=== PATIENT | female | born 1935 | race Hispanic/Latino ===

== ENCOUNTER 2017-12-28 09:02 | Observation (INO) | payer MEDICARE, BC ==
--- NOTE | 2017-12-28 09:17 | ED PDOC ---
Arrival/HPI - General Time Seen by Provider: 12/28/17 09:07 Historian: Patient, EMS - History of Present Illness Narrative History of Present Illness (Text): 12/28/17 09:10 82 y/o female, pmh including htn/hld/dm/breast cancer/triple bypass surgery, nkda, c/o lt. sided abdomen pain x 2-3 days with no fall or trauma. Lt. sided abdominal pain, on and off, lasts bowel movement today, associated with nausea, no vomiting, no diarrhea, vague abdominal pain, no chest pain or shortness of breath, no palpitation, no numbness or tingling, no dizziness, no other medical or psychological complaints. 12/28/17 13:18 Past Medical History - Provider Review Nursing Documentation Reviewed: Yes - Cardiac Hx Pacemaker: No - Neurological Hx Paralysis: No - Hematological/Oncological Hx Blood Transfusions: No - Musculoskeletal/Rheumatological Hx Musculoskeletal Disorders: No - Psychiatric Hx Emotional Abuse: No Hx Physical Abuse: No Hx Substance Use: No - Anesthesia Hx Anesthesia Reactions: No Hx Malignant Hyperthermia: No - Suicidal Assessment Feels Threatened In Home Enviroment: No Family/Social History - Physician Review Nursing Documentation Reviewed: Yes Family/Social History: Unknown Family HX Hx Alcohol Use: No Hx Substance Use: No Allergies/Home Meds Allergies/Adverse Reactions: Allergies No Known Allergies Allergy (Verified 12/28/17 09:25) Home Medications: Home Meds Medication Instructions Recorded Confirmed Calcium Carbonate/Vitamin D 1 sgl PO DAILY 07/10/14 12/28/17 [Calcium 1200 600 mg-100 Iu] Insulin Glargine,Hum.rec.anlog 11 unit SC HS 07/10/14 12/28/17 [Lantus] Insulin Lispro [humALOG] 5 units SC ACB 07/10/14 12/28/17 Levothyroxine Sodium 0.1 mg PO QAM 07/10/14 12/28/17 [Levothyroxine] Simvastatin 20 mg PO DIN 07/10/14 12/28/17 Vitamin E 400 iu PO DAILY 07/10/14 12/28/17 Aspirin [Adult Aspirin] 325 mg PO DAILY 12/28/17 12/28/17 Lisinopril [Zestril] 5 mg PO DAILY 12/28/17 12/28/17 Multivit-Min/FA/Lycopen/Lutein 1 tab PO DAILY 12/28/17 12/28/17 [Centrum Silver Tablet] Review of Systems - Review of Systems Constitutional: absent: Fatigue, Fevers Eyes: absent: Vision Changes ENT: absent: Hearing Changes Respiratory: absent: SOB, Cough Cardiovascular: absent: Chest Pain Gastrointestinal: Abdominal Pain, Nausea. absent: Diarrhea, Vomiting Musculoskeletal: absent: Arthralgias, Back Pain Skin: absent: Rash, Pruritis Neurological: absent: Headache, Dizziness Psychiatric: absent: Anxiety, Depression, Suicidal Ideation Physical Exam - Systems Exam Head: Present: Atraumatic, Normocephalic Pupils: Present: PERRL Extroacular Muscles: Present: EOMI Conjunctiva: Present: Normal Mouth: Present: Moist Mucous Membranes Neck: Present: Normal Range of Motion Respiratory/Chest: Present: Clear to Auscultation, Good Air Exchange. No: Respiratory Distress, Accessory Muscle Use Cardiovascular: Present: Regular Rate and Rhythm, Normal S1, S2. No: Murmurs Abdomen: Present: Tenderness (mild lt. sided), Normal Bowel Sounds. No: Distention, Peritoneal Signs, Rebound, Guarding Back: Present: Normal Inspection. No: CVA Tenderness, Midline Tenderness, Paraspinal Tenderness Upper Extremity: Present: Normal Inspection. No: Cyanosis, Edema Lower Extremity: Present: Normal Inspection. No: Edema Neurological: Present: GCS=15, CN II-XII Intact, Speech Normal Skin: Present: Warm, Dry, Normal Color. No: Rashes Psychiatric: Present: Alert, Oriented x 3, Normal Insight, Normal Concentration Medical Decision Making ED Course and Treatment: 12/28/17 09:18 -labs/cardiac enzymes/bnp -EKG -CXR -CT abdomen and pelvis -IVF/aspirin/morphine/nitro/oxygen 2L -Oxygen 2L -Observe and reassess 12/28/17 09:33 -EKG: NSR @ 96 BPM, mild 1-2mm ST elevation on the lead aVR/V1, 1mm ST depression V6/I/II waves, T wave inversion lead V6, no previous ekg available for comparison. -Dr. Yomi foote paged about this abnormal ekg. 12/28/17 09:45 -Dr. Foote visualized the ekg, not recommend code HEART at this time, agreed there is ischemic changes. 12/28/17 13:14 -EKG: NSR @ 96 BPM, mild 1-2mm ST elevation on the lead aVR/V1, 1mm ST depression V6/I/II waves, T wave inversion lead V6, no previous ekg available for comparison. -CXR show No active disease. -CT abdomen and pelvis show No acute abnormality. Sigmoid diverticulosis with probable chronic muscular hypertrophy and mild mural thickening. Atypical position of cecum in left abdomen common nonspecific. No bowel obstruction. Hiatal hernia. Cardiomegaly. CABG. -Labs show no acute findings -Lipase within normal limit -Troponin is negative for the 1st set -UA show ordered and pending result -All labs and radiology results discussed with the patient and the daughter, clinically concerning for possible ACS as the CT abdomen and pelvis show no significant acute findings can clearly explained the cause of non-specific lt. sided abdominal pain, improved with the medication given in the ER to treat for ACS, recommend admission for tele for troponin trending. Pt. and daughter request Dr. Garzon as insurance account executive and Dr. Arredondo as GI for consult on this case, routine consult ordered. HEART score is 7, high. -I spoke to the hospitalist Dr. Shiva Helm, discussed about the case/labs/radiology results, agreed to admit this patient to telemetry and follow up on the consult/case. 12/28/17 13:19 -Pt. didn't take her lisinopril 5mg po today, just ordered. - RAD Interpretation Radiology Orders: CT abdomen and pelvis: FINDINGS: LOWER THORAX: Sternotomy wires. CABG. Cardiomegaly. No infiltrate. Small hiatal hernia. LIVER: Unremarkable. No gross lesion or ductal dilatation. GALLBLADDER AND BILE DUCTS: Unremarkable. PANCREAS: Unremarkable. No gross lesion or ductal dilatation. SPLEEN: Unremarkable. ADRENALS: Unremarkable. No mass. KIDNEYS AND URETERS: Left upper pole low-density 1.2 cm mass, likely cyst. No other mass. No hydronephrosis. No calculus. VASCULATURE: Unremarkable. No aortic aneurysm. BOWEL: Sigmoid diverticulosis. Mild mural thickening of the sigmoid colon most likely reflects muscular hypertrophy from chronic diverticular disease. No evidence of colitis. Possible atypical position of cecum in the left abdomen. This may be seen in the setting of small bowel malrotation though other associated findings are not evident. No bowel obstruction. No other abnormal bowel loops. APPENDIX: Not identified. No secondary findings to suggest acute appendicitis. PERITONEUM: Unremarkable. No free fluid. No free air. LYMPH NODES: Unremarkable. No enlarged lymph nodes. BLADDER: Two right-sided bladder diverticula, 1 anteriorly and 1 laterally. REPRODUCTIVE: Multiple coarse uterine calcifications consistent with old degenerated calcified fibroids. BONES: No acute fracture. Extensive thoracolumbar degenerative disc disease. OTHER FINDINGS: None. IMPRESSION: No acute abnormality. Sigmoid diverticulosis with probable chronic muscular hypertrophy and mild mural thickening. Atypical position of cecum in left abdomen common nonspecific. No bowel obstruction. Hiatal hernia. Cardiomegaly. CABG. Chest xray: PROCEDURE: CHEST RADIOGRAPH, 1 VIEW HISTORY: lt. sided abdomen discomfort COMPARISON: 12/21/2015 FINDINGS: LUNGS: Clear. PLEURA: No pneumothorax or pleural fluid seen. CARDIOVASCULAR: Normal. OSSEOUS STRUCTURES: Sternal wires VISUALIZED UPPER ABDOMEN: Normal. OTHER FINDINGS: None. IMPRESSION: No active disease. Housekeeper Child Care: Radiologist - EKG Interpretation EKG Interpretation (Text): 12/28/17 09:42 EKG: NSR @ 96 BPM, mild 1-2mm ST elevation on the lead aVR/V1, 1mm ST depression V6/I/II waves, T wave inversion lead V6, no previous ekg available for comparison. Interpreted by ED Physician: Yes Type: 12 lead EKG Comparison: No previous EKG avail. - PA / DISPLAY MANAGER / Resident Statement /DO has reviewed & agrees with the documentation as recorded. Disposition/Present on Arrival - Present on Arrival Any Indicators Present on Arrival: No History of DVT/PE: No History of Uncontrolled Diabetes: No Urinary Catheter: No History of Decub. Ulcer: No - Disposition Have Diagnosis and Disposition been Completed?: Yes Diagnosis: Abnormal EKG, Abdominal pain Disposition: HOSPITALIZED Disposition Time: 13:17 Patient Plan: Admission, Observation, Telemetry Patient Problems: Current Active Problems Problem Status Onset Abnormal EKG Acute Abdominal pain Acute Condition: STABLE Referrals: Jayy Barney MD [Primary Care Provider] - Follow up with primary
[2017-12-28 09:22] VITALS: BMI 22.1
[2017-12-28] MEDS ORDERED: Sodium Chloride 0.9% 1,000 ML IV SCH (09:30)
[2017-12-28] MEDS ORDERED: Morphine 4 mg/ml ISec IVP STA (09:32)
[2017-12-28 11:04] LABS: BASO # 0.02 K/mm3 (0.0-2.0); BASO % 0.3 % (0.0-3.0); EOS % 0.1 % (1.5-5.0); GRAN # 6.8 (1.4-6.5); GRAN % 85.8 % (50.0-68.0); HEMOGLOBIN 12.7 g/dL (12.0-16.0); LYMPH # 0.7 (1.2-3.4); LYMPH % 8.7 % (22.0-35.0); MEAN CELL VOLUME 90.8 fl (80.0-105.0); MEAN CORPUSCULAR HEMOGLOBIN 30.8 pg (25.0-35.0); MEAN CORPUSCULAR HGB CONC 33.9 g/dl (31.0-37.0); MEAN PLATELET VOLUME 9.1 fl (7.0-11.0); MONO # 0.4 (0.1-0.6); MONO % 5.1 % (1.0-6.0); RBC 4.13 10^6/uL (3.5-6.1); RED CELL DISTRIBUTION WIDTH 13.5 % (11.5-14.5)
[2017-12-28 11:05] LABS: WHITE BLOOD COUNT 7.9 10^3/ul (4.5-11.0)
[2017-12-28 11:07] LABS: ALB/GLOB RATIO 1.4 (1.1-1.8); ALBUMIN 4.2 g/dL (3.0-4.8); ALT/SGPT 24 U/L (7-56); AST/SGOT 36 U/L (14-36); BLOOD UREA NITROGEN 14 mg/dL (7-21); GFR NON-AFRICAN AMERICAN > 60; INR 1.06; LIPASE 18 U/L (23-300); PROTHROMBIN TIME 12.2 SECONDS (9.4-12.5)
[2017-12-28 11:18] LABS: TROPONIN I < 0.01 ng/mL
[2017-12-28] MEDS ORDERED: Iohexol 350 MG/100 ML VIAL ONE (11:40)
--- NOTE | 2017-12-28 12:48 | RAD ---
Date of service: 12/28/2017 PROCEDURE: CHEST RADIOGRAPH, 1 VIEW HISTORY: lt. sided abdomen discomfort COMPARISON: 12/21/2015 FINDINGS: LUNGS: Clear. PLEURA: No pneumothorax or pleural fluid seen. CARDIOVASCULAR: Normal. OSSEOUS STRUCTURES: Sternal wires VISUALIZED UPPER ABDOMEN: Normal. OTHER FINDINGS: None. IMPRESSION: No active disease.
--- NOTE | 2017-12-28 12:48 | CT ---
Date of service: 12/28/2017 PROCEDURE: CT Abdomen and Pelvis with contrast HISTORY: lt. sided abdominal pain x 2 days. COMPARISON: None. TECHNIQUE: Contrast dose: 100 mL Omnipaque 350 Radiation dose: Total exam DLP = 281.71 mGy-cm. This CT exam was performed using one or more of the following dose reduction techniques: Automated exposure control, adjustment of the mA and/or kV according to patient size, and/or use of iterative reconstruction technique. FINDINGS: LOWER THORAX: Sternotomy wires. CABG. Cardiomegaly. No infiltrate. Small hiatal hernia. LIVER: Unremarkable. No gross lesion or ductal dilatation. GALLBLADDER AND BILE DUCTS: Unremarkable. PANCREAS: Unremarkable. No gross lesion or ductal dilatation. SPLEEN: Unremarkable. ADRENALS: Unremarkable. No mass. KIDNEYS AND URETERS: Left upper pole low-density 1.2 cm mass, likely cyst. No other mass. No hydronephrosis. No calculus. VASCULATURE: Unremarkable. No aortic aneurysm. BOWEL: Sigmoid diverticulosis. Mild mural thickening of the sigmoid colon most likely reflects muscular hypertrophy from chronic diverticular disease. No evidence of colitis. Possible atypical position of cecum in the left abdomen. This may be seen in the setting of small bowel malrotation though other associated findings are not evident. No bowel obstruction. No other abnormal bowel loops. APPENDIX: Not identified. No secondary findings to suggest acute appendicitis. PERITONEUM: Unremarkable. No free fluid. No free air. LYMPH NODES: Unremarkable. No enlarged lymph nodes. BLADDER: Two right-sided bladder diverticula, 1 anteriorly and 1 laterally. REPRODUCTIVE: Multiple coarse uterine calcifications consistent with old degenerated calcified fibroids. BONES: No acute fracture. Extensive thoracolumbar degenerative disc disease. OTHER FINDINGS: None. IMPRESSION: No acute abnormality. Sigmoid diverticulosis with probable chronic muscular hypertrophy and mild mural thickening. Atypical position of cecum in left abdomen common nonspecific. No bowel obstruction. Hiatal hernia. Cardiomegaly. CABG.
--- NOTE | 2017-12-28 13:06 | CARD ---
APPROVED REPORT Date of service: 12/28/2017 EKG Measurement Heart [id number] NC 126P59 [id number] <Conclusion> Normal sinus rhythm ST & T Changes. Correlate Clinically. Poor R Progession V Leads.
--- NOTE | 2017-12-28 14:08 | CP.PCM.HP ---
History of Present Illness - History of Present Illness History of Present Illness: Mrs. Ceja is a 82 yr old female with PMH HTN, HLD, DM, Breast Cancer and CABGx2 (1982 and 1995) [place] [facility] [place] of dull LLQ abdominal pain associated with Nausea. She states that the pain has improved since being in the Ed and now denies nausea. She states that her last BM was this Am and denies any blood, diarrhea or other stool changes. She otherwise denies DINH, CP, SOB, vomiting, stool changes, dysuria, and extremity pain. She believes her last colonoscopy was at age 72 and does not believe there were any abnormalities. PMH: HTN, HLD, DM, Breast Cancer and CABGx2 (1982 and 1995) PSH: breast cancer biopsies, CABG x2 Family Hx: denies All: nkda Social: denies x3 Home meds: ASA, lisinopril, insulin Lispro and Glargine, levothyroxine, simvastatin Present on Admission - Present on Admission Any Indicators Present on Admission: No Review of Systems - Review of Systems All systems: reviewed and no additional remarkable complaints except (as per HPI) Past Patient History - Past Social History Smoking Status: Never Smoked - CARDIAC Hx Pacemaker: No - PULMONARY Hx Respiratory Disorders: No - NEUROLOGICAL Hx Paralysis: No - HEENT Hx HEENT Problems: No - RENAL Hx Chronic Kidney Disease: No - ENDOCRINE/METABOLIC Hx Endocrine Disorders: Yes Hx Diabetes Mellitus Type 1: Yes - HEMATOLOGICAL/ONCOLOGICAL Hx Blood Transfusions: No - INTEGUMENTARY Hx Dermatological Problems: No - MUSCULOSKELETAL/RHEUMATOLOGICAL Hx Musculoskeletal Disorders: No - GASTROINTESTINAL Hx Gastrointestinal Disorders: No - GENITOURINARY/GYNECOLOGICAL Hx Genitourinary Disorders: No - PSYCHIATRIC Hx Emotional Abuse: No Hx Physical Abuse: No Hx Substance Use: No - SURGICAL HISTORY Hx Surgeries: Yes Other/Comment: lumpectomy - ANESTHESIA Hx Anesthesia Reactions: No Hx Malignant Hyperthermia: No Meds Allergies/Adverse Reactions: Allergies Allergy/AdvReac Type Severity Reaction Status Date / Time No Known Allergies Allergy Verified 12/28/17 09:25 Physical Exam - Constitutional Appears: Well, Non-toxic, No Acute Distress - Head Exam Head Exam: ATRAUMATIC, NORMOCEPHALIC - Eye Exam Eye Exam: EOMI - ENT Exam ENT Exam: Mucous Membranes Dry - Respiratory Exam Respiratory Exam: Clear to Auscultation Bilateral, NORMAL BREATHING PATTERN - Cardiovascular Exam Cardiovascular Exam: REGULAR RHYTHM - GI/Abdominal Exam GI & Abdominal Exam: Soft, Tenderness (minimal LLQ tenderness). absent: Distended, Guarding, Hernia, Rebound, Rigid - Extremities Exam Extremities exam: Positive for: pedal pulses present. Negative for: calf tenderness, pedal edema, tenderness - Neurological Exam Neurological exam: Alert, CN II-XII Intact, Oriented x3 - Psychiatric Exam Psychiatric exam: Normal Affect, Normal Mood - Skin Skin Exam: Dry, Intact, Normal Color, Warm Results - Vital Signs Recent Vital Signs: Last Vital Signs Temp 98.1 F 12/28/17 09:20 Pulse 84 12/28/17 13:40 Resp 16 12/28/17 10:23 BP 191/71 H 12/28/17 13:40 Pulse Ox 100 12/28/17 10:23 - Labs Result Diagrams: 12/28/17 10:15 12/28/17 10:15 Labs: Laboratory Results - last 24 hr 12/28/17 12/28/17 12/28/17 10:15 10:15 10:15 WBC 7.9 D RBC 4.13 Hgb 12.7 Hct 37.5 MCV 90.8 MCH 30.8 MCHC 33.9 RDW 13.5 Plt Count 249 MPV 9.1 Gran % 85.8 H Lymph % (Auto) 8.7 L Franklin % (Auto) 5.1 Eos % (Auto) 0.1 L Baso % (Auto) 0.3 Gran # 6.80 H Lymph # (Auto) 0.7 L Franklin # (Auto) 0.4 Eos # (Auto) 0.0 Baso # (Auto) 0.02 PT 12.2 INR 1.06 APTT 27.0 Sodium 133 Potassium 4.2 Chloride 98 Carbon Dioxide 24 Anion Gap 16 BUN 14 Creatinine 0.7 Est GFR ( Amer) > 60 Est GFR (Non-Af Amer) > 60 Random Glucose 262 H Calcium 9.0 Magnesium 1.9 Total Bilirubin 1.0 AST 36 ALT 24 Alkaline Phosphatase 77 Lactate Dehydrogenase 510 Total Creatine Kinase 115 Troponin I < 0.01 Total Protein 7.2 Albumin 4.2 Globulin 3.0 Albumin/Globulin Ratio 1.4 Lipase 18 L Assessment & Plan - Assessment and Plan (Free Text) Assessment: 82 yr old female with PMH HTN, HLD DM, CAD with CABG x 2 presenting with LLQ abdominal pain and nuasea x [address] imaging negative for bowel pathology, CXR negative, EKG shows mild ST changes, unsure of age no previous EKG for comparison, troponins negative. Plan: Abdominal pain - denies vomiting and stool changes, nausea resolved - no previous abdominal surgeries, last BM this am - CT scan shows no diverticulitis, mesenteric edema or signs of bowel pathology - abdomen is soft, minimally tender LLQ with no guarding - EKG shows slight ST changes, Cardiology consulted, recs appreciated - first troponin negative will repeat/ trend - tylenol PRN for pain CAD: - EKG as above, cardio consulted, recs appreciated - will f/u troponins - continue home ASA - no chest pain at this time will continue to monitor DM - ISS high - Blood glucose checks ACHS - maintain euglycemia - hgbA1c ordered - HHD, moderate consistent carb HTN - c/w home medications - maintain MAP >65 HLD - c/w home medications - lipid panel Patient seen and discussed with Dr. Marissa Gudino, PGY 1 - Date & Time Date: 12/28/17 Time: 13:35
[2017-12-28] MEDS ORDERED: Dextrose 50% SYRINGE Inj (50 ml) IV PRN (14:42)
[2017-12-28] MEDS ORDERED: Insulin Regular 1 UNITS/0.01 ML ML ONE (15:53)
[2017-12-28] MEDS: Insulin Reg-HIGH-Coverage SC SCH ×2 (15:54→21:34)
[2017-12-28 18:01] LABS: HDL CHOLESTEROL 69 mg/dL (29-60)
[2017-12-28 18:12] LABS: LDL CHOLESTEROL 69 mg/dL (0-129)
[2017-12-28 18:13] LABS: TROPONIN I < 0.01 ng/mL
[2017-12-28 23:18] VITALS: O2SAT 97
[2017-12-29] MEDS ORDERED: Levothyroxine 100 MCG TAB PO SCH (06:00)
[2017-12-29] MEDS: Insulin Reg-HIGH-Coverage SC SCH ×2 (08:09→12:07)
--- NOTE | 2017-12-29 10:49 | CP.PCM.CON ---
History of Present Illness - History of Present Illness History of Present Illness: PGY-4 GI Fellow Consult Note Pt is a 82 yo WF with CAD (s/p CABG in and ), Breast CA, HTN, DM presenting with abdominal pain. Pain is L sided abdominal pain x 2-3 days associated with mild nausea. Pain started about 3 days ago at rest, patient does not recall any trauma or inciting event or exertion. Pain is located in the LUQ described as dull, non radiating pain that comes and goes. Rated 4/10, associated with bloating, denies any relation to food intake or BM. Reports mild nausea with the pain however denies any vomiting, took pepcid 1 day [employer] which improved symptoms. Patient denies any change in bowel habits or medications. Denies any BRBPR or dark stools, has 1 soft BM per day, last BM this morning soft non bloody. Does not recall last CSPY or ever having an EGD. Denies any recent OTC NSAID use, however has taken ASA 325 for "many years" without issue. Denies any heartburn/reflux symptoms, odynophagia or dysphagia. Denies any PPI use. Otherwise, denies any fevers, chills, CP, palpitations, cough, sob, vomiting, diarrhea, constipation, straining, decreased exercise tolerance, or urinary complaints. Came to ED on 12/28 because symptoms have not resolved. 12 point ROS negative other than stated above PMH: HTN, HLD, DM, Breast Cancer and CABGx2 (1982 and 1995) PSH: breast cancer biopsies, CABG x2 Family Hx: denies All: nkda Social: denies x3 Home meds: ASA, lisinopril, insulin Lispro and Glargine, levothyroxine, simvastatin Past Patient History - Past Social History Smoking Status: Never Smoked - CARDIAC Hx Cardiac Disorders: Yes Hx Hypertension: Yes - PULMONARY Hx Respiratory Disorders: No - NEUROLOGICAL Hx Paralysis: No - HEENT Hx HEENT Problems: No - RENAL Hx Chronic Kidney Disease: No - ENDOCRINE/METABOLIC Hx Endocrine Disorders: Yes Hx Diabetes Mellitus Type 2: Yes - HEMATOLOGICAL/ONCOLOGICAL Hx Cancer: Yes - INTEGUMENTARY Hx Dermatological Problems: No - MUSCULOSKELETAL/RHEUMATOLOGICAL Hx Musculoskeletal Disorders: Yes Hx Arthritis: Yes Hx Falls: No - GASTROINTESTINAL Hx Gastrointestinal Disorders: No - GENITOURINARY/GYNECOLOGICAL Hx Genitourinary Disorders: No - PSYCHIATRIC Hx Substance Use: No - SURGICAL HISTORY Hx Surgeries: Yes Hx Open Heart Surgery: Yes (CABG x2) - ANESTHESIA Hx Anesthesia Reactions: No Hx Malignant Hyperthermia: No Meds Allergies/Adverse Reactions: Allergies Allergy/AdvReac Type Severity Reaction Status Date / Time No Known Allergies Allergy Verified 12/28/17 09:25 - Medications Medications: Current Medications Acetaminophen (Tylenol 325mg Tab) 325 mg PO Q4 PRN PRN Reason: Pain, Mild (1-3) Aspirin (Aspirin) 325 mg PO DAILY [facility] Atorvastatin Calcium (Lipitor) 20 mg PO DIN [facility] Last Admin: 12/28/17 17:42 Dose: 20 mg Insulin Human Regular (Humulin R High) 0 units SC ACHS [facility]; Protocol Last Admin: 12/29/17 08:09 Dose: 10 unit Levothyroxine Sodium (Synthroid) 100 mcg PO 0600 [facility] Last Admin: 12/29/17 05:09 Dose: 100 mcg Physical Exam - Constitutional Appears: Well, Non-toxic, No Acute Distress - Head Exam Head Exam: ATRAUMATIC, NORMAL INSPECTION - Eye Exam Eye Exam: EOMI. absent: Conjunctival injection, Scleral icterus Pupil Exam: NORMAL ACCOMODATION - ENT Exam ENT Exam: Mucous Membranes Moist. absent: Mucous Membranes Dry, Normal External Ear Exam - Respiratory Exam Respiratory Exam: Clear to Auscultation Bilateral, NORMAL BREATHING PATTERN. absent: Accessory Muscle Use, Respiratory Distress - Cardiovascular Exam Cardiovascular Exam: REGULAR RHYTHM, RRR. absent: Tachycardia, Systolic Murmur - GI/Abdominal Exam GI & Abdominal Exam: Normal Bowel Sounds, Soft. absent: Bruit, Diminished Bowel Sounds, Distended, Firm, Guarding, Hernia, Hyperactive Bowel Sounds, Hypoactive Bowel Sounds, Mass, Organomegaly, Pulsatile Mass, Rebound, Rigid, Tenderness - Rectal Exam Rectal Exam: Deferred - Extremities Exam Extremities exam: Positive for: normal inspection. Negative for: pedal edema - Neurological Exam Neurological exam: Alert, CN II-XII Intact, Oriented x3 - Psychiatric Exam Psychiatric exam: Normal Affect, Normal Mood - Skin Skin Exam: Warm Additional comments: scattered vitiligo Results - Vital Signs Recent Vital Signs: Last Vital Signs Temp 97.9 F 12/29/17 05:55 Pulse 77 12/29/17 05:55 Resp 20 12/29/17 05:55 BP 130/62 12/29/17 05:55 Pulse Ox 97 12/29/17 05:55 - Labs Result Diagrams: 12/28/17 10:15 12/28/17 10:15 Labs: Laboratory Results - last 24 hr 12/28/17 12/28/17 12/28/17 10:15 10:15 10:15 WBC 7.9 D RBC 4.13 Hgb 12.7 Hct 37.5 MCV 90.8 MCH 30.8 MCHC 33.9 RDW 13.5 Plt Count 249 MPV 9.1 Gran % 85.8 H Lymph % (Auto) 8.7 L Walton % (Auto) 5.1 Eos % (Auto) 0.1 L Baso % (Auto) 0.3 Gran # 6.80 H Lymph # (Auto) 0.7 L Walton # (Auto) 0.4 Eos # (Auto) 0.0 Baso # (Auto) 0.02 PT 12.2 INR 1.06 APTT 27.0 Sodium 133 Potassium 4.2 Chloride 98 Carbon Dioxide 24 Anion Gap 16 BUN 14 Creatinine 0.7 Est GFR ( Amer) > 60 Est GFR (Non-Af Amer) > 60 POC Glucose (mg/dL) Random Glucose 262 H Hemoglobin A1c Calcium 9.0 Magnesium 1.9 Total Bilirubin 1.0 AST 36 ALT 24 Alkaline Phosphatase 77 Lactate Dehydrogenase 510 Total Creatine Kinase 115 Troponin I < 0.01 Total Protein 7.2 Albumin 4.2 Globulin 3.0 Albumin/Globulin Ratio 1.4 Triglycerides Cholesterol LDL Cholesterol Direct HDL Cholesterol Lipase 18 L TSH 3rd Generation 12/28/17 12/28/17 12/28/17 15:44 17:30 17:30 WBC RBC Hgb Hct MCV MCH MCHC RDW Plt Count MPV Gran % Lymph % (Auto) Walton % (Auto) Eos % (Auto) Baso % (Auto) Gran # Lymph # (Auto) Walton # (Auto) Eos # (Auto) Baso # (Auto) PT INR APTT Sodium Potassium Chloride Carbon Dioxide Anion Gap BUN Creatinine Est GFR ( Amer) Est GFR (Non-Af Amer) POC Glucose (mg/dL) 251 H Random Glucose Hemoglobin A1c Calcium Magnesium Total Bilirubin AST ALT Alkaline Phosphatase Lactate Dehydrogenase Total Creatine Kinase Troponin I < 0.01 Total Protein Albumin Globulin Albumin/Globulin Ratio Triglycerides 41 Cholesterol 161 LDL Cholesterol Direct 69 HDL Cholesterol 69 H Lipase TSH 3rd Generation 1.47 12/28/17 12/28/17 12/28/17 17:30 21:00 21:29 WBC RBC Hgb Hct MCV MCH MCHC RDW Plt Count MPV Gran % Lymph % (Auto) Walton % (Auto) Eos % (Auto) Baso % (Auto) Gran # Lymph # (Auto) Walton # (Auto) Eos # (Auto) Baso # (Auto) PT INR APTT Sodium Potassium Chloride Carbon Dioxide Anion Gap BUN Creatinine Est GFR ( Amer) Est GFR (Non-Af Amer) POC Glucose (mg/dL) 186 H Random Glucose Hemoglobin A1c 7.9 H Calcium Magnesium Total Bilirubin AST ALT Alkaline Phosphatase Lactate Dehydrogenase Total Creatine Kinase Troponin I < 0.01 Total Protein Albumin Globulin Albumin/Globulin Ratio Triglycerides Cholesterol LDL Cholesterol Direct HDL Cholesterol Lipase TSH 3rd Generation Assessment & Plan - Assessment and Plan (Free Text) Assessment: 82 y/o F HX DM, HTN, HLD, hypothyroid, CAD s/p CABGx2 p/w L sided abdominal pain x 2-3d associated with mild nausea. Admitted to [facility] [place] for r/o ACS. GI consulted f or L sided abdominal pain. #L sided abdominal pain Complaint of mild pain with no ttp on exam. LCTAP showing diverticulosis without any acute pathology. Given extensive cardiac history, would r/o any cardiac cause for atypical chest pain (elderly, DM) first. If pain continues despite negative cardiac workup, differential includes dyspepsia possibly 2/2 to GERD/gastric ulcer/gastritis given longstanding history of ASA 325 use. No signs of bleeding, H/H stable. Negaitve lipase. No signs of infection. No relation to food/BM. Unlikely gastroparesis given long standing DM has been well controlled, but would check A1c. Unlikely constipation as patient is having 1 soft BM/d without straining. Malignancy on differential given age and no recent endoscopies, however denies any alarm symptoms. Would hold off any endoscopic procedures given age and comorbidities and as pain seems to be resolving. Plan: Prelim note, recs not final until signed and staffed - F/u UA - If above negative, would consider treating for diverticulitis with Cipro+Metro - no plan for endoscopic procedure at this time, would consider EGD if symptoms persist (and if negative cardiac w/u and negative UA) - Stool/breath test for H. Pylori (PPI naive) - Consider ppi upon discharge given patient on ASA 325
[2017-12-29 12:07] VITALS: BP 138/54; RESP 18; TEMP 97.8
[2017-12-29 16:11] VITALS: PULSE 78
--- NOTE | 2017-12-29 17:27 | CP.PCM.DIS ---
Provider - Provider Date of Admission: 12/28/17 13:12 Attending physician: Lori Flores MD Primary care physician: Jayy Barney MD Time Spent in preparation of Discharge (in minutes): 45 Diagnosis - Discharge Diagnosis (1) Diverticulosis Status: Acute Priority: High Hospital Course - Lab Results Lab Results: Most Recent Lab Values WBC 7.9 10^3/ul (4.5-11.0) D 12/28/17 10:15 RBC 4.13 10^6/uL (3.5-6.1) 12/28/17 10:15 Hgb 12.7 g/dL (12.0-16.0) 12/28/17 10:15 Hct 37.5 % (36.0-48.0) 12/28/17 10:15 MCV 90.8 fl (80.0-105.0) 12/28/17 10:15 MCH 30.8 pg (25.0-35.0) 12/28/17 10:15 MCHC 33.9 g/dl (31.0-37.0) 12/28/17 10:15 RDW 13.5 % (11.5-14.5) 12/28/17 10:15 Plt Count 249 10^3/uL (120.0-450.0) 12/28/17 10:15 MPV 9.1 fl (7.0-11.0) 12/28/17 10:15 Gran % 85.8 % (50.0-68.0) H 12/28/17 10:15 Lymph % (Auto) 8.7 % (22.0-35.0) L 12/28/17 10:15 Gilmer % (Auto) 5.1 % (1.0-6.0) 12/28/17 10:15 Eos % (Auto) 0.1 % (1.5-5.0) L 12/28/17 10:15 Baso % (Auto) 0.3 % (0.0-3.0) 12/28/17 10:15 Gran # 6.80 (1.4-6.5) H 12/28/17 10:15 Lymph # (Auto) 0.7 (1.2-3.4) L 12/28/17 10:15 Gilmer # (Auto) 0.4 (0.1-0.6) 12/28/17 10:15 Eos # (Auto) 0.0 (0.0-0.7) 12/28/17 10:15 Baso # (Auto) 0.02 K/mm3 (0.0-2.0) 12/28/17 10:15 PT 12.2 SECONDS (9.4-12.5) 12/28/17 10:15 INR 1.06 12/28/17 10:15 APTT 27.0 Seconds (25.1-36.5) 12/28/17 10:15 Sodium 133 mmol/L (132-148) 12/28/17 10:15 Potassium 4.2 mmol/L (3.6-5.0) 12/28/17 10:15 Chloride 98 mmol/L (98-107) 12/28/17 10:15 Carbon Dioxide 24 mmol/L (21-33) 12/28/17 10:15 Anion Gap 16 (10-20) 12/28/17 10:15 BUN 14 mg/dL (7-21) 12/28/17 10:15 Creatinine 0.7 mg/dl (0.7-1.2) 12/28/17 10:15 Est GFR ( Amer) > 60 12/28/17 10:15 Est GFR (Non-Af Amer) > 60 12/28/17 10:15 POC Glucose (mg/dL) 192 mg/dL (65-110) H 12/29/17 15:53 Random Glucose 262 mg/dL (70-110) H 12/28/17 10:15 Hemoglobin A1c 7.9 % (4.2-6.5) H 12/28/17 17:30 Calcium 9.0 mg/dL (8.4-10.5) 12/28/17 10:15 Magnesium 1.9 mg/dL (1.7-2.2) 12/28/17 10:15 Total Bilirubin 1.0 mg/dL (0.2-1.3) 12/28/17 10:15 AST 36 U/L (14-36) 12/28/17 10:15 ALT 24 U/L (7-56) 12/28/17 10:15 Alkaline Phosphatase 77 U/L (38-126) 12/28/17 10:15 Lactate Dehydrogenase 510 U/L (333-699) 12/28/17 10:15 Total Creatine Kinase 115 U/L (35-230) 12/28/17 10:15 Troponin I < 0.01 ng/mL 12/28/17 21:00 Total Protein 7.2 g/dL (5.8-8.3) 12/28/17 10:15 Albumin 4.2 g/dL (3.0-4.8) 12/28/17 10:15 Globulin 3.0 gm/dL 12/28/17 10:15 Albumin/Globulin Ratio 1.4 (1.1-1.8) 12/28/17 10:15 Triglycerides 41 mg/dL (35-160) 12/28/17 17:30 Cholesterol 161 mg/dL (130-200) 12/28/17 17:30 LDL Cholesterol Direct 69 mg/dL (0-129) 12/28/17 17:30 HDL Cholesterol 69 mg/dL (29-60) H 12/28/17 17:30 Lipase 18 U/L (23-300) L 12/28/17 10:15 TSH 3rd Generation 1.47 mIU/mL (0.46-4.68) 12/28/17 17:30 - Hospital Course Hospital Course: Pt is a 82 yo female with PMH of HTN, HLD, DM, Breast Cancer and CABGx2 who presents with LLQ abdominal pain for one day and associated nausea. EKG showed mild ST changes (troponins negative). Pt was admitted to telemetry for cardiac monitoring and rule out of cardiac cause of possible atypical chest pain as well as evaluation of her abdominal pain. A CT of abdomen and pelvis was consistent for sigmoid diverticulosis. Cardiology and GI were consulted for recommendations. Pt is stable for discharge to home as per Dr. Ann. Pt is to f/u with PMD Dr. Barney within 1 week of discharge. Pt is to resume all home medications, Asprin, Lisinopril, Insulin Lispro, Insulin Glargine, Calcium and Vit D suppliments, VIt E suppliment, Simvastatin, and Levothyroxine. - Date & Time of H&P Date of H&P: 12/29/17 Time of H&P: 17:29 Discharge Exam - Head Exam Head Exam: ATRAUMATIC, NORMAL INSPECTION - ENT Exam ENT Exam: Mucous Membranes Moist - Respiratory Exam Respiratory Exam: NORMAL BREATHING PATTERN - Cardiovascular Exam Cardiovascular Exam: REGULAR RHYTHM - GI/Abdominal Exam Additional comments: mild tenderness to palpation in the lower abdomen L>R - Neurological Exam Neurological exam: Oriented x3 Discharge Plan - Discharge Medications Prescriptions: Ciprofloxacin HCl [Cipro] 500 mg PO Q12 #10 tablet Metronidazole 500 mg PO Q8 #15 tablet - Follow Up Plan Condition: STABLE Disposition: HOME/ ROUTINE Instructions: Heart Healthy Diet, Arrhythmias (DC), Acute Abdomen (Belly Pain), Adult (DC), Diabetes Diet , Acute Abdominal Pain (DC), Acute Abdominal Pain (GEN) Additional Instructions: 1. Please follow up with your primary care physician within one week. 2. Take antibiotics CIPRO 500mg every 12 hours for 5 days; Metronidazole 500mg every 8 hours for 5 days. 3. Please continue to take your home medications as prescribed 4. If your symptoms return or worsen, please go to the nearest emergency department Referrals: Jayy Barney MD [Primary Care Provider] -
== END 2017-12-29 17:33 | disposition home or self-care (01) ==
LOC: ED 09:02 → ERH 13:12 → 2RSO 20:51
PROVIDERS: ADMIT Hospitalist; ATTEND Internal Medicine
DX: K57.30 Diverticulosis of large intestine without perforation or abscess without bleeding (principal); I11.9 Hypertensive heart disease without heart failure; E78.5 Hyperlipidemia, unspecified; I25.10 Atherosclerotic heart disease of native coronary artery without angina pectoris; K44.9 Diaphragmatic hernia without obstruction or gangrene; Z79.4 Long term (current) use of insulin; Z79.82 Long term (current) use of aspirin; Z85.3 Personal history of malignant neoplasm of breast; Z95.1 Presence of aortocoronary bypass graft; E10.9 Type 1 diabetes mellitus without complications
CPT/HCPCS: 36415; 71045; 74177; 80053; 80061; 82550; 82948; 83036; 83615; 83690; 83735; 84443; 84484; 85025; 85610; 85730; 93005; 96361; 96374; 99285; G0378; J7030; Q9967

== ENCOUNTER 2017-12-31 08:06 | Emergency (ER) | payer MEDICARE, BC ==
[2017-12-31 08:37] VITALS: BMI 21.7
[2017-12-31 08:44] VITALS: RESP 18
--- NOTE | 2017-12-31 09:58 | ED PDOC ---
Arrival/HPI - General Chief Complaint: Abdominal Pain Time Seen by Provider: 12/31/17 09:42 Historian: Patient - History of Present Illness Narrative History of Present Illness (Text): 12/31/17 09:35 82 F, whose past medical history includes htn/hld/dm/breast cancer/triple bypass surgery, nkda, who was brought in by EMS to the Emergency department with cc of left sided abdominal pain. Patient reports the pain started yesterday evening after supper. Patient presented to the emergency department 3 days ago on 12/28/17 for same symptoms. Patient denies taking any medication to relieve the pain. Patient is unsure of having fever. Patient denies diarrhea or any other complaints. PMD: Dr. Barney Time/Duration: 24 hours (onset: yesterday evening after supper) Symptom Onset: Sudden Symptom Course: Unchanged Context: Home Past Medical History - Provider Review Nursing Documentation Reviewed: Yes - Infectious Disease Hx of Infectious Diseases: None - Reproductive Menopause: Yes - Cardiac Other/Comment: triple bypass - Pulmonary Hx Respiratory Disorders: No - Neurological Hx Paralysis: No - HEENT Hx HEENT Disorder: No - Renal Hx Renal Disorder: No - Endocrine/Metabolic Hx Endocrine Disorders: Yes Hx Diabetes Mellitus Type 2: Yes - Hematological/Oncological Hx Blood Transfusions: No - Integumentary Hx Dermatological Disorder: No - Musculoskeletal/Rheumatological Hx Musculoskeletal Disorders: No - Gastrointestinal Hx Gastrointestinal Disorders: No - Genitourinary/Gynecological Hx Genitourinary Disorders: No - Psychiatric Hx Emotional Abuse: No Hx Physical Abuse: No Hx Substance Use: No - Surgical History Hx Open Heart Surgery: Yes (CABG x2) Other/Comment: breast Ca R lumphectomy - Anesthesia Hx Anesthesia Reactions: No Hx Malignant Hyperthermia: No - Suicidal Assessment Feels Threatened In Home Enviroment: No Family/Social History - Physician Review Nursing Documentation Reviewed: Yes Family/Social History: No Known Family HX Smoking Status: Never Smoked Hx Alcohol Use: No Hx Substance Use: No Allergies/Home Meds Allergies/Adverse Reactions: Allergies No Known Allergies Allergy (Verified 12/28/17 09:25) Home Medications: Home Meds Medication Instructions Recorded Confirmed Calcium Carbonate/Vitamin D 1 sgl PO DAILY 07/10/14 12/28/17 [Calcium 1200 600 mg-100 Iu] Insulin Glargine,Hum.rec.anlog 11 unit [facility] 07/10/14 12/28/17 [Lantus] Insulin Lispro [humALOG] 5 units SC ACB 07/10/14 12/28/17 Levothyroxine Sodium 0.1 mg PO QAM 07/10/14 12/28/17 [Levothyroxine] Simvastatin 20 mg PO DIN 07/10/14 12/28/17 Vitamin E 400 iu PO DAILY 07/10/14 12/28/17 Aspirin [Adult Aspirin] 325 mg PO DAILY 12/28/17 12/28/17 Lisinopril [Zestril] 5 mg PO DAILY 12/28/17 12/28/17 Multivit-Min/FA/Lycopen/Lutein 1 tab PO DAILY 12/28/17 12/28/17 [Centrum Silver Tablet] Review of Systems - Physician Review All systems were reviewed & negative as marked: Yes (All other systems negative except that noted in the HPI.) Physical Exam - Physical Exam Narrative Physical Exam (Text): Gen: VS reviewed, alert, well developed, well nourished, nontoxic, mild distress. ENT: normal pharynx Eye: EOMI, PERRL Neck: no JVD, supple, no adenopathy CV: regular rate, regular rhythm, no rubs, no murmer, no gallops, S1, S2, pulses equal and strong Pulm: no distress, clear to auscultation, no wheeze, no rhonci, breath sounds equal, no rales. Abd: soft, no guarding, no rebound, no rigidity, normal bowel sounds. Questionable left lower quadrant tenderness. Ext: no edema Skin: good color, no rash, no cyanosis Psych: responds appropriately to questions, normal affect Neuro: oriented x3, CN2-12 intact grossly, motor intact, sensation intact Vital Signs Reviewed: Yes Vital Signs Temp Pulse Resp BP Pulse Ox 12/31/17 08:06 98.1 F 86 18 167/68 H 96 Temperature: Afebrile Blood Pressure: Hypertensive (at 167/68) Pulse: Regular Respiratory Rate: Normal Appearance: Positive for: Well-Appearing, Non-Toxic Pain Distress: Mild Mental Status: Positive for: Alert and Oriented X 3 Finger Stick Blood Glucose: 314 Medical Decision Making ED Course and Treatment: 12/31/17 09:35 Impression: Differential Diagnosis included but are not limited to: Plan: -- BMP -- CBC (with differential) -- Urinalysis -- Reassess and disposition Prior Visits: Notes and results from previous visits were reviewed. Patient was last seen in the emergency department on 12/28/17 c/o lt. sided abdomen pain x 2-3 days with no fall or trauma. Patient was hospitalized in stable condition for Telemetry observation, with diagnosis of abnormal EKG and abdominal pain. Progress Notes: 12/31/17 13:04 all records reviewed from recent hospitalization. It is presumed that the patient was started on empiric antibiotics as the patient was having LLQ pain and CT showed diverticulosis. Patient denies any new symptoms since being discharged from the hospital. Patient denies new vomiting, no diarrhea, no fever. Patient remained stable throughout ED course. Patient informed to see her primary care doctor for urgent follow up. - Lab Interpretations Lab Results: Lab Results 12/31/17 08:27: POC Glucose (mg/dL) 314 H - Scribe Statement The provider has reviewed the documentation as recorded by the Scribe Francy Palmer All medical record entries made by the Scribe were at my direction and personally dictated by me. I have reviewed the chart and agree that the record accurately reflects my personal performance of the history, physical exam, medical decision making, and the department course for this patient. I have also personally directed, reviewed, and agree with the discharge instructions and disposition. Disposition/Present on Arrival - Present on Arrival Any Indicators Present on Arrival: No History of DVT/PE: No History of Uncontrolled Diabetes: No Urinary Catheter: No History of Decub. Ulcer: No History Surgical Site Infection Following: None - Disposition Have Diagnosis and Disposition been Completed?: Yes Diagnosis: Abdominal pain Disposition: HOME/ ROUTINE Disposition Time: 13:08 Patient Plan: Discharge Condition: STABLE Discharge Instructions (ExitCare): Acute Abdomen (Belly Pain) Additional Instructions: Return for any new or worsening symptoms. Follow up with your primary care doctor as soon as possible. KENIA COWAN, thank you for letting us take care of you today. Your provider was Dr. Angel Hope and you were treated for abdominal pain. The emergency medical care you received today was directed at your acute symptoms. If you were prescribed any medication, please fill it and take as directed. It may take several days for your symptoms to resolve. Return to the Emergency Department if your symptoms worsen, do not improve, or if you have any other problems. Please contact your doctor or call one of the physicians/clinics you have been referred to that are listed on the Patient Visit Information form that is included in your discharge packet. Bring any paperwork you were given at discharge with you along with any medications you are taking to your follow up visit. Our treatment cannot replace ongoing medical care by a primary care provider outside of the emergency department. Thank you for allowing the [facility] team to be part of your care today. If you had an X-Ray or CT scan: A Radiologist will review the ED reading if any change in treatment is needed we will contact you. If you had a blood, urine, or wound culture: It will take several days for the results, if any change in treatment is needed we will contact you. If you had an STI test: It will take 48 hours for the results. Please call after 1 week if you have not heard back. Forms: [employer] ([place])
[2017-12-31 10:46] LABS: BASO # 0.02 K/mm3 (0.0-2.0); BASO % 0.2 % (0.0-3.0); EOS % 0.1 % (1.5-5.0); GRAN # 6.6 (1.4-6.5); GRAN % 81.7 % (50.0-68.0); HEMOGLOBIN 12.1 g/dL (12.0-16.0); LYMPH # 0.7 (1.2-3.4); MEAN CORPUSCULAR HEMOGLOBIN 30.9 pg (25.0-35.0); MEAN CORPUSCULAR HGB CONC 34.7 g/dl (31.0-37.0); MEAN PLATELET VOLUME 8.9 fl (7.0-11.0); MONO # 0.7 (0.1-0.6); RBC 3.92 10^6/uL (3.5-6.1); RED CELL DISTRIBUTION WIDTH 13.1 % (11.5-14.5); WHITE BLOOD COUNT 8.1 10^3/ul (4.5-11.0)
[2017-12-31 10:47] LABS: URINE BILIRUBIN NEGATIVE (NEGATIVE); URINE BLOOD NEGATIVE (NEGATIVE); URINE GLUCOSE (UA) >=1000 mg/dL (NEGATIVE); URINE LEUKOCYTE ESTERASE NEGATIVE Leu/uL (NEGATIVE); URINE PROTEIN NEGATIVE mg/dL (<30 mg/dL); URINE UROBILINOGEN 0.2 E.U./dL (<1 E.U./dL)
[2017-12-31 10:49] LABS: URINE APPEARANCE CLEAR (CLEAR); URINE COLOR YELLOW (YELLOW)
[2017-12-31 11:04] LABS: BLOOD UREA NITROGEN 20 mg/dL (7-21); CALCIUM 9.2 mg/dL (8.4-10.5); GFR NON-AFRICAN AMERICAN > 60
[2017-12-31 14:00] VITALS: BP 150/90; TEMP 98
[2017-12-31 14:20] VITALS: PULSE 86; O2SAT 97
== END 2017-12-31 14:01 | disposition home or self-care (01) ==
LOC: ED 08:06
DX: R10.9 Unspecified abdominal pain (principal); I10 Essential (primary) hypertension; E11.9 Type 2 diabetes mellitus without complications; E78.5 Hyperlipidemia, unspecified; Z85.3 Personal history of malignant neoplasm of breast; Z95.1 Presence of aortocoronary bypass graft

== ENCOUNTER 2018-01-07 08:24 | Observation (INO) | payer MEDICARE, BC ==
[2018-01-07 08:27] VITALS: BMI 22.1
[2018-01-07] MEDS ORDERED: Sodium Chloride 0.9% 1,000 ML IV STA ×2 (08:42→10:27)
[2018-01-07] MEDS ORDERED: Insulin Regular 1 UNITS/0.01 ML ML SC ONE (08:44)
[2018-01-07 09:11] LABS: BASO # 0.02 K/mm3 (0.0-2.0); BASO % 0.3 % (0.0-3.0); EOS % 0.7 % (1.5-5.0); GRAN # 4.91 (1.4-6.5); HEMOGLOBIN 12.3 g/dL (12.0-16.0); LYMPH # 0.8 (1.2-3.4); LYMPH % 12.6 % (22.0-35.0); MEAN CORPUSCULAR HEMOGLOBIN 31.5 pg (25.0-35.0); MEAN PLATELET VOLUME 8.7 fl (7.0-11.0); MONO # 0.4 (0.1-0.6); MONO % 6.4 % (1.0-6.0); RBC 3.9 10^6/uL (3.5-6.1); RED CELL DISTRIBUTION WIDTH 13.5 % (11.5-14.5); WHITE BLOOD COUNT 6.1 10^3/ul (4.5-11.0)
[2018-01-07 09:13] LABS: VENOUS BLOOD GAS BASE EXCESS 1.5 mmol/L (0.0-2.0); VENOUS BLOOD GAS PO2 31 mm/Hg (30-55); VENOUS BLOOD PH 7.36 (7.32-7.43)
[2018-01-07 09:24] LABS: ALB/GLOB RATIO 1.4 (1.1-1.8); ALBUMIN 4.1 g/dL (3.0-4.8); ALT/SGPT 36 U/L (7-56); AST/SGOT 35 U/L (14-36); BLOOD UREA NITROGEN 13 mg/dL (7-21); CALCIUM 9.1 mg/dL (8.4-10.5); GFR NON-AFRICAN AMERICAN > 60
--- NOTE | 2018-01-07 09:32 | ED PDOC ---
Arrival/HPI - General Chief Complaint: High Blood Sugar Time Seen by Provider: 01/07/18 08:42 Historian: Patient - History of Present Illness Narrative History of Present Illness (Text): 82 y/o F w/ h/o htn/hld/iddm/breast cancer/triple bypass surgery presenting to the ED with complaint of hyperglycemia. She reports measuring her blood sugars this morning prior to self-administering insulin and noted an elevated blood glucose levels "above 300." Patient denies any changes in medication, recent illness or exposure to sick contacts. She denies any chest pain,shortness of breath, abdominal pain, back pain, diarrhea, constipation, dysuria, hematuria, tingling, weakness, or any other complaints. PMD: Dr. Barney Time/Duration: Prior to Arrival (Patient notes elevated blood glucose levels thi s morning "above 300") Symptom Onset: Sudden Symptom Course: Unchanged Activities at Onset: Rest Context: Home Past Medical History - Provider Review Nursing Documentation Reviewed: Yes - Travel History Have you recently traveled outside [place] w/in the past 3 mons?: No - Infectious Disease Hx of Infectious Diseases: None - Cardiac Hx Cardiac Disorders: Yes Other/Comment: triple bypass - Pulmonary Hx Respiratory Disorders: No - Neurological Hx Neurological Disorder: No - HEENT Hx HEENT Disorder: No - Renal Hx Renal Disorder: No - Endocrine/Metabolic Hx Endocrine Disorders: Yes Hx Diabetes Mellitus Type 2: Yes - Hematological/Oncological Hx Blood Disorders: No - Integumentary Hx Dermatological Disorder: No - Musculoskeletal/Rheumatological Hx Musculoskeletal Disorders: No - Gastrointestinal Hx Gastrointestinal Disorders: No - Genitourinary/Gynecological Hx Genitourinary Disorders: No - Psychiatric Hx Psychophysiologic Disorder: No Hx Substance Use: No - Surgical History Hx Open Heart Surgery: Yes (CABG x2) Other/Comment: breast Ca R lumphectomy - Anesthesia Hx Anesthesia Reactions: No Hx Malignant Hyperthermia: No - Suicidal Assessment Feels Threatened In Home Enviroment: No Family/Social History - Physician Review Nursing Documentation Reviewed: Yes Family/Social History: No Known Family HX Smoking Status: Never Smoked Hx Alcohol Use: No Hx Substance Use: No Allergies/Home Meds Allergies/Adverse Reactions: Allergies No Known Allergies Allergy (Verified 01/07/18 12:57) Review of Systems - Physician Review All systems were reviewed & negative as marked: Yes - Review of Systems Cardiovascular: Normal. absent: Chest Pain Neurological: Normal, Other (patient denies any tingling/weakness) Physical Exam Vital Signs Reviewed: Yes Vital Signs Temp Pulse Resp BP Pulse Ox 01/07/18 08:33 98.1 F 82 19 156/60 H 99 Temperature: Afebrile Blood Pressure: Hypertensive (at 156/60) Pulse: Regular Respiratory Rate: Normal Appearance: Positive for: Well-Appearing, Non-Toxic Pain Distress: None Mental Status: Positive for: Alert and Oriented X 3 Finger Stick Blood Glucose: 298 - Systems Exam Head: Present: Atraumatic, Normocephalic Pupils: Present: PERRL Extroacular Muscles: Present: EOMI Conjunctiva: Present: Normal Mouth: Present: Dry. No: Moist Mucous Membranes Neck: Present: Normal Range of Motion Respiratory/Chest: Present: Clear to Auscultation, Good Air Exchange, Other (Healing sternotomy scar noted of chest wall ). No: Respiratory Distress, Accessory Muscle Use Cardiovascular: Present: Regular Rate and Rhythm, Normal S1, S2. No: Murmurs, Tachycardic Abdomen: No: Tenderness, Distention, Peritoneal Signs Back: Present: Normal Inspection Upper Extremity: Present: Normal Inspection. No: Cyanosis, Edema Lower Extremity: Present: Normal Inspection, Neurovascularly Intact. No: Edema Neurological: Present: GCS=15, CN II-XII Intact, Speech Normal Skin: Present: Warm, Dry, Normal Color. No: Rashes Psychiatric: Present: Alert, Oriented x 3, Normal Insight, Normal Concentration Medical Decision Making ED Course and Treatment: 01/07/18 08:35 Impression: 82 year old female presents to the emergency department after noticing elevated blood glucose levels "above 300." Differential Diagnosis included but are not limited to: DKA Hyperosmolar Hyperglycemic State Plan: -- Labs --EKG --CXR -- IV fluids -- HumuLIN R -- General House Worker -- Urinalysis -- Reassess and disposition Prior Visits: Notes and results from previous visits were reviewed. Patient was last seen in the emergency department on 12/31/17 for who was brought in by EMS to the Emergency department with cc of left sided abdominal pain. Patient was discharged home in stable condition. Progress Notes: 01/07/18 10:05 Sodium noted to be 126. Potassium 4.1. Will recheck finger stick glucose. 01/07/18 10:[address] Atkinson who is aware of and agrees with plan to accept patient for admission. - Lab Interpretations Lab Results: 01/07/18 09:00 01/07/18 09:00 Lab Results 01/07/18 09:00: Sodium 126 L, Chloride 91 L, Potassium 4.1, Carbon Dioxide 25, Anion Gap 14, BUN 13, Creatinine 0.7, Est GFR ( Amer) > 60, Est GFR (Non- Af Amer) > 60, Random Glucose 293 H, Calcium 9.1, Magnesium 1.8, Total Bilirubin 0.8, AST 35, ALT 36, Alkaline Phosphatase 59, Total Protein 7.0, Albumin 4.1, Globulin 2.9, Albumin/Globulin Ratio 1.4 01/07/18 09:00: pO2 31, VBG pH 7.36, VBG pCO2 49.0, VBG HCO3 27.7, VBG Total CO2 29.2 H, VBG O2 Sat (Calc) 65.8 H, VBG Base Excess 1.5, VBG Potassium 4.1, Sodium 125.0 L, Chloride 94.0 L, Glucose 311 H, Lactate 1.3, FiO2 21.0, Venous Blood Potassium 4.1 01/07/18 09:00: WBC 6.1 D, RBC 3.90, Hgb 12.3, Hct 35.1 L, MCV 90.0, MCH 31.5, MCHC 35.0, RDW 13.5, Plt Count 264, MPV 8.7, Gran % 80.0 H, Lymph % (Auto) 12.6 L, [place] % (Auto) 6.4 H, Eos % (Auto) 0.7 L, Baso % (Auto) 0.3, Gran # 4.91, Lymph # (Auto) 0.8 L, [place] # (Auto) 0.4, Eos # (Auto) 0.0, Baso # (Auto) 0.02 - Medication Orders Current Medication Orders: Sodium Chloride (Sodium Chloride 0.9%) 1,000 mls @ 999 mls/hr IV .Q1H1M STA Stop: 01/07/18 09:42 Last Admin: 01/07/18 09:01 Dose: 999 mls/hr eMAR Start Stop Document 01/07/18 09:01 OCS (Rec: 01/07/18 09:02 OCS [id number]) Intravenous Solution Start Date 01/07/18 Start Time 09:02 End Date 01/07/18 End time 10:03 Total Infusion Time 61 Discontinued Medications Insulin Human Regular (Humulin R) 4 units SC ONCE ONE Stop: 01/07/18 08:45 Last Admin: 01/07/18 09:03 Dose: 4 units MAR Blood Glucose Document 01/07/18 09:03 [facility]Rec[facility]/07/18 09[id number] Blood Glucose Finger Stick Blood Glucose (70-120) 298 Subcutaneous Administrations Document 01/07/18 09:03 OCS (Rec: 01/07/18 09:04 [facility] [id number]) Injection Site MAR Injection Site Left Arm Charges for Administration # of Subcutaneous Administrations 1 - Scribe Statement The provider has reviewed the documentation as recorded by the Leanaibherminia Palmer All medical record entries made by the Scribe were at my direction and personally dictated by me. I have reviewed the chart and agree that the record accurately reflects my personal performance of the history, physical exam, medical decision making, and the department course for this patient. I have also personally directed, reviewed, and agree with the discharge instructions and disposition. Disposition/Present on Arrival - Present on Arrival Any Indicators Present on Arrival: No History of DVT/PE: No History of Uncontrolled Diabetes: No Urinary Catheter: No History of Decub. Ulcer: No History Surgical Site Infection Following: None - Disposition Have Diagnosis and Disposition been Completed?: Yes Diagnosis: Hyperglycemia due to type 1 diabetes mellitus, Hyponatremia Disposition: HOSPITALIZED Disposition Time: 10:28 Patient Plan: Admission Condition: GOOD
[2018-01-07 09:43] LABS: PH,URINE 6.5 (4.7-8.0); URINE BILIRUBIN NEGATIVE (NEGATIVE); URINE BLOOD NEGATIVE (NEGATIVE); URINE GLUCOSE (UA) >=1000 mg/dL (NEGATIVE); URINE LEUKOCYTE ESTERASE NEGATIVE Leu/uL (NEGATIVE); URINE PROTEIN 30 mg/dL (<30 mg/dL); URINE UROBILINOGEN 0.2 E.U./dL (<1 E.U./dL)
[2018-01-07 09:49] LABS: URINE APPEARANCE CLEAR (CLEAR); URINE COLOR YELLOW (YELLOW)
[2018-01-07 09:59] LABS: URINE BACTERIA FEW (NEG); URINE EPITHELIAL CELLS 0 - 2 /hpf (0-5); URINE RBC NEGATIVE /hpf (0-2); URINE WBC 0 - 2 /hpf (0-6)
--- NOTE | 2018-01-07 11:45 | CP.PCM.HP ---
<GudinoNancy cortes - Last Filed: 01/08/18 12:32> History of Present Illness - History of Present Illness History of Present Illness: Mrs. Ceja is a 82 yr old female with PMH HTN, HLD, DM, Breast Cancer and CABGx2 (1982 and 1995) presents to [facility] ED d/t elevated sugars (over 300 at home) and vague LUQ abdominal pain. She otherwise denies DINH, dizziness, vision changes, CP, SOB, vomiting, stool changes, dysuria, and extremity pain numbness or tingiling. She believes her last colonoscopy was at age 72 and does not believe there were any abnormalities. PMH: HTN, HLD, DM, Breast Cancer and CABGx2 (1982 and 1995) PSH: breast cancer biopsies, CABG x2 Family Hx: denies All: nkda Social: denies x3 Home meds: ASA, lisinopril, insulin Lispro and Glargine, levothyroxine, simvastatin Present on Admission - Present on Admission Any Indicators Present on Admission: No Review of Systems - Review of Systems All systems: reviewed and no additional remarkable complaints except Review of Systems: as per HPI Past Patient History - Infectious Disease Hx of Infectious Diseases: None - Past Social History Smoking Status: Never Smoked - CARDIAC Hx Cardiac Disorders: Yes Other/Comment: triple bypass - PULMONARY Hx Respiratory Disorders: No - NEUROLOGICAL Hx Neurological Disorder: No - HEENT Hx HEENT Problems: No - RENAL Hx Chronic Kidney Disease: No - ENDOCRINE/METABOLIC Hx Endocrine Disorders: Yes Hx Diabetes Mellitus Type 2: Yes - HEMATOLOGICAL/ONCOLOGICAL Hx Blood Disorders: No - INTEGUMENTARY Hx Dermatological Problems: No - MUSCULOSKELETAL/RHEUMATOLOGICAL Hx Musculoskeletal Disorders: No - GASTROINTESTINAL Hx Gastrointestinal Disorders: No - GENITOURINARY/GYNECOLOGICAL Hx Genitourinary Disorders: No - PSYCHIATRIC Hx Psychophysiologic Disorder: No Hx Substance Use: No - SURGICAL HISTORY Hx Open Heart Surgery: Yes (CABG x2) Other/Comment: breast Ca R lumphectomy - ANESTHESIA Hx Anesthesia Reactions: No Hx Malignant Hyperthermia: No Meds Allergies/Adverse Reactions: Allergies Allergy/AdvReac Type Severity Reaction Status Date / Time No Known Allergies Allergy Verified 01/07/18 12:57 Physical Exam - Constitutional Appears: Well, Non-toxic, No Acute Distress - Head Exam Head Exam: ATRAUMATIC, NORMOCEPHALIC - Eye Exam Eye Exam: EOMI Pupil Exam: PERRL - ENT Exam ENT Exam: Mucous Membranes Dry - Respiratory Exam Respiratory Exam: Clear to Auscultation Bilateral, NORMAL BREATHING PATTERN - Cardiovascular Exam Cardiovascular Exam: REGULAR RHYTHM - GI/Abdominal Exam GI & Abdominal Exam: Soft. absent: Distended, Guarding, Rigid, Tenderness - Extremities Exam Extremities exam: Positive for: normal capillary refill, pedal pulses present. Negative for: calf tenderness, pedal edema, tenderness - Neurological Exam Neurological exam: Alert, CN II-XII Intact, Oriented x3 - Psychiatric Exam Psychiatric exam: Normal Affect, Normal Mood - Skin Skin Exam: Dry, Intact, Normal Color, Warm Results - Vital Signs Recent Vital Signs: Last Vital Signs Temp 98.1 F 01/07/18 11:33 Pulse 83 01/07/18 11:33 Resp 18 01/07/18 11:33 BP 147/75 01/07/18 11:33 Pulse Ox 96 01/07/18 11:33 - Labs Result Diagrams: 01/07/18 09:00 01/08/18 08:45 Labs: Laboratory Results - last 24 hr 01/07/18 01/07/18 01/07/18 08:28 09:00 09:00 WBC 6.1 D RBC 3.90 Hgb 12.3 Hct 35.1 L MCV 90.0 MCH 31.5 MCHC 35.0 RDW 13.5 Plt Count 264 MPV 8.7 Gran % 80.0 H Lymph % (Auto) 12.6 L [place] % (Auto) 6.4 H Eos % (Auto) 0.7 L Baso % (Auto) 0.3 Gran # 4.91 Lymph # (Auto) 0.8 L [place] # (Auto) 0.4 Eos # (Auto) 0.0 Baso # (Auto) 0.02 pO2 31 VBG pH 7.36 VBG pCO2 49.0 VBG HCO3 27.7 VBG Total CO2 29.2 H VBG O2 Sat (Calc) 65.8 H VBG Base Excess 1.5 VBG Potassium 4.1 Sodium 125.0 L Chloride 94.0 L Glucose 311 H Lactate 1.3 FiO2 21.0 Potassium Carbon Dioxide Anion Gap BUN Creatinine Est GFR ( Amer) Est GFR (Non-Af Amer) POC Glucose (mg/dL) 298 H Random Glucose Calcium Magnesium Total Bilirubin AST ALT Alkaline Phosphatase Total Protein Albumin Globulin Albumin/Globulin Ratio Venous Blood Potassium 4.1 Urine Color Urine Appearance Urine pH Ur Specific [place] Urine Protein Urine Glucose (UA) Urine Ketones Urine Blood Urine Nitrate Urine Bilirubin Urine Urobilinogen Ur Leukocyte Esterase Urine RBC Urine WBC Ur Epithelial Cells Urine Bacteria 01/07/18 01/07/18 09:00 09:30 WBC RBC Hgb Hct MCV MCH MCHC RDW Plt Count MPV Gran % Lymph % (Auto) [place] % (Auto) Eos % (Auto) Baso % (Auto) Gran # Lymph # (Auto) [place] # (Auto) Eos # (Auto) Baso # (Auto) pO2 VBG pH VBG pCO2 VBG HCO3 VBG Total CO2 VBG O2 Sat (Calc) VBG Base Excess VBG Potassium Sodium 126 L Chloride 91 L Glucose Lactate FiO2 Potassium 4.1 Carbon Dioxide 25 Anion Gap 14 BUN 13 Creatinine 0.7 Est GFR ( Amer) > 60 Est GFR (Non-Af Amer) > 60 POC Glucose (mg/dL) Random Glucose 293 H Calcium 9.1 Magnesium 1.8 Total Bilirubin 0.8 AST 35 ALT 36 Alkaline Phosphatase 59 Total Protein 7.0 Albumin 4.1 Globulin 2.9 Albumin/Globulin Ratio 1.4 Venous Blood Potassium Urine Color Yellow Urine Appearance Clear Urine pH 6.5 Ur Specific [place] 1.010 Urine Protein 30 H Urine Glucose (UA) >=1000 Urine Ketones Trace H Urine Blood Negative Urine Nitrate Negative Urine Bilirubin Negative Urine Urobilinogen 0.2 Ur Leukocyte Esterase Negative Urine RBC Negative Urine WBC 0 - 2 Ur Epithelial Cells 0 - 2 Urine Bacteria Few Assessment & Plan - Assessment and Plan (Free Text) Assessment: 82 yr old female with hyponatremia and hypoglycemia Plan: Hyponatremia: * fluid restriction to 1200 mL daily * check BMP in AM * will continue to monitor Hyperglycemia: * ISS high * glucose checks ACHS * maintain euglycemia * diabetic diet HTN: * c/w home lisinopril * vital signs Qshift HLD: * c/w home statin Patient seen and discussed with Dr. Jorge Gudino, PGY 1 - Date & Time Date: 01/07/18 Time: 11:10 <Saadia Patel - Last Filed: 01/09/18 15:11> Results - Vital Signs Recent Vital Signs: Last Vital Signs Temp 97.4 F L 01/09/18 08:21 Pulse 76 01/09/18 08:21 Resp 18 01/09/18 08:21 BP 174/72 H 01/09/18 09:43 Pulse Ox 98 01/09/18 08:21 - Labs Result Diagrams: 01/09/18 06:00 01/09/18 06:00 Labs: Laboratory Results - last 24 hr 01/08/18 01/08/18 01/09/18 16:23 21:15 01:59 WBC RBC Hgb Hct MCV MCH MCHC RDW Plt Count MPV Gran % Lymph % (Auto) [place] % (Auto) Eos % (Auto) Baso % (Auto) Gran # Lymph # (Auto) [place] # (Auto) Eos # (Auto) Baso # (Auto) Sodium Potassium Chloride Carbon Dioxide Anion Gap BUN Creatinine Est GFR ( Amer) Est GFR (Non-Af Amer) POC Glucose (mg/dL) 204 H 302 H 287 H Random Glucose Calcium Total Bilirubin AST ALT Alkaline Phosphatase Total Protein Albumin Globulin Albumin/Globulin Ratio 01/09/18 01/09/18 01/09/18 06:00 06:00 06:36 WBC 5.3 RBC 4.08 Hgb 12.7 Hct 36.2 MCV 88.7 MCH 31.1 MCHC 35.1 RDW 13.4 Plt Count 279 MPV 8.4 Gran % 63.2 Lymph % (Auto) 25.7 [place] % (Auto) 8.8 H Eos % (Auto) 1.7 Baso % (Auto) 0.6 Gran # 3.32 Lymph # (Auto) 1.4 [place] # (Auto) 0.5 Eos # (Auto) 0.1 Baso # (Auto) 0.03 Sodium 129 L Potassium 4.0 Chloride 96 L Carbon Dioxide 25 Anion Gap 12 BUN 10 Creatinine 0.5 L Est GFR ( Amer) > 60 Est GFR (Non-Af Amer) > 60 POC Glucose (mg/dL) 179 H Random Glucose 188 H Calcium 8.5 Total Bilirubin 0.7 AST 37 H ALT 30 Alkaline Phosphatase 62 Total Protein 6.7 Albumin 3.7 Globulin 3.0 Albumin/Globulin Ratio 1.3 01/09/18 01/09/18 11:11 13:47 WBC RBC Hgb Hct MCV MCH MCHC RDW Plt Count MPV Gran % Lymph % (Auto) [place] % (Auto) Eos % (Auto) Baso % (Auto) Gran # Lymph # (Auto) [place] # (Auto) Eos # (Auto) Baso # (Auto) Sodium Potassium Chloride Carbon Dioxide Anion Gap BUN Creatinine Est GFR ( Amer) Est GFR (Non-Af Amer) POC Glucose (mg/dL) 193 H 274 H Random Glucose Calcium Total Bilirubin AST ALT Alkaline Phosphatase Total Protein Albumin Globulin Albumin/Globulin Ratio Attending/Attestation - Attestation I have personally seen and examined this patient.: Yes I have fully participated in the care of the patient.: Yes I have reviewed all pertinent clinical information: Yes Notes (Text): 01/09/18 15:09 Patient was seen and examined with medical charge entry specialist. 82 yr old female with PMH HTN, HLD, DM, Breast Cancer and CABGx2 (1982 and 1995), was recently treated with antibiotics for possible diverticulitis presents to [facility] ED for elevated sugars (over 300 at home) and vague LUQ abdominal pain.Patient was also found to have mild hyponatremia due to decrease oral intake.Patient abdominal examination is benign.There is abdominal tenderness.She is tolerating food.There is vomiting or diarrhea. We will monitor blood sugars, and adjust medication as needed. Hyponatremia is mild, patient is asymptomatic, SP IV fluid 1 L in ER, we will monitor. Management plan was discussed in detail with patient. Education was provided.
[2018-01-07] MEDS ORDERED: Dextrose 50% SYRINGE Inj (50 ml) IV PRN (12:43)
[2018-01-07] MEDS ORDERED: Pneumococcal 23-Valent Vaccine IM ONE (13:47)
[2018-01-07] MEDS ORDERED: Influenza Vaccine 60 mcg/0.5 mL SYR (4YR UP) IM ONE (13:47)
[2018-01-07] MEDS: Insulin Reg-HIGH-Coverage SC SCH ×2 (17:06→21:50)
[2018-01-08] MEDS: Insulin Reg-HIGH-Coverage SC SCH ×5 (04:51→21:33)
[2018-01-08 09:05] LABS: BLOOD UREA NITROGEN 12 mg/dL (7-21); CALCIUM 8.7 mg/dL (8.4-10.5); GFR NON-AFRICAN AMERICAN > 60
[2018-01-08] MEDS ORDERED: Sodium Chloride 0.9% 1,000 ML IV SCH (12:00)
[2018-01-08] MEDS: Insulin Lispro 1 UNITS/0.01 ML SC SCH ×2 (13:27)
--- NOTE | 2018-01-08 14:16 | CP.PCM.PN ---
<Edison Morrell - Last Filed: 01/08/18 22:37> Subjective - Date & Time of Evaluation Date of Evaluation: 01/08/18 Time of Evaluation: 07:00 - Subjective Subjective: Pt seen and examined this morning at bedside. Pt reports vague abdominal pain Objective - Vital Signs/Intake and Output Vital Signs (last 24 hours): Temp Pulse Resp BP Pulse Ox 97.2 F L 84 19 145/71 99 01/08/18 06:00 01/08/18 06:00 01/08/18 06:00 01/08/18 06:00 01/08/18 06:00 Intake and Output: 01/08/18 01/08/18 06:59 18:59 Intake Total 600 Balance 600 - Medications Medications: Current Medications Aspirin (Aspirin Chewable) 81 mg PO DAILY [facility] Last Admin: 01/08/18 09:13 Dose: 81 mg Atorvastatin Calcium (Lipitor) 20 mg PO DIN [facility] Last Admin: 01/07/18 17:06 Dose: 20 mg Dextrose (Dextrose 50% Inj) 0 ml IV STAT PRN; Protocol PRN Reason: Hypoglycemia Protocol Heparin Sodium (Porcine) (Heparin) 5,000 units SC Q8 [facility]; Protocol Last Admin: 01/08/18 13:32 Dose: 5,000 units Dextrose (Dextrose 5% In Water 1000 Ml) 1,000 mls @ 0 mls/hr IV .Q0M PRN; Protocol PRN Reason: Hypoglycemia Protocol Sodium Chloride (Sodium Chloride 0.9%) 1,000 mls @ 80 mls/hr IV .[id number] [facility] Last Admin: 01/08/18 12:19 Dose: 80 mls/hr Insulin Detemir (Levemir) 12 unit SC HS [facility] Insulin Human Lispro (Humalog) 5 units SC ACB [facility] Last Admin: 01/08/18 13:27 Dose: Not Given Insulin Human Lispro (Humalog) 4 units SC ACL [facility] Last Admin: 01/08/18 13:27 Dose: Not Given Insulin Human Lispro (Humalog) 6 units SC ACD [facility] Insulin Human Regular (Humulin R High) 0 units SC ACHS [facility]; Protocol Last Admin: 01/08/18 11:16 Dose: 2 unit Lisinopril (Zestril) 5 mg PO DAILY [facility] Last Admin: 01/08/18 09:13 Dose: 5 mg Pantoprazole Sodium (Protonix Inj) 40 mg IVP DAILY [facility] Last Admin: 01/08/18 13:32 Dose: 40 mg - Labs Labs: 01/07/18 09:00 01/08/18 08:45 - Constitutional Appears: Well - Head Exam Head Exam: ATRAUMATIC, NORMAL INSPECTION, NORMOCEPHALIC - ENT Exam ENT Exam: Mucous Membranes Moist - Neck Exam Neck Exam: Full ROM - Respiratory Exam Respiratory Exam: Clear to Ausculation Bilateral, NORMAL BREATHING PATTERN. absent: Wheezes, Respiratory Distress - Cardiovascular Exam Cardiovascular Exam: RRR, +S1, +S2 - GI/Abdominal Exam GI & Abdominal Exam: Soft, Normal Bowel Sounds - Extremities Exam Extremities Exam: Full ROM, Pedal Edema - Neurological Exam Neurological Exam: Alert, Awake, Oriented x3 - Psychiatric Exam Psychiatric exam: Normal Affect, Normal Mood - Skin Skin Exam: Dry, Normal Color, Warm Assessment and Plan - Assessment and Plan (Free Text) Assessment: Pt is 82 yo F with PMH HTN, HLD, IDDM (Dx in her 20s), Breast Cancer and CABGx2 (1982 and 1995) presents to [facility] [place] after elevated sugars (over 300 at home) and vague LUQ abdominal pain. On admission, patient noted to have hyponatremia (Na 129). Pt was started on ISS and received fluids in the ED. She missed her dose of insulin last night. Continues with hyponatremia today (Na 125) Plan: Hyponatremia: - Na on admission was 126 --> 125 today after fluid restriction - urine electrolytes ordered - follow up urine osms - fluids restarted NS 80ml/hr - continue to monitor Abdominal pain - pt continues to report vague abdominal pain - CT abdomen and pelvis without contrast Hyperglycemia: - restart home lantus 12 U at bedtime, Humalog 5 with breakfast, 4 with lunch, 6 with dinner - ISS high - glucose checks ACHS - maintain euglycemia - diabetic diet HTN: - continue home lisinopril - continue to monitor blood pressure HLD: - continue home statin and ASA PPX - heparin - protonix Pt seen and examined. Assessment and plan discussed with Dr. Jorge Morrell PGY1 <Saadia Patel - Last Filed: 01/09/18 15:08> Objective - Vital Signs/Intake and Output Vital Signs (last 24 hours): Temp Pulse Resp BP Pulse Ox 97.4 F L 76 18 174/72 H 98 01/09/18 08:21 01/09/18 08:21 01/09/18 08:21 01/09/18 09:43 01/09/18 08:21 Intake and Output: 01/09/18 01/09/18 06:59 18:59 Intake Total 540 Balance 540 - Labs Labs: 01/09/18 06:00 01/09/18 06:00 Attending/Attestation - Attestation I have personally seen and examined this patient.: Yes I have fully participated in the care of the patient.: Yes I have reviewed all pertinent clinical information, including history, physical exam and plan: Yes Notes (Text): 01/09/18 15:08 Medical record note made by the resident after discussion with my direction and input after the patient was personally seen and examined by me. I have reviewed the chart and agree that the record accurately reflects by personal performance of the history, physical exam, data review, and medical decision-making, in the course for the patient. I have also personally directed the plan of care
--- NOTE | 2018-01-08 14:49 | CT ---
Date of service: 01/08/2018 PROCEDURE: CT Abdomen and Pelvis without intravenous contrast HISTORY: abdominal pain, unkown etiology COMPARISON: None. TECHNIQUE: Without contrast.. Contrast dose: Radiation dose: Total exam DLP = 314.52 mGy-cm. This CT exam was performed using one or more of the following dose reduction techniques: Automated exposure control, adjustment of the mA and/or kV according to patient size, and/or use of iterative reconstruction technique. FINDINGS: LOWER THORAX: Unremarkable. LIVER: Unremarkable. No gross lesion or ductal dilatation. GALLBLADDER AND BILE DUCTS: Unremarkable. PANCREAS: Unremarkable. No gross lesion or ductal dilatation. SPLEEN: Unremarkable. ADRENALS: Unremarkable. No mass. KIDNEYS AND URETERS: Unremarkable. No hydronephrosis. No solid mass. VASCULATURE: There is extensive aortic calcification but no evidence of aneurysm. BOWEL: Unremarkable. No obstruction. No gross mural thickening. APPENDIX: Unremarkable. Normal appendix. PERITONEUM: Unremarkable. No free fluid. No free air. LYMPH NODES: Unremarkable. No enlarged lymph nodes. BLADDER: Unremarkable. REPRODUCTIVE: Calcified fibroids BONES: Multilevel disc degeneration OTHER FINDINGS: None. IMPRESSION: No acute intra-abdominal findings
[2018-01-08 14:54] LABS: OSMOLALITY,URINE 369 mosm/kg (300-1000)
[2018-01-08] MEDS ORDERED: Insulin Lispro 1 UNITS/0.01 ML SC SCH (16:30)
[2018-01-08] MEDS ORDERED: Insulin Detemir 100 units/ml Vial (Levemir) SC SCH (22:00)
[2018-01-09 06:47] LABS: BASO # 0.03 K/mm3 (0.0-2.0); BASO % 0.6 % (0.0-3.0); EOS # 0.1 (0.0-0.7); EOS % 1.7 % (1.5-5.0); GRAN # 3.32 (1.4-6.5); GRAN % 63.2 % (50.0-68.0); HEMOGLOBIN 12.7 g/dL (12.0-16.0); LYMPH # 1.4 (1.2-3.4); LYMPH % 25.7 % (22.0-35.0); MEAN CELL VOLUME 88.7 fl (80.0-105.0); MEAN CORPUSCULAR HEMOGLOBIN 31.1 pg (25.0-35.0); MEAN CORPUSCULAR HGB CONC 35.1 g/dl (31.0-37.0); MEAN PLATELET VOLUME 8.4 fl (7.0-11.0); MONO # 0.5 (0.1-0.6); MONO % 8.8 % (1.0-6.0); RBC 4.08 10^6/uL (3.5-6.1); RED CELL DISTRIBUTION WIDTH 13.4 % (11.5-14.5); WHITE BLOOD COUNT 5.3 10^3/ul (4.5-11.0)
[2018-01-09 07:01] LABS: ALB/GLOB RATIO 1.3 (1.1-1.8); ALBUMIN 3.7 g/dL (3.0-4.8); ALT/SGPT 30 U/L (7-56); AST/SGOT 37 U/L (14-36); BLOOD UREA NITROGEN 10 mg/dL (7-21); CALCIUM 8.5 mg/dL (8.4-10.5); GFR NON-AFRICAN AMERICAN > 60
[2018-01-09] MEDS: Insulin Lispro 1 UNITS/0.01 ML SC SCH ×2 (07:54→12:53)
[2018-01-09] MEDS: Insulin Reg-HIGH-Coverage SC SCH ×2 (07:55→12:52)
[2018-01-09 08:24] VITALS: PULSE 76; RESP 18; TEMP 97.4; O2SAT 98
[2018-01-09 09:48] VITALS: BP 174/72
--- NOTE | 2018-01-09 13:21 | CP.PCM.DIS ---
<Micah Shell - Last Filed: 01/09/18 13:14> Provider - Provider Date of Admission: 01/07/18 10:30 Attending physician: Saadia Patel MD Time Spent in preparation of Discharge (in minutes): 45 Hospital Course - Lab Results Lab Results: Most Recent Lab Values WBC 5.3 10^3/ul (4.5-11.0) 01/09/18 06:00 RBC 4.08 10^6/uL (3.5-6.1) 01/09/18 06:00 Hgb 12.7 g/dL (12.0-16.0) 01/09/18 06:00 Hct 36.2 % (36.0-48.0) 01/09/18 06:00 MCV 88.7 fl (80.0-105.0) 01/09/18 06:00 MCH 31.1 pg (25.0-35.0) 01/09/18 06:00 MCHC 35.1 g/dl (31.0-37.0) 01/09/18 06:00 RDW 13.4 % (11.5-14.5) 01/09/18 06:00 Plt Count 279 10^3/uL (120.0-450.0) 01/09/18 06:00 MPV 8.4 fl (7.0-11.0) 01/09/18 06:00 Gran % 63.2 % (50.0-68.0) 01/09/18 06:00 Lymph % (Auto) 25.7 % (22.0-35.0) 01/09/18 06:00 Tift % (Auto) 8.8 % (1.0-6.0) H 01/09/18 06:00 Eos % (Auto) 1.7 % (1.5-5.0) 01/09/18 06:00 Baso % (Auto) 0.6 % (0.0-3.0) 01/09/18 06:00 Gran # 3.32 (1.4-6.5) 01/09/18 06:00 Lymph # (Auto) 1.4 (1.2-3.4) 01/09/18 06:00 Tift # (Auto) 0.5 (0.1-0.6) 01/09/18 06:00 Eos # (Auto) 0.1 (0.0-0.7) 01/09/18 06:00 Baso # (Auto) 0.03 K/mm3 (0.0-2.0) 01/09/18 06:00 pO2 31 mm/Hg (30-55) 01/07/18 09:00 VBG pH 7.36 (7.32-7.43) 01/07/18 09:00 VBG pCO2 49.0 (40-60) 01/07/18 09:00 VBG HCO3 27.7 mmol/l (21-28) 01/07/18 09:00 VBG Total CO2 29.2 mmol.L (22-28) H 01/07/18 09:00 VBG O2 Sat (Calc) 65.8 % (40-65) H 01/07/18 09:00 VBG Base Excess 1.5 mmol/L (0.0-2.0) 01/07/18 09:00 VBG Potassium 4.1 mmol/L (3.6-5.2) 01/07/18 09:00 Sodium 125.0 mmol/L (132-148) L 01/07/18 09:00 Chloride 94.0 mmol/L (98-107) L 01/07/18 09:00 Glucose 311 mg/dl (65-105) H 01/07/18 09:00 Lactate 1.3 mmol/L (0.7-2.1) 01/07/18 09:00 FiO2 21.0 % 01/07/18 09:00 Sodium 129 mmol/L (132-148) L 01/09/18 06:00 Potassium 4.0 mmol/L (3.6-5.0) 01/09/18 06:00 Chloride 96 mmol/L (98-107) L 01/09/18 06:00 Carbon Dioxide 25 mmol/L (21-33) 01/09/18 06:00 Anion Gap 12 (10-20) 01/09/18 06:00 BUN 10 mg/dL (7-21) 01/09/18 06:00 Creatinine 0.5 mg/dl (0.7-1.2) L 01/09/18 06:00 Est GFR ( Amer) > 60 01/09/18 06:00 Est GFR (Non-Af Amer) > 60 01/09/18 06:00 POC Glucose (mg/dL) 179 mg/dL (65-110) H 01/09/18 06:36 Random Glucose 188 mg/dL (70-110) H 01/09/18 06:00 Serum Osmolality 270 mosm/kg (272-300) L 01/08/18 11:00 Calcium 8.5 mg/dL (8.4-10.5) 01/09/18 06:00 Magnesium 1.8 mg/dL (1.7-2.2) 01/07/18 09:00 Total Bilirubin 0.7 mg/dL (0.2-1.3) 01/09/18 06:00 AST 37 U/L (14-36) H 01/09/18 06:00 ALT 30 U/L (7-56) 01/09/18 06:00 Alkaline Phosphatase 62 U/L (38-126) 01/09/18 06:00 Total Protein 6.7 g/dL (5.8-8.3) 01/09/18 06:00 Albumin 3.7 g/dL (3.0-4.8) 01/09/18 06:00 Globulin 3.0 gm/dL 01/09/18 06:00 Albumin/Globulin Ratio 1.3 (1.1-1.8) 01/09/18 06:00 Venous Blood Potassium 4.1 mmol/L (3.6-5.2) 01/07/18 09:00 Urine Color Yellow (YELLOW) 01/07/18 09:30 Urine Appearance Clear (CLEAR) 01/07/18 09:30 Urine pH 6.5 (4.7-8.0) 01/07/18 09:30 Ur Specific [place] 1.010 (1.005-1.035) 01/07/18 09:30 Urine Protein 30 mg/dL (<30 mg/dL) H 01/07/18 09:30 Urine Glucose (UA) >=1000 mg/dL (NEGATIVE) 01/07/18 09:30 Urine Ketones Trace mg/dL (NEGATIVE) H 01/07/18 09:30 Urine Blood Negative (NEGATIVE) 01/07/18 09:30 Urine Nitrate Negative (NEGATIVE) 01/07/18 09:30 Urine Bilirubin Negative (NEGATIVE) 01/07/18 09:30 Urine Urobilinogen 0.2 E.U./dL (<1 E.U./dL) 01/07/18 09:30 Ur Leukocyte Esterase Negative Aries/uL (NEGATIVE) 01/07/18 09:30 Urine RBC Negative /hpf (0-2) 01/07/18 09:30 Urine WBC 0 - 2 /hpf (0-6) 01/07/18 09:30 Ur Epithelial Cells 0 - 2 /hpf (0-5) 01/07/18 09:30 Urine Bacteria Few (NEG) 01/07/18 09:30 Urine Osmolality 369 mosm/kg (300-1000) 01/08/18 14:00 Ur Random Sodium 79 meq/L 01/08/18 14:00 - Hospital Course Hospital Course: Upon Admission Patient is a 82 yr old female with PMH HTN, HLD, DM, Breast Cancer and CABGx2 ( and 1995) presents to [facility] d/t elevated sugars (over 300 at home) and vague LUQ abdominal pain. She otherwise denies DINH, dizziness, vision changes, CP, SOB, vomiting, stool changes, dysuria, and extremity pain numbness or tingiling. She believes her last colonoscopy was at age 72 and does not believe there were any abnormalities. Hospital Course Patient is a 82 year old female who was admitted for hyperglycemia and hyponatremia. Patient was started on fluids and given home Insulin medications. Patient CMP was trended and glucose was checked periodically. Sugars were ranging from 150-250 with insulin regimen in hospital. Patient complained of abdominal pain but was very vague and no other symptoms. CT abd/pelvis was ordered which showed no acute abnormalities. Patient was educated on how to manage hypergylcemia and to drink water. Patient's daughter was at bedside. Patient was educated on how to administer insulin based on blood sugar readings and to continue home lantus. Sugars were better controlled and hyponatremia started to resolve. Discharge Plan Patient is stable for discharge to home as per Dr. Patel. Patient should resume all home medications with insulin dose premeal dependent on blood sugar readings. Patient was given chart of how much insulin she should administer based on readings. Patient understands the plan as above and agrees. Patient will follow up with her primary medical doctor within a week with diary of blood sugar readings. Disclaimer: Written above is a synopsis of patient's current hospital admission. For full report refer to EMR. Discharge Exam - Head Exam Head Exam: ATRAUMATIC, NORMAL INSPECTION, NORMOCEPHALIC - Eye Exam Eye Exam: EOMI, Normal appearance. absent: Nystagmus, Scleral icterus - Respiratory Exam Respiratory Exam: NORMAL BREATHING PATTERN. absent: Rales, Rhonchi, Wheezes, Respiratory Distress - Cardiovascular Exam Cardiovascular Exam: REGULAR RHYTHM, +S1, +S2. absent: Bradycardia, Tachycardia - GI/Abdominal Exam GI & Abdominal Exam: Normal Bowel Sounds, Soft. absent: Diminished Bowel Sounds, Distended, Firm, Guarding, Hernia, Tenderness - Extremities Exam Extremities exam: normal inspection - Neurological Exam Neurological exam: Alert, Oriented x3 - Psychiatric Exam Psychiatric exam: Normal Affect, Normal Mood - Skin Skin Exam: Intact, Normal Color Discharge Plan - Discharge Medications Prescriptions: Insulin Glargine, Recombina [Lantus] 12 unit SC HS 15 Days ml RX: Insulin Lispro [humALOG] See Protocol SC AC 15 Days ml RX: Omeprazole 20 mg PO DAILY #7 tablet.dr - Follow Up Plan Condition: GOOD Disposition: HOME/ ROUTINE Instructions: Uterine Fibroids, Diabetes Exchange Diet, DASH Diet, Degenerative Disc Disease, High Blood Pressure (DC), Using Insulin, Insulin Glargine, Insulin Lispro, Diabetes in Older Adults Additional Instructions: - Follow up with primary doctor within 3-5 days - Measure blood sugar before meals and before bed - Lantus 12 units before bed - Humalog is taken before meals based on blood sugar. Sliding Scale instructions - Blood sugar < 150 then NO insulin - Blood sugar 151-199 then take 1 unit - Blood sugar 200-249 then take 2 unit - Blood sugar 250-299 then take 3 unit - Blood sugar 300-349 then take 4 unit - Blood sugar 350-400 then take 5 unit - Blood sugar > 400 then take 7 unit - Resume other home medications as prescribed - Proceed to ED if symptoms return <Saadia Patel - Last Filed: 01/09/18 15:08> Provider - Provider Date of Admission: 01/07/18 10:30 Attending physician: Saadia Patel MD Hospital Course - Lab Results Lab Results: Most Recent Lab Values WBC 5.3 10^3/ul (4.5-11.0) 01/09/18 06:00 RBC 4.08 10^6/uL (3.5-6.1) 01/09/18 06:00 Hgb 12.7 g/dL (12.0-16.0) 01/09/18 06:00 Hct 36.2 % (36.0-48.0) 01/09/18 06:00 MCV 88.7 fl (80.0-105.0) 01/09/18 06:00 MCH 31.1 pg (25.0-35.0) 01/09/18 06:00 MCHC 35.1 g/dl (31.0-37.0) 01/09/18 06:00 RDW 13.4 % (11.5-14.5) 01/09/18 06:00 Plt Count 279 10^3/uL (120.0-450.0) 01/09/18 06:00 MPV 8.4 fl (7.0-11.0) 01/09/18 06:00 Gran % 63.2 % (50.0-68.0) 01/09/18 06:00 Lymph % (Auto) 25.7 % (22.0-35.0) 01/09/18 06:00 Tift % (Auto) 8.8 % (1.0-6.0) H 01/09/18 06:00 Eos % (Auto) 1.7 % (1.5-5.0) 01/09/18 06:00 Baso % (Auto) 0.6 % (0.0-3.0) 01/09/18 06:00 Gran # 3.32 (1.4-6.5) 01/09/18 06:00 Lymph # (Auto) 1.4 (1.2-3.4) 01/09/18 06:00 Tift # (Auto) 0.5 (0.1-0.6) 01/09/18 06:00 Eos # (Auto) 0.1 (0.0-0.7) 01/09/18 06:00 Baso # (Auto) 0.03 K/mm3 (0.0-2.0) 01/09/18 06:00 pO2 31 mm/Hg (30-55) 01/07/18 09:00 VBG pH 7.36 (7.32-7.43) 01/07/18 09:00 VBG pCO2 49.0 (40-60) 01/07/18 09:00 VBG HCO3 27.7 mmol/l (21-28) 01/07/18 09:00 VBG Total CO2 29.2 mmol.L (22-28) H 01/07/18 09:00 VBG O2 Sat (Calc) 65.8 % (40-65) H 01/07/18 09:00 VBG Base Excess 1.5 mmol/L (0.0-2.0) 01/07/18 09:00 VBG Potassium 4.1 mmol/L (3.6-5.2) 01/07/18 09:00 Sodium 125.0 mmol/L (132-148) L 01/07/18 09:00 Chloride 94.0 mmol/L (98-107) L 01/07/18 09:00 Glucose 311 mg/dl (65-105) H 01/07/18 09:00 Lactate 1.3 mmol/L (0.7-2.1) 01/07/18 09:00 FiO2 21.0 % 01/07/18 09:00 Sodium 129 mmol/L (132-148) L 01/09/18 06:00 Potassium 4.0 mmol/L (3.6-5.0) 01/09/18 06:00 Chloride 96 mmol/L (98-107) L 01/09/18 06:00 Carbon Dioxide 25 mmol/L (21-33) 01/09/18 06:00 Anion Gap 12 (10-20) 01/09/18 06:00 BUN 10 mg/dL (7-21) 01/09/18 06:00 Creatinine 0.5 mg/dl (0.7-1.2) L 01/09/18 06:00 Est GFR ( Amer) > 60 01/09/18 06:00 Est GFR (Non-Af Amer) > 60 01/09/18 06:00 POC Glucose (mg/dL) 274 mg/dL (65-110) H 01/09/18 13:47 Random Glucose 188 mg/dL (70-110) H 01/09/18 06:00 Serum Osmolality 270 mosm/kg (272-300) L 01/08/18 11:00 Calcium 8.5 mg/dL (8.4-10.5) 01/09/18 06:00 Magnesium 1.8 mg/dL (1.7-2.2) 01/07/18 09:00 Total Bilirubin 0.7 mg/dL (0.2-1.3) 01/09/18 06:00 AST 37 U/L (14-36) H 01/09/18 06:00 ALT 30 U/L (7-56) 01/09/18 06:00 Alkaline Phosphatase 62 U/L (38-126) 01/09/18 06:00 Total Protein 6.7 g/dL (5.8-8.3) 01/09/18 06:00 Albumin 3.7 g/dL (3.0-4.8) 01/09/18 06:00 Globulin 3.0 gm/dL 01/09/18 06:00 Albumin/Globulin Ratio 1.3 (1.1-1.8) 01/09/18 06:00 Venous Blood Potassium 4.1 mmol/L (3.6-5.2) 01/07/18 09:00 Urine Color Yellow (YELLOW) 01/07/18 09:30 Urine Appearance Clear (CLEAR) 01/07/18 09:30 Urine pH 6.5 (4.7-8.0) 01/07/18 09:30 Ur Specific [place] 1.010 (1.005-1.035) 01/07/18 09:30 Urine Protein 30 mg/dL (<30 mg/dL) H 01/07/18 09:30 Urine Glucose (UA) >=1000 mg/dL (NEGATIVE) 01/07/18 09:30 Urine Ketones Trace mg/dL (NEGATIVE) H 01/07/18 09:30 Urine Blood Negative (NEGATIVE) 01/07/18 09:30 Urine Nitrate Negative (NEGATIVE) 01/07/18 09:30 Urine Bilirubin Negative (NEGATIVE) 01/07/18 09:30 Urine Urobilinogen 0.2 E.U./dL (<1 E.U./dL) 01/07/18 09:30 Ur Leukocyte Esterase Negative Aries/uL (NEGATIVE) 01/07/18 09:30 Urine RBC Negative /hpf (0-2) 01/07/18 09:30 Urine WBC 0 - 2 /hpf (0-6) 01/07/18 09:30 Ur Epithelial Cells 0 - 2 /hpf (0-5) 01/07/18 09:30 Urine Bacteria Few (NEG) 01/07/18 09:30 Urine Osmolality 369 mosm/kg (300-1000) 01/08/18 14:00 Ur Random Sodium 79 meq/L 01/08/18 14:00 Attending/Attestation - Attestation I have personally seen and examined this patient.: Yes I have fully participated in the care of the patient.: Yes I have reviewed all pertinent clinical information, including history, physical exam and plan: Yes Notes (Text): 01/09/18 15:05 Medical record note made by the resident after discussion with my direction and input after the patient was personally seen and examined by me. I have reviewed the chart and agree that the record accurately reflects by personal performance of the history, physical exam, data review, and medical decision-making, in the course for the patient. I have also personally directed the plan of care 82 yr old female with PMH HTN, HLD, DM, Breast Cancer and CABGx2 (1982 and 1995) presents to [facility] for elevated sugars (over 300 at home) and vague LUQ abdominal pain. Patient was also found to have mild hyponatremia due to decrease oral intake.Ct scan of abdomen and Pelvis is unremarkable.Patient is tolerating food. Hyponatremia is improved.Blood sugars are better controlled. She will be discharged home and will follow up with PCP. She has been advised to keep record of blood sugars for PCP. Management plan was discussed in detail with patient. Education was provided.
== END 2018-01-09 14:58 | disposition home or self-care (01) ==
LOC: ED 08:24 → ERH 10:30 → 5RSO 11:45
PROVIDERS: ADMIT Internal Medicine; ATTEND Internal Medicine
DX: E10.65 Type 1 diabetes mellitus with hyperglycemia (principal); E87.1 Hypo-osmolality and hyponatremia; I10 Essential (primary) hypertension; E78.5 Hyperlipidemia, unspecified; Z79.4 Long term (current) use of insulin; Z85.3 Personal history of malignant neoplasm of breast; Z95.1 Presence of aortocoronary bypass graft
CPT/HCPCS: 36415; 74176; 80048; 80053; 81001; 82803; 82948; 83735; 83930; 83935; 84300; 85025; 96361; 96372; 96374; 96375; 96376; 99285; C9113; G0378; J0360; J1644; J7030

== ENCOUNTER 2018-03-05 09:11 | Inpatient (IN) | payer MEDICARE, BC ==
[2018-03-05] MEDS ORDERED: Sodium Chloride 0.9% 1,000 ML IV STA ×5 (09:33→23:48)
--- NOTE | 2018-03-05 09:47 | ED PDOC ---
Arrival/HPI - General Historian: Patient, Family (Daughter) - History of Present Illness Narrative History of Present Illness (Text): 03/05/18 09:38 82 y o female PMhx HTN, HLD, CAD, DM2, presents to the ED [facility] for hyperglycemia. Per daughter at bedside, states that she called pt at 8 am today and stated that pt was having slurred speech and was not acting like herself. States that she also heard through phone pt lose balance and fall into refrigerator. She went to pt's house to see pt and thus called EMS. Reports that pt did not eat or take her insulin today; states that pt's sugars were elevated yesterday into the 300s-400s. Pt was [place] [facility] [place] for management of hyperglycemia. On exam, pt denies any acute complaints, other than stating that she is talking funny. Denies any pain currently. Denies headache, dizziness, chest pain, sob, n/v/d/c, abd pain, urinary complaints, or other symptoms. PMhx: PMhx HTN, HLD, CAD, DM2, breast ca s/p surgical removal of mass of L breast, hypothyroidism PSurgHx: Lumpectomy of L breast, cardiac bypass x 2 (1982, 2003) Allergies: NKDA Home meds: Synthroid 100 mcg daily, Lisinopril 5 mg daily, Simvastatin 20 mg daily, ASA daily, 5-4-6 U Humalog, 12 U Lantus at bedtime Fam hx: denies Soc hx: denies smoking, EtOH or illicit drug use; , lives at home alone, does not use any assistive devices to ambulate PMD: Dr. Barney Cardio: Dr. Garzon Time/Duration: Prior to Arrival Symptom Onset: Sudden Symptom Course: Unchanged Quality: Unable to Describe Activities at Onset: Rest Context: Home <Clyde Simons - Last Filed: 03/05/18 11:10> <Antwan Desai - Last Filed: 03/05/18 12:06> - General Chief Complaint: High Blood Sugar Time Seen by Provider: 03/05/18 09:12 Past Medical History - Provider Review Nursing Documentation Reviewed: Yes - Infectious Disease Hx of Infectious Diseases: None - Reproductive Menopause: Yes - Cardiac Hx Cardiac Disorders: Yes Other/Comment: triple bypass - Pulmonary Hx Respiratory Disorders: No - Neurological Hx Neurological Disorder: No - HEENT Hx HEENT Disorder: No - Renal Hx Renal Disorder: No - Endocrine/Metabolic Hx Endocrine Disorders: Yes Hx Diabetes Mellitus Type 2: Yes - Hematological/Oncological Hx Blood Disorders: No - Integumentary Hx Dermatological Disorder: No - Musculoskeletal/Rheumatological Hx Musculoskeletal Disorders: No - Gastrointestinal Hx Gastrointestinal Disorders: No - Genitourinary/Gynecological Hx Genitourinary Disorders: No - Psychiatric Hx Psychophysiologic Disorder: No Hx Substance Use: No - Surgical History Hx Open Heart Surgery: Yes (CABG x2) Other/Comment: breast Ca R lumphectomy - Anesthesia Hx Anesthesia: Yes Hx Anesthesia Reactions: No Hx Malignant Hyperthermia: No - Suicidal Assessment Feels Threatened In Home Enviroment: No <Clyde Simons - Last Filed: 03/05/18 11:10> Family/Social History - Physician Review Nursing Documentation Reviewed: Yes Family/Social History: No Known Family HX Smoking Status: Never Smoked Hx Alcohol Use: No Hx Substance Use: No <Clyde Simons - Last Filed: 03/05/18 11:10> Allergies/Home Meds <Clyde Simons - Last Filed: 03/05/18 11:10> <Antwan Desai - Last Filed: 03/05/18 12:06> Allergies/Adverse Reactions: Allergies No Known Allergies Allergy (Verified 03/05/18 09:24) Home Medications: Home Meds Medication Instructions Recorded Confirmed Levothyroxine [Synthroid] 100 mcg PO DAILY 03/05/18 03/05/18 Multivit-Min/FA/Lycopen/Lutein 1 tab PO DAILY 03/05/18 03/05/18 [Centrum Silver Tablet] Review of Systems - Physician Review All systems were reviewed & negative as marked: Yes - Review of Systems Constitutional: absent: Fatigue, Fevers, Night Sweats Eyes: absent: Vision Changes ENT: absent: Hearing Changes, Tinnitus Respiratory: absent: SOB, Cough, Wheezing Cardiovascular: absent: Chest Pain, Palpitations, Edema, DOBBS Gastrointestinal: absent: Abdominal Pain, Stool Changes, Constipation, Diarrhea, Nausea, Vomiting, Appetite Changes Genitourinary Female: absent: Dysuria, Frequency, Urine Output Changes Musculoskeletal: absent: Arthralgias, Back Pain Skin: absent: Rash Neurological: Speech Changes. absent: Headache, Dizziness, Focal Weakness <Ronak,Clyde - Last Filed: 03/05/18 11:10> Physical Exam Vital Signs Reviewed: Yes Vital Signs Temp Pulse Resp BP Pulse Ox 03/05/18 09:20 98 F 95 H 19 109/75 100 Temperature: Afebrile Blood Pressure: Normal Pulse: Regular Respiratory Rate: Normal Appearance: Positive for: Well-Appearing, Non-Toxic, Comfortable Pain Distress: None Mental Status: Positive for: Alert and Oriented X 3 - Systems Exam Head: Present: Atraumatic Pupils: Present: PERRL Extroacular Muscles: Present: EOMI Conjunctiva: Present: Normal Mouth: Present: Moist Mucous Membranes Neck: Present: Normal Range of Motion. No: JVD, Lymphadenopathy Respiratory/Chest: Present: Clear to Auscultation, Good Air Exchange. No: Respiratory Distress, Accessory Muscle Use, Wheezes, Rales, Rhonchi Cardiovascular: Present: Regular Rate and Rhythm, Murmurs, Tachycardic. No: Rub, Gallop Abdomen: Present: Normal Bowel Sounds. No: Tenderness, Distention, Guarding, Mass/Organomegaly Upper Extremity: Present: Normal Inspection, Normal ROM, NORMAL PULSES, Neurovascularly Intact, Capillary Refill < 2s, Norm 2-Pt Discrimination. No: Cyanosis, Edema Lower Extremity: Present: Normal Inspection, NORMAL PULSES, Normal ROM, Neurovascularly Intact, Capillary Refill < 2 s. No: Edema, CALF TENDERNESS Neurological: Present: GCS=15, CN II-XII Intact, Speech Normal (Clear speech, pt has dry mouth) Skin: Present: Warm, Dry, Normal Color. No: Rashes Psychiatric: Present: Alert, Oriented x 3, Normal Insight, Normal Concentration <Ronak,Clyde - Last Filed: 03/05/18 11:10> Vital Signs Temp Pulse Resp BP Pulse Ox 03/05/18 09:20 98 F 95 H 19 109/75 100 <Antwan Desai - Last Filed: 03/05/18 12:06> Medical Decision Making ED Course and Treatment: 03/05/18 09:53 82 y o female PMhx HTN, HLD, CAD, DM2, presents with hyperglycemia. Plan: -Labs -VBG -EKG -CXR -CT head -IVF Will continue to monitor. EKG sinus rhythm at 98 bpm, RBBB; T-wave inversions noted in all leads. 03/05/18 11:10 Repeat EKG demonstrates RBBB, 50 bpm. Troponin 2.06. Lactate 7.2, pH 7.00 on VBG. Elevated WBC. Head CT neg for acute hemorrhage; CXR demonstrates no active disease. Stool occult positive at bedside. Spoke with ICU Plant Physiologist (Dr. Castro) who will accept pt to ICU. Spoke with hospitalist Dr. Ann, who will accept pt admission under hospitalist service. Pt to be admitted for DKA, NSTEMI, hyponatremia. - RAD Interpretation Radiology Orders: 03/05/18 09:33 CHEST PORTABLE [RAD] Stat 03/05/18 09:34 HEAD W/O CONTRAST [CT] Stat - Medication Orders Current Medication Orders: Sodium Chloride (Sodium Chloride 0.9%) 1,000 mls @ 999 mls/hr IV .Q1H1M STA Stop: 03/05/18 10:33 <Clyde Simons - Last Filed: 03/05/18 11:10> ED Course and Treatment: 03/05/18 10:16 Patient is an 82 year old female presenting to the emergency department complaining of hyperglycemia. In agreement with resident note, which includes further HPI details. Patient was seen and evaluated with resident, came up with plan and treatment together. 03/05/18 12:[address] [facility] / hyperglycemia x 2 days. pt lvies by herslef. noted sternomy wire on exam. neuro intac tin er. pt in dka, insulin fluids given. noted LA, empric antibiotics given, incase sepssi, although cxr ua neg. abd soft no ttp. noted ekg changes. not codeheart cnadidate as per cards. asa heparin held as noted drop in h/h, guiac pos. accepted icu. - Lab Interpretations Lab Results: 03/05/18 09:40 03/05/18 09:40 Lab Results 03/05/18 09:40: Serum Osmolality 326 H 03/05/18 09:40: pO2 48, VBG pH 7.00 L*, VBG pCO2 35.0 L, VBG HCO3 8.6 L, VBG Total CO2 9.7 L, VBG O2 Sat (Calc) 78.5 H, VBG Base Excess -21.9 L, VBG Potassium 5.4 H, Sodium 119.0 L*, Chloride 83.0 L, Glucose > 750 H* D, Lactate 7.6 H*, FiO2 21.0, Venous Blood Potassium 5.4 H 03/05/18 09:40: Sodium 122 L, Chloride 85 L, Potassium 5.6 H* D, Carbon Dioxide 9 L D, Anion Gap 33 H, BUN 45 H, Creatinine 2.0 H, Est GFR ( Amer) 29, Est GFR (Non-Af Amer) 24, Random Glucose 936 H* D, Calcium 9.4, Magnesium 2.2, Total Bilirubin 1.8 H, AST 178 H D, ALT 104 H, Alkaline Phosphatase 91, Lactate Dehydrogenase 682, Total Creatine Kinase 199, Troponin I Pending, Total Protein 6.5, Albumin 4.0, Globulin 2.5, Albumin/Globulin Ratio 1.6, B-Hydroxybutyrate Pending 03/05/18 09:40: PT 10.6, INR 0.92, APTT 21.0 L 03/05/18 09:40: WBC 15.2 H, RBC 3.41 L, Hgb 10.7 L D, Hct 34.3 L, MCV 100.6 D, MCH 31.4, MCHC 31.2, RDW 14.5, Plt Count 276, MPV 9.6, Gran % 85.3 H, Lymph % (Auto) 4.8 L, [place] % (Auto) 9.7 H, Eos % (Auto) 0.1 L, Baso % (Auto) 0.1, Gran # 12.97 H, Lymph # (Auto) 0.7 L, [place] # (Auto) 1.5 H, Eos # (Auto) 0.0, Baso # (Auto) 0.02, Neutrophils % (Manual) Pending, Lymphocytes % (Manual) Pending, Monocytes % (Manual) Pending 03/05/18 09:37: Urine Color Light red, Urine Appearance Slight-cloudy, Urine pH 6.0, Ur Specific [place] 1.020, Urine Protein 100 H, Urine Glucose (UA) >=1000, Urine Ketones 15 H, Urine Blood Large H, Urine Nitrate Negative, Urine Bilirubin Small H, Urine Urobilinogen 0.2, Ur Leukocyte Esterase Trace H, Urine RBC Tntc, Urine WBC 2 - 5, Ur Epithelial Cells 0 - 2, Urine Bacteria Mod - RAD Interpretation Radiology Orders: 03/05/18 09:33 CHEST PORTABLE [RAD] Stat 03/05/18 09:34 HEAD W/O CONTRAST [CT] Stat - Medication Orders Current Medication Orders: Sodium Chloride (Sodium Chloride 0.9%) 1,000 mls @ 999 mls/hr IV .Q1H1M STA Stop: 03/05/18 10:33 Last Admin: 03/05/18 09:50 Dose: 999 mls/hr eMAR Start Stop Document 03/05/18 09:50 KV (Rec: 03/05/18 09:52 [place] [id number] Intravenous Solution Start Date 03/05/18 Start Time 09:50 Vancomycin HCl (Vancomycin 1gm) 1 gm in 250 mls @ 167 mls/hr IVPB STAT STA; Protocol Stop: 03/05/18 11:28 Piperacillin Sod/Tazobactam Sod (Zosyn 3.375 In Ns 100ml) 100 mls @ 200 mls/hr IVPB STAT STA; Protocol Stop: 03/05/18 10:28 Sodium Chloride (Sodium Chloride 0.9%) 1,000 mls @ 999 mls/hr IV .Q1H1M STA Stop: 03/05/18 11:04 Insulin Human Regular 100 (units/ Sodium Chloride) 100 mls @ 5.13 mls/hr IV .[id number] PRN; Protocol PRN Reason: TITRATE PER MD ORDER Discontinued Medications Insulin Human Regular (Humulin R) 5 units IV STAT STA Stop: 03/05/18 10:13 <Antwan Desai - Last Filed: 03/05/18 12:06> - PA / [employer]YCLING [employer]PERVISOR / Resident Statement / has reviewed & agrees with the documentation as recorded. / has examined the patient and agrees with the treatment plan. - Scribe Statement The provider has reviewed the documentation as recorded by the Ruth Alexander All medical record entries made by the Leanaibe were at my direction and personally dictated by me. I have reviewed the chart and agree that the record accurately reflects my personal performance of the history, physical exam, medical decision making, and the department course for this patient. I have also personally directed, reviewed, and agree with the discharge instructions and disposition. <Antwan Desai - Last Filed: 03/05/18 12:06> Disposition/Present on Arrival - Present on Arrival Any Indicators Present on Arrival: Yes History of DVT/PE: No History of Uncontrolled Diabetes: Yes Urinary Catheter: No History of Decub. Ulcer: No History Surgical Site Infection Following: None - Disposition Have Diagnosis and Disposition been Completed?: Yes Disposition Time: 11:15 Patient Plan: ICU <Clyde Simons - Last Filed: 03/05/18 11:10> <Antwan Desai - Last Filed: 03/05/18 12:06> - Disposition Diagnosis: Diabetic ketoacidosis, NSTEMI (non-ST elevated myocardial infarction), Hyponatremia Disposition: HOSPITALIZED Condition: GUARDED Critical Care Time - Critical Care Note Total Time (in mins): 60 Documented critical care: time excludes all time spent performing seperately billable procedures. <Antwan Desai - Last Filed: 03/05/18 12:06>
[2018-03-05 09:50] LABS: VENOUS BLOOD GAS BASE EXCESS -21.9 mmol/L (0.0-2.0); VENOUS BLOOD GAS PO2 48 mm/Hg (30-55)
[2018-03-05 09:52] LABS: BASO # 0.02 K/mm3 (0.0-2.0); BASO % 0.1 % (0.0-3.0); EOS % 0.1 % (1.5-5.0); GRAN # 12.97 (1.4-6.5); GRAN % 85.3 % (50.0-68.0); HEMOGLOBIN 10.7 g/dL (12.0-16.0); LYMPH # 0.7 (1.2-3.4); LYMPH % 4.8 % (22.0-35.0); MEAN CELL VOLUME 100.6 fl (80.0-105.0); MEAN CORPUSCULAR HEMOGLOBIN 31.4 pg (25.0-35.0); MEAN CORPUSCULAR HGB CONC 31.2 g/dl (31.0-37.0); MEAN PLATELET VOLUME 9.6 fl (7.0-11.0); MONO # 1.5 (0.1-0.6); MONO % 9.7 % (1.0-6.0); PLATELET COUNT 276 10^3/uL (120.0-450.0); RBC 3.41 10^6/uL (3.5-6.1); RED CELL DISTRIBUTION WIDTH 14.5 % (11.5-14.5); WHITE BLOOD COUNT 15.2 10^3/uL (4.5-11.0)
[2018-03-05] MEDS ORDERED: Piperacillin/Tazobact 3.375 gm 100 ML IVPB STA (09:59)
[2018-03-05] MEDS ORDERED: Vancomycin 1gm in NS 250ml 1 GM/250 ML BAG IVPB STA (09:59)
[2018-03-05 10:00] LABS: INR 0.92; PROTHROMBIN TIME 10.6 SECONDS (9.4-12.5)
[2018-03-05 10:06] LABS: URINE BILIRUBIN SMALL (NEGATIVE); URINE BLOOD LARGE (NEGATIVE); URINE GLUCOSE (UA) >=1000 mg/dL (NEGATIVE); URINE LEUKOCYTE ESTERASE TRACE Leu/uL (NEGATIVE); URINE PROTEIN 100 mg/dL (<30 mg/dL); URINE UROBILINOGEN 0.2 E.U./dL (<1 E.U./dL)
[2018-03-05 10:07] LABS: URINE APPEARANCE SLIGHT-CLOUDY (CLEAR); URINE COLOR LIGHT RED (YELLOW)
[2018-03-05 10:08] LABS: URINE RBC TNTC /hpf (0-2)
[2018-03-05 10:09] LABS: URINE BACTERIA MOD (NEG); URINE EPITHELIAL CELLS 0 - 2 /hpf (0-5)
[2018-03-05 10:10] LABS: ALB/GLOB RATIO 1.6 (1.1-1.8); CALCIUM 9.4 mg/dL (8.4-10.5)
[2018-03-05] MEDS ORDERED: Insulin Regular 100 UNITS in Sodium Chloride 0.9% 99 ML IV PRN ×3 (10:12→17:17)
[2018-03-05] MEDS ORDERED: Insulin Regular 1 UNITS/0.01 ML ML IV STA ×2 (10:12→19:12)
--- NOTE | 2018-03-05 10:15 | CT ---
Date of service: 03/05/2018 PROCEDURE: CT HEAD WITHOUT CONTRAST. HISTORY: ams/syncope COMPARISON: Comparison is made with 01/22/2018 TECHNIQUE: Axial computed tomography images were obtained through the head/brain without intravenous contrast. Radiation dose: Total exam DLP = 803.07 mGy-cm. This CT exam was performed using one or more of the following dose reduction techniques: Automated exposure control, adjustment of the mA and/or kV according to patient size, and/or use of iterative reconstruction technique. FINDINGS: HEMORRHAGE: No intracranial hemorrhage. BRAIN: No mass effect or edema. Moderate atrophy and [id number] chronic microvascular white matter ischemic changes are again noted. Atherosclerotic calcification in the distal carotid and vertebral arteries VENTRICLES: Unremarkable. No hydrocephalus. CALVARIUM: Unremarkable. PARANASAL SINUSES: Unremarkable as visualized. No significant inflammatory changes. MASTOID AIR CELLS: Unremarkable as visualized. No inflammatory changes. OTHER FINDINGS: None. IMPRESSION: No evidence of acute intracranial hemorrhage mass effect or midline shift. Moderate atrophy and ibbr-[id number] chronic microvascular white matter ischemic changes.
[2018-03-05 10:16] LABS: TROPONIN I 2.07 ng/mL
[2018-03-05 10:23] LABS: BAND 1 % (0-2); EOSINOPHIL 1 % (0.0-3.0); LYMPHOCYTE 3 % (22.0-35.0); METAMYELOCYTE 2 %; MONOCYTE 7 % (1.0-6.0); NEUTROPHIL 86 % (50.0-70.0); PLATELET ESTIMATE NORMAL (NORMAL)
[2018-03-05 10:35] LABS: ACETAMINOPHEN < 10.0 ug/ml (10.0-20.0); SALICYLATE < 1 mg/dL (2.0-20.0)
--- NOTE | 2018-03-05 10:44 | CP.PCM.CON ---
<Mic Day - Last Filed: 03/05/18 12:42> History of Present Illness - History of Present Illness History of Present Illness: Mic Day, PGY1 ICU Consult Note for Dr. Castro Patient is a 82 y o female with PMHx HTN, HLD, CAD, DM2, breast ca s/p surgical removal of mass of L breast, hypothyroidism, diverticulosis who presents to the ED [facility] for slurred speech and confusion. Patient was noted to be hyperglycemia in the field. Per daughter at bedside, states that she called patient over the phone at 8am this morning and realized patient was more confused and having slurred speech. She states patient may also have lost her balance, but there were no falls mentioned. As per daughter, patient missed her insulin today and sugar was in the 300-400s yesterday. In ED, Vitals: Temp 98, HR 95, RR 19, BP 109/75, SaO2 100%. BG was 936. WBC 15.2, K 5.6. VBG showed pH 7.0 and UA positive for ketones. CXR and Head CT ordered. ICU was consulted for DKA. Patient was evaluated by ICU team. Her current mental status is AAOx2. As per daughter, the patient was [place] [facility] [place] in which her baseline mental status has worsened since then. Currently, patient denies cough, fever, chills, n/v/d, cp, sob, abdominal pain. No recent sick contacts and no recent travel. A full 12 point ROS was conducted and unremarkable except as stated above. As per prior charting: PMD: Dr. Barney Cardio: Dr. Garzon PMHx: HTN, HLD, CAD, DM2, breast ca s/p surgical removal of mass of L breast, hypothyroidism, diverticulosis PSurgHx: Lumpectomy of L breast, cardiac bypass x 2 (1982, 2003) Allergies: NKDA Home meds: Synthroid 100 mcg daily, Lisinopril 5 mg daily, Simvastatin 20 mg daily, ASA daily, 5-4-6 U Humalog, 12 U Lantus at bedtime Fam hx: denies Soc hx: denies smoking, EtOH or illicit drug use; , lives at home alone, does not use any assistive devices to ambulate Review of Systems - Review of Systems All systems: reviewed and no additional remarkable complaints except (as per HPI) Past Patient History - Infectious Disease Hx of Infectious Diseases: None - Past Social History Smoking Status: Never Smoked - CARDIAC Hx Cardiac Disorders: Yes Other/Comment: triple bypass - PULMONARY Hx Respiratory Disorders: No - NEUROLOGICAL Hx Neurological Disorder: No - HEENT Hx HEENT Problems: No - RENAL Hx Chronic Kidney Disease: No - ENDOCRINE/METABOLIC Hx Endocrine Disorders: Yes Hx Diabetes Mellitus Type 2: Yes - HEMATOLOGICAL/ONCOLOGICAL Hx Blood Disorders: No - INTEGUMENTARY Hx Dermatological Problems: No - MUSCULOSKELETAL/RHEUMATOLOGICAL Hx Musculoskeletal Disorders: No - GASTROINTESTINAL Hx Gastrointestinal Disorders: No - GENITOURINARY/GYNECOLOGICAL Hx Genitourinary Disorders: No - PSYCHIATRIC Hx Psychophysiologic Disorder: No Hx Substance Use: No - SURGICAL HISTORY Hx Open Heart Surgery: Yes (CABG x2) Other/Comment: breast Ca R lumphectomy - ANESTHESIA Hx Anesthesia: Yes Hx Anesthesia Reactions: No Hx Malignant Hyperthermia: No Meds Allergies/Adverse Reactions: Allergies Allergy/AdvReac Type Severity Reaction Status Date / Time No Known Allergies Allergy Verified 03/05/18 09:24 - Medications Medications: Current Medications Vancomycin HCl (Vancomycin 1gm) 1 gm in 250 mls @ 167 mls/hr IVPB STAT STA; Protocol Stop: 03/05/18 11:28 Sodium Chloride (Sodium Chloride 0.9%) 1,000 mls @ 999 mls/hr IV .Q1H1M STA Stop: 03/05/18 11:04 Last Admin: 03/05/18 10:30 Dose: 999 mls/hr Insulin Human Regular 100 (units/ Sodium Chloride) 100 mls @ 5.13 mls/hr IV .[id number] PRN; Protocol PRN Reason: TITRATE PER MD ORDER Physical Exam - Constitutional Appears: No Acute Distress - Head Exam Head Exam: ATRAUMATIC, NORMAL INSPECTION, NORMOCEPHALIC - Eye Exam Eye Exam: EOMI. 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 absent: Rales, Rhonchi, Wheezes - Cardiovascular Exam Cardiovascular Exam: RRR, +S1, +S2 Additional comments: Chest exam shows visible sternotomy wire. Wound cx collected. - GI/Abdominal Exam GI & Abdominal Exam: Normal Bowel Sounds, Soft. absent: Firm, Guarding, Rebound, Rigid - Extremities Exam Extremities exam: Positive for: full ROM, normal inspection. Negative for: calf tenderness Additional comments: No pitting edema or calf swelling/tenderness. 5/5 motor strength in all extremities. - Neurological Exam Neurological exam: Alert (AAOx2), CN II-XII Intact Results - Vital Signs Recent Vital Signs: Last Vital Signs Temp 98 F 03/05/18 09:20 Pulse 95 H 03/05/18 09:20 Resp 19 03/05/18 09:20 BP 109/75 03/05/18 09:20 Pulse Ox 100 03/05/18 09:20 - Labs Result Diagrams: 03/05/18 09:40 03/05/18 09:40 Labs: Laboratory Results - last 24 hr 03/05/18 03/05/18 03/05/18 09:30 09:37 09:40 WBC 15.2 H RBC 3.41 L Hgb 10.7 L D Hct 34.3 L MCV 100.6 D MCH 31.4 MCHC 31.2 RDW 14.5 Plt Count 276 MPV 9.6 Gran % 85.3 H Lymph % (Auto) 4.8 L [place] % (Auto) 9.7 H Eos % (Auto) 0.1 L Baso % (Auto) 0.1 Gran # 12.97 H Lymph # (Auto) 0.7 L [place] # (Auto) 1.5 H Eos # (Auto) 0.0 Baso # (Auto) 0.02 Neutrophils % (Manual) 86 H Band Neutrophils % 1 Lymphocytes % (Manual) 3 L Monocytes % (Manual) 7 H Eosinophils % (Manual) 1 Metamyelocytes % 2 Platelet Evaluation Normal PT INR APTT pO2 VBG pH VBG pCO2 VBG HCO3 VBG Total CO2 VBG O2 Sat (Calc) VBG Base Excess VBG Potassium Sodium Chloride Glucose Lactate FiO2 Potassium Carbon Dioxide Anion Gap BUN Creatinine Est GFR ( Amer) Est GFR (Non-Af Amer) Random Glucose Serum Osmolality Calcium Magnesium Total Bilirubin AST ALT Alkaline Phosphatase Lactate Dehydrogenase Total Creatine Kinase Troponin I Total Protein Albumin Globulin Albumin/Globulin Ratio Venous Blood Potassium Urine Color Light red Urine Appearance Slight-cloudy Urine pH 6.0 Ur Specific [place]sey 1.020 Urine Protein 100 H Urine Glucose (UA) >=1000 Urine Ketones 15 H Urine Blood Large H Urine Nitrate Negative Urine Bilirubin Small H Urine Urobilinogen 0.2 Ur Leukocyte Esterase Trace H Urine RBC Tntc Urine WBC 2 - 5 Ur Epithelial Cells 0 - 2 Urine Bacteria Mod Salicylates < 1 L Acetaminophen < 10.0 L 03/05/18 03/05/18 03/05/18 09:40 09:40 09:40 WBC RBC Hgb Hct MCV MCH MCHC RDW Plt Count MPV Gran % Lymph % (Auto) [place] % (Auto) Eos % (Auto) Baso % (Auto) Gran # Lymph # (Auto) [place] # (Auto) Eos # (Auto) Baso # (Auto) Neutrophils % (Manual) Band Neutrophils % Lymphocytes % (Manual) Monocytes % (Manual) Eosinophils % (Manual) Metamyelocytes % Platelet Evaluation PT 10.6 INR 0.92 APTT 21.0 L pO2 48 VBG pH 7.00 L* VBG pCO2 35.0 L VBG HCO3 8.6 L VBG Total CO2 9.7 L VBG O2 Sat (Calc) 78.5 H VBG Base Excess -21.9 L VBG Potassium 5.4 H Sodium 122 L 119.0 L* Chloride 85 L 83.0 L Glucose > 750 H* D Lactate 7.6 H* FiO2 21.0 Potassium 5.6 H* D Carbon Dioxide 9 L D Anion Gap 33 H BUN 45 H Creatinine 2.0 H Est GFR ( Amer) 29 Est GFR (Non-Af Amer) 24 Random Glucose 936 H* D Serum Osmolality Calcium 9.4 Magnesium 2.2 Total Bilirubin 1.8 H AST 178 H D ALT 104 H Alkaline Phosphatase 91 Lactate Dehydrogenase 682 Total Creatine Kinase 199 Troponin I 2.07 H* D Total Protein 6.5 Albumin 4.0 Globulin 2.5 Albumin/Globulin Ratio 1.6 Venous Blood Potassium 5.4 H Urine Color Urine Appearance Urine pH Ur Specific [place] Urine Protein Urine Glucose (UA) Urine Ketones Urine Blood Urine Nitrate Urine Bilirubin Urine Urobilinogen Ur Leukocyte Esterase Urine RBC Urine WBC Ur Epithelial Cells Urine Bacteria Salicylates Acetaminophen 03/05/18 09:40 WBC RBC Hgb Hct MCV MCH MCHC RDW Plt Count MPV Gran % Lymph % (Auto) [place] % (Auto) Eos % (Auto) Baso % (Auto) Gran # Lymph # (Auto) [place] # (Auto) Eos # (Auto) Baso # (Auto) Neutrophils % (Manual) Band Neutrophils % Lymphocytes % (Manual) Monocytes % (Manual) Eosinophils % (Manual) Metamyelocytes % Platelet Evaluation PT INR APTT pO2 VBG pH VBG pCO2 VBG HCO3 VBG Total CO2 VBG O2 Sat (Calc) VBG Base Excess VBG Potassium Sodium Chloride Glucose Lactate FiO2 Potassium Carbon Dioxide Anion Gap BUN Creatinine Est GFR ( Amer) Est GFR (Non-Af Amer) Random Glucose Serum Osmolality 326 H Calcium Magnesium Total Bilirubin AST ALT Alkaline Phosphatase Lactate Dehydrogenase Total Creatine Kinase Troponin I Total Protein Albumin Globulin Albumin/Globulin Ratio Venous Blood Potassium Urine Color Urine Appearance Urine pH Ur Specific [place] Urine Protein Urine Glucose (UA) Urine Ketones Urine Blood Urine Nitrate Urine Bilirubin Urine Urobilinogen Ur Leukocyte Esterase Urine RBC Urine WBC Ur Epithelial Cells Urine Bacteria Salicylates Acetaminophen Assessment & Plan - Assessment and Plan (Free Text) Assessment: Patient is a 82 y/o F with PMHx of HTN, HLD, CAD, DM2, breast ca s/p surgical removal of mass of L breast, hypothyroidism, Diverticulosis who presented for slurred speech and confusion. Patient was found to be in DKA. ICU was consulted for management. Plan: Neuro: - Slurred speech and increased confusion, as per daughter - CT Head w/o contrast (03/05: negative for bleed - AAOx2. Worsening mental status since 12/2017 as per daughter at bedside Pulm: - Maintain SaO2 > 92% - Patient is saturating well on room air at this time Cardio: - NSTEMI likely 2/2 demand ischemia - EKG in ED: NSR with multiple ST depressions vs T wave inversions noted. - Trop 2.07 in ED; f/u serial troponins - Cardio is on consult. Follow up recommendations. - EKG in the morning - Echo ordered to assess EF and heart function; avoid fluid overload with fluid resuscitation - Wound cx sent for sternotomy wire that is visible on chest wall GI: - Transaminitis likely due to demand ischemia - AST/ALT on admission 178/104 - monitor CMP - NPO Renal: - Pseudohyponatremia 2/2 Hyperglycemia - Na is 122 on admission; corrected Na is 134 given glucose was 936 on admission - K was 5.6; monitor - Cr is 2.0 (baseline is 0.5) - Replete lytes as needed Heme: - Hgb is 10.7, lower than baseline - H/H stable - DVT ppx Endo: - DKA 2/2 non-compliance vs infection vs MS - AG in ED is 28; f/u repeat gap - High Anion Gap Metabolic acidosis; will repeat vbg with lactate (lactate 7.6 in ED) - Transfer to ICU - cmp q6 - Mg and phos - vanco and zosyn for empiric coverage - NS bolus x1; given x2 in ED - Fluid resuscitation with NS @ 200 cc/hr - UA +ketones ID: - Will treat with empiric antibiotics for possible infectious source for DKA - vanco and zosyn - CXR - UA - procal level - sputum cx, blood cx, urine cx ordered - afebrile with leukoyctosis Dispo: Patient will be transferred to the ICU for management of DKA. Case was discussed and reviewed with Attending Physician, Dr. Castro. <Jaclyn Castro - Last Filed: 03/05/18 13:47> Meds - Medications Medications: Current Medications Insulin Human Regular 100 (units/ Sodium Chloride) 100 mls @ 5.13 mls/hr IV .[id number] PRN; Protocol PRN Reason: TITRATE PER MD ORDER Last Admin: 03/05/18 10:55 Dose: 0.1 units/kg/hr, 5.13 mls/hr Sodium Chloride (Sodium Chloride 0.9%) 1,000 mls @ 200 mls/hr IV .Q5H OZZY Vancomycin HCl (Vancomycin 1gm) 1 gm in 250 mls @ 167 mls/hr IVPB DAILY OZZY; Protocol Piperacillin Sod/Tazobactam Sod (Zosyn 3.375 In Ns 100ml) 100 mls @ 25 mls/hr IVPB Q8 OZZY; Protocol Stop: 03/06/18 01:59 Results - Vital Signs Recent Vital Signs: Last Vital Signs Temp 96.3 F L 03/05/18 11:00 Pulse 55 L 03/05/18 11:00 Resp 18 03/05/18 11:00 BP 91/32 L 03/05/18 11:00 Pulse Ox 100 03/05/18 11:00 - Labs Result Diagrams: 03/05/18 09:40 03/05/18 09:40 Labs: Laboratory Results - last 24 hr 03/05/18 03/05/18 03/05/18 09:14 09:30 09:37 WBC RBC Hgb Hct MCV MCH MCHC RDW Plt Count MPV Gran % Lymph % (Auto) [place] % (Auto) Eos % (Auto) Baso % (Auto) Gran # Lymph # (Auto) [place] # (Auto) Eos # (Auto) Baso # (Auto) Neutrophils % (Manual) Band Neutrophils % Lymphocytes % (Manual) Monocytes % (Manual) Eosinophils % (Manual) Metamyelocytes % Platelet Evaluation PT INR APTT pO2 VBG pH VBG pCO2 VBG HCO3 VBG Total CO2 VBG O2 Sat (Calc) VBG Base Excess VBG Potassium Sodium Chloride Glucose Lactate FiO2 Potassium Carbon Dioxide Anion Gap BUN Creatinine Est GFR ( Amer) Est GFR (Non-Af Amer) POC Glucose (mg/dL) > 500 H* Random Glucose Serum Osmolality Calcium Magnesium Total Bilirubin AST ALT Alkaline Phosphatase Lactate Dehydrogenase Total Creatine Kinase Troponin I Total Protein Albumin Globulin Albumin/Globulin Ratio Venous Blood Potassium Urine Color Light red Urine Appearance Slight-cloudy Urine pH 6.0 Ur Specific [place]sey 1.020 Urine Protein 100 H Urine Glucose (UA) >=1000 Urine Ketones 15 H Urine Blood Large H Urine Nitrate Negative Urine Bilirubin Small H Urine Urobilinogen 0.2 Ur Leukocyte Esterase Trace H Urine RBC Tntc Urine WBC 2 - 5 Ur Epithelial Cells 0 - 2 Urine Bacteria Mod Salicylates < 1 L Acetaminophen < 10.0 L 03/05/18 03/05/18 03/05/18 09:40 09:40 09:40 WBC 15.2 H RBC 3.41 L Hgb 10.7 L D Hct 34.3 L MCV 100.6 D MCH 31.4 MCHC 31.2 RDW 14.5 Plt Count 276 MPV 9.6 Gran % 85.3 H Lymph % (Auto) 4.8 L [place] % (Auto) 9.7 H Eos % (Auto) 0.1 L Baso % (Auto) 0.1 Gran # 12.97 H Lymph # (Auto) 0.7 L [place] # (Auto) 1.5 H Eos # (Auto) 0.0 Baso # (Auto) 0.02 Neutrophils % (Manual) 86 H Band Neutrophils % 1 Lymphocytes % (Manual) 3 L Monocytes % (Manual) 7 H Eosinophils % (Manual) 1 Metamyelocytes % 2 Platelet Evaluation Normal PT 10.6 INR 0.92 APTT 21.0 L pO2 VBG pH VBG pCO2 VBG HCO3 VBG Total CO2 VBG O2 Sat (Calc) VBG Base Excess VBG Potassium Sodium 122 L Chloride 85 L Glucose Lactate FiO2 Potassium 5.6 H* D Carbon Dioxide 9 L D Anion Gap 33 H BUN 45 H Creatinine 2.0 H Est GFR ( Amer) 29 Est GFR (Non-Af Amer) 24 POC Glucose (mg/dL) Random Glucose 936 H* D Serum Osmolality Calcium 9.4 Magnesium 2.2 Total Bilirubin 1.8 H AST 178 H D ALT 104 H Alkaline Phosphatase 91 Lactate Dehydrogenase 682 Total Creatine Kinase 199 Troponin I 2.07 H* D Total Protein 6.5 Albumin 4.0 Globulin 2.5 Albumin/Globulin Ratio 1.6 Venous Blood Potassium Urine Color Urine Appearance Urine pH Ur Specific [place] Urine Protein Urine Glucose (UA) Urine Ketones Urine Blood Urine Nitrate Urine Bilirubin Urine Urobilinogen Ur Leukocyte Esterase Urine RBC Urine WBC Ur Epithelial Cells Urine Bacteria Salicylates Acetaminophen 03/05/18 03/05/18 03/05/18 09:40 09:40 12:45 WBC RBC Hgb Hct MCV MCH MCHC RDW Plt Count MPV Gran % Lymph % (Auto) [place] % (Auto) Eos % (Auto) Baso % (Auto) Gran # Lymph # (Auto) [place] # (Auto) Eos # (Auto) Baso # (Auto) Neutrophils % (Manual) Band Neutrophils % Lymphocytes % (Manual) Monocytes % (Manual) Eosinophils % (Manual) Metamyelocytes % Platelet Evaluation PT INR APTT pO2 48 VBG pH 7.00 L* VBG pCO2 35.0 L VBG HCO3 8.6 L VBG Total CO2 9.7 L VBG O2 Sat (Calc) 78.5 H VBG Base Excess -21.9 L VBG Potassium 5.4 H Sodium 119.0 L* Chloride 83.0 L Glucose > 750 H* D Lactate 7.6 H* FiO2 21.0 Potassium Carbon Dioxide Anion Gap BUN Creatinine Est GFR ( Amer) Est GFR (Non-Af Amer) POC Glucose (mg/dL) Random Glucose Serum Osmolality 326 H Calcium Magnesium Total Bilirubin AST ALT Alkaline Phosphatase Lactate Dehydrogenase Total Creatine Kinase Troponin I 8.88 H* D Total Protein Albumin Globulin Albumin/Globulin Ratio Venous Blood Potassium 5.4 H Urine Color Urine Appearance Urine pH Ur Specific [place] Urine Protein Urine Glucose (UA) Urine Ketones Urine Blood Urine Nitrate Urine Bilirubin Urine Urobilinogen Ur Leukocyte Esterase Urine RBC Urine WBC Ur Epithelial Cells Urine Bacteria Salicylates Acetaminophen 03/05/18 13:30 WBC RBC Hgb Hct MCV MCH MCHC RDW Plt Count MPV Gran % Lymph % (Auto) [place] % (Auto) Eos % (Auto) Baso % (Auto) Gran # Lymph # (Auto) [place] # (Auto) Eos # (Auto) Baso # (Auto) Neutrophils % (Manual) Band Neutrophils % Lymphocytes % (Manual) Monocytes % (Manual) Eosinophils % (Manual) Metamyelocytes % Platelet Evaluation PT INR APTT pO2 234 H VBG pH 6.95 L* VBG pCO2 35.0 L VBG HCO3 7.7 L VBG Total CO2 8.8 L VBG O2 Sat (Calc) 98.9 H VBG Base Excess -23.7 L VBG Potassium 4.9 Sodium 127.0 L Chloride 86.0 L Glucose > 750 H* Lactate 8.7 H* FiO2 21.0 Potassium Carbon Dioxide Anion Gap BUN Creatinine Est GFR ( Amer) Est GFR (Non-Af Amer) POC Glucose (mg/dL) Random Glucose Serum Osmolality Calcium Magnesium Total Bilirubin AST ALT Alkaline Phosphatase Lactate Dehydrogenase Total Creatine Kinase Troponin I Total Protein Albumin Globulin Albumin/Globulin Ratio Venous Blood Potassium 4.9 Urine Color Urine Appearance Urine pH Ur Specific [place] Urine Protein Urine Glucose (UA) Urine Ketones Urine Blood Urine Nitrate Urine Bilirubin Urine Urobilinogen Ur Leukocyte Esterase Urine RBC Urine WBC Ur Epithelial Cells Urine Bacteria Salicylates Acetaminophen Addendum Addendum: 03/05/18 13:47 ICU Attending Addendum Patient seen and examined. Case reviewed on round with housestaff. Agree with resident note above with the following additions/exceptions 82 y o female PMhx HTN, HLD, CAD, DM2 admitted with lethargy and AMS. In the ED found to be in severe DKA BS > 900 pH 7.0. She also has ischemic changes on EKG with +TNI No sources of infection although she has sternotomy wire sticking out of her uppper chest. At this point will tx DKA with insulin drip bolus another 1L NS then run at 200cc/hr BMP with Ca MG Phos q 6hours change to d51/2NS once BS < 250 NPO for now from a cardiac perspective, likely demand ischemia from her blood being very viscous however it may also be the cause of her DKA. Will trend TNI, check Echo. cardio consulted Will not given ASA Yet, given her HB is lower than normal and she is likely hemoconcetrate so it may be even lower. Check stool guaic and repeat CBC F/u schmidt cultures ok with empiric abx for now Rest of care as above Jaclyn Castro MD Pulmonary Critical Care and Sleep Medicine
--- NOTE | 2018-03-05 11:08 | RAD ---
Date of service: 03/05/2018 HISTORY: Altered mental status COMPARISON: 10 18 FINDINGS: LUNGS: No active pulmonary disease. PLEURA: No significant pleural effusion identified, no pneumothorax apparent. CARDIOVASCULAR: Atherosclerotic calcifications identified primarily aortic arch. No radiographic findings to suggest acute or significant cardiovascular disease. Incidental Finding(s): Postoperative changes related to sternotomy. OSSEOUS STRUCTURES: No significant abnormalities. VISUALIZED UPPER ABDOMEN: Normal. OTHER FINDINGS: None. IMPRESSION: No active disease. No significant interval change compared to the prior examination(s).
--- NOTE | 2018-03-05 12:10 | CP.PCM.HP ---
<Nancy Gudino - Last Filed: 03/05/18 17:34> History of Present Illness - History of Present Illness History of Present Illness: Internal Medicine H&P for Dr. Atkinson CC: AMS Patient is an 82 yr old female with pmh HTN, HLD, DM, Breast Cancer (s/p lumpectomy in remission) and CABGx2 (1982 and 1995) presenting to [facility] ED as her daughter felt she sounded confused on the phone this AM. Upon going to check on her dughter found patient confused and with AMS. Patient states that she has been doing well since D/C in december but is not sure if she has been taking her insulin over the past few days. She is able to answer simple questions and denies being in any pain. She additionally denies DINH, f/c, CP, SOB, abdominal pain, n/v, bloody BM and extremity pain/weakness. 12 point ROS otherwise negative PMH: HTN, HLD, DM, Breast Cancer and CABGx2 (1982 and 1995) PSH: left breast Lumpectomy, CABG x2 Family Hx: denies All: nkda Social: denies x3 Home meds: ASA, lisinopril, insulin Lispro and Glargine, levothyroxine, simvastatin Present on Admission - Present on Admission Any Indicators Present on Admission: Yes History of Uncontrolled Diabetes: Yes Review of Systems - Review of Systems All systems: reviewed and no additional remarkable complaints except (as per HPI) Past Patient History - Infectious Disease Hx of Infectious Diseases: None - Past Social History Smoking Status: Never Smoked - CARDIAC Hx Cardiac Disorders: Yes Other/Comment: triple bypass - PULMONARY Hx Respiratory Disorders: No - NEUROLOGICAL Hx Neurological Disorder: No - HEENT Hx HEENT Problems: No - RENAL Hx Chronic Kidney Disease: No - ENDOCRINE/METABOLIC Hx Endocrine Disorders: Yes Hx Diabetes Mellitus Type 2: Yes - HEMATOLOGICAL/ONCOLOGICAL Hx Blood Disorders: No - INTEGUMENTARY Hx Dermatological Problems: No - MUSCULOSKELETAL/RHEUMATOLOGICAL Hx Musculoskeletal Disorders: No - GASTROINTESTINAL Hx Gastrointestinal Disorders: No - GENITOURINARY/GYNECOLOGICAL Hx Genitourinary Disorders: No - PSYCHIATRIC Hx Psychophysiologic Disorder: No Hx Substance Use: No - SURGICAL HISTORY Hx Open Heart Surgery: Yes (CABG x2) Other/Comment: breast Ca R lumphectomy - ANESTHESIA Hx Anesthesia: Yes Hx Anesthesia Reactions: No Hx Malignant Hyperthermia: No Meds Allergies/Adverse Reactions: Allergies Allergy/AdvReac Type Severity Reaction Status Date / Time No Known Allergies Allergy Verified 03/05/18 09:24 Physical Exam - Constitutional Appears: Well, Non-toxic, No Acute Distress - Head Exam Head Exam: ATRAUMATIC, NORMOCEPHALIC - Eye Exam Eye Exam: EOMI - ENT Exam ENT Exam: Mucous Membranes Dry - Respiratory Exam Respiratory Exam: NORMAL BREATHING PATTERN - Cardiovascular Exam Cardiovascular Exam: REGULAR RHYTHM Additional comments: small 0.5 cm x 0.5 cm wound clean and dry at superior border of sternotomy site, nontender, sternotomy wire protruding from area - GI/Abdominal Exam GI & Abdominal Exam: Soft. absent: Distended, Guarding, Tenderness - Extremities Exam Extremities exam: Positive for: pedal pulses present. Negative for: calf tenderness, tenderness - Neurological Exam Neurological exam: Alert Additional comments: somewhat oriented, knows month, not year, knows self and place - Psychiatric Exam Psychiatric exam: Normal Affect, Normal Mood - Skin Skin Exam: Dry, Intact, Normal Color, Warm Results - Vital Signs Recent Vital Signs: Last Vital Signs Temp 96.3 F L 03/05/18 11:00 Pulse 55 L 03/05/18 11:00 Resp 18 03/05/18 11:00 BP 91/32 L 03/05/18 11:00 Pulse Ox 100 03/05/18 11:00 - Labs Result Diagrams: 03/05/18 09:40 03/05/18 09:40 Labs: Laboratory Results - last 24 hr 03/05/18 03/05/18 03/05/18 09:30 09:37 09:40 WBC 15.2 H RBC 3.41 L Hgb 10.7 L D Hct 34.3 L MCV 100.6 D MCH 31.4 MCHC 31.2 RDW 14.5 Plt Count 276 MPV 9.6 Gran % 85.3 H Lymph % (Auto) 4.8 L Emery % (Auto) 9.7 H Eos % (Auto) 0.1 L Baso % (Auto) 0.1 Gran # 12.97 H Lymph # (Auto) 0.7 L Emery # (Auto) 1.5 H Eos # (Auto) 0.0 Baso # (Auto) 0.02 Neutrophils % (Manual) 86 H Band Neutrophils % 1 Lymphocytes % (Manual) 3 L Monocytes % (Manual) 7 H Eosinophils % (Manual) 1 Metamyelocytes % 2 Platelet Evaluation Normal PT INR APTT pO2 VBG pH VBG pCO2 VBG HCO3 VBG Total CO2 VBG O2 Sat (Calc) VBG Base Excess VBG Potassium Sodium Chloride Glucose Lactate FiO2 Potassium Carbon Dioxide Anion Gap BUN Creatinine Est GFR ( Amer) Est GFR (Non-Af Amer) Random Glucose Serum Osmolality Calcium Magnesium Total Bilirubin AST ALT Alkaline Phosphatase Lactate Dehydrogenase Total Creatine Kinase Troponin I Total Protein Albumin Globulin Albumin/Globulin Ratio Venous Blood Potassium Urine Color Light red Urine Appearance Slight-cloudy Urine pH 6.0 Ur Specific [place] 1.020 Urine Protein 100 H Urine Glucose (UA) >=1000 Urine Ketones 15 H Urine Blood Large H Urine Nitrate Negative Urine Bilirubin Small H Urine Urobilinogen 0.2 Ur Leukocyte Esterase Trace H Urine RBC Tntc Urine WBC 2 - 5 Ur Epithelial Cells 0 - 2 Urine Bacteria Mod Salicylates < 1 L Acetaminophen < 10.0 L 03/05/18 03/05/18 03/05/18 09:40 09:40 09:40 WBC RBC Hgb Hct MCV MCH MCHC RDW Plt Count MPV Gran % Lymph % (Auto) Emery % (Auto) Eos % (Auto) Baso % (Auto) Gran # Lymph # (Auto) Emery # (Auto) Eos # (Auto) Baso # (Auto) Neutrophils % (Manual) Band Neutrophils % Lymphocytes % (Manual) Monocytes % (Manual) Eosinophils % (Manual) Metamyelocytes % Platelet Evaluation PT 10.6 INR 0.92 APTT 21.0 L pO2 48 VBG pH 7.00 L* VBG pCO2 35.0 L VBG HCO3 8.6 L VBG Total CO2 9.7 L VBG O2 Sat (Calc) 78.5 H VBG Base Excess -21.9 L VBG Potassium 5.4 H Sodium 122 L 119.0 L* Chloride 85 L 83.0 L Glucose > 750 H* D Lactate 7.6 H* FiO2 21.0 Potassium 5.6 H* D Carbon Dioxide 9 L D Anion Gap 33 H BUN 45 H Creatinine 2.0 H Est GFR ( Amer) 29 Est GFR (Non-Af Amer) 24 Random Glucose 936 H* D Serum Osmolality Calcium 9.4 Magnesium 2.2 Total Bilirubin 1.8 H AST 178 H D ALT 104 H Alkaline Phosphatase 91 Lactate Dehydrogenase 682 Total Creatine Kinase 199 Troponin I 2.07 H* D Total Protein 6.5 Albumin 4.0 Globulin 2.5 Albumin/Globulin Ratio 1.6 Venous Blood Potassium 5.4 H Urine Color Urine Appearance Urine pH Ur Specific [place] Urine Protein Urine Glucose (UA) Urine Ketones Urine Blood Urine Nitrate Urine Bilirubin Urine Urobilinogen Ur Leukocyte Esterase Urine RBC Urine WBC Ur Epithelial Cells Urine Bacteria Salicylates Acetaminophen 03/05/18 09:40 WBC RBC Hgb Hct MCV MCH MCHC RDW Plt Count MPV Gran % Lymph % (Auto) Emery % (Auto) Eos % (Auto) Baso % (Auto) Gran # Lymph # (Auto) Emery # (Auto) Eos # (Auto) Baso # (Auto) Neutrophils % (Manual) Band Neutrophils % Lymphocytes % (Manual) Monocytes % (Manual) Eosinophils % (Manual) Metamyelocytes % Platelet Evaluation PT INR APTT pO2 VBG pH VBG pCO2 VBG HCO3 VBG Total CO2 VBG O2 Sat (Calc) VBG Base Excess VBG Potassium Sodium Chloride Glucose Lactate FiO2 Potassium Carbon Dioxide Anion Gap BUN Creatinine Est GFR ( Amer) Est GFR (Non-Af Amer) Random Glucose Serum Osmolality 326 H Calcium Magnesium Total Bilirubin AST ALT Alkaline Phosphatase Lactate Dehydrogenase Total Creatine Kinase Troponin I Total Protein Albumin Globulin Albumin/Globulin Ratio Venous Blood Potassium Urine Color Urine Appearance Urine pH Ur Specific [place] Urine Protein Urine Glucose (UA) Urine Ketones Urine Blood Urine Nitrate Urine Bilirubin Urine Urobilinogen Ur Leukocyte Esterase Urine RBC Urine WBC Ur Epithelial Cells Urine Bacteria Salicylates Acetaminophen Assessment & Plan - Assessment and Plan (Free Text) Assessment: 82 yr old female with DKA, positive trops in ED, new T wave inversions and RBBB on EKG Plan: AMS 2/2 DKA vs infection, possible UTI - Insulin drip, algorithm 3 - blood glucose checks Q1H - repeat CMP Q6 - monitor for gap closure - has recieved 4L NS bolus - IVF NS @200 Positive troponin, EKG changes - repeat trops Q6, will f/u - pt denying chest pain at this time - will hold ASA d/t FOBT + - repeat EKG in AM - Cardiology consulted, Dr. Garzon (known Patient) UTI - UA + for LE, WBC and bacteria - continue Empiric abx - afebrile, denies abdominal pain - repeat cbc in am Transaminitis: - likely 2/2 demand ischemia, will continue to monitor - will f/u repeat CMP - denying abd pain at this time Wound at superior sternotomy border - small clean dry wound with surrounding erythema at superior border of sternotomy with sternotomy wire protruding - nontender, no purulence no discharge - Wound culture Microcytic Anemia - Positive Guaiac in ED - stool occult blood ordered - pt denies gross blood in stool - no active bleeding - will hold ASA - last colonoscopy age 72 pt reports no abnormalities - will continue to reassess DVT: SCD Patient seen, examined and discussed with Dr. Demetrio Gudino, PGY 1 - Date & Time Date: 03/05/18 Time: 10:45 Decision To Admit - Pt Status Changed To: Hospital Disposition Of: Inpatient Admission - Admit Certification Admit to Inpatient:: After my assessment, the patient will require hospitalization for at least two midnights. This is because of the severity of symptoms shown, intensity of services needed, and/or the medical risk in this patient being treated as an outpatient. - . Bed Request Type: Critical Care Admitting Physician: Sadia Atkinson <Sadia Atkinson - Last Filed: 03/07/18 17:08> Results - Vital Signs Recent Vital Signs: Last Vital Signs Temp 98.4 F 03/07/18 16:00 Pulse 79 03/07/18 16:00 Resp 20 03/07/18 16:00 BP 105/47 L 03/07/18 16:00 Pulse Ox 97 03/07/18 16:00 - Labs Result Diagrams: 03/07/18 06:00 03/07/18 06:00 Labs: Laboratory Results - last 24 hr 03/06/18 03/06/18 03/06/18 05:30 11:15 15:50 WBC RBC Hgb Hct MCV MCH MCHC RDW Plt Count MPV Gran % Lymph % (Auto) Emery % (Auto) Eos % (Auto) Baso % (Auto) Gran # Lymph # (Auto) Emery # (Auto) Eos # (Auto) Baso # (Auto) APTT 73.0 H Sodium Potassium Chloride Carbon Dioxide Anion Gap BUN Creatinine Est GFR ( Amer) Est GFR (Non-Af Amer) POC Glucose (mg/dL) 152 H Random Glucose Hemoglobin A1c 9.7 H D Calcium Phosphorus Magnesium Total Bilirubin AST ALT Alkaline Phosphatase Lactate Dehydrogenase Troponin I Total Protein Albumin Globulin Albumin/Globulin Ratio 03/06/18 03/06/18 03/06/18 19:25 19:25 21:52 WBC 18.2 H RBC 3.51 Hgb 11.0 L Hct 31.9 L MCV 90.9 MCH 31.3 MCHC 34.5 RDW 14.4 Plt Count 198 MPV 9.1 Gran % 89.5 H Lymph % (Auto) 6.9 L Emery % (Auto) 3.6 Eos % (Auto) 0.0 L Baso % (Auto) 0.0 Gran # 16.28 H Lymph # (Auto) 1.3 Emery # (Auto) 0.7 H Eos # (Auto) 0.0 Baso # (Auto) 0.00 APTT Sodium 128 L Potassium 4.0 Chloride 106 Carbon Dioxide 17 L Anion Gap 9 L BUN 31 H Creatinine 1.2 Est GFR ( Amer) 52 Est GFR (Non-Af Amer) 43 POC Glucose (mg/dL) 242 H Random Glucose 256 H Hemoglobin A1c Calcium 8.3 L Phosphorus Magnesium Total Bilirubin 0.6 AST 392 H D ALT 249 H Alkaline Phosphatase 75 Lactate Dehydrogenase 1392 H Troponin I Total Protein 5.4 L Albumin 2.8 L Globulin 2.6 Albumin/Globulin Ratio 1.1 03/07/18 03/07/18 03/07/18 06:00 06:00 06:00 WBC 14.0 H D RBC 3.45 L Hgb 10.6 L Hct 31.3 L MCV 90.7 MCH 30.7 MCHC 33.9 RDW 14.5 Plt Count 187 MPV 9.2 Gran % 85.7 H Lymph % (Auto) 6.7 L Emery % (Auto) 7.5 H Eos % (Auto) 0.1 L Baso % (Auto) 0.0 Gran # 12.03 H Lymph # (Auto) 0.9 L Emery # (Auto) 1.1 H Eos # (Auto) 0.0 Baso # (Auto) 0.00 APTT 79.3 H Sodium 130 L Potassium 4.4 Chloride 108 H Carbon Dioxide 16 L Anion Gap 10 BUN 25 H Creatinine 0.9 Est GFR ( Amer) > 60 Est GFR (Non-Af Amer) > 60 POC Glucose (mg/dL) Random Glucose 218 H Hemoglobin A1c Calcium 8.3 L Phosphorus 2.7 Magnesium 1.8 Total Bilirubin AST ALT Alkaline Phosphatase Lactate Dehydrogenase Troponin I Total Protein Albumin Globulin Albumin/Globulin Ratio 03/07/18 03/07/18 08:22 10:00 WBC RBC Hgb Hct MCV MCH MCHC RDW Plt Count MPV Gran % Lymph % (Auto) Emery % (Auto) Eos % (Auto) Baso % (Auto) Gran # Lymph # (Auto) Emery # (Auto) Eos # (Auto) Baso # (Auto) APTT Sodium Potassium Chloride Carbon Dioxide Anion Gap BUN Creatinine Est GFR ( Amer) Est GFR (Non-Af Amer) POC Glucose (mg/dL) 244 H Random Glucose Hemoglobin A1c Calcium Phosphorus Magnesium Total Bilirubin AST ALT Alkaline Phosphatase Lactate Dehydrogenase Troponin I 12.80 H* D Total Protein Albumin Globulin Albumin/Globulin Ratio Attending/Attestation - Attestation I have personally seen and examined this patient.: Yes I have fully participated in the care of the patient.: Yes I have reviewed all pertinent clinical information: Yes Notes (Text): 03/07/18 17:06 attending note; Patient seen and examined with resident in ER. Patient's daughter by the bedside. Patient is currently confused. Not able to give complete history. Patient is an 82 year old female with pmh HTN, HLD, DM, Breast Cancer (s/p lumpectomy in remission) and CABGx2 (1982 and 1995) presenting to [facility] ED as her daughter felt she sounded confused on the phone this AM. DKA/ patient is dehydrated; started on IV fluids. Started on IV insulin drip. Elevated troponin with EKG changes; case discussed with warp trucker Dr. Rothman in detail by the ER attending. No acute intervention needed. Trend troponin. stool guaiac is positive; aspirin on hold. Hemoglobin dropped from previous admissions. Monitor closely. Case discussed with daughter in detail. Patient is DNI DNR. conservative management requested. the diagnosis, treatment plan discussed with patient in detail. We will follow up closely in ICU.
[2018-03-05 13:40] LABS: VENOUS BLOOD GAS BASE EXCESS -23.7 mmol/L (0.0-2.0); VENOUS BLOOD GAS PO2 234 mm/Hg (30-55); VENOUS BLOOD PH 6.95 (7.32-7.43)
[2018-03-05] MEDS: Sodium Chloride 0.9% 1,000 ML IV SCH ×3 (14:16→22:02)
[2018-03-05] MEDS: Piperacillin/Tazobact 3.375 gm 100 ML IVPB SCH ×2 (14:25→22:01)
[2018-03-05] MEDS ORDERED: Heparin25000 units/250ml 1/2NS 25,000 UNITS/250 ML BAG IV SCH (15:30)
--- NOTE | 2018-03-05 16:00 | CP.PCM.PN ---
Subjective - Date & Time of Evaluation Date of Evaluation: 03/05/18 (n) Time of Evaluation: 15:47 - Subjective Subjective: S: I did call Dr Garzon regarding elevated trop level from 2.07 to 8.88 currently. Patient also is FOBT positive, in DKA. Dr Garzon aked to do serial trop level q4h, EKG in AM, and to give metoprolol 25 BID if BP allows and stop anticoagulants as patient given patient's FOBT positive status. Patient is awake, confused and in NAD. She denied chest pain, palpitations, shortness of breath or any other complaints at the time of the exam. O: VS: BP 85/50, HR 76 O2 sat 97% on RA Gen: aptient is awake,confused, dry mucus membranes in NAD Heart: s1, s2, no murmur, no gallop Lung: CTA, B/L Abd: soft, NT, ND Ext: no edema, cyanosis. palpable pulses A/P: 89 y/o female admitted to ICU for DKA, elevated trops. -EKG stat ordered and showed -serial trops -EKG in AM -hold AC for positive FOBT -hold lopressor for low BP. can restart if BP permits -f/u with Dr Garzon as needed Srikanth Ahuja, DO,PGY1 Objective - Vital Signs/Intake and Output Vital Signs (last 24 hours): Temp Pulse Resp BP Pulse Ox 96.3 F L 55 L 18 91/32 L 100 03/05/18 11:00 03/05/18 11:00 03/05/18 11:00 03/05/18 11:00 03/05/18 11:00 Intake and Output: 03/05/18 03/05/18 06:59 18:59 Intake Total 10 Balance 10 - Medications Medications: Current Medications Aspirin (Aspirin Chewable) 81 mg PO DAILY OZZY Insulin Human Regular 100 (units/ Sodium Chloride) 100 mls @ 5.13 mls/hr IV .[id number] PRN; Protocol PRN Reason: TITRATE PER MD ORDER Last Titration: 03/05/18 13:48 Dose: 0.11 units/kg/hr, 6 mls/hr Sodium Chloride (Sodium Chloride 0.9%) 1,000 mls @ 200 mls/hr IV .Q5H OZZY Last Admin: 03/05/18 14:16 Dose: 200 mls/hr Vancomycin HCl (Vancomycin 1gm) 1 gm in 250 mls @ 167 mls/hr IVPB DAILY OZZY; Protocol Piperacillin Sod/Tazobactam Sod (Zosyn 3.375 In Ns 100ml) 100 mls @ 25 mls/hr IVPB Q8 OZZY; Protocol Stop: 03/06/18 01:59 Last Admin: 03/05/18 14:25 Dose: 25 mls/hr - Labs Labs: 03/05/18 09:40 03/05/18 09:40 PT 10.6 SECONDS (9.4-12.5) 03/05/18 09:40 INR 0.92 03/05/18 09:40 APTT 21.0 Seconds (25.1-36.5) L 03/05/18 09:40
[2018-03-05 17:38] LABS: ALB/GLOB RATIO 1.3 (1.1-1.8); CALCIUM 7.7 mg/dL (8.4-10.5)
[2018-03-05 18:15] LABS: TROPONIN I 32.6 ng/mL
--- NOTE | 2018-03-05 18:40 | CARD ---
APPROVED REPORT Date of service: 03/05/2018 EKG Measurement Heart [id number] <Conclusion> Normal sinus rhythm Right bundle branch block Nonspecific ST changes Abnormal ECG
--- NOTE | 2018-03-05 18:57 | CARD ---
APPROVED REPORT Date of service: 03/05/2018 EKG Measurement Heart [id number] <Conclusion> Sinus bradycardia Right bundle branch block Nonspecific ST changes, consider inferolateral ischemia Abnormal ECG
--- NOTE | 2018-03-05 18:57 | CARD ---
APPROVED REPORT Date of service: 03/05/2018 EKG Measurement Heart [id number] <Conclusion> Sinus bradycardia Right bundle branch block Possible septal infarct, age undetermined Nonspecific ST changes Abnormal ECG
--- NOTE | 2018-03-05 19:01 | CARD ---
APPROVED REPORT Date of service: 03/05/2018 EKG Measurement Heart [id number] <Conclusion> Sinus rhythm with fusion complexes Right bundle branch block T wave abnormality, consider inferolateral ischemia Abnormal ECG
[2018-03-05 19:22] LABS: ARTERIAL BLOOD GAS HCO3 13.8 mmol/L (21-28); ARTERIAL BLOOD GAS HEMOGLOBIN 9.5 g/dL (11.7-17.4); ARTERIAL BLOOD GAS O2 CAPACITY 13.2 mL/dl (16-24); ARTERIAL BLOOD GAS O2 CONTENT 12.6 ML/dl (15-23); ARTERIAL BLOOD GAS O2 SAT 95.5 % (95-98); ARTERIAL BLOOD GAS PCO2 28 mm/Hg (35-45); ARTERIAL BLOOD GAS TCO2 14.7 mmol.L (22-28)
[2018-03-05] MEDS: Heparin25000 units/250ml 1/2NS 25,000 UNITS/250 ML BAG IV SCH (19:55)
[2018-03-05] MEDS ORDERED: Piperacillin/Tazobact 3.375 gm 100 ML IVPB SCH (22:00)
[2018-03-05] MEDS ORDERED: Sodium Chloride 0.9% 500 ML IV STA (23:02)
[2018-03-06] MEDS ORDERED: NOREPINEPHRINE BIT/0.9 % NACL 4 MG/250 ML BAG IV PRN (00:47)
[2018-03-06 01:43] LABS: VENOUS BLOOD GAS BASE EXCESS -10.7 mmol/L (0.0-2.0); VENOUS BLOOD GAS PO2 32 mm/Hg (30-55); VENOUS BLOOD PH 7.18 (7.32-7.43)
[2018-03-06 01:51] LABS: BASO # 0.01 K/mm3 (0.0-2.0); BASO % 0.1 % (0.0-3.0); GRAN # 13.86 (1.4-6.5); GRAN % 82.5 % (50.0-68.0); HEMOGLOBIN 11.3 g/dL (12.0-16.0); LYMPH # 0.9 (1.2-3.4); LYMPH % 5.1 % (22.0-35.0); MEAN CORPUSCULAR HEMOGLOBIN 31.5 pg (25.0-35.0); MEAN CORPUSCULAR HGB CONC 34.8 g/dl (31.0-37.0); MEAN PLATELET VOLUME 9.3 fl (7.0-11.0); MONO # 2.1 (0.1-0.6); MONO % 12.3 % (1.0-6.0); RBC 3.59 10^6/uL (3.5-6.1); RED CELL DISTRIBUTION WIDTH 13.7 % (11.5-14.5); WHITE BLOOD COUNT 16.8 10^3/uL (4.5-11.0)
[2018-03-06 01:53] LABS: MEAN CELL VOLUME 90.5 fl (80.0-105.0)
[2018-03-06 02:16] LABS: ALB/GLOB RATIO 1.1 (1.1-1.8); ALBUMIN 2.8 g/dL (3.0-4.8); CALCIUM 7.9 mg/dL (8.4-10.5); TROPONIN I 68.9 ng/mL
[2018-03-06] MEDS ORDERED: Dextrose 5%/0.45% NS 1,000 ML IV SCH (03:00)
[2018-03-06 06:12] LABS: VENOUS BLOOD GAS BASE EXCESS -11.1 mmol/L (0.0-2.0); VENOUS BLOOD GAS PO2 51 mm/Hg (30-55); VENOUS BLOOD PH 7.24 (7.32-7.43)
[2018-03-06 06:28] LABS: ALB/GLOB RATIO 1.2 (1.1-1.8); ALBUMIN 2.9 g/dL (3.0-4.8); CALCIUM 7.9 mg/dL (8.4-10.5)
[2018-03-06 06:33] LABS: BASO # 0.02 K/mm3 (0.0-2.0); BASO % 0.1 % (0.0-3.0); GRAN # 18.46 (1.4-6.5); GRAN % 86.6 % (50.0-68.0); HEMOGLOBIN 11.6 g/dL (12.0-16.0); LYMPH # 0.9 (1.2-3.4); LYMPH % 4.4 % (22.0-35.0); MEAN CELL VOLUME 90.7 fl (80.0-105.0); MEAN CORPUSCULAR HEMOGLOBIN 30.8 pg (25.0-35.0); MEAN CORPUSCULAR HGB CONC 33.9 g/dl (31.0-37.0); MEAN PLATELET VOLUME 9.3 fl (7.0-11.0); MONO # 1.9 (0.1-0.6); MONO % 8.9 % (1.0-6.0); RBC 3.77 10^6/uL (3.5-6.1); RED CELL DISTRIBUTION WIDTH 13.8 % (11.5-14.5); WHITE BLOOD COUNT 21.3 10^3/uL (4.5-11.0)
[2018-03-06 06:40] LABS: FREE T4 1.56 ng/dL (0.78-2.19); T4 6.3 ug/dL (5.5-11.0)
[2018-03-06] MEDS: Levothyroxine 100 MCG TAB PO SCH (08:20)
--- NOTE | 2018-03-06 09:51 | CP.CCUPN ---
<Bessie Martin L - Last Filed: 03/06/18 14:38> CCU Subjective - Physician Review Subjective (Free Text): Resident Progress Note for ICU Patient examined at bedside. No acute events overnight. Patient's daughter is at bedside. Patient presented to be irritable and refused to answer questions. Critical Care Time Spent (in minutes): 35 CCU Objective - Vital Signs / Intake & Output Vital Signs (Last 4 hours): Vital Signs Pulse 03/06/18 06:00 74 Intake and Output (Last 8hrs): Intake & Output 03/05/18 03/06/18 03/06/18 22:59 06:59 14:59 Intake Total 3200 50 Output Total 100 100 Balance 3100 -50 Weight 120 lb Intake: IV 3200 50 Left Antecubital 3000 Right 200 Oral 0 0 Output: Urine 100 100 Urethral (Rollins) 100 100 Other: # Bowel Movements 0 0 - Physical Exam Head: Positive for: Atraumatic, Normocephalic Pupils: Positive for: PERRL Extroacular Muscles: Positive for: EOMI Conjunctiva: Positive for: Normal Mouth: Positive for: Moist Mucous Membranes Neck: Positive for: Normal Range of Motion. Negative for: JVD, Lymphadenopathy Respiratory/Chest: Positive for: Clear to Auscultation, Good Air Exchange. Negative for: Respiratory Distress, Accessory Muscle Use, Wheezes, Rales, Rhonchi Cardiovascular: Positive for: Regular Rate and Rhythm, Murmurs (systolic). Negative for: Rub, Gallop Abdomen: Positive for: Normal Bowel Sounds. Negative for: Tenderness, Distention, Guarding, Mass/Organomegaly Upper Extremity: Positive for: Normal Inspection, Normal ROM, NORMAL PULSES, Neurovascularly Intact, Capillary Refill < 2s. Negative for: Cyanosis, Edema Lower Extremity: Positive for: Normal Inspection, NORMAL PULSES, Normal ROM, Neurovascularly Intact, Capillary Refill < 2 s. Negative for: Edema, CALF TENDERNESS Neurological: Positive for: GCS=15, CN II-XII Intact, Speech Normal Skin: Positive for: Warm, Dry, Normal Color. Negative for: Rashes Psychiatric: Positive for: Alert, Oriented x 3 - Medications Active Medications: Active Medications Generic Name Dose Route Start Last Admin Trade Name Freq PRN Reason Stop Dose Admin Aspirin 81 mg 03/05/18 14:30 Aspirin Chewable PO DAILY OZZY Vancomycin HCl 1 gm in 250 mls @ 167 mls/hr 03/06/18 10:00 Vancomycin 1gm IVPB DAILY [facility] Protocol Insulin Human Regular 100 100 mls @ 5.44 mls/hr 03/05/18 17:17 03/05/18 20:05 units/ Sodium Chloride IV 0.29 units/kg/hr .[id number] PRN 16 mls/hr TITRATE PER PROTOCOL Administration Protocol 0.1 UNITS/KG/HR Heparin Sodium/Sodium Chloride 25,000 units in 250 mls @ 6.532 mls/hr 03/05/18 19:00 03/06/18 06:33 Heparin 05332 Units/250ml 1/2 Normal Saline IV 14 units/kg/hr .Q24H OZZY 7.62 mls/hr Titration Protocol 12 UNITS/KG/HR NOREPINEPHRINE BIT/0.9 % NACL 4 mg in 250 mls @ 15 mls/hr 03/06/18 00:47 Levophed 4 Mg/ 250 Ml Ns Premixed IV .[id number] PRN TITRATE PER MD ORDER Protocol 4 MCG/MIN Dextrose/Sodium Chloride 1,000 mls @ 100 mls/hr 03/06/18 03:00 Dextrose 5%/0.45% Ns 1000 Ml IV .Q10H OZZY Potassium Chloride 10 meq in 100 mls @ 50 mls/hr 03/06/18 07:30 03/06/18 08:20 Potassium Chloride 10 Meq/100 Ml IVPB 03/06/18 11:29 50 mls/hr Q2H OZZY Administration Piperacillin Sod/Tazobactam Sod 2.25 gm in 100 mls @ 100 mls/hr 03/06/18 09:45 Zosyn 2.25 Gm In 0.9% 100 Ml IVPB Q12 [facility] Protocol Levothyroxine Sodium 100 mcg 03/06/18 06:00 03/06/18 08:20 Synthroid PO 100 mcg 0600 [facility] Administration - Patient Studies Lab Studies: Microbiology Studies 03/05/18 13:30 Gram Stain - Final Chest Wound Culture - Preliminary NO GROWTH AFTER 24 HOURS 03/05/18 09:37 Urine Culture - Preliminary Urine,Clean Catch Gram Negative [facility]rid[facility] Lab Studies 03/06/18 03/06/18 03/06/18 Range/Units 09:32 08:44 07:28 WBC (4.5-11.0) 10^3/uL RBC (3.5-6.1) 10^6/uL Hgb (12.0-16.0) g/dL Hct (36.0-48.0) % MCV (80.0-105.0) fl MCH (25.0-35.0) pg MCHC (31.0-37.0) g/dl RDW (11.5-14.5) % Plt Count (120.0-450.0) 10^3/uL MPV (7.0-11.0) fl Gran % (50.0-68.0) % Lymph % (Auto) (22.0-35.0) % [place]bour % (Auto) (1.0-6.0) % Eos % (Auto) (1.5-5.0) % Baso % (Auto) (0.0-3.0) % Gran # (1.4-6.5) Lymph # (Auto) (1.2-3.4) [place]bour # (Auto) (0.1-0.6) Eos # (Auto) (0.0-0.7) Baso # (Auto) (0.0-2.0) K/mm3 Neutrophils % (Manual) (50.0-70.0) % Band Neutrophils % (0-2) % Lymphocytes % (Manual) (22.0-35.0) % Monocytes % (Manual) (1.0-6.0) % Eosinophils % (Manual) (0.0-3.0) % Metamyelocytes % % Platelet Evaluation (NORMAL) PT (9.4-12.5) SECONDS INR APTT (25.1-36.5) Seconds pCO2 (35-45) mm/Hg pO2 (30-55) mm/Hg HCO3 (21-28) mmol/L ABG pH (7.35-7.45) ABG Total CO2 (22-28) mmol.L ABG O2 Saturation (95-98) % ABG O2 Content (15-23) ML/dl ABG Base Excess (-2.0-3.0) mmol/L ABG Hemoglobin (11.7-17.4) g/dL ABG Carboxyhemoglobin (0.5-1.5) % POC ABG HHb (Measured) (0-5) % ABG Methemoglobin (0.0-3.0) % ABG O2 Capacity (16-24) mL/dl VBG pH (7.32-7.43) VBG pCO2 (40-60) VBG HCO3 (21-28) mmol/l VBG Total CO2 (22-28) mmol.L VBG O2 Sat (Calc) (40-65) % VBG Base Excess (0.0-2.0) mmol/L VBG Potassium (3.6-5.2) mmol/L Hgb O2 Saturation (95.0-98.0) % Sodium (132-148) mmol/L Chloride (98-107) mmol/L Glucose (65-105) mg/dl Lactate (0.7-2.1) mmol/L FiO2 % Potassium (3.6-5.0) mmol/L Carbon Dioxide (21-33) mmol/L Anion Gap (10-20) BUN (7-21) mg/dL Creatinine (0.7-1.2) mg/dl Est GFR ( Amer) Est GFR (Non-Af Amer) POC Glucose (mg/dL) 114 H 129 H 111 H (65-110) mg/dL Random Glucose (70-110) mg/dL Serum Osmolality (272-300) mosm/kg Calcium (8.4-10.5) mg/dL Phosphorus (2.5-4.5) mg/dL Magnesium (1.7-2.2) mg/dL Total Bilirubin (0.2-1.3) mg/dL AST (14-36) U/L ALT (7-56) U/L Alkaline Phosphatase (38-126) U/L Lactate Dehydrogenase (333-699) U/L Total Creatine Kinase (35-230) U/L Troponin I ng/mL Total Protein (5.8-8.3) g/dL Albumin (3.0-4.8) g/dL Globulin gm/dL Albumin/Globulin Ratio (1.1-1.8) Free T4 (0.78-2.19) ng/dL Thyroxine (T4) (5.5-11.0) ug/dL TSH 3rd Generation (0.46-4.68) mIU/mL Venous Blood Potassium (3.6-5.2) mmol/L Urine Color (YELLOW) Urine Appearance (CLEAR) Urine pH (4.7-8.0) Ur Specific Vendor (1.005-1.035) Urine Protein (<30 mg/dL) mg/dL Urine Glucose (UA) (NEGATIVE) mg/dL Urine Ketones (NEGATIVE) mg/dL Urine Blood (NEGATIVE) Urine Nitrate (NEGATIVE) Urine Bilirubin (NEGATIVE) Urine Urobilinogen (<1 E.U./dL) E.U./dL Ur Leukocyte Esterase (NEGATIVE) Aries/uL Urine RBC (0-2) /hpf Urine WBC (0-6) /hpf Ur Epithelial Cells (0-5) /hpf Urine Bacteria (NEG) Salicylates (2.0-20.0) mg/dL Acetaminophen (10.0-20.0) ug/ml B-Hydroxybutyrate (0.02-0.27) mM 03/06/18 03/06/18 03/06/18 Range/Units 06:28 05:30 05:30 WBC (4.5-11.0) 10^3/uL RBC (3.5-6.1) 10^6/uL Hgb (12.0-16.0) g/dL Hct (36.0-48.0) % MCV (80.0-105.0) fl MCH (25.0-35.0) pg MCHC (31.0-37.0) g/dl RDW (11.5-14.5) % Plt Count (120.0-450.0) 10^3/uL MPV (7.0-11.0) fl Gran % (50.0-68.0) % Lymph % (Auto) (22.0-35.0) % Barbour % (Auto) (1.0-6.0) % Eos % (Auto) (1.5-5.0) % Baso % (Auto) (0.0-3.0) % Gran # (1.4-6.5) Lymph # (Auto) (1.2-3.4) Barbour # (Auto) (0.1-0.6) Eos # (Auto) (0.0-0.7) Baso # (Auto) (0.0-2.0) K/mm3 Neutrophils % (Manual) (50.0-70.0) % Band Neutrophils % (0-2) % Lymphocytes % (Manual) (22.0-35.0) % Monocytes % (Manual) (1.0-6.0) % Eosinophils % (Manual) (0.0-3.0) % Metamyelocytes % % Platelet Evaluation (NORMAL) PT (9.4-12.5) SECONDS INR APTT (25.1-36.5) Seconds pCO2 (35-45) mm/Hg pO2 51 (30-55) mm/Hg HCO3 (21-28) mmol/L ABG pH (7.35-7.45) ABG Total CO2 (22-28) mmol.L ABG O2 Saturation (95-98) % ABG O2 Content (15-23) ML/dl ABG Base Excess (-2.0-3.0) mmol/L ABG Hemoglobin (11.7-17.4) g/dL ABG Carboxyhemoglobin (0.5-1.5) % POC ABG HHb (Measured) (0-5) % ABG Methemoglobin (0.0-3.0) % ABG O2 Capacity (16-24) mL/dl VBG pH 7.24 L (7.32-7.43) VBG pCO2 36.0 L (40-60) VBG HCO3 15.4 L (21-28) mmol/l VBG Total CO2 16.5 L (22-28) mmol.L VBG O2 Sat (Calc) 85.0 H (40-65) % VBG Base Excess -11.1 L (0.0-2.0) mmol/L VBG Potassium 3.2 L (3.6-5.2) mmol/L Hgb O2 Saturation (95.0-98.0) % Sodium 134.0 (132-148) mmol/L Chloride 104.0 (98-107) mmol/L Glucose 112 H (65-105) mg/dl Lactate 2.5 H (0.7-2.1) mmol/L FiO2 21.0 % Potassium (3.6-5.0) mmol/L Carbon Dioxide (21-33) mmol/L Anion Gap (10-20) BUN (7-21) mg/dL Creatinine (0.7-1.2) mg/dl Est GFR ( Amer) Est GFR (Non-Af Amer) POC Glucose (mg/dL) 159 H (65-110) mg/dL Random Glucose (70-110) mg/dL Serum Osmolality (272-300) mosm/kg Calcium (8.4-10.5) mg/dL Phosphorus (2.5-4.5) mg/dL Magnesium (1.7-2.2) mg/dL Total Bilirubin (0.2-1.3) mg/dL AST (14-36) U/L ALT (7-56) U/L Alkaline Phosphatase (38-126) U/L Lactate Dehydrogenase (333-699) U/L Total Creatine Kinase (35-230) U/L Troponin I ng/mL Total Protein (5.8-8.3) g/dL Albumin (3.0-4.8) g/dL Globulin gm/dL Albumin/Globulin Ratio (1.1-1.8) Free T4 1.56 (0.78-2.19) ng/dL Thyroxine (T4) 6.3 (5.5-11.0) ug/dL TSH 3rd Generation 2.87 (0.46-4.68) mIU/mL Venous Blood Potassium 3.2 L (3.6-5.2) mmol/L Urine Color (YELLOW) Urine Appearance (CLEAR) Urine pH (4.7-8.0) Ur Specific Vendor (1.005-1.035) Urine Protein (<30 mg/dL) mg/dL Urine Glucose (UA) (NEGATIVE) mg/dL Urine Ketones (NEGATIVE) mg/dL Urine Blood (NEGATIVE) Urine Nitrate (NEGATIVE) Urine Bilirubin (NEGATIVE) Urine Urobilinogen (<1 E.U./dL) E.U./dL Ur Leukocyte Esterase (NEGATIVE) Aries/uL Urine RBC (0-2) /hpf Urine WBC (0-6) /hpf Ur Epithelial Cells (0-5) /hpf Urine Bacteria (NEG) Salicylates (2.0-20.0) mg/dL Acetaminophen (10.0-20.0) ug/ml B-Hydroxybutyrate (0.02-0.27) mM 03/06/18 03/06/18 03/06/18 Range/Units 05:30 05:00 04:14 WBC 21.3 H D (4.5-11.0) 10^3/uL RBC 3.77 (3.5-6.1) 10^6/uL Hgb 11.6 L (12.0-16.0) g/dL Hct 34.2 L (36.0-48.0) % MCV 90.7 (80.0-105.0) fl MCH 30.8 (25.0-35.0) pg MCHC 33.9 (31.0-37.0) g/dl RDW 13.8 (11.5-14.5) % Plt Count 259 (120.0-450.0) 10^3/uL MPV 9.3 (7.0-11.0) fl Gran % 86.6 H (50.0-68.0) % Lymph % (Auto) 4.4 L (22.0-35.0) % Barbour % (Auto) 8.9 H (1.0-6.0) % Eos % (Auto) 0.0 L (1.5-5.0) % Baso % (Auto) 0.1 (0.0-3.0) % Gran # 18.46 H (1.4-6.5) Lymph # (Auto) 0.9 L (1.2-3.4) Barbour # (Auto) 1.9 H (0.1-0.6) Eos # (Auto) 0.0 (0.0-0.7) Baso # (Auto) 0.02 (0.0-2.0) K/mm3 Neutrophils % (Manual) (50.0-70.0) % Band Neutrophils % (0-2) % Lymphocytes % (Manual) (22.0-35.0) % Monocytes % (Manual) (1.0-6.0) % Eosinophils % (Manual) (0.0-3.0) % Metamyelocytes % % Platelet Evaluation (NORMAL) PT (9.4-12.5) SECONDS INR APTT (25.1-36.5) Seconds pCO2 (35-45) mm/Hg pO2 (30-55) mm/Hg HCO3 (21-28) mmol/L ABG pH (7.35-7.45) ABG Total CO2 (22-28) mmol.L ABG O2 Saturation (95-98) % ABG O2 Content (15-23) ML/dl ABG Base Excess (-2.0-3.0) mmol/L ABG Hemoglobin (11.7-17.4) g/dL ABG Carboxyhemoglobin (0.5-1.5) % POC ABG HHb (Measured) (0-5) % ABG Methemoglobin (0.0-3.0) % ABG O2 Capacity (16-24) mL/dl VBG pH (7.32-7.43) VBG pCO2 (40-60) VBG HCO3 (21-28) mmol/l VBG Total CO2 (22-28) mmol.L VBG O2 Sat (Calc) (40-65) % VBG Base Excess (0.0-2.0) mmol/L VBG Potassium (3.6-5.2) mmol/L Hgb O2 Saturation (95.0-98.0) % Sodium 131 L (132-148) mmol/L Chloride 109 H (98-107) mmol/L Glucose (65-105) mg/dl Lactate (0.7-2.1) mmol/L FiO2 % Potassium 3.5 L (3.6-5.0) mmol/L Carbon Dioxide 13 L (21-33) mmol/L Anion Gap 13 (10-20) BUN 40 H (7-21) mg/dL Creatinine 1.6 H (0.7-1.2) mg/dl Est GFR ( Amer) 38 Est GFR (Non-Af Amer) 31 POC Glucose (mg/dL) 127 H (65-110) mg/dL Random Glucose 106 (70-110) mg/dL Serum Osmolality (272-300) mosm/kg Calcium 7.9 L (8.4-10.5) mg/dL Phosphorus 3.4 (2.5-4.5) mg/dL Magnesium 1.7 (1.7-2.2) mg/dL Total Bilirubin 0.7 (0.2-1.3) mg/dL AST 519 H (14-36) U/L ALT 241 H (7-56) U/L Alkaline Phosphatase 66 (38-126) U/L Lactate Dehydrogenase (333-699) U/L Total Creatine Kinase (35-230) U/L Troponin I ng/mL Total Protein 5.3 L (5.8-8.3) g/dL Albumin 2.9 L (3.0-4.8) g/dL Globulin 2.4 gm/dL Albumin/Globulin Ratio 1.2 (1.1-1.8) Free T4 (0.78-2.19) ng/dL Thyroxine (T4) (5.5-11.0) ug/dL TSH 3rd Generation (0.46-4.68) mIU/mL Venous Blood Potassium (3.6-5.2) mmol/L Urine Color (YELLOW) Urine Appearance (CLEAR) Urine pH (4.7-8.0) Ur Specific Vendor (1.005-1.035) Urine Protein (<30 mg/dL) mg/dL Urine Glucose (UA) (NEGATIVE) mg/dL Urine Ketones (NEGATIVE) mg/dL Urine Blood (NEGATIVE) Urine Nitrate (NEGATIVE) Urine Bilirubin (NEGATIVE) Urine Urobilinogen (<1 E.U./dL) E.U./dL Ur Leukocyte Esterase (NEGATIVE) Aries/uL Urine RBC (0-2) /hpf Urine WBC (0-6) /hpf Ur Epithelial Cells (0-5) /hpf Urine Bacteria (NEG) Salicylates (2.0-20.0) mg/dL Acetaminophen (10.0-20.0) ug/ml B-Hydroxybutyrate (0.02-0.27) mM 03/06/18 03/06/18 03/06/18 Range/Units 02:36 01:30 01:30 WBC 16.8 H (4.5-11.0) 10^3/uL RBC 3.59 (3.5-6.1) 10^6/uL Hgb 11.3 L (12.0-16.0) g/dL Hct 32.5 L (36.0-48.0) % MCV 90.5 D (80.0-105.0) fl MCH 31.5 (25.0-35.0) pg MCHC 34.8 (31.0-37.0) g/dl RDW 13.7 (11.5-14.5) % Plt Count 231 (120.0-450.0) 10^3/uL MPV 9.3 (7.0-11.0) fl Gran % 82.5 H (50.0-68.0) % Lymph % (Auto) 5.1 L (22.0-35.0) % [place]bour % (Auto) 12.3 H (1.0-6.0) % Eos % (Auto) 0.0 L (1.5-5.0) % Baso % (Auto) 0.1 (0.0-3.0) % Gran # 13.86 H (1.4-6.5) Lymph # (Auto) 0.9 L (1.2-3.4) [place]bour # (Auto) 2.1 H (0.1-0.6) Eos # (Auto) 0.0 (0.0-0.7) Baso # (Auto) 0.01 (0.0-2.0) K/mm3 Neutrophils % (Manual) (50.0-70.0) % Band Neutrophils % (0-2) % Lymphocytes % (Manual) (22.0-35.0) % Monocytes % (Manual) (1.0-6.0) % Eosinophils % (Manual) (0.0-3.0) % Metamyelocytes % % Platelet Evaluation (NORMAL) PT (9.4-12.5) SECONDS INR APTT 47.4 H (25.1-36.5) Seconds pCO2 (35-45) mm/Hg pO2 (30-55) mm/Hg HCO3 (21-28) mmol/L ABG pH (7.35-7.45) ABG Total CO2 (22-28) mmol.L ABG O2 Saturation (95-98) % ABG O2 Content (15-23) ML/dl ABG Base Excess (-2.0-3.0) mmol/L ABG Hemoglobin (11.7-17.4) g/dL ABG Carboxyhemoglobin (0.5-1.5) % POC ABG HHb (Measured) (0-5) % ABG Methemoglobin (0.0-3.0) % ABG O2 Capacity (16-24) mL/dl VBG pH (7.32-7.43) VBG pCO2 (40-60) VBG HCO3 (21-28) mmol/l VBG Total CO2 (22-28) mmol.L VBG O2 Sat (Calc) (40-65) % VBG Base Excess (0.0-2.0) mmol/L VBG Potassium (3.6-5.2) mmol/L Hgb O2 Saturation (95.0-98.0) % Sodium (132-148) mmol/L Chloride (98-107) mmol/L Glucose (65-105) mg/dl Lactate (0.7-2.1) mmol/L FiO2 % Potassium (3.6-5.0) mmol/L Carbon Dioxide (21-33) mmol/L Anion Gap (10-20) BUN (7-21) mg/dL Creatinine (0.7-1.2) mg/dl Est GFR ( Amer) Est GFR (Non-Af Amer) POC Glucose (mg/dL) 146 H (65-110) mg/dL Random Glucose (70-110) mg/dL Serum Osmolality (272-300) mosm/kg Calcium (8.4-10.5) mg/dL Phosphorus (2.5-4.5) mg/dL Magnesium (1.7-2.2) mg/dL Total Bilirubin (0.2-1.3) mg/dL AST (14-36) U/L ALT (7-56) U/L Alkaline Phosphatase (38-126) U/L Lactate Dehydrogenase (333-699) U/L Total Creatine Kinase (35-230) U/L Troponin I ng/mL Total Protein (5.8-8.3) g/dL Albumin (3.0-4.8) g/dL Globulin gm/dL Albumin/Globulin Ratio (1.1-1.8) Free T4 (0.78-2.19) ng/dL Thyroxine (T4) (5.5-11.0) ug/dL TSH 3rd Generation (0.46-4.68) mIU/mL Venous Blood Potassium (3.6-5.2) mmol/L Urine Color (YELLOW) Urine Appearance (CLEAR) Urine pH (4.7-8.0) Ur Specific Vendor (1.005-1.035) Urine Protein (<30 mg/dL) mg/dL Urine Glucose (UA) (NEGATIVE) mg/dL Urine Ketones (NEGATIVE) mg/dL Urine Blood (NEGATIVE) Urine Nitrate (NEGATIVE) Urine Bilirubin (NEGATIVE) Urine Urobilinogen (<1 E.U./dL) E.U./dL Ur Leukocyte Esterase (NEGATIVE) Aries/uL Urine RBC (0-2) /hpf Urine WBC (0-6) /hpf Ur Epithelial Cells (0-5) /hpf Urine Bacteria (NEG) Salicylates (2.0-20.0) mg/dL Acetaminophen (10.0-20.0) ug/ml B-Hydroxybutyrate (0.02-0.27) mM 03/06/18 03/06/18 03/06/18 Range/Units 01:30 01:30 01:10 WBC (4.5-11.0) 10^3/uL RBC (3.5-6.1) 10^6/uL Hgb (12.0-16.0) g/dL Hct (36.0-48.0) % MCV (80.0-105.0) fl MCH (25.0-35.0) pg MCHC (31.0-37.0) g/dl RDW (11.5-14.5) % Plt Count (120.0-450.0) 10^3/uL MPV (7.0-11.0) fl Gran % (50.0-68.0) % Lymph % (Auto) (22.0-35.0) % [place] % (Auto) (1.0-6.0) % Eos % (Auto) (1.5-5.0) % Baso % (Auto) (0.0-3.0) % Gran # (1.4-6.5) Lymph # (Auto) (1.2-3.4) [place] # (Auto) (0.1-0.6) Eos # (Auto) (0.0-0.7) Baso # (Auto) (0.0-2.0) K/mm3 Neutrophils % (Manual) (50.0-70.0) % Band Neutrophils % (0-2) % Lymphocytes % (Manual) (22.0-35.0) % Monocytes % (Manual) (1.0-6.0) % Eosinophils % (Manual) (0.0-3.0) % Metamyelocytes % % Platelet Evaluation (NORMAL) PT (9.4-12.5) SECONDS INR APTT (25.1-36.5) Seconds pCO2 (35-45) mm/Hg pO2 32 (30-55) mm/Hg HCO3 (21-28) mmol/L ABG pH (7.35-7.45) ABG Total CO2 (22-28) mmol.L ABG O2 Saturation (95-98) % ABG O2 Content (15-23) ML/dl ABG Base Excess (-2.0-3.0) mmol/L ABG Hemoglobin (11.7-17.4) g/dL ABG Carboxyhemoglobin (0.5-1.5) % POC ABG HHb (Measured) (0-5) % ABG Methemoglobin (0.0-3.0) % ABG O2 Capacity (16-24) mL/dl VBG pH 7.18 L* (7.32-7.43) VBG pCO2 47.0 (40-60) VBG HCO3 17.5 L (21-28) mmol/l VBG Total CO2 18.9 L (22-28) mmol.L VBG O2 Sat (Calc) 62.2 (40-65) % VBG Base Excess -10.7 L (0.0-2.0) mmol/L VBG Potassium 3.3 L (3.6-5.2) mmol/L Hgb O2 Saturation (95.0-98.0) % Sodium 133 133.0 (132-148) mmol/L Chloride 107 103.0 (98-107) mmol/L Glucose 182 H (65-105) mg/dl Lactate 2.6 H (0.7-2.1) mmol/L FiO2 21.0 % Potassium 3.4 L (3.6-5.0) mmol/L Carbon Dioxide 18 L (21-33) mmol/L Anion Gap 12 (10-20) BUN 42 H (7-21) mg/dL Creatinine 1.7 H (0.7-1.2) mg/dl Est GFR ( Amer) 35 Est GFR (Non-Af Amer) 29 POC Glucose (mg/dL) 252 H (65-110) mg/dL Random Glucose 173 H (70-110) mg/dL Serum Osmolality (272-300) mosm/kg Calcium 7.9 L (8.4-10.5) mg/dL Phosphorus (2.5-4.5) mg/dL Magnesium (1.7-2.2) mg/dL Total Bilirubin 0.7 (0.2-1.3) mg/dL AST 542 H (14-36) U/L ALT 251 H (7-56) U/L Alkaline Phosphatase 67 (38-126) U/L Lactate Dehydrogenase (333-699) U/L Total Creatine Kinase (35-230) U/L Troponin I 68.90 H* D ng/mL Total Protein 5.3 L (5.8-8.3) g/dL Albumin 2.8 L (3.0-4.8) g/dL Globulin 2.5 gm/dL Albumin/Globulin Ratio 1.1 (1.1-1.8) Free T4 (0.78-2.19) ng/dL Thyroxine (T4) (5.5-11.0) ug/dL TSH 3rd Generation (0.46-4.68) mIU/mL Venous Blood Potassium 3.3 L (3.6-5.2) mmol/L Urine Color (YELLOW) Urine Appearance (CLEAR) Urine pH (4.7-8.0) Ur Specific Vendor (1.005-1.035) Urine Protein (<30 mg/dL) mg/dL Urine Glucose (UA) (NEGATIVE) mg/dL Urine Ketones (NEGATIVE) mg/dL Urine Blood (NEGATIVE) Urine Nitrate (NEGATIVE) Urine Bilirubin (NEGATIVE) Urine Urobilinogen (<1 E.U./dL) E.U./dL Ur Leukocyte Esterase (NEGATIVE) Aries/uL Urine RBC (0-2) /hpf Urine WBC (0-6) /hpf Ur Epithelial Cells (0-5) /hpf Urine Bacteria (NEG) Salicylates (2.0-20.0) mg/dL Acetaminophen (10.0-20.0) ug/ml B-Hydroxybutyrate (0.02-0.27) mM 03/05/18 03/05/18 03/05/18 Range/Units 23:44 21:56 21:16 WBC (4.5-11.0) 10^3/uL RBC (3.5-6.1) 10^6/uL Hgb (12.0-16.0) g/dL Hct (36.0-48.0) % MCV (80.0-105.0) fl MCH (25.0-35.0) pg MCHC (31.0-37.0) g/dl RDW (11.5-14.5) % Plt Count (120.0-450.0) 10^3/uL MPV (7.0-11.0) fl Gran % (50.0-68.0) % Lymph % (Auto) (22.0-35.0) % [place]bour % (Auto) (1.0-6.0) % Eos % (Auto) (1.5-5.0) % Baso % (Auto) (0.0-3.0) % Gran # (1.4-6.5) Lymph # (Auto) (1.2-3.4) Barbour # (Auto) (0.1-0.6) Eos # (Auto) (0.0-0.7) Baso # (Auto) (0.0-2.0) K/mm3 Neutrophils % (Manual) (50.0-70.0) % Band Neutrophils % (0-2) % Lymphocytes % (Manual) (22.0-35.0) % Monocytes % (Manual) (1.0-6.0) % Eosinophils % (Manual) (0.0-3.0) % Metamyelocytes % % Platelet Evaluation (NORMAL) PT (9.4-12.5) SECONDS INR APTT (25.1-36.5) Seconds pCO2 (35-45) mm/Hg pO2 (30-55) mm/Hg HCO3 (21-28) mmol/L ABG pH (7.35-7.45) ABG Total CO2 (22-28) mmol.L ABG O2 Saturation (95-98) % ABG O2 Content (15-23) ML/dl ABG Base Excess (-2.0-3.0) mmol/L ABG Hemoglobin (11.7-17.4) g/dL ABG Carboxyhemoglobin (0.5-1.5) % POC ABG HHb (Measured) (0-5) % ABG Methemoglobin (0.0-3.0) % ABG O2 Capacity (16-24) mL/dl VBG pH (7.32-7.43) VBG pCO2 (40-60) VBG HCO3 (21-28) mmol/l VBG Total CO2 (22-28) mmol.L VBG O2 Sat (Calc) (40-65) % VBG Base Excess (0.0-2.0) mmol/L VBG Potassium (3.6-5.2) mmol/L Hgb O2 Saturation (95.0-98.0) % Sodium (132-148) mmol/L Chloride (98-107) mmol/L Glucose (65-105) mg/dl Lactate (0.7-2.1) mmol/L FiO2 % Potassium (3.6-5.0) mmol/L Carbon Dioxide (21-33) mmol/L Anion Gap (10-20) BUN (7-21) mg/dL Creatinine (0.7-1.2) mg/dl Est GFR ( Amer) Est GFR (Non-Af Amer) POC Glucose (mg/dL) 306 H 341 H 433 H* (65-110) mg/dL Random Glucose (70-110) mg/dL Serum Osmolality (272-300) mosm/kg Calcium (8.4-10.5) mg/dL Phosphorus (2.5-4.5) mg/dL Magnesium (1.7-2.2) mg/dL Total Bilirubin (0.2-1.3) mg/dL AST (14-36) U/L ALT (7-56) U/L Alkaline Phosphatase (38-126) U/L Lactate Dehydrogenase (333-699) U/L Total Creatine Kinase (35-230) U/L Troponin I ng/mL Total Protein (5.8-8.3) g/dL Albumin (3.0-4.8) g/dL Globulin gm/dL Albumin/Globulin Ratio (1.1-1.8) Free T4 (0.78-2.19) ng/dL Thyroxine (T4) (5.5-11.0) ug/dL TSH 3rd Generation (0.46-4.68) mIU/mL Venous Blood Potassium (3.6-5.2) mmol/L Urine Color (YELLOW) Urine Appearance (CLEAR) Urine pH (4.7-8.0) Ur Specific Vendor (1.005-1.035) Urine Protein (<30 mg/dL) mg/dL Urine Glucose (UA) (NEGATIVE) mg/dL Urine Ketones (NEGATIVE) mg/dL Urine Blood (NEGATIVE) Urine Nitrate (NEGATIVE) Urine Bilirubin (NEGATIVE) Urine Urobilinogen (<1 E.U./dL) E.U./dL Ur Leukocyte Esterase (NEGATIVE) Aries/uL Urine RBC (0-2) /hpf Urine WBC (0-6) /hpf Ur Epithelial Cells (0-5) /hpf Urine Bacteria (NEG) Salicylates (2.0-20.0) mg/dL Acetaminophen (10.0-20.0) ug/ml B-Hydroxybutyrate (0.02-0.27) mM 03/05/18 03/05/18 03/05/18 Range/Units 20:09 19:19 19:03 WBC (4.5-11.0) 10^3/uL RBC (3.5-6.1) 10^6/uL Hgb (12.0-16.0) g/dL Hct (36.0-48.0) % MCV (80.0-105.0) fl MCH (25.0-35.0) pg MCHC (31.0-37.0) g/dl RDW (11.5-14.5) % Plt Count (120.0-450.0) 10^3/uL MPV (7.0-11.0) fl Gran % (50.0-68.0) % Lymph % (Auto) (22.0-35.0) % [place] % (Auto) (1.0-6.0) % Eos % (Auto) (1.5-5.0) % Baso % (Auto) (0.0-3.0) % Gran # (1.4-6.5) Lymph # (Auto) (1.2-3.4) [place] # (Auto) (0.1-0.6) Eos # (Auto) (0.0-0.7) Baso # (Auto) (0.0-2.0) K/mm3 Neutrophils % (Manual) (50.0-70.0) % Band Neutrophils % (0-2) % Lymphocytes % (Manual) (22.0-35.0) % Monocytes % (Manual) (1.0-6.0) % Eosinophils % (Manual) (0.0-3.0) % Metamyelocytes % % Platelet Evaluation (NORMAL) PT (9.4-12.5) SECONDS INR APTT (25.1-36.5) Seconds pCO2 28 L (35-45) mm/Hg pO2 65.0 L (30-55) mm/Hg HCO3 13.8 L (21-28) mmol/L ABG pH 7.30 L (7.35-7.45) ABG Total CO2 14.7 L (22-28) mmol.L ABG O2 Saturation 95.5 (95-98) % ABG O2 Content 12.6 L (15-23) ML/dl ABG Base Excess -11.4 L (-2.0-3.0) mmol/L ABG Hemoglobin 9.5 L (11.7-17.4) g/dL ABG Carboxyhemoglobin 0.9 (0.5-1.5) % POC ABG HHb (Measured) 4.4 (0-5) % ABG Methemoglobin 0.8 (0.0-3.0) % ABG O2 Capacity 13.2 L (16-24) mL/dl VBG pH (7.32-7.43) VBG pCO2 (40-60) VBG HCO3 (21-28) mmol/l VBG Total CO2 (22-28) mmol.L VBG O2 Sat (Calc) (40-65) % VBG Base Excess (0.0-2.0) mmol/L VBG Potassium (3.6-5.2) mmol/L Hgb O2 Saturation 93.8 L (95.0-98.0) % Sodium (132-148) mmol/L Chloride (98-107) mmol/L Glucose (65-105) mg/dl Lactate (0.7-2.1) mmol/L FiO2 21.0 % Potassium (3.6-5.0) mmol/L Carbon Dioxide (21-33) mmol/L Anion Gap (10-20) BUN (7-21) mg/dL Creatinine (0.7-1.2) mg/dl Est GFR ( Amer) Est GFR (Non-Af Amer) POC Glucose (mg/dL) > 500 H* > 500 H* (65-110) mg/dL Random Glucose (70-110) mg/dL Serum Osmolality (272-300) mosm/kg Calcium (8.4-10.5) mg/dL Phosphorus (2.5-4.5) mg/dL Magnesium (1.7-2.2) mg/dL Total Bilirubin (0.2-1.3) mg/dL AST (14-36) U/L ALT (7-56) U/L Alkaline Phosphatase (38-126) U/L Lactate Dehydrogenase (333-699) U/L Total Creatine Kinase (35-230) U/L Troponin I ng/mL Total Protein (5.8-8.3) g/dL Albumin (3.0-4.8) g/dL Globulin gm/dL Albumin/Globulin Ratio (1.1-1.8) Free T4 (0.78-2.19) ng/dL Thyroxine (T4) (5.5-11.0) ug/dL TSH 3rd Generation (0.46-4.68) mIU/mL Venous Blood Potassium (3.6-5.2) mmol/L Urine Color (YELLOW) Urine Appearance (CLEAR) Urine pH (4.7-8.0) Ur Specific Vendor (1.005-1.035) Urine Protein (<30 mg/dL) mg/dL Urine Glucose (UA) (NEGATIVE) mg/dL Urine Ketones (NEGATIVE) mg/dL Urine Blood (NEGATIVE) Urine Nitrate (NEGATIVE) Urine Bilirubin (NEGATIVE) Urine Urobilinogen (<1 E.U./dL) E.U./dL Ur Leukocyte Esterase (NEGATIVE) Aries/uL Urine RBC (0-2) /hpf Urine WBC (0-6) /hpf Ur Epithelial Cells (0-5) /hpf Urine Bacteria (NEG) Salicylates (2.0-20.0) mg/dL Acetaminophen (10.0-20.0) ug/ml B-Hydroxybutyrate (0.02-0.27) mM 03/05/18 03/05/18 03/05/18 Range/Units 18:08 17:22 17:16 WBC (4.5-11.0) 10^3/uL RBC (3.5-6.1) 10^6/uL Hgb (12.0-16.0) g/dL Hct (36.0-48.0) % MCV (80.0-105.0) fl MCH (25.0-35.0) pg MCHC (31.0-37.0) g/dl RDW (11.5-14.5) % Plt Count (120.0-450.0) 10^3/uL MPV (7.0-11.0) fl Gran % (50.0-68.0) % Lymph % (Auto) (22.0-35.0) % [place] % (Auto) (1.0-6.0) % Eos % (Auto) (1.5-5.0) % Baso % (Auto) (0.0-3.0) % Gran # (1.4-6.5) Lymph # (Auto) (1.2-3.4) [place] # (Auto) (0.1-0.6) Eos # (Auto) (0.0-0.7) Baso # (Auto) (0.0-2.0) K/mm3 Neutrophils % (Manual) (50.0-70.0) % Band Neutrophils % (0-2) % Lymphocytes % (Manual) (22.0-35.0) % Monocytes % (Manual) (1.0-6.0) % Eosinophils % (Manual) (0.0-3.0) % Metamyelocytes % % Platelet Evaluation (NORMAL) PT (9.4-12.5) SECONDS INR APTT (25.1-36.5) Seconds pCO2 (35-45) mm/Hg pO2 (30-55) mm/Hg HCO3 (21-28) mmol/L ABG pH (7.35-7.45) ABG Total CO2 (22-28) mmol.L ABG O2 Saturation (95-98) % ABG O2 Content (15-23) ML/dl ABG Base Excess (-2.0-3.0) mmol/L ABG Hemoglobin (11.7-17.4) g/dL ABG Carboxyhemoglobin (0.5-1.5) % POC ABG HHb (Measured) (0-5) % ABG Methemoglobin (0.0-3.0) % ABG O2 Capacity (16-24) mL/dl VBG pH (7.32-7.43) VBG pCO2 (40-60) VBG HCO3 (21-28) mmol/l VBG Total CO2 (22-28) mmol.L VBG O2 Sat (Calc) (40-65) % VBG Base Excess (0.0-2.0) mmol/L VBG Potassium (3.6-5.2) mmol/L Hgb O2 Saturation (95.0-98.0) % Sodium 126 L (132-148) mmol/L Chloride 98 (98-107) mmol/L Glucose (65-105) mg/dl Lactate (0.7-2.1) mmol/L FiO2 % Potassium 4.1 (3.6-5.0) mmol/L Carbon Dioxide 13 L (21-33) mmol/L Anion Gap 18 (10-20) BUN 46 H (7-21) mg/dL Creatinine 1.9 H (0.7-1.2) mg/dl Est GFR ( Amer) 31 Est GFR (Non-Af Amer) 25 POC Glucose (mg/dL) > 500 H* > 500 H* (65-110) mg/dL Random Glucose 601 H* D (70-110) mg/dL Serum Osmolality (272-300) mosm/kg Calcium 7.7 L (8.4-10.5) mg/dL Phosphorus (2.5-4.5) mg/dL Magnesium (1.7-2.2) mg/dL Total Bilirubin 1.3 (0.2-1.3) mg/dL AST 460 H D (14-36) U/L ALT 215 H (7-56) U/L Alkaline Phosphatase 69 (38-126) U/L Lactate Dehydrogenase (333-699) U/L Total Creatine Kinase (35-230) U/L Troponin I 32.60 H* D ng/mL Total Protein 5.2 L (5.8-8.3) g/dL Albumin 3.0 (3.0-4.8) g/dL Globulin 2.3 gm/dL Albumin/Globulin Ratio 1.3 (1.1-1.8) Free T4 (0.78-2.19) ng/dL Thyroxine (T4) (5.5-11.0) ug/dL TSH 3rd Generation (0.46-4.68) mIU/mL Venous Blood Potassium (3.6-5.2) mmol/L Urine Color (YELLOW) Urine Appearance (CLEAR) Urine pH (4.7-8.0) Ur Specific Vendor (1.005-1.035) Urine Protein (<30 mg/dL) mg/dL Urine Glucose (UA) (NEGATIVE) mg/dL Urine Ketones (NEGATIVE) mg/dL Urine Blood (NEGATIVE) Urine Nitrate (NEGATIVE) Urine Bilirubin (NEGATIVE) Urine Urobilinogen (<1 E.U./dL) E.U./dL Ur Leukocyte Esterase (NEGATIVE) Aries/uL Urine RBC (0-2) /hpf Urine WBC (0-6) /hpf Ur Epithelial Cells (0-5) /hpf Urine Bacteria (NEG) Salicylates (2.0-20.0) mg/dL Acetaminophen (10.0-20.0) ug/ml B-Hydroxybutyrate (0.02-0.27) mM 03/05/18 03/05/18 03/05/18 Range/Units 16:36 14:55 13:42 WBC (4.5-11.0) 10^3/uL RBC (3.5-6.1) 10^6/uL Hgb (12.0-16.0) g/dL Hct (36.0-48.0) % MCV (80.0-105.0) fl MCH (25.0-35.0) pg MCHC (31.0-37.0) g/dl RDW (11.5-14.5) % Plt Count (120.0-450.0) 10^3/uL MPV (7.0-11.0) fl Gran % (50.0-68.0) % Lymph % (Auto) (22.0-35.0) % [place] % (Auto) (1.0-6.0) % Eos % (Auto) (1.5-5.0) % Baso % (Auto) (0.0-3.0) % Gran # (1.4-6.5) Lymph # (Auto) (1.2-3.4) [place] # (Auto) (0.1-0.6) Eos # (Auto) (0.0-0.7) Baso # (Auto) (0.0-2.0) K/mm3 Neutrophils % (Manual) (50.0-70.0) % Band Neutrophils % (0-2) % Lymphocytes % (Manual) (22.0-35.0) % Monocytes % (Manual) (1.0-6.0) % Eosinophils % (Manual) (0.0-3.0) % Metamyelocytes % % Platelet Evaluation (NORMAL) PT (9.4-12.5) SECONDS INR APTT (25.1-36.5) Seconds pCO2 (35-45) mm/Hg pO2 (30-55) mm/Hg HCO3 (21-28) mmol/L ABG pH (7.35-7.45) ABG Total CO2 (22-28) mmol.L ABG O2 Saturation (95-98) % ABG O2 Content (15-23) ML/dl ABG Base Excess (-2.0-3.0) mmol/L ABG Hemoglobin (11.7-17.4) g/dL ABG Carboxyhemoglobin (0.5-1.5) % POC ABG HHb (Measured) (0-5) % ABG Methemoglobin (0.0-3.0) % ABG O2 Capacity (16-24) mL/dl VBG pH (7.32-7.43) VBG pCO2 (40-60) VBG HCO3 (21-28) mmol/l VBG Total CO2 (22-28) mmol.L VBG O2 Sat (Calc) (40-65) % VBG Base Excess (0.0-2.0) mmol/L VBG Potassium (3.6-5.2) mmol/L Hgb O2 Saturation (95.0-98.0) % Sodium (132-148) mmol/L Chloride (98-107) mmol/L Glucose (65-105) mg/dl Lactate (0.7-2.1) mmol/L FiO2 % Potassium (3.6-5.0) mmol/L Carbon Dioxide (21-33) mmol/L Anion Gap (10-20) BUN (7-21) mg/dL Creatinine (0.7-1.2) mg/dl Est GFR ( Amer) Est GFR (Non-Af Amer) POC Glucose (mg/dL) > 500 H* > 500 H* > 500 H* (65-110) mg/dL Random Glucose (70-110) mg/dL Serum Osmolality (272-300) mosm/kg Calcium (8.4-10.5) mg/dL Phosphorus (2.5-4.5) mg/dL Magnesium (1.7-2.2) mg/dL Total Bilirubin (0.2-1.3) mg/dL AST (14-36) U/L ALT (7-56) U/L Alkaline Phosphatase (38-126) U/L Lactate Dehydrogenase (333-699) U/L Total Creatine Kinase (35-230) U/L Troponin I ng/mL Total Protein (5.8-8.3) g/dL Albumin (3.0-4.8) g/dL Globulin gm/dL Albumin/Globulin Ratio (1.1-1.8) Free T4 (0.78-2.19) ng/dL Thyroxine (T4) (5.5-11.0) ug/dL TSH 3rd Generation (0.46-4.68) mIU/mL Venous Blood Potassium (3.6-5.2) mmol/L Urine Color (YELLOW) Urine Appearance (CLEAR) Urine pH (4.7-8.0) Ur Specific Vendor (1.005-1.035) Urine Protein (<30 mg/dL) mg/dL Urine Glucose (UA) (NEGATIVE) mg/dL Urine Ketones (NEGATIVE) mg/dL Urine Blood (NEGATIVE) Urine Nitrate (NEGATIVE) Urine Bilirubin (NEGATIVE) Urine Urobilinogen (<1 E.U./dL) E.U./dL Ur Leukocyte Esterase (NEGATIVE) Aries/uL Urine RBC (0-2) /hpf Urine WBC (0-6) /hpf Ur Epithelial Cells (0-5) /hpf Urine Bacteria (NEG) Salicylates (2.0-20.0) mg/dL Acetaminophen (10.0-20.0) ug/ml B-Hydroxybutyrate (0.02-0.27) mM 03/05/18 03/05/18 03/05/18 Range/Units 13:30 12:45 09:40 WBC (4.5-11.0) 10^3/uL RBC (3.5-6.1) 10^6/uL Hgb (12.0-16.0) g/dL Hct (36.0-48.0) % MCV (80.0-105.0) fl MCH (25.0-35.0) pg MCHC (31.0-37.0) g/dl RDW (11.5-14.5) % Plt Count (120.0-450.0) 10^3/uL MPV (7.0-11.0) fl Gran % (50.0-68.0) % Lymph % (Auto) (22.0-35.0) % [place] % (Auto) (1.0-6.0) % Eos % (Auto) (1.5-5.0) % Baso % (Auto) (0.0-3.0) % Gran # (1.4-6.5) Lymph # (Auto) (1.2-3.4) [place] # (Auto) (0.1-0.6) Eos # (Auto) (0.0-0.7) Baso # (Auto) (0.0-2.0) K/mm3 Neutrophils % (Manual) (50.0-70.0) % Band Neutrophils % (0-2) % Lymphocytes % (Manual) (22.0-35.0) % Monocytes % (Manual) (1.0-6.0) % Eosinophils % (Manual) (0.0-3.0) % Metamyelocytes % % Platelet Evaluation (NORMAL) PT (9.4-12.5) SECONDS INR APTT (25.1-36.5) Seconds pCO2 (35-45) mm/Hg pO2 234 H (30-55) mm/Hg HCO3 (21-28) mmol/L ABG pH (7.35-7.45) ABG Total CO2 (22-28) mmol.L ABG O2 Saturation (95-98) % ABG O2 Content (15-23) ML/dl ABG Base Excess (-2.0-3.0) mmol/L ABG Hemoglobin (11.7-17.4) g/dL ABG Carboxyhemoglobin (0.5-1.5) % POC ABG HHb (Measured) (0-5) % ABG Methemoglobin (0.0-3.0) % ABG O2 Capacity (16-24) mL/dl VBG pH 6.95 L* (7.32-7.43) VBG pCO2 35.0 L (40-60) VBG HCO3 7.7 L (21-28) mmol/l VBG Total CO2 8.8 L (22-28) mmol.L VBG O2 Sat (Calc) 98.9 H (40-65) % VBG Base Excess -23.7 L (0.0-2.0) mmol/L VBG Potassium 4.9 (3.6-5.2) mmol/L Hgb O2 Saturation (95.0-98.0) % Sodium 127.0 L (132-148) mmol/L Chloride 86.0 L (98-107) mmol/L Glucose > 750 H* (65-105) mg/dl Lactate 8.7 H* (0.7-2.1) mmol/L FiO2 21.0 % Potassium (3.6-5.0) mmol/L Carbon Dioxide (21-33) mmol/L Anion Gap (10-20) BUN (7-21) mg/dL Creatinine (0.7-1.2) mg/dl Est GFR ( Amer) Est GFR (Non-Af Amer) POC Glucose (mg/dL) (65-110) mg/dL Random Glucose (70-110) mg/dL Serum Osmolality 326 H (272-300) mosm/kg Calcium (8.4-10.5) mg/dL Phosphorus (2.5-4.5) mg/dL Magnesium (1.7-2.2) mg/dL Total Bilirubin (0.2-1.3) mg/dL AST (14-36) U/L ALT (7-56) U/L Alkaline Phosphatase (38-126) U/L Lactate Dehydrogenase (333-699) U/L Total Creatine Kinase (35-230) U/L Troponin I 8.88 H* D ng/mL Total Protein (5.8-8.3) g/dL Albumin (3.0-4.8) g/dL Globulin gm/dL Albumin/Globulin Ratio (1.1-1.8) Free T4 (0.78-2.19) ng/dL Thyroxine (T4) (5.5-11.0) ug/dL TSH 3rd Generation (0.46-4.68) mIU/mL Venous Blood Potassium 4.9 (3.6-5.2) mmol/L Urine Color (YELLOW) Urine Appearance (CLEAR) Urine pH (4.7-8.0) Ur Specific Vendor (1.005-1.035) Urine Protein (<30 mg/dL) mg/dL Urine Glucose (UA) (NEGATIVE) mg/dL Urine Ketones (NEGATIVE) mg/dL Urine Blood (NEGATIVE) Urine Nitrate (NEGATIVE) Urine Bilirubin (NEGATIVE) Urine Urobilinogen (<1 E.U./dL) E.U./dL Ur Leukocyte Esterase (NEGATIVE) Aries/uL Urine RBC (0-2) /hpf Urine WBC (0-6) /hpf Ur Epithelial Cells (0-5) /hpf Urine Bacteria (NEG) Salicylates (2.0-20.0) mg/dL Acetaminophen (10.0-20.0) ug/ml B-Hydroxybutyrate (0.02-0.27) mM 03/05/18 03/05/18 03/05/18 Range/Units 09:40 09:40 09:40 WBC (4.5-11.0) 10^3/uL RBC (3.5-6.1) 10^6/uL Hgb (12.0-16.0) g/dL Hct (36.0-48.0) % MCV (80.0-105.0) fl MCH (25.0-35.0) pg MCHC (31.0-37.0) g/dl RDW (11.5-14.5) % Plt Count (120.0-450.0) 10^3/uL MPV (7.0-11.0) fl Gran % (50.0-68.0) % Lymph % (Auto) (22.0-35.0) % [place] % (Auto) (1.0-6.0) % Eos % (Auto) (1.5-5.0) % Baso % (Auto) (0.0-3.0) % Gran # (1.4-6.5) Lymph # (Auto) (1.2-3.4) [place] # (Auto) (0.1-0.6) Eos # (Auto) (0.0-0.7) Baso # (Auto) (0.0-2.0) K/mm3 Neutrophils % (Manual) (50.0-70.0) % Band Neutrophils % (0-2) % Lymphocytes % (Manual) (22.0-35.0) % Monocytes % (Manual) (1.0-6.0) % Eosinophils % (Manual) (0.0-3.0) % Metamyelocytes % % Platelet Evaluation (NORMAL) PT 10.6 (9.4-12.5) SECONDS INR 0.92 APTT 21.0 L (25.1-36.5) Seconds pCO2 (35-45) mm/Hg pO2 48 (30-55) mm/Hg HCO3 (21-28) mmol/L ABG pH (7.35-7.45) ABG Total CO2 (22-28) mmol.L ABG O2 Saturation (95-98) % ABG O2 Content (15-23) ML/dl ABG Base Excess (-2.0-3.0) mmol/L ABG Hemoglobin (11.7-17.4) g/dL ABG Carboxyhemoglobin (0.5-1.5) % POC ABG HHb (Measured) (0-5) % ABG Methemoglobin (0.0-3.0) % ABG O2 Capacity (16-24) mL/dl VBG pH 7.00 L* (7.32-7.43) VBG pCO2 35.0 L (40-60) VBG HCO3 8.6 L (21-28) mmol/l VBG Total CO2 9.7 L (22-28) mmol.L VBG O2 Sat (Calc) 78.5 H (40-65) % VBG Base Excess -21.9 L (0.0-2.0) mmol/L VBG Potassium 5.4 H (3.6-5.2) mmol/L Hgb O2 Saturation (95.0-98.0) % Sodium 119.0 L* 122 L (132-148) mmol/L Chloride 83.0 L 85 L (98-107) mmol/L Glucose > 750 H* D (65-105) mg/dl Lactate 7.6 H* (0.7-2.1) mmol/L FiO2 21.0 % Potassium 5.6 H* D (3.6-5.0) mmol/L Carbon Dioxide 9 L D (21-33) mmol/L Anion Gap 33 H (10-20) BUN 45 H (7-21) mg/dL Creatinine 2.0 H (0.7-1.2) mg/dl Est GFR ( Amer) 29 Est GFR (Non-Af Amer) 24 POC Glucose (mg/dL) (65-110) mg/dL Random Glucose 936 H* D (70-110) mg/dL Serum Osmolality (272-300) mosm/kg Calcium 9.4 (8.4-10.5) mg/dL Phosphorus (2.5-4.5) mg/dL Magnesium 2.2 (1.7-2.2) mg/dL Total Bilirubin 1.8 H (0.2-1.3) mg/dL AST 178 H D (14-36) U/L ALT 104 H (7-56) U/L Alkaline Phosphatase 91 (38-126) U/L Lactate Dehydrogenase 682 (333-699) U/L Total Creatine Kinase 199 (35-230) U/L Troponin I 2.07 H* D ng/mL Total Protein 6.5 (5.8-8.3) g/dL Albumin 4.0 (3.0-4.8) g/dL Globulin 2.5 gm/dL Albumin/Globulin Ratio 1.6 (1.1-1.8) Free T4 (0.78-2.19) ng/dL Thyroxine (T4) (5.5-11.0) ug/dL TSH 3rd Generation (0.46-4.68) mIU/mL Venous Blood Potassium 5.4 H (3.6-5.2) mmol/L Urine Color (YELLOW) Urine Appearance (CLEAR) Urine pH (4.7-8.0) Ur Specific Vendor (1.005-1.035) Urine Protein (<30 mg/dL) mg/dL Urine Glucose (UA) (NEGATIVE) mg/dL Urine Ketones (NEGATIVE) mg/dL Urine Blood (NEGATIVE) Urine Nitrate (NEGATIVE) Urine Bilirubin (NEGATIVE) Urine Urobilinogen (<1 E.U./dL) E.U./dL Ur Leukocyte Esterase (NEGATIVE) Aries/uL Urine RBC (0-2) /hpf Urine WBC (0-6) /hpf Ur Epithelial Cells (0-5) /hpf Urine Bacteria (NEG) Salicylates (2.0-20.0) mg/dL Acetaminophen (10.0-20.0) ug/ml B-Hydroxybutyrate 6.90 H (0.02-0.27) mM 03/05/18 03/05/18 03/05/18 Range/Units 09:40 09:37 09:30 WBC 15.2 H (4.5-11.0) 10^3/uL RBC 3.41 L (3.5-6.1) 10^6/uL Hgb 10.7 L D (12.0-16.0) g/dL Hct 34.3 L (36.0-48.0) % MCV 100.6 D (80.0-105.0) fl MCH 31.4 (25.0-35.0) pg MCHC 31.2 (31.0-37.0) g/dl RDW 14.5 (11.5-14.5) % Plt Count 276 (120.0-450.0) 10^3/uL MPV 9.6 (7.0-11.0) fl Gran % 85.3 H (50.0-68.0) % Lymph % (Auto) 4.8 L (22.0-35.0) % [place] % (Auto) 9.7 H (1.0-6.0) % Eos % (Auto) 0.1 L (1.5-5.0) % Baso % (Auto) 0.1 (0.0-3.0) % Gran # 12.97 H (1.4-6.5) Lymph # (Auto) 0.7 L (1.2-3.4) [place] # (Auto) 1.5 H (0.1-0.6) Eos # (Auto) 0.0 (0.0-0.7) Baso # (Auto) 0.02 (0.0-2.0) K/mm3 Neutrophils % (Manual) 86 H (50.0-70.0) % Band Neutrophils % 1 (0-2) % Lymphocytes % (Manual) 3 L (22.0-35.0) % Monocytes % (Manual) 7 H (1.0-6.0) % Eosinophils % (Manual) 1 (0.0-3.0) % Metamyelocytes % 2 % Platelet Evaluation Normal (NORMAL) PT (9.4-12.5) SECONDS INR APTT (25.1-36.5) Seconds pCO2 (35-45) mm/Hg pO2 (30-55) mm/Hg HCO3 (21-28) mmol/L ABG pH (7.35-7.45) ABG Total CO2 (22-28) mmol.L ABG O2 Saturation (95-98) % ABG O2 Content (15-23) ML/dl ABG Base Excess (-2.0-3.0) mmol/L ABG Hemoglobin (11.7-17.4) g/dL ABG Carboxyhemoglobin (0.5-1.5) % POC ABG HHb (Measured) (0-5) % ABG Methemoglobin (0.0-3.0) % ABG O2 Capacity (16-24) mL/dl VBG pH (7.32-7.43) VBG pCO2 (40-60) VBG HCO3 (21-28) mmol/l VBG Total CO2 (22-28) mmol.L VBG O2 Sat (Calc) (40-65) % VBG Base Excess (0.0-2.0) mmol/L VBG Potassium (3.6-5.2) mmol/L Hgb O2 Saturation (95.0-98.0) % Sodium (132-148) mmol/L Chloride (98-107) mmol/L Glucose (65-105) mg/dl Lactate (0.7-2.1) mmol/L FiO2 % Potassium (3.6-5.0) mmol/L Carbon Dioxide (21-33) mmol/L Anion Gap (10-20) BUN (7-21) mg/dL Creatinine (0.7-1.2) mg/dl Est GFR ( Amer) Est GFR (Non-Af Amer) POC Glucose (mg/dL) (65-110) mg/dL Random Glucose (70-110) mg/dL Serum Osmolality (272-300) mosm/kg Calcium (8.4-10.5) mg/dL Phosphorus (2.5-4.5) mg/dL Magnesium (1.7-2.2) mg/dL Total Bilirubin (0.2-1.3) mg/dL AST (14-36) U/L ALT (7-56) U/L Alkaline Phosphatase (38-126) U/L Lactate Dehydrogenase (333-699) U/L Total Creatine Kinase (35-230) U/L Troponin I ng/mL Total Protein (5.8-8.3) g/dL Albumin (3.0-4.8) g/dL Globulin gm/dL Albumin/Globulin Ratio (1.1-1.8) Free T4 (0.78-2.19) ng/dL Thyroxine (T4) (5.5-11.0) ug/dL TSH 3rd Generation (0.46-4.68) mIU/mL Venous Blood Potassium (3.6-5.2) mmol/L Urine Color Light red (YELLOW) Urine Appearance Slight-cloudy (CLEAR) Urine pH 6.0 (4.7-8.0) Ur Specific Vendor 1.020 (1.005-1.035) Urine Protein 100 H (<30 mg/dL) mg/dL Urine Glucose (UA) >=1000 (NEGATIVE) mg/dL Urine Ketones 15 H (NEGATIVE) mg/dL Urine Blood Large H (NEGATIVE) Urine Nitrate Negative (NEGATIVE) Urine Bilirubin Small H (NEGATIVE) Urine Urobilinogen 0.2 (<1 E.U./dL) E.U./dL Ur Leukocyte Esterase Trace H (NEGATIVE) Aries/uL Urine RBC Tntc (0-2) /hpf Urine WBC 2 - 5 (0-6) /hpf Ur Epithelial Cells 0 - 2 (0-5) /hpf Urine Bacteria Mod (NEG) Salicylates < 1 L (2.0-20.0) mg/dL Acetaminophen < 10.0 L (10.0-20.0) ug/ml B-Hydroxybutyrate (0.02-0.27) mM 12/14/18 Range/Units 09:14 WBC (4.5-11.0) 10^3/uL RBC (3.5-6.1) 10^6/uL Hgb (12.0-16.0) g/dL Hct (36.0-48.0) % MCV (80.0-105.0) fl MCH (25.0-35.0) pg MCHC (31.0-37.0) g/dl RDW (11.5-14.5) % Plt Count (120.0-450.0) 10^3/uL MPV (7.0-11.0) fl Gran % (50.0-68.0) % Lymph % (Auto) (22.0-35.0) % [place] % (Auto) (1.0-6.0) % Eos % (Auto) (1.5-5.0) % Baso % (Auto) (0.0-3.0) % Gran # (1.4-6.5) Lymph # (Auto) (1.2-3.4) [place] # (Auto) (0.1-0.6) Eos # (Auto) (0.0-0.7) Baso # (Auto) (0.0-2.0) K/mm3 Neutrophils % (Manual) (50.0-70.0) % Band Neutrophils % (0-2) % Lymphocytes % (Manual) (22.0-35.0) % Monocytes % (Manual) (1.0-6.0) % Eosinophils % (Manual) (0.0-3.0) % Metamyelocytes % % Platelet Evaluation (NORMAL) PT (9.4-12.5) SECONDS INR APTT (25.1-36.5) Seconds pCO2 (35-45) mm/Hg pO2 (30-55) mm/Hg HCO3 (21-28) mmol/L ABG pH (7.35-7.45) ABG Total CO2 (22-28) mmol.L ABG O2 Saturation (95-98) % ABG O2 Content (15-23) ML/dl ABG Base Excess (-2.0-3.0) mmol/L ABG Hemoglobin (11.7-17.4) g/dL ABG Carboxyhemoglobin (0.5-1.5) % POC ABG HHb (Measured) (0-5) % ABG Methemoglobin (0.0-3.0) % ABG O2 Capacity (16-24) mL/dl VBG pH (7.32-7.43) VBG pCO2 (40-60) VBG HCO3 (21-28) mmol/l VBG Total CO2 (22-28) mmol.L VBG O2 Sat (Calc) (40-65) % VBG Base Excess (0.0-2.0) mmol/L VBG Potassium (3.6-5.2) mmol/L Hgb O2 Saturation (95.0-98.0) % Sodium (132-148) mmol/L Chloride (98-107) mmol/L Glucose (65-105) mg/dl Lactate (0.7-2.1) mmol/L FiO2 % Potassium (3.6-5.0) mmol/L Carbon Dioxide (21-33) mmol/L Anion Gap (10-20) BUN (7-21) mg/dL Creatinine (0.7-1.2) mg/dl Est GFR ( Amer) Est GFR (Non-Af Amer) POC Glucose (mg/dL) > 500 H* (65-110) mg/dL Random Glucose (70-110) mg/dL Serum Osmolality (272-300) mosm/kg Calcium (8.4-10.5) mg/dL Phosphorus (2.5-4.5) mg/dL Magnesium (1.7-2.2) mg/dL Total Bilirubin (0.2-1.3) mg/dL AST (14-36) U/L ALT (7-56) U/L Alkaline Phosphatase (38-126) U/L Lactate Dehydrogenase (333-699) U/L Total Creatine Kinase (35-230) U/L Troponin I ng/mL Total Protein (5.8-8.3) g/dL Albumin (3.0-4.8) g/dL Globulin gm/dL Albumin/Globulin Ratio (1.1-1.8) Free T4 (0.78-2.19) ng/dL Thyroxine (T4) (5.5-11.0) ug/dL TSH 3rd Generation (0.46-4.68) mIU/mL Venous Blood Potassium (3.6-5.2) mmol/L Urine Color (YELLOW) Urine Appearance (CLEAR) Urine pH (4.7-8.0) Ur Specific Vendor (1.005-1.035) Urine Protein (<30 mg/dL) mg/dL Urine Glucose (UA) (NEGATIVE) mg/dL Urine Ketones (NEGATIVE) mg/dL Urine Blood (NEGATIVE) Urine Nitrate (NEGATIVE) Urine Bilirubin (NEGATIVE) Urine Urobilinogen (<1 E.U./dL) E.U./dL Ur Leukocyte Esterase (NEGATIVE) Aries/uL Urine RBC (0-2) /hpf Urine WBC (0-6) /hpf Ur Epithelial Cells (0-5) /hpf Urine Bacteria (NEG) Salicylates (2.0-20.0) mg/dL Acetaminophen (10.0-20.0) ug/ml B-Hydroxybutyrate (0.02-0.27) mM Laboratory Results - last 24 hr 03/05/18 03/05/18 03/05/18 09:14 09:30 09:37 WBC RBC Hgb Hct MCV MCH MCHC RDW Plt Count MPV Gran % Lymph % (Auto) [place] % (Auto) Eos % (Auto) Baso % (Auto) Gran # Lymph # (Auto) [place] # (Auto) Eos # (Auto) Baso # (Auto) Neutrophils % (Manual) Band Neutrophils % Lymphocytes % (Manual) Monocytes % (Manual) Eosinophils % (Manual) Metamyelocytes % Platelet Evaluation PT INR APTT pCO2 pO2 HCO3 ABG pH ABG Total CO2 ABG O2 Saturation ABG O2 Content ABG Base Excess ABG Hemoglobin ABG Carboxyhemoglobin POC ABG HHb (Measured) ABG Methemoglobin ABG O2 Capacity VBG pH VBG pCO2 VBG HCO3 VBG Total CO2 VBG O2 Sat (Calc) VBG Base Excess VBG Potassium Hgb O2 Saturation Sodium Chloride Glucose Lactate FiO2 Potassium Carbon Dioxide Anion Gap BUN Creatinine Est GFR ( Amer) Est GFR (Non-Af Amer) POC Glucose (mg/dL) > 500 H* Random Glucose Serum Osmolality Calcium Phosphorus Magnesium Total Bilirubin AST ALT Alkaline Phosphatase Lactate Dehydrogenase Total Creatine Kinase Troponin I Total Protein Albumin Globulin Albumin/Globulin Ratio Free T4 Thyroxine (T4) TSH 3rd Generation Venous Blood Potassium Urine Color Light red Urine Appearance Slight-cloudy Urine pH 6.0 Ur Specific Vendor 1.020 Urine Protein 100 H Urine Glucose (UA) >=1000 Urine Ketones 15 H Urine Blood Large H Urine Nitrate Negative Urine Bilirubin Small H Urine Urobilinogen 0.2 Ur Leukocyte Esterase Trace H Urine RBC Tntc Urine WBC 2 - 5 Ur Epithelial Cells 0 - 2 Urine Bacteria Mod Salicylates < 1 L Acetaminophen < 10.0 L B-Hydroxybutyrate 03/05/18 03/05/18 03/05/18 09:40 09:40 09:40 WBC 15.2 H RBC 3.41 L Hgb 10.7 L D Hct 34.3 L MCV 100.6 D MCH 31.4 MCHC 31.2 RDW 14.5 Plt Count 276 MPV 9.6 Gran % 85.3 H Lymph % (Auto) 4.8 L [place] % (Auto) 9.7 H Eos % (Auto) 0.1 L Baso % (Auto) 0.1 Gran # 12.97 H Lymph # (Auto) 0.7 L [place] # (Auto) 1.5 H Eos # (Auto) 0.0 Baso # (Auto) 0.02 Neutrophils % (Manual) 86 H Band Neutrophils % 1 Lymphocytes % (Manual) 3 L Monocytes % (Manual) 7 H Eosinophils % (Manual) 1 Metamyelocytes % 2 Platelet Evaluation Normal PT 10.6 INR 0.92 APTT 21.0 L pCO2 pO2 HCO3 ABG pH ABG Total CO2 ABG O2 Saturation ABG O2 Content ABG Base Excess ABG Hemoglobin ABG Carboxyhemoglobin POC ABG HHb (Measured) ABG Methemoglobin ABG O2 Capacity VBG pH VBG pCO2 VBG HCO3 VBG Total CO2 VBG O2 Sat (Calc) VBG Base Excess VBG Potassium Hgb O2 Saturation Sodium 122 L Chloride 85 L Glucose Lactate FiO2 Potassium 5.6 H* D Carbon Dioxide 9 L D Anion Gap 33 H BUN 45 H Creatinine 2.0 H Est GFR ( Amer) 29 Est GFR (Non-Af Amer) 24 POC Glucose (mg/dL) Random Glucose 936 H* D Serum Osmolality Calcium 9.4 Phosphorus Magnesium 2.2 Total Bilirubin 1.8 H AST 178 H D ALT 104 H Alkaline Phosphatase 91 Lactate Dehydrogenase 682 Total Creatine Kinase 199 Troponin I 2.07 H* D Total Protein 6.5 Albumin 4.0 Globulin 2.5 Albumin/Globulin Ratio 1.6 Free T4 Thyroxine (T4) TSH 3rd Generation Venous Blood Potassium Urine Color Urine Appearance Urine pH Ur Specific Vendor Urine Protein Urine Glucose (UA) Urine Ketones Urine Blood Urine Nitrate Urine Bilirubin Urine Urobilinogen Ur Leukocyte Esterase Urine RBC Urine WBC Ur Epithelial Cells Urine Bacteria Salicylates Acetaminophen B-Hydroxybutyrate 6.90 H 03/05/18 03/05/18 03/05/18 09:40 09:40 12:45 WBC RBC Hgb Hct MCV MCH MCHC RDW Plt Count MPV Gran % Lymph % (Auto) [place] % (Auto) Eos % (Auto) Baso % (Auto) Gran # Lymph # (Auto) [place] # (Auto) Eos # (Auto) Baso # (Auto) Neutrophils % (Manual) Band Neutrophils % Lymphocytes % (Manual) Monocytes % (Manual) Eosinophils % (Manual) Metamyelocytes % Platelet Evaluation PT INR APTT pCO2 pO2 48 HCO3 ABG pH ABG Total CO2 ABG O2 Saturation ABG O2 Content ABG Base Excess ABG Hemoglobin ABG Carboxyhemoglobin POC ABG HHb (Measured) ABG Methemoglobin ABG O2 Capacity VBG pH 7.00 L* VBG pCO2 35.0 L VBG HCO3 8.6 L VBG Total CO2 9.7 L VBG O2 Sat (Calc) 78.5 H VBG Base Excess -21.9 L VBG Potassium 5.4 H Hgb O2 Saturation Sodium 119.0 L* Chloride 83.0 L Glucose > 750 H* D Lactate 7.6 H* FiO2 21.0 Potassium Carbon Dioxide Anion Gap BUN Creatinine Est GFR ( Amer) Est GFR (Non-Af Amer) POC Glucose (mg/dL) Random Glucose Serum Osmolality 326 H Calcium Phosphorus Magnesium Total Bilirubin AST ALT Alkaline Phosphatase Lactate Dehydrogenase Total Creatine Kinase Troponin I 8.88 H* D Total Protein Albumin Globulin Albumin/Globulin Ratio Free T4 Thyroxine (T4) TSH 3rd Generation Venous Blood Potassium 5.4 H Urine Color Urine Appearance Urine pH Ur Specific Vendor Urine Protein Urine Glucose (UA) Urine Ketones Urine Blood Urine Nitrate Urine Bilirubin Urine Urobilinogen Ur Leukocyte Esterase Urine RBC Urine WBC Ur Epithelial Cells Urine Bacteria Salicylates Acetaminophen B-Hydroxybutyrate 03/05/18 03/05/18 03/05/18 13:30 13:42 14:55 WBC RBC Hgb Hct MCV MCH MCHC RDW Plt Count MPV Gran % Lymph % (Auto) [place] % (Auto) Eos % (Auto) Baso % (Auto) Gran # Lymph # (Auto) [place] # (Auto) Eos # (Auto) Baso # (Auto) Neutrophils % (Manual) Band Neutrophils % Lymphocytes % (Manual) Monocytes % (Manual) Eosinophils % (Manual) Metamyelocytes % Platelet Evaluation PT INR APTT pCO2 pO2 234 H HCO3 ABG pH ABG Total CO2 ABG O2 Saturation ABG O2 Content ABG Base Excess ABG Hemoglobin ABG Carboxyhemoglobin POC ABG HHb (Measured) ABG Methemoglobin ABG O2 Capacity VBG pH 6.95 L* VBG pCO2 35.0 L VBG HCO3 7.7 L VBG Total CO2 8.8 L VBG O2 Sat (Calc) 98.9 H VBG Base Excess -23.7 L VBG Potassium 4.9 Hgb O2 Saturation Sodium 127.0 L Chloride 86.0 L Glucose > 750 H* Lactate 8.7 H* FiO2 21.0 Potassium Carbon Dioxide Anion Gap BUN Creatinine Est GFR ( Amer) Est GFR (Non-Af Amer) POC Glucose (mg/dL) > 500 H* > 500 H* Random Glucose Serum Osmolality Calcium Phosphorus Magnesium Total Bilirubin AST ALT Alkaline Phosphatase Lactate Dehydrogenase Total Creatine Kinase Troponin I Total Protein Albumin Globulin Albumin/Globulin Ratio Free T4 Thyroxine (T4) TSH 3rd Generation Venous Blood Potassium 4.9 Urine Color Urine Appearance Urine pH Ur Specific Vendor Urine Protein Urine Glucose (UA) Urine Ketones Urine Blood Urine Nitrate Urine Bilirubin Urine Urobilinogen Ur Leukocyte Esterase Urine RBC Urine WBC Ur Epithelial Cells Urine Bacteria Salicylates Acetaminophen B-Hydroxybutyrate 03/05/18 03/05/18 03/05/18 16:36 17:16 17:22 WBC RBC Hgb Hct MCV MCH MCHC RDW Plt Count MPV Gran % Lymph % (Auto) [place] % (Auto) Eos % (Auto) Baso % (Auto) Gran # Lymph # (Auto) [place] # (Auto) Eos # (Auto) Baso # (Auto) Neutrophils % (Manual) Band Neutrophils % Lymphocytes % (Manual) Monocytes % (Manual) Eosinophils % (Manual) Metamyelocytes % Platelet Evaluation PT INR APTT pCO2 pO2 HCO3 ABG pH ABG Total CO2 ABG O2 Saturation ABG O2 Content ABG Base Excess ABG Hemoglobin ABG Carboxyhemoglobin POC ABG HHb (Measured) ABG Methemoglobin ABG O2 Capacity VBG pH VBG pCO2 VBG HCO3 VBG Total CO2 VBG O2 Sat (Calc) VBG Base Excess VBG Potassium Hgb O2 Saturation Sodium 126 L Chloride 98 Glucose Lactate FiO2 Potassium 4.1 Carbon Dioxide 13 L Anion Gap 18 BUN 46 H Creatinine 1.9 H Est GFR ( Amer) 31 Est GFR (Non-Af Amer) 25 POC Glucose (mg/dL) > 500 H* > 500 H* Random Glucose 601 H* D Serum Osmolality Calcium 7.7 L Phosphorus Magnesium Total Bilirubin 1.3 AST 460 H D ALT 215 H Alkaline Phosphatase 69 Lactate Dehydrogenase Total Creatine Kinase Troponin I 32.60 H* D Total Protein 5.2 L Albumin 3.0 Globulin 2.3 Albumin/Globulin Ratio 1.3 Free T4 Thyroxine (T4) TSH 3rd Generation Venous Blood Potassium Urine Color Urine Appearance Urine pH Ur Specific Vendor Urine Protein Urine Glucose (UA) Urine Ketones Urine Blood Urine Nitrate Urine Bilirubin Urine Urobilinogen Ur Leukocyte Esterase Urine RBC Urine WBC Ur Epithelial Cells Urine Bacteria Salicylates Acetaminophen B-Hydroxybutyrate 03/05/18 03/05/18 03/05/18 18:08 19:03 19:19 WBC RBC Hgb Hct MCV MCH MCHC RDW Plt Count MPV Gran % Lymph % (Auto) [place] % (Auto) Eos % (Auto) Baso % (Auto) Gran # Lymph # (Auto) [place] # (Auto) Eos # (Auto) Baso # (Auto) Neutrophils % (Manual) Band Neutrophils % Lymphocytes % (Manual) Monocytes % (Manual) Eosinophils % (Manual) Metamyelocytes % Platelet Evaluation PT INR APTT pCO2 28 L pO2 65.0 L HCO3 13.8 L ABG pH 7.30 L ABG Total CO2 14.7 L ABG O2 Saturation 95.5 ABG O2 Content 12.6 L ABG Base Excess -11.4 L ABG Hemoglobin 9.5 L ABG Carboxyhemoglobin 0.9 POC ABG HHb (Measured) 4.4 ABG Methemoglobin 0.8 ABG O2 Capacity 13.2 L VBG pH VBG pCO2 VBG HCO3 VBG Total CO2 VBG O2 Sat (Calc) VBG Base Excess VBG Potassium Hgb O2 Saturation 93.8 L Sodium Chloride Glucose Lactate FiO2 21.0 Potassium Carbon Dioxide Anion Gap BUN Creatinine Est GFR ( Amer) Est GFR (Non-Af Amer) POC Glucose (mg/dL) > 500 H* > 500 H* Random Glucose Serum Osmolality Calcium Phosphorus Magnesium Total Bilirubin AST ALT Alkaline Phosphatase Lactate Dehydrogenase Total Creatine Kinase Troponin I Total Protein Albumin Globulin Albumin/Globulin Ratio Free T4 Thyroxine (T4) TSH 3rd Generation Venous Blood Potassium Urine Color Urine Appearance Urine pH Ur Specific Vendor Urine Protein Urine Glucose (UA) Urine Ketones Urine Blood Urine Nitrate Urine Bilirubin Urine Urobilinogen Ur Leukocyte Esterase Urine RBC Urine WBC Ur Epithelial Cells Urine Bacteria Salicylates Acetaminophen B-Hydroxybutyrate 03/05/18 03/05/18 03/05/18 20:09 21:16 21:56 WBC RBC Hgb Hct MCV MCH MCHC RDW Plt Count MPV Gran % Lymph % (Auto) [place] % (Auto) Eos % (Auto) Baso % (Auto) Gran # Lymph # (Auto) [place] # (Auto) Eos # (Auto) Baso # (Auto) Neutrophils % (Manual) Band Neutrophils % Lymphocytes % (Manual) Monocytes % (Manual) Eosinophils % (Manual) Metamyelocytes % Platelet Evaluation PT INR APTT pCO2 pO2 HCO3 ABG pH ABG Total CO2 ABG O2 Saturation ABG O2 Content ABG Base Excess ABG Hemoglobin ABG Carboxyhemoglobin POC ABG HHb (Measured) ABG Methemoglobin ABG O2 Capacity VBG pH VBG pCO2 VBG HCO3 VBG Total CO2 VBG O2 Sat (Calc) VBG Base Excess VBG Potassium Hgb O2 Saturation Sodium Chloride Glucose Lactate FiO2 Potassium Carbon Dioxide Anion Gap BUN Creatinine Est GFR ( Amer) Est GFR (Non-Af Amer) POC Glucose (mg/dL) > 500 H* 433 H* 341 H Random Glucose Serum Osmolality Calcium Phosphorus Magnesium Total Bilirubin AST ALT Alkaline Phosphatase Lactate Dehydrogenase Total Creatine Kinase Troponin I Total Protein Albumin Globulin Albumin/Globulin Ratio Free T4 Thyroxine (T4) TSH 3rd Generation Venous Blood Potassium Urine Color Urine Appearance Urine pH Ur Specific Vendor Urine Protein Urine Glucose (UA) Urine Ketones Urine Blood Urine Nitrate Urine Bilirubin Urine Urobilinogen Ur Leukocyte Esterase Urine RBC Urine WBC Ur Epithelial Cells Urine Bacteria Salicylates Acetaminophen B-Hydroxybutyrate 03/05/18 03/06/18 03/06/18 23:44 01:10 01:30 WBC RBC Hgb Hct MCV MCH MCHC RDW Plt Count MPV Gran % Lymph % (Auto) [place] % (Auto) Eos % (Auto) Baso % (Auto) Gran # Lymph # (Auto) [place] # (Auto) Eos # (Auto) Baso # (Auto) Neutrophils % (Manual) Band Neutrophils % Lymphocytes % (Manual) Monocytes % (Manual) Eosinophils % (Manual) Metamyelocytes % Platelet Evaluation PT INR APTT pCO2 pO2 32 HCO3 ABG pH ABG Total CO2 ABG O2 Saturation ABG O2 Content ABG Base Excess ABG Hemoglobin ABG Carboxyhemoglobin POC ABG HHb (Measured) ABG Methemoglobin ABG O2 Capacity VBG pH 7.18 L* VBG pCO2 47.0 VBG HCO3 17.5 L VBG Total CO2 18.9 L VBG O2 Sat (Calc) 62.2 VBG Base Excess -10.7 L VBG Potassium 3.3 L Hgb O2 Saturation Sodium 133.0 Chloride 103.0 Glucose 182 H Lactate 2.6 H FiO2 21.0 Potassium Carbon Dioxide Anion Gap BUN Creatinine Est GFR ( Amer) Est GFR (Non-Af Amer) POC Glucose (mg/dL) 306 H 252 H Random Glucose Serum Osmolality Calcium Phosphorus Magnesium Total Bilirubin AST ALT Alkaline Phosphatase Lactate Dehydrogenase Total Creatine Kinase Troponin I Total Protein Albumin Globulin Albumin/Globulin Ratio Free T4 Thyroxine (T4) TSH 3rd Generation Venous Blood Potassium 3.3 L Urine Color Urine Appearance Urine pH Ur Specific Vendor Urine Protein Urine Glucose (UA) Urine Ketones Urine Blood Urine Nitrate Urine Bilirubin Urine Urobilinogen Ur Leukocyte Esterase Urine RBC Urine WBC Ur Epithelial Cells Urine Bacteria Salicylates Acetaminophen B-Hydroxybutyrate 03/06/18 03/06/18 03/06/18 01:30 01:30 01:30 WBC 16.8 H RBC 3.59 Hgb 11.3 L Hct 32.5 L MCV 90.5 D MCH 31.5 MCHC 34.8 RDW 13.7 Plt Count 231 MPV 9.3 Gran % 82.5 H Lymph % (Auto) 5.1 L [place] % (Auto) 12.3 H Eos % (Auto) 0.0 L Baso % (Auto) 0.1 Gran # 13.86 H Lymph # (Auto) 0.9 L [place] # (Auto) 2.1 H Eos # (Auto) 0.0 Baso # (Auto) 0.01 Neutrophils % (Manual) Band Neutrophils % Lymphocytes % (Manual) Monocytes % (Manual) Eosinophils % (Manual) Metamyelocytes % Platelet Evaluation PT INR APTT 47.4 H pCO2 pO2 HCO3 ABG pH ABG Total CO2 ABG O2 Saturation ABG O2 Content ABG Base Excess ABG Hemoglobin ABG Carboxyhemoglobin POC ABG HHb (Measured) ABG Methemoglobin ABG O2 Capacity VBG pH VBG pCO2 VBG HCO3 VBG Total CO2 VBG O2 Sat (Calc) VBG Base Excess VBG Potassium Hgb O2 Saturation Sodium 133 Chloride 107 Glucose Lactate FiO2 Potassium 3.4 L Carbon Dioxide 18 L Anion Gap 12 BUN 42 H Creatinine 1.7 H Est GFR ( Amer) 35 Est GFR (Non-Af Amer) 29 POC Glucose (mg/dL) Random Glucose 173 H Serum Osmolality Calcium 7.9 L Phosphorus Magnesium Total Bilirubin 0.7 AST 542 H ALT 251 H Alkaline Phosphatase 67 Lactate Dehydrogenase Total Creatine Kinase Troponin I 68.90 H* D Total Protein 5.3 L Albumin 2.8 L Globulin 2.5 Albumin/Globulin Ratio 1.1 Free T4 Thyroxine (T4) TSH 3rd Generation Venous Blood Potassium Urine Color Urine Appearance Urine pH Ur Specific Vendor Urine Protein Urine Glucose (UA) Urine Ketones Urine Blood Urine Nitrate Urine Bilirubin Urine Urobilinogen Ur Leukocyte Esterase Urine RBC Urine WBC Ur Epithelial Cells Urine Bacteria Salicylates Acetaminophen B-Hydroxybutyrate 03/06/18 03/06/18 03/06/18 02:36 04:14 05:00 WBC 21.3 H D RBC 3.77 Hgb 11.6 L Hct 34.2 L MCV 90.7 MCH 30.8 MCHC 33.9 RDW 13.8 Plt Count 259 MPV 9.3 Gran % 86.6 H Lymph % (Auto) 4.4 L [place] % (Auto) 8.9 H Eos % (Auto) 0.0 L Baso % (Auto) 0.1 Gran # 18.46 H Lymph # (Auto) 0.9 L [place] # (Auto) 1.9 H Eos # (Auto) 0.0 Baso # (Auto) 0.02 Neutrophils % (Manual) Band Neutrophils % Lymphocytes % (Manual) Monocytes % (Manual) Eosinophils % (Manual) Metamyelocytes % Platelet Evaluation PT INR APTT pCO2 pO2 HCO3 ABG pH ABG Total CO2 ABG O2 Saturation ABG O2 Content ABG Base Excess ABG Hemoglobin ABG Carboxyhemoglobin POC ABG HHb (Measured) ABG Methemoglobin ABG O2 Capacity VBG pH VBG pCO2 VBG HCO3 VBG Total CO2 VBG O2 Sat (Calc) VBG Base Excess VBG Potassium Hgb O2 Saturation Sodium Chloride Glucose Lactate FiO2 Potassium Carbon Dioxide Anion Gap BUN Creatinine Est GFR ( Amer) Est GFR (Non-Af Amer) POC Glucose (mg/dL) 146 H 127 H Random Glucose Serum Osmolality Calcium Phosphorus Magnesium Total Bilirubin AST ALT Alkaline Phosphatase Lactate Dehydrogenase Total Creatine Kinase Troponin I Total Protein Albumin Globulin Albumin/Globulin Ratio Free T4 Thyroxine (T4) TSH 3rd Generation Venous Blood Potassium Urine Color Urine Appearance Urine pH Ur Specific Vendor Urine Protein Urine Glucose (UA) Urine Ketones Urine Blood Urine Nitrate Urine Bilirubin Urine Urobilinogen Ur Leukocyte Esterase Urine RBC Urine WBC Ur Epithelial Cells Urine Bacteria Salicylates Acetaminophen B-Hydroxybutyrate 03/06/18 03/06/18 03/06/18 05:30 05:30 05:30 WBC RBC Hgb Hct MCV MCH MCHC RDW Plt Count MPV Gran % Lymph % (Auto) [place] % (Auto) Eos % (Auto) Baso % (Auto) Gran # Lymph # (Auto) [place] # (Auto) Eos # (Auto) Baso # (Auto) Neutrophils % (Manual) Band Neutrophils % Lymphocytes % (Manual) Monocytes % (Manual) Eosinophils % (Manual) Metamyelocytes % Platelet Evaluation PT INR APTT pCO2 pO2 51 HCO3 ABG pH ABG Total CO2 ABG O2 Saturation ABG O2 Content ABG Base Excess ABG Hemoglobin ABG Carboxyhemoglobin POC ABG HHb (Measured) ABG Methemoglobin ABG O2 Capacity VBG pH 7.24 L VBG pCO2 36.0 L VBG HCO3 15.4 L VBG Total CO2 16.5 L VBG O2 Sat (Calc) 85.0 H VBG Base Excess -11.1 L VBG Potassium 3.2 L Hgb O2 Saturation Sodium 131 L 134.0 Chloride 109 H 104.0 Glucose 112 H Lactate 2.5 H FiO2 21.0 Potassium 3.5 L Carbon Dioxide 13 L Anion Gap 13 BUN 40 H Creatinine 1.6 H Est GFR ( Amer) 38 Est GFR (Non-Af Amer) 31 POC Glucose (mg/dL) Random Glucose 106 Serum Osmolality Calcium 7.9 L Phosphorus 3.4 Magnesium 1.7 Total Bilirubin 0.7 AST 519 H ALT 241 H Alkaline Phosphatase 66 Lactate Dehydrogenase Total Creatine Kinase Troponin I Total Protein 5.3 L Albumin 2.9 L Globulin 2.4 Albumin/Globulin Ratio 1.2 Free T4 1.56 Thyroxine (T4) 6.3 TSH 3rd Generation 2.87 Venous Blood Potassium 3.2 L Urine Color Urine Appearance Urine pH Ur Specific Vendor Urine Protein Urine Glucose (UA) Urine Ketones Urine Blood Urine Nitrate Urine Bilirubin Urine Urobilinogen Ur Leukocyte Esterase Urine RBC Urine WBC Ur Epithelial Cells Urine Bacteria Salicylates Acetaminophen B-Hydroxybutyrate 03/06/18 03/06/18 03/06/18 06:28 07:28 08:44 WBC RBC Hgb Hct MCV MCH MCHC RDW Plt Count MPV Gran % Lymph % (Auto) [place] % (Auto) Eos % (Auto) Baso % (Auto) Gran # Lymph # (Auto) [place] # (Auto) Eos # (Auto) Baso # (Auto) Neutrophils % (Manual) Band Neutrophils % Lymphocytes % (Manual) Monocytes % (Manual) Eosinophils % (Manual) Metamyelocytes % Platelet Evaluation PT INR APTT pCO2 pO2 HCO3 ABG pH ABG Total CO2 ABG O2 Saturation ABG O2 Content ABG Base Excess ABG Hemoglobin ABG Carboxyhemoglobin POC ABG HHb (Measured) ABG Methemoglobin ABG O2 Capacity VBG pH VBG pCO2 VBG HCO3 VBG Total CO2 VBG O2 Sat (Calc) VBG Base Excess VBG Potassium Hgb O2 Saturation Sodium Chloride Glucose Lactate FiO2 Potassium Carbon Dioxide Anion Gap BUN Creatinine Est GFR ( Amer) Est GFR (Non-Af Amer) POC Glucose (mg/dL) 159 H 111 H 129 H Random Glucose Serum Osmolality Calcium Phosphorus Magnesium Total Bilirubin AST ALT Alkaline Phosphatase Lactate Dehydrogenase Total Creatine Kinase Troponin I Total Protein Albumin Globulin Albumin/Globulin Ratio Free T4 Thyroxine (T4) TSH 3rd Generation Venous Blood Potassium Urine Color Urine Appearance Urine pH Ur Specific Vendor Urine Protein Urine Glucose (UA) Urine Ketones Urine Blood Urine Nitrate Urine Bilirubin Urine Urobilinogen Ur Leukocyte Esterase Urine RBC Urine WBC Ur Epithelial Cells Urine Bacteria Salicylates Acetaminophen B-Hydroxybutyrate 03/06/18 09:32 WBC RBC Hgb Hct MCV MCH MCHC RDW Plt Count MPV Gran % Lymph % (Auto) [place] % (Auto) Eos % (Auto) Baso % (Auto) Gran # Lymph # (Auto) [place] # (Auto) Eos # (Auto) Baso # (Auto) Neutrophils % (Manual) Band Neutrophils % Lymphocytes % (Manual) Monocytes % (Manual) Eosinophils % (Manual) Metamyelocytes % Platelet Evaluation PT INR APTT pCO2 pO2 HCO3 ABG pH ABG Total CO2 ABG O2 Saturation ABG O2 Content ABG Base Excess ABG Hemoglobin ABG Carboxyhemoglobin POC ABG HHb (Measured) ABG Methemoglobin ABG O2 Capacity VBG pH VBG pCO2 VBG HCO3 VBG Total CO2 VBG O2 Sat (Calc) VBG Base Excess VBG Potassium Hgb O2 Saturation Sodium Chloride Glucose Lactate FiO2 Potassium Carbon Dioxide Anion Gap BUN Creatinine Est GFR ( Amer) Est GFR (Non-Af Amer) POC Glucose (mg/dL) 114 H Random Glucose Serum Osmolality Calcium Phosphorus Magnesium Total Bilirubin AST ALT Alkaline Phosphatase Lactate Dehydrogenase Total Creatine Kinase Troponin I Total Protein Albumin Globulin Albumin/Globulin Ratio Free T4 Thyroxine (T4) TSH 3rd Generation Venous Blood Potassium Urine Color Urine Appearance Urine pH Ur Specific Vendor Urine Protein Urine Glucose (UA) Urine Ketones Urine Blood Urine Nitrate Urine Bilirubin Urine Urobilinogen Ur Leukocyte Esterase Urine RBC Urine WBC Ur Epithelial Cells Urine Bacteria Salicylates Acetaminophen B-Hydroxybutyrate Radiology Impressions: Radiology Impressions Chest X-Ray 03/05/18 09:33 IMPRESSION: No active disease. No significant interval change compared to the prior examination(s). Head CT 03/05/18 09:34 IMPRESSION: No evidence of acute intracranial hemorrhage mass effect or midline shift. Moderate atrophy and [id number] chronic microvascular white matter ischemic changes. EKG/Cardiology Studies: Cardiology / EKG Studies 03/05/18 09:32 ELECTROCARDIOGRAM Stat Comment: Reason For Exam: ams 03/05/18 09:40 EKG [ELECTROCARDIOGRAM] Stat Comment: Reason For Exam: repeat 03/05/18 10:36 EKG [ELECTROCARDIOGRAM] Stat Comment: Reason For Exam: POSTERIOR 03/05/18 15:26 EKG [ELECTROCARDIOGRAM] Stat Comment: Reason For Exam: elevated trop 03/05/18 23:49 EKG [ELECTROCARDIOGRAM] Stat Comment: Reason For Exam: r/o STEMI 03/06/18 06:00 ELECTROCARDIOGRAM Routine Comment: Reason For Exam: ST elevations and T wave depressons prior EKG Fingerstick Blood Sugar Results: 500 Review of Systems - Review of Systems Systems not reviewed;Unavailable: Uncooperative Critical Care Progress Note - Nutrition Nutrition: Nutrition Category Date Time Status NPO Diet [DIET] Diets 03/05/18 Dinner Ordered Assessment/Plan - Assessment and Plan (Free Text) Assessment: Patient is a 82 year old female with PMHx of HTN, HLD, CAD, DM2, breast ca s/p surgical removal of mass of L breast, hypothyroidism, diverticulosis who presented for slurred speech and confusion. Patient was found to be in DKA and admitted to ICU. Plan: Neuro - AAOx2 - CT Head negative for bleed - maintain normothermia Pulm - CXR unremarkable - maintain SaO2> 92% Cardio - NSTEMI likely 2/2 demand ischemia - EKG in ED: NSR with multiple ST depressions vs T wave inversions - troponins trending down - heparin drip - not indicated for cath as per cardio recs - followup ECHO GI - transaminitis resolving - FOBT positive, no signs of active bleeding - GI consulted. Appreciate recs. - NPO - Protonix 40 mg IV Q12 Renal - JUAN resolved - Is and Os Heme - monitor and transfuse PRN - heparin drip Endo - AG 28 -> 10, lactate 7.6 -> 2.5 - insulin drip transitioning to SC with Levemir 10 units - D5 1/2 NS @ 100 ccs/hr - Endocrinology consulted. Appreciate recs. - Synthroid 100 mcg PO daily ID - afebrile, positive leukocytosis - UA positive for ketones, protein, large blood - procal high - UCx positive for E.Coli - BCx neg x2, wound Cx neg - Vancomycin 1 gm IV daily, Zosyn 2.25 gm IV Q12 Case was discussed with attending Dr. Nica Martin PGY-1 - Date & Time Date: 03/06/18 Time: 08:00 <Klaus Yousif - Last Filed: 03/06/18 15:03> CCU Objective - Vital Signs / Intake & Output Intake and Output (Last 8hrs): Intake & Output 03/05/18 03/06/18 03/06/18 22:59 06:59 14:59 Intake Total 3200 50 Output Total 100 100 Balance 3100 -50 Weight 120 lb Intake: IV 3200 50 Left Antecubital 3000 Right 200 Oral 0 0 Output: Urine 100 100 Urethral (Rollins) 100 100 Other: # Bowel Movements 0 0 - Medications Active Medications: Active Medications Generic Name Dose Route Start Last Admin Trade Name Freq PRN Reason Stop Dose Admin Aspirin 81 mg 03/05/18 14:30 03/06/18 10:13 Aspirin Chewable PO 81 mg DAILY OZZY Administration Vancomycin HCl 1 gm in 250 mls @ 167 mls/hr 03/06/18 10:00 03/06/18 10:12 Vancomycin 1gm IVPB 167 mls/hr DAILY OZZY Administration Protocol Heparin Sodium/Sodium Chloride 25,000 units in 250 mls @ 6.532 mls/hr 03/05/18 19:00 03/06/18 06:33 Heparin 00546 Units/250ml 1/2 Normal Saline IV 14 units/kg/hr .Q24H OZZY 7.62 mls/hr Titration Protocol 12 UNITS/KG/HR NOREPINEPHRINE BIT/0.9 % NACL 4 mg in 250 mls @ 15 mls/hr 03/06/18 00:47 Levophed 4 Mg/ 250 Ml Ns Premixed IV .[id number] PRN TITRATE PER MD ORDER Protocol 4 MCG/MIN Dextrose/Sodium Chloride 1,000 mls @ 100 mls/hr 03/06/18 03:00 Dextrose 5%/0.45% Ns 1000 Ml IV .Q10H OZZY Piperacillin Sod/Tazobactam Sod 2.25 gm in 100 mls @ 100 mls/hr 03/06/18 09:45 03/06/18 10:15 Zosyn 2.25 Gm In 0.9% 100 Ml IVPB Not Given Q12 [facility] Protocol Levothyroxine Sodium 100 mcg 03/06/18 06:00 03/06/18 08:20 Synthroid PO 100 mcg 0600 OZZY Administration Pantoprazole Sodium 40 mg 03/06/18 10:00 03/06/18 10:13 Protonix Inj IVP 40 mg Q12 OZZY Administration - Patient Studies Lab Studies: Microbiology Studies 03/05/18 10:07 Blood Culture - Preliminary Blood NO GROWTH AFTER 24 HOURS 03/05/18 09:37 Blood Culture - Preliminary Blood NO GROWTH AFTER 24 HOURS 03/05/18 13:30 Gram Stain - Final Chest Wound Culture - Preliminary NO GROWTH AFTER 24 HOURS 03/05/18 09:37 Urine Culture - Preliminary Urine,Clean Catch Gram Negative Sridhar Lab Studies 03/06/18 03/06/18 03/06/18 Range/Units 14:00 13:33 13:00 WBC (4.5-11.0) 10^3/uL RBC (3.5-6.1) 10^6/uL Hgb (12.0-16.0) g/dL Hct (36.0-48.0) % MCV (80.0-105.0) fl MCH (25.0-35.0) pg MCHC (31.0-37.0) g/dl RDW (11.5-14.5) % Plt Count (120.0-450.0) 10^3/uL MPV (7.0-11.0) fl Gran % (50.0-68.0) % Lymph % (Auto) (22.0-35.0) % [place] % (Auto) (1.0-6.0) % Eos % (Auto) (1.5-5.0) % Baso % (Auto) (0.0-3.0) % Gran # (1.4-6.5) Lymph # (Auto) (1.2-3.4) [place] # (Auto) (0.1-0.6) Eos # (Auto) (0.0-0.7) Baso # (Auto) (0.0-2.0) K/mm3 Neutrophils % (Manual) (50.0-70.0) % Lymphocytes % (Manual) (22.0-35.0) % Monocytes % (Manual) (1.0-6.0) % APTT > 400.0 H* (25.1-36.5) Seconds pCO2 (35-45) mm/Hg pO2 (80-100) mm/Hg HCO3 (21-28) mmol/L ABG pH (7.35-7.45) ABG Total CO2 (22-28) mmol.L ABG O2 Saturation (95-98) % ABG O2 Content (15-23) ML/dl ABG Base Excess (-2.0-3.0) mmol/L ABG Hemoglobin (11.7-17.4) g/dL ABG Carboxyhemoglobin (0.5-1.5) % POC ABG HHb (Measured) (0-5) % ABG Methemoglobin (0.0-3.0) % ABG O2 Capacity (16-24) mL/dl VBG pH (7.32-7.43) VBG pCO2 (40-60) VBG HCO3 (21-28) mmol/l VBG Total CO2 (22-28) mmol.L VBG O2 Sat (Calc) (40-65) % VBG Base Excess (0.0-2.0) mmol/L VBG Potassium (3.6-5.2) mmol/L Hgb O2 Saturation (95.0-98.0) % Glucose (65-105) mg/dl Lactate (0.7-2.1) mmol/L FiO2 % Sodium 131 L (132-148) mmol/L Potassium 3.8 (3.6-5.0) mmol/L Chloride 109 H (98-107) mmol/L Carbon Dioxide 16 L (21-33) mmol/L Anion Gap 10 (10-20) BUN 33 H (7-21) mg/dL Creatinine 1.2 (0.7-1.2) mg/dl Est GFR ( Amer) 52 Est GFR (Non-Af Amer) 43 POC Glucose (mg/dL) 136 H (65-110) mg/dL Random Glucose 158 H (70-110) mg/dL Calcium 7.8 L (8.4-10.5) mg/dL Phosphorus (2.5-4.5) mg/dL Magnesium (1.7-2.2) mg/dL Total Bilirubin (0.2-1.3) mg/dL AST (14-36) U/L ALT (7-56) U/L Alkaline Phosphatase (38-126) U/L Troponin I ng/mL Total Protein (5.8-8.3) g/dL Albumin (3.0-4.8) g/dL Globulin gm/dL Albumin/Globulin Ratio (1.1-1.8) Procalcitonin (0.19-0.49) NG/ML Free T4 (0.78-2.19) ng/dL Thyroxine (T4) (5.5-11.0) ug/dL TSH 3rd Generation (0.46-4.68) mIU/mL Venous Blood Potassium (3.6-5.2) mmol/L B-Hydroxybutyrate (0.02-0.27) mM 03/06/18 03/06/18 03/06/18 Range/Units 12:39 11:51 11:00 WBC 20.9 H (4.5-11.0) 10^3/uL RBC 3.23 L (3.5-6.1) 10^6/uL Hgb 10.2 L (12.0-16.0) g/dL Hct 29.5 L (36.0-48.0) % MCV 91.3 (80.0-105.0) fl MCH 31.6 (25.0-35.0) pg MCHC 34.6 (31.0-37.0) g/dl RDW 14.1 (11.5-14.5) % Plt Count 208 (120.0-450.0) 10^3/uL MPV 9.4 (7.0-11.0) fl Gran % (50.0-68.0) % Lymph % (Auto) (22.0-35.0) % [place] % (Auto) (1.0-6.0) % Eos % (Auto) (1.5-5.0) % Baso % (Auto) 0.0 (0.0-3.0) % Gran # (1.4-6.5) Lymph # (Auto) (1.2-3.4) [place] # (Auto) (0.1-0.6) Eos # (Auto) (0.0-0.7) Baso # (Auto) 0.01 (0.0-2.0) K/mm3 Neutrophils % (Manual) 90 H (50.0-70.0) % Lymphocytes % (Manual) 4 L (22.0-35.0) % Monocytes % (Manual) 6 (1.0-6.0) % APTT (25.1-36.5) Seconds pCO2 (35-45) mm/Hg pO2 (80-100) mm/Hg HCO3 (21-28) mmol/L ABG pH (7.35-7.45) ABG Total CO2 (22-28) mmol.L ABG O2 Saturation (95-98) % ABG O2 Content (15-23) ML/dl ABG Base Excess (-2.0-3.0) mmol/L ABG Hemoglobin (11.7-17.4) g/dL ABG Carboxyhemoglobin (0.5-1.5) % POC ABG HHb (Measured) (0-5) % ABG Methemoglobin (0.0-3.0) % ABG O2 Capacity (16-24) mL/dl VBG pH (7.32-7.43) VBG pCO2 (40-60) VBG HCO3 (21-28) mmol/l VBG Total CO2 (22-28) mmol.L VBG O2 Sat (Calc) (40-65) % VBG Base Excess (0.0-2.0) mmol/L VBG Potassium (3.6-5.2) mmol/L Hgb O2 Saturation (95.0-98.0) % Glucose (65-105) mg/dl Lactate (0.7-2.1) mmol/L FiO2 % Sodium (132-148) mmol/L Potassium (3.6-5.0) mmol/L Chloride (98-107) mmol/L Carbon Dioxide (21-33) mmol/L Anion Gap (10-20) BUN (7-21) mg/dL Creatinine (0.7-1.2) mg/dl Est GFR ( Amer) Est GFR (Non-Af Amer) POC Glucose (mg/dL) 118 H 115 H (65-110) mg/dL Random Glucose (70-110) mg/dL Calcium (8.4-10.5) mg/dL Phosphorus (2.5-4.5) mg/dL Magnesium (1.7-2.2) mg/dL Total Bilirubin (0.2-1.3) mg/dL AST (14-36) U/L ALT (7-56) U/L Alkaline Phosphatase (38-126) U/L Troponin I ng/mL Total Protein (5.8-8.3) g/dL Albumin (3.0-4.8) g/dL Globulin gm/dL Albumin/Globulin Ratio (1.1-1.8) Procalcitonin (0.19-0.49) NG/ML Free T4 (0.78-2.19) ng/dL Thyroxine (T4) (5.5-11.0) ug/dL TSH 3rd Generation (0.46-4.68) mIU/mL Venous Blood Potassium (3.6-5.2) mmol/L B-Hydroxybutyrate (0.02-0.27) mM 03/06/18 03/06/18 03/06/18 Range/Units 11:00 10:42 09:32 WBC (4.5-11.0) 10^3/uL RBC (3.5-6.1) 10^6/uL Hgb (12.0-16.0) g/dL Hct (36.0-48.0) % MCV (80.0-105.0) fl MCH (25.0-35.0) pg MCHC (31.0-37.0) g/dl RDW (11.5-14.5) % Plt Count (120.0-450.0) 10^3/uL MPV (7.0-11.0) fl Gran % (50.0-68.0) % Lymph % (Auto) (22.0-35.0) % Barbour % (Auto) (1.0-6.0) % Eos % (Auto) (1.5-5.0) % Baso % (Auto) (0.0-3.0) % Gran # (1.4-6.5) Lymph # (Auto) (1.2-3.4) Barbour # (Auto) (0.1-0.6) Eos # (Auto) (0.0-0.7) Baso # (Auto) (0.0-2.0) K/mm3 Neutrophils % (Manual) (50.0-70.0) % Lymphocytes % (Manual) (22.0-35.0) % Monocytes % (Manual) (1.0-6.0) % APTT (25.1-36.5) Seconds pCO2 (35-45) mm/Hg pO2 (80-100) mm/Hg HCO3 (21-28) mmol/L ABG pH (7.35-7.45) ABG Total CO2 (22-28) mmol.L ABG O2 Saturation (95-98) % ABG O2 Content (15-23) ML/dl ABG Base Excess (-2.0-3.0) mmol/L ABG Hemoglobin (11.7-17.4) g/dL ABG Carboxyhemoglobin (0.5-1.5) % POC ABG HHb (Measured) (0-5) % ABG Methemoglobin (0.0-3.0) % ABG O2 Capacity (16-24) mL/dl VBG pH (7.32-7.43) VBG pCO2 (40-60) VBG HCO3 (21-28) mmol/l VBG Total CO2 (22-28) mmol.L VBG O2 Sat (Calc) (40-65) % VBG Base Excess (0.0-2.0) mmol/L VBG Potassium (3.6-5.2) mmol/L Hgb O2 Saturation (95.0-98.0) % Glucose (65-105) mg/dl Lactate (0.7-2.1) mmol/L FiO2 % Sodium 132 (132-148) mmol/L Potassium 7.3 H* D (3.6-5.0) mmol/L Chloride 119 H (98-107) mmol/L Carbon Dioxide 12 L (21-33) mmol/L Anion Gap 8 L (10-20) BUN 26 H (7-21) mg/dL Creatinine 0.9 (0.7-1.2) mg/dl Est GFR ( Amer) > 60 Est GFR (Non-Af Amer) > 60 POC Glucose (mg/dL) 127 H 114 H (65-110) mg/dL Random Glucose 97 (70-110) mg/dL Calcium 5.0 L* (8.4-10.5) mg/dL Phosphorus (2.5-4.5) mg/dL Magnesium (1.7-2.2) mg/dL Total Bilirubin 0.7 (0.2-1.3) mg/dL AST 286 H D (14-36) U/L ALT 170 H (7-56) U/L Alkaline Phosphatase 46 (38-126) U/L Troponin I 25.90 H* D ng/mL Total Protein 3.4 L (5.8-8.3) g/dL Albumin 1.8 L (3.0-4.8) g/dL Globulin 1.6 gm/dL Albumin/Globulin Ratio 1.1 (1.1-1.8) Procalcitonin (0.19-0.49) NG/ML Free T4 (0.78-2.19) ng/dL Thyroxine (T4) (5.5-11.0) ug/dL TSH 3rd Generation (0.46-4.68) mIU/mL Venous Blood Potassium (3.6-5.2) mmol/L B-Hydroxybutyrate (0.02-0.27) mM 03/06/18 03/06/18 03/06/18 Range/Units 08:44 07:28 06:28 WBC (4.5-11.0) 10^3/uL RBC (3.5-6.1) 10^6/uL Hgb (12.0-16.0) g/dL Hct (36.0-48.0) % MCV (80.0-105.0) fl MCH (25.0-35.0) pg MCHC (31.0-37.0) g/dl RDW (11.5-14.5) % Plt Count (120.0-450.0) 10^3/uL MPV (7.0-11.0) fl Gran % (50.0-68.0) % Lymph % (Auto) (22.0-35.0) % [place]bour % (Auto) (1.0-6.0) % Eos % (Auto) (1.5-5.0) % Baso % (Auto) (0.0-3.0) % Gran # (1.4-6.5) Lymph # (Auto) (1.2-3.4) Barbour # (Auto) (0.1-0.6) Eos # (Auto) (0.0-0.7) Baso # (Auto) (0.0-2.0) K/mm3 Neutrophils % (Manual) (50.0-70.0) % Lymphocytes % (Manual) (22.0-35.0) % Monocytes % (Manual) (1.0-6.0) % APTT (25.1-36.5) Seconds pCO2 (35-45) mm/Hg pO2 (80-100) mm/Hg HCO3 (21-28) mmol/L ABG pH (7.35-7.45) ABG Total CO2 (22-28) mmol.L ABG O2 Saturation (95-98) % ABG O2 Content (15-23) ML/dl ABG Base Excess (-2.0-3.0) mmol/L ABG Hemoglobin (11.7-17.4) g/dL ABG Carboxyhemoglobin (0.5-1.5) % POC ABG HHb (Measured) (0-5) % ABG Methemoglobin (0.0-3.0) % ABG O2 Capacity (16-24) mL/dl VBG pH (7.32-7.43) VBG pCO2 (40-60) VBG HCO3 (21-28) mmol/l VBG Total CO2 (22-28) mmol.L VBG O2 Sat (Calc) (40-65) % VBG Base Excess (0.0-2.0) mmol/L VBG Potassium (3.6-5.2) mmol/L Hgb O2 Saturation (95.0-98.0) % Glucose (65-105) mg/dl Lactate (0.7-2.1) mmol/L FiO2 % Sodium (132-148) mmol/L Potassium (3.6-5.0) mmol/L Chloride (98-107) mmol/L Carbon Dioxide (21-33) mmol/L Anion Gap (10-20) BUN (7-21) mg/dL Creatinine (0.7-1.2) mg/dl Est GFR ( Amer) Est GFR (Non-Af Amer) POC Glucose (mg/dL) 129 H 111 H 159 H (65-110) mg/dL Random Glucose (70-110) mg/dL Calcium (8.4-10.5) mg/dL Phosphorus (2.5-4.5) mg/dL Magnesium (1.7-2.2) mg/dL Total Bilirubin (0.2-1.3) mg/dL AST (14-36) U/L ALT (7-56) U/L Alkaline Phosphatase (38-126) U/L Troponin I ng/mL Total Protein (5.8-8.3) g/dL Albumin (3.0-4.8) g/dL Globulin gm/dL Albumin/Globulin Ratio (1.1-1.8) Procalcitonin (0.19-0.49) NG/ML Free T4 (0.78-2.19) ng/dL Thyroxine (T4) (5.5-11.0) ug/dL TSH 3rd Generation (0.46-4.68) mIU/mL Venous Blood Potassium (3.6-5.2) mmol/L B-Hydroxybutyrate (0.02-0.27) mM 03/06/18 03/06/18 03/06/18 Range/Units 05:30 05:30 05:30 WBC (4.5-11.0) 10^3/uL RBC (3.5-6.1) 10^6/uL Hgb (12.0-16.0) g/dL Hct (36.0-48.0) % MCV (80.0-105.0) fl MCH (25.0-35.0) pg MCHC (31.0-37.0) g/dl RDW (11.5-14.5) % Plt Count (120.0-450.0) 10^3/uL MPV (7.0-11.0) fl Gran % (50.0-68.0) % Lymph % (Auto) (22.0-35.0) % [place] % (Auto) (1.0-6.0) % Eos % (Auto) (1.5-5.0) % Baso % (Auto) (0.0-3.0) % Gran # (1.4-6.5) Lymph # (Auto) (1.2-3.4) [place] # (Auto) (0.1-0.6) Eos # (Auto) (0.0-0.7) Baso # (Auto) (0.0-2.0) K/mm3 Neutrophils % (Manual) (50.0-70.0) % Lymphocytes % (Manual) (22.0-35.0) % Monocytes % (Manual) (1.0-6.0) % APTT (25.1-36.5) Seconds pCO2 (35-45) mm/Hg pO2 51 (80-100) mm/Hg HCO3 (21-28) mmol/L ABG pH (7.35-7.45) ABG Total CO2 (22-28) mmol.L ABG O2 Saturation (95-98) % ABG O2 Content (15-23) ML/dl ABG Base Excess (-2.0-3.0) mmol/L ABG Hemoglobin (11.7-17.4) g/dL ABG Carboxyhemoglobin (0.5-1.5) % POC ABG HHb (Measured) (0-5) % ABG Methemoglobin (0.0-3.0) % ABG O2 Capacity (16-24) mL/dl VBG pH 7.24 L (7.32-7.43) VBG pCO2 36.0 L (40-60) VBG HCO3 15.4 L (21-28) mmol/l VBG Total CO2 16.5 L (22-28) mmol.L VBG O2 Sat (Calc) 85.0 H (40-65) % VBG Base Excess -11.1 L (0.0-2.0) mmol/L VBG Potassium 3.2 L (3.6-5.2) mmol/L Hgb O2 Saturation (95.0-98.0) % Glucose 112 H (65-105) mg/dl Lactate 2.5 H (0.7-2.1) mmol/L FiO2 21.0 % Sodium 134.0 131 L (132-148) mmol/L Potassium 3.5 L (3.6-5.0) mmol/L Chloride 104.0 109 H (98-107) mmol/L Carbon Dioxide 13 L (21-33) mmol/L Anion Gap 13 (10-20) BUN 40 H (7-21) mg/dL Creatinine 1.6 H (0.7-1.2) mg/dl Est GFR ( Amer) 38 Est GFR (Non-Af Amer) 31 POC Glucose (mg/dL) (65-110) mg/dL Random Glucose 106 (70-110) mg/dL Calcium 7.9 L (8.4-10.5) mg/dL Phosphorus 3.4 (2.5-4.5) mg/dL Magnesium 1.7 (1.7-2.2) mg/dL Total Bilirubin 0.7 (0.2-1.3) mg/dL AST 519 H (14-36) U/L ALT 241 H (7-56) U/L Alkaline Phosphatase 66 (38-126) U/L Troponin I ng/mL Total Protein 5.3 L (5.8-8.3) g/dL Albumin 2.9 L (3.0-4.8) g/dL Globulin 2.4 gm/dL Albumin/Globulin Ratio 1.2 (1.1-1.8) Procalcitonin (0.19-0.49) NG/ML Free T4 1.56 (0.78-2.19) ng/dL Thyroxine (T4) 6.3 (5.5-11.0) ug/dL TSH 3rd Generation 2.87 (0.46-4.68) mIU/mL Venous Blood Potassium 3.2 L (3.6-5.2) mmol/L B-Hydroxybutyrate (0.02-0.27) mM 03/06/18 03/06/18 03/06/18 Range/Units 05:00 04:14 02:36 WBC 21.3 H D (4.5-11.0) 10^3/uL RBC 3.77 (3.5-6.1) 10^6/uL Hgb 11.6 L (12.0-16.0) g/dL Hct 34.2 L (36.0-48.0) % MCV 90.7 (80.0-105.0) fl MCH 30.8 (25.0-35.0) pg MCHC 33.9 (31.0-37.0) g/dl RDW 13.8 (11.5-14.5) % Plt Count 259 (120.0-450.0) 10^3/uL MPV 9.3 (7.0-11.0) fl Gran % 86.6 H (50.0-68.0) % Lymph % (Auto) 4.4 L (22.0-35.0) % [place] % (Auto) 8.9 H (1.0-6.0) % Eos % (Auto) 0.0 L (1.5-5.0) % Baso % (Auto) 0.1 (0.0-3.0) % Gran # 18.46 H (1.4-6.5) Lymph # (Auto) 0.9 L (1.2-3.4) [place] # (Auto) 1.9 H (0.1-0.6) Eos # (Auto) 0.0 (0.0-0.7) Baso # (Auto) 0.02 (0.0-2.0) K/mm3 Neutrophils % (Manual) (50.0-70.0) % Lymphocytes % (Manual) (22.0-35.0) % Monocytes % (Manual) (1.0-6.0) % APTT (25.1-36.5) Seconds pCO2 (35-45) mm/Hg pO2 (80-100) mm/Hg HCO3 (21-28) mmol/L ABG pH (7.35-7.45) ABG Total CO2 (22-28) mmol.L ABG O2 Saturation (95-98) % ABG O2 Content (15-23) ML/dl ABG Base Excess (-2.0-3.0) mmol/L ABG Hemoglobin (11.7-17.4) g/dL ABG Carboxyhemoglobin (0.5-1.5) % POC ABG HHb (Measured) (0-5) % ABG Methemoglobin (0.0-3.0) % ABG O2 Capacity (16-24) mL/dl VBG pH (7.32-7.43) VBG pCO2 (40-60) VBG HCO3 (21-28) mmol/l VBG Total CO2 (22-28) mmol.L VBG O2 Sat (Calc) (40-65) % VBG Base Excess (0.0-2.0) mmol/L VBG Potassium (3.6-5.2) mmol/L Hgb O2 Saturation (95.0-98.0) % Glucose (65-105) mg/dl Lactate (0.7-2.1) mmol/L FiO2 % Sodium (132-148) mmol/L Potassium (3.6-5.0) mmol/L Chloride (98-107) mmol/L Carbon Dioxide (21-33) mmol/L Anion Gap (10-20) BUN (7-21) mg/dL Creatinine (0.7-1.2) mg/dl Est GFR ( Amer) Est GFR (Non-Af Amer) POC Glucose (mg/dL) 127 H 146 H (65-110) mg/dL Random Glucose (70-110) mg/dL Calcium (8.4-10.5) mg/dL Phosphorus (2.5-4.5) mg/dL Magnesium (1.7-2.2) mg/dL Total Bilirubin (0.2-1.3) mg/dL AST (14-36) U/L ALT (7-56) U/L Alkaline Phosphatase (38-126) U/L Troponin I ng/mL Total Protein (5.8-8.3) g/dL Albumin (3.0-4.8) g/dL Globulin gm/dL Albumin/Globulin Ratio (1.1-1.8) Procalcitonin (0.19-0.49) NG/ML Free T4 (0.78-2.19) ng/dL Thyroxine (T4) (5.5-11.0) ug/dL TSH 3rd Generation (0.46-4.68) mIU/mL Venous Blood Potassium (3.6-5.2) mmol/L B-Hydroxybutyrate (0.02-0.27) mM 03/06/18 03/06/18 03/06/18 Range/Units 01:30 01:30 01:30 WBC 16.8 H (4.5-11.0) 10^3/uL RBC 3.59 (3.5-6.1) 10^6/uL Hgb 11.3 L (12.0-16.0) g/dL Hct 32.5 L (36.0-48.0) % MCV 90.5 D (80.0-105.0) fl MCH 31.5 (25.0-35.0) pg MCHC 34.8 (31.0-37.0) g/dl RDW 13.7 (11.5-14.5) % Plt Count 231 (120.0-450.0) 10^3/uL MPV 9.3 (7.0-11.0) fl Gran % 82.5 H (50.0-68.0) % Lymph % (Auto) 5.1 L (22.0-35.0) % [place] % (Auto) 12.3 H (1.0-6.0) % Eos % (Auto) 0.0 L (1.5-5.0) % Baso % (Auto) 0.1 (0.0-3.0) % Gran # 13.86 H (1.4-6.5) Lymph # (Auto) 0.9 L (1.2-3.4) [place] # (Auto) 2.1 H (0.1-0.6) Eos # (Auto) 0.0 (0.0-0.7) Baso # (Auto) 0.01 (0.0-2.0) K/mm3 Neutrophils % (Manual) (50.0-70.0) % Lymphocytes % (Manual) (22.0-35.0) % Monocytes % (Manual) (1.0-6.0) % APTT 47.4 H (25.1-36.5) Seconds pCO2 (35-45) mm/Hg pO2 (80-100) mm/Hg HCO3 (21-28) mmol/L ABG pH (7.35-7.45) ABG Total CO2 (22-28) mmol.L ABG O2 Saturation (95-98) % ABG O2 Content (15-23) ML/dl ABG Base Excess (-2.0-3.0) mmol/L ABG Hemoglobin (11.7-17.4) g/dL ABG Carboxyhemoglobin (0.5-1.5) % POC ABG HHb (Measured) (0-5) % ABG Methemoglobin (0.0-3.0) % ABG O2 Capacity (16-24) mL/dl VBG pH (7.32-7.43) VBG pCO2 (40-60) VBG HCO3 (21-28) mmol/l VBG Total CO2 (22-28) mmol.L VBG O2 Sat (Calc) (40-65) % VBG Base Excess (0.0-2.0) mmol/L VBG Potassium (3.6-5.2) mmol/L Hgb O2 Saturation (95.0-98.0) % Glucose (65-105) mg/dl Lactate (0.7-2.1) mmol/L FiO2 % Sodium 133 (132-148) mmol/L Potassium 3.4 L (3.6-5.0) mmol/L Chloride 107 (98-107) mmol/L Carbon Dioxide 18 L (21-33) mmol/L Anion Gap 12 (10-20) BUN 42 H (7-21) mg/dL Creatinine 1.7 H (0.7-1.2) mg/dl Est GFR ( Amer) 35 Est GFR (Non-Af Amer) 29 POC Glucose (mg/dL) (65-110) mg/dL Random Glucose 173 H (70-110) mg/dL Calcium 7.9 L (8.4-10.5) mg/dL Phosphorus (2.5-4.5) mg/dL Magnesium (1.7-2.2) mg/dL Total Bilirubin 0.7 (0.2-1.3) mg/dL AST 542 H (14-36) U/L ALT 251 H (7-56) U/L Alkaline Phosphatase 67 (38-126) U/L Troponin I 68.90 H* D ng/mL Total Protein 5.3 L (5.8-8.3) g/dL Albumin 2.8 L (3.0-4.8) g/dL Globulin 2.5 gm/dL Albumin/Globulin Ratio 1.1 (1.1-1.8) Procalcitonin (0.19-0.49) NG/ML Free T4 (0.78-2.19) ng/dL Thyroxine (T4) (5.5-11.0) ug/dL TSH 3rd Generation (0.46-4.68) mIU/mL Venous Blood Potassium (3.6-5.2) mmol/L B-Hydroxybutyrate (0.02-0.27) mM 03/06/18 03/06/18 03/05/18 Range/Units 01:30 01:10 23:44 WBC (4.5-11.0) 10^3/uL RBC (3.5-6.1) 10^6/uL Hgb (12.0-16.0) g/dL Hct (36.0-48.0) % MCV (80.0-105.0) fl MCH (25.0-35.0) pg MCHC (31.0-37.0) g/dl RDW (11.5-14.5) % Plt Count (120.0-450.0) 10^3/uL MPV (7.0-11.0) fl Gran % (50.0-68.0) % Lymph % (Auto) (22.0-35.0) % [place] % (Auto) (1.0-6.0) % Eos % (Auto) (1.5-5.0) % Baso % (Auto) (0.0-3.0) % Gran # (1.4-6.5) Lymph # (Auto) (1.2-3.4) [place] # (Auto) (0.1-0.6) Eos # (Auto) (0.0-0.7) Baso # (Auto) (0.0-2.0) K/mm3 Neutrophils % (Manual) (50.0-70.0) % Lymphocytes % (Manual) (22.0-35.0) % Monocytes % (Manual) (1.0-6.0) % APTT (25.1-36.5) Seconds pCO2 (35-45) mm/Hg pO2 32 (80-100) mm/Hg HCO3 (21-28) mmol/L ABG pH (7.35-7.45) ABG Total CO2 (22-28) mmol.L ABG O2 Saturation (95-98) % ABG O2 Content (15-23) ML/dl ABG Base Excess (-2.0-3.0) mmol/L ABG Hemoglobin (11.7-17.4) g/dL ABG Carboxyhemoglobin (0.5-1.5) % POC ABG HHb (Measured) (0-5) % ABG Methemoglobin (0.0-3.0) % ABG O2 Capacity (16-24) mL/dl VBG pH 7.18 L* (7.32-7.43) VBG pCO2 47.0 (40-60) VBG HCO3 17.5 L (21-28) mmol/l VBG Total CO2 18.9 L (22-28) mmol.L VBG O2 Sat (Calc) 62.2 (40-65) % VBG Base Excess -10.7 L (0.0-2.0) mmol/L VBG Potassium 3.3 L (3.6-5.2) mmol/L Hgb O2 Saturation (95.0-98.0) % Glucose 182 H (65-105) mg/dl Lactate 2.6 H (0.7-2.1) mmol/L FiO2 21.0 % Sodium 133.0 (132-148) mmol/L Potassium (3.6-5.0) mmol/L Chloride 103.0 (98-107) mmol/L Carbon Dioxide (21-33) mmol/L Anion Gap (10-20) BUN (7-21) mg/dL Creatinine (0.7-1.2) mg/dl Est GFR ( Amer) Est GFR (Non-Af Amer) POC Glucose (mg/dL) 252 H 306 H (65-110) mg/dL Random Glucose (70-110) mg/dL Calcium (8.4-10.5) mg/dL Phosphorus (2.5-4.5) mg/dL Magnesium (1.7-2.2) mg/dL Total Bilirubin (0.2-1.3) mg/dL AST (14-36) U/L ALT (7-56) U/L Alkaline Phosphatase (38-126) U/L Troponin I ng/mL Total Protein (5.8-8.3) g/dL Albumin (3.0-4.8) g/dL Globulin gm/dL Albumin/Globulin Ratio (1.1-1.8) Procalcitonin (0.19-0.49) NG/ML Free T4 (0.78-2.19) ng/dL Thyroxine (T4) (5.5-11.0) ug/dL TSH 3rd Generation (0.46-4.68) mIU/mL Venous Blood Potassium 3.3 L (3.6-5.2) mmol/L B-Hydroxybutyrate (0.02-0.27) mM 03/05/18 03/05/18 03/05/18 Range/Units 21:56 21:23 21:16 WBC (4.5-11.0) 10^3/uL RBC (3.5-6.1) 10^6/uL Hgb (12.0-16.0) g/dL Hct (36.0-48.0) % MCV (80.0-105.0) fl MCH (25.0-35.0) pg MCHC (31.0-37.0) g/dl RDW (11.5-14.5) % Plt Count (120.0-450.0) 10^3/uL MPV (7.0-11.0) fl Gran % (50.0-68.0) % Lymph % (Auto) (22.0-35.0) % [place] % (Auto) (1.0-6.0) % Eos % (Auto) (1.5-5.0) % Baso % (Auto) (0.0-3.0) % Gran # (1.4-6.5) Lymph # (Auto) (1.2-3.4) [place] # (Auto) (0.1-0.6) Eos # (Auto) (0.0-0.7) Baso # (Auto) (0.0-2.0) K/mm3 Neutrophils % (Manual) (50.0-70.0) % Lymphocytes % (Manual) (22.0-35.0) % Monocytes % (Manual) (1.0-6.0) % APTT (25.1-36.5) Seconds pCO2 (35-45) mm/Hg pO2 (80-100) mm/Hg HCO3 (21-28) mmol/L ABG pH (7.35-7.45) ABG Total CO2 (22-28) mmol.L ABG O2 Saturation (95-98) % ABG O2 Content (15-23) ML/dl ABG Base Excess (-2.0-3.0) mmol/L ABG Hemoglobin (11.7-17.4) g/dL ABG Carboxyhemoglobin (0.5-1.5) % POC ABG HHb (Measured) (0-5) % ABG Methemoglobin (0.0-3.0) % ABG O2 Capacity (16-24) mL/dl VBG pH (7.32-7.43) VBG pCO2 (40-60) VBG HCO3 (21-28) mmol/l VBG Total CO2 (22-28) mmol.L VBG O2 Sat (Calc) (40-65) % VBG Base Excess (0.0-2.0) mmol/L VBG Potassium (3.6-5.2) mmol/L Hgb O2 Saturation (95.0-98.0) % Glucose (65-105) mg/dl Lactate (0.7-2.1) mmol/L FiO2 % Sodium (132-148) mmol/L Potassium (3.6-5.0) mmol/L Chloride (98-107) mmol/L Carbon Dioxide (21-33) mmol/L Anion Gap (10-20) BUN (7-21) mg/dL Creatinine (0.7-1.2) mg/dl Est GFR ( Amer) Est GFR (Non-Af Amer) POC Glucose (mg/dL) 341 H 433 H* (65-110) mg/dL Random Glucose (70-110) mg/dL Calcium (8.4-10.5) mg/dL Phosphorus (2.5-4.5) mg/dL Magnesium (1.7-2.2) mg/dL Total Bilirubin (0.2-1.3) mg/dL AST (14-36) U/L ALT (7-56) U/L Alkaline Phosphatase (38-126) U/L Troponin I ng/mL Total Protein (5.8-8.3) g/dL Albumin (3.0-4.8) g/dL Globulin gm/dL Albumin/Globulin Ratio (1.1-1.8) Procalcitonin 4.12 H (0.19-0.49) NG/ML Free T4 (0.78-2.19) ng/dL Thyroxine (T4) (5.5-11.0) ug/dL TSH 3rd Generation (0.46-4.68) mIU/mL Venous Blood Potassium (3.6-5.2) mmol/L B-Hydroxybutyrate (0.02-0.27) mM 03/05/18 03/05/18 03/05/18 Range/Units 20:09 19:19 19:03 WBC (4.5-11.0) 10^3/uL RBC (3.5-6.1) 10^6/uL Hgb (12.0-16.0) g/dL Hct (36.0-48.0) % MCV (80.0-105.0) fl MCH (25.0-35.0) pg MCHC (31.0-37.0) g/dl RDW (11.5-14.5) % Plt Count (120.0-450.0) 10^3/uL MPV (7.0-11.0) fl Gran % (50.0-68.0) % Lymph % (Auto) (22.0-35.0) % [place] % (Auto) (1.0-6.0) % Eos % (Auto) (1.5-5.0) % Baso % (Auto) (0.0-3.0) % Gran # (1.4-6.5) Lymph # (Auto) (1.2-3.4) [place] # (Auto) (0.1-0.6) Eos # (Auto) (0.0-0.7) Baso # (Auto) (0.0-2.0) K/mm3 Neutrophils % (Manual) (50.0-70.0) % Lymphocytes % (Manual) (22.0-35.0) % Monocytes % (Manual) (1.0-6.0) % APTT (25.1-36.5) Seconds pCO2 28 L (35-45) mm/Hg pO2 65.0 L (80-100) mm/Hg HCO3 13.8 L (21-28) mmol/L ABG pH 7.30 L (7.35-7.45) ABG Total CO2 14.7 L (22-28) mmol.L ABG O2 Saturation 95.5 (95-98) % ABG O2 Content 12.6 L (15-23) ML/dl ABG Base Excess -11.4 L (-2.0-3.0) mmol/L ABG Hemoglobin 9.5 L (11.7-17.4) g/dL ABG Carboxyhemoglobin 0.9 (0.5-1.5) % POC ABG HHb (Measured) 4.4 (0-5) % ABG Methemoglobin 0.8 (0.0-3.0) % ABG O2 Capacity 13.2 L (16-24) mL/dl VBG pH (7.32-7.43) VBG pCO2 (40-60) VBG HCO3 (21-28) mmol/l VBG Total CO2 (22-28) mmol.L VBG O2 Sat (Calc) (40-65) % VBG Base Excess (0.0-2.0) mmol/L VBG Potassium (3.6-5.2) mmol/L Hgb O2 Saturation 93.8 L (95.0-98.0) % Glucose (65-105) mg/dl Lactate (0.7-2.1) mmol/L FiO2 21.0 % Sodium (132-148) mmol/L Potassium (3.6-5.0) mmol/L Chloride (98-107) mmol/L Carbon Dioxide (21-33) mmol/L Anion Gap (10-20) BUN (7-21) mg/dL Creatinine (0.7-1.2) mg/dl Est GFR ( Amer) Est GFR (Non-Af Amer) POC Glucose (mg/dL) > 500 H* > 500 H* (65-110) mg/dL Random Glucose (70-110) mg/dL Calcium (8.4-10.5) mg/dL Phosphorus (2.5-4.5) mg/dL Magnesium (1.7-2.2) mg/dL Total Bilirubin (0.2-1.3) mg/dL AST (14-36) U/L ALT (7-56) U/L Alkaline Phosphatase (38-126) U/L Troponin I ng/mL Total Protein (5.8-8.3) g/dL Albumin (3.0-4.8) g/dL Globulin gm/dL Albumin/Globulin Ratio (1.1-1.8) Procalcitonin (0.19-0.49) NG/ML Free T4 (0.78-2.19) ng/dL Thyroxine (T4) (5.5-11.0) ug/dL TSH 3rd Generation (0.46-4.68) mIU/mL Venous Blood Potassium (3.6-5.2) mmol/L B-Hydroxybutyrate (0.02-0.27) mM 03/05/18 03/05/18 03/05/18 Range/Units 18:08 17:22 17:16 WBC (4.5-11.0) 10^3/uL RBC (3.5-6.1) 10^6/uL Hgb (12.0-16.0) g/dL Hct (36.0-48.0) % MCV (80.0-105.0) fl MCH (25.0-35.0) pg MCHC (31.0-37.0) g/dl RDW (11.5-14.5) % Plt Count (120.0-450.0) 10^3/uL MPV (7.0-11.0) fl Gran % (50.0-68.0) % Lymph % (Auto) (22.0-35.0) % [place] % (Auto) (1.0-6.0) % Eos % (Auto) (1.5-5.0) % Baso % (Auto) (0.0-3.0) % Gran # (1.4-6.5) Lymph # (Auto) (1.2-3.4) [place] # (Auto) (0.1-0.6) Eos # (Auto) (0.0-0.7) Baso # (Auto) (0.0-2.0) K/mm3 Neutrophils % (Manual) (50.0-70.0) % Lymphocytes % (Manual) (22.0-35.0) % Monocytes % (Manual) (1.0-6.0) % APTT (25.1-36.5) Seconds pCO2 (35-45) mm/Hg pO2 (80-100) mm/Hg HCO3 (21-28) mmol/L ABG pH (7.35-7.45) ABG Total CO2 (22-28) mmol.L ABG O2 Saturation (95-98) % ABG O2 Content (15-23) ML/dl ABG Base Excess (-2.0-3.0) mmol/L ABG Hemoglobin (11.7-17.4) g/dL ABG Carboxyhemoglobin (0.5-1.5) % POC ABG HHb (Measured) (0-5) % ABG Methemoglobin (0.0-3.0) % ABG O2 Capacity (16-24) mL/dl VBG pH (7.32-7.43) VBG pCO2 (40-60) VBG HCO3 (21-28) mmol/l VBG Total CO2 (22-28) mmol.L VBG O2 Sat (Calc) (40-65) % VBG Base Excess (0.0-2.0) mmol/L VBG Potassium (3.6-5.2) mmol/L Hgb O2 Saturation (95.0-98.0) % Glucose (65-105) mg/dl Lactate (0.7-2.1) mmol/L FiO2 % Sodium 126 L (132-148) mmol/L Potassium 4.1 (3.6-5.0) mmol/L Chloride 98 (98-107) mmol/L Carbon Dioxide 13 L (21-33) mmol/L Anion Gap 18 (10-20) BUN 46 H (7-21) mg/dL Creatinine 1.9 H (0.7-1.2) mg/dl Est GFR ( Amer) 31 Est GFR (Non-Af Amer) 25 POC Glucose (mg/dL) > 500 H* > 500 H* (65-110) mg/dL Random Glucose 601 H* D (70-110) mg/dL Calcium 7.7 L (8.4-10.5) mg/dL Phosphorus (2.5-4.5) mg/dL Magnesium (1.7-2.2) mg/dL Total Bilirubin 1.3 (0.2-1.3) mg/dL AST 460 H D (14-36) U/L ALT 215 H (7-56) U/L Alkaline Phosphatase 69 (38-126) U/L Troponin I 32.60 H* D ng/mL Total Protein 5.2 L (5.8-8.3) g/dL Albumin 3.0 (3.0-4.8) g/dL Globulin 2.3 gm/dL Albumin/Globulin Ratio 1.3 (1.1-1.8) Procalcitonin (0.19-0.49) NG/ML Free T4 (0.78-2.19) ng/dL Thyroxine (T4) (5.5-11.0) ug/dL TSH 3rd Generation (0.46-4.68) mIU/mL Venous Blood Potassium (3.6-5.2) mmol/L B-Hydroxybutyrate (0.02-0.27) mM 03/05/18 03/05/18 03/05/18 Range/Units 16:36 14:55 13:42 WBC (4.5-11.0) 10^3/uL RBC (3.5-6.1) 10^6/uL Hgb (12.0-16.0) g/dL Hct (36.0-48.0) % MCV (80.0-105.0) fl MCH (25.0-35.0) pg MCHC (31.0-37.0) g/dl RDW (11.5-14.5) % Plt Count (120.0-450.0) 10^3/uL MPV (7.0-11.0) fl Gran % (50.0-68.0) % Lymph % (Auto) (22.0-35.0) % [place] % (Auto) (1.0-6.0) % Eos % (Auto) (1.5-5.0) % Baso % (Auto) (0.0-3.0) % Gran # (1.4-6.5) Lymph # (Auto) (1.2-3.4) [place] # (Auto) (0.1-0.6) Eos # (Auto) (0.0-0.7) Baso # (Auto) (0.0-2.0) K/mm3 Neutrophils % (Manual) (50.0-70.0) % Lymphocytes % (Manual) (22.0-35.0) % Monocytes % (Manual) (1.0-6.0) % APTT (25.1-36.5) Seconds pCO2 (35-45) mm/Hg pO2 (80-100) mm/Hg HCO3 (21-28) mmol/L ABG pH (7.35-7.45) ABG Total CO2 (22-28) mmol.L ABG O2 Saturation (95-98) % ABG O2 Content (15-23) ML/dl ABG Base Excess (-2.0-3.0) mmol/L ABG Hemoglobin (11.7-17.4) g/dL ABG Carboxyhemoglobin (0.5-1.5) % POC ABG HHb (Measured) (0-5) % ABG Methemoglobin (0.0-3.0) % ABG O2 Capacity (16-24) mL/dl VBG pH (7.32-7.43) VBG pCO2 (40-60) VBG HCO3 (21-28) mmol/l VBG Total CO2 (22-28) mmol.L VBG O2 Sat (Calc) (40-65) % VBG Base Excess (0.0-2.0) mmol/L VBG Potassium (3.6-5.2) mmol/L Hgb O2 Saturation (95.0-98.0) % Glucose (65-105) mg/dl Lactate (0.7-2.1) mmol/L FiO2 % Sodium (132-148) mmol/L Potassium (3.6-5.0) mmol/L Chloride (98-107) mmol/L Carbon Dioxide (21-33) mmol/L Anion Gap (10-20) BUN (7-21) mg/dL Creatinine (0.7-1.2) mg/dl Est GFR ( Amer) Est GFR (Non-Af Amer) POC Glucose (mg/dL) > 500 H* > 500 H* > 500 H* (65-110) mg/dL Random Glucose (70-110) mg/dL Calcium (8.4-10.5) mg/dL Phosphorus (2.5-4.5) mg/dL Magnesium (1.7-2.2) mg/dL Total Bilirubin (0.2-1.3) mg/dL AST (14-36) U/L ALT (7-56) U/L Alkaline Phosphatase (38-126) U/L Troponin I ng/mL Total Protein (5.8-8.3) g/dL Albumin (3.0-4.8) g/dL Globulin gm/dL Albumin/Globulin Ratio (1.1-1.8) Procalcitonin (0.19-0.49) NG/ML Free T4 (0.78-2.19) ng/dL Thyroxine (T4) (5.5-11.0) ug/dL TSH 3rd Generation (0.46-4.68) mIU/mL Venous Blood Potassium (3.6-5.2) mmol/L B-Hydroxybutyrate (0.02-0.27) mM 03/05/18 Range/Units 09:40 WBC (4.5-11.0) 10^3/uL RBC (3.5-6.1) 10^6/uL Hgb (12.0-16.0) g/dL Hct (36.0-48.0) % MCV (80.0-105.0) fl MCH (25.0-35.0) pg MCHC (31.0-37.0) g/dl RDW (11.5-14.5) % Plt Count (120.0-450.0) 10^3/uL MPV (7.0-11.0) fl Gran % (50.0-68.0) % Lymph % (Auto) (22.0-35.0) % [place] % (Auto) (1.0-6.0) % Eos % (Auto) (1.5-5.0) % Baso % (Auto) (0.0-3.0) % Gran # (1.4-6.5) Lymph # (Auto) (1.2-3.4) [place] # (Auto) (0.1-0.6) Eos # (Auto) (0.0-0.7) Baso # (Auto) (0.0-2.0) K/mm3 Neutrophils % (Manual) (50.0-70.0) % Lymphocytes % (Manual) (22.0-35.0) % Monocytes % (Manual) (1.0-6.0) % APTT (25.1-36.5) Seconds pCO2 (35-45) mm/Hg pO2 (80-100) mm/Hg HCO3 (21-28) mmol/L ABG pH (7.35-7.45) ABG Total CO2 (22-28) mmol.L ABG O2 Saturation (95-98) % ABG O2 Content (15-23) ML/dl ABG Base Excess (-2.0-3.0) mmol/L ABG Hemoglobin (11.7-17.4) g/dL ABG Carboxyhemoglobin (0.5-1.5) % POC ABG HHb (Measured) (0-5) % ABG Methemoglobin (0.0-3.0) % ABG O2 Capacity (16-24) mL/dl VBG pH (7.32-7.43) VBG pCO2 (40-60) VBG HCO3 (21-28) mmol/l VBG Total CO2 (22-28) mmol.L VBG O2 Sat (Calc) (40-65) % VBG Base Excess (0.0-2.0) mmol/L VBG Potassium (3.6-5.2) mmol/L Hgb O2 Saturation (95.0-98.0) % Glucose (65-105) mg/dl Lactate (0.7-2.1) mmol/L FiO2 % Sodium (132-148) mmol/L Potassium (3.6-5.0) mmol/L Chloride (98-107) mmol/L Carbon Dioxide (21-33) mmol/L Anion Gap (10-20) BUN (7-21) mg/dL Creatinine (0.7-1.2) mg/dl Est GFR ( Amer) Est GFR (Non-Af Amer) POC Glucose (mg/dL) (65-110) mg/dL Random Glucose (70-110) mg/dL Calcium (8.4-10.5) mg/dL Phosphorus (2.5-4.5) mg/dL Magnesium (1.7-2.2) mg/dL Total Bilirubin (0.2-1.3) mg/dL AST (14-36) U/L ALT (7-56) U/L Alkaline Phosphatase (38-126) U/L Troponin I ng/mL Total Protein (5.8-8.3) g/dL Albumin (3.0-4.8) g/dL Globulin gm/dL Albumin/Globulin Ratio (1.1-1.8) Procalcitonin (0.19-0.49) NG/ML Free T4 (0.78-2.19) ng/dL Thyroxine (T4) (5.5-11.0) ug/dL TSH 3rd Generation (0.46-4.68) mIU/mL Venous Blood Potassium (3.6-5.2) mmol/L B-Hydroxybutyrate 6.90 H (0.02-0.27) mM Laboratory Results - last 24 hr 03/05/18 03/05/18 03/05/18 09:40 13:42 14:55 WBC RBC Hgb Hct MCV MCH MCHC RDW Plt Count MPV Gran % Lymph % (Auto) [place] % (Auto) Eos % (Auto) Baso % (Auto) Gran # Lymph # (Auto) [place] # (Auto) Eos # (Auto) Baso # (Auto) Neutrophils % (Manual) Lymphocytes % (Manual) Monocytes % (Manual) APTT pCO2 pO2 HCO3 ABG pH ABG Total CO2 ABG O2 Saturation ABG O2 Content ABG Base Excess ABG Hemoglobin ABG Carboxyhemoglobin POC ABG HHb (Measured) ABG Methemoglobin ABG O2 Capacity VBG pH VBG pCO2 VBG HCO3 VBG Total CO2 VBG O2 Sat (Calc) VBG Base Excess VBG Potassium Hgb O2 Saturation Glucose Lactate FiO2 Sodium Potassium Chloride Carbon Dioxide Anion Gap BUN Creatinine Est GFR ( Amer) Est GFR (Non-Af Amer) POC Glucose (mg/dL) > 500 H* > 500 H* Random Glucose Calcium Phosphorus Magnesium Total Bilirubin AST ALT Alkaline Phosphatase Troponin I Total Protein Albumin Globulin Albumin/Globulin Ratio Procalcitonin Free T4 Thyroxine (T4) TSH 3rd Generation Venous Blood Potassium B-Hydroxybutyrate 6.90 H 03/05/18 03/05/18 03/05/18 16:36 17:16 17:22 WBC RBC Hgb Hct MCV MCH MCHC RDW Plt Count MPV Gran % Lymph % (Auto) [place] % (Auto) Eos % (Auto) Baso % (Auto) Gran # Lymph # (Auto) [place] # (Auto) Eos # (Auto) Baso # (Auto) Neutrophils % (Manual) Lymphocytes % (Manual) Monocytes % (Manual) APTT pCO2 pO2 HCO3 ABG pH ABG Total CO2 ABG O2 Saturation ABG O2 Content ABG Base Excess ABG Hemoglobin ABG Carboxyhemoglobin POC ABG HHb (Measured) ABG Methemoglobin ABG O2 Capacity VBG pH VBG pCO2 VBG HCO3 VBG Total CO2 VBG O2 Sat (Calc) VBG Base Excess VBG Potassium Hgb O2 Saturation Glucose Lactate FiO2 Sodium 126 L Potassium 4.1 Chloride 98 Carbon Dioxide 13 L Anion Gap 18 BUN 46 H Creatinine 1.9 H Est GFR ( Amer) 31 Est GFR (Non-Af Amer) 25 POC Glucose (mg/dL) > 500 H* > 500 H* Random Glucose 601 H* D Calcium 7.7 L Phosphorus Magnesium Total Bilirubin 1.3 AST 460 H D ALT 215 H Alkaline Phosphatase 69 Troponin I 32.60 H* D Total Protein 5.2 L Albumin 3.0 Globulin 2.3 Albumin/Globulin Ratio 1.3 Procalcitonin Free T4 Thyroxine (T4) TSH 3rd Generation Venous Blood Potassium B-Hydroxybutyrate 03/05/18 03/05/18 03/05/18 18:08 19:03 19:19 WBC RBC Hgb Hct MCV MCH MCHC RDW Plt Count MPV Gran % Lymph % (Auto) [place] % (Auto) Eos % (Auto) Baso % (Auto) Gran # Lymph # (Auto) [place] # (Auto) Eos # (Auto) Baso # (Auto) Neutrophils % (Manual) Lymphocytes % (Manual) Monocytes % (Manual) APTT pCO2 28 L pO2 65.0 L HCO3 13.8 L ABG pH 7.30 L ABG Total CO2 14.7 L ABG O2 Saturation 95.5 ABG O2 Content 12.6 L ABG Base Excess -11.4 L ABG Hemoglobin 9.5 L ABG Carboxyhemoglobin 0.9 POC ABG HHb (Measured) 4.4 ABG Methemoglobin 0.8 ABG O2 Capacity 13.2 L VBG pH VBG pCO2 VBG HCO3 VBG Total CO2 VBG O2 Sat (Calc) VBG Base Excess VBG Potassium Hgb O2 Saturation 93.8 L Glucose Lactate FiO2 21.0 Sodium Potassium Chloride Carbon Dioxide Anion Gap BUN Creatinine Est GFR ( Amer) Est GFR (Non-Af Amer) POC Glucose (mg/dL) > 500 H* > 500 H* Random Glucose Calcium Phosphorus Magnesium Total Bilirubin AST ALT Alkaline Phosphatase Troponin I Total Protein Albumin Globulin Albumin/Globulin Ratio Procalcitonin Free T4 Thyroxine (T4) TSH 3rd Generation Venous Blood Potassium B-Hydroxybutyrate 03/05/18 03/05/18 03/05/18 20:09 21:16 21:23 WBC RBC Hgb Hct MCV MCH MCHC RDW Plt Count MPV Gran % Lymph % (Auto) [place] % (Auto) Eos % (Auto) Baso % (Auto) Gran # Lymph # (Auto) [place] # (Auto) Eos # (Auto) Baso # (Auto) Neutrophils % (Manual) Lymphocytes % (Manual) Monocytes % (Manual) APTT pCO2 pO2 HCO3 ABG pH ABG Total CO2 ABG O2 Saturation ABG O2 Content ABG Base Excess ABG Hemoglobin ABG Carboxyhemoglobin POC ABG HHb (Measured) ABG Methemoglobin ABG O2 Capacity VBG pH VBG pCO2 VBG HCO3 VBG Total CO2 VBG O2 Sat (Calc) VBG Base Excess VBG Potassium Hgb O2 Saturation Glucose Lactate FiO2 Sodium Potassium Chloride Carbon Dioxide Anion Gap BUN Creatinine Est GFR ( Amer) Est GFR (Non-Af Amer) POC Glucose (mg/dL) > 500 H* 433 H* Random Glucose Calcium Phosphorus Magnesium Total Bilirubin AST ALT Alkaline Phosphatase Troponin I Total Protein Albumin Globulin Albumin/Globulin Ratio Procalcitonin 4.12 H Free T4 Thyroxine (T4) TSH 3rd Generation Venous Blood Potassium B-Hydroxybutyrate 03/05/18 03/05/18 03/06/18 21:56 23:44 01:10 WBC RBC Hgb Hct MCV MCH MCHC RDW Plt Count MPV Gran % Lymph % (Auto) [place] % (Auto) Eos % (Auto) Baso % (Auto) Gran # Lymph # (Auto) [place] # (Auto) Eos # (Auto) Baso # (Auto) Neutrophils % (Manual) Lymphocytes % (Manual) Monocytes % (Manual) APTT pCO2 pO2 HCO3 ABG pH ABG Total CO2 ABG O2 Saturation ABG O2 Content ABG Base Excess ABG Hemoglobin ABG Carboxyhemoglobin POC ABG HHb (Measured) ABG Methemoglobin ABG O2 Capacity VBG pH VBG pCO2 VBG HCO3 VBG Total CO2 VBG O2 Sat (Calc) VBG Base Excess VBG Potassium Hgb O2 Saturation Glucose Lactate FiO2 Sodium Potassium Chloride Carbon Dioxide Anion Gap BUN Creatinine Est GFR ( Amer) Est GFR (Non-Af Amer) POC Glucose (mg/dL) 341 H 306 H 252 H Random Glucose Calcium Phosphorus Magnesium Total Bilirubin AST ALT Alkaline Phosphatase Troponin I Total Protein Albumin Globulin Albumin/Globulin Ratio Procalcitonin Free T4 Thyroxine (T4) TSH 3rd Generation Venous Blood Potassium B-Hydroxybutyrate 03/06/18 03/06/18 03/06/18 01:30 01:30 01:30 WBC RBC Hgb Hct MCV MCH MCHC RDW Plt Count MPV Gran % Lymph % (Auto) [place] % (Auto) Eos % (Auto) Baso % (Auto) Gran # Lymph # (Auto) [place] # (Auto) Eos # (Auto) Baso # (Auto) Neutrophils % (Manual) Lymphocytes % (Manual) Monocytes % (Manual) APTT 47.4 H pCO2 pO2 32 HCO3 ABG pH ABG Total CO2 ABG O2 Saturation ABG O2 Content ABG Base Excess ABG Hemoglobin ABG Carboxyhemoglobin POC ABG HHb (Measured) ABG Methemoglobin ABG O2 Capacity VBG pH 7.18 L* VBG pCO2 47.0 VBG HCO3 17.5 L VBG Total CO2 18.9 L VBG O2 Sat (Calc) 62.2 VBG Base Excess -10.7 L VBG Potassium 3.3 L Hgb O2 Saturation Glucose 182 H Lactate 2.6 H FiO2 21.0 Sodium 133.0 133 Potassium 3.4 L Chloride 103.0 107 Carbon Dioxide 18 L Anion Gap 12 BUN 42 H Creatinine 1.7 H Est GFR ( Amer) 35 Est GFR (Non-Af Amer) 29 POC Glucose (mg/dL) Random Glucose 173 H Calcium 7.9 L Phosphorus Magnesium Total Bilirubin 0.7 AST 542 H ALT 251 H Alkaline Phosphatase 67 Troponin I 68.90 H* D Total Protein 5.3 L Albumin 2.8 L Globulin 2.5 Albumin/Globulin Ratio 1.1 Procalcitonin Free T4 Thyroxine (T4) TSH 3rd Generation Venous Blood Potassium 3.3 L B-Hydroxybutyrate 03/06/18 03/06/18 03/06/18 01:30 02:36 04:14 WBC 16.8 H RBC 3.59 Hgb 11.3 L Hct 32.5 L MCV 90.5 D MCH 31.5 MCHC 34.8 RDW 13.7 Plt Count 231 MPV 9.3 Gran % 82.5 H Lymph % (Auto) 5.1 L [place] % (Auto) 12.3 H Eos % (Auto) 0.0 L Baso % (Auto) 0.1 Gran # 13.86 H Lymph # (Auto) 0.9 L [place] # (Auto) 2.1 H Eos # (Auto) 0.0 Baso # (Auto) 0.01 Neutrophils % (Manual) Lymphocytes % (Manual) Monocytes % (Manual) APTT pCO2 pO2 HCO3 ABG pH ABG Total CO2 ABG O2 Saturation ABG O2 Content ABG Base Excess ABG Hemoglobin ABG Carboxyhemoglobin POC ABG HHb (Measured) ABG Methemoglobin ABG O2 Capacity VBG pH VBG pCO2 VBG HCO3 VBG Total CO2 VBG O2 Sat (Calc) VBG Base Excess VBG Potassium Hgb O2 Saturation Glucose Lactate FiO2 Sodium Potassium Chloride Carbon Dioxide Anion Gap BUN Creatinine Est GFR ( Amer) Est GFR (Non-Af Amer) POC Glucose (mg/dL) 146 H 127 H Random Glucose Calcium Phosphorus Magnesium Total Bilirubin AST ALT Alkaline Phosphatase Troponin I Total Protein Albumin Globulin Albumin/Globulin Ratio Procalcitonin Free T4 Thyroxine (T4) TSH 3rd Generation Venous Blood Potassium B-Hydroxybutyrate 03/06/18 03/06/18 03/06/18 05:00 05:30 05:30 WBC 21.3 H D RBC 3.77 Hgb 11.6 L Hct 34.2 L MCV 90.7 MCH 30.8 MCHC 33.9 RDW 13.8 Plt Count 259 MPV 9.3 Gran % 86.6 H Lymph % (Auto) 4.4 L [place] % (Auto) 8.9 H Eos % (Auto) 0.0 L Baso % (Auto) 0.1 Gran # 18.46 H Lymph # (Auto) 0.9 L [place] # (Auto) 1.9 H Eos # (Auto) 0.0 Baso # (Auto) 0.02 Neutrophils % (Manual) Lymphocytes % (Manual) Monocytes % (Manual) APTT pCO2 pO2 HCO3 ABG pH ABG Total CO2 ABG O2 Saturation ABG O2 Content ABG Base Excess ABG Hemoglobin ABG Carboxyhemoglobin POC ABG HHb (Measured) ABG Methemoglobin ABG O2 Capacity VBG pH VBG pCO2 VBG HCO3 VBG Total CO2 VBG O2 Sat (Calc) VBG Base Excess VBG Potassium Hgb O2 Saturation Glucose Lactate FiO2 Sodium 131 L Potassium 3.5 L Chloride 109 H Carbon Dioxide 13 L Anion Gap 13 BUN 40 H Creatinine 1.6 H Est GFR ( Amer) 38 Est GFR (Non-Af Amer) 31 POC Glucose (mg/dL) Random Glucose 106 Calcium 7.9 L Phosphorus 3.4 Magnesium 1.7 Total Bilirubin 0.7 AST 519 H ALT 241 H Alkaline Phosphatase 66 Troponin I Total Protein 5.3 L Albumin 2.9 L Globulin 2.4 Albumin/Globulin Ratio 1.2 Procalcitonin Free T4 1.56 Thyroxine (T4) 6.3 TSH 3rd Generation 2.87 Venous Blood Potassium B-Hydroxybutyrate 03/06/18 03/06/18 03/06/18 05:30 06:28 07:28 WBC RBC Hgb Hct MCV MCH MCHC RDW Plt Count MPV Gran % Lymph % (Auto) [place] % (Auto) Eos % (Auto) Baso % (Auto) Gran # Lymph # (Auto) [place] # (Auto) Eos # (Auto) Baso # (Auto) Neutrophils % (Manual) Lymphocytes % (Manual) Monocytes % (Manual) APTT pCO2 pO2 51 HCO3 ABG pH ABG Total CO2 ABG O2 Saturation ABG O2 Content ABG Base Excess ABG Hemoglobin ABG Carboxyhemoglobin POC ABG HHb (Measured) ABG Methemoglobin ABG O2 Capacity VBG pH 7.24 L VBG pCO2 36.0 L VBG HCO3 15.4 L VBG Total CO2 16.5 L VBG O2 Sat (Calc) 85.0 H VBG Base Excess -11.1 L VBG Potassium 3.2 L Hgb O2 Saturation Glucose 112 H Lactate 2.5 H FiO2 21.0 Sodium 134.0 Potassium Chloride 104.0 Carbon Dioxide Anion Gap BUN Creatinine Est GFR ( Amer) Est GFR (Non-Af Amer) POC Glucose (mg/dL) 159 H 111 H Random Glucose Calcium Phosphorus Magnesium Total Bilirubin AST ALT Alkaline Phosphatase Troponin I Total Protein Albumin Globulin Albumin/Globulin Ratio Procalcitonin Free T4 Thyroxine (T4) TSH 3rd Generation Venous Blood Potassium 3.2 L B-Hydroxybutyrate 03/06/18 03/06/18 03/06/18 08:44 09:32 10:42 WBC RBC Hgb Hct MCV MCH MCHC RDW Plt Count MPV Gran % Lymph % (Auto) [place] % (Auto) Eos % (Auto) Baso % (Auto) Gran # Lymph # (Auto) [place] # (Auto) Eos # (Auto) Baso # (Auto) Neutrophils % (Manual) Lymphocytes % (Manual) Monocytes % (Manual) APTT pCO2 pO2 HCO3 ABG pH ABG Total CO2 ABG O2 Saturation ABG O2 Content ABG Base Excess ABG Hemoglobin ABG Carboxyhemoglobin POC ABG HHb (Measured) ABG Methemoglobin ABG O2 Capacity VBG pH VBG pCO2 VBG HCO3 VBG Total CO2 VBG O2 Sat (Calc) VBG Base Excess VBG Potassium Hgb O2 Saturation Glucose Lactate FiO2 Sodium Potassium Chloride Carbon Dioxide Anion Gap BUN Creatinine Est GFR ( Amer) Est GFR (Non-Af Amer) POC Glucose (mg/dL) 129 H 114 H 127 H Random Glucose Calcium Phosphorus Magnesium Total Bilirubin AST ALT Alkaline Phosphatase Troponin I Total Protein Albumin Globulin Albumin/Globulin Ratio Procalcitonin Free T4 Thyroxine (T4) TSH 3rd Generation Venous Blood Potassium B-Hydroxybutyrate 03/06/18 03/06/18 03/06/18 11:00 11:00 11:51 WBC 20.9 H RBC 3.23 L Hgb 10.2 L Hct 29.5 L MCV 91.3 MCH 31.6 MCHC 34.6 RDW 14.1 Plt Count 208 MPV 9.4 Gran % Lymph % (Auto) [place] % (Auto) Eos % (Auto) Baso % (Auto) 0.0 Gran # Lymph # (Auto) [place] # (Auto) Eos # (Auto) Baso # (Auto) 0.01 Neutrophils % (Manual) 90 H Lymphocytes % (Manual) 4 L Monocytes % (Manual) 6 APTT pCO2 pO2 HCO3 ABG pH ABG Total CO2 ABG O2 Saturation ABG O2 Content ABG Base Excess ABG Hemoglobin ABG Carboxyhemoglobin POC ABG HHb (Measured) ABG Methemoglobin ABG O2 Capacity VBG pH VBG pCO2 VBG HCO3 VBG Total CO2 VBG O2 Sat (Calc) VBG Base Excess VBG Potassium Hgb O2 Saturation Glucose Lactate FiO2 Sodium 132 Potassium 7.3 H* D Chloride 119 H Carbon Dioxide 12 L Anion Gap 8 L BUN 26 H Creatinine 0.9 Est GFR ( Amer) > 60 Est GFR (Non-Af Amer) > 60 POC Glucose (mg/dL) 115 H Random Glucose 97 Calcium 5.0 L* Phosphorus Magnesium Total Bilirubin 0.7 AST 286 H D ALT 170 H Alkaline Phosphatase 46 Troponin I 25.90 H* D Total Protein 3.4 L Albumin 1.8 L Globulin 1.6 Albumin/Globulin Ratio 1.1 Procalcitonin Free T4 Thyroxine (T4) TSH 3rd Generation Venous Blood Potassium B-Hydroxybutyrate 03/06/18 03/06/18 03/06/18 12:39 13:00 13:33 WBC RBC Hgb Hct MCV MCH MCHC RDW Plt Count MPV Gran % Lymph % (Auto) [place] % (Auto) Eos % (Auto) Baso % (Auto) Gran # Lymph # (Auto) [place] # (Auto) Eos # (Auto) Baso # (Auto) Neutrophils % (Manual) Lymphocytes % (Manual) Monocytes % (Manual) APTT pCO2 pO2 HCO3 ABG pH ABG Total CO2 ABG O2 Saturation ABG O2 Content ABG Base Excess ABG Hemoglobin ABG Carboxyhemoglobin POC ABG HHb (Measured) ABG Methemoglobin ABG O2 Capacity VBG pH VBG pCO2 VBG HCO3 VBG Total CO2 VBG O2 Sat (Calc) VBG Base Excess VBG Potassium Hgb O2 Saturation Glucose Lactate FiO2 Sodium 131 L Potassium 3.8 Chloride 109 H Carbon Dioxide 16 L Anion Gap 10 BUN 33 H Creatinine 1.2 Est GFR ( Amer) 52 Est GFR (Non-Af Amer) 43 POC Glucose (mg/dL) 118 H 136 H Random Glucose 158 H Calcium 7.8 L Phosphorus Magnesium Total Bilirubin AST ALT Alkaline Phosphatase Troponin I Total Protein Albumin Globulin Albumin/Globulin Ratio Procalcitonin Free T4 Thyroxine (T4) TSH 3rd Generation Venous Blood Potassium B-Hydroxybutyrate 03/06/18 14:00 WBC RBC Hgb Hct MCV MCH MCHC RDW Plt Count MPV Gran % Lymph % (Auto) [place] % (Auto) Eos % (Auto) Baso % (Auto) Gran # Lymph # (Auto) [place] # (Auto) Eos # (Auto) Baso # (Auto) Neutrophils % (Manual) Lymphocytes % (Manual) Monocytes % (Manual) APTT > 400.0 H* pCO2 pO2 HCO3 ABG pH ABG Total CO2 ABG O2 Saturation ABG O2 Content ABG Base Excess ABG Hemoglobin ABG Carboxyhemoglobin POC ABG HHb (Measured) ABG Methemoglobin ABG O2 Capacity VBG pH VBG pCO2 VBG HCO3 VBG Total CO2 VBG O2 Sat (Calc) VBG Base Excess VBG Potassium Hgb O2 Saturation Glucose Lactate FiO2 Sodium Potassium Chloride Carbon Dioxide Anion Gap BUN Creatinine Est GFR ( Amer) Est GFR (Non-Af Amer) POC Glucose (mg/dL) Random Glucose Calcium Phosphorus Magnesium Total Bilirubin AST ALT Alkaline Phosphatase Troponin I Total Protein Albumin Globulin Albumin/Globulin Ratio Procalcitonin Free T4 Thyroxine (T4) TSH 3rd Generation Venous Blood Potassium B-Hydroxybutyrate EKG/Cardiology Studies: Cardiology / EKG Studies 03/05/18 15:26 EKG [ELECTROCARDIOGRAM] Stat Comment: Reason For Exam: elevated trop 03/05/18 23:49 EKG [ELECTROCARDIOGRAM] Stat Comment: Reason For Exam: r/o STEMI 03/06/18 06:00 ELECTROCARDIOGRAM Routine Comment: Reason For Exam: ST elevations and T wave depressons prior EKG Critical Care Progress Note - Nutrition Nutrition: Nutrition Category Date Time Status Liquid Diet [DIET] Diets 03/06/18 Dinner Ordered Assessment/Plan - Assessment and Plan (Free Text) Plan: Patient seen and examined on rounds with resident, agree with note with following additions/exceptions: Patient is 82 year old female with PMHx of HTN, HLD, CAD, DM2, breast ca s/p surgical removal of mass of L breast, hypothyroidism, diverticulosis admitted with dehydration, DKA, lactic acidosis, UTI, and NSTEMI Currently afebrile, BP stable, AAOx2, in NAD Labs, imaging, chart reviewed AG has closed, given Levemir 10u x 1, insulin drip to be shut off, given clear liquid diet meal Pt on IVF Troponin now downtrending, on Heparin drip, cardiology following, Dr Rothman UA positive on Zosyn, Vanco DKA, resolved Dehydration Hypokalemia +stool Occult Anemia NSTEMI UTI Recommend: - supp o2 as needed, duonebs PRN - Zosyn, Vanco - follow up ID, cultures - IVF, switch to 1/2NS - Check HgbA1C, TSH, Lipid Panel - Monitor HH - Monitor PTT on Heparin drip - ECHO - follow up cardiology - ASA - PPI IV BID - GI ppx - DVT ppx - Monitor in MICU Critical care time 40 minutes
--- NOTE | 2018-03-06 10:02 | CON ---
DATE OF CONSULTATION: 03/06/2018 LOCATION: ICU 128, Room 4. HISTORY OF PRESENT ILLNESS: This is an 82-year-old female with known history of type 2 insulin-requiring diabetes, presenting here with altered mental status and generalized body weakness as noted by the daughter today and is being referred now for evaluation of diabetic ketoacidosis and dehydration with hyponatremia as noted thereof. PAST MEDICAL HISTORY: As mentioned above, history of type 2 insulin-requiring diabetes on a combination of Lantus and Humalog. On further clarification, the patient is actually using Lantus at 12 units at bedtime and Humalog given as 4, 5 and 6 units t.i.d. before meals as ordered. No recent home glucose monitoring values are available and the daughter thinks of the same. Her mother has not given her insulin over the last few days prior to admission. History of hypertension and dyslipidemia, history of coronary artery disease with significant coronary artery bypass graft surgery done twice in 1982 and 2003. History of hypothyroidism, on levothyroxine given as 100 mcg once daily. History of left breast carcinoma with subsequent left breast lumpectomy as undertaken. FAMILY HISTORY: Positive for hypertension and heart disease. SOCIAL HISTORY: The patient has supportive family. No known substance use. She lives alone, but has a very supportive daughter and family. REVIEW OF SYSTEMS: As noted by the family. She has had increasing bouts of dizziness and lightheadedness with confusion, disorientation and increasing hypersomnolence and lethargy. No chest pains or palpitations, but admits to progressive shortness of breath initially on exertion and then at rest. Her oral intake has been variable with nausea, dyspepsia, anorexia and vague upper abdominal pains with marked polyuria, nocturia and polydipsia. PHYSICAL EXAMINATION: GENERAL: There is an average built female, in no apparent distress. VITAL SIGNS: Blood pressure of 140/80, pulse of 100 beats per minute and regular, temperature 98, respirations 20. Height is 5'5", weight is 220 pounds. HEENT: Head normocephalic. Eyes anicteric with pink conjunctivae. Funduscopy not possible at this time. Ears, nose and throat otherwise normal. NECK: Supple. Thyroid gland is normal in size. No carotid bruits or cervical adenopathy. CARDIOPULMONARY: Some adynamic precordium. S1, S2 is rapid and regular. LUNGS: Clear to auscultation. ABDOMEN: Flat, soft with positive bowel sounds. EXTREMITIES: No peripheral edema. Pulses are +2 bilaterally. LABORATORY DATA: Her chemistry shows a BUN of 45, sodium 122, potassium 5.6, chloride 85, CO2 is 9, glucose 936, and creatinine is 2.0. Her troponin is 8.88. ASSESSMENT: This is an 82-year-old female with uncontrolled and decompensated type 2 insulin-requiring diabetes, presenting here with altered mental status, generalized body weakness, supervening diabetic ketoacidosis, dehydration with spurious hyponatremia, and also concomitant acute myocardial infarction of the [id number] type with significant underlying cardiac vasculopathy and previous coronary artery bypass graft surgery done twice as noted. PLAN OF MANAGEMENT: We will continue and concur with the vigorous IV hydration with normal saline running at 200 mL/h. We will also continue the intensive insulin therapy with an insulin drip infusion as given and observe her metabolic response, and once the CO2 is at least above 18 with closure of the anion gap, then we can safely switch her over to a more physiologic basal and bolus insulin drug combination as indicated. We will obtain serial chemistries and supplement accordingly as needed. We will follow with you. Myrtle Moon MD
[2018-03-06] MEDS: Piperacillin/Tazobact 2.25gm 2.25 GM/100 ML BAG IVPB SCH ×3 (10:12→21:38)
[2018-03-06] MEDS: Vancomycin 1gm in NS 250ml 1 GM/250 ML BAG IVPB SCH (10:12)
--- NOTE | 2018-03-06 10:13 | CP.PCM.CON ---
<Melo Sahni - Last Filed: 03/06/18 15:33> History of Present Illness - History of Present Illness History of Present Illness: PGY-4 GI Fellow Consult Note The following mostly obtained from chart review and hospital staff due to patient clinical condition Pt is an 82 yo WF with HTN, HLD, DM, Breast CA (s/p lumpectomy, in remission), CAD s/p CABG x2 (,) presenting with altered mental status. Patient's daughter noticed that patient sounded altered from baseline over the phone. There was some concern about compliance with insulin regimen. Therefore, patient was sent in for evaluation. In the ED, she was found to be in DKA with NSTEMI and critically high troponins from 2 -> 68.9 this AM. BP has been as low as 60s/30 and pt requiring pressor for BP support. Hgb was found to be 10.7 from baseline of ~12; GI called for Hypotension and FOBT positive stool. During my encounter, pt is tired but waked to voice during my encounter but is only answering minimal questions. She states that she feel "off" and that she "just wants to ; put me in the garbage and God will find me." What little questions she did answer was that she denied any acute pain complaints and was able to tell me that stool is brown though before returning to discussing that she "wanted to go to [facility] Unable to obtain full ROS due to clinical condition PMH: HTN, HLD, DM, Breast Cancer and CABGx2 (1982 and 1995) PSH: left breast Lumpectomy, CABG x2 Home meds: ASA, lisinopril, insulin Lispro and Glargine, levothyroxine, simvastatin Family Hx: denies Social: denies x3 All: NKDA Past Patient History - Infectious Disease Hx of Infectious Diseases: None - Past Social History Smoking Status: Never Smoked - CARDIAC Hx Cardiac Disorders: Yes Other/Comment: triple bypass - PULMONARY Hx Respiratory Disorders: No - NEUROLOGICAL Hx Neurological Disorder: No - HEENT Hx HEENT Problems: No - RENAL Hx Chronic Kidney Disease: No - ENDOCRINE/METABOLIC Hx Endocrine Disorders: Yes Hx Diabetes Mellitus Type 2: Yes - HEMATOLOGICAL/ONCOLOGICAL Hx Blood Disorders: No - INTEGUMENTARY Hx Dermatological Problems: No - MUSCULOSKELETAL/RHEUMATOLOGICAL Hx Musculoskeletal Disorders: No - GASTROINTESTINAL Hx Gastrointestinal Disorders: No - GENITOURINARY/GYNECOLOGICAL Hx Genitourinary Disorders: No - PSYCHIATRIC Hx Psychophysiologic Disorder: No Hx Substance Use: No - SURGICAL HISTORY Hx Open Heart Surgery: Yes (CABG x2) Other/Comment: breast Ca R lumphectomy - ANESTHESIA Hx Anesthesia: Yes Hx Anesthesia Reactions: No Hx Malignant Hyperthermia: No Meds Allergies/Adverse Reactions: Allergies Allergy/AdvReac Type Severity Reaction Status Date / Time No Known Allergies Allergy Verified 03/05/18 09:24 - Medications Medications: Current Medications Aspirin (Aspirin Chewable) 81 mg PO DAILY OZZY Vancomycin HCl (Vancomycin 1gm) 1 gm in 250 mls @ 167 mls/hr IVPB DAILY OZZY; P rotocol Insulin Human Regular 100 (units/ Sodium Chloride) 100 mls @ 5.44 mls/hr IV .[id number] PRN; Protocol PRN Reason: TITRATE PER PROTOCOL Last Admin: 03/05/18 20:05 Dose: 0.29 units/kg/hr, 16 mls/hr Heparin Sodium/Sodium Chloride (Heparin 45279 Units/250ml 1/2 Normal Saline) 25,000 units in 250 mls @ 6.532 mls/hr IV .Q24H OZZY; Protocol Last Titration: 03/06/18 06:33 Dose: 14 units/kg/hr, 7.62 mls/hr NOREPINEPHRINE BIT/0.9 % NACL (Levophed 4 Mg/ 250 Ml Ns Premixed) 4 mg in 250 mls @ 15 mls/hr IV .[id number] PRN; Protocol PRN Reason: TITRATE PER MD ORDER Dextrose/Sodium Chloride (Dextrose 5%/0.45% Ns 1000 Ml) 1,000 mls @ 100 mls/hr IV .Q10H OZZY Potassium Chloride (Potassium Chloride 10 Meq/100 Ml) 10 meq in 100 mls @ 50 mls/hr IVPB Q2H OZZY Stop: 03/06/18 11:29 Last Admin: 03/06/18 08:20 Dose: 50 mls/hr Piperacillin Sod/Tazobactam Sod (Zosyn 2.25 Gm In 0.9% 100 Ml) 2.25 gm in 100 mls @ 100 mls/hr IVPB Q12 OZZY; Protocol Levothyroxine Sodium (Synthroid) 100 mcg PO 0600 OZZY Last Admin: 03/06/18 08:20 Dose: 100 mcg Pantoprazole Sodium (Protonix Inj) 40 mg IVP Q12 OZZY Physical Exam - Constitutional Appears: Toxic, In Acute Distress (mild) - Head Exam Head Exam: ATRAUMATIC, NORMAL INSPECTION - Eye Exam Eye Exam: EOMI. absent: Scleral icterus - ENT Exam ENT Exam: Mucous Membranes Dry. absent: Mucous Membranes Moist - Respiratory Exam Respiratory Exam: Clear to Auscultation Bilateral (anteriorly). absent: Accessory Muscle Use - Cardiovascular Exam Cardiovascular Exam: REGULAR RHYTHM, RRR. absent: Bradycardia, Tachycardia - GI/Abdominal Exam GI & Abdominal Exam: Normal Bowel Sounds, Soft. absent: Bruit, Diminished Bowel Sounds, Distended, Firm, Guarding, Hernia, Mass, Organomegaly, Pulsatile Mass, Rebound, Rigid, Tenderness - Rectal Exam Rectal Exam: Deferred - Extremities Exam Extremities exam: Positive for: normal inspection - Neurological Exam Additional comments: tried, awakes to voice - Psychiatric Exam Psychiatric exam: Depressed, Flat Affect - Skin Additional comments: Scattered area of hypopigmentation Results - Vital Signs Recent Vital Signs: Last Vital Signs Temp 98 F 03/05/18 12:40 Pulse 74 03/06/18 06:00 Resp 20 03/05/18 22:50 BP 72/24 L 03/05/18 22:42 Pulse Ox 95 03/05/18 22:50 - Labs Result Diagrams: 03/06/18 11:00 03/06/18 13:00 Labs: Laboratory Results - last 24 hr 03/05/18 03/05/18 03/05/18 09:14 09:30 09:40 WBC RBC Hgb Hct MCV MCH MCHC RDW Plt Count MPV Gran % Lymph % (Auto) [place] % (Auto) Eos % (Auto) Baso % (Auto) Gran # Lymph # (Auto) [place] # (Auto) Eos # (Auto) Baso # (Auto) Neutrophils % (Manual) 86 H Band Neutrophils % 1 Lymphocytes % (Manual) 3 L Monocytes % (Manual) 7 H Eosinophils % (Manual) 1 Metamyelocytes % 2 Platelet Evaluation Normal APTT pCO2 pO2 HCO3 ABG pH ABG Total CO2 ABG O2 Saturation ABG O2 Content ABG Base Excess ABG Hemoglobin ABG Carboxyhemoglobin POC ABG HHb (Measured) ABG Methemoglobin ABG O2 Capacity VBG pH VBG pCO2 VBG HCO3 VBG Total CO2 VBG O2 Sat (Calc) VBG Base Excess VBG Potassium Hgb O2 Saturation Sodium Chloride Glucose Lactate FiO2 Potassium Carbon Dioxide Anion Gap BUN Creatinine Est GFR ( Amer) Est GFR (Non-Af Amer) POC Glucose (mg/dL) > 500 H* Random Glucose Calcium Phosphorus Magnesium Total Bilirubin AST ALT Alkaline Phosphatase Troponin I Total Protein Albumin Globulin Albumin/Globulin Ratio Free T4 Thyroxine (T4) TSH 3rd Generation Venous Blood Potassium Salicylates < 1 L Acetaminophen < 10.0 L B-Hydroxybutyrate 03/05/18 03/05/18 03/05/18 09:40 12:45 13:30 WBC RBC Hgb Hct MCV MCH MCHC RDW Plt Count MPV Gran % Lymph % (Auto) [place] % (Auto) Eos % (Auto) Baso % (Auto) Gran # Lymph # (Auto) [place] # (Auto) Eos # (Auto) Baso # (Auto) Neutrophils % (Manual) Band Neutrophils % Lymphocytes % (Manual) Monocytes % (Manual) Eosinophils % (Manual) Metamyelocytes % Platelet Evaluation APTT pCO2 pO2 234 H HCO3 ABG pH ABG Total CO2 ABG O2 Saturation ABG O2 Content ABG Base Excess ABG Hemoglobin ABG Carboxyhemoglobin POC ABG HHb (Measured) ABG Methemoglobin ABG O2 Capacity VBG pH 6.95 L* VBG pCO2 35.0 L VBG HCO3 7.7 L VBG Total CO2 8.8 L VBG O2 Sat (Calc) 98.9 H VBG Base Excess -23.7 L VBG Potassium 4.9 Hgb O2 Saturation Sodium 127.0 L Chloride 86.0 L Glucose > 750 H* Lactate 8.7 H* FiO2 21.0 Potassium Carbon Dioxide Anion Gap BUN Creatinine Est GFR ( Amer) Est GFR (Non-Af Amer) POC Glucose (mg/dL) Random Glucose Calcium Phosphorus Magnesium Total Bilirubin AST ALT Alkaline Phosphatase Troponin I 2.07 H* D 8.88 H* D Total Protein Albumin Globulin Albumin/Globulin Ratio Free T4 Thyroxine (T4) TSH 3rd Generation Venous Blood Potassium 4.9 Salicylates Acetaminophen B-Hydroxybutyrate 6.90 H 03/05/18 03/05/18 03/05/18 13:42 14:55 16:36 WBC RBC Hgb Hct MCV MCH MCHC RDW Plt Count MPV Gran % Lymph % (Auto) [place] % (Auto) Eos % (Auto) Baso % (Auto) Gran # Lymph # (Auto) [place] # (Auto) Eos # (Auto) Baso # (Auto) Neutrophils % (Manual) Band Neutrophils % Lymphocytes % (Manual) Monocytes % (Manual) Eosinophils % (Manual) Metamyelocytes % Platelet Evaluation APTT pCO2 pO2 HCO3 ABG pH ABG Total CO2 ABG O2 Saturation ABG O2 Content ABG Base Excess ABG Hemoglobin ABG Carboxyhemoglobin POC ABG HHb (Measured) ABG Methemoglobin ABG O2 Capacity VBG pH VBG pCO2 VBG HCO3 VBG Total CO2 VBG O2 Sat (Calc) VBG Base Excess VBG Potassium Hgb O2 Saturation Sodium Chloride Glucose Lactate FiO2 Potassium Carbon Dioxide Anion Gap BUN Creatinine Est GFR ( Amer) Est GFR (Non-Af Amer) POC Glucose (mg/dL) > 500 H* > 500 H* > 500 H* Random Glucose Calcium Phosphorus Magnesium Total Bilirubin AST ALT Alkaline Phosphatase Troponin I Total Protein Albumin Globulin Albumin/Globulin Ratio Free T4 Thyroxine (T4) TSH 3rd Generation Venous Blood Potassium Salicylates Acetaminophen B-Hydroxybutyrate 03/05/18 03/05/18 03/05/18 17:16 17:22 18:08 WBC RBC Hgb Hct MCV MCH MCHC RDW Plt Count MPV Gran % Lymph % (Auto) [place] % (Auto) Eos % (Auto) Baso % (Auto) Gran # Lymph # (Auto) [place] # (Auto) Eos # (Auto) Baso # (Auto) Neutrophils % (Manual) Band Neutrophils % Lymphocytes % (Manual) Monocytes % (Manual) Eosinophils % (Manual) Metamyelocytes % Platelet Evaluation APTT pCO2 pO2 HCO3 ABG pH ABG Total CO2 ABG O2 Saturation ABG O2 Content ABG Base Excess ABG Hemoglobin ABG Carboxyhemoglobin POC ABG HHb (Measured) ABG Methemoglobin ABG O2 Capacity VBG pH VBG pCO2 VBG HCO3 VBG Total CO2 VBG O2 Sat (Calc) VBG Base Excess VBG Potassium Hgb O2 Saturation Sodium 126 L Chloride 98 Glucose Lactate FiO2 Potassium 4.1 Carbon Dioxide 13 L Anion Gap 18 BUN 46 H Creatinine 1.9 H Est GFR ( Amer) 31 Est GFR (Non-Af Amer) 25 POC Glucose (mg/dL) > 500 H* > 500 H* Random Glucose 601 H* D Calcium 7.7 L Phosphorus Magnesium Total Bilirubin 1.3 AST 460 H D ALT 215 H Alkaline Phosphatase 69 Troponin I 32.60 H* D Total Protein 5.2 L Albumin 3.0 Globulin 2.3 Albumin/Globulin Ratio 1.3 Free T4 Thyroxine (T4) TSH 3rd Generation Venous Blood Potassium Salicylates Acetaminophen B-Hydroxybutyrate 03/05/18 03/05/18 03/05/18 19:03 19:19 20:09 WBC RBC Hgb Hct MCV MCH MCHC RDW Plt Count MPV Gran % Lymph % (Auto) [place] % (Auto) Eos % (Auto) Baso % (Auto) Gran # Lymph # (Auto) [place] # (Auto) Eos # (Auto) Baso # (Auto) Neutrophils % (Manual) Band Neutrophils % Lymphocytes % (Manual) Monocytes % (Manual) Eosinophils % (Manual) Metamyelocytes % Platelet Evaluation APTT pCO2 28 L pO2 65.0 L HCO3 13.8 L ABG pH 7.30 L ABG Total CO2 14.7 L ABG O2 Saturation 95.5 ABG O2 Content 12.6 L ABG Base Excess -11.4 L ABG Hemoglobin 9.5 L ABG Carboxyhemoglobin 0.9 POC ABG HHb (Measured) 4.4 ABG Methemoglobin 0.8 ABG O2 Capacity 13.2 L VBG pH VBG pCO2 VBG HCO3 VBG Total CO2 VBG O2 Sat (Calc) VBG Base Excess VBG Potassium Hgb O2 Saturation 93.8 L Sodium Chloride Glucose Lactate FiO2 21.0 Potassium Carbon Dioxide Anion Gap BUN Creatinine Est GFR ( Amer) Est GFR (Non-Af Amer) POC Glucose (mg/dL) > 500 H* > 500 H* Random Glucose Calcium Phosphorus Magnesium Total Bilirubin AST ALT Alkaline Phosphatase Troponin I Total Protein Albumin Globulin Albumin/Globulin Ratio Free T4 Thyroxine (T4) TSH 3rd Generation Venous Blood Potassium Salicylates Acetaminophen B-Hydroxybutyrate 03/05/18 03/05/18 03/05/18 21:16 21:56 23:44 WBC RBC Hgb Hct MCV MCH MCHC RDW Plt Count MPV Gran % Lymph % (Auto) [place] % (Auto) Eos % (Auto) Baso % (Auto) Gran # Lymph # (Auto) [place] # (Auto) Eos # (Auto) Baso # (Auto) Neutrophils % (Manual) Band Neutrophils % Lymphocytes % (Manual) Monocytes % (Manual) Eosinophils % (Manual) Metamyelocytes % Platelet Evaluation APTT pCO2 pO2 HCO3 ABG pH ABG Total CO2 ABG O2 Saturation ABG O2 Content ABG Base Excess ABG Hemoglobin ABG Carboxyhemoglobin POC ABG HHb (Measured) ABG Methemoglobin ABG O2 Capacity VBG pH VBG pCO2 VBG HCO3 VBG Total CO2 VBG O2 Sat (Calc) VBG Base Excess VBG Potassium Hgb O2 Saturation Sodium Chloride Glucose Lactate FiO2 Potassium Carbon Dioxide Anion Gap BUN Creatinine Est GFR ( Amer) Est GFR (Non-Af Amer) POC Glucose (mg/dL) 433 H* 341 H 306 H Random Glucose Calcium Phosphorus Magnesium Total Bilirubin AST ALT Alkaline Phosphatase Troponin I Total Protein Albumin Globulin Albumin/Globulin Ratio Free T4 Thyroxine (T4) TSH 3rd Generation Venous Blood Potassium Salicylates Acetaminophen B-Hydroxybutyrate 03/06/18 03/06/18 03/06/18 01:10 01:30 01:30 WBC RBC Hgb Hct MCV MCH MCHC RDW Plt Count MPV Gran % Lymph % (Auto) [place] % (Auto) Eos % (Auto) Baso % (Auto) Gran # Lymph # (Auto) [place] # (Auto) Eos # (Auto) Baso # (Auto) Neutrophils % (Manual) Band Neutrophils % Lymphocytes % (Manual) Monocytes % (Manual) Eosinophils % (Manual) Metamyelocytes % Platelet Evaluation APTT pCO2 pO2 32 HCO3 ABG pH ABG Total CO2 ABG O2 Saturation ABG O2 Content ABG Base Excess ABG Hemoglobin ABG Carboxyhemoglobin POC ABG HHb (Measured) ABG Methemoglobin ABG O2 Capacity VBG pH 7.18 L* VBG pCO2 47.0 VBG HCO3 17.5 L VBG Total CO2 18.9 L VBG O2 Sat (Calc) 62.2 VBG Base Excess -10.7 L VBG Potassium 3.3 L Hgb O2 Saturation Sodium 133.0 133 Chloride 103.0 107 Glucose 182 H Lactate 2.6 H FiO2 21.0 Potassium 3.4 L Carbon Dioxide 18 L Anion Gap 12 BUN 42 H Creatinine 1.7 H Est GFR ( Amer) 35 Est GFR (Non-Af Amer) 29 POC Glucose (mg/dL) 252 H Random Glucose 173 H Calcium 7.9 L Phosphorus Magnesium Total Bilirubin 0.7 AST 542 H ALT 251 H Alkaline Phosphatase 67 Troponin I 68.90 H* D Total Protein 5.3 L Albumin 2.8 L Globulin 2.5 Albumin/Globulin Ratio 1.1 Free T4 Thyroxine (T4) TSH 3rd Generation Venous Blood Potassium 3.3 L Salicylates Acetaminophen B-Hydroxybutyrate 03/06/18 03/06/18 03/06/18 01:30 01:30 02:36 WBC 16.8 H RBC 3.59 Hgb 11.3 L Hct 32.5 L MCV 90.5 D MCH 31.5 MCHC 34.8 RDW 13.7 Plt Count 231 MPV 9.3 Gran % 82.5 H Lymph % (Auto) 5.1 L [place] % (Auto) 12.3 H Eos % (Auto) 0.0 L Baso % (Auto) 0.1 Gran # 13.86 H Lymph # (Auto) 0.9 L [place] # (Auto) 2.1 H Eos # (Auto) 0.0 Baso # (Auto) 0.01 Neutrophils % (Manual) Band Neutrophils % Lymphocytes % (Manual) Monocytes % (Manual) Eosinophils % (Manual) Metamyelocytes % Platelet Evaluation APTT 47.4 H pCO2 pO2 HCO3 ABG pH ABG Total CO2 ABG O2 Saturation ABG O2 Content ABG Base Excess ABG Hemoglobin ABG Carboxyhemoglobin POC ABG HHb (Measured) ABG Methemoglobin ABG O2 Capacity VBG pH VBG pCO2 VBG HCO3 VBG Total CO2 VBG O2 Sat (Calc) VBG Base Excess VBG Potassium Hgb O2 Saturation Sodium Chloride Glucose Lactate FiO2 Potassium Carbon Dioxide Anion Gap BUN Creatinine Est GFR ( Amer) Est GFR (Non-Af Amer) POC Glucose (mg/dL) 146 H Random Glucose Calcium Phosphorus Magnesium Total Bilirubin AST ALT Alkaline Phosphatase Troponin I Total Protein Albumin Globulin Albumin/Globulin Ratio Free T4 Thyroxine (T4) TSH 3rd Generation Venous Blood Potassium Salicylates Acetaminophen B-Hydroxybutyrate 03/06/18 03/06/18 03/06/18 04:14 05:00 05:30 WBC 21.3 H D RBC 3.77 Hgb 11.6 L Hct 34.2 L MCV 90.7 MCH 30.8 MCHC 33.9 RDW 13.8 Plt Count 259 MPV 9.3 Gran % 86.6 H Lymph % (Auto) 4.4 L [place] % (Auto) 8.9 H Eos % (Auto) 0.0 L Baso % (Auto) 0.1 Gran # 18.46 H Lymph # (Auto) 0.9 L [place] # (Auto) 1.9 H Eos # (Auto) 0.0 Baso # (Auto) 0.02 Neutrophils % (Manual) Band Neutrophils % Lymphocytes % (Manual) Monocytes % (Manual) Eosinophils % (Manual) Metamyelocytes % Platelet Evaluation APTT pCO2 pO2 HCO3 ABG pH ABG Total CO2 ABG O2 Saturation ABG O2 Content ABG Base Excess ABG Hemoglobin ABG Carboxyhemoglobin POC ABG HHb (Measured) ABG Methemoglobin ABG O2 Capacity VBG pH VBG pCO2 VBG HCO3 VBG Total CO2 VBG O2 Sat (Calc) VBG Base Excess VBG Potassium Hgb O2 Saturation Sodium 131 L Chloride 109 H Glucose Lactate FiO2 Potassium 3.5 L Carbon Dioxide 13 L Anion Gap 13 BUN 40 H Creatinine 1.6 H Est GFR ( Amer) 38 Est GFR (Non-Af Amer) 31 POC Glucose (mg/dL) 127 H Random Glucose 106 Calcium 7.9 L Phosphorus 3.4 Magnesium 1.7 Total Bilirubin 0.7 AST 519 H ALT 241 H Alkaline Phosphatase 66 Troponin I Total Protein 5.3 L Albumin 2.9 L Globulin 2.4 Albumin/Globulin Ratio 1.2 Free T4 Thyroxine (T4) TSH 3rd Generation Venous Blood Potassium Salicylates Acetaminophen B-Hydroxybutyrate 03/06/18 03/06/18 03/06/18 05:30 05:30 06:28 WBC RBC Hgb Hct MCV MCH MCHC RDW Plt Count MPV Gran % Lymph % (Auto) [place] % (Auto) Eos % (Auto) Baso % (Auto) Gran # Lymph # (Auto) [place] # (Auto) Eos # (Auto) Baso # (Auto) Neutrophils % (Manual) Band Neutrophils % Lymphocytes % (Manual) Monocytes % (Manual) Eosinophils % (Manual) Metamyelocytes % Platelet Evaluation APTT pCO2 pO2 51 HCO3 ABG pH ABG Total CO2 ABG O2 Saturation ABG O2 Content ABG Base Excess ABG Hemoglobin ABG Carboxyhemoglobin POC ABG HHb (Measured) ABG Methemoglobin ABG O2 Capacity VBG pH 7.24 L VBG pCO2 36.0 L VBG HCO3 15.4 L VBG Total CO2 16.5 L VBG O2 Sat (Calc) 85.0 H VBG Base Excess -11.1 L VBG Potassium 3.2 L Hgb O2 Saturation Sodium 134.0 Chloride 104.0 Glucose 112 H Lactate 2.5 H FiO2 21.0 Potassium Carbon Dioxide Anion Gap BUN Creatinine Est GFR ( Amer) Est GFR (Non-Af Amer) POC Glucose (mg/dL) 159 H Random Glucose Calcium Phosphorus Magnesium Total Bilirubin AST ALT Alkaline Phosphatase Troponin I Total Protein Albumin Globulin Albumin/Globulin Ratio Free T4 1.56 Thyroxine (T4) 6.3 TSH 3rd Generation 2.87 Venous Blood Potassium 3.2 L Salicylates Acetaminophen B-Hydroxybutyrate 03/06/18 03/06/18 03/06/18 07:28 08:44 09:32 WBC RBC Hgb Hct MCV MCH MCHC RDW Plt Count MPV Gran % Lymph % (Auto) [place] % (Auto) Eos % (Auto) Baso % (Auto) Gran # Lymph # (Auto) [place] # (Auto) Eos # (Auto) Baso # (Auto) Neutrophils % (Manual) Band Neutrophils % Lymphocytes % (Manual) Monocytes % (Manual) Eosinophils % (Manual) Metamyelocytes % Platelet Evaluation APTT pCO2 pO2 HCO3 ABG pH ABG Total CO2 ABG O2 Saturation ABG O2 Content ABG Base Excess ABG Hemoglobin ABG Carboxyhemoglobin POC ABG HHb (Measured) ABG Methemoglobin ABG O2 Capacity VBG pH VBG pCO2 VBG HCO3 VBG Total CO2 VBG O2 Sat (Calc) VBG Base Excess VBG Potassium Hgb O2 Saturation Sodium Chloride Glucose Lactate FiO2 Potassium Carbon Dioxide Anion Gap BUN Creatinine Est GFR ( Amer) Est GFR (Non-Af Amer) POC Glucose (mg/dL) 111 H 129 H 114 H Random Glucose Calcium Phosphorus Magnesium Total Bilirubin AST ALT Alkaline Phosphatase Troponin I Total Protein Albumin Globulin Albumin/Globulin Ratio Free T4 Thyroxine (T4) TSH 3rd Generation Venous Blood Potassium Salicylates Acetaminophen B-Hydroxybutyrate Assessment & Plan - Assessment and Plan (Free Text) Assessment: 82 yo WF with CAD s/p CABG, DM, HTN, Breast CA s/p lumpectomy in remission presenting with AMS, found to be in DKA and ACS. GI consulted for Hypotension and FOBT positive. # Hypotension, FOBT+: Suspect the Hypotension related to DKA with volume depletion and ACS/NSTEMI, possible Sepsis/UTI picture. Hgb is improved this AM to 11.6 from 10.7 on admission even since starting anticoagulation; therefore, g iven Hgb nearly back to baseline, active GI bleed unlikely. Reportedly had CSPY ~ 10 years ago that was normal per notes. # Transamnitis: Suspect related to ischemic hepatitis in the setting of hypot ension/volume depletion due to above # DKA, ACS/NSTEMI: Management per primary and consultants. On heparin gtt, ASA+Clopidogrel held per Cardiology broad spectrum Abx. Plan: - IV PPI BID for now - Monitor CBC, CMP - Abd US, check LDH - Screen Viral Hep - No plans for Endoscopic eval at this point as no signs of active bleeding and needs DKA/ACS resolved prior - Consider Palliative care consult given pt's desire to not be intubated in setting of critical illness - Need goals of care discussion with daughter/family/HCPOA Pt discussed with Dr. Holt; please see attestation for further recs/changes Melo Sahni, PGY-4 <Shelly Holt V - Last Filed: 03/06/18 23:01> Meds - Medications Medications: Current Medications Aspirin (Aspirin Chewable) 81 mg PO DAILY OZZY Last Admin: 03/06/18 10:13 Dose: 81 mg Vancomycin HCl (Vancomycin 1gm) 1 gm in 250 mls @ 167 mls/hr IVPB DAILY OZZY; Protocol Last Admin: 03/06/18 10:12 Dose: 167 mls/hr Heparin Sodium/Sodium Chloride (Heparin 06424 Units/250ml 1/2 Normal Saline) 25,000 units in 250 mls @ 6.532 mls/hr IV .Q24H OZZY; Protocol Last Titration: 03/06/18 17:00 Dose: 12 units/kg/hr, 6.532 mls/hr NOREPINEPHRINE BIT/0.9 % NACL (Levophed 4 Mg/ 250 Ml Ns Premixed) 4 mg in 250 mls @ 15 mls/hr IV .[id number] PRN; Protocol PRN Reason: TITRATE PER MD ORDER Piperacillin Sod/Tazobactam Sod (Zosyn 2.25 Gm In 0.9% 100 Ml) 2.25 gm in 100 mls @ 100 mls/hr IVPB Q12 OZZY; Protocol Last Admin: 03/06/18 21:38 Dose: 100 mls/hr Sodium Chloride (Sodium Chloride 0.9%) 1,000 mls @ 100 mls/hr IV .Q10H [facility] Levothyroxine Sodium (Synthroid) 100 mcg PO 0600 [facility] Last Admin: 03/06/18 08:20 Dose: 100 mcg Pantoprazole Sodium (Protonix Inj) 40 mg IVP Q12 OZZY Last Admin: 03/06/18 21:37 Dose: 40 mg Results - Vital Signs Recent Vital Signs: Last Vital Signs Temp 98.5 F 03/06/18 20:00 Pulse 82 03/06/18 20:00 Resp 20 03/06/18 20:00 BP 110/53 L 03/06/18 20:00 Pulse Ox 94 L 03/06/18 20:00 - Labs Result Diagrams: 03/06/18 19:25 03/06/18 19:25 Labs: Laboratory Results - last 24 hr 03/05/18 03/05/18 03/06/18 21:23 23:44 01:10 WBC RBC Hgb Hct MCV MCH MCHC RDW Plt Count MPV Gran % Lymph % (Auto) [place] % (Auto) Eos % (Auto) Baso % (Auto) Gran # Lymph # (Auto) [place] # (Auto) Eos # (Auto) Baso # (Auto) Neutrophils % (Manual) Lymphocytes % (Manual) Monocytes % (Manual) APTT pO2 VBG pH VBG pCO2 VBG HCO3 VBG Total CO2 VBG O2 Sat (Calc) VBG Base Excess VBG Potassium Sodium Chloride Glucose Lactate FiO2 Potassium Carbon Dioxide Anion Gap BUN Creatinine Est GFR ( Amer) Est GFR (Non-Af Amer) POC Glucose (mg/dL) 306 H 252 H Random Glucose Calcium Phosphorus Magnesium Total Bilirubin AST ALT Alkaline Phosphatase Lactate Dehydrogenase Troponin I Total Protein Albumin Globulin Albumin/Globulin Ratio Procalcitonin 4.12 H Free T4 Thyroxine (T4) TSH 3rd Generation Venous Blood Potassium 03/06/18 03/06/18 03/06/18 01:30 01:30 01:30 WBC RBC Hgb Hct MCV MCH MCHC RDW Plt Count MPV Gran % Lymph % (Auto) [place] % (Auto) Eos % (Auto) Baso % (Auto) Gran # Lymph # (Auto) [place] # (Auto) Eos # (Auto) Baso # (Auto) Neutrophils % (Manual) Lymphocytes % (Manual) Monocytes % (Manual) APTT 47.4 H pO2 32 VBG pH 7.18 L* VBG pCO2 47.0 VBG HCO3 17.5 L VBG Total CO2 18.9 L VBG O2 Sat (Calc) 62.2 VBG Base Excess -10.7 L VBG Potassium 3.3 L Sodium 133.0 133 Chloride 103.0 107 Glucose 182 H Lactate 2.6 H FiO2 21.0 Potassium 3.4 L Carbon Dioxide 18 L Anion Gap 12 BUN 42 H Creatinine 1.7 H Est GFR ( Amer) 35 Est GFR (Non-Af Amer) 29 POC Glucose (mg/dL) Random Glucose 173 H Calcium 7.9 L Phosphorus Magnesium Total Bilirubin 0.7 AST 542 H ALT 251 H Alkaline Phosphatase 67 Lactate Dehydrogenase Troponin I 68.90 H* D Total Protein 5.3 L Albumin 2.8 L Globulin 2.5 Albumin/Globulin Ratio 1.1 Procalcitonin Free T4 Thyroxine (T4) TSH 3rd Generation Venous Blood Potassium 3.3 L 03/06/18 03/06/18 03/06/18 01:30 02:36 04:14 WBC 16.8 H RBC 3.59 Hgb 11.3 L Hct 32.5 L MCV 90.5 D MCH 31.5 MCHC 34.8 RDW 13.7 Plt Count 231 MPV 9.3 Gran % 82.5 H Lymph % (Auto) 5.1 L [place] % (Auto) 12.3 H Eos % (Auto) 0.0 L Baso % (Auto) 0.1 Gran # 13.86 H Lymph # (Auto) 0.9 L [place] # (Auto) 2.1 H Eos # (Auto) 0.0 Baso # (Auto) 0.01 Neutrophils % (Manual) Lymphocytes % (Manual) Monocytes % (Manual) APTT pO2 VBG pH VBG pCO2 VBG HCO3 VBG Total CO2 VBG O2 Sat (Calc) VBG Base Excess VBG Potassium Sodium Chloride Glucose Lactate FiO2 Potassium Carbon Dioxide Anion Gap BUN Creatinine Est GFR ( Amer) Est GFR (Non-Af Amer) POC Glucose (mg/dL) 146 H 127 H Random Glucose Calcium Phosphorus Magnesium Total Bilirubin AST ALT Alkaline Phosphatase Lactate Dehydrogenase Troponin I Total Protein Albumin Globulin Albumin/Globulin Ratio Procalcitonin Free T4 Thyroxine (T4) TSH 3rd Generation Venous Blood Potassium 03/06/18 03/06/18 03/06/18 05:00 05:30 05:30 WBC 21.3 H D RBC 3.77 Hgb 11.6 L Hct 34.2 L MCV 90.7 MCH 30.8 MCHC 33.9 RDW 13.8 Plt Count 259 MPV 9.3 Gran % 86.6 H Lymph % (Auto) 4.4 L [place] % (Auto) 8.9 H Eos % (Auto) 0.0 L Baso % (Auto) 0.1 Gran # 18.46 H Lymph # (Auto) 0.9 L [place] # (Auto) 1.9 H Eos # (Auto) 0.0 Baso # (Auto) 0.02 Neutrophils % (Manual) Lymphocytes % (Manual) Monocytes % (Manual) APTT pO2 VBG pH VBG pCO2 VBG HCO3 VBG Total CO2 VBG O2 Sat (Calc) VBG Base Excess VBG Potassium Sodium 131 L Chloride 109 H Glucose Lactate FiO2 Potassium 3.5 L Carbon Dioxide 13 L Anion Gap 13 BUN 40 H Creatinine 1.6 H Est GFR ( Amer) 38 Est GFR (Non-Af Amer) 31 POC Glucose (mg/dL) Random Glucose 106 Calcium 7.9 L Phosphorus 3.4 Magnesium 1.7 Total Bilirubin 0.7 AST 519 H ALT 241 H Alkaline Phosphatase 66 Lactate Dehydrogenase Troponin I Total Protein 5.3 L Albumin 2.9 L Globulin 2.4 Albumin/Globulin Ratio 1.2 Procalcitonin Free T4 1.56 Thyroxine (T4) 6.3 TSH 3rd Generation 2.87 Venous Blood Potassium 03/06/18 03/06/18 03/06/18 05:30 06:28 07:28 WBC RBC Hgb Hct MCV MCH MCHC RDW Plt Count MPV Gran % Lymph % (Auto) [place] % (Auto) Eos % (Auto) Baso % (Auto) Gran # Lymph # (Auto) [place] # (Auto) Eos # (Auto) Baso # (Auto) Neutrophils % (Manual) Lymphocytes % (Manual) Monocytes % (Manual) APTT pO2 51 VBG pH 7.24 L VBG pCO2 36.0 L VBG HCO3 15.4 L VBG Total CO2 16.5 L VBG O2 Sat (Calc) 85.0 H VBG Base Excess -11.1 L VBG Potassium 3.2 L Sodium 134.0 Chloride 104.0 Glucose 112 H Lactate 2.5 H FiO2 21.0 Potassium Carbon Dioxide Anion Gap BUN Creatinine Est GFR ( Amer) Est GFR (Non-Af Amer) POC Glucose (mg/dL) 159 H 111 H Random Glucose Calcium Phosphorus Magnesium Total Bilirubin AST ALT Alkaline Phosphatase Lactate Dehydrogenase Troponin I Total Protein Albumin Globulin Albumin/Globulin Ratio Procalcitonin Free T4 Thyroxine (T4) TSH 3rd Generation Venous Blood Potassium 3.2 L 03/06/18 03/06/18 03/06/18 08:44 09:32 10:42 WBC RBC Hgb Hct MCV MCH MCHC RDW Plt Count MPV Gran % Lymph % (Auto) [place] % (Auto) Eos % (Auto) Baso % (Auto) Gran # Lymph # (Auto) [place] # (Auto) Eos # (Auto) Baso # (Auto) Neutrophils % (Manual) Lymphocytes % (Manual) Monocytes % (Manual) APTT pO2 VBG pH VBG pCO2 VBG HCO3 VBG Total CO2 VBG O2 Sat (Calc) VBG Base Excess VBG Potassium Sodium Chloride Glucose Lactate FiO2 Potassium Carbon Dioxide Anion Gap BUN Creatinine Est GFR ( Amer) Est GFR (Non-Af Amer) POC Glucose (mg/dL) 129 H 114 H 127 H Random Glucose Calcium Phosphorus Magnesium Total Bilirubin AST ALT Alkaline Phosphatase Lactate Dehydrogenase Troponin I Total Protein Albumin Globulin Albumin/Globulin Ratio Procalcitonin Free T4 Thyroxine (T4) TSH 3rd Generation Venous Blood Potassium 03/06/18 03/06/18 03/06/18 11:00 11:00 11:51 WBC 20.9 H RBC 3.23 L Hgb 10.2 L Hct 29.5 L MCV 91.3 MCH 31.6 MCHC 34.6 RDW 14.1 Plt Count 208 MPV 9.4 Gran % Lymph % (Auto) [place] % (Auto) Eos % (Auto) Baso % (Auto) 0.0 Gran # Lymph # (Auto) [place] # (Auto) Eos # (Auto) Baso # (Auto) 0.01 Neutrophils % (Manual) 90 H Lymphocytes % (Manual) 4 L Monocytes % (Manual) 6 APTT pO2 VBG pH VBG pCO2 VBG HCO3 VBG Total CO2 VBG O2 Sat (Calc) VBG Base Excess VBG Potassium Sodium 132 Chloride 119 H Glucose Lactate FiO2 Potassium 7.3 H* D Carbon Dioxide 12 L Anion Gap 8 L BUN 26 H Creatinine 0.9 Est GFR ( Amer) > 60 Est GFR (Non-Af Amer) > 60 POC Glucose (mg/dL) 115 H Random Glucose 97 Calcium 5.0 L* Phosphorus Magnesium Total Bilirubin 0.7 AST 286 H D ALT 170 H Alkaline Phosphatase 46 Lactate Dehydrogenase Troponin I 25.90 H* D Total Protein 3.4 L Albumin 1.8 L Globulin 1.6 Albumin/Globulin Ratio 1.1 Procalcitonin Free T4 Thyroxine (T4) TSH 3rd Generation Venous Blood Potassium 03/06/18 03/06/18 03/06/18 12:39 13:00 13:33 WBC RBC Hgb Hct MCV MCH MCHC RDW Plt Count MPV Gran % Lymph % (Auto) [place] % (Auto) Eos % (Auto) Baso % (Auto) Gran # Lymph # (Auto) [place] # (Auto) Eos # (Auto) Baso # (Auto) Neutrophils % (Manual) Lymphocytes % (Manual) Monocytes % (Manual) APTT pO2 VBG pH VBG pCO2 VBG HCO3 VBG Total CO2 VBG O2 Sat (Calc) VBG Base Excess VBG Potassium Sodium 131 L Chloride 109 H Glucose Lactate FiO2 Potassium 3.8 Carbon Dioxide 16 L Anion Gap 10 BUN 33 H Creatinine 1.2 Est GFR ( Amer) 52 Est GFR (Non-Af Amer) 43 POC Glucose (mg/dL) 118 H 136 H Random Glucose 158 H Calcium 7.8 L Phosphorus Magnesium Total Bilirubin AST ALT Alkaline Phosphatase Lactate Dehydrogenase Troponin I Total Protein Albumin Globulin Albumin/Globulin Ratio Procalcitonin Free T4 Thyroxine (T4) TSH 3rd Generation Venous Blood Potassium 03/06/18 03/06/18 03/06/18 14:00 15:20 15:50 WBC RBC Hgb Hct MCV MCH MCHC RDW Plt Count MPV Gran % Lymph % (Auto) [place] % (Auto) Eos % (Auto) Baso % (Auto) Gran # Lymph # (Auto) [place] # (Auto) Eos # (Auto) Baso # (Auto) Neutrophils % (Manual) Lymphocytes % (Manual) Monocytes % (Manual) APTT > 400.0 H* 83.2 H pO2 VBG pH VBG pCO2 VBG HCO3 VBG Total CO2 VBG O2 Sat (Calc) VBG Base Excess VBG Potassium Sodium Chloride Glucose Lactate FiO2 Potassium Carbon Dioxide Anion Gap BUN Creatinine Est GFR ( Amer) Est GFR (Non-Af Amer) POC Glucose (mg/dL) 152 H Random Glucose Calcium Phosphorus Magnesium Total Bilirubin AST ALT Alkaline Phosphatase Lactate Dehydrogenase Troponin I Total Protein Albumin Globulin Albumin/Globulin Ratio Procalcitonin Free T4 Thyroxine (T4) TSH 3rd Generation Venous Blood Potassium 03/06/18 03/06/18 03/06/18 19:25 19:25 21:52 WBC 18.2 H RBC 3.51 Hgb 11.0 L Hct 31.9 L MCV 90.9 MCH 31.3 MCHC 34.5 RDW 14.4 Plt Count 198 MPV 9.1 Gran % 89.5 H Lymph % (Auto) 6.9 L [place] % (Auto) 3.6 Eos % (Auto) 0.0 L Baso % (Auto) 0.0 Gran # 16.28 H Lymph # (Auto) 1.3 [place] # (Auto) 0.7 H Eos # (Auto) 0.0 Baso # (Auto) 0.00 Neutrophils % (Manual) Lymphocytes % (Manual) Monocytes % (Manual) APTT pO2 VBG pH VBG pCO2 VBG HCO3 VBG Total CO2 VBG O2 Sat (Calc) VBG Base Excess VBG Potassium Sodium 128 L Chloride 106 Glucose Lactate FiO2 Potassium 4.0 Carbon Dioxide 17 L Anion Gap 9 L BUN 31 H Creatinine 1.2 Est GFR ( Amer) 52 Est GFR (Non-Af Amer) 43 POC Glucose (mg/dL) 242 H Random Glucose 256 H Calcium 8.3 L Phosphorus Magnesium Total Bilirubin 0.6 AST 392 H D ALT 249 H Alkaline Phosphatase 75 Lactate Dehydrogenase 1392 H Troponin I Total Protein 5.4 L Albumin 2.8 L Globulin 2.6 Albumin/Globulin Ratio 1.1 Procalcitonin Free T4 Thyroxine (T4) TSH 3rd Generation Venous Blood Potassium Attending/Attestation - Attestation I have personally seen and examined this patient.: Yes I have fully participated in the care of the patient.: Yes I have reviewed all pertinent clinical information: Yes Notes (Text): This is an addendum to GI progress report dictated by the GI Fellow. The patient was seen and examined earlier. Medical records, lab studies, imagings were reviewed. Last 24 hours events reviewed. Agreed with the above treatment plan as outlined in GI Fellow 's notes with the addition of the following 03/06/18 22:58
--- NOTE | 2018-03-06 10:39 | CON ---
DATE OF CONSULTATION: 03/06/2018 REQUESTING PHYSICIAN: Sadia Atkinson MD REASON FOR CONSULTATION: DKA and acute myocardial infarction. HISTORY: This is an 82-year-old woman well known to me with a history of coronary artery disease, status post remote bypass surgery, who presents to the emergency room with altered mental status. She was found to be in diabetic ketoacidosis. She also had an abnormal electrocardiogram and an elevated troponin. She denied any chest pain on admission. She is seen currently in the ICU. She is somnolent, but arousable. She had received some Ativan overnight for some agitation. History is obtained via the chart as she is unable to answer additional questions at this time. PAST MEDICAL/SURGICAL HISTORY: She has undergone bypass surgery twice in the past in the as well as followup surgery in . She has a history of breast cancer for which she underwent a left mastectomy. She also has a longstanding history of hypertension, hyperlipidemia, hypothyroidism. FAMILY HISTORY: Unobtainable. SOCIAL HISTORY: She does not smoke or drink. She is retired. 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 She is and lives alone. She is relatively independent in her daily activities. MEDICATIONS: Her medications at home included Synthroid, lisinopril, simvastatin, aspirin and insulin. Her current medications include IV fluids, IV heparin, IV Levophed at 4 mcg/min, Synthroid and vancomycin. ALLERGIES: NONE. REVIEW OF SYSTEMS: Also unobtainable at this time. PHYSICAL EXAMINATION: GENERAL: She is an elderly woman who appears somewhat frail. VITAL SIGNS: Her blood pressure is 110/70 with pulse of 76 and sinus. Respirations are 16. She is afebrile. HEENT: Head normocephalic and atraumatic. NECK: No JVD. CHEST: Bilateral rhonchi heard. HEART: PMI in normal position. A systolic murmur is present at the left sternal border. ABDOMEN: Soft with normoactive bowel sounds. EXTREMITIES: No edema. SKIN: Warm and dry. PSYCHIATRIC: Arousable, but unable to fully assess due to recent sedation. NEUROLOGIC: Moving all four extremities. DIAGNOSTIC DATA: Initial white count 15.2 with hemoglobin and hematocrit of 10.7 and 34.3. Latest white count 21.3 with hemoglobin and hematocrit of 11.6 and 34.2. Platelet count is 276,000. PT/PTT were normal on admission. Initial venous blood gas showed a pH of 7.0 with pCO2 of 35. Recent blood gas showed pH 7.30 with pCO2 of 28, pO2 of 65. Admitting sodium is 120 with a glucose of 936, BUN and creatinine of 45 and 3.0 with potassium 5.6. Bicarbonate was 9. AST and ALT were 170 and 104. Initial troponin 2.04, repeat 8.8. and f/u this morning 68.9. Venous pH was 7.18. Potassium this morning is 3.4 with a BUN and creatinine of 42 and 1.7 and a bicarbonate of 18. Electrocardiogram reveals sinus rhythm with a right bundle-branch block and ST-T changes suggestive of anterior ischemia. Chest x-ray reveals post sternotomy changes with normal cardiac silhouette and clear lung damon. CT of the head reveals [id number] microvascular changes and cerebral atrophy consistent with age. IMPRESSION: 1. Acute non-ST segment elevation myocardial infarction with hemodynamic instability. 2. Severe diabetic ketoacidosis with persistent acidemia. 3. Longstanding diabetes mellitus. 4. Known coronary artery disease status post prior bypass surgery. 5. Rest of problems as noted. RECOMMENDATIONS: At this time, IV heparin will be maintained unless there is evidence of gastrointestinal bleeding. She reportedly had guaiac-positive stools in the emergency room. However, hemoglobin has remained stable. I would not add aspirin and Plavix at this point in time given her recent guaiac-positive stools. If her blood pressure improves, then Levophed can be withdrawn and low-dose beta-mayo therapy should be instituted. The patient is not a candidate for coronary intervention or angiography at this time given her unstable state metabolic derangements and acute renal insufficiency. The risk-benefit ratio favors continued conservative management at this time. Correct until her acidosis should proceed as quickly as possible. Serial enzymes will be obtained. The above was discussed with the nursing staff and her daughter, Saray, will be contacted via phone as well for review of the above. Do not intubate order is in place. Her overall prognosis is extremely guarded. Thank you for this consultation. We will be happy to follow and make any further recommendations as appropriate. Ari Hefferan, MD [facility] # [id number] [email or web address]
[2018-03-06 11:27] LABS: BASO # 0.01 K/mm3 (0.0-2.0); HEMOGLOBIN 10.2 g/dL (12.0-16.0); MEAN CELL VOLUME 91.3 fl (80.0-105.0); MEAN CORPUSCULAR HEMOGLOBIN 31.6 pg (25.0-35.0); MEAN CORPUSCULAR HGB CONC 34.6 g/dl (31.0-37.0); MEAN PLATELET VOLUME 9.4 fl (7.0-11.0); PLATELET COUNT 208 10^3/uL (120.0-450.0); RBC 3.23 10^6/uL (3.5-6.1); RED CELL DISTRIBUTION WIDTH 14.1 % (11.5-14.5); WHITE BLOOD COUNT 20.9 10^3/uL (4.5-11.0)
[2018-03-06 11:46] LABS: LYMPHOCYTE 4 % (22.0-35.0); MONOCYTE 6 % (1.0-6.0); NEUTROPHIL 90 % (50.0-70.0)
--- NOTE | 2018-03-06 11:55 | CP.PCM.PN ---
<Clyde Simons - Last Filed: 03/06/18 12:09> Subjective - Date & Time of Evaluation Date of Evaluation: 03/06/18 Time of Evaluation: 08:40 - Subjective Subjective: Medicine Progress Note for Hospitalist Service, Dr. Katarina Simons, DO PGY-1 Pt seen and examined at bedside this am. AAOx1, states she feels well, denies any acute complaints. Further ROS unobtainable due to pt's current mental status. No acute events reported overnight by staff. Objective - Vital Signs/Intake and Output Vital Signs (last 24 hours): Temp Pulse Resp BP Pulse Ox 98 F 74 20 72/24 L 95 03/05/18 12:40 03/06/18 06:00 03/05/18 22:50 03/05/18 22:42 03/05/18 22:50 Intake and Output: 03/06/18 03/06/18 06:59 18:59 Intake Total 50 Output Total 100 Balance -50 - Medications Medications: Current Medications Aspirin (Aspirin Chewable) 81 mg PO DAILY OZZY Last Admin: 03/06/18 10:13 Dose: 81 mg Vancomycin HCl (Vancomycin 1gm) 1 gm in 250 mls @ 167 mls/hr IVPB DAILY OZZY; Protocol Last Admin: 03/06/18 10:12 Dose: 167 mls/hr Insulin Human Regular 100 (units/ Sodium Chloride) 100 mls @ 5.44 mls/hr IV .[id number] PRN; Protocol PRN Reason: TITRATE PER PROTOCOL Last Admin: 03/05/18 20:05 Dose: 0.29 units/kg/hr, 16 mls/hr Heparin Sodium/Sodium Chloride (Heparin 41132 Units/250ml 1/2 Normal Saline) 25,000 units in 250 mls @ 6.532 mls/hr IV .Q24H OZZY; Protocol Last Titration: 03/06/18 06:33 Dose: 14 units/kg/hr, 7.62 mls/hr NOREPINEPHRINE BIT/0.9 % NACL (Levophed 4 Mg/ 250 Ml Ns Premixed) 4 mg in 250 mls @ 15 mls/hr IV .[id number] PRN; Protocol PRN Reason: TITRATE PER MD ORDER Dextrose/Sodium Chloride (Dextrose 5%/0.45% Ns 1000 Ml) 1,000 mls @ 100 mls/hr IV .Q10H OZZY Piperacillin Sod/Tazobactam Sod (Zosyn 2.25 Gm In 0.9% 100 Ml) 2.25 gm in 100 mls @ 100 mls/hr IVPB Q12 OZZY; Protocol Last Admin: 03/06/18 10:15 Dose: Not Given Levothyroxine Sodium (Synthroid) 100 mcg PO 0600 [facility] Last Admin: 03/06/18 08:20 Dose: 100 mcg Pantoprazole Sodium (Protonix Inj) 40 mg IVP Q12 [facility] Last Admin: 03/06/18 10:13 Dose: 40 mg - Labs Labs: 03/06/18 11:00 03/06/18 05:30 PT 10.6 SECONDS (9.4-12.5) 03/05/18 09:40 INR 0.92 03/05/18 09:40 APTT 47.4 Seconds (25.1-36.5) H 03/06/18 01:30 - Constitutional Appears: Non-toxic, No Acute Distress - Head Exam Head Exam: ATRAUMATIC, NORMOCEPHALIC - Eye Exam Eye Exam: EOMI, Normal appearance, PERRL - ENT Exam ENT Exam: Mucous Membranes Moist - Neck Exam Neck Exam: Full ROM. absent: Normal Inspection, Tenderness - Respiratory Exam Respiratory Exam: Clear to Ausculation Bilateral, NORMAL BREATHING PATTERN. absent: Rales, Rhonchi, Wheezes - Cardiovascular Exam Cardiovascular Exam: REGULAR RHYTHM, +S1, +S2. absent: Gallop, Rubs, Murmur - GI/Abdominal Exam GI & Abdominal Exam: Soft, Normal Bowel Sounds. absent: Distended, Guarding, Tenderness, Organomegaly - Extremities Exam Extremities Exam: Normal Capillary Refill, Normal Inspection, Pedal Edema (1+ b/l). absent: Tenderness - Neurological Exam Neurological Exam: Alert, Awake, CN II-XII Intact Additional comments: Oriented x1 - Skin Skin Exam: Dry, Intact, Warm Assessment and Plan - Assessment and Plan (Free Text) Assessment: 82 y old female, PMhx HTN, HLD, CAD s/p CABG x 2, DM2, hypothyroidism, and breast ca s/p lumpectomy of L breast in remission, who presented with DKA, NSTEMI, new T wave inversions and RBBB on EKG on admission. Currently admitted in the ICU. Plan: AMS 2/2 DKA vs infection, possible UTI - S/p insulin drip - Blood glucose checks Q1H - Repeat CMP Q6 - Will monitor gap closure - C/w IVF; currently NPO - Dr. Moon consulted (Endocrinology), recs appreciated NSTEMI - Repeat trops Q6 (2.07 => 8.88 => 32.6 => 68.9 since admission) - Pt denying chest pain at this time - Hx FOBT positive on admission, per recs of Dr. Garzon, continue with IV heparin, hold ASA and Plavix at this time. Not a candidate for coronary intervention or angiography at this time given unstable state, metabolic derangements, and acute renal insufficiency, as per Cardiology. -C/w Levophed at 2 mcg/min as per ICU, pt hypotensive, continue to monitor - Trend EKGs - Cardiology consulted, Dr. Garzon, recs appreciated UTI - UA + for LE, WBC and bacteria - Urine cx positive for gram neg nena, f/u final sensitivities - Blood cxs x 2 no growth for 24 hrs - C/w vanco and zosyn for broad-spectrum coverage - Afebrile, denies abdominal pain - WBC increased to 21.3 this am Transaminitis: - Likely 2/2 demand ischemia, will continue to monitor - AST 519, ALT 214, ALP 66 this am - Pt denying abd pain at this time -GI consulted (Dr. Holt), recs appreciated; recommended IV Protonix bid, active GI bleed unlikely in setting of positive FOBT on admission and improving Hgb Wound at superior sternotomy border - Small clean dry wound with surrounding erythema at superior border of sternotomy with sternotomy wire protruding - Nontender, no purulence no discharge - Wound culture 03/05, no growth after 24 hrs Microcytic Anemia - Positive Guaiac in ED - Stool occult blood ordered - Pt denies gross blood in stool - No active bleeding at this time - ASA and Plavix held as per Cardio recs; - Last colonoscopy age 72, pt reports no abnormalities - Will continue to reassess; most recent H/H today 10.2/29.5 DVT ppx: SCD GI ppx: Protonix bid Diet: NPO Currently DNR/DNI status Pt seen, examined with, and plan discussed with Dr. Katarina Shannon, attending physician. Clyde Simons DO PGY-1, [employer]it [employer] Intern Pager #[phone] <Katarina Shannon R - Last Filed: 03/08/18 07:41> Objective - Vital Signs/Intake and Output Vital Signs (last 24 hours): Temp Pulse Resp BP Pulse Ox 97.8 F 76 19 127/60 93 L 03/08/18 04:00 03/08/18 06:00 03/08/18 06:00 03/08/18 06:00 03/08/18 06:00 Intake and Output: 03/08/18 03/08/18 06:59 18:59 Intake Total 1778 Output Total 525 Balance 1253 - Medications Medications: Current Medications Aspirin (Aspirin Chewable) 81 mg PO DAILY OZZY Last Admin: 03/07/18 10:09 Dose: 81 mg Carvedilol (Coreg) 6.25 mg PO BID OZZY Last Admin: 03/07/18 17:04 Dose: 6.25 mg Heparin Sodium/Sodium Chloride (Heparin 86559 Units/250ml 1/2 Normal Saline) 25,000 units in 250 mls @ 6.532 mls/hr IV .Q24H OZZY; Protocol Last Admin: 03/07/18 09:47 Dose: 12 units/kg/hr, 6.532 mls/hr Piperacillin Sod/Tazobactam Sod (Zosyn 2.25 Gm In 0.9% 100 Ml) 2.25 gm in 100 mls @ 100 mls/hr IVPB Q12 OZZY; Protocol Last Admin: 03/07/18 21:50 Dose: 100 mls/hr Potassium Phosphate 15 mmole/ (Dextrose) 255 mls @ 42.5 mls/hr IVPB ONCE ONE Stop: 03/08/18 13:27 Insulin Detemir (Levemir) 20 unit SC HS OZZY Insulin Human Lispro (Humalog Low) 0 units SC ACHS OZZY; Protocol Last Admin: 03/07/18 22:00 Dose: Not Given Insulin Human Lispro (Humalog) 6 units SC AC OZZY Levothyroxine Sodium (Synthroid) 100 mcg PO 0600 OZZY Last Admin: 03/08/18 05:29 Dose: 100 mcg Pantoprazole Sodium (Protonix Ec Tab) 40 mg PO 0600 OZZY Last Admin: 03/08/18 05:28 Dose: 40 mg Polyethylene Glycol (Miralax) 17 gm PO DAILY OZZY Last Admin: 03/07/18 09:47 Dose: 17 gm - Labs Labs: 03/08/18 06:00 03/08/18 06:00 PT 10.6 SECONDS (9.4-12.5) 03/05/18 09:40 INR 0.92 03/05/18 09:40 APTT 59.1 Seconds (25.1-36.5) H 03/08/18 06:00 Attending/Attestation - Attestation I have personally seen and examined this patient.: Yes I have fully participated in the care of the patient.: Yes I have reviewed all pertinent clinical information, including history, physical exam and plan: Yes Notes (Text): Patient seen and examined by me with resident at 8:40 AM on 03/06/18. Case including HPI, physical exam, and assessment and plan discussed with resident. Agree with above with following additions/corrections. Patient is an 82-year-old female past medical history significant for hypertension, hyperlipidemia, type 2 diabetes, breast cancer status post lumpectomy, and coronary artery disease status post CABG that presented to the emergency room with confusion and altered mental status. Patient is confused. Not answering questions appropriately. Unable to obtain any review of systems from patient. Patient started on levophed for hypotension. Patient afebrile. Physical exam: General: Awake and alert lying in bed in no acute distress HEENT: Normocephalic, atraumatic. Extraocular muscles intact, pupils equal and reactive, no scleral icterus. Oropharynx is pink and moist. Neck is supple. Cardiovascular: Regular rhythm. Normal S1 and S2. Positive systolic murmur. No rubs or gallops appreciated Pulmonary: Normal respiratory effort. Auscultated anteriorly, patient not following commands and not taking in deep breaths. No rhonchi, rales, or wheezing appreciated. Gastrointestinal: Soft, nondistended. Nontender. Positive bowel sounds all 4 quadrants. No guarding. Musculoskeletal: Moves all extremities. No edema appreciated Central nervous system: Awake and alert with confusion. Dermatologic: Skin warm and dry. Assessment and plan:Patient is an 82-year-old female past medical history significant for hypertension, hyperlipidemia, type 2 diabetes, breast cancer status post lumpectomy, and coronary artery disease status post CABG that presented to the emergency room with confusion and altered mental status. 1. Toxic encephalopathy. Likely multifactorial secondary to UTI, DKA, NSTEMI. Treat underlying causes. Continue supportive care. Head CT per radiologist showed no evidence of acute intracranial hemorrhage or mass effect or midline shift, moderate atrophy and mild to moderate chronic microvascular white matter ischemic changes. 2. DKA. Resolved. Insulin drip stopped. Endocrinology following, recommendations appreciated. Continue insulin per endocrinology. Monitor accuchecks. HgbA1C is 9.7. Diabetic education when patient no longer altered. 3. NSTEMI with hemodynamic instability. Cardiology following, recommendations appreciated. Patient hypotension. Started on Levophed. Continue with heparin drip. Hold ASA and Plavix at this time. Continue to trend troponinins. Patient not a candidate for current coronary intervention or angiography. Pending 2-D echo results. Monitor closely in the ICU. 4. UTI. Urine culture positive for gram-negative rods. Pending final urine culture and blood culture read. Continue vancomycin and Zosyn. Patient afebrile. Leukocytosis up trending. 5. Transaminitis. Likely ischemic hepatitis secondary to hypotension. Downtrending. GI following, recommendations appreciated. Abdominal ultrasound pending. 6. Hypokalemia. Replace potassium. Follow up repeat labs in AM 7. Anemia. FOBT positive. However, H&H improved. GI following, recommendations appreciated. Continue Protonix. Continue to monitor CBC 8. Hypothyroidism. Continue Synthroid 9. Sternotomy wound. Continue local wound care. Wound culture with no growth. 10. GI/DVT prophylaxis. Protonix/Heparin drip 11. Advanced directive. Patient is a DNR/DNI.
[2018-03-06 11:57] LABS: ALB/GLOB RATIO 1.1 (1.1-1.8); ALBUMIN 1.8 g/dL (3.0-4.8); ALT/SGPT 170 U/L (7-56); AST/SGOT 286 U/L (14-36); BLOOD UREA NITROGEN 26 mg/dL (7-21); GFR NON-AFRICAN AMERICAN > 60
[2018-03-06] MEDS ORDERED: Calcium Chloride 1000 mg/10 ml Syringe IV ONE (13:29)
[2018-03-06 13:30] LABS: CALCIUM 7.8 mg/dL (8.4-10.5)
[2018-03-06] MEDS ORDERED: Insulin Detemir 100 units/ml Vial (Levemir) SC ONE (14:18)
[2018-03-06] MEDS ORDERED: Insulin Detemir 100 units/ml Vial (Levemir) SC STA (14:19)
--- NOTE | 2018-03-06 14:41 | CARD ---
APPROVED REPORT Date of service: 03/06/2018 EKG Measurement Heart [id number] <Conclusion> Normal sinus rhythm Incomplete right bundle branch block ST & T wave abnormality, consider anterior ischemia Abnormal ECG
--- NOTE | 2018-03-06 18:41 | PN ---
DATE: 03/06/2018 ENDOCRINOLOGY FOLLOWUP NOTE LOCATION: ICU 128, room 4. SUBJECTIVE: This is an 82-year-old female with recent altered mental status and generalized body weakness and evaluated to be in diabetic ketoacidosis and dehydration with supervening acute myocardial infarction of the [id number] type and is being followed closely for hemodynamic monitoring and metabolic management here in the ICU. She received vigorous IV hydration initially and intensive insulin therapy with an ongoing insulin drip infusion as given. Her glycemic levels are fluctuating but much improved as noted overnight and the glucose values have ranged from 115-127 mg/dL. LABORATORY DATA: Her latest chemistry showed a BUN of 26, sodium 132, potassium 7.3, chloride 119, CO2 of 12, glucose is 97 and creatinine is 0.9. Her troponin level is 25.90. ASSESSMENT: This is an 82-year-old female with uncontrolled and decompensated type 2 insulin-requiring diabetes, presenting here with severe diabetic ketoacidosis and dehydration with hyponatremia and hyperkalemia is now being followed closely for metabolic management. She also has an acute myocardial infarction of the non-ST segment elevation type and remains hemodynamically unstable on Levophed infusion as given. PLAN: Plan of management, we will continue the vigorous IV hydration as ordered and also continue the intensive insulin therapy with an insulin drip infusion as currently ongoing at this time. We will observe her clinical and metabolic response thereof as the patient is actually very critically ill at this time, being hemodynamically unstable with the concurrent acute myocardial infarction as mentioned. The hypocalcemia is related to underlying hypoalbuminemia as noted with a normal corrected calcium as noted. We will obtain serial chemistries and supplement accordingly as needed. We will continue the hourly glucose testing and monitoring as noted and given. We will follow and advise accordingly. Myrtle Moon MD
[2018-03-06 19:46] LABS: GRAN # 16.28 (1.4-6.5); GRAN % 89.5 % (50.0-68.0); LYMPH # 1.3 (1.2-3.4); LYMPH % 6.9 % (22.0-35.0); MEAN CELL VOLUME 90.9 fl (80.0-105.0); MEAN CORPUSCULAR HEMOGLOBIN 31.3 pg (25.0-35.0); MEAN CORPUSCULAR HGB CONC 34.5 g/dl (31.0-37.0); MEAN PLATELET VOLUME 9.1 fl (7.0-11.0); MONO # 0.7 (0.1-0.6); MONO % 3.6 % (1.0-6.0); RBC 3.51 10^6/uL (3.5-6.1); RED CELL DISTRIBUTION WIDTH 14.4 % (11.5-14.5); WHITE BLOOD COUNT 18.2 10^3/uL (4.5-11.0)
[2018-03-06 20:28] LABS: ALB/GLOB RATIO 1.1 (1.1-1.8); ALBUMIN 2.8 g/dL (3.0-4.8); CALCIUM 8.3 mg/dL (8.4-10.5)
[2018-03-07] MEDS: Sodium Chloride 0.9% 1,000 ML IV SCH (03:50)
[2018-03-07] MEDS: Levothyroxine 100 MCG TAB PO SCH (05:57)
[2018-03-07 06:17] LABS: EOS % 0.1 % (1.5-5.0); GRAN # 12.03 (1.4-6.5); GRAN % 85.7 % (50.0-68.0); HEMOGLOBIN 10.6 g/dL (12.0-16.0); LYMPH # 0.9 (1.2-3.4); LYMPH % 6.7 % (22.0-35.0); MEAN CELL VOLUME 90.7 fl (80.0-105.0); MEAN CORPUSCULAR HEMOGLOBIN 30.7 pg (25.0-35.0); MEAN CORPUSCULAR HGB CONC 33.9 g/dl (31.0-37.0); MEAN PLATELET VOLUME 9.2 fl (7.0-11.0); MONO # 1.1 (0.1-0.6); MONO % 7.5 % (1.0-6.0); RBC 3.45 10^6/uL (3.5-6.1); RED CELL DISTRIBUTION WIDTH 14.5 % (11.5-14.5)
[2018-03-07 06:36] LABS: BLOOD UREA NITROGEN 25 mg/dL (7-21); CALCIUM 8.3 mg/dL (8.4-10.5); GFR NON-AFRICAN AMERICAN > 60
[2018-03-07] MEDS ORDERED: Insulin Detemir 100 units/ml Vial (Levemir) SC ONE (08:00)
--- NOTE | 2018-03-07 08:24 | CARD ---
APPROVED REPORT Date of service: 03/06/2018 EXAM: Two-dimensional and M-mode echocardiogram with Doppler and color Doppler. INDICATION ME 2D DIMENSIONS IVSd0.8 (0.7-1.1cm)LVDd5.1 (3.9-5.9cm) PWd1.1 (0.7-1.1cm)LVDs4.0 (2.5-4.0cm) FS (%) 21.4 %LVEF (%)43.1 (>50%) M-Mode DIMENSIONS Left Atrium (MM)4.30 (2.5-4.0cm)Aortic Root2.80 (2.2-3.7cm) Aortic Cusp Exc.1.60 (1.5-2.0cm) Aortic Valve AoV Peak Nwuxucmr202.0cm/sAoV VTI42.7cmAO Peak GR.20mmHg AO Mean GR.10mmHg Mitral Valve MV E Fjupcmkv431.0cm/sMV E Peak Gr.90mmHgMV A Vscmmijy60.3cm/s E/A ratio1.6 TDI Lateral E' Peak V9.26cm/sMedial E' Peak V6.53cm/sE/Lateral E'11.6 E/Medial E'16.4 Tricuspid Valve TR Peak Obdnxdmy572ek/sRAP WNYRDQNW54myBfQC Peak Gr.25mmHg [id number] LEFT VENTRICLE The left ventricle is normal size. There is normal left ventricular wall thickness. The systolic function is moderately impaired. There is severe hypokinesis of the basal inferoseptal, inferolateral and anterolateral wall segments. RIGHT VENTRICLE The right ventricle is normal size. The right ventricular systolic function is normal. ATRIA The left atrium is mildly dilated. The right atrium size is normal. The interatrial septum is intact with no evidence for an atrial septal defect. AORTIC VALVE The aortic valve is mildly sclerotic. No aortic regurgitation is present. There is no aortic valvular stenosis. MITRAL VALVE The mitral valve is normal in structure. Mitral regurgitation is moderate. TRICUSPID VALVE The tricuspid valve is normal in structure. There is moderate tricuspid regurgitation. PULMONIC VALVE The pulmonary valve is normal in structure. GREAT VESSELS The aortic root is normal in size. The IVC is normal in size and collapses >50% with inspiration. PERICARDIAL EFFUSION There is no pleural effusion. There is no pericardial effusion. <Conclusion> Dilated LA. Normal LV size. Moderately reduced LV systolic function with segmental wall hypokinesis as noted. Moderate MR and TR.
--- NOTE | 2018-03-07 09:36 | CP.PCM.PN ---
<Melo Sahni - Last Filed: 03/07/18 10:20> Subjective - Date & Time of Evaluation Date of Evaluation: 03/07/18 Time of Evaluation: 09:20 - Subjective Subjective: PGY-4 GI Fellow Prog Note Pt lying in bed when seen this AM. States she feels somewhat better than yesterday in general, but can't identify and specific complaint. Denied BM, reports last one was day before yesterday and was brown. Stated that date was November 2011, but was able to state location of [facility]. 5 point ROS negative other than stated above Objective - Vital Signs/Intake and Output Vital Signs (last 24 hours): Temp Pulse Resp BP Pulse Ox 98.1 F 75 18 139/66 95 03/07/18 04:00 03/07/18 06:00 03/07/18 06:00 03/07/18 06:00 03/07/18 06:00 Intake and Output: 03/07/18 03/07/18 06:59 18:59 Intake Total 1590 Output Total 700 Balance 890 - Medications Medications: Current Medications Aspirin (Aspirin Chewable) 81 mg PO DAILY [facility] Last Admin: 03/06/18 10:13 Dose: 81 mg Vancomycin HCl (Vancomycin 1gm) 1 gm in 250 mls @ 167 mls/hr IVPB DAILY [facility]; Protocol Last Admin: 03/06/18 10:12 Dose: 167 mls/hr Heparin Sodium/Sodium Chloride (Heparin 95159 Units/250ml 1/2 Normal Saline) 25,000 units in 250 mls @ 6.532 mls/hr IV .Q24H [facility]; Protocol Last Titration: 03/06/18 17:00 Dose: 12 units/kg/hr, 6.532 mls/hr NOREPINEPHRINE BIT/0.9 % NACL (Levophed 4 Mg/ 250 Ml Ns Premixed) 4 mg in 250 mls @ 15 mls/hr IV .H48V12C PRN; Protocol PRN Reason: TITRATE PER MD ORDER Piperacillin Sod/Tazobactam Sod (Zosyn 2.25 Gm In 0.9% 100 Ml) 2.25 gm in 100 m ls @ 100 mls/hr IVPB Q12 [facility]; Protocol Last Admin: 03/06/18 21:38 Dose: 100 mls/hr Sodium Chloride (Sodium Chloride 0.9%) 1,000 mls @ 100 mls/hr IV .Q10H [facility] Last Admin: 03/07/18 03:50 Dose: 100 mls/hr Insulin Detemir (Levemir) 15 unit SC BID [facility] Insulin Human Regular (Humulin R Low) 0 units SC ACHS [facility]; Protocol Levothyroxine Sodium (Synthroid) 100 mcg PO 0600 [facility] Last Admin: 03/07/18 05:57 Dose: 100 mcg Pantoprazole Sodium (Protonix Inj) 40 mg IVP Q12 [facility] Last Admin: 03/06/18 21:37 Dose: 40 mg Polyethylene Glycol (Miralax) 17 gm PO DAILY [facility] - Labs Labs: 03/07/18 06:00 03/07/18 06:00 PT 10.6 SECONDS (9.4-12.5) 03/05/18 09:40 INR 0.92 03/05/18 09:40 APTT 79.3 Seconds (25.1-36.5) H 03/07/18 06:00 - Constitutional Appears: No Acute Distress, Chronically Ill - Head Exam Head Exam: ATRAUMATIC, NORMAL INSPECTION - Eye Exam Eye Exam: EOMI. absent: Scleral icterus - ENT Exam ENT Exam: Mucous Membranes Dry. absent: Mucous Membranes Moist - GI/Abdominal Exam GI & Abdominal Exam: Distended (mildy), Soft, Normal Bowel Sounds. absent: Bruit, Firm, Guarding, Rigid, Tenderness, Mass, Organomegaly, Pulsatile Mass, Rebound Assessment and Plan - Assessment and Plan (Free Text) Assessment: 82 yo WF with CAD s/p CABG, DM, HTN, Breast CA s/p lumpectomy in remission presenting with AMS, found to be in DKA and ACS. GI consulted for Hypotension and FOBT positive. # Hypotension, FOBT+: Improved. Suspect the Hypotension related to DKA with volume depletion and ACS/NSTEMI, possible Sepsis/UTI picture. Hgb is improved this AM to 11.6 from 10.7 on admission even since starting anticoagulation; therefore, given Hgb nearly back to baseline, active GI bleed unlikely. Mendoza toscano had CSPY ~ 10 years ago that was normal per notes. # Transamnitis: Suspect related to ischemic hepatitis in the setting of hypotension/volume depletion due to above. LDH elevation suggestive of ischemia. # DKA, ACS/NSTEMI: Management per primary and consultants. On heparin gtt, ASA+Clopidogrel held per Cardiology broad spectrum Abx. Plan: - IV PPI BID to QD today - Monitor CBC, CMP - F/u Abd US, Viral Hep - No plans for Endoscopic eval at this point as no signs of active bleeding and needs DKA/ACS resolved prior Pt discussed with Dr. Holt; please see attestation for further recs/changes Melo Sahni, PGY-4 <Shelly Holt V - Last Filed: 03/07/18 19:19> Objective - Vital Signs/Intake and Output Vital Signs (last 24 hours): Temp Pulse Resp BP Pulse Ox 98.4 F 76 20 105/45 L 97 03/07/18 16:00 03/07/18 18:00 03/07/18 16:00 03/07/18 17:04 03/07/18 16:00 Intake and Output: 03/07/1818 18:59 06:59 Intake Total 2578 Output Total 775 Balance 1803 - Medications Medications: Current Medications Aspirin (Aspirin Chewable) 81 mg PO DAILY [facility] Last Admin: 03/07/18 10:09 Dose: 81 mg Carvedilol (Coreg) 6.25 mg PO BID [facility] Last Admin: 03/07/18 17:04 Dose: 6.25 mg Heparin Sodium/Sodium Chloride (Heparin 17509 Units/250ml 1/2 Normal Saline) 25,000 units in 250 mls @ 6.532 mls/hr IV .Q24H [facility]; Protocol Last Admin: 03/07/18 09:47 Dose: 12 units/kg/hr, 6.532 mls/hr Piperacillin Sod/Tazobactam Sod (Zosyn 2.25 Gm In 0.9% 100 Ml) 2.25 gm in 100 mls @ 100 mls/hr IVPB Q12 [facility]; Protocol Last Admin: 03/07/18 09:47 Dose: 100 mls/hr Sodium Chloride (Sodium Chloride 0.9%) 1,000 mls @ 100 mls/hr IV .Q10H [facility] Last Admin: 03/07/18 03:50 Dose: 100 mls/hr Insulin Detemir (Levemir) 15 unit SC BID [facility] Last Admin: 03/07/18 17:03 Dose: 15 units Insulin Human Regular (Humulin R Low) 0 units SC ACHS [facility]; Protocol Last Admin: 03/07/18 16:58 Dose: 4 units Levothyroxine Sodium (Synthroid) 100 mcg PO 0600 [facility] Last Admin: 03/07/18 05:57 Dose: 100 mcg Pantoprazole Sodium (Protonix Ec Tab) 40 mg PO 0600 [facility] Polyethylene Glycol (Miralax) 17 gm PO DAILY [facility] Last Admin: 03/07/18 09:47 Dose: 17 gm - Labs Labs: 03/07/18 06:00 03/07/18 06:00 PT 10.6 SECONDS (9.4-12.5) 03/05/18 09:40 INR 0.92 03/05/18 09:40 APTT 79.3 Seconds (25.1-36.5) H 03/07/18 06:00 Attending/Attestation - Attestation I have personally seen and examined this patient.: Yes I have fully participated in the care of the patient.: Yes I have reviewed all pertinent clinical information, including history, physical exam and plan: Yes Notes (Text): This is an addendum to GI followup report dictated by the GI Fellow. The patient was seen and evaluated earlier. Medical records, lab studies, imagings were reviewed. Last 24 hours events reviewed. Agreed with the above treatment plan as outlined in GI Fellow's notes with the addition of the following Patient was comfortable. Followup CBC and LFT. Advance diet. 03/07/18 19:18
[2018-03-07] MEDS: Vancomycin 1gm in NS 250ml 1 GM/250 ML BAG IVPB SCH (09:46)
[2018-03-07] MEDS: Heparin25000 units/250ml 1/2NS 25,000 UNITS/250 ML BAG IV SCH (09:47)
[2018-03-07] MEDS: Piperacillin/Tazobact 2.25gm 2.25 GM/100 ML BAG IVPB SCH ×2 (09:47→21:50)
[2018-03-07] MEDS: POLYETHYLENE GLYCOL 3350 17 GM/Dose PACKET PO SCH (09:47)
--- NOTE | 2018-03-07 10:53 | PN ---
DATE: 03/07/2018 SUBJECTIVE: The patient is seen lying in bed in the ICU. She is more awake and alert today and answered most questions appropriately. She states that she does not wish to live any longer. She denies any chest pain. CURRENT MEDICATIONS: Include IV heparin, insulin, Protonix, Synthroid, vancomycin and Zosyn. PHYSICAL EXAMINATION: GENERAL: She is an elderly woman who appears comfortable at rest. VITAL SIGNS: Blood pressure is 140/66 with a pulse of 76, respirations 16. She is afebrile. HEENT: No JVD. CHEST: Few scattered rhonchi heard. HEART: PMI displaced laterally with a systolic murmur at left sternal border. ABDOMEN: Soft, nontender with normoactive bowel sounds. EXTREMITIES: No edema. DIAGNOSTIC DATA: Sodium is 130, potassium 4.4, BUN and creatinine 25 and 0.9, glucose 218. White count 14, hemoglobin and hematocrit 10.6 and 31.3 with platelet count 187,000. PTT is 79. Last troponin was 25.9. Morning electrocardiogram is pending. Echocardiogram is reviewed revealing evidence of dilated left atrium with normal LV size and moderately reduced LV systolic function with evidence of inferolateral, inferoseptal and anterolateral hypokinesis. Moderate mitral and tricuspid regurgitation present as well. IMPRESSION: 1. Recent non-ST segment elevation myocardial infarction, clinically improved with no current angina, no evidence of complications thus far. 2. Resolving diabetic ketoacidosis. 3. Apparent urinary tract infection. 4. Coronary artery disease, status post remote bypass surgery. 5. Probable depression. She has been fairly despondent and upset with her following his from a massive stroke a year or so ago. RECOMMENDATIONS: Her current medications will continue for now. Beta-mayo therapy will be added. Aspirin will be resumed. Plavix will be withheld pending course. She did have evidence of guaiac-positive stools in the emergency room upon admission. However, hemoglobin has been stable on IV heparin. Further discussion with the patient will be had regarding aggressiveness of workup either cardiac catheterization or a pre-discharge stress test would be reasonable. Transfer to telemetry appears reasonable today. The followup enzymes will be monitored. We will follow as needed. Ari Garzon MD [facility] # [id number]
--- NOTE | 2018-03-07 10:58 | CP.PCM.PN ---
Subjective - Date & Time of Evaluation Date of Evaluation: 03/07/18 Time of Evaluation: 08:00 - Subjective Subjective: Medicine Progress Note for Hospitalist Service, Dr. Demetrio Simons, DO PGY-1 Pt seen and examined at bedside. AAOx3 currently, able to state her name and where she is currently. Denies any acute complaints, except for that her mouth is dry. Denies chest pain or shortness of breath. No acute events reported overn ight by staff. Denies headache, fever, chills, n/v/d/c, abd pain, urinary complaints, or other symptoms. Objective - Vital Signs/Intake and Output Vital Signs (last 24 hours): Temp Pulse Resp BP Pulse Ox 98.1 F 77 18 146/69 95 03/07/18 04:00 03/07/18 09:57 03/07/18 06:00 03/07/18 09:57 03/07/18 06:00 Intake and Output: 03/07/18 03/07/18 06:59 18:59 Intake Total 1642 Output Total 700 Balance 942 - Medications Medications: Current Medications Aspirin (Aspirin Chewable) 81 mg PO DAILY [facility] Last Admin: 03/07/18 10:09 Dose: 81 mg Carvedilol (Coreg) 6.25 mg PO BID [facility] Last Admin: 03/07/18 09:57 Dose: 6.25 mg Heparin Sodium/Sodium Chloride (Heparin 50391 Units/250ml 1/2 Normal Saline) 25,000 units in 250 mls @ 6.532 mls/hr IV .Q24H [facility]; Protocol Last Admin: 03/07/18 09:47 Dose: 12 units/kg/hr, 6.532 mls/hr Piperacillin Sod/Tazobactam Sod (Zosyn 2.25 Gm In 0.9% 100 Ml) 2.25 gm in 100 mls @ 100 mls/hr IVPB Q12 [facility]; Protocol Last Admin: 03/07/18 09:47 Dose: 100 mls/hr Sodium Chloride (Sodium Chloride 0.9%) 1,000 mls @ 100 mls/hr IV .Q10H [facility] Last Admin: 03/07/18 03:50 Dose: 100 mls/hr Insulin Detemir (Levemir) 15 unit SC BID [facility] Insulin Human Regular (Humulin R Low) 0 units SC ACHS [facility]; Protocol Levothyroxine Sodium (Synthroid) 100 mcg PO 0600 [facility] Last Admin: 03/07/18 05:57 Dose: 100 mcg Pantoprazole Sodium (Protonix Ec Tab) 40 mg PO 0600 [facility] Polyethylene Glycol (Miralax) 17 gm PO DAILY [facility] Last Admin: 03/07/18 09:47 Dose: 17 gm - Labs Labs: 03/07/18 06:00 03/07/18 06:00 PT 10.6 SECONDS (9.4-12.5) 03/05/18 09:40 INR 0.92 03/05/18 09:40 APTT 79.3 Seconds (25.1-36.5) H 03/07/18 06:00 - Constitutional Appears: Non-toxic, No Acute Distress - Head Exam Head Exam: ATRAUMATIC, NORMOCEPHALIC - Eye Exam Eye Exam: EOMI, Normal appearance, PERRL - ENT Exam ENT Exam: Mucous Membranes Moist - Neck Exam Neck Exam: Full ROM, Normal Inspection. absent: Tenderness - Respiratory Exam Respiratory Exam: Clear to Ausculation Bilateral, NORMAL BREATHING PATTERN. absent: Rales, Rhonchi, Wheezes - Cardiovascular Exam Cardiovascular Exam: REGULAR RHYTHM, +S1, +S2. absent: Gallop, Rubs, Murmur - GI/Abdominal Exam GI & Abdominal Exam: Soft, Normal Bowel Sounds. absent: Distended, Guarding, Tenderness, Organomegaly - Extremities Exam Extremities Exam: Full ROM, Normal Capillary Refill, Normal Inspection. absent: Calf Tenderness, Pedal Edema, Tenderness - Neurological Exam Neurological Exam: Alert, Awake, CN II-XII Intact, Oriented x3 - Psychiatric Exam Psychiatric exam: Normal Affect, Normal Mood - Skin Skin Exam: Dry, Intact, Normal Color, Warm Assessment and Plan - Assessment and Plan (Free Text) Assessment: 82 y old female, PMhx HTN, HLD, CAD s/p CABG x 2, DM2, hypothyroidism, and breast ca s/p lumpectomy of L breast in remission, who presented with DKA, NSTEMI, new T wave inversions and RBBB on EKG on admission. To be downgraded from ICU today to tele. Plan: AMS 2/2 DKA vs infection, possible UTI - improving - Insulin drip d/c'd, anion gap closed - Fingersticks achs - Levemir 15 U bid started, ISS low - C/w with liquid diet, advance as tolerated - Dr. Moon consulted (Endocrinology), recs appreciated NSTEMI - Troponin trend (2.07 => 8.88 => 32.6 => 68.9 => 25.9 => 12.8 since admission) - Pt denying chest pain at this time - Hx FOBT positive on admission, per recs of Dr. Garzon, continue with IV heparin, hold ASA and Plavix at this time. Not a candidate for coronary intervention or angiography at this time as per Cardiology. -Off pressors, continue to monitor bp - Trend EKGs - Cardiology consulted, Dr. Garzon, recs appreciated UTI - UA + for LE, WBC and bacteria - Urine cx positive for E. coli, resistant to ampicillin, otherwise schmidt- sensitive - Blood cxs x 2 no growth for 48 hrs - C/w zosyn 2.25 g q 12 h - Afebrile, denies abdominal pain - WBC 14 this am, trending down Transaminitis - Likely 2/2 demand ischemia, will continue to monitor - AST 392, ALT 249, ALP 75 this am, trending down - Pt denying abd pain at this time -GI consulted (Dr. Holt), recs appreciated; recommended IV Protonix bid, active GI bleed unlikely in setting of positive FOBT on admission and improving Hgb Wound at superior sternotomy border - Small clean dry wound with surrounding erythema at superior border of sternotomy with sternotomy wire protruding - Nontender, no purulence no discharge - Wound culture 03/05, no growth after 24 hrs Microcytic Anemia - Positive Guaiac in ED - Stool occult blood ordered - Pt denies gross blood in stool - No active bleeding at this time - ASA and Plavix held as per Cardio recs; currently on Heparin drip - Last colonoscopy age 72, pt reports no abnormalities - Will continue to reassess; most recent H/H today 10.6/31.3 DVT ppx: SCD GI ppx: Protonix bid Diet: liquid Currently DNR/DNI status Pt seen, examined with, and plan discussed with Dr. Atkinson, attending physician. Clyde Simons DO PGY-1, [employer] Pager #[phone]
[2018-03-07] MEDS: Insulin Reg-LOW-Coverage SC SCH ×2 (12:32→16:58)
--- NOTE | 2018-03-07 12:38 | CP.PCM.PN ---
Subjective - Date & Time of Evaluation Date of Evaluation: 03/07/18 Time of Evaluation: 07:40 - Subjective Subjective: Patient seen and examined, no major complaints. Tolerating PO diet. Objective - Vital Signs/Intake and Output Vital Signs (last 24 hours): Temp Pulse Resp BP Pulse Ox 98.1 F 72 18 146/69 95 03/07/18 04:00 03/07/18 10:00 03/07/18 06:00 03/07/18 09:57 03/07/18 06:00 Intake and Output: 03/07/18 03/07/18 06:59 18:59 Intake Total 1642 Output Total 700 Balance 942 - Medications Medications: Current Medications Aspirin (Aspirin Chewable) 81 mg PO DAILY [facility] Last Admin: 03/07/18 10:09 Dose: 81 mg Carvedilol (Coreg) 6.25 mg PO BID [facility] Last Admin: 03/07/18 09:57 Dose: 6.25 mg Heparin Sodium/Sodium Chloride (Heparin 20706 Units/250ml 1/2 Normal Saline) 25,000 units in 250 mls @ 6.532 mls/hr IV .Q24H [facility]; Protocol Last Admin: 03/07/18 09:47 Dose: 12 units/kg/hr, 6.532 mls/hr Piperacillin Sod/Tazobactam Sod (Zosyn 2.25 Gm In 0.9% 100 Ml) 2.25 gm in 100 mls @ 100 mls/hr IVPB Q12 [facility]; Protocol Last Admin: 03/07/18 09:47 Dose: 100 mls/hr Sodium Chloride (Sodium Chloride 0.9%) 1,000 mls @ 100 mls/hr IV .Q10H [facility] Last Admin: 03/07/18 03:50 Dose: 100 mls/hr Insulin Detemir (Levemir) 15 unit SC BID [facility] Insulin Human Regular (Humulin R Low) 0 units SC ACHS [facility]; Protocol Levothyroxine Sodium (Synthroid) 100 mcg PO 0600 [facility] Last Admin: 03/07/18 05:57 Dose: 100 mcg Pantoprazole Sodium (Protonix Ec Tab) 40 mg PO 0600 [facility] Polyethylene Glycol (Miralax) 17 gm PO DAILY [facility] Last Admin: 03/07/18 09:47 Dose: 17 gm - Labs Labs: 03/07/18 06:00 03/07/18 06:00 PT 10.6 SECONDS (9.4-12.5) 03/05/18 09:40 INR 0.92 03/05/18 09:40 APTT 79.3 Seconds (25.1-36.5) H 03/07/18 06:00 - Constitutional Appears: Non-toxic, No Acute Distress - Head Exam Head Exam: NORMAL INSPECTION - Eye Exam Eye Exam: Normal appearance - ENT Exam ENT Exam: Mucous Membranes Dry - Respiratory Exam Respiratory Exam: Clear to Ausculation Bilateral, NORMAL BREATHING PATTERN - Cardiovascular Exam Cardiovascular Exam: REGULAR RHYTHM, +S1, +S2 - GI/Abdominal Exam GI & Abdominal Exam: Soft, Normal Bowel Sounds - Extremities Exam Extremities Exam: Pedal Edema - Neurological Exam Neurological Exam: Alert, Awake Assessment and Plan - Assessment and Plan (Free Text) Assessment: Patient is 82 year old female with PMHx of HTN, HLD, CAD, DM2, breast ca s/p surgical removal of mass of L breast, hypothyroidism, diverticulosis admitted with dehydration, DKA, lactic acidosis, UTI, and NSTEMI Currently afebrile, BP stable, AAOx2, in NAD Labs, imaging, chart reviewed AG has closed, on Levemir, sliding scale, tolerating diabetic diet Pt on IVF Troponin downtrending, on Heparin drip, cardiology following, Dr Rothman UA +E coli, on Zosyn DKA, resolved Dehydration Hypokalemia +stool Occult Anemia NSTEMI UTI Recommend: - supp o2 as needed, duonebs PRN - switch Abx to Cipro IV - IVF, switch to NS - Check HgbA1C, TSH, Lipid Panel, follow up Endo - Monitor HH - Monitor PTT on Heparin drip - ECHO - follow up cardiology - ASA - PPI IV BID - GI ppx - DVT ppx - transfer to telemetry
--- NOTE | 2018-03-07 13:26 | PN ---
DATE: 03/07/2018 ENDO FOLLOWUP NOTE LOCATION: ICU 128, room 4. SUBJECTIVE: This is an 82-year-old female presenting here with marked hyperglycemic accelerations and supervening diabetic ketoacidosis and dehydration and is now improving clinically and metabolically as noted thereof. She also sustained an acute myocardial infarction of non-ST elevation type and is being followed closely for hemodynamic monitoring in the ICU as noted. Her chemistries today showed a BUN of 25, sodium 130, potassium 4.4, chloride 108, CO2 of 16, glucose 218 and creatinine 0.9. Her glucose levels have ranged from 152 to 242 and 244 mg/dL. Her LDH is 1392 with troponin of 12.80. ASSESSMENT: This is an 82-year-old female with acute myocardial infarction of non-ST elevation type on the background of severe and underlying cardiac vasculopathy with two prior coronary artery bypass graft surgeries as noted. She also has presented here with uncontrolled type 2 insulin-requiring diabetes with marked hyperglycemic accelerations and supervening diabetic ketoacidosis and is improving clinically and metabolically as noted thereof. PLAN OF MANAGEMENT: We will concur with the present discontinuation of the insulin drip infusion and has been switched over to a sliding scale coverage with regular insulin, given at the low dose algorithm as noted. As her oral intake remains variable, we will observe the glycemic fluctuations overnight and determine the need to start her on a combination of either a basal insulin at night with oral hypoglycemic therapy during the day and/or a basal and bolus insulin drug combination as indicated. She is currently on Levemir ordered at 15 units subcutaneously b.i.d. as ordered. We will titrate accordingly to optimize metabolic control. We will obtain serial chemistries and supplement accordingly as needed. We will follow the patient. Myrtle Moon MD
[2018-03-07] MEDS ORDERED: Insulin Detemir 100 units/ml Vial (Levemir) SC SCH ×2 (18:00→22:00)
[2018-03-07] MEDS: Insulin Lispro (humaLOG) LOW Coverage SC SCH (22:00)
[2018-03-08] MEDS: Pantoprazole 40 mg EC Tab PO SCH (05:28)
[2018-03-08] MEDS: Levothyroxine 100 MCG TAB PO SCH (05:29)
[2018-03-08] MEDS: Sodium Chloride 0.9% 1,000 ML IV SCH (05:29)
[2018-03-08 07:05] LABS: BASO # 0.01 K/mm3 (0.0-2.0); BASO % 0.1 % (0.0-3.0); EOS # 0.1 (0.0-0.7); EOS % 1.2 % (1.5-5.0); GRAN # 7.6 (1.4-6.5); GRAN % 77.1 % (50.0-68.0); HEMOGLOBIN 10.1 g/dL (12.0-16.0); LYMPH # 1.1 (1.2-3.4); LYMPH % 11.5 % (22.0-35.0); MEAN CELL VOLUME 90.8 fl (80.0-105.0); MEAN CORPUSCULAR HGB CONC 34.1 g/dl (31.0-37.0); MEAN PLATELET VOLUME 9.5 fl (7.0-11.0); MONO % 10.1 % (1.0-6.0); RBC 3.26 10^6/uL (3.5-6.1); RED CELL DISTRIBUTION WIDTH 14.8 % (11.5-14.5); WHITE BLOOD COUNT 9.9 10^3/uL (4.5-11.0)
[2018-03-08 07:17] LABS: ALBUMIN 2.6 g/dL (3.0-4.8); ALT/SGPT 201 U/L (7-56); AST/SGOT 172 U/L (14-36); BLOOD UREA NITROGEN 15 mg/dL (7-21); CALCIUM 8.3 mg/dL (8.4-10.5); GFR NON-AFRICAN AMERICAN > 60
[2018-03-08] MEDS ORDERED: Potassium Phosphate 15 MMOLE in Dextrose 5% In Water 250 ML IVPB ONE (07:28)
[2018-03-08] MEDS: Insulin Lispro 1 UNITS/0.01 ML SC SCH ×3 (07:30→17:58)
[2018-03-08] MEDS ORDERED: Insulin Detemir 100 units/ml Vial (Levemir) SC SCH ×2 (07:35→22:00)
[2018-03-08] MEDS ORDERED: Dextrose 50% SYRINGE Inj (50 ml) IVP PRN (07:43)
--- NOTE | 2018-03-08 07:49 | CP.PCM.PN ---
Subjective - Date & Time of Evaluation Date of Evaluation: 03/08/18 Time of Evaluation: 07:00 - Subjective Subjective: Stable in CCU. No CP or SOB. She feels better. V/S noted. RSR PE: Lungs: clear Cor.: S1S2 Abd: soft Ext.: no edema Neuro.: alert I/O= [id number] Labs noted. Urine C+S: E coli BC X2 at 48hrs: NG Echo noted: Mod LVD with RWMA Objective - Vital Signs/Intake and Output Vital Signs (last 24 hours): Temp Pulse Resp BP Pulse Ox 97.8 F 76 19 127/60 93 L 03/08/18 04:00 03/08/18 06:00 03/08/18 06:00 03/08/18 06:00 03/08/18 06:00 Intake and Output: 03/08/18 03/08/18 06:59 18:59 Intake Total 1778 Output Total 525 Balance 1253 - Medications Medications: Current Medications Aspirin (Aspirin Chewable) 81 mg PO DAILY [facility] Last Admin: 03/07/18 10:09 Dose: 81 mg Carvedilol (Coreg) 6.25 mg PO BID [facility] Last Admin: 03/07/18 17:04 Dose: 6.25 mg Heparin Sodium/Sodium Chloride (Heparin 73064 Units/250ml 1/2 Normal Saline) 25,000 units in 250 mls @ 6.532 mls/hr IV .Q24H [facility]; Protocol Last Admin: 03/07/18 09:47 Dose: 12 units/kg/hr, 6.532 mls/hr Piperacillin Sod/Tazobactam Sod (Zosyn 2.25 Gm In 0.9% 100 Ml) 2.25 gm in 100 mls @ 100 mls/hr IVPB Q12 [facility]; Protocol Last Admin: 03/07/18 21:50 Dose: 100 mls/hr Potassium Phosphate 15 mmole/ (Dextrose) 255 mls @ 42.5 mls/hr IVPB ONCE ONE Stop: 03/08/18 13:27 Insulin Detemir (Levemir) 20 unit SC HS [facility] Insulin Human Lispro (Humalog Low) 0 units SC ACHS [facility]; Protocol Last Admin: 03/07/18 22:00 Dose: Not Given Insulin Human Lispro (Humalog) 6 units SC AC [facility] Levothyroxine Sodium (Synthroid) 100 mcg PO 0600 [facility] Last Admin: 03/08/18 05:29 Dose: 100 mcg Pantoprazole Sodium (Protonix Ec Tab) 40 mg PO 0600 [facility] Last Admin: 03/08/18 05:28 Dose: 40 mg Polyethylene Glycol (Miralax) 17 gm PO DAILY [facility] Last Admin: 03/07/18 09:47 Dose: 17 gm - Labs Labs: 03/08/18 06:00 03/08/18 06:00 PT 10.6 SECONDS (9.4-12.5) 03/05/18 09:40 INR 0.92 03/05/18 09:40 APTT 59.1 Seconds (25.1-36.5) H 03/08/18 06:00 Assessment and Plan - Assessment and Plan (Free Text) Assessment: NSTEMI DKA CAD/CABG twice Breast ca. with L. mastectomy HBP HLD Hypothyroidism Depression DNR/DNI Plan: AB Heparin drip ASA, Coreg Add lisinopril 2.5 daily. Titrate OOB to chair Tel. bed Monitor: labs, I/O, BSs, sats., etc.
[2018-03-08 08:06] LABS: HEPATITIS B SURFACE AG Negative (NEGATIVE)
[2018-03-08 08:12] LABS: HEPATITIS A IGM NEGATIVE (NEGATIVE); HEPATITIS B CORE AB NEGATIVE (NEGATIVE)
[2018-03-08 08:23] LABS: HEPATITIS C ANTIBODY NEGATIVE (NEGATIVE)
[2018-03-08] MEDS: Insulin Lispro (humaLOG) LOW Coverage SC SCH ×4 (08:40→22:10)
--- NOTE | 2018-03-08 09:31 | CARD ---
APPROVED REPORT Date of service: 03/08/2018 EKG Measurement Heart [id number] [id number] <Conclusion> Sinus rhythm with sinus arrhythmia with short NJ Right bundle branch block NSSTW changes No change
--- NOTE | 2018-03-08 10:02 | US ---
Date of service: 03/08/2018 HISTORY: transamnitis COMPARISON: Abdomen pelvis CT 01/07/2018. TECHNIQUE: Sonographic evaluation of the abdomen. FINDINGS: Incidental limited right pleural effusion identified. LIVER: Measures 13.8 cm. Normal echogenicity of the liver parenchyma. No mass. No intrahepatic bile duct dilatation. GALLBLADDER: Grossly thickened gallbladder wall is suggested up to 5.0 mm with extensive heterogeneous fluid surrounding it suspicious for potential phlegmon or even abscess. No cholelithiasis appreciable. COMMON BILE DUCT: Measures 4.3 mm. No stones. No dilatation. PANCREAS: Pancreas completely obscured by overlying bowel gas. RIGHT KIDNEY: Measures 10.1cm. Normal echogenicity. No calculus, mass, or hydronephrosis. LEFT KIDNEY: Measures 8.1cm. Lower limits normal size left kidney, normal echogenicity. No calculus, mass, or hydronephrosis. SPLEEN: No splenic lesion is identified and there is no splenomegaly however there is moderate left upper quadrant ascites appreciated. Trace right-sided ascites was encountered as well. AORTA: No aneurysmal dilatation. IVC: Unremarkable. OTHER FINDINGS: None. IMPRESSION: Interval grossly abnormal appearing gallbladder with mural thickening and gross complicated pericholecystic fluid/phlegmon potentially reflecting abscess. No sonographic evidence of biliary tree dilatation however acalculous cholecystitis is in question and further clinical correlation is recommended. [id number] abdominal ascites. Pancreas completely obscured by overlying bowel gas.
[2018-03-08] MEDS: POLYETHYLENE GLYCOL 3350 17 GM/Dose PACKET PO SCH (10:34)
[2018-03-08] MEDS: Piperacillin/Tazobact 2.25gm 2.25 GM/100 ML BAG IVPB SCH (10:35)
--- NOTE | 2018-03-08 10:48 | CP.PCM.PN ---
<Fahad Troncoso - Last Filed: 03/08/18 10:53> Subjective - Date & Time of Evaluation Date of Evaluation: 03/08/18 Time of Evaluation: 08:10 - Subjective Subjective: PGY6 GI Fellow Progress Note Patient seen and examined bedside this morning. The patient admits to feeling well today and states that "she never really felt that bad", despite initial evaluation. No events overnight. 12 system ROS performed and negative except where stated Objective - Vital Signs/Intake and Output Vital Signs (last 24 hours): Temp Pulse Resp BP Pulse Ox 98.8 F 79 22 139/58 L 96 03/08/18 08:00 03/08/18 08:00 03/08/18 08:00 03/08/18 08:00 03/08/18 08:00 Intake and Output: 03/08/18 03/08/18 06:59 18:59 Intake Total 1778 Output Total 525 Balance 1253 - Medications Medications: Current Medications Aspirin (Aspirin Chewable) 81 mg PO DAILY [facility] Last Admin: 03/07/18 10:09 Dose: 81 mg Carvedilol (Coreg) 6.25 mg PO BID [facility] Last Admin: 03/07/18 17:04 Dose: 6.25 mg Dextrose (Dextrose 50% Inj) 50 ml IVP ONCE PRN PRN Reason: Hypoglycemia Heparin Sodium/Sodium Chloride (Heparin 14784 Units/250ml 1/2 Normal Saline) 25,000 units in 250 mls @ 6.532 mls/hr IV .Q24H [facility]; Protocol Last Admin: 03/07/18 09:47 Dose: 12 units/kg/hr, 6.532 mls/hr Piperacillin Sod/Tazobactam Sod (Zosyn 2.25 Gm In 0.9% 100 Ml) 2.25 gm in 100 mls @ 100 mls/hr IVPB Q12 [facility]; Protocol Last Admin: 03/07/18 21:50 Dose: 100 mls/hr Potassium Phosphate 15 mmole/ (Dextrose) 255 mls @ 42.5 mls/hr IVPB ONCE ONE Stop: 03/08/18 13:27 Insulin Detemir (Levemir) 20 unit SC HS [facility] Insulin Human Lispro (Humalog Low) 0 units SC ACHS [facility]; Protocol Last Admin: 03/08/18 08:40 Dose: Not Given Insulin Human Lispro (Humalog) 6 units SC AC [facility] Last Admin: 03/08/18 07:30 Dose: Not Given Levothyroxine Sodium (Synthroid) 100 mcg PO 0600 [facility] Last Admin: 03/08/18 05:29 Dose: 100 mcg Lisinopril (Zestril) 2.5 mg PO DAILY [facility] Pantoprazole Sodium (Protonix Ec Tab) 40 mg PO 0600 [facility] Last Admin: 03/08/18 05:28 Dose: 40 mg Polyethylene Glycol (Miralax) 17 gm PO DAILY [facility] Last Admin: 03/07/18 09:47 Dose: 17 gm - Labs Labs: 03/08/18 06:00 03/08/18 06:00 PT 10.6 SECONDS (9.4-12.5) 03/05/18 09:40 INR 0.92 03/05/18 09:40 APTT 59.1 Seconds (25.1-36.5) H 03/08/18 06:00 - Constitutional Appears: Non-toxic, No Acute Distress - Eye Exam Eye Exam: EOMI, PERRL - ENT Exam ENT Exam: Mucous Membranes Moist - Respiratory Exam Respiratory Exam: Clear to Ausculation Bilateral. absent: Rales, Rhonchi, Wheezes - Cardiovascular Exam Cardiovascular Exam: RRR, +S1, +S2 - GI/Abdominal Exam GI & Abdominal Exam: Soft, Normal Bowel Sounds. absent: Distended, Firm, Guarding, Rigid, Tenderness, Organomegaly - Extremities Exam Extremities Exam: Normal Inspection. absent: Pedal Edema - Neurological Exam Neurological Exam: Alert, Awake, Oriented x3 - Psychiatric Exam Psychiatric exam: Normal Affect, Normal Mood - Skin Skin Exam: Dry, Warm Assessment and Plan - Assessment and Plan (Free Text) Assessment: Patient is an 82yo female with PMHx significant for CAD s/p CABG, DM, HTN, breast cancer s/p lumpectomy in remission who presented with altered mental status -AMS -DKA -ACS/NSTEMI -Elevated LFTs, hepatocellular pattern -Pericholecystic abscess -FOBT+ Plan: -LFT abnormality was suspected 2/2 ischemic hepatopathy however in light of U/S findings, recommend follow up CT scan to evaluate intraabdominal process -Continue broad spectrum antibiotics given possibility for abscess formation -CT abdomen/pelvis ordered -Viral hepatitis profile negative -No overt GI bleeding during admission -NSTEMI management per primary team - remains on heparin gtt <Jonathon,Kovil V - Last Filed: 03/08/18 23:54> Objective - Vital Signs/Intake and Output Vital Signs (last 24 hours): Temp Pulse Resp BP Pulse Ox 98.8 F 71 18 137/52 L 97 03/08/18 16:00 18 18:00 03/08/18 16:00 03/08/18 17:59 03/08/18 12:00 Intake and Output: 18 18 18:59 06:59 Intake Total 2250 Output Total 650 Balance 1600 - Medications Medications: Current Medications Aspirin (Aspirin Chewable) 81 mg PO DAILY [facility] Last Admin: 03/08/18 10:35 Dose: 81 mg Carvedilol (Coreg) 6.25 mg PO BID [facility] Last Admin: 03/08/18 17:59 Dose: 6.25 mg Dextrose (Dextrose 50% Inj) 50 ml IVP ONCE PRN PRN Reason: Hypoglycemia Heparin Sodium/Sodium Chloride (Heparin 83746 Units/250ml 1/2 Normal Saline) 25,000 units in 250 mls @ 6.532 mls/hr IV .Q24H [facility]; Protocol Last Admin: 03/07/18 09:47 Dose: 12 units/kg/hr, 6.532 mls/hr Piperacillin Sod/Tazobactam Sod (Zosyn 3.375 In Ns 100ml) 100 mls @ 25 mls/hr IVPB Q8 [facility] Last Admin: 03/08/18 21:55 Dose: 25 mls/hr Insulin Detemir (Levemir) 12 unit SC HS [facility] Last Admin: 03/08/18 21:56 Dose: 12 units Insulin Human Lispro (Humalog Low) 0 units SC ACHS [facility]; Protocol Last Admin: 03/08/18 22:10 Dose: Not Given Insulin Human Lispro (Humalog) 6 units SC AC [facility] Last Admin: 03/08/18 17:58 Dose: 6 u Levothyroxine Sodium (Synthroid) 100 mcg PO 0600 [facility] Last Admin: 03/08/18 05:29 Dose: 100 mcg Lisinopril (Zestril) 2.5 mg PO DAILY [facility] Last Admin: 03/08/18 10:35 Dose: 2.5 mg Pantoprazole Sodium (Protonix Ec Tab) 40 mg PO 0600 [facility] Last Admin: 03/08/18 05:28 Dose: 40 mg Polyethylene Glycol (Miralax) 17 gm PO DAILY [facility] Last Admin: 03/08/18 10:34 Dose: 17 gm - Labs Labs: 03/08/18 06:00 03/08/18 06:00 PT 10.6 SECONDS (9.4-12.5) 03/05/18 09:40 INR 0.92 03/05/18 09:40 APTT 59.1 Seconds (25.1-36.5) H 03/08/18 06:00 Attending/Attestation - Attestation I have personally seen and examined this patient.: Yes I have fully participated in the care of the patient.: Yes I have reviewed all pertinent clinical information, including history, physical exam and plan: Yes Notes (Text): p 03/08/18 23:54
[2018-03-08] MEDS ORDERED: Iohexol 350 MG/100 ML VIAL ONE (11:27)
--- NOTE | 2018-03-08 12:42 | CP.PCM.PN ---
<Clyde Simons - Last Filed: 03/08/18 14:42> Subjective - Date & Time of Evaluation Date of Evaluation: 03/08/18 Time of Evaluation: 09:20 - Subjective Subjective: Medicine Progress Note for Hospitalist Service, Dr. Katarina Simons, DO PGY-1 Pt seen and examined at bedside this am. Denies any acute complaints, resting comfortably at bedside. AAOx2, not oriented to time. Denies chest pain, fever, chills, shortness of breath, n/v/d/c, abd pain, urinary complaints, or other symptoms. Per overnight report pt's fingersticks were low, given D50. Objective - Vital Signs/Intake and Output Vital Signs (last 24 hours): Temp Pulse Resp BP Pulse Ox 98.8 F 73 22 123/52 L 96 03/08/18 08:00 03/08/18 10:35 03/08/18 08:00 03/08/18 10:35 03/08/18 08:00 Intake and Output: 03/08/18 03/08/18 06:59 18:59 Intake Total 1778 Output Total 525 Balance 1253 - Medications Medications: Current Medications Aspirin (Aspirin Chewable) 81 mg PO DAILY [facility] Last Admin: 03/08/18 10:35 Dose: 81 mg Carvedilol (Coreg) 6.25 mg PO BID [facility] Last Admin: 03/08/18 10:35 Dose: 6.25 mg Dextrose (Dextrose 50% Inj) 50 ml IVP ONCE PRN PRN Reason: Hypoglycemia Heparin Sodium/Sodium Chloride (Heparin 76424 Units/250ml 1/2 Normal Saline) 25,000 units in 250 mls @ 6.532 mls/hr IV .Q24H [facility]; Protocol Last Admin: 03/07/18 09:47 Dose: 12 units/kg/hr, 6.532 mls/hr Piperacillin Sod/Tazobactam Sod (Zosyn 2.25 Gm In 0.9% 100 Ml) 2.25 gm in 100 mls @ 100 mls/hr IVPB Q12 [facility]; Protocol Last Admin: 03/08/18 10:35 Dose: 100 mls/hr Potassium Phosphate 15 mmole/ (Dextrose) 255 mls @ 42.5 mls/hr IVPB ONCE ONE Stop: 03/08/18 13:27 Last Admin: 03/08/18 10:42 Dose: 42.5 mls/hr Insulin Detemir (Levemir) 20 unit SC [facility] Insulin Human Lispro (Humalog Low) 0 units SC [facility]; Protocol Last Admin: 03/08/18 08:40 Dose: Not Given Insulin Human Lispro (Humalog) 6 units SC [facility] Last Admin: 03/08/18 07:30 Dose: Not Given Levothyroxine Sodium (Synthroid) 100 mcg PO 0600 [facility] Last Admin: 03/08/18 05:29 Dose: 100 mcg Lisinopril (Zestril) 2.5 mg PO DAILY [facility] Last Admin: 03/08/18 10:35 Dose: 2.5 mg Pantoprazole Sodium (Protonix Ec Tab) 40 mg PO 0600 [facility] Last Admin: 03/08/18 05:28 Dose: 40 mg Polyethylene Glycol (Miralax) 17 gm PO DAILY [facility] Last Admin: 03/08/18 10:34 Dose: 17 gm - Labs Labs: 03/08/18 06:00 03/08/18 06:00 PT 10.6 SECONDS (9.4-12.5) 03/05/18 09:40 INR 0.92 03/05/18 09:40 APTT 59.1 Seconds (25.1-36.5) H 03/08/18 06:00 - Constitutional Appears: Non-toxic, No Acute Distress - Head Exam Head Exam: ATRAUMATIC, NORMOCEPHALIC - Eye Exam Eye Exam: EOMI, Normal appearance, PERRL - ENT Exam ENT Exam: Mucous Membranes Moist - Respiratory Exam Respiratory Exam: Clear to Ausculation Bilateral, NORMAL BREATHING PATTERN. absent: Rales, Rhonchi, Wheezes - Cardiovascular Exam Cardiovascular Exam: REGULAR RHYTHM, +S1, +S2. absent: Gallop, Rubs, Murmur - GI/Abdominal Exam GI & Abdominal Exam: Soft, Normal Bowel Sounds. absent: Distended, Guarding, Tenderness - Extremities Exam Extremities Exam: Normal Capillary Refill, Normal Inspection. absent: Calf Tenderness, Pedal Edema - Neurological Exam Neurological Exam: Alert, Awake, CN II-XII Intact Additional comments: Oriented x2 - Skin Skin Exam: Dry, Intact, Warm Additional comments: Exposed sternotomy wire on chest c/d/i, no purulent drainage or discharge noted from site Assessment and Plan - Assessment and Plan (Free Text) Assessment: 82 y old female, PMhx HTN, HLD, CAD s/p CABG x 2, DM2, hypothyroidism, and breast ca s/p lumpectomy of L breast in remission, who presented with DKA, NSTEMI, new T wave inversions and RBBB on EKG on admission. Currently admitted to [facility]. Plan: AMS 2/2 DKA vs infection, possible UTI - improving - Insulin drip d/c'd, anion gap closed - Fingersticks achs - Levemir 20 U sc hs, Humalog 6 U achs, titrate as appropriate - HHD - Dr. Moon consulted (Endocrinology), recs appreciated NSTEMI - Troponin trend (2.07 => 8.88 => 32.6 => 68.9 => 25.9 => 12.8 => 8.1 since admission) - Pt denying chest pain at this time - Hx FOBT positive on admission, per recs of cardio, continue with IV heparin and ASA, hold Plavix at this time. Not a candidate for coronary intervention or angiography at this time as per Cardiology. -Off pressors, continue to monitor bp - Lisinopril 2.5 mg daily added as per Cardio - Trend EKGs - Cardiology consulted, Dr. Garzon, recs appreciated UTI - UA + for LE, WBC and bacteria - Urine cx positive for E. coli, resistant to ampicillin, otherwise schmidt- sensitive - Blood cxs x 2 no growth for 3 days - C/w zosyn 2.25 g q 12 h; ID consulted, recs appreciated - Afebrile, denies abdominal pain - WBC 9.9 this am, trending down Transaminitis - Likely 2/2 demand ischemia, will continue to monitor - AST 172, ALT 201, ALP 85 this am, trending down - Viral hepatitis profile neg - Pt denying abd pain at this time -GI consulted (Dr. Holt), recs appreciated; recommended IV Protonix bid, active GI bleed unlikely in setting of positive FOBT on admission and improving Hgb -Abd U/s: interval grossly abnormal appearing gallbladder with mural thickening and gross complicated pericholecystic fluid/phlegmon potentially reflecting abscess. No sonographic evidence of biliary tree dilation however acalculous cholecystitis is in question and further clinical correlation is recommended. [id number] abdominal ascites. Pancreas completely obscured by overlying bowel gas. -Pending Abd/pelvis CT, will f/u GI recs Wound at superior sternotomy border - Small clean dry wound with surrounding erythema at superior border of sternotomy with sternotomy wire protruding - Nontender, no purulence, no discharge - Wound culture 03/05, growing Corynebacterium species Microcytic Anemia - Positive Guaiac in ED - Stool occult blood ordered - Pt denies gross blood in stool - No active bleeding at this time - Plavix held as per Cardio recs; currently on Heparin drip and ASA - Last colonoscopy age 72, pt reports no abnormalities - Will continue to reassess; most recent H/H today 10.1/29.6 DVT ppx: SCD GI ppx: Protonix bid Diet: HHD Currently DNR/DNI status Pt seen, examined with, and plan discussed with Dr. Shannon, attending physician. Clyde Simons DO PGY-1, Chemical Processing Supervisor Pager #[phone] <Katarina Shannon R - Last Filed: 03/08/18 15:39> Objective - Vital Signs/Intake and Output Vital Signs (last 24 hours): Temp Pulse Resp BP Pulse Ox 98.6 F 70 21 125/59 L 97 03/08/18 12:00 03/08/18 14:00 03/08/18 12:00 03/08/18 12:00 03/08/18 12:00 Intake and Output: 03/08/18 03/08/18 06:59 18:59 Intake Total 1778 Output Total 525 Balance 1253 - Medications Medications: Current Medications Aspirin (Aspirin Chewable) 81 mg PO DAILY [facility] Last Admin: 03/08/18 10:35 Dose: 81 mg Carvedilol (Coreg) 6.25 mg PO BID [facility] Last Admin: 03/08/18 10:35 Dose: 6.25 mg Dextrose (Dextrose 50% Inj) 50 ml IVP ONCE PRN PRN Reason: Hypoglycemia Heparin Sodium/Sodium Chloride (Heparin 05933 Units/250ml 1/2 Normal Saline) 25,000 units in 250 mls @ 6.532 mls/hr IV .Q24H [facility]; Protocol Last Admin: 03/07/18 09:47 Dose: 12 units/kg/hr, 6.532 mls/hr Piperacillin Sod/Tazobactam Sod (Zosyn 3.375 In Ns 100ml) 100 mls @ 25 mls/hr IVPB Q8 [facility] Insulin Detemir (Levemir) 12 unit SC HS [facility] Insulin Human Lispro (Humalog Low) 0 units SC ACHS [facility]; Protocol Last Admin: 03/08/18 12:58 Dose: Not Given Insulin Human Lispro (Humalog) 6 units SC AC [facility] Last Admin: 03/08/18 12:57 Dose: 6 u Levothyroxine Sodium (Synthroid) 100 mcg PO 0600 [facility] Last Admin: 03/08/18 05:29 Dose: 100 mcg Lisinopril (Zestril) 2.5 mg PO DAILY [facility] Last Admin: 03/08/18 10:35 Dose: 2.5 mg Pantoprazole Sodium (Protonix Ec Tab) 40 mg PO 0600 [facility] Last Admin: 03/08/18 05:28 Dose: 40 mg Polyethylene Glycol (Miralax) 17 gm PO DAILY [facility] Last Admin: 03/08/18 10:34 Dose: 17 gm - Labs Labs: 03/08/18 06:00 03/08/18 06:00 PT 10.6 SECONDS (9.4-12.5) 03/05/18 09:40 INR 0.92 03/05/18 09:40 APTT 59.1 Seconds (25.1-36.5) H 03/08/18 06:00 Attending/Attestation - Attestation I have personally seen and examined this patient.: Yes I have fully participated in the care of the patient.: Yes I have reviewed all pertinent clinical information, including history, physical exam and plan: Yes Notes (Text): Patient seen and examined by me with resident at 9:20 AM on 03/08/18. Case including HPI, physical exam, and assessment and plan discussed with resident. Agree with above with following additions/corrections. Patient is an 82-year-old female past medical history significant for hypertension, hyperlipidemia, type 2 diabetes, breast cancer status post lumpectomy, and coronary artery disease status post CABG that presented to the emergency room with confusion and altered mental status. Patient is oriented x 2 today. Patient is not oriented to time. Patient states that she is feeling better today. States she feels sleepy. She is eating but doesnt have much of an appetite. Patient denies any chest pain or shortness of breath. No headaches or dizziness. No fevers or chills. No nausea, vomiting, or abdominal pain. Physical exam: General: Awake and alert lying in bed in no acute distress HEENT: Normocephalic, atraumatic. Extraocular muscles intact, pupils equal and reactive, no scleral icterus. Oropharynx is pink and moist. Neck is supple. Cardiovascular: Regular rhythm. Normal S1 and S2. Positive systolic murmur. No rubs or gallops appreciated Pulmonary: Normal respiratory effort. Decreased breath sounds. No rhonchi, rales , or wheezing appreciated. Gastrointestinal: Soft, nondistended. Nontender. Positive bowel sounds all 4 quadrants. No guarding. Musculoskeletal: Moves all extremities. No edema appreciated. No calf tenderness. Central nervous system: AAO x 2. CN 2-12 grossly intact Dermatologic: Skin warm and dry.Anterior chest wound with sternotomy wire dressing clean, dry, and intact. No signs of infection (has been there for 2 years per patient). Assessment and plan:Patient is an 82-year-old female past medical history significant for hypertension, hyperlipidemia, type 2 diabetes, breast cancer status post lumpectomy, and coronary artery disease status post CABG that presented to the emergency room with confusion and altered mental status. 1. Toxic metabolic encephalopathy. Improving. Patient AAO x 2 today. Likely multifactorial secondary to UTI, DKA, NSTEMI. Continue to treat underlying causes. Continue supportive care. Head CT per radiologist showed no evidence of acute intracranial hemorrhage or mass effect or midline shift, moderate atrophy and mild to moderate chronic microvascular white matter ischemic changes. 2. DKA. Resolved. Type 1 insulin dependent DM. Endocrinology following, recommendations appreciated. Continue insulin per endocrinology. Patient with periods of hypoglycemia. Insulin dosing decreased. Continue to monitor accuchecks. HgbA1C is 9.7. Diabetic education. 3. NSTEMI with hemodynamic instability. Improved. Hypotension resolved. Cardiology following, recommendations appreciated. Continue with heparin drip. Troponins downtrending. Continue with Coreg and Lisinopril. Continue ASA. Patient not a candidate for current coronary intervention or angiography. 2d ec ho per truck driver helper showed dilated left atrium, normal LV size, moderately reduced LV systolic function with segmental wall hypokinesis, moderate mitral regurgitation and tricuspid regurgitation, EF of approximately 43.1. 4. UTI. Urine culture positive for Escherichia coli. Patient on Zosyn. Patient afebrile. Leukocytosis resolved. 5. Transaminitis. Likely ischemic hepatitis secondary to hypotension. LFTs downtrending. GI following, recommendations appreciated. Abdominal ultrasound per radiologist showed interval grossly abnormal appearing gallbladder with mural thickening in [place] complicated pericholecystic fluid/phlegmon potentially reflecting abscess, no sonographic evidence of biliary tree dilatation however acalculous cholecystitis is in question, mild to moderate abdominal ascites, pancreas completely obscured by overlying bowel gas. CT abdomen and pelvis ordered, follow-up results. Continue Zosyn for now. ID consulted, follow-up recommendations. 6. Hypokalemia. Resolved. Continue to monitor. 7. Anemia. FOBT positive. H&H slowly downtrending. GI following, recommendations appreciated. Continue Protonix. Continue to monitor CBC 8. Hypothyroidism. Continue Synthroid 9. Sternotomy wound. Continue local wound care. Wound culture with corynebacterium. 10. GI/DVT prophylaxis. Protonix/Heparin drip 11. Advanced directive. Patient is a DNR/DNI. Case was discussed in detail with the patient regarding current diagnosis and treatment plan. All questions answered.
--- NOTE | 2018-03-08 14:58 | CP.PCM.APN ---
Subjective - Date & Time of Evaluation Date of Evaluation: 03/08/18 Time of Evaluation: 11:15 - Subjective Subjective: pt seen in bed in ICu, pt in no distress Pt reports feeling better Review of Systems - Constitutional Constitutional: absent: As Per HPI, Anorexia, Chills, Daytime Sleepiness, Excessive Sweating, Fatigue, Fever, Frequent Falls, Headache, Increased Appetite, Lethargy, Malaise, Night Sweats, Snoring, Sleep Apnea, Weight Gain, Weight Loss, Weakness, Other Objective - Vital Signs/Intake and Output Vital Signs (last 24 hours): Temp Pulse Resp BP Pulse Ox 98.8 F 73 22 123/52 L 96 03/08/18 08:00 03/08/18 10:35 03/08/18 08:00 03/08/18 10:35 03/08/18 08:00 Intake and Output: 03/08/18 03/08/18 06:59 18:59 Intake Total 1778 Output Total 525 Balance 1253 - Medications Medications: Current Medications Aspirin (Aspirin Chewable) 81 mg PO DAILY [facility] Last Admin: 03/08/18 10:35 Dose: 81 mg Carvedilol (Coreg) 6.25 mg PO BID [facility] Last Admin: 03/08/18 10:35 Dose: 6.25 mg Dextrose (Dextrose 50% Inj) 50 ml IVP ONCE PRN PRN Reason: Hypoglycemia Heparin Sodium/Sodium Chloride (Heparin 58893 Units/250ml 1/2 Normal Saline) 25,000 units in 250 mls @ 6.532 mls/hr IV .Q24H [facility]; Protocol Last Admin: 03/07/18 09:47 Dose: 12 units/kg/hr, 6.532 mls/hr Piperacillin Sod/Tazobactam Sod (Zosyn 2.25 Gm In 0.9% 100 Ml) 2.25 gm in 100 mls @ 100 mls/hr IVPB Q12 [facility]; Protocol Last Admin: 03/08/18 10:35 Dose: 100 mls/hr Insulin Detemir (Levemir) 12 unit SC HS [facility] Insulin Human Lispro (Humalog Low) 0 units SC ACHS [facility]; Protocol Last Admin: 03/08/18 12:58 Dose: Not Given Insulin Human Lispro (Humalog) 6 units SC AC [facility] Last Admin: 03/08/18 12:57 Dose: 6 u Levothyroxine Sodium (Synthroid) 100 mcg PO 0600 [facility] Last Admin: 03/08/18 05:29 Dose: 100 mcg Lisinopril (Zestril) 2.5 mg PO DAILY [facility] Last Admin: 03/08/18 10:35 Dose: 2.5 mg Pantoprazole Sodium (Protonix Ec Tab) 40 mg PO 0600 [facility] Last Admin: 03/08/18 05:28 Dose: 40 mg Polyethylene Glycol (Miralax) 17 gm PO DAILY [facility] Last Admin: 03/08/18 10:34 Dose: 17 gm - Labs Labs: 03/08/18 06:00 03/08/18 06:00 PT 10.6 SECONDS (9.4-12.5) 03/05/18 09:40 INR 0.92 03/05/18 09:40 APTT 59.1 Seconds (25.1-36.5) H 03/08/18 06:00 - Constitutional Appears: No Acute Distress - Head Exam Head Exam: NORMAL INSPECTION, NORMOCEPHALIC - Eye Exam Eye Exam: Normal appearance Pupil Exam: NORMAL ACCOMODATION - Respiratory Exam Respiratory Exam: NORMAL BREATHING PATTERN - Cardiovascular Exam Cardiovascular Exam: +S1, +S2 - GI/Abdominal Exam GI & Abdominal Exam: Normal Bowel Sounds - Psychiatric Exam Psychiatric exam: Normal Affect, Normal Mood Assessment and Plan - Assessment and Plan (Free Text) Plan: Microbiology 03/05/18 13:30 Gram Stain - Final Chest Wound Culture - Final Corynebacterium Species 03/05/18 10:07 Blood Culture - Preliminary Blood NO GROWTH AFTER 3 DAYS 03/05/18 09:37 Blood Culture - Preliminary Blood NO GROWTH AFTER 3 DAYS 82 yr old female with pmh sig for dm, htn, hld brest ca s/p lumpectomy, cabg x2 who presented to the Er with ams/ confusion per daughter now being amanaged in the ICU for NSTEMI, DKA, JUAN and lactid acidosis as well as E coli UTI whose initial glucose levels were at 936 , troponins 8.10 now on IV heparin drip, now s/p iV insulin drip with insulin coverages cardiology notes rev'd - medical mgmt on telemetry , trop trending dwon from 8 to 6.49 Endocrine notes rev'd re DKA - ivf, monitor anion gap, trend blood dugar levels, insulin regimen sternotomy wound - wound culture noted as above , on iv antibiotics E coli UTI abn LFT-? ischemic hepatopathy : ct abd /pelvis ordered to rule out abscess Will follow clinical course
--- NOTE | 2018-03-08 15:55 | CT ---
Date of service: 03/08/2018 PROCEDURE: CT Abdomen and Pelvis with and without intravenous contrast HISTORY: abn LFTs, eval RUQ abscess COMPARISON: 01/08/2018 TECHNIQUE: Axial images of the abdomen were obtained in the pre contrast, portal venous and delayed phases of enhancement. Coronal and sagittal reformats were generated. Contrast dose: Radiation dose: Total exam DLP = 566.73 mGy-cm. This CT exam was performed using one or more of the following dose reduction techniques: Automated exposure control, adjustment of the mA and/or kV according to patient size, and/or use of iterative reconstruction technique. FINDINGS: LOWER THORAX: New large bilateral pleural effusions with atelectasis at the lung bases. Anasarca. LIVER: Unremarkable. No gross lesion or ductal dilatation. GALLBLADDER AND BILE DUCTS: Unremarkable. PANCREAS: Unremarkable. No gross lesion or ductal dilatation. SPLEEN: Unremarkable. ADRENALS: Unremarkable. No mass. KIDNEYS AND URETERS: Unremarkable. No hydronephrosis. No solid mass. VASCULATURE: Unremarkable. No aortic aneurysm. Aortic calcifications. BOWEL: Colonic diverticulosis. No obstruction. No gross mural thickening. APPENDIX: Normal appendix. PERITONEUM: Pelvic ascites. LYMPH NODES: Unremarkable. No enlarged lymph nodes. BLADDER: Rollins catheter with air in the urinary bladder lumen likely post instrumentation. REPRODUCTIVE: Leiomyomatous uterus. BONES: No acute fracture. OTHER FINDINGS: None. IMPRESSION: No evidence of right upper quadrant abscess. Large bilateral pleural effusions with compressive atelectasis. Pelvic ascites with anasarca. Colonic diverticulosis. Leiomyomatous uterus.
--- NOTE | 2018-03-08 19:04 | PN ---
DATE: 03/08/2018 ENDO FOLLOWUP NOTE LOCATION: In ICU room 128, bed 4. This is an 82-year-old female with recent uncontrolled type 2 insulin-requiring diabetes, presenting here with diabetic ketoacidosis and dehydration and has since then improved clinically and metabolically as noted overnight. She actually had marked hyperglycemic accelerations yesterday, but with the initiation of a basal and bolus insulin regimen has improved accordingly as noted overnight. Her glucose levels were actually 94 early this morning and dropped to 49 at 7 o'clock as noted. The latest glucose values have ranged from 146-196 mg/dL. Her latest chemistry showed a BUN of 15, sodium 132, potassium 3.8, chloride 110, CO2 19, glucose 60 and creatinine 0.8. ASSESSMENT: This is an 82-year-old female with recent uncontrolled type 2 insulin-requiring diabetes, presenting here with diabetic ketoacidosis and dehydration and has since then improved clinically and metabolically as noted thereof. She also has an acute myocardial infarction of the [id number] type as noted and is being followed closely for hemodynamic monitoring in the ICU as noted. Plan of management, we will modify her current insulin regimen as her oral intake remains quite variable as per the nursing staff. We will lower the Humalog down to 6 units subcu t.i.d. before meals as ordered. We will also lower the basal insulin with Levemir to be given as 12 units subcu at bedtime daily to start tonight. We will continue the low-dose correction scale using Humalog insulin as given to obviate hypoglycemia. We will obtain serial chemistries and supplement accordingly as needed. She has ongoing heparin infusion as given. We will also obtain serial chemistries and supplement accordingly as needed. We will follow. Myrtle Moon MD
--- NOTE | 2018-03-08 19:47 | CP.PCM.CON ---
History of Present Illness - History of Present Illness History of Present Illness: Infectious Disease Consultation: March 08, 2018 82 yo female found unconscious by her daughter at patient's home. Brought to [facility] for medical care and found to have Lactic acid of 7.6 on admission and pro calcitonin of 4.12. The patient is currently awake and alert. Cultures of the urine with E. coli and cultures of the chest with Corynebacterium. The patient has received Zosyn IV and Vancomycin IV for antibiotic treatment. Patient making no complaints at this time. PMHx: HTN, HLD, DM, Breast Cancer, CAD PSHx: left breast lumpectomy, CABG x 2 vessels Allergies: NKDA Social Hx: No tobacco, EtOH, or illicit drug use. Active Medications Aspirin (Aspirin Chewable) 81 mg PO DAILY [facility] Last Admin: 03/08/18 10:35 Dose: 81 mg Carvedilol (Coreg) 6.25 mg PO BID [facility] Last Admin: 03/08/18 17:59 Dose: 6.25 mg Dextrose (Dextrose 50% Inj) 50 ml IVP ONCE PRN PRN Reason: Hypoglycemia Heparin Sodium/Sodium Chloride (Heparin 96950 Units/250ml 1/2 Normal Saline) 25,000 units in 250 mls @ 6.532 mls/hr IV .Q24H [facility]; Protocol Last Admin: 03/07/18 09:47 Dose: 12 units/kg/hr, 6.532 mls/hr Piperacillin Sod/Tazobactam Sod (Zosyn 3.375 In Ns 100ml) 100 mls @ 25 mls/hr IVPB Q8 [facility] Insulin Detemir (Levemir) 12 unit SC HS [facility] Insulin Human Lispro (Humalog Low) 0 units SC ACHS [facility]; Protocol Last Admin: 03/08/18 17:59 Dose: Not Given Insulin Human Lispro (Humalog) 6 units SC AC [facility] Last Admin: 03/08/18 17:58 Dose: 6 u Levothyroxine Sodium (Synthroid) 100 mcg PO 0600 [facility] Last Admin: 03/08/18 05:29 Dose: 100 mcg Lisinopril (Zestril) 2.5 mg PO DAILY [facility] Last Admin: 03/08/18 10:35 Dose: 2.5 mg Pantoprazole Sodium (Protonix Ec Tab) 40 mg PO 0600 [facility] Last Admin: 03/08/18 05:28 Dose: 40 mg Polyethylene Glycol (Miralax) 17 gm PO DAILY [facility] Last Admin: 03/08/18 10:34 Dose: 17 gm Family Hx: HTN in father ROS: No current fevers, chills, nausea, vomiting, diarrhea, headaches, dizziness, chest pain, abdominal pain, melena, hematuria, hematemesis, hematochezia, vision loss, hearing loss. Patient had loss of consciousness. Past Patient History - Infectious Disease Hx of Infectious Diseases: None - Past Social History Smoking Status: Never Smoked - CARDIAC Hx Cardiac Disorders: Yes Other/Comment: triple bypass - PULMONARY Hx Respiratory Disorders: No - NEUROLOGICAL Hx Neurological Disorder: No - HEENT Hx HEENT Problems: No - RENAL Hx Chronic Kidney Disease: No - ENDOCRINE/METABOLIC Hx Endocrine Disorders: Yes Hx Diabetes Mellitus Type 2: Yes - HEMATOLOGICAL/ONCOLOGICAL Hx Blood Disorders: No - INTEGUMENTARY Hx Dermatological Problems: No - MUSCULOSKELETAL/RHEUMATOLOGICAL Hx Musculoskeletal Disorders: No - GASTROINTESTINAL Hx Gastrointestinal Disorders: No - GENITOURINARY/GYNECOLOGICAL Hx Genitourinary Disorders: No - PSYCHIATRIC Hx Psychophysiologic Disorder: No Hx Substance Use: No - SURGICAL HISTORY Hx Open Heart Surgery: Yes (CABG x2) Other/Comment: breast Ca R lumphectomy - ANESTHESIA Hx Anesthesia: Yes Hx Anesthesia Reactions: No Hx Malignant Hyperthermia: No Meds Allergies/Adverse Reactions: Allergies Allergy/AdvReac Type Severity Reaction Status Date / Time No Known Allergies Allergy Verified 03/05/18 09:24 - Medications Medications: Current Medications Aspirin (Aspirin Chewable) 81 mg PO DAILY [facility] Last Admin: 03/08/18 10:35 Dose: 81 mg Carvedilol (Coreg) 6.25 mg PO BID [facility] Last Admin: 03/08/18 17:59 Dose: 6.25 mg Dextrose (Dextrose 50% Inj) 50 ml IVP ONCE PRN PRN Reason: Hypoglycemia Heparin Sodium/Sodium Chloride (Heparin 00044 Units/250ml 1/2 Normal Saline) 25,000 units in 250 mls @ 6.532 mls/hr IV .Q24H [facility]; Protocol Last Admin: 03/07/18 09:47 Dose: 12 units/kg/hr, 6.532 mls/hr Piperacillin Sod/Tazobactam Sod (Zosyn 3.375 In Ns 100ml) 100 mls @ 25 mls/hr IVPB Q8 [facility] Insulin Detemir (Levemir) 12 unit SC HS [facility] Insulin Human Lispro (Humalog Low) 0 units SC ACHS [facility]; Protocol Last Admin: 03/08/18 17:59 Dose: Not Given Insulin Human Lispro (Humalog) 6 units SC AC [facility] Last Admin: 03/08/18 17:58 Dose: 6 u Levothyroxine Sodium (Synthroid) 100 mcg PO 0600 [facility] Last Admin: 03/08/18 05:29 Dose: 100 mcg Lisinopril (Zestril) 2.5 mg PO DAILY [facility] Last Admin: 03/08/18 10:35 Dose: 2.5 mg Pantoprazole Sodium (Protonix Ec Tab) 40 mg PO 0600 [facility] Last Admin: 03/08/18 05:28 Dose: 40 mg Polyethylene Glycol (Miralax) 17 gm PO DAILY [facility] Last Admin: 03/08/18 10:34 Dose: 17 gm Physical Exam - Constitutional Appears: Non-toxic, No Acute Distress - Head Exam Head Exam: ATRAUMATIC, NORMOCEPHALIC - Eye Exam Eye Exam: EOMI, PERRL Pupil Exam: NORMAL ACCOMODATION, PERRL - ENT Exam ENT Exam: Mucous Membranes Moist, Normal External Ear Exam, TM's Normal Bilaterally - Neck Exam Neck exam: Positive for: Full Rom, Normal Inspection - Respiratory Exam Respiratory Exam: Clear to Auscultation Bilateral, NORMAL BREATHING PATTERN. absent: Rales, Rhonchi, Wheezes - Cardiovascular Exam Cardiovascular Exam: REGULAR RHYTHM, RRR, +S1, +S2 - GI/Abdominal Exam GI & Abdominal Exam: Normal Bowel Sounds, Soft. absent: Distended, Tenderness - Extremities Exam Extremities exam: Negative for: joint swelling, pedal edema - Neurological Exam Neurological exam: Alert, CN II-XII Intact, Oriented x3 - Psychiatric Exam Psychiatric exam: Normal Affect, Normal Mood - Skin Skin Exam: Intact, Normal Color Results - Vital Signs Recent Vital Signs: Last Vital Signs Temp 98.8 F 03/08/18 16:00 Pulse 71 03/08/18 18:00 Resp 18 03/08/18 16:00 BP 137/52 L 03/08/18 17:59 Pulse Ox 97 03/08/18 12:00 - Labs Result Diagrams: 03/08/18 06:00 03/08/18 06:00 Labs: Laboratory Results - last 24 hr 03/07/18 03/07/18 03/07/18 06:00 12:28 15:59 WBC RBC Hgb Hct MCV MCH MCHC RDW Plt Count MPV Gran % Lymph % (Auto) [place] % (Auto) Eos % (Auto) Baso % (Auto) Gran # Lymph # (Auto) [place] # (Auto) Eos # (Auto) Baso # (Auto) APTT Sodium Potassium Chloride Carbon Dioxide Anion Gap BUN Creatinine Est GFR ( Amer) Est GFR (Non-Af Amer) POC Glucose (mg/dL) 275 H 300 H Random Glucose Calcium Phosphorus Magnesium Total Bilirubin AST ALT Alkaline Phosphatase Troponin I Total Protein Albumin Globulin Albumin/Globulin Ratio Hepatitis A IgM Ab Negative Hep Bs Antigen Negative Hep B Core IgM Ab Negative Hepatitis C Antibody Negative 03/07/18 03/07/18 03/08/18 22:26 23:40 00:51 WBC RBC Hgb Hct MCV MCH MCHC RDW Plt Count MPV Gran % Lymph % (Auto) [place] % (Auto) Eos % (Auto) Baso % (Auto) Gran # Lymph # (Auto) [place] # (Auto) Eos # (Auto) Baso # (Auto) APTT Sodium Potassium Chloride Carbon Dioxide Anion Gap BUN Creatinine Est GFR ( Amer) Est GFR (Non-Af Amer) POC Glucose (mg/dL) 89 64 L 94 Random Glucose Calcium Phosphorus Magnesium Total Bilirubin AST ALT Alkaline Phosphatase Troponin I Total Protein Albumin Globulin Albumin/Globulin Ratio Hepatitis A IgM Ab Hep Bs Antigen Hep B Core IgM Ab Hepatitis C Antibody 03/08/18 03/08/18 03/08/18 06:00 06:00 06:00 WBC 9.9 D RBC 3.26 L Hgb 10.1 L Hct 29.6 L MCV 90.8 MCH 31.0 MCHC 34.1 RDW 14.8 H Plt Count 176 MPV 9.5 Gran % 77.1 H Lymph % (Auto) 11.[address] [place] % (Auto) 10.1 H Eos % (Auto) 1.2 L Baso % (Auto) 0.1 Gran # 7.60 H Lymph # (Auto) 1.[address] [place] # (Auto) 1.0 H Eos # (Auto) 0.1 Baso # (Auto) 0.01 APTT 59.1 H Sodium 132 Potassium 3.8 Chloride 110 H Carbon Dioxide 19 L Anion Gap 7 L BUN 15 Creatinine 0.8 Est GFR ( Amer) > 60 Est GFR (Non-Af Amer) > 60 POC Glucose (mg/dL) Random Glucose 60 L Calcium 8.3 L Phosphorus 2.1 L Magnesium 1.8 Total Bilirubin 0.6 AST 172 H D ALT 201 H Alkaline Phosphatase 85 Troponin I 8.10 H* D Total Protein 5.2 L Albumin 2.6 L Globulin 2.6 Albumin/Globulin Ratio 1.0 L Hepatitis A IgM Ab Hep Bs Antigen Hep B Core IgM Ab Hepatitis C Antibody 03/08/18 03/08/18 03/08/18 07:16 08:34 11:26 WBC RBC Hgb Hct MCV MCH MCHC RDW Plt Count MPV Gran % Lymph % (Auto) [place] % (Auto) Eos % (Auto) Baso % (Auto) Gran # Lymph # (Auto) [place] # (Auto) Eos # (Auto) Baso # (Auto) APTT Sodium Potassium Chloride Carbon Dioxide Anion Gap BUN Creatinine Est GFR ( Amer) Est GFR (Non-Af Amer) POC Glucose (mg/dL) 49 L 146 H 196 H Random Glucose Calcium Phosphorus Magnesium Total Bilirubin AST ALT Alkaline Phosphatase Troponin I Total Protein Albumin Globulin Albumin/Globulin Ratio Hepatitis A IgM Ab Hep Bs Antigen Hep B Core IgM Ab Hepatitis C Antibody 03/08/18 03/08/18 13:00 16:01 WBC RBC Hgb Hct MCV MCH MCHC RDW Plt Count MPV Gran % Lymph % (Auto) [place] % (Auto) Eos % (Auto) Baso % (Auto) Gran # Lymph # (Auto) [place] # (Auto) Eos # (Auto) Baso # (Auto) APTT Sodium Potassium Chloride Carbon Dioxide Anion Gap BUN Creatinine Est GFR ( Amer) Est GFR (Non-Af Amer) POC Glucose (mg/dL) 169 H Random Glucose Calcium Phosphorus Magnesium Total Bilirubin AST ALT Alkaline Phosphatase Troponin I 6.49 H* Total Protein Albumin Globulin Albumin/Globulin Ratio Hepatitis A IgM Ab Hep Bs Antigen Hep B Core IgM Ab Hepatitis C Antibody Assessment & Plan - Assessment and Plan (Free Text) Assessment: 82 y old female, PMhx HTN, HLD, CAD s/p CABG x 2, DM2, hypothyroidism, and breast ca s/p lumpectomy of L breast in remission, who presented with DKA, NSTEMI, new T wave inversions and RBBB on EKG on admission. The patient also had UTI with E. coli. Started on Zosyn for antibiotic coverage. Blood cultures negative for [address] showing ascites but no abscess. Continue on Zosyn IV for UTI with E. coli and Corynebacterium. Supportive care. Thank you for allowing me to participate in the care of the patient, we will f peyman with you.
[2018-03-08] MEDS: Piperacillin/Tazobact 3.375 gm 100 ML IVPB SCH (21:55)
[2018-03-09] MEDS: Heparin25000 units/250ml 1/2NS 25,000 UNITS/250 ML BAG IV SCH ×2 (00:40→00:50)
[2018-03-09] MEDS: Pantoprazole 40 mg EC Tab PO SCH (05:02)
[2018-03-09] MEDS: Piperacillin/Tazobact 3.375 gm 100 ML IVPB SCH ×3 (05:02→21:20)
[2018-03-09] MEDS: Levothyroxine 100 MCG TAB PO SCH (05:02)
[2018-03-09 06:54] LABS: BASO # 0.01 K/mm3 (0.0-2.0); BASO % 0.1 % (0.0-3.0); EOS # 0.2 (0.0-0.7); EOS % 2.8 % (1.5-5.0); GRAN # 5.79 (1.4-6.5); GRAN % 71.4 % (50.0-68.0); HEMOGLOBIN 10.4 g/dL (12.0-16.0); LYMPH # 1.3 (1.2-3.4); LYMPH % 15.8 % (22.0-35.0); MEAN CELL VOLUME 92.2 fl (80.0-105.0); MEAN CORPUSCULAR HGB CONC 33.7 g/dl (31.0-37.0); MEAN PLATELET VOLUME 9.7 fl (7.0-11.0); MONO # 0.8 (0.1-0.6); MONO % 9.9 % (1.0-6.0); RBC 3.35 10^6/uL (3.5-6.1); RED CELL DISTRIBUTION WIDTH 15.3 % (11.5-14.5); WHITE BLOOD COUNT 8.1 10^3/uL (4.5-11.0)
[2018-03-09 07:31] LABS: ALB/GLOB RATIO 0.9 (1.1-1.8); ALBUMIN 2.6 g/dL (3.0-4.8); ALT/SGPT 171 U/L (7-56); AST/SGOT 109 U/L (14-36); BLOOD UREA NITROGEN 10 mg/dL (7-21); CALCIUM 8.2 mg/dL (8.4-10.5); GFR NON-AFRICAN AMERICAN > 60
--- NOTE | 2018-03-09 08:25 | CP.PCM.PN ---
Subjective - Date & Time of Evaluation Date of Evaluation: 03/09/18 Time of Evaluation: 07:00 - Subjective Subjective: Stable on 2R now. No CP or SOB. V/S noted. RSR PE: Lungs: clear Cor.: S1S2 Abd: soft Ext.: no edema Neuro.: alert I/O= 2750/1350 Labs noted: PTT = 63.6, BMP and CBCOK Urine C+S: E coli BC X2 NG at 3 days Echo noted: Mod LVD with RWMA, Mod. MR and TR. Objective - Vital Signs/Intake and Output Vital Signs (last 24 hours): Temp Pulse Resp BP Pulse Ox 97.9 F 73 19 135/67 98 03/09/18 05:52 03/09/18 05:52 03/09/18 05:52 03/09/18 05:52 03/09/18 05:52 Intake and Output: 03/09/18 03/09/18 06:59 18:59 Intake Total 500 Output Total 700 Balance -200 - Medications Medications: Current Medications Aspirin (Aspirin Chewable) 81 mg PO DAILY [facility] Last Admin: 03/08/18 10:35 Dose: 81 mg Carvedilol (Coreg) 6.25 mg PO BID [facility] Last Admin: 03/08/18 17:59 Dose: 6.25 mg Dextrose (Dextrose 50% Inj) 50 ml IVP ONCE PRN PRN Reason: Hypoglycemia Heparin Sodium/Sodium Chloride (Heparin 45129 Units/250ml 1/2 Normal Saline) 25,000 units in 250 mls @ 6.532 mls/hr IV .Q24H [facility]; Protocol Last Admin: 03/09/18 00:50 Dose: 12 units/kg/hr, 6.532 mls/hr Piperacillin Sod/Tazobactam Sod (Zosyn 3.375 In Ns 100ml) 100 mls @ 25 mls/hr IVPB Q8 [facility] Last Admin: 03/09/18 05:02 Dose: 25 mls/hr Insulin Detemir (Levemir) 12 unit SC HS [facility] Last Admin: 03/08/18 21:56 Dose: 12 units Insulin Human Lispro (Humalog Low) 0 units SC ACHS [facility]; Protocol Last Admin: 03/08/18 22:10 Dose: Not Given Insulin Human Lispro (Humalog) 6 units SC AC [facility] Last Admin: 03/08/18 17:58 Dose: 6 u Levothyroxine Sodium (Synthroid) 100 mcg PO 0600 [facility] Last Admin: 03/09/18 05:02 Dose: 100 mcg Lisinopril (Zestril) 2.5 mg PO DAILY [facility] Last Admin: 03/08/18 10:35 Dose: 2.5 mg Pantoprazole Sodium (Protonix Ec Tab) 40 mg PO 0600 [facility] Last Admin: 03/09/18 05:02 Dose: 40 mg Polyethylene Glycol (Miralax) 17 gm PO DAILY [facility] Last Admin: 03/08/18 10:34 Dose: 17 gm - Labs Labs: 03/09/18 06:00 03/09/18 06:00 PT 10.6 SECONDS (9.4-12.5) 03/05/18 09:40 INR 0.92 03/05/18 09:40 APTT 63.6 Seconds (25.1-36.5) H 03/09/18 06:00 Assessment and Plan - Assessment and Plan (Free Text) Assessment: NSTEMI DKA UTI CAD/CABG twice/Mod. LVD and mod MR and TR on echo Breast ca. with L. mastectomy HBP HLD Hypothyroidism Depression DNR/DNI Sternal wire protrusion Plan: AB, as per ID As per GI, Endo and Medical Team Heparin drip ASA, Coreg Continue 2.5 daily. Titrate OOB to chair as ravi. Monitor: labs, PTTS, I/O, BSs, sats., etc.
[2018-03-09] MEDS: Insulin Lispro 1 UNITS/0.01 ML SC SCH ×3 (08:39→18:04)
[2018-03-09] MEDS: Insulin Lispro (humaLOG) LOW Coverage SC SCH ×4 (08:40→21:39)
[2018-03-09] MEDS: POLYETHYLENE GLYCOL 3350 17 GM/Dose PACKET PO SCH (10:28)
--- NOTE | 2018-03-09 10:35 | CP.PCM.APN ---
Subjective - Subjective Subjective: pt seenand examined in rm 272.1 , pt offers no complaints states she never felt ill despite curent status Review of Systems - Review of Systems All systems: reviewed and no additional remarkable complaints except Objective - Vital Signs/Intake and Output Vital Signs (last 24 hours): Temp Pulse Resp BP Pulse Ox 97.9 F 73 19 135/67 98 03/09/18 05:52 03/09/18 05:52 03/09/18 05:52 03/09/18 05:52 03/09/18 05:52 Intake and Output: 03/09/18 03/09/18 06:59 18:59 Intake Total 500 Output Total 700 Balance -200 - Medications Medications: Current Medications Aspirin (Aspirin Chewable) 81 mg PO DAILY [facility] Last Admin: 03/08/18 10:35 Dose: 81 mg Carvedilol (Coreg) 6.25 mg PO BID [facility] Last Admin: 03/08/18 17:59 Dose: 6.25 mg Dextrose (Dextrose 50% Inj) 50 ml IVP ONCE PRN PRN Reason: Hypoglycemia Heparin Sodium/Sodium Chloride (Heparin 63918 Units/250ml 1/2 Normal Saline) 25,000 units in 250 mls @ 6.532 mls/hr IV .Q24H [facility]; Protocol Last Admin: 03/09/18 00:50 Dose: 12 units/kg/hr, 6.532 mls/hr Piperacillin Sod/Tazobactam Sod (Zosyn 3.375 In Ns 100ml) 100 mls @ 25 mls/hr IVPB Q8 [facility] Last Admin: 03/09/18 05:02 Dose: 25 mls/hr Insulin Detemir (Levemir) 12 unit SC HS [facility] Last Admin: 03/08/18 21:56 Dose: 12 units Insulin Human Lispro (Humalog Low) 0 units SC ACHS [facility]; Protocol Last Admin: 03/09/18 08:40 Dose: Not Given Insulin Human Lispro (Humalog) 6 units SC AC [facility] Last Admin: 03/09/18 08:39 Dose: 6 units Levothyroxine Sodium (Synthroid) 100 mcg PO 0600 [facility] Last Admin: 03/09/18 05:02 Dose: 100 mcg Lisinopril (Zestril) 2.5 mg PO DAILY [facility] Last Admin: 03/08/18 10:35 Dose: 2.5 mg Pantoprazole Sodium (Protonix Ec Tab) 40 mg PO 0600 [facility] Last Admin: 03/09/18 05:02 Dose: 40 mg Polyethylene Glycol (Miralax) 17 gm PO DAILY [facility] Last Admin: 03/08/18 10:34 Dose: 17 gm - Labs Labs: 03/09/18 06:00 03/09/18 06:00 PT 10.6 SECONDS (9.4-12.5) 03/05/18 09:40 INR 0.92 03/05/18 09:40 APTT 63.6 Seconds (25.1-36.5) H 03/09/18 06:00 - Constitutional Appears: Non-toxic - Head Exam Head Exam: NORMAL INSPECTION, NORMOCEPHALIC - ENT Exam ENT Exam: Mucous Membranes Moist - Neck Exam Neck Exam: Normal Inspection - Cardiovascular Exam Cardiovascular Exam: +S1, +S2 - GI/Abdominal Exam GI & Abdominal Exam: Soft, Normal Bowel Sounds - Extremities Exam Extremities Exam: Normal Capillary Refill - Neurological Exam Neurological Exam: Alert, Awake Neuro motor strength exam: Left Upper Extremity: 4, Right Upper Extremity: 4, Left Lower Extremity: 4, Right Lower Extremity: 4 - Psychiatric Exam Psychiatric exam: Normal Affect, Normal Mood - Skin Skin Exam: Dry, Intact Assessment and Plan - Assessment and Plan (Free Text) Plan: ITS Impressions Chest X-Ray 03/05/18 09:33 IMPRESSION: No active disease. No significant interval change compared to the prior examination(s). Head CT 03/05/18 09:34 IMPRESSION: No evidence of acute intracranial hemorrhage mass effect or midline shift. Moderate atrophy and [id number]-[id number] chronic microvascular white matter ischemic changes. Abdomen Ultrasound 03/06/18 15:29 IMPRESSION: Interval grossly abnormal appearing gallbladder with mural thickening and gross complicated pericholecystic fluid/phlegmon potentially reflecting abscess. No sonographic evidence of biliary tree dilatation however acalculous cholecystitis is in question and further clinical correlation is recommended. [id number] abdominal ascites. Pancreas completely obscured by overlying bowel gas. Abdomen/Pelvis CT 03/08/18 10:56 IMPRESSION: No evidence of right upper quadrant abscess. Large bilateral pleural effusions with compressive atelectasis. Pelvic ascites with anasarca. Colonic diverticulosis. Leiomyomatous uterus. 82 yr old female with pmh sig for dm, htn, hld brest ca s/p lumpectomy, cabg x2 who presented to the Er with ams/ confusion per daughter now being transferred to telemetry after ICU mgmt forr NSTEMI, DKA, JUAN and lactid acidosis as well as E coli UTI pt whose initial glucose levels were at 936 , troponins 8.10 now stabliizing 6.94 now on IV heparin drip, now s/p iV insulin drip with insulin coveragesbeing adjusted by Dr Moon as noted cardiology notes rev'd - medical mgmt on telemetry , trop trending down, medival mgmt on iV Heparin Endocrine notes rev'd re DKA - ivf, monitor anion gap, trend blood dugar levels, insulin regimen sternotomy wound - wound culture noted as above , on iv antibiotics E coli UTI abn LFT-? ischemic hepatopathy : ct abd /pelvis ordered to rule out abscess - shows no abscess but has large bilaeral pleural effusions and pelvic ascites with anasarca repeat stool for occult blood pending, counts stable on IV heparin Will follow clinical course and discuss with PMD re: ? IR for Thoracentesis of large effusions? vs. diuresis per discussion with [primary team - iV duiretcis per p.t - tcu would be appropraite disposition Plan discussed in IDT rounds Will follow BPCI/TIC - BPCIA/TIC Educated pt/family on BPCIA/CIR/Med to Bed Programs: Yes Flyers given, including [facility] Beneficiary letter: Yes Pt/family verbalized understanding & agreed to program: Yes
--- NOTE | 2018-03-09 11:30 | CP.PCM.PN ---
<Fahad Troncoso - Last Filed: 03/09/18 11:31> Subjective - Date & Time of Evaluation Date of Evaluation: 03/09/18 Time of Evaluation: 08:15 - Subjective Subjective: PGY6 GI Fellow Progress Note Patient seen and examined bedside this morning. The patient does not have any complaints at this time. Continues to echo sentiments that she was never ill despite clinical condition on arrival. 12 system ROS performed and negative except where stated Objective - Vital Signs/Intake and Output Vital Signs (last 24 hours): Temp Pulse Resp BP Pulse Ox 97.9 F 77 19 137/70 98 03/09/18 05:52 03/09/18 10:28 03/09/18 05:52 03/09/18 10:28 03/09/18 05:52 Intake and Output: 03/09/18 03/09/18 06:59 18:59 Intake Total 500 Output Total 700 Balance -200 - Medications Medications: Current Medications Aspirin (Aspirin Chewable) 81 mg PO DAILY [facility] Last Admin: 03/09/18 10:27 Dose: 81 mg Carvedilol (Coreg) 6.25 mg PO BID [facility] Last Admin: 03/09/18 10:27 Dose: 6.25 mg Dextrose (Dextrose 50% Inj) 50 ml IVP ONCE PRN PRN Reason: Hypoglycemia Furosemide (Lasix) 20 mg IVP Q12 [facility] Heparin Sodium/Sodium Chloride (Heparin 39395 Units/250ml 1/2 Normal Saline) 25,000 units in 250 mls @ 6.532 mls/hr IV .Q24H [facility]; Protocol Last Admin: 03/09/18 00:50 Dose: 12 units/kg/hr, 6.532 mls/hr Piperacillin Sod/Tazobactam Sod (Zosyn 3.375 In Ns 100ml) 100 mls @ 25 mls/hr IVPB Q8 [facility] Last Admin: 03/09/18 05:02 Dose: 25 mls/hr Insulin Detemir (Levemir) 12 unit SC HS [facility] Last Admin: 03/08/18 21:56 Dose: 12 units Insulin Human Lispro (Humalog Low) 0 units SC ACHS [facility]; Protocol Last Admin: 03/09/18 08:40 Dose: Not Given Insulin Human Lispro (Humalog) 6 units SC AC [facility] Last Admin: 03/09/18 08:39 Dose: 6 units Levothyroxine Sodium (Synthroid) 100 mcg PO 0600 [facility] Last Admin: 03/09/18 05:02 Dose: 100 mcg Lisinopril (Zestril) 2.5 mg PO DAILY [facility] Last Admin: 03/09/18 10:28 Dose: 2.5 mg Pantoprazole Sodium (Protonix Ec Tab) 40 mg PO 0600 [facility] Last Admin: 03/09/18 05:02 Dose: 40 mg Polyethylene Glycol (Miralax) 17 gm PO DAILY [facility] Last Admin: 03/09/18 10:28 Dose: 17 gm - Labs Labs: 03/09/18 06:00 03/09/18 06:00 PT 10.6 SECONDS (9.4-12.5) 03/05/18 09:40 INR 0.92 03/05/18 09:40 APTT 63.6 Seconds (25.1-36.5) H 03/09/18 06:00 - Constitutional Appears: Non-toxic, No Acute Distress - Eye Exam Eye Exam: EOMI, PERRL - ENT Exam ENT Exam: Mucous Membranes Moist - Respiratory Exam Respiratory Exam: Rales. absent: Clear to Ausculation Bilateral, Rhonchi, Wheezes - Cardiovascular Exam Cardiovascular Exam: RRR, +S1, +S2 - GI/Abdominal Exam GI & Abdominal Exam: Soft, Normal Bowel Sounds. absent: Distended, Firm, Guarding, Rigid, Tenderness, Organomegaly - Extremities Exam Extremities Exam: Normal Inspection. absent: Pedal Edema - Neurological Exam Neurological Exam: Alert, Awake, Oriented x3 - Psychiatric Exam Psychiatric exam: Normal Affect, Normal Mood - Skin Skin Exam: Dry, Warm Assessment and Plan - Assessment and Plan (Free Text) Assessment: Patient is an 82yo female with PMHx significant for CAD s/p CABG, DM, HTN, breast cancer s/p lumpectomy in remission who presented with altered mental status -AMS -DKA -ACS/NSTEMI -Elevated LFTs, hepatocellular pattern -Pericholecystic abscess -FOBT+ Plan: -LFT abnormality suspected 2/2 ischemic hepatopathy - all downtrending -U/S noted however CT scan without evidence of phlegmon or fluid collection; pleural effusions are noted and may have been mistaken on U/S -Viral hepatitis profile negative -No overt GI bleeding during admission -NSTEMI management per primary team - remains on heparin gtt -No further GI recommendations at this time <Jonathon,Kovil V - Last Filed: 03/09/18 15:45> Objective - Vital Signs/Intake and Output Vital Signs (last 24 hours): Temp Pulse Resp BP Pulse Ox 98.6 F 73 18 141/61 98 03/09/18 12:00 03/09/18 14:00 03/09/18 12:00 03/09/18 12:00 03/09/18 05:52 Intake and Output: 03/09/18 03/09/18 06:59 18:59 Intake Total 500 Output Total 700 Balance -200 - Medications Medications: Current Medications Aspirin (Aspirin Chewable) 81 mg PO DAILY [facility] Last Admin: 03/09/18 10:27 Dose: 81 mg Carvedilol (Coreg) 6.25 mg PO BID [facility] Last Admin: 03/09/18 10:27 Dose: 6.25 mg Dextrose (Dextrose 50% Inj) 50 ml IVP ONCE PRN PRN Reason: Hypoglycemia Furosemide (Lasix) 20 mg IVP Q12 [facility] Last Admin: 03/09/18 11:49 Dose: 20 mg Heparin Sodium (Porcine) (Heparin) 5,000 units SC Q12 [facility]; Protocol Piperacillin Sod/Tazobactam Sod (Zosyn 3.375 In Ns 100ml) 100 mls @ 25 mls/hr IVPB Q8 [facility] Last Admin: 03/09/18 14:11 Dose: 25 mls/hr Insulin Detemir (Levemir) 6 unit SC HS [facility] Insulin Human Lispro (Humalog Low) 0 units SC ACHS [facility]; Protocol Last Admin: 03/09/18 11:48 Dose: Not Given Insulin Human Lispro (Humalog) 3 units SC AC [facility] Levothyroxine Sodium (Synthroid) 100 mcg PO 0600 [facility] Last Admin: 03/09/18 05:02 Dose: 100 mcg Lisinopril (Zestril) 2.5 mg PO DAILY [facility] Last Admin: 03/09/18 10:28 Dose: 2.5 mg Pantoprazole Sodium (Protonix Ec Tab) 40 mg PO 0600 [facility] Last Admin: 03/09/18 05:02 Dose: 40 mg Polyethylene Glycol (Miralax) 17 gm PO DAILY [facility] Last Admin: 03/09/18 10:28 Dose: 17 gm - Labs Labs: 03/09/18 06:00 03/09/18 06:00 PT 10.6 SECONDS (9.4-12.5) 03/05/18 09:40 INR 0.92 03/05/18 09:40 APTT 63.6 Seconds (25.1-36.5) H 03/09/18 06:00 Attending/Attestation - Attestation I have personally seen and examined this patient.: Yes I have fully participated in the care of the patient.: Yes I have reviewed all pertinent clinical information, including history, physical exam and plan: Yes Notes (Text): This is an addendum to GI progress report dictated by the GI Fellow. The patient was seen and examined earlier. Medical records, lab studies, imagings were reviewed. Last 24 hours events reviewed. Agreed with the above treatment plan as outlined in GI Fellow 's notes with the addition of the following Increased LFT probably secondary to hepatic congestion. CT Sonogram images reviewed. Follow up LFT. On Heparin. Follow up hemoglobin. No melena or bright red blood per rectum. Last hemoglobin 10.4. 03/09/18 15:43
--- NOTE | 2018-03-09 12:09 | CP.PCM.PN ---
<Nancy Gudino - Last Filed: 03/09/18 13:05> Subjective - Date & Time of Evaluation Date of Evaluation: 03/09/18 Time of Evaluation: 09:10 - Subjective Subjective: Internal medicine progress note for Dr. Maurice Shannon Patient seen and examined this am at bedside. She states she is feeling well and has no complaints. She otherwise denies DINH, F/C, CP, SOB, dyspnea on exertion, abdominal pain, n/v and extremity pain and weakness. She was able to ambulate without difficulty with PT in her room. Objective - Vital Signs/Intake and Output Vital Signs (last 24 hours): Temp Pulse Resp BP Pulse Ox 97.9 F 77 19 141/61 98 03/09/18 05:52 03/09/18 10:28 03/09/18 05:52 03/09/18 11:49 03/09/18 05:52 Intake and Output: 03/09/18 03/09/18 06:59 18:59 Intake Total 500 Output Total 700 Balance -200 - Medications Medications: Current Medications Aspirin (Aspirin Chewable) 81 mg PO DAILY [facility] Last Admin: 03/09/18 10:27 Dose: 81 mg Carvedilol (Coreg) 6.25 mg PO BID [facility] Last Admin: 03/09/18 10:27 Dose: 6.25 mg Dextrose (Dextrose 50% Inj) 50 ml IVP ONCE PRN PRN Reason: Hypoglycemia Furosemide (Lasix) 20 mg IVP Q12 [facility] Last Admin: 03/09/18 11:49 Dose: 20 mg Heparin Sodium/Sodium Chloride (Heparin 78959 Units/250ml 1/2 Normal Saline) 25,000 units in 250 mls @ 6.532 mls/hr IV .Q24H [facility]; Protocol Last Admin: 03/09/18 00:50 Dose: 12 units/kg/hr, 6.532 mls/hr Piperacillin Sod/Tazobactam Sod (Zosyn 3.375 In Ns 100ml) 100 mls @ 25 mls/hr IVPB Q8 [facility] Last Admin: 03/09/18 05:02 Dose: 25 mls/hr Insulin Detemir (Levemir) 12 unit SC HS [facility] Last Admin: 03/08/18 21:56 Dose: 12 units Insulin Human Lispro (Humalog Low) 0 units SC ACHS [facility]; Protocol Last Admin: 03/09/18 11:48 Dose: Not Given Insulin Human Lispro (Humalog) 6 units SC AC [facility] Last Admin: 03/09/18 11:48 Dose: Not Given Levothyroxine Sodium (Synthroid) 100 mcg PO 0600 [facility] Last Admin: 03/09/18 05:02 Dose: 100 mcg Lisinopril (Zestril) 2.5 mg PO DAILY [facility] Last Admin: 03/09/18 10:28 Dose: 2.5 mg Pantoprazole Sodium (Protonix Ec Tab) 40 mg PO 0600 [facility] Last Admin: 03/09/18 05:02 Dose: 40 mg Polyethylene Glycol (Miralax) 17 gm PO DAILY [facility] Last Admin: 03/09/18 10:28 Dose: 17 gm - Labs Labs: 03/09/18 06:00 03/09/18 06:00 PT 10.6 SECONDS (9.4-12.5) 03/05/18 09:40 INR 0.92 03/05/18 09:40 APTT 63.6 Seconds (25.1-36.5) H 03/09/18 06:00 - Constitutional Appears: Well, Non-toxic, No Acute Distress - Head Exam Head Exam: ATRAUMATIC, NORMOCEPHALIC - Eye Exam Eye Exam: EOMI - ENT Exam ENT Exam: Mucous Membranes Moist - Respiratory Exam Respiratory Exam: Decreased Breath Sounds (lower lobes bilaterally), Wheezes (expiratory upper lobes bilaterally) - Cardiovascular Exam Cardiovascular Exam: REGULAR RHYTHM. absent: Tachycardia - GI/Abdominal Exam GI & Abdominal Exam: Distended (mild), Soft. absent: Guarding, Tenderness - Extremities Exam Extremities Exam: Pedal Edema (trace). absent: Calf Tenderness, Tenderness - Neurological Exam Neurological Exam: Alert, Awake. absent: Oriented x3 (oriented to self and place not time) - Psychiatric Exam Psychiatric exam: Normal Affect, Normal Mood - Skin Skin Exam: Dry, Intact, Normal Color, Warm Additional comments: optifoam in place over midline sternal area Assessment and Plan - Assessment and Plan (Free Text) Assessment: 82 y old female, PMhx HTN, HLD, CAD s/p CABG x 2, DM2, hypothyroidism, and breast ca s/p lumpectomy of L breast in remission, who presented with DKA, NSTEMI, new T wave inversions and RBBB on EKG on admission. Currently admitted to [facility]. Plan: AMS 2/2 DKA vs infection, possible UTI - improving - Insulin drip d/c'd, anion gap closed - Fingersticks achs - Levemir 12 U sc hs, Humalog 6 U achs, titrate as appropriate - HHD - Dr. Moon consulted (Endocrinology), recs appreciated NSTEMI - Troponin trend (2.07 => 8.88 => 32.6 => 68.9 => 25.9 => 12.8 => 8.1 => 6.49 since admission) - Pt denying chest pain at this time - Hx FOBT positive on admission, per recs of cardio, will d/c heparin and contin ue with ASA only no plavix. Not a candidate for coronary intervention or angiography at this time as per Cardiology. - Lisinopril 2.5 mg daily, as per Cardio - Trend EKGs - Cardiology consulted, Dr. Gazron, recs appreciated Bilateral pleural effusions: - will give lasix 20 BID - repeat CR for reevaluation - denies SOB, will continue to monitor LE Edema - no tenderness or skin changes - LE US to r/o DVT UTI - UA + for LE, WBC and bacteria - Urine cx positive for E. coli, resistant to ampicillin, otherwise schmidt- sensitive - Blood cxs x 2 no growth for 3 days - C/w zosyn 2.25 g q 12 h; ID consulted, recs appreciated - Afebrile, denies abdominal pain - WBC 9.9 this am, trending down Transaminitis - Likely 2/2 demand ischemia, will continue to monitor - AST 109, ALT 171, ALP 84 this am, trending down - Viral hepatitis profile neg - Pt denying abd pain at this time -GI consulted (Dr. Holt), recs appreciated; recommended IV Protonix bid, active GI bleed unlikely in setting of positive FOBT on admission and improving Hgb -Abd U/s: interval grossly abnormal appearing gallbladder with mural thickening and gross complicated pericholecystic fluid/phlegmon potentially reflecting abscess. No sonographic evidence of biliary tree dilation however acalculous cholecystitis is in question and further clinical correlation is recommended. [id number] abdominal ascites. Pancreas completely obscured by overlying bowel gas. -Abd Pelvis CT showing bilateral pleural effusions, normal GB, no signs of abscess, mild to moderate pelvic ascites Wound at superior sternotomy border - Small clean dry wound with surrounding erythema at superior border of sternotomy with sternotomy wire protruding - Nontender, no purulence, no discharge - Wound culture 03/05, growing Corynebacterium species Microcytic Anemia - Positive Guaiac in ED - Stool occult blood ordered - Pt denies gross blood in stool - No active bleeding at this time - Plavix held as per Cardio recs; currently on ASA only Heparin drip d/c'd today per cardio - Last colonoscopy age 72, pt reports no abnormalities - Will continue to reassess; most recent H/H today 10.4/ 30.9 DVT ppx: SCD GI ppx: Protonix bid Diet: HHD Currently DNR/DNI status Pt seen, examined with, and plan discussed with Dr. Shannon, attending physician. Nancy Gudino, PGY 1 <Katarina Shannon R - Last Filed: 03/09/18 14:03> Objective - Vital Signs/Intake and Output Vital Signs (last 24 hours): Temp Pulse Resp BP Pulse Ox 98.6 F 77 18 141/61 98 03/09/18 12:00 03/09/18 10:28 03/09/18 12:00 03/09/18 12:00 03/09/18 05:52 Intake and Output: 03/09/18 03/09/18 06:59 18:59 Intake Total 500 Output Total 700 Balance -200 - Medications Medications: Current Medications Aspirin (Aspirin Chewable) 81 mg PO DAILY [facility] Last Admin: 03/09/18 10:27 Dose: 81 mg Carvedilol (Coreg) 6.25 mg PO BID [facility] Last Admin: 03/09/18 10:27 Dose: 6.25 mg Dextrose (Dextrose 50% Inj) 50 ml IVP ONCE PRN PRN Reason: Hypoglycemia Furosemide (Lasix) 20 mg IVP Q12 [facility] Last Admin: 03/09/18 11:49 Dose: 20 mg Piperacillin Sod/Tazobactam Sod (Zosyn 3.375 In Ns 100ml) 100 mls @ 25 mls/hr IVPB Q8 [facility] Last Admin: 03/09/18 05:02 Dose: 25 mls/hr Insulin Detemir (Levemir) 6 unit SC [facility] Insulin Human Lispro (Humalog Low) 0 units SC ACHS [facility]; Protocol Last Admin: 03/09/18 11:48 Dose: Not Given Insulin Human Lispro (Humalog) 3 units SC AC [facility] Levothyroxine Sodium (Synthroid) 100 mcg PO 0600 [facility] Last Admin: 03/09/18 05:02 Dose: 100 mcg Lisinopril (Zestril) 2.5 mg PO DAILY [facility] Last Admin: 03/09/18 10:28 Dose: 2.5 mg Pantoprazole Sodium (Protonix Ec Tab) 40 mg PO 0600 [facility] Last Admin: 03/09/18 05:02 Dose: 40 mg Polyethylene Glycol (Miralax) 17 gm PO DAILY [facility] Last Admin: 03/09/18 10:28 Dose: 17 gm - Labs Labs: 03/09/18 06:00 03/09/18 06:00 PT 10.6 SECONDS (9.4-12.5) 03/05/18 09:40 INR 0.92 03/05/18 09:40 APTT 63.6 Seconds (25.1-36.5) H 03/09/18 06:00 Attending/Attestation - Attestation I have personally seen and examined this patient.: Yes I have fully participated in the care of the patient.: Yes I have reviewed all pertinent clinical information, including history, physical exam and plan: Yes Notes (Text): Patient seen and examined by me with resident at 10:30 AM on 03/09/18. Case including HPI, physical exam, and assessment and plan discussed with resident. Agree with above with following additions/corrections. Patient is an 82-year-old female past medical history significant for hypertension, hyperlipidemia, type 2 diabetes, breast cancer status post lumpectomy, and coronary artery disease status post CABG that presented to the emergency room with confusion and altered mental status. Patient is oriented x 2. Not oriented to time. Patient believes it is Thanksgiving time. Patient states that she is feeling ok. 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 No chest pain or palpitations. No headaches or dizziness. No fevers or chills. No nausea, vomiting, or abdominal pain. No dysuria. Physical exam: General: Awake and alert lying in bed in no acute distress HEENT: Normocephalic, atraumatic. Extraocular muscles intact, pupils equal and reactive, no scleral icterus. Oropharynx is pink and moist. Neck is supple. Cardiovascular: Regular rhythm. Normal S1 and S2. Positive systolic murmur. No rubs or gallops appreciated Pulmonary: Normal respiratory effort. Decreased breath sounds bilaterally. No rhonchi, rales, or wheezing appreciated. Gastrointestinal: Soft, nondistended. Nontender. Positive bowel sounds all 4 quadrants. No guarding. Musculoskeletal: Moves all extremities. Trace lower extremity edema appreciated. No calf tenderness. Central nervous system: AAO x 2. Dermatologic: Skin warm and dry.Anterior chest wound with sternotomy wire dressing clean, dry, and intact. No signs of infection (has been there for 2 years per patient). Assessment and plan:Patient is an 82-year-old female past medical history significant for hypertension, hyperlipidemia, type 2 diabetes, breast cancer status post lumpectomy, and coronary artery disease status post CABG that presented to the emergency room with confusion and altered mental status. 1. Bilateral pleural effusions. Likey secondary to acute systolic CHF likely secondary to NSTEMI. Start on lasix 20mg IV q12hrs. Monitor ins and outs. Will need repeat chest xray for improvement. Encourage out of bed to chair. 2d echo showed moderately reduced LV function, EF 43%. Cardiology following, recommendations appreciated. 2. Toxic metabolic encephalopathy. May be at [place] now. AAO x 2. Likely secondary to multifactorial issues including UTI, DKA, NSTEMI. Continue to treat underlying causes. Continue supportive care. Head CT per radiologist showed no evidence of acute intracranial hemorrhage or mass effect or midline shift, moderate atrophy and mild to moderate chronic microvascular white matter ischemic changes. 3. DKA. Resolved. Type 1 insulin dependent DM. Endocrinology following, recommendations appreciated. Continue insulin per endocrinology. Hypoglycemia improved. Continue to monitor accuchecks. HgbA1C is 9.7. 4. NSTEMI with hemodynamic instability. Hemodynamic instability resolved. Hypotension resolved. Cardiology following, recommendations appreciated. Heparin drip to be stopped per cardiology Dr. Sorto. Troponins downtrended. Continue with Coreg and Lisinopril. Continue ASA. Patient not a candidate for current co ronary intervention or angiography. 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 5. UTI. Urine culture positive for Escherichia coli. Patient on Zosyn. Patient afebrile. Leukocytosis resolved. 6. Transaminitis. Likely ischemic hepatitis secondary to hypotension. LFTs downtrending. GI following, recommendations appreciated. Abdominal ultrasound per radiologist showed interval grossly abnormal appearing gallbladder with mural thickening in [place] complicated pericholecystic fluid/phlegmon potentially reflecting abscess, no sonographic evidence of biliary tree dilatation however acalculous cholecystitis is in question, mild to moderate abdominal ascites, pancreas completely obscured by overlying bowel gas. CT a bdomen and pelvis per radiologist showed no evidence of right upper quadrant abscess, large bilateral pleural effusions with compressive atelectasis, pelvic ascites with anasarca, colonic diverticulosis, leiomyomatous uterus. 7. Hypokalemia. Resolved. Continue to monitor. 8. Anemia. FOBT positive. H&H stable. GI following, recommendations appreciated. Continue Protonix. Continue to monitor CBC 9. Hypothyroidism. Continue Synthroid 10. Sternotomy wound. Continue local wound care. Per patient, has been there for about 2 years. Wound culture positive for corynebacterium. 11. GI/DVT prophylaxis. Protonix/Heparin 12. Advanced directive. Patient is a DNR/DNI. Case was discussed in detail with the patient regarding current diagnosis and treatment plan. All questions answered.
[2018-03-09] MEDS ORDERED: Insulin Detemir 100 units/ml Vial (Levemir) SC SCH (13:10)
--- NOTE | 2018-03-09 14:34 | CP.PCM.PN ---
Subjective - Date & Time of Evaluation Date of Evaluation: 03/09/18 Time of Evaluation: 14:00 - Subjective Subjective: Infectious Disease Consultation: March 09, 2018 82 yo female found unconscious by her daughter at patient's home. Brought to [facility] for medical care and found to have Lactic acid of 7.6 on admission and proc alcitonin of 4.12. The patient is currently awake and alert. Cultures of the urine with E. coli and cultures of the chest with Corynebacterium. The patient has received Zosyn IV and Vancomycin IV for antibiotic treatment. Patient making no complaints at this time. She appears unaware of how severe her medical condition was on presentation to [facility]. Objective - Vital Signs/Intake and Output Vital Signs (last 24 hours): Temp Pulse Resp BP Pulse Ox 98.6 F 77 18 141/61 98 03/09/18 12:00 03/09/18 10:28 03/09/18 12:00 03/09/18 12:00 03/09/18 05:52 Intake and Output: 03/09/18 03/09/18 06:59 18:59 Intake Total 500 Output Total 700 Balance -200 - Medications Medications: Current Medications Aspirin (Aspirin Chewable) 81 mg PO DAILY [facility] Last Admin: 03/09/18 10:27 Dose: 81 mg Carvedilol (Coreg) 6.25 mg PO BID [facility] Last Admin: 03/09/18 10:27 Dose: 6.25 mg Dextrose (Dextrose 50% Inj) 50 ml IVP ONCE PRN PRN Reason: Hypoglycemia Furosemide (Lasix) 20 mg IVP Q12 [facility] Last Admin: 03/09/18 11:49 Dose: 20 mg Piperacillin Sod/Tazobactam Sod (Zosyn 3.375 In Ns 100ml) 100 mls @ 25 mls/hr IVPB Q8 [facility] Last Admin: 03/09/18 05:02 Dose: 25 mls/hr Insulin Detemir (Levemir) 6 unit SC HS [facility] Insulin Human Lispro (Humalog Low) 0 units SC ACHS [facility]; Protocol Last Admin: 03/09/18 11:48 Dose: Not Given Insulin Human Lispro (Humalog) 3 units SC AC [facility] Levothyroxine Sodium (Synthroid) 100 mcg PO 0600 [facility] Last Admin: 03/09/18 05:02 Dose: 100 mcg Lisinopril (Zestril) 2.5 mg PO DAILY [facility] Last Admin: 03/09/18 10:28 Dose: 2.5 mg Pantoprazole Sodium (Protonix Ec Tab) 40 mg PO 0600 [facility] Last Admin: 03/09/18 05:02 Dose: 40 mg Polyethylene Glycol (Miralax) 17 gm PO DAILY [facility] Last Admin: 03/09/18 10:28 Dose: 17 gm - Labs Labs: 03/09/18 06:00 03/09/18 06:00 PT 10.6 SECONDS (9.4-12.5) 03/05/18 09:40 INR 0.92 03/05/18 09:40 APTT 63.6 Seconds (25.1-36.5) H 03/09/18 06:00 - Constitutional Appears: Non-toxic, No Acute Distress - Head Exam Head Exam: ATRAUMATIC, NORMOCEPHALIC - Eye Exam Eye Exam: EOMI, PERRL Pupil Exam: NORMAL ACCOMODATION, PERRL - ENT Exam ENT Exam: Mucous Membranes Moist, Normal External Ear Exam, TM's Normal Bilaterally - Respiratory Exam Respiratory Exam: Clear to Ausculation Bilateral, NORMAL BREATHING PATTERN. absent: Rales, Rhonchi, Wheezes - Cardiovascular Exam Cardiovascular Exam: REGULAR RHYTHM, RRR, +S1, +S2 - GI/Abdominal Exam GI & Abdominal Exam: Soft, Normal Bowel Sounds. absent: Distended, Tenderness - Extremities Exam Extremities Exam: Full ROM, Normal Inspection - Neurological Exam Neurological Exam: Alert, Awake, CN II-XII Intact, Oriented x3 - Psychiatric Exam Psychiatric exam: Normal Affect, Normal Mood - Skin Skin Exam: Intact, Normal Color Assessment and Plan - Assessment and Plan (Free Text) Assessment: 82 y old female, PMhx HTN, HLD, CAD s/p CABG x 2, DM2, hypothyroidism, and breast ca s/p lumpectomy of L breast in remission, who presented with DKA, NSTEMI, new T wave inversions and RBBB on EKG on admission. The patient also had UTI with E. coli. Started on Zosyn for antibiotic coverage. Blood cultures negative for [address] showing ascites but no abscess. Continue on Zosyn IV for UTI with E. coli and Corynebacterium. Consider 7 days of treatment. Supportive care. Thank you for allowing me to participate in the care of the patient, we will follow with you.
--- NOTE | 2018-03-09 16:25 | US ---
HISTORY: Leg pain and swelling. Evaluate for DVT PHYSICIAN(S): Yomi Spain MD. TECHNIQUE: Duplex sonography and color-flow Doppler with graded compression were used to evaluate the deep venous systems of both lower extremities. FINDINGS: The visualized deep venous systems of both lower extremities are sonographically normal and compressible. Normal wave forms and augmentation are seen. There is no sonographic evidence for deep venous thrombosis in the visualized segments of both lower extremities. IMPRESSION: No sonographic evidence for deep venous thrombosis in the visualized segments of both lower extremities.
--- NOTE | 2018-03-09 19:32 | PN ---
DATE: 03/09/2018 ENDO FOLLOW UP NOTE LOCATION: Room 272. SUBJECTIVE: This is an 82-year-old female with recent uncontrolled type 2 insulin-requiring diabetes presenting here with diabetic ketoacidosis and dehydration and has since then improved clinically and metabolically as noted thereof. Her oral intake, however, remains quite variable with suboptimal portions as per the nursing staff with supervening episodic bouts of hypoglycemic episodes as noted overnight and today. Her glucose levels have ranged from 69 to 77 and 106 mg/dL. It was 89 at bedtime last night. LABORATORY DATA: Her chemistry showed a BUN of 10, sodium 133, potassium 3.9, chloride 108, CO2 22, glucose 82 and creatinine 0.8. ASSESSMENT AND PLAN: So at this time, we will modify once again her basal and bolus insulin regimen and lower the Humalog to 3 units subcutaneously t.i.d. before meals as ordered. We will also lower the basal insulin to Levemir given as 6 units subcutaneously at bedtime daily as given. We will continue the low-dose correction scale using Humalog insulin to obviate hypoglycemia and detailed orders have been given. We will titrate incrementally as indicated to optimize metabolic control. We will follow and advise accordingly. Myrtle Moon MD
[2018-03-10] MEDS: Pantoprazole 40 mg EC Tab PO SCH (05:30)
[2018-03-10] MEDS: Levothyroxine 100 MCG TAB PO SCH (05:30)
[2018-03-10] MEDS: Piperacillin/Tazobact 3.375 gm 100 ML IVPB SCH ×2 (05:30→14:46)
[2018-03-10 06:24] VITALS: O2SAT 95
[2018-03-10 07:52] LABS: ALBUMIN 2.9 g/dL (3.0-4.8); ALT/SGPT 127 U/L (7-56); AST/SGOT 74 U/L (14-36); BLOOD UREA NITROGEN 9 mg/dL (7-21); CALCIUM 8.4 mg/dL (8.4-10.5); GFR NON-AFRICAN AMERICAN > 60
[2018-03-10] MEDS: Insulin Lispro (humaLOG) LOW Coverage SC SCH ×3 (08:30→16:50)
[2018-03-10] MEDS: Insulin Lispro 1 UNITS/0.01 ML SC SCH ×3 (08:30→16:53)
[2018-03-10 09:13] LABS: BASO # 0.02 K/mm3 (0.0-2.0); BASO % 0.3 % (0.0-3.0); EOS # 0.2 (0.0-0.7); EOS % 2.9 % (1.5-5.0); GRAN # 5.35 (1.4-6.5); HEMOGLOBIN 11.2 g/dL (12.0-16.0); LYMPH % 13.1 % (22.0-35.0); MEAN CELL VOLUME 92.5 fl (80.0-105.0); MEAN CORPUSCULAR HEMOGLOBIN 31.1 pg (25.0-35.0); MEAN CORPUSCULAR HGB CONC 33.6 g/dl (31.0-37.0); MEAN PLATELET VOLUME 9.5 fl (7.0-11.0); MONO # 1.1 (0.1-0.6); MONO % 13.7 % (1.0-6.0); RBC 3.6 10^6/uL (3.5-6.1); RED CELL DISTRIBUTION WIDTH 14.8 % (11.5-14.5); WHITE BLOOD COUNT 7.6 10^3/uL (4.5-11.0)
[2018-03-10] MEDS ORDERED: Enoxaparin 30 mg Syringe SC SCH (10:00)
[2018-03-10] MEDS: POLYETHYLENE GLYCOL 3350 17 GM/Dose PACKET PO SCH (10:33)
--- NOTE | 2018-03-10 11:49 | CP.PCM.PN ---
Subjective - Date & Time of Evaluation Date of Evaluation: 03/10/18 Time of Evaluation: 09:15 - Subjective Subjective: Endocrinology Progress Note - Dr. Moon Patient was seen and examined at bedside. No acute complaints at this time. No acute or adverse events overnight. Patient tolerated her PT, oral intake this AM and is moving bowels and bladder regularly. Patient denied fever, chills, shortness of breath, chest pains, abdominal pains, nausea, vomiting, diarrhea, constipation, or dysuria. Objective - Vital Signs/Intake and Output Vital Signs (last 24 hours): Temp Pulse Resp BP Pulse Ox 97.7 F 69 19 171/74 H 95 03/10/18 06:00 03/10/18 10:33 03/10/18 06:00 03/10/18 10:33 03/10/18 06:00 Intake and Output: 03/10/18 03/10/18 06:59 18:59 Intake Total 1479 Output Total 1000 Balance 479 - Medications Medications: Current Medications Aspirin (Aspirin Chewable) 81 mg PO DAILY [facility] Last Admin: 03/10/18 10:33 Dose: 81 mg Carvedilol (Coreg) 6.25 mg PO BID [facility] Last Admin: 03/10/18 10:32 Dose: 6.25 mg Dextrose (Dextrose 50% Inj) 50 ml IVP ONCE PRN PRN Reason: Hypoglycemia Enoxaparin Sodium (Lovenox) 30 mg SC Q12H [facility]; Protocol Last Admin: 03/10/18 10:32 Dose: 30 mg Furosemide (Lasix) 20 mg IVP Q12 [facility] Last Admin: 03/10/18 10:33 Dose: 20 mg Piperacillin Sod/Tazobactam Sod (Zosyn 3.375 In Ns 100ml) 100 mls @ 25 mls/hr IVPB Q8 [facility] Last Admin: 03/10/18 05:30 Dose: 25 mls/hr Insulin Detemir (Levemir) 6 unit SC HS [facility] Last Admin: 03/09/18 21:21 Dose: 6 units Insulin Human Lispro (Humalog Low) 0 units SC ACHS [facility]; Protocol Last Admin: 03/10/18 08:30 Dose: Not Given Insulin Human Lispro (Humalog) 3 units SC AC [facility] Last Admin: 03/10/18 08:30 Dose: Not Given Levothyroxine Sodium (Synthroid) 100 mcg PO 0600 [facility] Last Admin: 03/10/18 05:30 Dose: 100 mcg Lisinopril (Zestril) 2.5 mg PO DAILY [facility] Last Admin: 03/10/18 10:33 Dose: 2.5 mg Pantoprazole Sodium (Protonix Ec Tab) 40 mg PO 0600 [facility] Last Admin: 03/10/18 05:30 Dose: 40 mg Polyethylene Glycol (Miralax) 17 gm PO DAILY [facility] Last Admin: 03/10/18 10:33 Dose: 17 gm - Labs Labs: 03/10/18 08:40 03/10/18 06:50 PT 10.6 SECONDS (9.4-12.5) 03/05/18 09:40 INR 0.92 03/05/18 09:40 APTT 24.7 Seconds (25.1-36.5) L 03/10/18 08:40 - Constitutional Appears: No Acute Distress - Head Exam Head Exam: ATRAUMATIC, NORMAL INSPECTION, NORMOCEPHALIC - Eye Exam Eye Exam: EOMI, Normal appearance, PERRL Pupil Exam: NORMAL ACCOMODATION, PERRL - ENT Exam ENT Exam: Mucous Membranes Moist, Normal Exam - Respiratory Exam Respiratory Exam: Clear to Ausculation Bilateral, NORMAL BREATHING PATTERN - Cardiovascular Exam Cardiovascular Exam: REGULAR RHYTHM, +S1, +S2. absent: Murmur - GI/Abdominal Exam GI & Abdominal Exam: Soft, Normal Bowel Sounds. absent: Tenderness - Neurological Exam Neurological Exam: Alert, Awake, CN II-XII Intact - Psychiatric Exam Psychiatric exam: Normal Affect, Normal Mood - Skin Skin Exam: Dry, Intact, Normal Color, Warm Assessment and Plan - Assessment and Plan (Free Text) Assessment: 82 F admitted with AMS 2/2 DKA & NSTEMI DKA Uncontrolled DM2 Hypothyroidism NSTEMI HTN HLD CAD s/p CABG Breast Ca s/p lumpectomy Plan: Agap closed, insulin drip stopped, started on 12u levemir HS, titrated to 6u HS, and humalog 6u TID AC titrated to 3u TID AC. Most recent Hgb A1c 9.7. Continue with Carb consistent heart healthy diet. Continue fingerstick ACHS to monitor for good glycemic control.
--- NOTE | 2018-03-10 12:48 | CP.PCM.APN ---
Objective - Vital Signs/Intake and Output Vital Signs (last 24 hours): Temp Pulse Resp BP Pulse Ox 97.7 F 69 19 171/74 H 95 03/10/18 06:00 03/10/18 10:33 03/10/18 06:00 03/10/18 10:33 03/10/18 06:00 Intake and Output: 03/10/18 03/10/18 06:59 18:59 Intake Total 1479 Output Total 1000 Balance 479 - Medications Medications: Current Medications Aspirin (Aspirin Chewable) 81 mg PO DAILY [facility] Last Admin: 03/10/18 10:33 Dose: 81 mg Carvedilol (Coreg) 12.5 mg PO BID [facility] Dextrose (Dextrose 50% Inj) 50 ml IVP ONCE PRN PRN Reason: Hypoglycemia Enoxaparin Sodium (Lovenox) 30 mg SC DAILY [facility]; Protocol Furosemide (Lasix) 20 mg IVP Q12 [facility] Last Admin: 03/10/18 10:33 Dose: 20 mg Piperacillin Sod/Tazobactam Sod (Zosyn 3.375 In Ns 100ml) 100 mls @ 25 mls/hr IVPB Q8 [facility] Last Admin: 03/10/18 05:30 Dose: 25 mls/hr Insulin Detemir (Levemir) 6 unit SC HS [facility] Last Admin: 03/09/18 21:21 Dose: 6 units Insulin Human Lispro (Humalog Low) 0 units SC ACHS [facility]; Protocol Last Admin: 03/10/18 12:37 Dose: 2 units Insulin Human Lispro (Humalog) 3 units SC AC [facility] Last Admin: 03/10/18 12:37 Dose: 3 units Isosorbide Mononitrate (Imdur) 60 mg PO DAILY [facility] Last Admin: 03/10/18 12:37 Dose: 60 mg Levothyroxine Sodium (Synthroid) 100 mcg PO 0600 [facility] Last Admin: 03/10/18 05:30 Dose: 100 mcg Lisinopril (Zestril) 2.5 mg PO DAILY [facility] Last Admin: 03/10/18 10:33 Dose: 2.5 mg Pantoprazole Sodium (Protonix Ec Tab) 40 mg PO 0600 [facility] Last Admin: 03/10/18 05:30 Dose: 40 mg Polyethylene Glycol (Miralax) 17 gm PO DAILY [facility] Last Admin: 03/10/18 10:33 Dose: 17 gm - Labs Labs: 03/10/18 08:40 03/10/18 06:50 PT 10.6 SECONDS (9.4-12.5) 03/05/18 09:40 INR 0.92 03/05/18 09:40 APTT 24.7 Seconds (25.1-36.5) L 03/10/18 08:40 - Constitutional Appears: No Acute Distress - Eye Exam Eye Exam: Normal appearance Pupil Exam: NORMAL ACCOMODATION - ENT Exam ENT Exam: absent: Mucous Membranes Dry, Mucous Membranes Moist, Normal Exam, Normal External Ear Exam, Normal Oropharynx, TM's Normal Bilaterally - Neck Exam Neck Exam: Full ROM. absent: Lymphadenopathy, Meningismus, Normal Inspection, Tenderness, Thyromegaly - Respiratory Exam Respiratory Exam: Clear to Ausculation Bilateral, NORMAL BREATHING PATTERN. absent: Accessory Muscle Use, Chest Wall Tenderness, Decreased Breath Sounds, Prolonged Expiratory Phase, Rales, Rhonchi, Wheezes, Respiratory Distress, Stridor - Cardiovascular Exam Cardiovascular Exam: +S1, +S2 - GI/Abdominal Exam GI & Abdominal Exam: Soft, Normal Bowel Sounds. absent: Bruit, Distended, Firm, Guarding, Rigid, Tenderness, Diminished Bowel Sounds, Hernia, Hyperactive Bowel Sounds, Hypoactive Bowel Sounds, Mass, Organomegaly, Pulsatile Mass, Rebound - Extremities Exam Extremities Exam: Normal Capillary Refill. absent: Calf Tenderness, Full ROM, Joint Swelling, Normal Inspection, Pedal Edema, Tenderness - Neurological Exam Neurological Exam: Alert, Awake - Psychiatric Exam Psychiatric exam: Normal Mood - Skin Skin Exam: Dry, Intact Assessment and Plan - Assessment and Plan (Free Text) Plan: Head CT 03/05/18 09:34 IMPRESSION: No evidence of acute intracranial hemorrhage mass effect or midline shift. Moderate atrophy and [id number] chronic microvascular white matter ischemic changes. Abdomen Ultrasound 03/06/18 15:29 IMPRESSION: Interval grossly abnormal appearing gallbladder with mural thickening and gross complicated pericholecystic fluid/phlegmon potentially reflecting abscess. No sonographic evidence of biliary tree dilatation however acalculous cholecystitis is in question and further clinical correlation is recommended. Eagy-nb-raiifutm abdominal ascites. Pancreas completely obscured by overlying bowel gas. Abdomen/Pelvis CT 03/08/18 10:56 IMPRESSION: No evidence of right upper quadrant abscess. Large bilateral pleural effusions with compressive atelectasis. Pelvic ascites with anasarca. Colonic diverticulosis. Leiomyomatous uterus. 82 yr old female with pmh sig for dm, htn, hld brest ca s/p lumpectomy, cabg x2 who presented to the Er with ams/ confusion per daughter now being transferred to telemetry after ICU mgmt forr NSTEMI, DKA, JUAN and lactid acidosis as well as E coli UTI pt whose initial glucose levels were at 936 , troponins 8.10 now stabliizing 6.9 4 now s/p iV insulin drip with insulin coverages being adjusted by Dr Moon as noted sternotomy wound - wound culture noted as above , on iv antibiotics NSEMI- cardiology notes rev'd - medical mgmt on telemetry, Dr Porter to discuss cath with pt for NSTEMI per discussion with primary team - iV diuretics and plan for tcu if no cardiac intervention planned/ if pt refuses, referral sent to TCU , spoke to Anahy in TCu will follow
--- NOTE | 2018-03-10 12:58 | CP.PCM.DIS ---
Provider - Provider Date of Admission: 03/05/18 10:22 Attending physician: Sadia Atkinson MD Primary care physician: Jayy Barney MD Consults: 03/05/18 11:57 Physician Consult Stat Comment: Consulting Provider: Ari Garzon Consulting Physician: Ari Garzon Reason for Consult: pt known to you, Trop 2, RBBB, and Twave inversions on EKG 03/05/18 13:38 Diabetic Education Referral Routine Comment: Physician Instructions: Reason For Exam: IDDM 03/05/18 19:46 Social Work Referral Routine Comment: lives alone Physician Instructions: Reason For Exam: lives alone 03/05/18 20:10 Nursing Referral for Wound Care Routine Comment: Physician Instructions: Reason For Exam: open lesion on chest. 03/05/18 20:18 Nursing Referral for Palliative Care Routine Comment: Physician Instructions: Reason For Exam: DNI 03/05/18 21:48 Consult [Physician Consult] Routine Comment: DKA,Hyperglycemia, hyponatremia, hypocalcemia. Consulting Provider: Myrtle Moon Consulting Physician: Myrtle Moon Reason for Consult: DKA,Hyperglycemia, hyponatremia, hypocalcemia. 03/06/18 02:01 Consult [Physician Consult] Routine Comment: hypotension, occult stool test positive. Consulting Provider: Shelly Holt V Consulting Physician: Shelly Holt V Reason for Consult: hypotension, occult stool test positive. 03/08/18 12:46 Consult [Physician Consult] Routine Comment: Consulting Provider: Deepak Pickard Consulting Physician: Deepak Pickard Reason for Consult: possible GB abscess? 03/09/18 11:09 TCU [Evaluation for TRCU] Routine Comment: Physician Instructions: Reason For Exam: physical therapy recs Time Spent in preparation of Discharge (in minutes): 45 Hospital Course - Lab Results Lab Results: Micro Results 03/05/18 10:07 Blood Blood Culture - Final NO GROWTH AFTER 5 DAYS 03/05/18 10:07 Blood Gram Stain - Final TEST NOT PERFORMED 03/05/18 09:37 Blood Blood Culture - Final NO GROWTH AFTER 5 DAYS 03/05/18 09:37 Blood Gram Stain - Final TEST NOT PERFORMED 03/05/18 13:30 Chest Gram Stain - Final 03/05/18 13:30 Chest Wound Culture - Final Corynebacterium Species 03/05/18 09:37 Urine,Clean Catch Urine Culture - Final Escherichia Coli 03/05/18 12:30 Naris MRSA Culture (Admit) - Final MRSA NOT DETECTED Most Recent Lab Values WBC 7.6 10^3/uL (4.5-11.0) 03/10/18 08:40 RBC 3.60 10^6/uL (3.5-6.1) 03/10/18 08:40 Hgb 11.2 g/dL (12.0-16.0) L 03/10/18 08:40 Hct 33.3 % (36.0-48.0) L 03/10/18 08:40 MCV 92.5 fl (80.0-105.0) 03/10/18 08:40 MCH 31.1 pg (25.0-35.0) 03/10/18 08:40 MCHC 33.6 g/dl (31.0-37.0) 03/10/18 08:40 RDW 14.8 % (11.5-14.5) H 03/10/18 08:40 Plt Count 232 10^3/uL (120.0-450.0) 03/10/18 08:40 MPV 9.5 fl (7.0-11.0) 03/10/18 08:40 Gran % 70.0 % (50.0-68.0) H 03/10/18 08:40 Lymph % (Auto) 13.1 % (22.0-35.0) L 03/10/18 08:40 Major % (Auto) 13.7 % (1.0-6.0) H 03/10/18 08:40 Eos % (Auto) 2.9 % (1.5-5.0) 03/10/18 08:40 Baso % (Auto) 0.3 % (0.0-3.0) 03/10/18 08:40 Gran # 5.35 (1.4-6.5) 03/10/18 08:40 Lymph # (Auto) 1.0 (1.2-3.4) L 03/10/18 08:40 Major # (Auto) 1.1 (0.1-0.6) H 03/10/18 08:40 Eos # (Auto) 0.2 (0.0-0.7) 03/10/18 08:40 Baso # (Auto) 0.02 K/mm3 (0.0-2.0) 03/10/18 08:40 Neutrophils % (Manual) 90 % (50.0-70.0) H 03/06/18 11:00 Band Neutrophils % 1 % (0-2) 03/05/18 09:40 Lymphocytes % (Manual) 4 % (22.0-35.0) L 03/06/18 11:00 Monocytes % (Manual) 6 % (1.0-6.0) 03/06/18 11:00 Eosinophils % (Manual) 1 % (0.0-3.0) 03/05/18 09:40 Metamyelocytes % 2 % 03/05/18 09:40 Platelet Evaluation Normal (NORMAL) 03/05/18 09:40 PT 10.6 SECONDS (9.4-12.5) 03/05/18 09:40 INR 0.92 03/05/18 09:40 APTT 24.7 Seconds (25.1-36.5) L 03/10/18 08:40 pCO2 28 mm/Hg (35-45) L 03/05/18 19:19 pO2 51 mm/Hg (30-55) 03/06/18 05:30 HCO3 13.8 mmol/L (21-28) L 03/05/18 19:19 ABG pH 7.30 (7.35-7.45) L 03/05/18 19:19 ABG Total CO2 14.7 mmol.L (22-28) L 03/05/18 19:19 ABG O2 Saturation 95.5 % (95-98) 03/05/18 19:19 ABG O2 Content 12.6 ML/dl (15-23) L 03/05/18 19:19 ABG Base Excess -11.4 mmol/L (-2.0-3.0) L 03/05/18 19:19 ABG Hemoglobin 9.5 g/dL (11.7-17.4) L 03/05/18 19:19 ABG Carboxyhemoglobin 0.9 % (0.5-1.5) 03/05/18 19:19 POC ABG HHb (Measured) 4.4 % (0-5) 03/05/18 19:19 ABG Methemoglobin 0.8 % (0.0-3.0) 03/05/18 19:19 ABG O2 Capacity 13.2 mL/dl (16-24) L 03/05/18 19:19 VBG pH 7.24 (7.32-7.43) L 03/06/18 05:30 VBG pCO2 36.0 (40-60) L 03/06/18 05:30 VBG HCO3 15.4 mmol/l (21-28) L 03/06/18 05:30 VBG Total CO2 16.5 mmol.L (22-28) L 03/06/18 05:30 VBG O2 Sat (Calc) 85.0 % (40-65) H 03/06/18 05:30 VBG Base Excess -11.1 mmol/L (0.0-2.0) L 03/06/18 05:30 VBG Potassium 3.2 mmol/L (3.6-5.2) L 03/06/18 05:30 Hgb O2 Saturation 93.8 % (95.0-98.0) L 03/05/18 19:19 Sodium 134.0 mmol/L (132-148) 03/06/18 05:30 Chloride 104.0 mmol/L (98-107) 03/06/18 05:30 Glucose 112 mg/dl (65-105) H 03/06/18 05:30 Lactate 2.5 mmol/L (0.7-2.1) H 03/06/18 05:30 FiO2 21.0 % 03/06/18 05:30 Sodium 135 mmol/L (132-148) 03/10/18 06:50 Potassium 4.0 mmol/L (3.6-5.0) 03/10/18 06:50 Chloride 107 mmol/L (98-107) 03/10/18 06:50 Carbon Dioxide 22 mmol/L (21-33) 03/10/18 06:50 Anion Gap 10 (10-20) 03/10/18 06:50 BUN 9 mg/dL (7-21) 03/10/18 06:50 Creatinine 0.7 mg/dl (0.7-1.2) 03/10/18 06:50 Est GFR ( Amer) > 60 03/10/18 06:50 Est GFR (Non-Af Amer) > 60 03/10/18 06:50 POC Glucose (mg/dL) 350 mg/dL (65-110) H 03/10/18 12:11 Random Glucose 151 mg/dL (70-110) H 03/10/18 06:50 Hemoglobin A1c 9.7 % (4.2-6.5) H D 03/06/18 05:30 Serum Osmolality 326 mosm/kg (272-300) H 03/05/18 09:40 Calcium 8.4 mg/dL (8.4-10.5) 03/10/18 06:50 Phosphorus 2.1 mg/dL (2.5-4.5) L 03/08/18 06:00 Magnesium 1.8 mg/dL (1.7-2.2) 03/08/18 06:00 Total Bilirubin 0.8 mg/dL (0.2-1.3) 03/10/18 06:50 AST 74 U/L (14-36) H D 03/10/18 06:50 ALT 127 U/L (7-56) H 03/10/18 06:50 Alkaline Phosphatase 85 U/L (38-126) 03/10/18 06:50 Lactate Dehydrogenase 1392 U/L (333-699) H 03/06/18 19:25 Total Creatine Kinase 199 U/L (35-230) 03/05/18 09:40 Troponin I 6.49 ng/mL H* 03/08/18 13:00 Total Protein 5.9 g/dL (5.8-8.3) 03/10/18 06:50 Albumin 2.9 g/dL (3.0-4.8) L 03/10/18 06:50 Globulin 3.0 gm/dL 03/10/18 06:50 Albumin/Globulin Ratio 1.0 (1.1-1.8) L 03/10/18 06:50 Procalcitonin 4.12 NG/ML (0.19-0.49) H 03/05/18 21:23 Free T4 1.56 ng/dL (0.78-2.19) 03/06/18 05:30 Thyroxine (T4) 6.3 ug/dL (5.5-11.0) 03/06/18 05:30 TSH 3rd Generation 2.87 mIU/mL (0.46-4.68) 03/06/18 05:30 Venous Blood Potassium 3.2 mmol/L (3.6-5.2) L 03/06/18 05:30 Urine Color Light red (YELLOW) 03/05/18 09:37 Urine Appearance Slight-cloudy (CLEAR) 03/05/18 09:37 Urine pH 6.0 (4.7-8.0) 03/05/18 09:37 Ur Specific [place] 1.020 (1.005-1.035) 03/05/18 09:37 Urine Protein 100 mg/dL (<30 mg/dL) H 03/05/18 09:37 Urine Glucose (UA) >=1000 mg/dL (NEGATIVE) 03/05/18 09:37 Urine Ketones 15 mg/dL (NEGATIVE) H 03/05/18 09:37 Urine Blood Large (NEGATIVE) H 03/05/18 09:37 Urine Nitrate Negative (NEGATIVE) 03/05/18 09:37 Urine Bilirubin Small (NEGATIVE) H 03/05/18 09:37 Urine Urobilinogen 0.2 E.U./dL (<1 E.U./dL) 03/05/18 09:37 Ur Leukocyte Esterase Trace Aries/uL (NEGATIVE) H 03/05/18 09:37 Urine RBC Tntc /hpf (0-2) 03/05/18 09:37 Urine WBC 2 - 5 /hpf (0-6) 03/05/18 09:37 Ur Epithelial Cells 0 - 2 /hpf (0-5) 03/05/18 09:37 Urine Bacteria Mod (NEG) 03/05/18 09:37 Salicylates < 1 mg/dL (2.0-20.0) L 03/05/18 09:30 Acetaminophen < 10.0 ug/ml (10.0-20.0) L 03/05/18 09:30 B-Hydroxybutyrate 6.90 mM (0.02-0.27) H 03/05/18 09:40 Hepatitis A IgM Ab Negative (NEGATIVE) 03/07/18 06:00 Hep Bs Antigen Negative (NEGATIVE) 03/07/18 06:00 Hep B Core IgM Ab Negative (NEGATIVE) 03/07/18 06:00 Hepatitis C Antibody Negative (NEGATIVE) 03/07/18 06:00 - Hospital Course Hospital Course: Upon presentation Patient is an 82 yr old female with pmh HTN, HLD, DM, Breast Cancer (s/p lumpectomy in remission) and CABGx2 (1982 and 1995) presenting to [facility] ED as her daughter felt she sounded confused on the phone this AM. Upon going to check on her dughter found patient confused and with AMS. Patient states that she has been doing well since D/C in december but is not sure if she has been taking her insulin over the past few days. She is able to answer simple questions and denies being in any pain. She additionally denies DINH, f/c, CP, SOB, abdominal pain, n/v, bloody BM and extremity pain/weakness. 12 point ROS otherwise negative. Daughter and patient indicated her desire not to be intubated or resuscitated at this time and appropriate paperwork was pr ocured. While in ED patient was found to be in DKA, have an elevated troponin, transaminitis, Anemia, positive FOBT and UA was suggestive of UTI. Pt's Research Statistician Dr. Garzon was made aware and contacted at this time. Dr. Moon, endocrinology and Dr. Holt, GI were also consulted at this time for further workup. Additionally it was noted that the patient had a protruding sternotomy wire that was cultured and grew corynebacterium. Patient was placed on Insulin drip, IV PPI and antibiotics and admitted to ICU. All home medications were restarted as appropriate to the patient's condition. D/t positive FOBT pt was not placed on anticoagulants at this time. Serial troponins were ordered as well as serial CMP and blood sugar checks to assess for DKA resolution. Serial troponins revealed continuing increase and patient was subsequently placed on Heparin drip per Dr. Garzon. Troponins trended down over the next few days. Upon resolution of her anion gap acidosis patient was placed on Levimir and Humalog which was titrated per endocrinology recommendations. The patient was downgraded to telemetry floor on this day. - Date & Time of H&P Date of H&P: 03/10/18 Time of H&P: 09:30 Discharge Exam - Head Exam Head Exam: ATRAUMATIC, NORMAL INSPECTION, NORMOCEPHALIC Discharge Plan - Follow Up Plan Condition: GUARDED Disposition: HOME/ ROUTINE Additional Instructions: Upon Discharge you will be transferred to the transitional care unit in [facility] for further physical therapy before going home. While there you will continue to take all of your medications. Further discharge instructions will be given upon discharge from TCU. Upon discharge from TCU, you will need to follow up with [facility], to address your exposed sternal wire which will require removal. Referrals: Ari Garzon MD [Staff Provider] - Jayy Barney MD [Primary Care Provider] -
--- NOTE | 2018-03-10 13:36 | RAD ---
Date of service: 03/10/2018 HISTORY: pleural effusions COMPARISON: 03/05/2018 FINDINGS: LUNGS: New bibasilar infiltrates and effusions. PLEURA: As above CARDIOVASCULAR: No aortic atherosclerotic calcification present. Mild cardiomegaly no pulmonary vascular congestion. OSSEOUS STRUCTURES: No significant abnormalities. VISUALIZED UPPER ABDOMEN: Normal. OTHER FINDINGS: None. IMPRESSION: New bibasilar infiltrates and effusions
--- NOTE | 2018-03-10 13:54 | PN ---
DATE: 03/10/2018 SUBJECTIVE: The patient is seen sitting in bed in telemetry. She is currently comfortable. She has significant confusion in the evening, but appears better during the daytime. She has had no recurrent chest pain. CURRENT MEDICATIONS: Include aspirin, Coreg 6.25 mg b.i.d., insulin, Lasix 20 mg IV b.i.d., Levemir insulin, Lovenox, MiraLax, Protonix, Synthroid and Zestril 2.5 mg daily, as well as Zosyn. OBJECTIVE: GENERAL: She is an elderly woman who appears comfortable at rest. VITAL SIGNS: The blood pressure is 170/74 with a pulse of 70, in sinus. Respirations of 16. She is afebrile. HEENT AND NECK: No JVD. CHEST: A few scattered rhonchi heard. HEART: PMI displaced laterally with a soft systolic murmur at the lower left sternal border and apex. ABDOMEN: Soft, nontender. Normoactive bowel sounds. EXTREMITIES: No edema. SKIN: Dressing remains over the upper sternum where a small area of skin ulceration has occurred with extrusion of her sternal wire is noted. LABORATORY DATA: Potassium 4.0, BUN and creatinine are 9 and 0.7, glucose 151. White count is 7.6, hemoglobin and hematocrit are 11.2 and 33.3, platelet count 232,000. IMPRESSION: 1. Status post non-ST segment elevation myocardial infarction, clinically stable at present with no post-infarct angina. 2. Known coronary artery disease, status post prior bypass surgery on two occasions, the last one over 20 years ago. 3. Recent diabetic ketoacidosis, improved. 4. Moderate mitral and tricuspid regurgitation. 5. Moderate left ventricular systolic dysfunction. 6. Extrusion of sternal wire. RECOMMENDATIONS: The options of cardiac catheterization versus pre-discharge stress test versus empiric medical therapy were discussed with the patient as well as her daughter via phone. Now, she is reluctant to have any procedures done at this time. She continues to appear somewhat depressed and states that she would like to . The potential for recurrent infarcts was discussed with her. The possibility that her recurrent infarct would not be life threatening but rather cause significant functional impairment was also reviewed with her. At this time, intensification of medical therapy will be planned. If she has recurrent symptoms, a stress test will be planned as well. Her prognosis remains guarded; however, according to her wishes, we will manage her very conservatively at this time. Once discharged, she will be referred to [facility], to address her exposed sternal wire, which will require removal. In the interim, dressing remains applied and the area kept clean with topical antibiotic to be used as well. We will follow along as needed. Ari Garzon MD MTDD
[2018-03-10 14:27] VITALS: RESP 16; TEMP 98.9
--- NOTE | 2018-03-10 14:29 | CP.PCM.PN ---
Subjective - Date & Time of Evaluation Date of Evaluation: 03/10/18 Time of Evaluation: 13:00 - Subjective Subjective: Infectious Disease Follow Up: March 10, 2018 82 yo female found unconscious by her daughter at patient's home. Brought to [facility] for medical care and found to have Lactic acid of 7.6 on admission and procalcitonin of 4.12. The patient is currently awake and alert. Cultures of the urine with E. coli and cultures of the chest with Corynebacterium. The patient has received Zosyn IV and Vancomycin IV for antibiotic treatment. Patient making no complaints at this time. She appears unaware of how severe her medical condition was on presentation to [facility]. Objective - Vital Signs/Intake and Output Vital Signs (last 24 hours): Temp Pulse Resp BP Pulse Ox 97.7 F 69 19 171/74 H 95 03/10/18 06:00 03/10/18 10:33 03/10/18 06:00 03/10/18 10:33 03/10/18 06:00 Intake and Output: 03/10/18 03/10/18 06:59 18:59 Intake Total 1479 Output Total 1000 Balance 479 - Medications Medications: Current Medications Aspirin (Aspirin Chewable) 81 mg PO DAILY [facility] Last Admin: 03/10/18 10:33 Dose: 81 mg Carvedilol (Coreg) 12.5 mg PO BID [facility] Dextrose (Dextrose 50% Inj) 50 ml IVP ONCE PRN PRN Reason: Hypoglycemia Enoxaparin Sodium (Lovenox) 30 mg SC DAILY [facility]; Protocol Furosemide (Lasix) 20 mg IVP Q12 [facility] Last Admin: 03/10/18 10:33 Dose: 20 mg Piperacillin Sod/Tazobactam Sod (Zosyn 3.375 In Ns 100ml) 100 mls @ 25 mls/hr IVPB Q8 [facility] Last Admin: 03/10/18 05:30 Dose: 25 mls/hr Insulin Detemir (Levemir) 6 unit SC HS [facility] Last Admin: 03/09/18 21:21 Dose: 6 units Insulin Human Lispro (Humalog Low) 0 units SC ACHS [facility]; Protocol Last Admin: 03/10/18 12:37 Dose: 2 units Insulin Human Lispro (Humalog) 3 units SC AC [facility] Last Admin: 03/10/18 12:37 Dose: 3 units Isosorbide Mononitrate (Imdur) 60 mg PO DAILY [facility] Last Admin: 03/10/18 12:37 Dose: 60 mg Levothyroxine Sodium (Synthroid) 100 mcg PO 0600 [facility] Last Admin: 03/10/18 05:30 Dose: 100 mcg Lisinopril (Zestril) 2.5 mg PO DAILY [facility] Last Admin: 03/10/18 10:33 Dose: 2.5 mg Pantoprazole Sodium (Protonix Ec Tab) 40 mg PO 0600 [facility] Last Admin: 03/10/18 05:30 Dose: 40 mg Polyethylene Glycol (Miralax) 17 gm PO DAILY [facility] Last Admin: 03/10/18 10:33 Dose: 17 gm - Labs Labs: 03/10/18 08:40 03/10/18 06:50 PT 10.6 SECONDS (9.4-12.5) 03/05/18 09:40 INR 0.92 03/05/18 09:40 APTT 24.7 Seconds (25.1-36.5) L 03/10/18 08:40 - Constitutional Appears: Non-toxic, No Acute Distress - Head Exam Head Exam: ATRAUMATIC, NORMOCEPHALIC - Eye Exam Eye Exam: EOMI, PERRL Pupil Exam: NORMAL ACCOMODATION, PERRL - ENT Exam ENT Exam: Mucous Membranes Moist, Normal External Ear Exam, TM's Normal Bilaterally - Neck Exam Neck Exam: Full ROM, Normal Inspection - Respiratory Exam Respiratory Exam: Clear to Ausculation Bilateral, NORMAL BREATHING PATTERN. absent: Rales, Rhonchi, Wheezes - Cardiovascular Exam Cardiovascular Exam: REGULAR RHYTHM, RRR, +S1, +S2 - GI/Abdominal Exam GI & Abdominal Exam: Soft, Normal Bowel Sounds. absent: Distended, Tenderness - Extremities Exam Extremities Exam: Full ROM, Normal Inspection - Neurological Exam Neurological Exam: Alert, Awake, CN II-XII Intact, Oriented x3 - Psychiatric Exam Psychiatric exam: Normal Affect, Normal Mood - Skin Skin Exam: Intact, Normal Color Assessment and Plan - Assessment and Plan (Free Text) Assessment: 82 y old female, PMhx HTN, HLD, CAD s/p CABG x 2, DM2, hypothyroidism, and breast ca s/p lumpectomy of L breast in remission, who presented with DKA, NSTEMI, new T wave inversions and RBBB on EKG on admission. The patient also had UTI with E. coli. Started on Zosyn for antibiotic coverage. Blood cultures negative for [address] showing ascites but no abscess. Continue on Zosyn IV for UTI with E. coli and Corynebacterium. Consider 7 days of treatment. Supportive care. Thank you for allowing me to participate in the care of the patient, we will follow with you.
[2018-03-10] MEDS ORDERED: Insulin Lispro 1 UNITS/0.01 ML SC SCH (17:00)
[2018-03-10 17:08] VITALS: BP 138/54; PULSE 67
[2018-03-10] MEDS ORDERED: Insulin Lispro 1 UNITS/0.01 ML SC ONE (17:30)
--- NOTE | 2018-03-10 19:05 | PN ---
DATE: 03/10/2018 ENDO FOLLOWUP NOTE LOCATION: Room 272. SUBJECTIVE: This is an 82-year-old female with recent uncontrolled type 2 insulin-requiring diabetes presenting here with diabetic ketoacidosis and dehydration and since then improved clinically and metabolically as noted thereof. However, overnight, she has developed once again extremes of glycemic fluctuations and today's glucose levels have ranged from 274 to 350 mg/dL. Her fasting glucose was 136 with the bedtime glucose of 199 mg/dL. So at this time, we will modify once again her basal and bolus insulin regimen and increase the Humalog to 5 units subcutaneously t.i.d. before meals as ordered. PLAN: We will continue the low-dose basal insulin given as Levemir at 6 units subcutaneously at bedtime daily as given. We will titrate incrementally as indicated to optimize metabolic control. We will obtain serial chemistries and supplement accordingly needed. We will follow. Myrtle Moon MD
[2018-03-10] MEDS ORDERED: Insulin Detemir 100 units/ml Vial (Levemir) SC SCH (22:00)
[2018-03-11] MEDS ORDERED: Enoxaparin 30 mg Syringe SC SCH (10:00)
== END 2018-03-10 18:31 | DRG 637 ==
LOC: ED 09:11 → ERH 10:22 → ICU 12:18 → 2RSO 03-09 00:30
PROVIDERS: ADMIT Hospitalist; ATTEND Internal Medicine
PROC: 05HY33Z Insertion of Infusion Device into Upper Vein, Percutaneous Approach (ICD-10-PCS; principal; 2018-03-07)
DX: E11.10 Type 2 diabetes mellitus with ketoacidosis without coma (principal); I21.4 Non-ST elevation (NSTEMI) myocardial infarction; G92 Toxic encephalopathy; I50.21 Acute systolic (congestive) heart failure; E87.1 Hypo-osmolality and hyponatremia; E87.2 Acidosis; N39.0 Urinary tract infection, site not specified; N17.9 Acute kidney failure, unspecified; R18.8 Other ascites; K81.0 Acute cholecystitis; I25.10 Atherosclerotic heart disease of native coronary artery without angina pectoris; I10 Essential (primary) hypertension; R47.81 Slurred speech; Z85.3 Personal history of malignant neoplasm of breast; E86.0 Dehydration; E03.9 Hypothyroidism, unspecified; Z79.4 Long term (current) use of insulin; E87.5 Hyperkalemia; I95.9 Hypotension, unspecified; D50.9 Iron deficiency anemia, unspecified; E87.6 Hypokalemia; K75.89 Other specified inflammatory liver diseases; F32.9 Major depressive disorder, single episode, unspecified; B96.20 Unspecified Escherichia coli [E. coli] as the cause of diseases classified elsewhere; D64.9 Anemia, unspecified; E11.649 Type 2 diabetes mellitus with hypoglycemia without coma; E78.5 Hyperlipidemia, unspecified; I08.1 Rheumatic disorders of both mitral and tricuspid valves; I11.0 Hypertensive heart disease with heart failure; I25.2 Old myocardial infarction; I45.10 Unspecified right bundle-branch block; K57.90 Diverticulosis of intestine, part unspecified, without perforation or abscess without bleeding; K76.1 Chronic passive congestion of liver; Z66 Do not resuscitate; Z79.82 Long term (current) use of aspirin; Z79.890 Hormone replacement therapy; Z79.899 Other long term (current) drug therapy; Z82.49 Family history of ischemic heart disease and other diseases of the circulatory system; Z90.12 Acquired absence of left breast and nipple; Z95.1 Presence of aortocoronary bypass graft

== ENCOUNTER 2018-03-10 18:35 | Inpatient (IN) | payer OTHER, BC, MEDICARE ==
[2018-03-10] MEDS ORDERED: Dextrose 50% SYRINGE Inj (50 ml) IVP PRN (18:57)
[2018-03-10 19:09] VITALS: BMI 22.8
[2018-03-10] MEDS: Insulin Lispro (humaLOG) LOW Coverage SC SCH (21:41)
[2018-03-10] MEDS: Piperacillin/Tazobact 3.375 gm 100 ML IVPB SCH (21:45)
[2018-03-10] MEDS ORDERED: Insulin Detemir 100 units/ml Vial (Levemir) SC SCH (22:00)
[2018-03-11] MEDS: Enoxaparin 30 mg Syringe SC SCH (05:45)
[2018-03-11] MEDS: Pantoprazole 40 mg EC Tab PO SCH (05:46)
[2018-03-11] MEDS: Levothyroxine 100 MCG TAB PO SCH (05:59)
[2018-03-11] MEDS: Insulin Lispro (humaLOG) LOW Coverage SC SCH ×4 (07:19→22:06)
[2018-03-11] MEDS ORDERED: Insulin Lispro 1 UNITS/0.01 ML SC SCH (07:30)
[2018-03-11] MEDS ORDERED: Insulin Detemir 100 units/ml Vial (Levemir) SC SCH (07:57)
[2018-03-11] MEDS: POLYETHYLENE GLYCOL 3350 17 GM/Dose PACKET PO SCH (09:47)
--- NOTE | 2018-03-11 12:46 | CP.PCM.HP ---
<Nancy Gudino - Last Filed: 03/11/18 14:27> History of Present Illness - History of Present Illness History of Present Illness: Internal medicine H&P for Dr. Shannon Patient is a 82 yr old female who has been transferred to TCU after a 5 day hospital stay for DKA, UTI and NSTEMI with subsequent pleural effusions. Patient has no complaints at this time and indicates that all previous symptoms have resolved. She is experiencing some seasonal sadness as this will be her first Karly without her who passed this past year. She otherwise denies any DINH, CP, SOB, f/c, n/v, abdominal pain and extremity pain/weakness. Present on Admission - Present on Admission Any Indicators Present on Admission: Yes History of Uncontrolled Diabetes: Yes Review of Systems - Review of Systems All systems: reviewed and no additional remarkable complaints except (as per HPI) Past Patient History - Infectious Disease Hx of Infectious Diseases: None - Past Social History Smoking Status: Never Smoked - CARDIAC Hx Cardiac Disorders: Yes Hx Hypercholesterolemia: Yes (HLD) Hx Hypertension: Yes - PULMONARY Hx Respiratory Disorders: No - NEUROLOGICAL Hx Neurological Disorder: No - HEENT Hx HEENT Problems: No - RENAL Hx Chronic Kidney Disease: No - ENDOCRINE/METABOLIC Hx Diabetes Mellitus Type 2: Yes Hx Hypothyroidism: Yes - HEMATOLOGICAL/ONCOLOGICAL Hx Blood Disorders: No - INTEGUMENTARY Hx Dermatological Problems: No - MUSCULOSKELETAL/RHEUMATOLOGICAL Hx Falls: Yes - GASTROINTESTINAL Hx Gastrointestinal Disorders: No - GENITOURINARY/GYNECOLOGICAL Hx Reproductive Disorders: No - PSYCHIATRIC Hx Psychophysiologic Disorder: No Hx Substance Use: No - SURGICAL HISTORY Hx Open Heart Surgery: Yes (CABG x2) Other/Comment: breast Ca R lumphectomy - ANESTHESIA Hx Anesthesia: Yes Hx Anesthesia Reactions: No Hx Malignant Hyperthermia: No Meds Allergies/Adverse Reactions: Allergies Allergy/AdvReac Type Severity Reaction Status Date / Time No Known Allergies Allergy Verified 03/05/18 09:24 Physical Exam - Constitutional Appears: Well, Non-toxic, No Acute Distress, Chronically Ill - Head Exam Head Exam: ATRAUMATIC, NORMOCEPHALIC - Eye Exam Eye Exam: EOMI - ENT Exam ENT Exam: Mucous Membranes Moist - Respiratory Exam Respiratory Exam: Decreased Breath Sounds (lower lung damon bilaterally) - Cardiovascular Exam Cardiovascular Exam: REGULAR RHYTHM - GI/Abdominal Exam GI & Abdominal Exam: Soft. absent: Distended, Guarding, Tenderness - Extremities Exam Extremities exam: Positive for: pedal pulses present. Negative for: calf tenderness, tenderness - Neurological Exam Neurological exam: Alert, Oriented x3 - Psychiatric Exam Psychiatric exam: Normal Affect, Normal Mood - Skin Skin Exam: Dry, Intact, Normal Color, Warm Results - Vital Signs Recent Vital Signs: Last Vital Signs Temp 97.5 F L 03/11/18 10:00 Pulse 83 03/11/18 10:00 Resp 16 03/11/18 10:00 BP 125/72 03/11/18 10:00 Pulse Ox 96 03/11/18 10:00 - Labs Labs: Laboratory Results - last 24 hr 03/11/18 03/11/18 05:50 11:54 POC Glucose (mg/dL) 199 H 195 H Assessment & Plan - Assessment and Plan (Free Text) Assessment: 82 y old female, PMhx HTN, HLD, CAD s/p CABG x 2, DM2, hypothyroidism, and breast ca s/p lumpectomy of L breast in remission, who presented with DKA, NSTEMI, new T wave inversions and RBBB on EKG on hospital admission, discharged to TCU for further PT and strengthening. Plan: Bilateral pleural effusions - Likely 2/2 to acute systolic CHF lafter NSTEMI - c/w lasix 20mg IV q12hrs - Monitor ins and outs - Will need repeat chest xray 03/13 - Encourage OOBTC - ECHO: moderately reduced LV function, EF 43% - Cardiology following, recommendations appreciated. Toxic metabolic encephalopathy - May be at baseline now. AAO x 2 - Likely secondary to multifactorial issues including UTI, DKA, NSTEMI, age related cognitive decline - Continue to treat underlying causes - Continue supportive care -Head CT per radiologist showed no evidence of acute intracranial hemorrhage or mass effect or midline shift, moderate atrophy and mild to moderate chronic microvascular white matter ischemic changes DKA (Resolved) -Type 1 insulin dependent DM -Endocrinology following, recommendations appreciated -Continue insulin per endocrinology -Hypoglycemia improved -Continue accuchecks -HgbA1C 9.7 NSTEMI with hemodynamic instability (resolved) - Cardiology following, recommendations appreciated - no longer on Heparin drip per cardiology Dr. Sorto - Troponins downtrended - Continue with Coreg and Lisinopril - Continue ASA - Patient not a candidate for current coronary intervention or angiography per cardiology UTI - Urine culture positive for Escherichia coli - Patient on Zosyn - Patient afebrile - Leukocytosis resolved - repeat labs Q3D Transaminitis - Likely ischemic hepatitis secondary to hypotension - LFTs downtrending - GI following, recommendations appreciated - Abdominal US per radiologist showed interval grossly abnormal appearing gallbladder with mural thickening in [place] complicated pericholecystic fluid/phlegmon potentially reflecting abscess, no sonographic evidence of biliary tree dilatation however acalculous cholecystitis is in question, mild to moderate abdominal ascites, pancreas completely obscured by overlying bowel gas - CT abdomen and pelvis per radiologist showed no evidence of right upper quadrant abscess, large bilateral pleural effusions with compressive atelectasis, pelvic ascites with anasarca, colonic diverticulosis, leiomyomatous uterus Hypokalemia (resolved) - Continue to monitor - repeat labs Q3D Anemia - FOBT positive on admission - H&H stable - GI following, recommendations appreciated - Continue Protonix - Continue to monitor CBC Q3D Hypothyroidism - Continue Synthroid Sternotomy wound - Continue local wound care - Per patient, has been there for about 2 years - Wound culture positive for corynebacterium PPX: GI/DVT prophylaxis: Protonix/Heparin Advanced directive. Patient is a DNR/DNI Dispo: Needs further work with PT to be safe to go home, may need VNS/homemaker to ensure proper insulin regimen enforcement Patient seen examined and discussed with Dr. Shiva Gudino, PGY 1 - Date & Time Date: 03/11/18 Time: 09:00 Decision To Admit - Pt Status Changed To: Hospital Disposition Of: Inpatient Admission - Admit Certification Admit to Inpatient:: After my assessment, the patient will require hospitalization for at least two midnights. This is because of the severity of symptoms shown, intensity of services needed, and/or the medical risk in this patient being treated as an outpatient. - . Bed Request Type: TRCU Admitting Physician: Katarina Shannon <Katarina Shannon - Last Filed: 03/12/18 18:31> Results - Vital Signs Recent Vital Signs: Last Vital Signs Temp 98.4 F 03/12/18 16:00 Pulse 64 03/12/18 17:41 Resp 20 03/12/18 16:00 BP 149/66 03/12/18 17:46 Pulse Ox 95 03/12/18 16:00 - Labs Result Diagrams: 03/12/18 06:00 Labs: Laboratory Results - last 24 hr 03/11/18 03/12/18 03/12/18 21:31 04:18 06:00 Sodium 133 Potassium 3.1 L Chloride 97 L Carbon Dioxide 32 Anion Gap 7 L BUN 11 Creatinine 0.8 Est GFR ( Amer) > 60 Est GFR (Non-Af Amer) > 60 POC Glucose (mg/dL) 315 H 239 H Random Glucose 203 H Hemoglobin A1c Calcium 8.1 L Total Bilirubin 0.6 AST 45 H D ALT 82 H Alkaline Phosphatase 66 Total Protein 5.4 L Albumin 2.7 L Globulin 2.7 Albumin/Globulin Ratio 1.0 L Thyroxine (T4) TSH 3rd Generation 03/12/18 03/12/18 03/12/18 06:00 06:00 11:34 Sodium Potassium Chloride Carbon Dioxide Anion Gap BUN Creatinine Est GFR ( Amer) Est GFR (Non-Af Amer) POC Glucose (mg/dL) 98 Random Glucose Hemoglobin A1c 9.6 H Calcium Total Bilirubin AST ALT Alkaline Phosphatase Total Protein Albumin Globulin Albumin/Globulin Ratio Thyroxine (T4) 6.7 TSH 3rd Generation 14.30 H 03/12/18 16:42 Sodium Potassium Chloride Carbon Dioxide Anion Gap BUN Creatinine Est GFR ( Amer) Est GFR (Non-Af Amer) POC Glucose (mg/dL) 290 H Random Glucose Hemoglobin A1c Calcium Total Bilirubin AST ALT Alkaline Phosphatase Total Protein Albumin Globulin Albumin/Globulin Ratio Thyroxine (T4) TSH 3rd Generation Attending/Attestation - Attestation I have personally seen and examined this patient.: Yes I have fully participated in the care of the patient.: Yes I have reviewed all pertinent clinical information: Yes Notes (Text): Patient seen and examined by me with resident at 10:25 AM on 03/11/18. Case including HPI, physical exam, and assessment and plan discussed with resident. Agree with above with following additions/corrections. Patient is an 82-year-old female past medical history significant for hypertension, hyperlipidemia, type 1 diabetes, breast cancer status post lumpectomy, and coronary artery disease status post CABG that presented to the emergency room with confusion and altered mental status on 03/05/18. Patient was found to have DKA. Patient was treated with insulin drip. DKA resolved. Patient's insulin adjusted by billing checker Dr. Cam. Patient was also found to have NSTEMI and was placed on heparin drip and ASA. Patient refused cardiac catheterization and was continues on ASA, Imdur, Lisinopril, and Coreg per production assistant Dr. Rothman. Patient was also found to have UTI with E. Coli and anterior chest wall wound with exposure of sternotomy wire which grew Corynebacterium. Patient was followed for infectious disease doctor and being treated with Zosyn. Patient's toxic metabolic encephalopathy reoslved. Patient was then found to have pleural effusions and was treated with IV lasix. Patient was seen by physical therapy who recommended TCU for gait instability. Patient was transferred to TCU on 03/10/18. In TCU, patient states that she is feeling ok. Patient states she feels a little down because it is the first Karly she will be spending without her . Patient states she also feels tired. She denies any shortness of breath. No chest pain or palpitations. No headaches or dizziness. No fevers or chills. No nausea, vomiting, or abdominal pain. No dysuria. Physical exam: General: Awake and alert lying in bed in no acute distress HEENT: Normocephalic, atraumatic. Extraocular muscles intact, pupils equal and reactive, no scleral icterus. Oropharynx is pink and moist. Neck is supple. Cardiovascular: Regular rhythm. Normal S1 and S2. Positive systolic murmur. No rubs or gallops appreciated Pulmonary: Normal respiratory effort. Decreased breath sounds bilaterally. No rhonchi, rales, or wheezing appreciated. Gastrointestinal: Soft, nondistended. Nontender. Positive bowel sounds all 4 quadrants. No guarding. Musculoskeletal: Moves all extremities. Trace lower extremity edema appreciated. No calf tenderness. Central nervous system: AAO x 2. Dermatologic: Skin warm and dry.Anterior chest wound with exposure of sternotomy wire; dressing clean, dry, and intact. No signs of infection (has been there for 2 years per patient). Assessment and plan: Patient is an 82-year-old female past medical history significant for hypertension, hyperlipidemia, type 2 diabetes, breast cancer status post lumpectomy, and coronary artery disease status post CABG that presented to the emergency room with confusion and altered mental status on 03/05/18. Patient treated and transferred to TCU on 03/10/18 for gait instability. 1. Gait instability. Continue physical therapy as tolerated. Fall precautions. 2. Bilateral pleural effusions. Likey secondary to acute systolic CHF likely secondary to NSTEMI. Continue Lasix 20mg IV q12hrs. Continue to monitor ins and outs. Chest xray on03/10/18 per radiologist showed new bibasilar infiltrates and effusions. Will repeat chest xray on 03/13/18. Continue Zosyn. 2d echo showed moderately reduced LV function, EF 43%. Cardiology following, recommendations ap preciated. 3. Toxic metabolic encephalopathy. Resolved. AAO x 2. Likely multifactorial secondary to UTI, DKA, NSTEMI. Head CT per radiologist showed no evidence of acute intracranial hemorrhage or mass effect or midline shift, moderate atrophy and mild to moderate chronic microvascular white matter ischemic changes. 4. DKA. Resolved. Type 1 insulin dependent DM. Endocrinology following, recommen dations appreciated. Continue insulin per endocrinology. Continue to monitor accuchecks. HgbA1C is 9.7. 5. NSTEMI. Cardiology following, recommendations appreciated. Continue with Coreg and Lisinopril. Continue Imdur. Continue ASA. Patient refusing cardiac catheterization. 2d echo per production assistant showed dilated left atrium, normal LV size, moderately reduced LV systolic function with segmental wall hypokinesis, moderate mitral regurgitation and tricuspid regurgitation, EF of approximately 43.1. 6. UTI. Urine culture positive for Escherichia coli. ID following, recommendations appreciated. Continue Zosyn. 7. Transaminitis. Likely ischemic hepatitis secondary to hypotension. LFTs downtrending. Abdominal ultrasound per radiologist showed interval grossly abnormal appearing gallbladder with mural thickening in [place] complicated pericholecystic fluid/phlegmon potentially reflecting abscess, no sonographic evidence of biliary tree dilatation however acalculous cholecystitis is in question, mild to moderate abdominal ascites, pancreas completely obscured by overlying bowel gas. CT abdomen and pelvis per radiologist showed no evidence of right upper quadrant abscess, large bilateral pleural effusions with compressive atelectasis, pelvic ascites with anasarca, colonic diverticulosis, leiomyomatous uterus. 8. Anemia. FOBT positive. H&H stable. Continue Protonix. Continue to monitor CBC 9. Hypothyroidism. Continue Synthroid 10. Sternotomy wound. Continue local wound care. Wound culture positive for corynebacterium. Continue Zosyn per ID. 11. GI/DVT prophylaxis. Protonix/Lovenox 12. Advanced directive. Patient is a DNR/DNI. Case was discussed in detail with the patient regarding current diagnosis and treatment plan. All questions answered.
[2018-03-11] MEDS: Piperacillin/Tazobact 3.375 gm 100 ML IVPB SCH ×2 (13:10→22:05)
[2018-03-11] MEDS: Insulin Lispro 1 UNITS/0.01 ML SC SCH ×2 (13:19→17:36)
--- NOTE | 2018-03-11 19:16 | CP.PCM.CON ---
History of Present Illness - History of Present Illness History of Present Illness: Infectious Disease Consultation: March 11, 2018 82 yo female found unconscious by her daughter at patient's home. Brought to [facility] for medical care and found to have Lactic acid of 7.6 on admission and pro calcitonin of 4.12. The patient is currently awake and alert. Cultures of the urine with E. coli and cultures of the chest with Corynebacterium. The patient has received Zosyn IV and Vancomycin IV for antibiotic treatment. Patient making no complaints at this time. Brought to Transitional Care. PMHx: HTN, HLD, DM, Breast Cancer, CAD PSHx: left breast lumpectomy, CABG x 2 vessels Allergies: NKDA Social Hx: No tobacco, EtOH, or illicit drug use. Active Medications Aspirin (Aspirin Chewable) 81 mg PO 0800 OZZY; Protocol Last Admin: 03/11/18 08:49 Dose: 81 mg Carvedilol (Coreg) 12.5 mg PO 0800,1800 OZZY; Protocol Last Admin: 03/11/18 17:19 Dose: 12.5 mg Dextrose (Dextrose 50% Inj) 50 ml IVP ONCE PRN; Protocol PRN Reason: Hypoglycemia Enoxaparin Sodium (Lovenox) 30 mg SC 0600 OZZY; Protocol Last Admin: 03/11/18 05:45 Dose: 30 mg Furosemide (Lasix) 20 mg IVP 0600,1800 OZZY; Protocol Last Admin: 03/11/18 17:38 Dose: 20 mg Piperacillin Sod/Tazobactam Sod (Zosyn 3.375 In Ns 100ml) 100 mls @ 25 mls/hr IVPB Q8 OZZY; Protocol Stop: 03/13/18 09:59 Last Admin: 03/11/18 13:10 Dose: 25 mls/hr Insulin Detemir (Levemir) 8 unit SC HS OZZY; Protocol Insulin Human Lispro (Humalog) 4 units SC AC OZZY Last Admin: 03/11/18 17:36 Dose: 4 units Insulin Human Lispro (Humalog Low) 0 units SC ACHS OZZY; Protocol Last Admin: 03/11/18 17:37 Dose: Not Given Isosorbide Mononitrate (Imdur) 60 mg PO 0630 OZZY; Protocol Last Admin: 03/11/18 05:46 Dose: 60 mg Levothyroxine Sodium (Synthroid) 100 mcg PO 0600 OZZY; Protocol Last Admin: 03/11/18 05:59 Dose: 100 mcg Lisinopril (Zestril) 2.5 mg PO DAILY OZZY; Protocol Last Admin: 03/11/18 09:47 Dose: 2.5 mg Pantoprazole Sodium (Protonix Ec Tab) 40 mg PO 0600 OZZY; Protocol Last Admin: 03/11/18 05:46 Dose: 40 mg Polyethylene Glycol (Miralax) 17 gm PO DAILY [facility]; Protocol Last Admin: 03/11/18 09:47 Dose: Not Given Family Hx: HTN in father ROS: No current fevers, chills, nausea, vomiting, diarrhea, headaches, dizziness, chest pain, abdominal pain, melena, hematuria, hematemesis, hematochezia, vision loss, hearing loss. Patient had loss of consciousness. Past Patient History - Infectious Disease Hx of Infectious Diseases: None - Past Social History Smoking Status: Never Smoked - CARDIAC Hx Cardiac Disorders: Yes Hx Hypercholesterolemia: Yes (HLD) Hx Hypertension: Yes - PULMONARY Hx Respiratory Disorders: No - NEUROLOGICAL Hx Neurological Disorder: No - HEENT Hx HEENT Problems: No - RENAL Hx Chronic Kidney Disease: No - ENDOCRINE/METABOLIC Hx Diabetes Mellitus Type 2: Yes Hx Hypothyroidism: Yes - HEMATOLOGICAL/ONCOLOGICAL Hx Blood Disorders: No - INTEGUMENTARY Hx Dermatological Problems: No - MUSCULOSKELETAL/RHEUMATOLOGICAL Hx Falls: Yes - GASTROINTESTINAL Hx Gastrointestinal Disorders: No - GENITOURINARY/GYNECOLOGICAL Hx Reproductive Disorders: No - PSYCHIATRIC Hx Psychophysiologic Disorder: No Hx Substance Use: No - SURGICAL HISTORY Hx Open Heart Surgery: Yes (CABG x2) Other/Comment: breast Ca R lumphectomy - ANESTHESIA Hx Anesthesia: Yes Hx Anesthesia Reactions: No Hx Malignant Hyperthermia: No Meds Allergies/Adverse Reactions: Allergies Allergy/AdvReac Type Severity Reaction Status Date / Time No Known Allergies Allergy Verified 03/05/18 09:24 - Medications Medications: Current Medications Aspirin (Aspirin Chewable) 81 mg PO 0800 OZZY; Protocol Last Admin: 03/11/18 08:49 Dose: 81 mg Carvedilol (Coreg) 12.5 mg PO 0800,1800 OZZY; Protocol Last Admin: 03/11/18 17:19 Dose: 12.5 mg Dextrose (Dextrose 50% Inj) 50 ml IVP ONCE PRN; Protocol PRN Reason: Hypoglycemia Enoxaparin Sodium (Lovenox) 30 mg SC 0600 OZZY; Protocol Last Admin: 03/11/18 05:45 Dose: 30 mg Furosemide (Lasix) 20 mg IVP 0600,1800 OZZY; Protocol Last Admin: 03/11/18 17:38 Dose: 20 mg Piperacillin Sod/Tazobactam Sod (Zosyn 3.375 In Ns 100ml) 100 mls @ 25 mls/hr IVPB Q8 OZZY; Protocol Stop: 03/13/18 09:59 Last Admin: 03/11/18 13:10 Dose: 25 mls/hr Insulin Detemir (Levemir) 8 unit SC HS OZZY; Protocol Insulin Human Lispro (Humalog) 4 units SC AC OZZY Last Admin: 03/11/18 17:36 Dose: 4 units Insulin Human Lispro (Humalog Low) 0 units SC ACHS OZZY; Protocol Last Admin: 03/11/18 17:37 Dose: Not Given Isosorbide Mononitrate (Imdur) 60 mg PO 0630 OZZY; Protocol Last Admin: 03/11/18 05:46 Dose: 60 mg Levothyroxine Sodium (Synthroid) 100 mcg PO 0600 OZZY; Protocol Last Admin: 03/11/18 05:59 Dose: 100 mcg Lisinopril (Zestril) 2.5 mg PO DAILY OZZY; Protocol Last Admin: 03/11/18 09:47 Dose: 2.5 mg Pantoprazole Sodium (Protonix Ec Tab) 40 mg PO 0600 OZZY; Protocol Last Admin: 03/11/18 05:46 Dose: 40 mg Polyethylene Glycol (Miralax) 17 gm PO DAILY OZZY; Protocol Last Admin: 03/11/18 09:47 Dose: Not Given Physical Exam - Constitutional Appears: Non-toxic, No Acute Distress - Head Exam Head Exam: ATRAUMATIC, NORMOCEPHALIC - Eye Exam Eye Exam: EOMI, PERRL Pupil Exam: NORMAL ACCOMODATION, PERRL - ENT Exam ENT Exam: Mucous Membranes Moist, Normal External Ear Exam, TM's Normal Bilaterally - Neck Exam Neck exam: Positive for: Full Rom, Normal Inspection - Respiratory Exam Respiratory Exam: Clear to Auscultation Bilateral, NORMAL BREATHING PATTERN. absent: Rales, Rhonchi, Wheezes - Cardiovascular Exam Cardiovascular Exam: REGULAR RHYTHM, RRR, +S1, +S2 - GI/Abdominal Exam GI & Abdominal Exam: Normal Bowel Sounds, Soft. absent: Distended, Tenderness - Extremities Exam Extremities exam: Negative for: joint swelling, pedal edema - Neurological Exam Neurological exam: Alert, CN II-XII Intact, Oriented x3 - Psychiatric Exam Psychiatric exam: Normal Affect, Normal Mood - Skin Skin Exam: Intact, Normal Color Results - Vital Signs Recent Vital Signs: Last Vital Signs Temp 98.2 F 03/11/18 16:00 Pulse 68 03/11/18 16:00 Resp 18 03/11/18 16:00 BP 135/77 03/11/18 17:38 Pulse Ox 93 L 03/11/18 16:00 - Labs Labs: Laboratory Results - last 24 hr 03/11/18 03/11/18 03/11/18 05:50 11:54 17:23 POC Glucose (mg/dL) 199 H 195 H 339 H Assessment & Plan - Assessment and Plan (Free Text) Assessment: 82 y old female, PMhx HTN, HLD, CAD s/p CABG x 2, DM2, hypothyroidism, and breast ca s/p lumpectomy of L breast in remission, who presented with DKA, NSTEMI, new T wave inversions and RBBB on EKG on admission. The patient also had UTI with E. coli. Started on Zosyn for antibiotic coverage. Blood cultures negative for [address] showing ascites but no abscess. Continue on Zosyn IV for UTI with E. coli and Corynebacterium. Supportive care. Now in Transitional care. Thank you for allowing me to participate in the care of the patient, we will follow with you.
--- NOTE | 2018-03-11 19:54 | PN ---
DATE: 03/11/2018 ENDOCRINOLOGY FOLLOWUP NOTE LOCATION: [facility] room 327. SUBJECTIVE: This is an 82-year-old female with recent uncontrolled type 2 insulin-requiring diabetes, now being followed closely for metabolic management. She presented here with diabetic ketoacidosis and dehydration and received vigorous IV hydration and intensive insulin therapy and has since then improved clinically and metabolically as noted thereof. Her glycemic levels overnight have ranged from 195 to 199 mg/dL. LABORATORY DATA: Her latest chemistries are pending at this time. ASSESSMENT: This is an 82-year-old female with uncontrolled and decompensated type 2 insulin-requiring diabetes with extremes of glycemic fluctuations related to the variability of her oral intake as noted thereof. PLAN OF MANAGEMENT: We will continue the modified basal and bolus insulin regimen given at a very low dose of Humalog at 4 units subcu t.i.d. before meals as ordered. We will continue also the basal insulin given as Levemir at 8 units subcu at bedtime daily as given. We will titrate incrementally as indicated to optimize metabolic control. We will follow and advise accordingly. Myrtle Moon MD
[2018-03-12] MEDS: Piperacillin/Tazobact 3.375 gm 100 ML IVPB SCH ×3 (05:40→21:47)
[2018-03-12] MEDS: Levothyroxine 100 MCG TAB PO SCH (05:41)
[2018-03-12] MEDS: Pantoprazole 40 mg EC Tab PO SCH (05:41)
[2018-03-12] MEDS: Enoxaparin 30 mg Syringe SC SCH (05:41)
[2018-03-12] MEDS: Insulin Lispro 1 UNITS/0.01 ML SC SCH ×3 (06:49→17:42)
[2018-03-12] MEDS: Insulin Lispro (humaLOG) LOW Coverage SC SCH ×4 (06:50→21:45)
[2018-03-12 07:27] LABS: T4 6.7 ug/dL (5.5-11.0)
[2018-03-12 07:33] LABS: ALBUMIN 2.7 g/dL (3.0-4.8); ALT/SGPT 82 U/L (7-56); AST/SGOT 45 U/L (14-36); BLOOD UREA NITROGEN 11 mg/dL (7-21); CALCIUM 8.1 mg/dL (8.4-10.5); GFR NON-AFRICAN AMERICAN > 60
[2018-03-12] MEDS ORDERED: Insulin Detemir 100 units/ml Vial (Levemir) SC SCH (07:37)
[2018-03-12] MEDS ORDERED: Potassium Chloride 20 mEq ER Tab PO STA (07:38)
[2018-03-12] MEDS: POLYETHYLENE GLYCOL 3350 17 GM/Dose PACKET PO SCH (10:06)
[2018-03-12] MEDS ORDERED: Potassium Chloride 20 mEq ER Tab PO ONE (12:00)
--- NOTE | 2018-03-12 13:53 | CP.PCM.PN ---
Subjective - Date & Time of Evaluation Date of Evaluation: 03/12/18 Time of Evaluation: 13:00 - Subjective Subjective: Infectious Disease Follow Up: March 12, 2018 82 yo female found unconscious by her daughter at patient's home. Brought to [facility] for medical care and found to have Lactic acid of 7.6 on admission and procalcitonin of 4.12. The patient is currently awake and alert. Cultures of the urine with E. coli and cultures of the chest with Corynebacterium. The patient has received Zosyn IV and Vancomycin IV for antibiotic treatment. Patient making no complaints at this time. Brought to Transitional Care. Objective - Vital Signs/Intake and Output Vital Signs (last 24 hours): Temp Pulse Resp BP Pulse Ox 98.2 F 67 18 132/90 93 L 03/11/18 16:00 03/12/18 08:12 03/11/18 16:00 03/12/18 10:07 03/11/18 16:00 - Medications Medications: Current Medications Aspirin (Aspirin Chewable) 81 mg PO 0800 OZZY; Protocol Last Admin: 03/12/18 08:12 Dose: 81 mg Carvedilol (Coreg) 12.5 mg PO 0800,1800 OZZY; Protocol Last Admin: 03/12/18 08:12 Dose: 12.5 mg Dextrose (Dextrose 50% Inj) 50 ml IVP ONCE PRN; Protocol PRN Reason: Hypoglycemia Enoxaparin Sodium (Lovenox) 30 mg SC 0600 OZZY; Protocol Last Admin: 03/12/18 05:41 Dose: 30 mg Furosemide (Lasix) 20 mg IVP 0600,1800 OZZY; Protocol Last Admin: 03/12/18 05:43 Dose: 20 mg Piperacillin Sod/Tazobactam Sod (Zosyn 3.375 In Ns 100ml) 100 mls @ 25 mls/hr IVPB Q8 OZZY; Protocol Stop: 03/13/18 09:59 Last Admin: 03/12/18 05:40 Dose: 25 mls/hr Insulin Detemir (Levemir) 10 unit SC HS OZZY; Protocol Insulin Human Lispro (Humalog) 4 units SC AC OZZY Last Admin: 03/12/18 12:07 Dose: Not Given Insulin Human Lispro (Humalog Low) 0 units SC ACHS OZZY; Protocol Last Admin: 03/12/18 12:08 Dose: Not Given Isosorbide Mononitrate (Imdur) 60 mg PO 0630 OZZY; Protocol Last Admin: 03/12/18 05:44 Dose: 60 mg Levothyroxine Sodium (Synthroid) 100 mcg PO 0600 OZZY; Protocol Last Admin: 03/12/18 05:41 Dose: 100 mcg Lisinopril (Zestril) 2.5 mg PO DAILY [facility]; Protocol Last Admin: 03/12/18 10:07 Dose: 2.5 mg Pantoprazole Sodium (Protonix Ec Tab) 40 mg PO 0600 [facility]; Protocol Last Admin: 03/12/18 05:41 Dose: 40 mg Polyethylene Glycol (Miralax) 17 gm PO DAILY OZZY; Protocol Last Admin: 03/12/18 10:06 Dose: Not Given - Labs Labs: 03/12/18 06:00 - Constitutional Appears: Non-toxic, No Acute Distress - Head Exam Head Exam: ATRAUMATIC, NORMOCEPHALIC - Eye Exam Eye Exam: EOMI, PERRL Pupil Exam: NORMAL ACCOMODATION, PERRL - ENT Exam ENT Exam: Mucous Membranes Moist, Normal External Ear Exam, TM's Normal Bilaterally - Neck Exam Neck Exam: Full ROM, Normal Inspection - Respiratory Exam Respiratory Exam: Clear to Ausculation Bilateral, NORMAL BREATHING PATTERN. absent: Rales, Rhonchi, Wheezes - Cardiovascular Exam Cardiovascular Exam: REGULAR RHYTHM, RRR, +S1, +S2 - GI/Abdominal Exam GI & Abdominal Exam: Soft, Normal Bowel Sounds. absent: Distended, Tenderness - Extremities Exam Extremities Exam: Full ROM, Normal Inspection - Neurological Exam Neurological Exam: Alert, Awake, CN II-XII Intact, Oriented x3 - Psychiatric Exam Psychiatric exam: Normal Affect, Normal Mood - Skin Skin Exam: Intact, Normal Color Assessment and Plan - Assessment and Plan (Free Text) Assessment: 82 y old female, PMhx HTN, HLD, CAD s/p CABG x 2, DM2, hypothyroidism, and breast ca s/p lumpectomy of L breast in remission, who presented with DKA, NSTEMI, new T wave inversions and RBBB on EKG on admission. The patient also had UTI with E. coli. Started on Zosyn for antibiotic coverage. Blood cultures negative for [address] showing ascites but no abscess. Continue on Zosyn IV for UTI with E. coli and Corynebacterium. Supportive care. Now in Transitional care. Thank you for allowing me to participate in the care of the patient, we will follow with you.
--- NOTE | 2018-03-12 19:43 | PN ---
DATE: 03/12/2018 ENDO FOLLOW UP NOTE LOCATION: Room 327, [facility]. SUBJECTIVE: This is an 82-year-old female with recent uncontrolled type 2 insulin-requiring diabetes, presenting initially with diabetic ketoacidosis and dehydration and has now improved clinically and metabolically as noted thereof. She has been transferred now to [facility] for ongoing physical therapy because of recent deconditioning as noted. Her glycemic levels are fluctuating because of the variability of her oral intake as noted. Her glucose levels overnight have ranged from 98 to 239 mg/dL. It was 315 at bedtime last night. Her chemistry showed a BUN of 11, sodium 133, potassium 3.1, chloride 97, CO2 32, glucose 203 and creatinine 0.8. Her repeat thyroid study showed a T4 or thyroxine level of 6.7 with a TSH of 14.30. ASSESSMENT: This is an 82-year-old female with uncontrolled and decompensated type 2 insulin-requiring diabetes with extremes of glycemic fluctuations from symptomatic hypoglycemia to hyperglycemic accelerations because of the viability of her oral intake. She also has overt early hypothyroidism related to a subtherapeutic hormonal replacement therapy. PLAN OF MANAGEMENT: We will modify once again her levothyroxine and increase the dosing to 125 mcg once daily in the morning as ordered. We will also titrate and adjust her basal and bolus insulin regimen to optimize metabolic control. We will increase the Levemir given as basal insulin to 14 units subcutaneously at bedtime daily to start tonight. We will continue the Humalog given as 4 units subcutaneously t.i.d. before meals as ordered. We will continue the modified low-dose correction scale using Humalog insulin as ordered. We will obtain serial chemistries and supplement accordingly as needed. We will also obtain serial thyroid studies and titrate her dose regimen accordingly. We will follow. Myrtle Moon MD
[2018-03-12] MEDS: Insulin Detemir 100 units/ml Vial (Levemir) SC SCH (21:45)
[2018-03-13] MEDS: Pantoprazole 40 mg EC Tab PO SCH (05:37)
[2018-03-13] MEDS: Enoxaparin 30 mg Syringe SC SCH (05:38)
[2018-03-13] MEDS: Piperacillin/Tazobact 3.375 gm 100 ML IVPB SCH (05:38)
[2018-03-13] MEDS: Insulin Lispro (humaLOG) LOW Coverage SC SCH ×4 (06:57→21:29)
[2018-03-13] MEDS: Insulin Lispro 1 UNITS/0.01 ML SC SCH ×3 (06:57→17:23)
[2018-03-13 07:05] LABS: BASO # 0.04 K/mm3 (0.0-2.0); BASO % 0.8 % (0.0-3.0); EOS # 0.2 (0.0-0.7); EOS % 3.8 % (1.5-5.0); GRAN # 2.51 (1.4-6.5); GRAN % 50.9 % (50.0-68.0); HEMOGLOBIN 10.8 g/dL (12.0-16.0); LYMPH # 1.3 (1.2-3.4); LYMPH % 26.1 % (22.0-35.0); MEAN CELL VOLUME 92.6 fl (80.0-105.0); MEAN CORPUSCULAR HEMOGLOBIN 30.7 pg (25.0-35.0); MEAN CORPUSCULAR HGB CONC 33.1 g/dl (31.0-37.0); MEAN PLATELET VOLUME 9.3 fl (7.0-11.0); MONO # 0.9 (0.1-0.6); MONO % 18.4 % (1.0-6.0); RBC 3.52 10^6/uL (3.5-6.1); RED CELL DISTRIBUTION WIDTH 14.7 % (11.5-14.5); WHITE BLOOD COUNT 4.9 10^3/uL (4.5-11.0)
[2018-03-13] MEDS ORDERED: Levothyroxine 125 MCG TAB PO SCH (07:30)
[2018-03-13 07:41] LABS: ALB/GLOB RATIO 1.1 (1.1-1.8); ALBUMIN 3.1 g/dL (3.0-4.8); ALT/SGPT 77 U/L (7-56); AST/SGOT 45 U/L (14-36); BLOOD UREA NITROGEN 13 mg/dL (7-21); CALCIUM 8.6 mg/dL (8.4-10.5); GFR NON-AFRICAN AMERICAN > 60
[2018-03-13] MEDS: POLYETHYLENE GLYCOL 3350 17 GM/Dose PACKET PO SCH (10:35)
--- NOTE | 2018-03-13 11:19 | RAD ---
Date of service: 03/13/2018 HISTORY: Shortness of breath. COMPARISON: 01/08/2018. FINDINGS: LUNGS: Persistent lower lobe consolidative changes. PLEURA: Stable bilateral pleural effusions. CARDIOVASCULAR: Atherosclerotic calcifications identified primarily aortic arch. No significant interval change compared to the prior examination(s). OSSEOUS STRUCTURES: No significant abnormalities. VISUALIZED UPPER ABDOMEN: Normal. OTHER FINDINGS: None. IMPRESSION: Stable bilateral infiltrates/pleural effusions. No significant interval change compared to the prior examination(s).
--- NOTE | 2018-03-13 13:24 | PN ---
DATE: 03/13/2018 ENDOCRINOLOGY FOLLOWUP NOTE LOCATION: Room [address]. SUBJECTIVE: This is an 82-year-old female with recent uncontrolled type 2 insulin-requiring diabetes, previously admitted to the ICU with DKA and dehydration and has since then improved clinically and metabolically as noted thereof. However, her oral intake remains variable with suboptimal meal portions as noted. Her glucose levels overnight have ranged from 90-259 mg/dL. Her bedtime glucose was 365 as noted. LABORATORY DATA: The chemistries today showed a BUN of 13, sodium 135, potassium 3.6, chloride 95, CO2 of 35, glucose 103 and creatinine 0.8. ASSESSMENT AND PLAN: So at this time, we will continue the same basal and bolus insulin regimen to allow for dose equilibration and keep her on the Levemir given as 14 units subcutaneously at bedtime daily as modified last night. We will continue also the Humalog given as 4 units subcutaneously t.i.d. before meals as ordered. Moreover, we will continue the modified and higher dosing of the Synthroid given as 125 mcg once daily because of persistent hypothyroidism. We will obtain serial thyroid studies and titrate her dose regimen accordingly. We will follow. Myrtle Moon MD
--- NOTE | 2018-03-13 15:11 | CP.PCM.PN ---
<Timur Shannon - Last Filed: 03/13/18 15:07> Subjective - Date & Time of Evaluation Date of Evaluation: 03/13/18 Time of Evaluation: 15:07 - Subjective Subjective: Timur Shannon DO PGY1 - Internal Medicine [place] Supervisor - Medicine Progress Note Patient was seen and examined at bedside this morning at bedside. No acute events overnight. Patient was tolerating diet well; no further complaints voiced. Reports she is breathing well. Denies SOB, CP, Abd Pain, N/v/d/c, urinary complaints. Objective - Vital Signs/Intake and Output Vital Signs (last 24 hours): Temp Pulse Resp BP Pulse Ox 98.4 F 64 20 142/60 95 03/12/18 16:00 03/12/18 17:41 03/12/18 16:00 03/13/18 10:36 03/12/18 16:00 Intake and Output: 03/13/18 03/13/18 06:59 18:59 Intake Total 500 Output Total 1075 Balance -575 - Medications Medications: Current Medications Aspirin (Aspirin Chewable) 81 mg PO 0800 OZZY; Protocol Last Admin: 03/13/18 08:46 Dose: 81 mg Carvedilol (Coreg) 12.5 mg PO 0800,1800 OZZY; Protocol Last Admin: 03/13/18 08:47 Dose: 12.5 mg Dextrose (Dextrose 50% Inj) 50 ml IVP ONCE PRN; Protocol PRN Reason: Hypoglycemia Enoxaparin Sodium (Lovenox) 30 mg SC 0600 OZZY; Protocol Last Admin: 03/13/18 05:38 Dose: 30 mg Furosemide (Lasix) 20 mg IVP 0600,1800 OZZY; Protocol Last Admin: 03/13/18 05:36 Dose: Not Given Insulin Detemir (Levemir) 14 unit SC HS OZZY; Protocol Last Admin: 03/12/18 21:45 Dose: 14 units Insulin Human Lispro (Humalog) 4 units SC AC OZZY Last Admin: 03/13/18 11:02 Dose: Not Given Insulin Human Lispro (Humalog Low) 0 units SC ACHS OZZY; Protocol Last Admin: 03/13/18 11:02 Dose: Not Given Isosorbide Mononitrate (Imdur) 60 mg PO 0630 OZZY; Protocol Last Admin: 03/13/18 05:37 Dose: 60 mg Levothyroxine Sodium (Synthroid) 125 mcg PO 0600 OZZY; Protocol Lisinopril (Zestril) 2.5 mg PO DAILY OZZY; Protocol Last Admin: 03/13/18 10:36 Dose: 2.5 mg Pantoprazole Sodium (Protonix Ec Tab) 40 mg PO 0600 OZZY; Protocol Last Admin: 03/13/18 05:37 Dose: 40 mg Polyethylene Glycol (Miralax) 17 gm PO DAILY OZZY; Protocol Last Admin: 03/13/18 10:35 Dose: Not Given - Labs Labs: 03/13/18 06:00 03/13/18 06:00 Physical Exam - Constitutional Appears: Well, resting in bed, chronically ill, no distress - Head Exam Head Exam: ATRAUMATIC, NORMOCEPHALIC - Eye Exam Eye Exam: EOMI - ENT Exam ENT Exam: Mucous Membranes Moist - Respiratory Exam Respiratory Exam: Diminished breath sounds bilaterally; - Cardiovascular Exam Cardiovascular Exam: REGULAR RHYTHM - GI/Abdominal Exam GI & Abdominal Exam: Soft. absent: Distended, Guarding, Tenderness - Extremities Exam Extremities exam: Positive for: pedal pulses present. Negative for: calf tenderness, tenderness - Neurological Exam Neurological exam: Alert, Oriented x3 - Psychiatric Exam Psychiatric exam: Normal Affect, Normal Mood - Skin Skin Exam: Dry, Intact, Normal Color, Warm Assessment and Plan - Assessment and Plan (Free Text) Assessment: 82 y old female, PMhx HTN, HLD, CAD s/p CABG x 2, DM2, hypothyroidism, and breast ca s/p lumpectomy of L breast in remission, who presented with DKA, NSTEMI, new T wave inversions and RBBB on EKG on hospital admission, discharged to TCU for further PT and strengthening. Plan: Bilateral pleural effusions ML 2/2 HFrEF EF 43% 02/2018 C/w Lasix 20 Q12 C/w Coreg 12.5 BID C/w Lisinopril 2.5 QD CXR 03/13 - Read as stable bilateral infiltrate/ pleural effusion; no significant interval change Monitor IO Encourage OOBTC Cardiology following, recommendations appreciated. Toxic metabolic encephalopathy - resolving Appears to be at baseline at this time; AAO2? Head CT 03/05 per radiologist showed no evidence of acute intracranial hemorrhage or mass effect or midline shift, moderate atrophy and mild to moderate chronic microvascular white matter ischemic changes Likely secondary to multifactorial issues including UTI, DKA, NSTEMI, age related cognitive decline Reorient as necessary DKA (Resolved) / Diabetes -Type 1 insulin dependent DM Hb A1c 9.7 Insulin / Hypoglycemic Agents as per Endocrinology Accuchecks ACHS Endocrinology following, appreciate recs NSTEMI with hemodynamic instability (resolved) Cardiology following, recommendations appreciated no longer on Heparin drip per cardiology Dr. Sorto Troponins downtrended Continue with Coreg and Lisinopril as above Continue ASA Patient not a candidate for current coronary intervention or angiography per cardiology HTN C/w Isosorbide Mononitrate UTI - Resolved Patient Afebrile and Asymptomatic Leukocytosis resolved Urine culture positive for Escherichia coli Course of Zosyn completed repeat labs Q3D Transaminitis Likely ischemic hepatitis secondary to hypotension LFTs improving GI following, recommendations appreciated Abdominal US 03/06 - per radiologist showed interval grossly abnormal appearing gallbladder with mural thickening in [place] complicated pericholecystic fluid/phlegmon potentially reflecting abscess, no sonographic evidence of biliary tree dilatation however acalculous cholecystitis is in question, mild to moderate abdominal ascites, pancreas completely obscured by overlying bowel gas CT abdomen and pelvis 03/08 - per radiologist showed no evidence of right upper quadrant abscess, large bilateral pleural effusions with compressive atelectasis, pelvic ascites with anasarca, colonic diverticulosis, leiomyomatous uterus Hypokalemia Repleted Continue to monitor Repeat labs Q3D Anemia FOBT positive on admission H&H stable GI following, recommendations appreciated Continue Protonix Continue to monitor CBC Q3D Hypothyroidism - Continue Synthroid Endocrinology following, appreciate recs Sternotomy wound Continue local wound care Per patient, has been there for about 2 years Wound culture positive for corynebacterium Chronic Constipation C/w Miralax QD PPX: GI/DVT prophylaxis: Protonix/Heparin Advanced directive. Patient is a DNR/DNI Dispo: Needs further work with PT to be safe to go home, may need VNS/homemaker to ensure proper insulin regimen enforcement Patient was seen, examined, and discussed w/ attending physician Dr. Katarina Shannon DO PGY1 - Internal Medicine [place] Supervisor - Medicine Progress Note <Katarina Shannon R - Last Filed: 03/14/18 18:11> Objective - Vital Signs/Intake and Output Vital Signs (last 24 hours): Temp Pulse Resp BP Pulse Ox 98.7 F 98 H 18 144/78 94 L 03/14/18 16:00 03/14/18 16:00 03/14/18 16:00 03/14/18 17:50 03/14/18 16:00 - Medications Medications: Current Medications Aspirin (Aspirin Chewable) 81 mg PO 0800 OZZY; Protocol Last Admin: 03/14/18 08:11 Dose: 81 mg Carvedilol (Coreg) 12.5 mg PO 0800,1800 OZYZ; Protocol Last Admin: 03/14/18 17:50 Dose: 12.5 mg Dextrose (Dextrose 50% Inj) 50 ml IVP ONCE PRN; Protocol PRN Reason: Hypoglycemia Enoxaparin Sodium (Lovenox) 30 mg SC 0600 OZZY; Protocol Last Admin: 03/14/18 05:23 Dose: 30 mg Furosemide (Lasix) 20 mg IVP 0600,1800 OZZY; Protocol Last Admin: 03/14/18 17:50 Dose: 20 mg Insulin Detemir (Levemir) 14 unit SC HS OZZY; Protocol Last Admin: 03/13/18 21:30 Dose: 14 units Insulin Human Lispro (Humalog) 4 units SC AC OZZY Last Admin: 03/14/18 17:38 Dose: 4 units Insulin Human Lispro (Humalog Low) 0 units SC ACHS OZZY; Protocol Last Admin: 03/14/18 16:53 Dose: Not Given Isosorbide Mononitrate (Imdur) 60 mg PO 0630 OZZY; Protocol Last Admin: 03/14/18 05:29 Dose: 60 mg Levothyroxine Sodium (Synthroid) 125 mcg PO 0600 OZZY; Protocol Last Admin: 03/14/18 05:23 Dose: 125 mcg Lisinopril (Zestril) 2.5 mg PO DAILY OZZY; Protocol Last Admin: 03/14/18 09:48 Dose: 2.5 mg Pantoprazole Sodium (Protonix Ec Tab) 40 mg PO 0600 OZZY; Protocol Last Admin: 03/14/18 05:23 Dose: 40 mg Polyethylene Glycol (Miralax) 17 gm PO DAILY OZZY; Protocol Last Admin: 03/14/18 09:55 Dose: Not Given - Labs Labs: 03/13/18 06:00 03/13/18 06:00 Attending/Attestation - Attestation I have personally seen and examined this patient.: Yes I have fully participated in the care of the patient.: Yes I have reviewed all pertinent clinical information, including history, physical exam and plan: Yes Notes (Text): Patient seen and examined by me with resident at 9:05 AM on 03/13/18. Case including HPI, physical exam, and assessment and plan discussed with resident. Agree with above with following additions/corrections. Patient is an 82-year-old female past medical history significant for hypertension, hyperlipidemia, type 1 diabetes, breast cancer status post lumpectomy, and coronary artery disease status post CABG that presented to the emergency room with confusion and altered mental status on 03/05/18. Patient was transferred to TCU on 03/10/18. Patient states she is feeling a little better. Feels tired. States she ambulated with physical therapy a couple of days ago. Denies any shortness of breath. No chest pain or palpitations. No headaches or dizziness. No fevers or chills. No nausea, vomiting, or abdominal pain. No dysuria. Patient states she is having bowel movement. Physical exam: General: Awake and alert lying in bed in no acute distress HEENT: Normocephalic, atraumatic. Extraocular muscles intact, pupils equal and reactive, no scleral icterus. Oropharynx is pink and moist. Neck is supple. Cardiovascular: Regular rhythm. Normal S1 and S2. Positive systolic murmur. No rubs or gallops appreciated Pulmonary: Normal respiratory effort. Decreased breath sounds bilaterally. No rhonchi, rales, or wheezing appreciated. Gastrointestinal: Soft, nondistended. Nontender. Positive bowel sounds all 4 quadrants. No guarding. Musculoskeletal: Moves all extremities. Trace lower extremity edema appreciated. No calf tenderness. Central nervous system: AAO x 2. Not oriented to time. Dermatologic: Skin warm and dry.Anterior chest wound with exposure of sternotomy wire; dressing clean, dry, and intact. No signs of infection (has been there for 2 years per patient). Assessment and plan: Patient is an 82-year-old female past medical history significant for hypertension, hyperlipidemia, type 2 diabetes, breast cancer status post lumpectomy, and coronary artery disease status post CABG that presented to the emergency room with confusion and altered mental status on 02/20 07/08. Patient treated and transferred to TCU on 03/10/18 for gait instability. 1. Gait instability. Continue physical therapy as tolerated. Continue fall precautions. 2. Bilateral pleural effusions. Likey secondary to acute systolic CHF likely secondary to NSTEMI. Continue Lasix 20mg IV q12hrs. Continue to monitor ins and outs. Chest xray on03/13/18 per radiologist shows stable bilateral infiltrat es/pleural effusions. Status post treatment with Zosyn. ID following, recommendations appreciated. 2d echo showed moderately reduced LV function, EF 43%. Cardiology following, recommendations appreciated. 3. Toxic metabolic encephalopathy. Resolved. AAO x 2. Likely multifactorial secondary to UTI, DKA, NSTEMI. Head CT per radiologist showed no evidence of acute intracranial hemorrhage or mass effect or midline shift, moderate atrophy and mild to moderate chronic microvascular white matter ischemic changes. 4. DKA. Resolved. Type 1 insulin dependent DM. Endocrinology following, recommendations appreciated. Continue insulin per endocrinology. Continue to monitor accuchecks. HgbA1C is 9.7. 5. NSTEMI. Cardiology following, recommendations appreciated. Continue with Coreg and Lisinopril. Continue Imdur. Continue ASA. Patient refused cardiac catheterization. 2d echo per creative consultant showed dilated left atrium, normal LV size, moderately reduced LV systolic function with segmental wall hypokinesis, moderate mitral regurgitation and tricuspid regurgitation, EF of approximately 43.1. 6. UTI. Urine culture positive for Escherichia coli. ID following, recommendations appreciated. Status post treatment with Zosyn 7. Transaminitis. Likely ischemic hepatitis secondary to hypotension. LFTs continue to downtrend. Abdominal ultrasound per radiologist showed interval grossly abnormal appearing gallbladder with mural thickening in [place] complicated pericholecystic fluid/phlegmon potentially reflecting abscess, no sonographic evidence of biliary tree dilatation however acalculous cholecystitis is in question, mild to moderate abdominal ascites, pancreas completely obscured by overlying bowel gas. CT abdomen and pelvis per radiologist showed no evidence of right upper quadrant abscess, large bilateral pleural effusions with compressive atelectasis, pelvic ascites with anasarca, colonic diverticulosis, leiomyomatous uterus. 8. Anemia. FOBT positive. H&H stable. Patient was evaluated by GI. Continue Protonix. Continue to monitor CBC 9. Hypothyroidism. Continue Synthroid 10. Sternotomy wound. Continue local wound care. Wound culture positive for corynebacterium. Status post treatment with Zosyn. Patient will need outpatient follow-up with [facility] for removal of wire. 11. GI/DVT prophylaxis. Protonix/Lovenox 12. Advanced directive. Patient is a DNR/DNI. Case was discussed in detail with the patient regarding current diagnosis and treatment plan. All questions answered.
--- NOTE | 2018-03-13 17:21 | CP.PCM.PN ---
Subjective - Date & Time of Evaluation Date of Evaluation: 03/13/18 Time of Evaluation: 16:00 - Subjective Subjective: Infectious Disease Follow Up: March 13, 2018 82 yo female found unconscious by her daughter at patient's home. Brought to [facility] for medical care and found to have Lactic acid of 7.6 on admission and procalcitonin of 4.12. The patient is currently awake and alert. Cultures of the urine with E. coli and cultures of the chest with Corynebacterium. The patient has received Zosyn IV and Vancomycin IV for antibiotic treatment. Zosyn started on 03/05/2018. Day 8 of Zosyn. Patient making no complaints at this time. Brought to Transitional Care. Objective - Vital Signs/Intake and Output Vital Signs (last 24 hours): Temp Pulse Resp BP Pulse Ox 98.4 F 60 20 142/60 93 L 03/12/18 16:00 03/13/18 16:51 03/12/18 16:00 03/13/18 10:36 03/13/18 16:51 Intake and Output: 03/13/18 03/13/18 06:59 18:59 Intake Total 500 Output Total 1075 Balance -575 - Medications Medications: Current Medications Aspirin (Aspirin Chewable) 81 mg PO 0800 [facility]; Protocol Last Admin: 03/13/18 08:46 Dose: 81 mg Carvedilol (Coreg) 12.5 mg PO 0800,1800 [facility]; Protocol Last Admin: 03/13/18 08:47 Dose: 12.5 mg Dextrose (Dextrose 50% Inj) 50 ml IVP ONCE PRN; Protocol PRN Reason: Hypoglycemia Enoxaparin Sodium (Lovenox) 30 mg SC 0600 [facility]; Protocol Last Admin: 03/13/18 05:38 Dose: 30 mg Furosemide (Lasix) 20 mg IVP 0600,1800 [facility]; Protocol Last Admin: 03/13/18 05:36 Dose: Not Given Insulin Detemir (Levemir) 14 unit SC HS [facility]; Protocol Last Admin: 03/12/18 21:45 Dose: 14 units Insulin Human Lispro (Humalog) 4 units SC AC [facility] Last Admin: 03/13/18 11:02 Dose: Not Given Insulin Human Lispro (Humalog Low) 0 units SC ACHS [facility]; Protocol Last Admin: 03/13/18 11:02 Dose: Not Given Isosorbide Mononitrate (Imdur) 60 mg PO 0630 [facility]; Protocol Last Admin: 03/13/18 05:37 Dose: 60 mg Levothyroxine Sodium (Synthroid) 125 mcg PO 0600 [facility]; Protocol Lisinopril (Zestril) 2.5 mg PO DAILY [facility]; Protocol Last Admin: 03/13/18 10:36 Dose: 2.5 mg Pantoprazole Sodium (Protonix Ec Tab) 40 mg PO 0600 [facility]; Protocol Last Admin: 03/13/18 05:37 Dose: 40 mg Polyethylene Glycol (Miralax) 17 gm PO DAILY [facility]; Protocol Last Admin: 03/13/18 10:35 Dose: Not Given - Labs Labs: 03/13/18 06:00 03/13/18 06:00 - Constitutional Appears: Non-toxic, No Acute Distress - Head Exam Head Exam: ATRAUMATIC, NORMOCEPHALIC - Eye Exam Eye Exam: EOMI, PERRL Pupil Exam: NORMAL ACCOMODATION, PERRL - ENT Exam ENT Exam: Mucous Membranes Moist, Normal External Ear Exam, TM's Normal Bilaterally - Neck Exam Neck Exam: Full ROM, Normal Inspection - Respiratory Exam Respiratory Exam: Clear to Ausculation Bilateral, NORMAL BREATHING PATTERN. absent: Rales, Rhonchi, Wheezes - Cardiovascular Exam Cardiovascular Exam: REGULAR RHYTHM, RRR, +S1, +S2 - GI/Abdominal Exam GI & Abdominal Exam: Soft, Normal Bowel Sounds. absent: Distended, Tenderness - Extremities Exam Extremities Exam: Full ROM, Normal Inspection - Neurological Exam Neurological Exam: Alert, Awake, CN II-XII Intact, Oriented x3 - Psychiatric Exam Psychiatric exam: Normal Affect, Normal Mood - Skin Skin Exam: Intact, Normal Color Assessment and Plan - Assessment and Plan (Free Text) Assessment: 82 y old female, PMhx HTN, HLD, CAD s/p CABG x 2, DM2, hypothyroidism, and breast ca s/p lumpectomy of L breast in remission, who presented with DKA, NSTEMI, new T wave inversions and RBBB on EKG on admission. The patient also h ad UTI with E. coli. Started on Zosyn for antibiotic coverage. Blood cultures negative for [address] showing ascites but no abscess. Continue on Zosyn IV for UTI with E. coli and Corynebacterium. 7 to 10 days of total treatment for antibiotics. Day 8 of Zosyn. Can stop antibiotics at this point. Supportive care. Now in Transitional care. Thank you for allowing me to participate in the care of the patient, we will follow with you.
[2018-03-13] MEDS: Insulin Detemir 100 units/ml Vial (Levemir) SC SCH (21:30)
[2018-03-14] MEDS: Enoxaparin 30 mg Syringe SC SCH (05:23)
[2018-03-14] MEDS: Pantoprazole 40 mg EC Tab PO SCH (05:23)
[2018-03-14] MEDS: Levothyroxine 125 MCG TAB PO SCH (05:23)
[2018-03-14] MEDS: Insulin Lispro (humaLOG) LOW Coverage SC SCH ×4 (06:59→21:33)
[2018-03-14] MEDS: Insulin Lispro 1 UNITS/0.01 ML SC SCH ×3 (06:59→17:38)
[2018-03-14] MEDS: POLYETHYLENE GLYCOL 3350 17 GM/Dose PACKET PO SCH (09:55)
--- NOTE | 2018-03-14 14:05 | PN ---
ENDOCRINOLOGY FOLLOWUP NOTE DATE: 03/14/2018 LOCATION: [facility], room 327. SUBJECTIVE: This is an 82-year-old female with recent uncontrolled type 2 insulin-requiring diabetes presenting here with diabetic ketoacidosis and dehydration and has since then improved clinically and metabolically as noted thereof. Her oral intake, however, remains quite variable as per the nursing staff. Her glucose values overnight have ranged from 102-to 246 and 294 mg/dL. Her chemistry showed a BUN of 13, sodium 135, potassium 3.6, chloride 95, CO2 of 35, glucose 103 and creatinine 0.8. So at this time, we will continue the same basal and bolus insulin regimen to allow for dose equilibration and keep her on the Humalog given as 4 units t.i.d. before meals as ordered. We will continue the Levemir given as basal insulin at 14 units subcu at bedtime daily as given. As her oral intake improves, then we will titrate and advance her Humalog to a higher dose regimen as indicated. We will obtain serial chemistries and supplement accordingly needed. We will follow. Myrtle Moon MD
--- NOTE | 2018-03-14 17:09 | CP.PCM.PN ---
Subjective - Date & Time of Evaluation Date of Evaluation: 03/14/18 Time of Evaluation: 15:00 - Subjective Subjective: Infectious Disease Follow Up: March 14, 2018 82 yo female found unconscious by her daughter at patient's home. Brought to [facility] for medical care and found to have Lactic acid of 7.6 on admission and procalcitonin of 4.12. The patient is currently awake and alert. Cultures of the urine with E. coli and cultures of the chest with Corynebacterium. The patient has received Zosyn IV and Vancomycin IV for antibiotic treatment. Zosyn started on 03/05/2018. Zosyn completed. Patient making no complaints at this time. Brought to Transitional Care. Objective - Vital Signs/Intake and Output Vital Signs (last 24 hours): Temp Pulse Resp BP Pulse Ox 98.7 F 98 H 18 144/74 94 L 03/14/18 16:00 03/14/18 16:00 03/14/18 16:00 03/14/18 16:00 03/14/18 16:00 - Medications Medications: Current Medications Aspirin (Aspirin Chewable) 81 mg PO 0800 [facility]; Protocol Last Admin: 03/14/18 08:11 Dose: 81 mg Carvedilol (Coreg) 12.5 mg PO 0800,1800 [facility]; Protocol Last Admin: 03/14/18 08:11 Dose: 12.5 mg Dextrose (Dextrose 50% Inj) 50 ml IVP ONCE PRN; Protocol PRN Reason: Hypoglycemia Enoxaparin Sodium (Lovenox) 30 mg SC 0600 [facility]; Protocol Last Admin: 03/14/18 05:23 Dose: 30 mg Furosemide (Lasix) 20 mg IVP 0600,1800 [facility]; Protocol Last Admin: 03/14/18 05:23 Dose: 20 mg Insulin Detemir (Levemir) 14 unit SC HS [facility]; Protocol Last Admin: 03/13/18 21:30 Dose: 14 units Insulin Human Lispro (Humalog) 4 units SC AC [facility] Last Admin: 03/14/18 12:50 Dose: 4 units Insulin Human Lispro (Humalog Low) 0 units SC ACHS [facility]; Protocol Last Admin: 03/14/18 16:53 Dose: Not Given Isosorbide Mononitrate (Imdur) 60 mg PO 0630 [facility]; Protocol Last Admin: 12/23/18 05:29 Dose: 60 mg Levothyroxine Sodium (Synthroid) 125 mcg PO 0600 [facility]; Protocol Last Admin: 03/14/18 05:23 Dose: 125 mcg Lisinopril (Zestril) 2.5 mg PO DAILY [facility]; Protocol Last Admin: 03/14/18 09:48 Dose: 2.5 mg Pantoprazole Sodium (Protonix Ec Tab) 40 mg PO 0600 [facility]; Protocol Last Admin: 03/14/18 05:23 Dose: 40 mg Polyethylene Glycol (Miralax) 17 gm PO DAILY [facility]; Protocol Last Admin: 03/14/18 09:55 Dose: Not Given - Labs Labs: 03/13/18 06:00 03/13/18 06:00 - Constitutional Appears: Non-toxic, No Acute Distress, Chronically Ill - Head Exam Head Exam: ATRAUMATIC, NORMOCEPHALIC - Eye Exam Eye Exam: EOMI, PERRL Pupil Exam: NORMAL ACCOMODATION, PERRL - ENT Exam ENT Exam: Mucous Membranes Moist, Normal External Ear Exam, TM's Normal Bilaterally - Neck Exam Neck Exam: Full ROM, Normal Inspection - Respiratory Exam Respiratory Exam: Clear to Ausculation Bilateral, NORMAL BREATHING PATTERN. absent: Rales, Rhonchi, Wheezes - Cardiovascular Exam Cardiovascular Exam: REGULAR RHYTHM, RRR, +S1, +S2 - GI/Abdominal Exam GI & Abdominal Exam: Soft, Normal Bowel Sounds. absent: Distended, Tenderness - Extremities Exam Extremities Exam: Full ROM, Normal Inspection - Neurological Exam Neurological Exam: Alert, Awake, CN II-XII Intact, Oriented x3 - Psychiatric Exam Psychiatric exam: Normal Affect, Normal Mood - Skin Skin Exam: Intact, Normal Color Assessment and Plan - Assessment and Plan (Free Text) Assessment: 82 y old female, PMhx HTN, HLD, CAD s/p CABG x 2, DM2, hypothyroidism, and breast ca s/p lumpectomy of L breast in remission, who presented with DKA, NSTEMI, new T wave inversions and RBBB on EKG on admission. The patient also had UTI with E. coli. Started on Zosyn for antibiotic coverage. Blood cultures negative for [address] showing ascites but no abscess. Continue on Zosyn IV for UTI with E. coli and Corynebacterium. 7 to 10 days of total treatment for antibiotics. Zosyn completed. Supportive care. Now in Transitional care. Thank you for allowing me to participate in the care of the patient, we will follow with you.
[2018-03-14] MEDS: Insulin Detemir 100 units/ml Vial (Levemir) SC SCH (21:32)
[2018-03-15] MEDS: Pantoprazole 40 mg EC Tab PO SCH (05:16)
[2018-03-15] MEDS: Levothyroxine 125 MCG TAB PO SCH (05:16)
[2018-03-15] MEDS: Enoxaparin 30 mg Syringe SC SCH (05:17)
[2018-03-15] MEDS: Insulin Lispro 1 UNITS/0.01 ML SC SCH ×3 (07:37→17:30)
[2018-03-15] MEDS: Insulin Lispro (humaLOG) LOW Coverage SC SCH ×4 (07:37→21:28)
[2018-03-15] MEDS: POLYETHYLENE GLYCOL 3350 17 GM/Dose PACKET PO SCH (10:15)
--- NOTE | 2018-03-15 12:27 | CP.PCM.PN ---
<Nancy Gudino - Last Filed: 03/15/18 12:32> Subjective - Date & Time of Evaluation Date of Evaluation: 03/15/18 Time of Evaluation: 07:45 - Subjective Subjective: Internal medicine progress note for Demetrio Patient seen and examined this am at bedside. LAILAEO per nursing. Patient states she is feeling well and has no complaints at thsi time. She states she has been able to ambulate with PT and denies any SOB with activity or at rest. She otherwise denies DINH, f/c, SOB, CP, abdominal pain, n/v, dysuria, stool changes and extremity pain/weakness. Objective - Vital Signs/Intake and Output Vital Signs (last 24 hours): Temp Pulse Resp BP Pulse Ox 98.7 F 60 18 147/70 94 L 03/14/18 16:00 03/15/18 10:18 03/14/18 16:00 03/15/18 10:18 03/14/18 16:00 Intake and Output: 03/15/18 03/15/18 06:59 18:59 Intake Total 150 Output Total 350 Balance -200 - Medications Medications: Current Medications Aspirin (Aspirin Chewable) 81 mg PO 0800 [facility]; Protocol Last Admin: 03/15/18 08:20 Dose: 81 mg Carvedilol (Coreg) 12.5 mg PO 0800,1800 [facility]; Protocol Last Admin: 03/15/18 08:20 Dose: 12.5 mg Dextrose (Dextrose 50% Inj) 50 ml IVP ONCE PRN; Protocol PRN Reason: Hypoglycemia Enoxaparin Sodium (Lovenox) 30 mg SC 0600 [facility]; Protocol Last Admin: 03/15/18 05:17 Dose: 30 mg Furosemide (Lasix) 40 mg PO DAILY [facility] Last Admin: 03/15/18 10:17 Dose: 40 mg Insulin Detemir (Levemir) 14 unit SC HS [facility]; Protocol Last Admin: 03/14/18 21:32 Dose: 14 units Insulin Human Lispro (Humalog) 4 units SC AC [facility] Last Admin: 03/15/18 07:37 Dose: Not Given Insulin Human Lispro (Humalog Low) 0 units SC ACHS [facility]; Protocol Last Admin: 03/15/18 07:37 Dose: Not Given Isosorbide Mononitrate (Imdur) 60 mg PO 0630 [facility]; Protocol Last Admin: 03/15/18 05:30 Dose: 60 mg Levothyroxine Sodium (Synthroid) 125 mcg PO 0600 [facility]; Protocol Last Admin: 03/15/18 05:16 Dose: 125 mcg Lisinopril (Zestril) 2.5 mg PO DAILY [facility]; Protocol Last Admin: 03/15/18 10:18 Dose: 2.5 mg Pantoprazole Sodium (Protonix Ec Tab) 40 mg PO 0600 [facility]; Protocol Last Admin: 03/15/18 05:16 Dose: 40 mg Polyethylene Glycol (Miralax) 17 gm PO DAILY [facility]; Protocol Last Admin: 03/15/18 10:15 Dose: Not Given - Labs Labs: 03/13/18 06:00 03/13/18 06:00 - Constitutional Appears: Well, Non-toxic, No Acute Distress - Head Exam Head Exam: ATRAUMATIC, NORMOCEPHALIC - Eye Exam Eye Exam: EOMI - ENT Exam ENT Exam: Mucous Membranes Moist - Respiratory Exam Respiratory Exam: NORMAL BREATHING PATTERN - Cardiovascular Exam Cardiovascular Exam: REGULAR RHYTHM - GI/Abdominal Exam GI & Abdominal Exam: Soft. absent: Distended, Guarding, Tenderness - Extremities Exam Extremities Exam: absent: Calf Tenderness, Pedal Edema - Neurological Exam Neurological Exam: Alert, Awake. absent: Oriented x3 (oriented to person and placed but not time) - Psychiatric Exam Psychiatric exam: Normal Affect, Normal Mood - Skin Skin Exam: Dry, Intact, Normal Color, Warm Assessment and Plan - Assessment and Plan (Free Text) Assessment: 82 yr old female admitted for DKA with subsequent dx of NSTEMI and UTI, bilateral pleural effusions as sequelae of new onset heart failure d/t NSTEMI Plan: Bilateral pleural effusions - Likely 2/2 to acute systolic CHF lafter NSTEMI - Lasix 40 mg PO daily - Monitor ins and outs - Will need repeat chest xray 03/16 - Encourage OOBTC and ambulation with PT - ECHO: moderately reduced LV function, EF 43% - Cardiology following, recommendations appreciated. Toxic metabolic encephalopathy - May be at baseline now. AAO x 2 - Likely secondary to multifactorial issues including UTI, DKA, NSTEMI, age related cognitive decline (most likely) - Continue to treat underlying causes - Continue supportive care -Head CT per radiologist showed no evidence of acute intracranial hemorrhage or mass effect or midline shift, moderate atrophy and mild to moderate chronic microvascular white matter ischemic changes DKA (Resolved) -Type 1 insulin dependent DM -Endocrinology following, recommendations appreciated -Continue insulin per endocrinology -Hypoglycemia improved -Continue accuchecks -HgbA1C 9.7 NSTEMI with hemodynamic instability (resolved) - Cardiology following, recommendations appreciated - no longer on Heparin drip per cardiology Dr. Sorto - Troponins downtrended - Continue with Coreg and Lisinopril - Continue ASA - Patient not a candidate for current coronary intervention or angiography per cardiology UTI (resolved) - Urine culture positive for Escherichia coli - Patient completed Zosyn - Patient afebrile - Leukocytosis resolved - repeat labs Q3D - ID consulted , recs appreciated Transaminitis (improving) - Likely ischemic hepatitis secondary to hypotension - LFTs downtrending - GI following, recommendations appreciated - Abdominal US per radiologist showed interval grossly abnormal appearing gallbladder with mural thickening in [place] complicated pericholecystic fluid/phlegmon potentially reflecting abscess, no sonographic evidence of biliary tree dilatation however acalculous cholecystitis is in question, mild to moderate abdominal ascites, pancreas completely obscured by overlying bowel gas - CT abdomen and pelvis per radiologist showed no evidence of right upper quadrant abscess, large bilateral pleural effusions with compressive atelectasis, pelvic ascites with anasarca, colonic diverticulosis, leiomyomatous uterus Hypokalemia (resolved) - Continue to monitor - repeat labs Q3D Anemia - FOBT positive on admission - H&H stable - GI following, recommendations appreciated - Continue Protonix - Continue to monitor CBC Q3D Hypothyroidism - Continue Synthroid Sternotomy wound - Continue local wound care - Per patient, has been there for about 2 years - Wound culture positive for corynebacterium - will need follow up with her surgeon at [facility] for correction PPX: GI/DVT prophylaxis: Protonix/Heparin Advanced directive. Patient is a DNR/DNI Dispo: Needs further work with PT to be safe to go home, may need VNS/homemaker to ensure proper insulin regimen enforcement Patient seen examined and discussed with Dr. Demetrio Gudino, PGY 1 <Sadia Atkinson - Last Filed: 03/15/18 15:54> Objective - Vital Signs/Intake and Output Vital Signs (last 24 hours): Temp Pulse Resp BP Pulse Ox 98.1 F 60 16 147/70 94 L 03/15/18 10:00 03/15/18 10:18 03/15/18 10:00 03/15/18 10:18 03/15/18 10:00 Intake and Output: 03/15/18 03/15/18 06:59 18:59 Intake Total 150 Output Total 350 Balance -200 - Medications Medications: Current Medications Aspirin (Aspirin Chewable) 81 mg PO 0800 [facility]; Protocol Last Admin: 03/15/18 08:20 Dose: 81 mg Carvedilol (Coreg) 12.5 mg PO 0800,1800 [facility]; Protocol Last Admin: 03/15/18 08:20 Dose: 12.5 mg Dextrose (Dextrose 50% Inj) 50 ml IVP ONCE PRN; Protocol PRN Reason: Hypoglycemia Enoxaparin Sodium (Lovenox) 30 mg SC 0600 [facility]; Protocol Last Admin: 03/15/18 05:17 Dose: 30 mg Furosemide (Lasix) 40 mg PO DAILY [facility] Last Admin: 03/15/18 10:17 Dose: 40 mg Insulin Detemir (Levemir) 10 unit SC HS [facility]; Protocol Insulin Human Lispro (Humalog) 4 units SC AC [facility] Last Admin: 03/15/18 12:30 Dose: Not Given Insulin Human Lispro (Humalog Low) 0 units SC [facility]; Protocol Last Admin: 03/15/18 12:30 Dose: Not Given Isosorbide Mononitrate (Imdur) 60 mg PO 0630 [facility]; Protocol Last Admin: 03/15/18 05:30 Dose: 60 mg Levothyroxine Sodium (Synthroid) 125 mcg PO 0600 [facility]; Protocol Last Admin: 03/15/18 05:16 Dose: 125 mcg Lisinopril (Zestril) 2.5 mg PO DAILY [facility]; Protocol Last Admin: 03/15/18 10:18 Dose: 2.5 mg Pantoprazole Sodium (Protonix Ec Tab) 40 mg PO 0600 [facility]; Protocol Last Admin: 03/15/18 05:16 Dose: 40 mg Polyethylene Glycol (Miralax) 17 gm PO DAILY [facility]; Protocol Last Admin: 03/15/18 10:15 Dose: Not Given - Labs Labs: 03/13/18 06:00 03/13/18 06:00 Attending/Attestation - Attestation I have personally seen and examined this patient.: Yes I have fully participated in the care of the patient.: Yes I have reviewed all pertinent clinical information, including history, physical exam and plan: Yes Notes (Text): 03/15/18 15:46 Attending note; Patient seen and examined with resident. Patient is alert and awake. Oriented to place. Not in any acute distress. Patient is an 82-year-old female past medical history significant for hypertension, hyperlipidemia, type 2 diabetes, breast cancer status post lumpectomy, and coronary artery disease status post CABG that presented to the emergency room with confusion and altered mental status on 03/05/18. Patient t reated and transferred to TCU on 03/10/18 for gait instability. 1. Gait instability. Continue physical therapy as tolerated. Continue fall precautions. Physical therapy and occupational therapy evaluation appreciated. 2. Bilateral pleural effusions/ inflitrate. Likey secondary to acute systolic CHF likely secondary to NSTEMI. Continue Lasix 20mg IV q12hrs. Chest xray on03/13/18 shows stable bilateral infiltrates/pleural effusions. Status post treatment with Zosyn. ID recommendations appreciated. 2d echo showed moderately reduced LV function, EF 43%. Cardiology recommendations appreciated. 3. Toxic metabolic encephalopathy. Resolved. AAO x 2. Likely multifactorial secondary to UTI, DKA, NSTEMI. 4. DKA. Resolved. Type 1 insulin dependent DM. Endocrinology recommendations appreciated. Had an episode of hypoglycemia . Levemir dosage decreased . Monitor closely. 5. NSTEMI. Cardiology recommendations appreciated. Continue with Coreg and Lisinopril. Continue Imdur. Continue ASA. Patient refused cardiac catheterization. 6. Transaminitis. secondary to hypotension. LFTs continue to downtrend. 7. Anemia. FOBT positive. H&H stable. Patient was evaluated by GI. Continue Protonix. Continue to monitor CBC 8. Hypothyroidism. Continue Synthroid 9. Sternotomy wound. Continue local wound care. Wound culture positive for corynebacterium. Status post treatment with Zosyn. Patient will need outpatient follow-up with [facility] for removal of wire. Advanced directive. Patient is a DNR/DNI. Case discussed with onsite case manager for discharge planning. Upon discharge patient will follow up with PMD . 03/15/18 15:53
--- NOTE | 2018-03-15 15:13 | PN ---
DATE: 03/15/2018 LOCATION: Room 327. SUBJECTIVE: This is an 82-year-old female with recent uncontrolled type 2 insulin-requiring diabetes, now being followed closely for metabolic management. Her glycemic levels are fluctuating because of the variability of her oral intake with low normal glycemic values today and a glucose of 58 mg/dL. The repeat glucose values have ranged from 102 to 113 mg/dL and it was 268 at bedtime last night. PLAN: So, at this time, we will continue the same basal and bolus insulin regimen to allow for dose equilibration and keep her on the Levemir given as 14 units subcu at bedtime daily as given. We will continue the Humalog given as 4 units subcu t.i.d. before meals as ordered. We will obtain serial chemistries and supplement accordingly as needed. We will follow. Myrtle Moon MD
[2018-03-15] MEDS: Insulin Detemir 100 units/ml Vial (Levemir) SC SCH (21:26)
[2018-03-16] MEDS: Levothyroxine 125 MCG TAB PO SCH (05:52)
[2018-03-16] MEDS: Enoxaparin 30 mg Syringe SC SCH (05:52)
[2018-03-16] MEDS: Pantoprazole 40 mg EC Tab PO SCH (05:52)
[2018-03-16] MEDS: Insulin Lispro 1 UNITS/0.01 ML SC SCH ×3 (06:55→17:28)
[2018-03-16] MEDS: Insulin Lispro (humaLOG) LOW Coverage SC SCH ×4 (06:55→21:58)
[2018-03-16 07:04] LABS: BASO # 0.04 K/mm3 (0.0-2.0); BASO % 0.9 % (0.0-3.0); EOS # 0.2 (0.0-0.7); EOS % 3.7 % (1.5-5.0); GRAN # 2.49 (1.4-6.5); GRAN % 53.6 % (50.0-68.0); HEMOGLOBIN 10.7 g/dL (12.0-16.0); LYMPH # 1.1 (1.2-3.4); LYMPH % 24.1 % (22.0-35.0); MEAN CELL VOLUME 93.1 fl (80.0-105.0); MEAN CORPUSCULAR HEMOGLOBIN 30.8 pg (25.0-35.0); MEAN CORPUSCULAR HGB CONC 33.1 g/dl (31.0-37.0); MEAN PLATELET VOLUME 8.9 fl (7.0-11.0); MONO # 0.8 (0.1-0.6); MONO % 17.7 % (1.0-6.0); RBC 3.47 10^6/uL (3.5-6.1); RED CELL DISTRIBUTION WIDTH 14.8 % (11.5-14.5); WHITE BLOOD COUNT 4.6 10^3/uL (4.5-11.0)
[2018-03-16 07:30] LABS: ALB/GLOB RATIO 1.1 (1.1-1.8); ALBUMIN 3.1 g/dL (3.0-4.8); ALT/SGPT 59 U/L (7-56); AST/SGOT 39 U/L (14-36); BLOOD UREA NITROGEN 13 mg/dL (7-21); CALCIUM 8.3 mg/dL (8.4-10.5); GFR NON-AFRICAN AMERICAN > 60
[2018-03-16] MEDS: POLYETHYLENE GLYCOL 3350 17 GM/Dose PACKET PO SCH (10:00)
--- NOTE | 2018-03-16 10:06 | RAD ---
Date of service: 03/16/2018 HISTORY: f/u pleural effusions COMPARISON: 03/13/2017 FINDINGS: LUNGS: Stable lower lobe infiltrates right greater than left. PLEURA: Stable bilateral pleural effusions. CARDIOVASCULAR: Atherosclerotic calcifications identified primarily aortic arch. OSSEOUS STRUCTURES: No significant abnormalities. VISUALIZED UPPER ABDOMEN: Normal. OTHER FINDINGS: None. IMPRESSION: Stable bilateral infiltrates and effusions right greater than left. No new/acute findings.
--- NOTE | 2018-03-16 12:51 | CP.PCM.PN ---
Subjective - Date & Time of Evaluation Date of Evaluation: 03/15/18 Time of Evaluation: 12:48 - Subjective Subjective: Infectious Disease Follow Up: March 15, 2018 82 yo female found unconscious by her daughter at patient's home. Brought to [facility] for medical care and found to have Lactic acid of 7.6 on admission and procalcitonin of 4.12. The patient is currently awake and alert. Cultures of the urine with E. coli and cultures of the chest with Corynebacterium. The patient has received Zosyn IV and Vancomycin IV for antibiotic treatment. Zosyn started on 03/05/2018. Zosyn completed. Patient making no complaints at this time. Brought to Transitional Care. Objective - Vital Signs/Intake and Output Vital Signs (last 24 hours): Temp Pulse Resp BP Pulse Ox 97.5 F L 64 12 140/59 L 96 03/16/18 10:00 03/16/18 10:00 03/16/18 10:00 03/16/18 10:00 03/16/18 10:00 - Medications Medications: Current Medications Aspirin (Aspirin Chewable) 81 mg PO 0800 [facility]; Protocol Last Admin: 03/16/18 08:10 Dose: 81 mg Carvedilol (Coreg) 12.5 mg PO 0800,1800 [facility]; Protocol Last Admin: 03/16/18 08:10 Dose: 12.5 mg Dextrose (Dextrose 50% Inj) 50 ml IVP ONCE PRN; Protocol PRN Reason: Hypoglycemia Enoxaparin Sodium (Lovenox) 30 mg SC 0600 [facility]; Protocol Last Admin: 03/16/18 05:52 Dose: 30 mg Furosemide (Lasix) 40 mg PO DAILY [facility] Last Admin: 03/16/18 10:00 Dose: 40 mg Insulin Detemir (Levemir) 10 unit SC HS [facility]; Protocol Last Admin: 03/15/18 21:26 Dose: 10 units Insulin Human Lispro (Humalog) 4 units SC AC [facility] Last Admin: 03/16/18 12:10 Dose: 4 units Insulin Human Lispro (Humalog Low) 0 units SC ACHS [facility]; Protocol Last Admin: 03/16/18 12:11 Dose: Not Given Isosorbide Mononitrate (Imdur) 60 mg PO 0630 [facility]; Protocol Last Admin: 03/16/18 05:52 Dose: 60 mg Levothyroxine Sodium (Synthroid) 125 mcg PO 0600 [facility]; Protocol Last Admin: 03/16/18 05:52 Dose: 125 mcg Lisinopril (Zestril) 2.5 mg PO DAILY [facility]; Protocol Last Admin: 03/16/18 10:00 Dose: 2.5 mg Pantoprazole Sodium (Protonix Ec Tab) 40 mg PO 0600 [facility]; Protocol Last Admin: 03/16/18 05:52 Dose: 40 mg Polyethylene Glycol (Miralax) 17 gm PO DAILY [facility]; Protocol Last Admin: 03/16/18 10:00 Dose: Not Given - Labs Labs: 03/16/18 06:00 03/16/18 06:00 - Constitutional Appears: Non-toxic, No Acute Distress, Chronically Ill - Head Exam Head Exam: ATRAUMATIC, NORMOCEPHALIC - Eye Exam Eye Exam: EOMI, PERRL Pupil Exam: NORMAL ACCOMODATION, PERRL - ENT Exam ENT Exam: Mucous Membranes Moist, Normal External Ear Exam, TM's Normal Bilaterally - Neck Exam Neck Exam: Full ROM, Normal Inspection - Respiratory Exam Respiratory Exam: Clear to Ausculation Bilateral, NORMAL BREATHING PATTERN. absent: Rales, Rhonchi - Cardiovascular Exam Cardiovascular Exam: REGULAR RHYTHM, RRR, +S1, +S2 - GI/Abdominal Exam GI & Abdominal Exam: Soft, Normal Bowel Sounds. absent: Distended, Tenderness - Extremities Exam Extremities Exam: Full ROM, Normal Inspection - Neurological Exam Neurological Exam: Alert, Awake, CN II-XII Intact, Oriented x3 - Psychiatric Exam Psychiatric exam: Normal Affect, Normal Mood - Skin Skin Exam: Intact, Normal Color Assessment and Plan - Assessment and Plan (Free Text) Assessment: 82 y old female, PMhx HTN, HLD, CAD s/p CABG x 2, DM2, hypothyroidism, and breast ca s/p lumpectomy of L breast in remission, who presented with DKA, NSTEMI, new T wave inversions and RBBB on EKG on admission. The patient also had UTI with E. coli. Started on Zosyn for antibiotic coverage. Blood cultures negative for [address] showing ascites but no abscess. Continue on Zosyn IV for UTI with E. coli and Corynebacterium. 7 to 10 days of total treatment for antibiotics. Zosyn completed. Off antibiotics. Supportive care. Now in Transitional care. Thank you for allowing me to participate in the care of the patient, we will f peyman with you.
--- NOTE | 2018-03-16 13:08 | PN ---
DATE: 03/16/2018 SUBJECTIVE: This is an 82-year-old female with recent uncontrolled type 2 insulin-requiring diabetes, now being followed closely for metabolic management. Her oral intake continues to be quite variable with suboptimal meal portions as noted. Her glycemic levels are fluctuating with extremes of glycemic fluctuations from low normal glycemic values to hyperglycemic accelerations as noted overnight. Her glucose level was 82 this morning, but it was 305 and 372 last night as noted. Her chemistry showed a BUN of 13, sodium 133, potassium 3.4, chloride 98, CO2 of 33, glucose 64 and creatinine 0.7. ASSESSMENT AND PLAN: So at this time, we will continue the modified basal and bolus insulin regimen to adjust to the variability of her oral intake as noted. We will continue the lower basal insulin of Levemir at 10 units subcu at bedtime daily as given. We will continue the Humalog given as 4 units subcu t.i.d. before meals and titrate maybe even to 6 units as her oral intake improves accordingly. We will obtain serial chemistries and supplement accordingly as needed. We will follow. Myrtle Moon MD
[2018-03-16] MEDS: Insulin Detemir 100 units/ml Vial (Levemir) SC SCH (21:59)
[2018-03-17] MEDS: Levothyroxine 125 MCG TAB PO SCH (05:38)
[2018-03-17] MEDS: Pantoprazole 40 mg EC Tab PO SCH (05:38)
[2018-03-17] MEDS: Enoxaparin 30 mg Syringe SC SCH (05:47)
[2018-03-17] MEDS: Insulin Lispro (humaLOG) LOW Coverage SC SCH ×5 (06:58→22:00)
[2018-03-17] MEDS: Insulin Lispro 1 UNITS/0.01 ML SC SCH ×4 (08:07→17:30)
[2018-03-17] MEDS: POLYETHYLENE GLYCOL 3350 17 GM/Dose PACKET PO SCH (10:44)
--- NOTE | 2018-03-17 15:07 | CP.PCM.PN ---
<Clyde Simons - Last Filed: 03/17/18 15:03> Subjective - Date & Time of Evaluation Date of Evaluation: 03/17/18 Time of Evaluation: 07:15 - Subjective Subjective: Medicine Progress Note for Hospitalist Service, Dr. Demetrio Simons, DO PGY-1 Pt seen and examined at bedside this am. Denies any acute complaints, but states that she had difficulty sleeping last night. No acute events reported overnight by staff. Pt states that she is ambulating with PT but that she feels tired when she does it. Denies headache, fever, chills, vision changes, chest pain, sob, n/v/d/c, abd pain, urinary complaints, or other symptoms. Objective - Vital Signs/Intake and Output Vital Signs (last 24 hours): Temp Pulse Resp BP Pulse Ox 98 F 67 16 112/53 L 99 03/17/18 10:11 03/17/18 10:44 03/17/18 10:11 03/17/18 10:44 03/17/18 10:11 - Medications Medications: Current Medications Aspirin (Aspirin Chewable) 81 mg PO 0800 [facility]; Protocol Last Admin: 03/17/18 08:06 Dose: 81 mg Carvedilol (Coreg) 12.5 mg PO 0800,1800 [facility]; Protocol Last Admin: 03/17/18 08:06 Dose: 12.5 mg Dextrose (Dextrose 50% Inj) 50 ml IVP ONCE PRN; Protocol PRN Reason: Hypoglycemia Enoxaparin Sodium (Lovenox) 30 mg SC 0600 [facility]; Protocol Last Admin: 03/17/18 05:47 Dose: 30 mg Furosemide (Lasix) 40 mg PO DAILY [facility] Last Admin: 03/17/18 10:44 Dose: Not Given Insulin Detemir (Levemir) 10 unit SC HS [facility]; Protocol Last Admin: 03/16/18 21:59 Dose: 10 units Insulin Human Lispro (Humalog) 4 units SC AC [facility] Last Admin: 03/17/18 12:30 Dose: Not Given Insulin Human Lispro (Humalog Low) 0 units SC ACHS [facility]; Protocol Last Admin: 03/17/18 12:30 Dose: Not Given Isosorbide Mononitrate (Imdur) 60 mg PO 0630 [facility]; Protocol Last Admin: 12/26/18 05:38 Dose: 60 mg Levothyroxine Sodium (Synthroid) 125 mcg PO 0600 [facility]; Protocol Last Admin: 03/17/18 05:38 Dose: 125 mcg Lisinopril (Zestril) 2.5 mg PO DAILY [facility] Pantoprazole Sodium (Protonix Ec Tab) 40 mg PO 0600 [facility]; Protocol Last Admin: 03/17/18 05:38 Dose: 40 mg Polyethylene Glycol (Miralax) 17 gm PO DAILY [facility]; Protocol Last Admin: 03/17/18 10:44 Dose: Not Given - Labs Labs: 03/16/18 06:00 03/16/18 06:00 - Constitutional Appears: Non-toxic, No Acute Distress - Head Exam Head Exam: ATRAUMATIC, NORMOCEPHALIC - Eye Exam Eye Exam: EOMI, Normal appearance, PERRL - ENT Exam ENT Exam: Mucous Membranes Moist - Respiratory Exam Respiratory Exam: Clear to Ausculation Bilateral, NORMAL BREATHING PATTERN. absent: Rales, Rhonchi, Wheezes - Cardiovascular Exam Cardiovascular Exam: REGULAR RHYTHM, +S1, +S2. absent: Gallop, Rubs, Murmur - GI/Abdominal Exam GI & Abdominal Exam: Soft, Normal Bowel Sounds. absent: Distended, Guarding, Tenderness, Organomegaly - Extremities Exam Extremities Exam: Full ROM, Normal Capillary Refill, Normal Inspection. absent: Pedal Edema, Tenderness - Neurological Exam Neurological Exam: Alert, Awake, CN II-XII Intact, Oriented x3 - Psychiatric Exam Psychiatric exam: Normal Affect, Normal Mood - Skin Skin Exam: Dry, Intact, Normal Color, Warm Assessment and Plan - Assessment and Plan (Free Text) Assessment: 82 yr old female admitted for DKA with subsequent dx of NSTEMI and UTI, bilateral pleural effusions as sequelae of new onset heart failure d/t NSTEMI. Currently in TCU. Plan: Bilateral pleural effusions - Likely 2/2 to acute systolic CHF after NSTEMI - Lasix 40 mg PO daily - Monitor ins and outs - Repeat CXR 03/16: stable b/l infiltrates and effusions R > L; no new/acute findings - Encourage OOBTC and ambulation with PT - ECHO: moderately reduced LV function, EF 43% - Cardiology following, recommendations appreciated Toxic metabolic encephalopathy - May be at baseline now. AAO x 2 - Likely secondary to multifactorial issues including UTI, DKA, NSTEMI, age related cognitive decline (most likely) - Continue to treat underlying causes - Continue supportive care -Head CT per radiologist showed no evidence of acute intracranial hemorrhage or mass effect or midline shift, moderate atrophy and mild to moderate chronic m icrovascular white matter ischemic changes DKA (Resolved) -Type 1 insulin dependent DM -Endocrinology following, recommendations appreciated -Continue insulin per endocrinology -Hypoglycemia improved -Continue accuchecks -HgbA1C 9.7 NSTEMI with hemodynamic instability (resolved) - Cardiology following, recommendations appreciated - No longer on Heparin drip per cardiology Dr. Sorto - Troponins downtrended - Continue with Coreg and Lisinopril - Continue ASA - Patient not a candidate for current coronary intervention or angiography per cardiology UTI (resolved) - Urine culture positive for Escherichia coli - Patient completed Zosyn - Patient afebrile - Leukocytosis resolved - Repeat labs Q3D - ID consulted , recs appreciated Transaminitis (improving) - Likely ischemic hepatitis secondary to hypotension - LFTs downtrending - GI following, recommendations appreciated - Abdominal US per radiologist showed interval grossly abnormal appearing gallbladder with mural thickening in [place] complicated pericholecystic fluid/phlegmon potentially reflecting abscess, no sonographic evidence of biliary tree dilatation however acalculous cholecystitis is in question, mild to moderate abdominal ascites, pancreas completely obscured by overlying bowel gas - CT abdomen and pelvis per radiologist showed no evidence of right upper quadrant abscess, large bilateral pleural effusions with compressive atelectasis, pelvic ascites with anasarca, colonic diverticulosis, leiomyomatous uterus Hypokalemia (resolved) - Continue to monitor - repeat labs Q3D Anemia - FOBT positive on admission - H&H stable - GI following, recommendations appreciated - Continue Protonix - Continue to monitor CBC Q3D Hypothyroidism - Continue Synthroid Sternotomy wound - Continue local wound care - Per patient, has been there for about 2 years - Wound culture positive for corynebacterium - will need follow up with her surgeon at [facility] for correction GI/DVT prophylaxis: Protonix/Heparin Advanced directive. Patient is a DNR/DNI Dispo: Currently in TCU, may need VNS/homemaker to ensure proper insulin regimen enforcement on d/c. Pt seen, examined with, and plan discussed with Dr. Atkinson, attending physician. Clyde Simons DO PGY-1, Operater Pager #[phone] <Sadia Atkinson - Last Filed: 03/20/18 14:41> Objective - Vital Signs/Intake and Output Vital Signs (last 24 hours): Temp Pulse Resp BP Pulse Ox 98.7 F 67 18 161/68 H 97 03/19/18 16:00 03/19/18 16:00 03/19/18 16:00 03/19/18 16:00 03/19/18 16:00 - Labs Labs: 03/18/18 08:50 03/18/18 08:50 Attending/Attestation - Attestation I have personally seen and examined this patient.: Yes I have fully participated in the care of the patient.: Yes I have reviewed all pertinent clinical information, including history, physical exam and plan: Yes Notes (Text): Attending note; Patient seen and examined with resident. Patient is currently doing physical therapy. Ambulating without difficulty. Advised to use walker as needed at home. Patient wants to go home. Patient is alert and awake. Oriented to place. Not in any acute distress. Patient is an 82-year-old female past medical history significant for hypertension, hyperlipidemia, type 2 diabetes, breast cancer status post lumpectomy, and coronary artery disease status post CABG that presented to the emergency room with confusion and altered mental status on 03/05/18. Patient treated and transferred to TCU on 03/10/18 for gait instability. 1. Gait instability. Continue physical therapy as tolerated. Continue fall precautions. Physical therapy and occupational therapy evaluation appreciated. Currently not using cane or walker. Advised to use rolling walker. Prescription given. 2. Bilateral pleural effusions/ inflitrate. Slowly resolving. Continue by mouth Lasix. Repeat chest x-ray showed no changes. Status post treatment with Zosyn. ID recommendations appreciated. 2d echo showed moderately reduced LV function, EF 43%. Cardiology recommendations appreciated. 3. Toxic metabolic encephalopathy. Resolved. AAO x 2. Likely multifactorial secondary to UTI, DKA, NSTEMI. 4. DKA. Resolved. Type 1 insulin dependent DM. Endocrinology recommendations appreciated. Had an episode of hypoglycemia . Levemir dosage decreased. Monitor closely. 5. NSTEMI. Cardiology recommendations appreciated. Continue with Coreg and Lisinopril. Continue Imdur. Continue ASA. Patient refused cardiac catheterization. 6. Transaminitis. Resolved. secondary to hypotension. LFTs continue to downtrend. 7. Anemia. FOBT positive. H&H stable. Patient was evaluated by GI. Continue Protonix. Continue to monitor CBC 8. Hypothyroidism. Continue Synthroid 9. Sternotomy wound. Continue local wound care. Wound culture positive for corynebacterium. Status post treatment with Zosyn. Patient will need outpatient follow-up with [facility] for removal of wire. Advanced directive. Patient is a DNR/DNI. Case discussed with insurance case manager for discharge planning. Possible discharge home versus subacute rehabilitation placement. Family is discussing with insurance case manager/psych social worker for discharge planning. Upon discharge patient will follow up with PMD .
--- NOTE | 2018-03-17 19:33 | CP.PCM.PN ---
Subjective - Date & Time of Evaluation Date of Evaluation: 03/17/18 Time of Evaluation: 15:00 - Subjective Subjective: Infectious Disease Follow Up: March 17, 2018 82 yo female found unconscious by her daughter at patient's home. Brought [place] [facility] [place] and found to have Lactic acid of 7.6 on admission and procalcitonin of 4.12. The patient is currently awake and alert. Cultures of the urine with E. coli and cultures of the chest with Corynebacterium. The patient has received Zosyn IV and Vancomycin IV for antibiotic treatment. Zosyn started on 03/05/2018. Zosyn completed. Patient making no complaints at this time. Brought to Transitional Care. Objective - Vital Signs/Intake and Output Vital Signs (last 24 hours): Temp Pulse Resp BP Pulse Ox 98 F 62 16 159/67 H 99 03/17/18 10:11 03/17/18 17:12 03/17/18 10:11 03/17/18 17:12 03/17/18 10:11 - Medications Medications: Current Medications Aspirin (Aspirin Chewable) 81 mg PO 0800 [facility]; Protocol Last Admin: 03/17/18 08:06 Dose: 81 mg Carvedilol (Coreg) 12.5 mg PO 0800,1800 [facility]; Protocol Last Admin: 03/17/18 17:12 Dose: 12.5 mg Dextrose (Dextrose 50% Inj) 50 ml IVP ONCE PRN; Protocol PRN Reason: Hypoglycemia Enoxaparin Sodium (Lovenox) 30 mg SC 0600 [facility]; Protocol Last Admin: 03/17/18 05:47 Dose: 30 mg Furosemide (Lasix) 40 mg PO DAILY [facility] Last Admin: 03/17/18 10:44 Dose: Not Given Insulin Detemir (Levemir) 10 unit SC HS [facility]; Protocol Last Admin: 03/16/18 21:59 Dose: 10 units Insulin Human Lispro (Humalog) 4 units SC AC [facility] Last Admin: 03/17/18 17:30 Dose: 4 units Insulin Human Lispro (Humalog Low) 0 units SC ACHS [facility]; Protocol Last Admin: 03/17/18 17:30 Dose: Not Given Isosorbide Mononitrate (Imdur) 60 mg PO 0630 [facility]; Protocol Last Admin: 03/17/18 05:38 Dose: 60 mg Levothyroxine Sodium (Synthroid) 125 mcg PO 0600 [facility]; Protocol Last Admin: 03/17/18 05:38 Dose: 125 mcg Lisinopril (Zestril) 2.5 mg PO DAILY [facility] Pantoprazole Sodium (Protonix Ec Tab) 40 mg PO 0600 [facility]; Protocol Last Admin: 03/17/18 05:38 Dose: 40 mg Polyethylene Glycol (Miralax) 17 gm PO DAILY [facility]; Protocol Last Admin: 03/17/18 10:44 Dose: Not Given - Labs Labs: 03/16/18 06:00 03/16/18 06:00 - Constitutional Appears: Non-toxic, No Acute Distress, Chronically Ill - Head Exam Head Exam: ATRAUMATIC, NORMOCEPHALIC - Eye Exam Eye Exam: EOMI, PERRL Pupil Exam: NORMAL ACCOMODATION, PERRL - ENT Exam ENT Exam: Mucous Membranes Moist, Normal External Ear Exam, TM's Normal Bilaterally - Neck Exam Neck Exam: Full ROM, Normal Inspection - Respiratory Exam Respiratory Exam: Clear to Ausculation Bilateral, NORMAL BREATHING PATTERN. absent: Rales, Rhonchi, Wheezes - Cardiovascular Exam Cardiovascular Exam: REGULAR RHYTHM, RRR, +S1, +S2 - GI/Abdominal Exam GI & Abdominal Exam: Soft, Normal Bowel Sounds. absent: Distended, Tenderness - Extremities Exam Extremities Exam: Full ROM, Normal Inspection - Neurological Exam Neurological Exam: Alert, Awake, CN II-XII Intact, Oriented x3 - Psychiatric Exam Psychiatric exam: Normal Affect, Normal Mood - Skin Skin Exam: Intact, Normal Color Assessment and Plan - Assessment and Plan (Free Text) Assessment: 82 y old female, PMhx HTN, HLD, CAD s/p CABG x 2, DM2, hypothyroidism, and breast ca s/p lumpectomy of L breast in remission, who presented with DKA, NSTEMI, new T wave inversions and RBBB on EKG on admission. The patient also had UTI with E. coli. Started on Zosyn for antibiotic coverage. Blood cultures negative for [address] showing ascites but no abscess. Continue on Zosyn IV for UTI with E. coli and Corynebacterium. 7 to 10 days of total treatment for antibiotics. Zosyn completed. Off antibiotics. Supportive care. Now in Transitional care. Thank you for allowing me to participate in the care of the patient, we will follow with you.
--- NOTE | 2018-03-17 21:39 | PN ---
DATE: 03/17/2018 LOCATION: Room 327, [facility]. SUBJECTIVE: This is an 82-year-old female with recent uncontrolled type 2 insulin-requiring diabetes, now being followed closely for metabolic management. Her oral intake continues to be variable as per the nursing staff with supervening glycemic fluctuations as noted today. Her glucose levels were actually 307 at bedtime last night and today was 62 to 147 and 223 mg/dL. Her latest chemistry showed a BUN of 13, sodium 133, potassium 3.4, chloride 98, CO2 of 33, glucose 64, and creatinine 0.7. ASSESSMENT AND PLAN: So, at this time, we will continue the same basal and bolus insulin regimen to allow for dose equilibration, especially with the variability of her oral intake as noted. We will continue the Humalog given a very low dose of 4 units subcutaneously t.i.d. before meals as ordered. We will continue also the low-dose basal insulin given as Levemir at 10 units subcutaneously at bedtime daily as given. Moreover, her Humalog coverage scale is also very low dose with coverage only for glucose levels above 300 mg/dL. We will obtain serial chemistries and supplement accordingly as needed. We will follow. Myrtle Moon MD
[2018-03-17] MEDS: Insulin Detemir 100 units/ml Vial (Levemir) SC SCH (22:01)
[2018-03-18] MEDS: Levothyroxine 125 MCG TAB PO SCH (05:58)
[2018-03-18] MEDS: Enoxaparin 30 mg Syringe SC SCH (05:59)
[2018-03-18] MEDS: Pantoprazole 40 mg EC Tab PO SCH (06:06)
[2018-03-18] MEDS: Insulin Lispro (humaLOG) LOW Coverage SC SCH ×4 (07:10→21:56)
[2018-03-18] MEDS: Insulin Lispro 1 UNITS/0.01 ML SC SCH ×3 (07:52→17:30)
[2018-03-18 09:00] LABS: HEMOGLOBIN 12.1 g/dL (12.0-16.0); MEAN CELL VOLUME 94.8 fl (80.0-105.0); MEAN CORPUSCULAR HEMOGLOBIN 31.2 pg (25.0-35.0); MEAN CORPUSCULAR HGB CONC 32.9 g/dl (31.0-37.0); MEAN PLATELET VOLUME 8.7 fl (7.0-11.0); RBC 3.88 10^6/uL (3.5-6.1); RED CELL DISTRIBUTION WIDTH 14.9 % (11.5-14.5); WHITE BLOOD COUNT 5.1 10^3/uL (4.5-11.0)
[2018-03-18 09:34] LABS: ALB/GLOB RATIO 1.3 (1.1-1.8); ALBUMIN 3.6 g/dL (3.0-4.8); ALT/SGPT 59 U/L (7-56); AST/SGOT 34 U/L (14-36); BLOOD UREA NITROGEN 15 mg/dL (7-21); CALCIUM 8.9 mg/dL (8.4-10.5); GFR NON-AFRICAN AMERICAN > 60
[2018-03-18] MEDS: POLYETHYLENE GLYCOL 3350 17 GM/Dose PACKET PO SCH (10:02)
[2018-03-18 16:46] VITALS: RESP 18
--- NOTE | 2018-03-18 17:00 | CP.PCM.PN ---
Subjective - Date & Time of Evaluation Date of Evaluation: 03/18/18 Time of Evaluation: 16:00 - Subjective Subjective: Infectious Disease Follow Up: March 18, 2018 82 yo female found unconscious by her daughter at patient's home. Brought to [facility] for medical care and found to have Lactic acid of 7.6 on admission and procalcitonin of 4.12. The patient is currently awake and alert. Cultures of the urine with E. coli and cultures of the chest with Corynebacterium. The patient has received Zosyn IV and Vancomycin IV for antibiotic treatment. Zosyn started on 03/05/2018. Zosyn completed. Patient making no complaints at this time. Brought to Transitional Care. Objective - Vital Signs/Intake and Output Vital Signs (last 24 hours): Temp Pulse Resp BP Pulse Ox 97.6 F 56 L 18 161/62 H 98 03/18/18 16:00 03/18/18 16:00 03/18/18 16:00 03/18/18 16:00 03/18/18 16:00 - Medications Medications: Current Medications Aspirin (Aspirin Chewable) 81 mg PO 0800 [facility]; Protocol Last Admin: 03/18/18 08:22 Dose: 81 mg Carvedilol (Coreg) 12.5 mg PO 0800,1800 [facility]; Protocol Last Admin: 03/18/18 08:22 Dose: 12.5 mg Dextrose (Dextrose 50% Inj) 50 ml IVP ONCE PRN; Protocol PRN Reason: Hypoglycemia Enoxaparin Sodium (Lovenox) 30 mg SC 0600 [facility]; Protocol Last Admin: 03/18/18 05:59 Dose: 30 mg Furosemide (Lasix) 20 mg PO DAILY [facility] Insulin Detemir (Levemir) 10 unit SC HS [facility]; Protocol Last Admin: 03/17/18 22:01 Dose: 10 units Insulin Human Lispro (Humalog) 4 units SC AC [facility] Last Admin: 03/18/18 14:21 Dose: Not Given Insulin Human Lispro (Humalog Low) 0 units SC ACHS [facility]; Protocol Last Admin: 03/18/18 14:21 Dose: Not Given Isosorbide Mononitrate (Imdur) 60 mg PO 0630 [facility]; Protocol Last Admin: 03/18/18 06:03 Dose: 60 mg Levothyroxine Sodium (Synthroid) 125 mcg PO 0600 [facility]; Protocol Last Admin: 03/18/18 05:58 Dose: 125 mcg Lisinopril (Zestril) 2.5 mg PO DAILY [facility] Last Admin: 03/18/18 10:03 Dose: 2.5 mg Pantoprazole Sodium (Protonix Ec Tab) 40 mg PO 0600 [facility]; Protocol Last Admin: 03/18/18 06:06 Dose: 40 mg Polyethylene Glycol (Miralax) 17 gm PO DAILY [facility]; Protocol Last Admin: 03/18/18 10:02 Dose: Not Given - Labs Labs: 03/18/18 08:50 03/18/18 08:50 - Constitutional Appears: Non-toxic, No Acute Distress, Chronically Ill - Head Exam Head Exam: ATRAUMATIC, NORMOCEPHALIC - Eye Exam Eye Exam: EOMI, PERRL Pupil Exam: NORMAL ACCOMODATION, PERRL - ENT Exam ENT Exam: Mucous Membranes Moist, Normal External Ear Exam, TM's Normal Bilaterally - Respiratory Exam Respiratory Exam: Clear to Ausculation Bilateral, NORMAL BREATHING PATTERN. absent: Rales, Rhonchi, Wheezes - Cardiovascular Exam Cardiovascular Exam: REGULAR RHYTHM, RRR, +S1, +S2 - GI/Abdominal Exam GI & Abdominal Exam: Soft, Normal Bowel Sounds. absent: Distended, Tenderness - Extremities Exam Extremities Exam: Full ROM, Normal Inspection - Neurological Exam Neurological Exam: Alert, Awake, CN II-XII Intact, Oriented x3 - Psychiatric Exam Psychiatric exam: Normal Affect, Normal Mood Assessment and Plan - Assessment and Plan (Free Text) Assessment: 82 y old female, PMhx HTN, HLD, CAD s/p CABG x 2, DM2, hypothyroidism, and breast ca s/p lumpectomy of L breast in remission, who presented with DKA, NSTEMI, new T wave inversions and RBBB on EKG on admission. The patient also had UTI with E. coli. Started on Zosyn for antibiotic coverage. Blood cultures negative for [address] showing ascites but no abscess. Continue on Zosyn IV for UTI with E. coli and Corynebacterium. 7 to 10 days of total treatment for antibiotics. Zosyn completed. Off antibiotics. Supportive care. Now in Transitional care. Refused from [facility]. Family will not accept [facility]. Family wants to take the patient home instead. Thank you for allowing me to participate in the care of the patient, we will follow with you.
--- NOTE | 2018-03-18 18:49 | PN ---
DATE: 03/18/2018 ENDOCRINOLOGY FOLLOWUP NOTE LOCATION: Room 327, [facility]. SUBJECTIVE: This is an 82-year-old female with recent uncontrolled type 2 insulin-requiring diabetes, now being followed closely for metabolic management. Her glycemic levels are still variable because of the variability of her oral intake as noted, but have improved overnight with glucose levels ranging from to 110 to 112 mg/dL. It was 260 at bedtime last night. LABORATORY DATA: Her chemistry shows BUN of 15, sodium 133, potassium 4.5, chloride 97, CO2 of 31, glucose 138, and creatinine 0.7. ASSESSMENT AND PLAN: So at this time, we will continue modifying basal and bolus insulin regimen as ordered with Levemir given as 10 units subcutaneous at bedtime daily as given. We will continue also the Humalog given as 4 units t.i.d. before meals as ordered. However, if her oral intake improves at home, she has been advised to go high of her Humalog to 6 units as indicated per needle. She will follow with her medical doctor for outpatient diabetic and medical followup. We will also recommend the same dosing for the Synthroid given as 125 mcg daily as ordered. We will also recommend to repeat T4 and TSH in 6 to 8 weeks upon dose adjustments to be undertaken accordingly. We will follow up with you. Myrtle Moon MD
[2018-03-18] MEDS: Insulin Detemir 100 units/ml Vial (Levemir) SC SCH (21:57)
[2018-03-19] MEDS: Levothyroxine 125 MCG TAB PO SCH (05:57)
[2018-03-19] MEDS: Pantoprazole 40 mg EC Tab PO SCH (05:57)
[2018-03-19] MEDS: Enoxaparin 30 mg Syringe SC SCH (05:58)
[2018-03-19] MEDS: Insulin Lispro (humaLOG) LOW Coverage SC SCH ×3 (06:55→15:58)
[2018-03-19] MEDS ORDERED: Insulin Lispro 1 UNITS/0.01 ML SC SCH (07:30)
[2018-03-19] MEDS: POLYETHYLENE GLYCOL 3350 17 GM/Dose PACKET PO SCH (09:08)
[2018-03-19] MEDS: Insulin Lispro 1 UNITS/0.01 ML SC SCH ×2 (11:23→15:59)
--- NOTE | 2018-03-19 11:40 | CP.PCM.DIS ---
<Nancy Gudino - Last Filed: 03/19/18 15:39> Provider - Provider Date of Admission: 03/10/18 18:35 Attending physician: Sadia Atkinson MD Primary care physician: Jayy Barney MD Consults: 03/10/18 19:03 Nursing Referral for Wound Care Routine Comment: Physician Instructions: Reason For Exam: redness underbutt 03/10/18 19:24 Physician Consult Routine Comment: Consulting Provider: Ari Garzon Consulting Physician: Ari Garzon Reason for Consult: RBBB 03/10/18 19:30 Physician Consult Routine Comment: Consulting Provider: Myrtle Moon Consulting Physician: Myrtle Moon Reason for Consult: DKA 03/10/18 19:31 Physician Consult Routine Comment: Consulting Provider: Shelly Holt V Consulting Physician: Shelly Holt V Reason for Consult: + stool occ.bld. 03/10/18 19:33 Physician Consult Routine Comment: Consulting Provider: Deepak Pickard Consulting Physician: Deepak Pickard Reason for Consult: possible GB abcess 03/17/18 10:07 Nursing Referral for Wound Care Routine Comment: Physician Instructions: Reason For Exam: wound on chest Time Spent in preparation of Discharge (in minutes): 45 Hospital Course - Lab Results Lab Results: Most Recent Lab Values WBC 5.1 10^3/uL (4.5-11.0) 03/18/18 08:50 RBC 3.88 10^6/uL (3.5-6.1) 03/18/18 08:50 Hgb 12.1 g/dL (12.0-16.0) 03/18/18 08:50 Hct 36.8 % (36.0-48.0) 03/18/18 08:50 MCV 94.8 fl (80.0-105.0) 03/18/18 08:50 MCH 31.2 pg (25.0-35.0) 03/18/18 08:50 MCHC 32.9 g/dl (31.0-37.0) 03/18/18 08:50 RDW 14.9 % (11.5-14.5) H 03/18/18 08:50 Plt Count 375 10^3/uL (120.0-450.0) 03/18/18 08:50 MPV 8.7 fl (7.0-11.0) 03/18/18 08:50 Gran % 53.6 % (50.0-68.0) 03/16/18 06:00 Lymph % (Auto) 24.1 % (22.0-35.0) 03/16/18 06:00 [place] % (Auto) 17.7 % (1.0-6.0) H 03/16/18 06:00 Eos % (Auto) 3.7 % (1.5-5.0) 03/16/18 06:00 Baso % (Auto) 0.9 % (0.0-3.0) 03/16/18 06:00 Gran # 2.49 (1.4-6.5) 03/16/18 06:00 Lymph # (Auto) 1.1 (1.2-3.4) L 03/16/18 06:00 [place] # (Auto) 0.8 (0.1-0.6) H 03/16/18 06:00 Eos # (Auto) 0.2 (0.0-0.7) 03/16/18 06:00 Baso # (Auto) 0.04 K/mm3 (0.0-2.0) 03/16/18 06:00 Sodium 133 mmol/L (132-148) 03/18/18 08:50 Potassium 4.5 mmol/L (3.6-5.0) 03/18/18 08:50 Chloride 97 mmol/L (98-107) L 03/18/18 08:50 Carbon Dioxide 31 mmol/L (21-33) 03/18/18 08:50 Anion Gap 9 (10-20) L 03/18/18 08:50 BUN 15 mg/dL (7-21) 03/18/18 08:50 Creatinine 0.7 mg/dl (0.7-1.2) 03/18/18 08:50 Est GFR ( Amer) > 60 03/18/18 08:50 Est GFR (Non-Af Amer) > 60 03/18/18 08:50 POC Glucose (mg/dL) 136 mg/dL (65-110) H 03/19/18 11:15 Random Glucose 138 mg/dL (70-110) H 03/18/18 08:50 Hemoglobin A1c 9.6 % (4.2-6.5) H 03/12/18 06:00 Calcium 8.9 mg/dL (8.4-10.5) 03/18/18 08:50 Phosphorus 3.5 mg/dL (2.5-4.5) 03/18/18 08:50 Magnesium 2.0 mg/dL (1.7-2.2) 03/18/18 08:50 Total Bilirubin 0.6 mg/dL (0.2-1.3) 03/18/18 08:50 AST 34 U/L (14-36) 03/18/18 08:50 ALT 59 U/L (7-56) H 03/18/18 08:50 Alkaline Phosphatase 67 U/L (38-126) 03/18/18 08:50 Total Protein 6.4 g/dL (5.8-8.3) 03/18/18 08:50 Albumin 3.6 g/dL (3.0-4.8) 03/18/18 08:50 Globulin 2.9 gm/dL 03/18/18 08:50 Albumin/Globulin Ratio 1.3 (1.1-1.8) 03/18/18 08:50 Thyroxine (T4) 6.7 ug/dL (5.5-11.0) 03/12/18 06:00 TSH 3rd Generation 14.30 mIU/mL (0.46-4.68) H 03/12/18 06:00 - Hospital Course Hospital Course: The patient was transferred to TCU for further PT and diuresis for pleural effusions. During her stay Dr. Moon endocrinology continued to titrate the patient's insulin treatments to maintain optimum glucode control. Patient breathing and tolerance of PT improved during her time in TCU and prior to discharge the need for someone who would come to remind/ help the patient to take her insulin at home was discussed at length with the patient and her daughter. Patient had no further symtoms of NSTEMI, UTI or DKA during her TCU stay. Patient was instructed regarding her insulin administration as well as all medications she was prescribed. She was additionally instructed to follow up with her channel business manager as well as her cardiothoracic surgeon at [facility]. - Date & Time of H&P Date of H&P: 03/11/18 Time of H&P: 12:45 Discharge Exam - Head Exam Head Exam: ATRAUMATIC, NORMOCEPHALIC - Eye Exam Eye Exam: EOMI - ENT Exam ENT Exam: Mucous Membranes Moist - Respiratory Exam Respiratory Exam: NORMAL BREATHING PATTERN - Cardiovascular Exam Cardiovascular Exam: REGULAR RHYTHM - GI/Abdominal Exam GI & Abdominal Exam: Soft. absent: Distended, Guarding, Tenderness - Extremities Exam Extremities exam: pedal pulses present - Neurological Exam Neurological exam: Alert, Oriented x3 - Psychiatric Exam Psychiatric exam: Normal Affect, Normal Mood - Skin Skin Exam: Dry, Intact, Normal Color, Warm Discharge Plan - Discharge Medications Prescriptions: RX: Aspirin [Aspirin Chewable] 81 mg PO DAILY #30 chew RX: Carvedilol [Coreg] 12.5 mg PO BID #60 tab Furosemide [Lasix] 20 mg PO DAILY #30 tab Insulin Glargine, Recombina [Lantus] 10 unit SC HS #1 vial RX: Insulin Lispro [humALOG] 4 units SC AC #1 vial RX: Isosorbide Mononitrate [Imdur] 60 mg PO DAILY #30 tab RX: Levothyroxine [Synthroid] 125 mcg PO 0600 #30 tab RX: Lisinopril [Zestril] 2.5 mg PO DAILY #30 tab RX: Multivit-Min/FA/Lycopen/Lutein [Centrum Silver Tablet] 1 tab PO DAILY #30 tablet RX: Simvastatin 20 mg PO DAILY #30 tablet - Follow Up Plan Condition: GOOD Disposition: HOME/ ROUTINE Instructions: Heart Attack, Dehydration, Adult (DC), Diabetic Ketoacidosis, Hy ponatremia Additional Instructions: You will need to follow up with your primary care doctor within 3-5 days of discharge. Upon discharge you will be prescribed the following medications: Lantus 10 units subcutaneously at bedtime daily Humalog 4-6 units subcutaneously with meals depending on the size of the meal (more with larger meals) Lasix 20 mg PO Daily (DIURETIC) Lisinopril 2.5mg PO Daily (BLOOD PRESSURE PILL) Synthroid 125 mcg PO DAILY (THIS MEDICATION WAS INCREASED FROM 100mcg DAILY) Aspirin 81 mg PO Daily (CARDIAC RISK REDUCTION) Carvedilol 12.5 mg PO ONE PILL TWICE PER DAY Imdur 60 mg Daily (HEART MEDICATION) Simvastatin 20mg Daily (CHOLESTEROL MEDICINE) Your medications were brought to you by the bedside. Please check your blood sugar before administering insulin. Do not take if blood sugars are below 100. Do not take insulin without checking your sugars and do not take insulin if you are skipping meals. Please follow up with channel business manager, Dr. Sorto, within 1 week of discharge. Please follow up with your cardiothoracic surgeon at [facility] for evaluation of sternotomy wire, keep the area covered and dry. If your symptoms return, please go to the nearest emergency department. Referrals: Fredrick Sorto MD [Staff Provider] - Jayy Barney MD [Primary Care Provider] - <Katarina Shannon - Last Filed: 03/21/18 19:45> Provider - Provider Date of Admission: 03/10/18 18:35 Attending physician: Katarina Shannon DO Primary care physician: Jayy Barney MD Consults: 03/10/18 19:03 Nursing Referral for Wound Care Routine Comment: Physician Instructions: Reason For Exam: redness underbutt 03/10/18 19:24 Physician Consult Routine Comment: Consulting Provider: Ari Garzon Consulting Physician: Ari Garzon Reason for Consult: RBBB 03/10/18 19:30 Physician Consult Routine Comment: Consulting Provider: Myrtle Moon Consulting Physician: Myrtle Moon Reason for Consult: DKA 03/10/18 19:31 Physician Consult Routine Comment: Consulting Provider: Shelly Holt V Consulting Physician: Shelly Holt V Reason for Consult: + stool occ.bld. 03/10/18 19:33 Physician Consult Routine Comment: Consulting Provider: Deepak Pickard Consulting Physician: Deepak Pickard Reason for Consult: possible GB abcess 03/17/18 10:07 Nursing Referral for Wound Care Routine Comment: Physician Instructions: Reason For Exam: wound on chest Hospital Course - Lab Results Lab Results: Most Recent Lab Values WBC 5.1 10^3/uL (4.5-11.0) 03/18/18 08:50 RBC 3.88 10^6/uL (3.5-6.1) 03/18/18 08:50 Hgb 12.1 g/dL (12.0-16.0) 03/18/18 08:50 Hct 36.8 % (36.0-48.0) 03/18/18 08:50 MCV 94.8 fl (80.0-105.0) 03/18/18 08:50 MCH 31.2 pg (25.0-35.0) 03/18/18 08:50 MCHC 32.9 g/dl (31.0-37.0) 03/18/18 08:50 RDW 14.9 % (11.5-14.5) H 03/18/18 08:50 Plt Count 375 10^3/uL (120.0-450.0) 03/18/18 08:50 MPV 8.7 fl (7.0-11.0) 03/18/18 08:50 Gran % 53.6 % (50.0-68.0) 03/16/18 06:00 Lymph % (Auto) 24.1 % (22.0-35.0) 03/16/18 06:00 [place] % (Auto) 17.7 % (1.0-6.0) H 03/16/18 06:00 Eos % (Auto) 3.7 % (1.5-5.0) 03/16/18 06:00 Baso % (Auto) 0.9 % (0.0-3.0) 03/16/18 06:00 Gran # 2.49 (1.4-6.5) 03/16/18 06:00 Lymph # (Auto) 1.1 (1.2-3.4) L 03/16/18 06:00 [place] # (Auto) 0.8 (0.1-0.6) H 03/16/18 06:00 Eos # (Auto) 0.2 (0.0-0.7) 03/16/18 06:00 Baso # (Auto) 0.04 K/mm3 (0.0-2.0) 03/16/18 06:00 Sodium 133 mmol/L (132-148) 03/18/18 08:50 Potassium 4.5 mmol/L (3.6-5.0) 03/18/18 08:50 Chloride 97 mmol/L (98-107) L 03/18/18 08:50 Carbon Dioxide 31 mmol/L (21-33) 03/18/18 08:50 Anion Gap 9 (10-20) L 03/18/18 08:50 BUN 15 mg/dL (7-21) 03/18/18 08:50 Creatinine 0.7 mg/dl (0.7-1.2) 03/18/18 08:50 Est GFR ( Amer) > 60 03/18/18 08:50 Est GFR (Non-Af Amer) > 60 03/18/18 08:50 POC Glucose (mg/dL) 334 mg/dL (65-110) H 03/19/18 15:49 Random Glucose 138 mg/dL (70-110) H 03/18/18 08:50 Hemoglobin A1c 9.6 % (4.2-6.5) H 03/12/18 06:00 Calcium 8.9 mg/dL (8.4-10.5) 03/18/18 08:50 Phosphorus 3.5 mg/dL (2.5-4.5) 03/18/18 08:50 Magnesium 2.0 mg/dL (1.7-2.2) 03/18/18 08:50 Total Bilirubin 0.6 mg/dL (0.2-1.3) 03/18/18 08:50 AST 34 U/L (14-36) 03/18/18 08:50 ALT 59 U/L (7-56) H 03/18/18 08:50 Alkaline Phosphatase 67 U/L (38-126) 03/18/18 08:50 Total Protein 6.4 g/dL (5.8-8.3) 03/18/18 08:50 Albumin 3.6 g/dL (3.0-4.8) 03/18/18 08:50 Globulin 2.9 gm/dL 03/18/18 08:50 Albumin/Globulin Ratio 1.3 (1.1-1.8) 03/18/18 08:50 Thyroxine (T4) 6.7 ug/dL (5.5-11.0) 03/12/18 06:00 TSH 3rd Generation 14.30 mIU/mL (0.46-4.68) H 03/12/18 06:00 Attending/Attestation - Attestation I have personally seen and examined this patient.: Yes I have fully participated in the care of the patient.: Yes I have reviewed all pertinent clinical information, including history, physical exam and plan: Yes Notes (Text): Please note this DC summary is for 03/19/18. Patient seen and examined by me with resident at 10:20AM and prior to discharge on 03/19/18. Case including discharge plan discussed with resident. Agree with above with following additions/corrections. Patient is an 82-year-old female past medical history significant for hypertension, hyperlipidemia, type 2 diabetes, breast cancer status post lumpectomy, and coronary artery disease status post CABG that presented to the emergency room with confusion and altered mental status on 03/05/18. Patient treated and transferred to TCU on 03/10/18 for gait instability. Please see H&P for full details. Patient was admitted with gait instability, bilateral pleural effusions, acute systolic CHF, NSTEMI, toxic metabolic encephalopathy, UTI, transaminitis, anemia, hypothyroidism, and sternotomy wound. Patient was doing well with physical therapy. Patient was continued on Lasix for pleural effusions and acute systolic CHF which resolved. Patient was placed on Lasix PO prior to discharge. Chest xray on03/13/18 per radiologist shows stable bilateral infiltrates/pleural effusions. Patient was treated with Zosyn. ID was following. 2d echo showed moderately reduced LV function, EF 43%. Cardiology was following. HgbA1C was 9.7. Insulin was adjusted daily by cargo checker. Patient was found to have E.Coli UTI and was treated with Zosyn. Transaminitis was likely secondary to ischemic hepatitis and did improve. Abdominal ultrasound per radiologist showed interval grossly abnormal appearing gallbladder with mural thickening in [place] complicated pericholecystic fluid/phlegmon potentially reflecting abscess, no sonographic evidence of biliary tree dilatation however acalculous cholecystitis is in question, mild to moderate abdominal ascites, pancreas completely obscured by overlying bowel gas. CT abdomen and pelvis per radiologist showed no evidence of right upper quadrant abscess, large bilateral pleural effusions with compressive atelectasis, pelvic ascites with anasarca, colonic diverticulosis, leiomyomatous uterus. Patient was also found to have anemia. H&H remained stable. Patient was evaluated by GI and was continued on protonix. Patient was continued on synthroid for hypothyroidism. Wound culture from area of sternotomy wire was positive for Corynebacterium. Patient completed Zosyn. Patient was advised by channel business manager to follow-up with [facility] for removal of wire. Patient was doing much better. Daughter was made aware. Medications and follow up instructions were reviewed with daughter. Patient was cleared for discharge by all consultants. Patient was discharged home. On day of discharge, patient stated she was feeling better and was ready to go home. Patient was doing well with physical therapy. Patient aware of fluctuations in blood sugar and knows to check her blood sugars regularly and before taking insulin. Patient denies shortness of breath. No chest pain or palpitations. No nausea, vomiting, or abdominal pain. No headaches or dizziness. No lightheadedness. No fevers or chills. No diarrhea or constipation. No dysuria. Physical exam: General: Awake and alert lying in bed in no acute distress HEENT: Normocephalic, atraumatic. Extraocular muscles intact, pupils equal and reactive, no scleral icterus. Oropharynx is pink and moist. Neck is supple. Cardiovascular: Regular rhythm. Normal S1 and S2. Positive systolic murmur. No rubs or gallops appreciated Pulmonary: Normal respiratory effort. Improved breath sounds bilaterally. No rhonchi, rales, or wheezing appreciated. Gastrointestinal: Soft, nondistended. Nontender. Positive bowel sounds all 4 quadrants. No guarding. Musculoskeletal: Moves all extremities. No edema appreciated. No calf tenderness. Central nervous system: AAO x 2. Not oriented to time. Dermatologic: Skin warm and dry.Anterior chest wound with exposure of sternotomy wire; dressing clean, dry, and intact. No signs of infection (has been there for 2 years per patient). Please see chart for full details. Follow up instructions: Patient to follow up with primary care doctor within 3-5 days. Patient to take all medications as prescribed. Patient to check blood sugars before taking insulin. Patient to not take insulin if skipping meals or if blood sugars less than 100. Patient to follow up with channel business manager within one week. Patient to follow up with cardiothoracic surgeon at [facility] for evaluation of sternotomy wire. All instructions explained to the patient in detail. Patient both understands and agrees to all instructions. Written instructions also given. Time spent in discharging the patient including chart review, medication reconciliation, discussion with the patient, medical record clerk, consultants, and nursing staff was 45 minutes.
[2018-03-19 17:05] VITALS: BP 161/68; PULSE 67; TEMP 98.7; O2SAT 97
--- NOTE | 2018-03-19 20:08 | PN ---
DATE: 03/19/2018 [facility] SUBJECTIVE: This is an 82-year-old female with recent uncontrolled type 2 insulin requiring diabetes now being followed closely for metabolic management. Her glycemic levels are so extreme because of the variability of her oral intake and at mid morning today she developed hypoglycemia with a glucose level of 34 mg/dL. Her latest glucose level now is 136 mg/dL and it was 216 early this morning before breakfast was given. Her bedtime glucose was also elevated at 329 mg/dL. So at this time we will modify once again her basal and bolus insulin regimen and lower the Humalog down to 4 units subcu three times a day before meals as ordered. We will continue the low dose basal insulin with Levemir to be given as 10 units subcu at bedtime daily as given. We will also continue the Humalog given as 4 units three times a day before meals as ordered. We will obtain serum chemistries and supplement accordingly as needed. We will follow the advice accordingly. Myrtle Moon MD
[2018-03-19] MEDS ORDERED: Insulin Detemir 100 units/ml Vial (Levemir) SC SCH (22:00)
== END 2018-03-19 18:54 | disposition home health service (06) | DRG 637 ==
LOC: TRCU 18:35
PROVIDERS: ADMIT Hospitalist; ATTEND Hospitalist
PROC: F07Z9ZZ Gait Training/Functional Ambulation Treatment (ICD-10-PCS; principal; 2018-03-11)
PROC: F07M6ZZ Therapeutic Exercise Treatment of Musculoskeletal System - Whole Body (ICD-10-PCS; 2018-03-11)
PROC: F08Z1ZZ Dressing Techniques Treatment (ICD-10-PCS; 2018-03-11)
PROC: F08Z2ZZ Grooming/Personal Hygiene Treatment (ICD-10-PCS; 2018-03-11)
PROC: F08Z0ZZ Bathing/Showering Techniques Treatment (ICD-10-PCS; 2018-03-11)
PROC: F08Z4ZZ Home Management Treatment (ICD-10-PCS; 2018-03-11)
DX: E11.10 Type 2 diabetes mellitus with ketoacidosis without coma (principal); G92 Toxic encephalopathy; I21.4 Non-ST elevation (NSTEMI) myocardial infarction; I50.21 Acute systolic (congestive) heart failure; N39.0 Urinary tract infection, site not specified; R18.8 Other ascites; B96.20 Unspecified Escherichia coli [E. coli] as the cause of diseases classified elsewhere; Z85.3 Personal history of malignant neoplasm of breast; D64.9 Anemia, unspecified; E03.9 Hypothyroidism, unspecified; E11.649 Type 2 diabetes mellitus with hypoglycemia without coma; E78.00 Pure hypercholesterolemia, unspecified; E78.5 Hyperlipidemia, unspecified; E86.0 Dehydration; I08.1 Rheumatic disorders of both mitral and tricuspid valves; I11.0 Hypertensive heart disease with heart failure; I45.10 Unspecified right bundle-branch block; I25.10 Atherosclerotic heart disease of native coronary artery without angina pectoris; K75.89 Other specified inflammatory liver diseases; Z66 Do not resuscitate; Z79.4 Long term (current) use of insulin; Z79.890 Hormone replacement therapy; Z82.49 Family history of ischemic heart disease and other diseases of the circulatory system; Z95.1 Presence of aortocoronary bypass graft

== ENCOUNTER 2018-05-02 10:37 | Observation (INO) | payer MEDICARE, BC ==
--- NOTE | 2018-05-02 11:04 | ED PDOC ---
Arrival/HPI - General Chief Complaint: Weakness/Neurological Deficit Time Seen by Provider: 05/02/18 10:38 Historian: Patient, Family - History of Present Illness Narrative History of Present Illness (Text): 05/02/18 11:02 82 year old female, with past medical history of hypertension, CAD, triple bypass, and diabetes2, presents to emergency department with complaints of low blood sugar this morning. Family member reports patient woke up confused. Patient reportedly took Lantus last night and was given juice and a sandwich for low blood glucose levels this morning. Patient denies any complaints. Time/Duration: Other (this morning ) Symptom Onset: Gradual Symptom Course: Improving Activities at Onset: Light Context: Home Past Medical History - Provider Review Nursing Documentation Reviewed: Yes - Infectious Disease Hx of Infectious Diseases: None - Cardiac Hx Cardiac Disorders: Yes Hx Hypertension: Yes - Pulmonary Hx Respiratory Disorders: No - Neurological Hx Neurological Disorder: No - HEENT Hx HEENT Disorder: No - Renal Hx Renal Disorder: No - Endocrine/Metabolic Hx Diabetes Mellitus Type 2: Yes Hx Hypothyroidism: Yes - Hematological/Oncological Hx Blood Disorders: No - Integumentary Hx Dermatological Disorder: No - Musculoskeletal/Rheumatological Hx Falls: Yes - Gastrointestinal Hx Gastrointestinal Disorders: No - Genitourinary/Gynecological Hx Reproductive Disorders: No - Psychiatric Hx Psychophysiologic Disorder: No Hx Substance Use: No - Surgical History Hx Open Heart Surgery: Yes (CABG x2) Other/Comment: breast Ca R lumphectomy - Anesthesia Hx Anesthesia: Yes Hx Anesthesia Reactions: No Hx Malignant Hyperthermia: No - Suicidal Assessment Feels Threatened In Home Enviroment: No Family/Social History - Physician Review Nursing Documentation Reviewed: Yes Family/Social History: Unknown Family HX Smoking Status: Never Smoked Hx Alcohol Use: No Hx Substance Use: No Allergies/Home Meds Allergies/Adverse Reactions: Allergies No Known Allergies Allergy (Verified 03/05/18 09:24) Review of Systems - Physician Review All systems were reviewed & negative as marked: Yes - Review of Systems Constitutional: absent: Fevers Respiratory: absent: SOB, Cough, Wheezing Cardiovascular: absent: Chest Pain Gastrointestinal: absent: Abdominal Pain, Diarrhea, Nausea, Vomiting Genitourinary Female: absent: Urine Output Changes Musculoskeletal: absent: Back Pain, Neck Pain Skin: absent: Rash Neurological: absent: Headache, Dizziness Hemo/Lymphatic: Other (low blood sugar levels ) Physical Exam Vital Signs Reviewed: Yes Vital Signs Temp Pulse Resp BP Pulse Ox 05/02/18 10:57 66 16 162/59 H 98 05/02/18 10:37 97.4 F L 67 18 162/59 H 99 Temperature: Afebrile Blood Pressure: Normal Pulse: Regular Respiratory Rate: Normal Appearance: Positive for: Well-Appearing, Non-Toxic, Comfortable Pain Distress: None Mental Status: Positive for: Alert and Oriented X 3 Finger Stick Blood Glucose: 128 - Systems Exam Head: Present: Atraumatic, Normocephalic Pupils: Present: PERRL Extroacular Muscles: Present: EOMI Conjunctiva: Present: Normal Mouth: Present: Moist Mucous Membranes Neck: Present: Normal Range of Motion Respiratory/Chest: Present: Clear to Auscultation, Good Air Exchange. No: Respiratory Distress, Accessory Muscle Use Cardiovascular: Present: Regular Rate and Rhythm, Normal S1, S2. No: Murmurs Abdomen: No: Tenderness, Distention, Peritoneal Signs Back: Present: Normal Inspection Upper Extremity: Present: Normal Inspection. No: Cyanosis, Edema Lower Extremity: Present: Normal Inspection. No: Edema Neurological: Present: GCS=15, CN II-XII Intact, Speech Normal Skin: Present: Warm, Dry, Normal Color. No: Rashes Psychiatric: Present: Alert, Oriented x 3, Normal Insight, Normal Concentration Medical Decision Making ED Course and Treatment: 05/02/18 11:15 Impression: 82 year old female presents to emergency department after having low blood sugar levels this morning. Plan: -- EKG -- Labs -- Chest X-ray -- Urinalysis -- Reassess and disposition Prior Visits: Notes and results from previous visits were reviewed. Progress Notes: 05/02/18 13:17 on la inuslin will obs acepted by hospitlaist. manojyexalate given - RAD Interpretation Narrative RAD Interpretations (Text): 05/02/18 12:20 Chest X-ray , reviewed by radiologist: IMPRESSION: No active disease. Radiology Orders: 05/02/18 11:00 CHEST PORTABLE [RAD] Stat Health Information Coder: Radiologist - EKG Interpretation EKG Interpretation (Text): 05/02/18 11:20 EKG: Ordered, reviewed, and independently interpreted the EKG. Rate : 65 BPM Rhythm : NSR Interpretation : poor tracing secondary to artifact, non specific ST changes Interpreted by ED Physician: Yes Type: 12 lead EKG - Scribe Statement The provider has reviewed the documentation as recorded by the Scribe Austyn Pederson All medical record entries made by the Scribe were at my direction and personally dictated by me. I have reviewed the chart and agree that the record accurately reflects my personal performance of the history, physical exam, medic al decision making, and the department course for this patient. I have also personally directed, reviewed, and agree with the discharge instructions and disposition. Disposition/Present on Arrival - Present on Arrival Any Indicators Present on Arrival: No History of DVT/PE: No History of Uncontrolled Diabetes: Yes Urinary Catheter: No History of Decub. Ulcer: No History Surgical Site Infection Following: None - Disposition Have Diagnosis and Disposition been Completed?: Yes Diagnosis: Hypoglycemia, Hyperkalemia Disposition: HOSPITALIZED Disposition Time: 11:00 Condition: STABLE
[2018-05-02 11:47] LABS: BASO # 0.01 K/mm3 (0.0-2.0); BASO % 0.2 % (0.0-3.0); EOS % 0.5 % (1.5-5.0); HEMOGLOBIN 12.4 g/dL (12.0-16.0); LYMPH # 0.6 (1.2-3.4); MEAN CELL VOLUME 93.1 fl (80.0-105.0); MEAN CORPUSCULAR HEMOGLOBIN 30.8 pg (25.0-35.0); MEAN CORPUSCULAR HGB CONC 33.1 g/dl (31.0-37.0); MEAN PLATELET VOLUME 9.5 fl (7.0-11.0); MONO # 0.6 (0.1-0.6); MONO % 9.4 % (1.0-6.0); RBC 4.03 10^6/uL (3.5-6.1); RED CELL DISTRIBUTION WIDTH 14.2 % (11.5-14.5); WHITE BLOOD COUNT 6.5 10^3/uL (4.5-11.0)
[2018-05-02 11:50] LABS: ALB/GLOB RATIO 1.3 (1.1-1.8); ALBUMIN 4.3 g/dL (3.0-4.8); ALT/SGPT 26 U/L (7-56); AST/SGOT 48 U/L (14-36); BLOOD UREA NITROGEN 18 mg/dL (7-21); CALCIUM 9.4 mg/dL (8.4-10.5); GFR NON-AFRICAN AMERICAN > 60
[2018-05-02 11:53] LABS: INR 1.04; PARTIAL THROMBOPLASTIN TIME 29.1 Seconds (26.9-38.3); PROTHROMBIN TIME 11.8 SECONDS (9.4-12.5)
[2018-05-02 11:55] LABS: TROPONIN I 0.01 ng/mL
[2018-05-02] MEDS ORDERED: Dextrose 5%/0.45% NS 1,000 ML IV SCH (12:00)
--- NOTE | 2018-05-02 12:18 | RAD ---
Date of service: 05/02/2018 HISTORY: ams COMPARISON: 03/16/2018 FINDINGS: LUNGS: No active pulmonary disease. PLEURA: No significant pleural effusion identified, no pneumothorax apparent. CARDIOVASCULAR: No aortic atherosclerotic calcification present. Normal cardiac size. No pulmonary vascular congestion. OSSEOUS STRUCTURES: Sternal wires VISUALIZED UPPER ABDOMEN: Normal. OTHER FINDINGS: None. IMPRESSION: No active disease.
[2018-05-02 14:20] VITALS: BMI 21.0
--- NOTE | 2018-05-02 15:21 | CP.PCM.HP ---
<Chuy Arnold - Last Filed: 05/02/18 15:25> History of Present Illness - History of Present Illness History of Present Illness: Chuy Arnold PGY2 IM H&P Note for Dr. Atkinson cc: hypoglycemia/confusion Ms. Ceja is an 82 year old female with a PMH of CAD s/p CABG x2, DM2, HTN, HLD, Breast Cancer (s/p lumpectomy in remission) who presented to the ED accompanied by her daughter for confusion this morning associated with hypoglycemia. The patient has a blood sugar log, which shows BS 580 last night and 65 this AM, which is lower than her usual ranges; patient states that she has a good appetite. The patient had orange juice and a sandwich which improved her symptoms. Per the daughter, the patient has been becoming unreliable and forgetful regarding her insulin regimen, sometimes taking too much and sometimes forgetting to take it completed. Dr. Carranza (her PMD) has been working on simplifying the regimen, and the patient has been on 5u AC humalog and 15u HS Lantus since the last time when she was discharged from the hospital with DKA. Prior to that visit, the patient was admitted for hypoglycemia. The daughter also states that the patient has been refusing caregiver services home, as it makes her feel like she has a snowsport instructor and losing her independence. The patient is alert and oriented but is agreeable that she needs help, but feels like she can still manage her own diabetes. 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 She denies any recent illness, fevers/chills, n/v/d, dysuria, cough, chest pain or shortness of breath. 12-pt ROS was reviewed and is otherwise unremarkable. PMD: Dr. Carranza PMH: HTN, HLD, DM, Breast Cancer and CABGx2 (1982 and 1995) PSH: left breast Lumpectomy, CABG x2 Home meds: ASA, lisinopril, insulin Lispro 5u AC and Lantus 15u HS, levothyroxine, simvastatin All: NKDA Social: ambulates w/o assistive devices, lives [place] (has home health aide on weekends), no hx of drug, tobacco or EtOH use Family Hx: unremarkable Present on Admission - Present on Admission Any Indicators Present on Admission: No Review of Systems - Review of Systems All systems: reviewed and no additional remarkable complaints except (as per HPI) Past Patient History - Infectious Disease Hx of Infectious Diseases: None - Past Medical History & Family History Past Medical History?: Yes Past Family History: Reviewed and not pertinent - Past Social History Smoking Status: Never Smoked Alcohol: None Drugs: Denies Home Situation {Lives}: Alone - CARDIAC Hx Cardiac Disorders: Yes Hx Hypertension: Yes - PULMONARY Hx Respiratory Disorders: No - NEUROLOGICAL Hx Neurological Disorder: No - HEENT Hx HEENT Problems: No - RENAL Hx Chronic Kidney Disease: No - ENDOCRINE/METABOLIC Hx Diabetes Mellitus Type 2: Yes Hx Hypothyroidism: Yes - HEMATOLOGICAL/ONCOLOGICAL Hx Blood Disorders: No - INTEGUMENTARY Hx Dermatological Problems: No - MUSCULOSKELETAL/RHEUMATOLOGICAL Hx Falls: No - GASTROINTESTINAL Hx Gastrointestinal Disorders: No - GENITOURINARY/GYNECOLOGICAL Hx Genitourinary Disorders: No - PSYCHIATRIC Hx Psychophysiologic Disorder: No - SURGICAL HISTORY Hx Open Heart Surgery: Yes (CABG x2) Other/Comment: breast Ca R lumphectomy - ANESTHESIA Hx Anesthesia: Yes Hx Anesthesia Reactions: No Hx Malignant Hyperthermia: No Meds Home Medications: Home Medication List Medication Instructions Recorded Confirmed Type Aspirin [Aspirin Chewable] 81 mg PO DAILY #14 chew 05/04/18 Rx Carvedilol [Coreg] 12.5 mg PO BID #28 tab 05/04/18 Rx Furosemide [Lasix] 20 mg PO DAILY #14 tab 05/04/18 Rx Insulin Detemir [Levemir] 14 unit SC HS #1 unit 05/04/18 Rx Insulin Lispro [Humalog (Insulin 6 unit SQ AC #1 cartridge 05/04/18 Rx Lispro)] Isosorbide Mononitrate [Imdur] 60 mg PO DAILY #14 tab 05/04/18 Rx Levothyroxine [Synthroid] 125 mcg PO 0600 #14 tab 05/04/18 Rx Lisinopril [Zestril] 2.5 mg PO DAILY #14 tab 05/04/18 Rx Allergies/Adverse Reactions: Allergies Allergy/AdvReac Type Severity Reaction Status Date / Time No Known Allergies Allergy Verified 03/05/18 09:24 Physical Exam - Constitutional Appears: Well, Non-toxic, No Acute Distress - Head Exam Head Exam: ATRAUMATIC, NORMAL INSPECTION - Eye Exam Eye Exam: EOMI, Normal appearance, PERRL Pupil Exam: NORMAL ACCOMODATION, PERRL - ENT Exam ENT Exam: Mucous Membranes Moist, Normal Exam - Neck Exam Neck exam: Positive for: Normal Inspection - Respiratory Exam Respiratory Exam: Clear to Auscultation Bilateral, NORMAL BREATHING PATTERN. absent: Rhonchi, Wheezes - Cardiovascular Exam Cardiovascular Exam: RRR, +S1, +S2. absent: Systolic Murmur Additional comments: sternotomy wire exposed superficially - GI/Abdominal Exam GI & Abdominal Exam: Normal Bowel Sounds, Soft. absent: Distended, Guarding, Tenderness - Extremities Exam Extremities exam: Positive for: full ROM, normal inspection, pedal pulses present. Negative for: pedal edema, tenderness - Back Exam Back exam: absent: CVA tenderness (L), CVA tenderness (R) Additional comments: scoliosis noted - Neurological Exam Neurological exam: Alert, CN II-XII Intact, Normal Gait, Oriented x3, Reflexes Normal - Psychiatric Exam Psychiatric exam: Normal Affect, Normal Mood - Skin Skin Exam: Dry, Intact, Normal Color, Warm Results - Vital Signs Recent Vital Signs: Last Vital Signs Temp 97.4 F L 05/02/18 10:37 Pulse 74 05/02/18 14:22 Resp 18 05/02/18 14:22 BP 152/64 H 05/02/18 14:22 Pulse Ox 98 05/02/18 14:22 - Labs Result Diagrams: 05/02/18 11:20 05/02/18 11:20 Labs: Laboratory Results - last 24 hr 05/02/18 05/02/18 05/02/18 10:44 11:20 11:20 WBC 6.5 D RBC 4.03 Hgb 12.4 Hct 37.5 MCV 93.1 MCH 30.8 MCHC 33.1 RDW 14.2 Plt Count 313 MPV 9.5 Neut % (Auto) 80.9 H Lymph % (Auto) 9.0 L [place] % (Auto) 9.4 H Eos % (Auto) 0.5 L Baso % (Auto) 0.2 Lymph # (Auto) 0.6 L [place] # (Auto) 0.6 Eos # (Auto) 0.0 Baso # (Auto) 0.01 Absolute Neuts (auto) 5.23 PT 11.8 INR 1.04 APTT 29.1 Sodium Potassium Chloride Carbon Dioxide Anion Gap BUN Creatinine Est GFR ( Amer) Est GFR (Non-Af Amer) POC Glucose (mg/dL) 128 H Random Glucose Calcium Magnesium Total Bilirubin AST ALT Alkaline Phosphatase Lactate Dehydrogenase Total Creatine Kinase Troponin I Total Protein Albumin Globulin Albumin/Globulin Ratio 05/02/18 05/02/18 11:20 14:26 WBC RBC Hgb Hct MCV MCH MCHC RDW Plt Count MPV Neut % (Auto) Lymph % (Auto) [place] % (Auto) Eos % (Auto) Baso % (Auto) Lymph # (Auto) [place] # (Auto) Eos # (Auto) Baso # (Auto) Absolute Neuts (auto) PT INR APTT Sodium 134 Potassium 5.6 H* D Chloride 99 Carbon Dioxide 29 Anion Gap 11 BUN 18 Creatinine 0.6 L Est GFR ( Amer) > 60 Est GFR (Non-Af Amer) > 60 POC Glucose (mg/dL) 353 H Random Glucose 211 H Calcium 9.4 Magnesium 2.1 Total Bilirubin 0.8 AST 48 H D ALT 26 Alkaline Phosphatase 83 Lactate Dehydrogenase 658 Total Creatine Kinase 140 Troponin I 0.01 D Total Protein 7.6 Albumin 4.3 Globulin 3.3 Albumin/Globulin Ratio 1.3 Assessment & Plan - Assessment and Plan (Free Text) Assessment: 82 year old female with a PMH of CAD s/p CABG x2, DM2, HTN, HLD, Breast Cancer (s/p lumpectomy in remission) who presented to the ED accompanied by her daughter for confusion and slurring of speech this morning associated with hypoglycemia. Patient's mental status improved, however, her glucose levels and insulin regimen need to be monitored, and SW planning is required for placement or health aid appointing for prevention of glucose-related morbidities down the line. Plan: Symptomatic Hypoglycemia - improved w/ food and D5W infusion - d/c D5W at this time - cont Long acting insulin 15u - will monitor on ISS - Accuchecks ACHS - Hypoglycemia protocol - Carb consistent diet - SW referral for home health aide and d/c planning - diabetic education referral Hyperkalemia - Kayexalate was given - monitor BMP tonight - repeat CMP tomorrow CAD - cont BB, ACEi, diuretic, statin, ASA and Imdur Hypothyroidism - cont Synthroid home dose PPX - Lovenox for DVT ppx - GI ppx not indicated PT eval ordered Patient was seen, examined and discussed with Dr. Demetrio Arnold PGY2 <Sadia Atkinson - Last Filed: 05/10/18 15:34> Results - Vital Signs Recent Vital Signs: Last Vital Signs Temp 97.8 F 05/04/18 08:11 Pulse 70 05/04/18 08:11 Resp 20 05/04/18 08:11 BP 173/70 H 05/04/18 09:21 Pulse Ox 98 05/04/18 08:11 - Labs Result Diagrams: 05/04/18 06:00 05/04/18 06:00 Attending/Attestation - Attestation I have personally seen and examined this patient.: Yes I have fully participated in the care of the patient.: Yes I have reviewed all pertinent clinical information: Yes Notes (Text): 05/10/18 15:30 Attending note: Patient seen and examined with resident in ER. patient's daughter by the bedside. Patient is currently alert and awake. Initially brought in for confusion due to hypoglycemia. Patient is an 82-year-old female past medical history significant for hypertension, hyperlipidemia, type 2 diabetes, breast cancer status post lumpectomy, DKA, altered mental status, and coronary artery disease status post CABG that presented to the emergency room with hypoglycemia and confusion. 1. Hypoglycemia in Type 1 DM. Resolved. Monitor closely. Importance of allowing home health aide to assist discussed with patient in detail. Also discussed with patient's daughter. Continue to monitor accuchecks. 2. Confusion. Secondary to hypoglycemia. Resolved. Continue to monitor. 3. Hyperkalemia. S/P kayexelate. Continue to monitor. 4. CAD S/P CABG. Continue home ASA, lipitor, Imdur, Coreg. No acute issues. No chest pain. 5. Hypothyroidism. Continue home synthroid 6. Essential hypertension. Continue home Imdur, Coreg, Lasix, and Lisinopril. 7. Hyperlipidemia. Continue lipitor 8. DVT prophylaxis. Lovenox 9. Advanced directive. Patient is a DNR/DNI. caseworker evaluation for discharge planning requested.
[2018-05-02] MEDS ORDERED: Dextrose 50% SYRINGE Inj (50 ml) IV PRN (15:50)
[2018-05-02] MEDS: Insulin Lispro (humaLOG) MEDIUM Coverage SC SCH (17:43)
[2018-05-02 18:07] LABS: BLOOD UREA NITROGEN 19 mg/dL (7-21); CALCIUM 9.4 mg/dL (8.4-10.5); GFR NON-AFRICAN AMERICAN > 60
[2018-05-02 19:28] LABS: PH,URINE 6.5 (4.7-8.0); URINE APPEARANCE CLEAR (CLEAR); URINE BILIRUBIN NEGATIVE (NEGATIVE); URINE BLOOD NEGATIVE (NEGATIVE); URINE COLOR YELLOW (YELLOW); URINE GLUCOSE (UA) >=1000 mg/dL (NEGATIVE); URINE LEUKOCYTE ESTERASE TRACE Leu/uL (NEGATIVE); URINE PROTEIN NEGATIVE mg/dL (<30 mg/dL); URINE UROBILINOGEN 0.2 E.U./dL (<1 E.U./dL)
[2018-05-02 19:29] LABS: URINE AMORPHOUS SEDIMENT TRACE /hpf
[2018-05-02] MEDS ORDERED: Insulin Regular 1 UNITS/0.01 ML ML SC STA (19:51)
[2018-05-02] MEDS ORDERED: Dextrose 50% SYRINGE Inj (50 ml) IVP STA (19:52)
--- NOTE | 2018-05-02 20:44 | CARD ---
APPROVED REPORT Date of service: 05/02/2018 EKG Measurement Heart [id number] <Conclusion> Sinus rhythm with short MT No delta wave Possible Left atrial enlargement Cannot rule out Anterior infarct, age undetermined Abnormal ECG
[2018-05-02] MEDS ORDERED: Insulin Detemir 100 units/ml Vial (Levemir) SC SCH (22:00)
[2018-05-03] MEDS: Levothyroxine 125 MCG TAB PO SCH (05:29)
[2018-05-03 07:09] LABS: ALB/GLOB RATIO 1.2 (1.1-1.8); ALBUMIN 3.5 g/dL (3.0-4.8); ALT/SGPT 22 U/L (7-56); AST/SGOT 54 U/L (14-36); BLOOD UREA NITROGEN 16 mg/dL (7-21); CALCIUM 8.7 mg/dL (8.4-10.5); GFR NON-AFRICAN AMERICAN > 60
--- NOTE | 2018-05-03 07:48 | CP.PCM.PN ---
<Deep Be - Last Filed: 05/03/18 15:49> Subjective - Date & Time of Evaluation Date of Evaluation: 05/03/18 Time of Evaluation: 07:48 - Subjective Subjective: Deep Be DO, PGY-1 Hospitalist Progress Note for Dr. Maurice Shannon Patient was seen and examined at bedside this AM. She reports feeling well this AM and offers no new complaints. She denies fever/chills, CP, SOB, cough, dyspnea on exertion, peripheral numbness/tingling, or urinary complaints. Objective - Vital Signs/Intake and Output Vital Signs (last 24 hours): Temp Pulse Resp BP Pulse Ox 97.4 F L 76 18 158/67 H 98 05/02/18 10:37 05/03/18 05:53 05/02/18 14:22 05/02/18 17:42 05/02/18 14:22 Intake and Output: 05/03/18 05/03/18 06:59 18:59 Intake Total 0 Balance 0 - Medications Medications: Current Medications Aspirin (Aspirin Chewable) 81 mg PO DAILY [facility] Last Admin: 05/02/18 14:48 Dose: 81 mg Atorvastatin Calcium (Lipitor) 10 mg PO DIN [facility] Carvedilol (Coreg) 12.5 mg PO BID [facility] Last Admin: 05/02/18 17:42 Dose: 12.5 mg Dextrose (Dextrose 50% Inj) 0 ml IV STAT PRN; Protocol PRN Reason: Hypoglycemia Protocol Enoxaparin Sodium (Lovenox) 40 mg SC DAILY [facility]; Protocol Furosemide (Lasix) 20 mg PO DAILY [facility] Dextrose (Dextrose 5% In Water 1000 Ml) 1,000 mls @ 0 mls/hr IV .Q0M PRN; Protocol PRN Reason: Hypoglycemia Protocol Insulin Detemir (Levemir) 15 unit SC HS [facility] Last Admin: 05/02/18 22:51 Dose: Not Given Insulin Human Lispro (Humalog Med) 0 units SC AC [facility]; Protocol Last Admin: 05/02/18 17:43 Dose: 7 units Isosorbide Mononitrate (Imdur) 60 mg PO DAILY [facility] Levothyroxine Sodium (Synthroid) 125 mcg PO 0600 [facility] Last Admin: 05/03/18 05:29 Dose: 125 mcg Lisinopril (Zestril) 2.5 mg PO DAILY [facility] - Labs Labs: 05/02/18 11:20 05/03/18 06:15 PT 11.8 SECONDS (9.4-12.5) 05/02/18 11:20 INR 1.04 05/02/18 11:20 APTT 29.1 Seconds (26.9-38.3) 05/02/18 11:20 - Constitutional Appears: Non-toxic, No Acute Distress - Head Exam Head Exam: ATRAUMATIC, NORMOCEPHALIC - Eye Exam Eye Exam: EOMI, PERRL - ENT Exam ENT Exam: Mucous Membranes Moist - Neck Exam Neck Exam: Full ROM, Normal Inspection - Respiratory Exam Respiratory Exam: Clear to Ausculation Bilateral, NORMAL BREATHING PATTERN. absent: Rales, Rhonchi, Wheezes - Cardiovascular Exam Cardiovascular Exam: REGULAR RHYTHM, RRR, +S1, +S2. absent: Gallop, Rubs, Murmur - GI/Abdominal Exam GI & Abdominal Exam: Soft, Normal Bowel Sounds. absent: Guarding, Tenderness - Extremities Exam Extremities Exam: Full ROM. absent: Pedal Edema - Back Exam Back Exam: NORMAL INSPECTION - Neurological Exam Neurological Exam: Alert, Awake, Oriented x3 - Psychiatric Exam Psychiatric exam: Normal Affect, Normal Mood - Skin Skin Exam: Dry, Intact, Warm Assessment and Plan - Assessment and Plan (Free Text) Assessment: 82 yo F with PMH of DM1, CAD (s/p CABG x 2), hypothyroidism, HTN, and HLD presented with AMS 2/2 hypoglycemia. Hypoglycemia has now resolved and patient's mental status is improved. Plan: Altered mental status 2/2 hypoglycemic episode Has resolved Continue to monitor fingerstick glucose ACHS Hypoglycemic protocol as needed Per endocrinology, decrease home levemir to 10 u HS and humalog 4 u AC Per daughter, patient has refused care from several home health aids in the past Informed patient that she needs additional home care as this is her second similar episode Endocrinology following, all recs appreciated Hyperkalemia Resolved this AM Continue to monitor Hyponatremia Most likely 2/2 pseudohyponatremia from hyperglycemia Corrected Na is 132-133 Continue to monitor DM1 with hyperglycemia Continue ISS while admitted Continue fingerstick glucose ACHS F/u additional endocrinology recs Hx CAD Continue ASA, lipitor, coreg, lasix, imdur Hx hypothyroidism Continue home synthroid Hx HTN Continue lisinopril DVT/GI PPX: Lovenox/protonix Full Code Heart healthy, consistent CHO diet D/c telemetry Patient seen, examined, and plan discussed with my attending Dr. Maurice Be D.O. IM Resident PGY-1 Pager: [phone] <Katarina Shannon R - Last Filed: 05/04/18 14:02> Objective - Vital Signs/Intake and Output Vital Signs (last 24 hours): Temp Pulse Resp BP Pulse Ox 97.8 F 70 20 173/70 H 98 05/04/18 08:11 05/04/18 08:11 05/04/18 08:11 05/04/18 09:21 05/04/18 08:11 Intake and Output: 05/04/18 05/04/18 06:59 18:59 Intake Total 840 Balance 840 - Medications Medications: Current Medications Aspirin (Aspirin Chewable) 81 mg PO DAILY [facility] Last Admin: 05/04/18 09:20 Dose: 81 mg Atorvastatin Calcium (Lipitor) 10 mg PO DIN [facility] Last Admin: 05/03/18 18:03 Dose: 10 mg Carvedilol (Coreg) 12.5 mg PO BID [facility] Last Admin: 05/04/18 09:20 Dose: 12.5 mg Dextrose (Dextrose 50% Inj) 0 ml IV STAT PRN; Protocol PRN Reason: Hypoglycemia Protocol Enoxaparin Sodium (Lovenox) 40 mg SC DAILY [facility]; Protocol Last Admin: 05/04/18 09:22 Dose: 40 mg Furosemide (Lasix) 20 mg PO DAILY [facility] Last Admin: 05/04/18 09:21 Dose: 20 mg Dextrose (Dextrose 5% In Water 1000 Ml) 1,000 mls @ 0 mls/hr IV .Q0M PRN; Protocol PRN Reason: Hypoglycemia Protocol Insulin Detemir (Levemir) 14 unit SC HS [facility] Insulin Human Lispro (Humalog Low) 0 units SC ACHS [facility]; Protocol Last Admin: 05/04/18 12:44 Dose: Not Given Insulin Human Lispro (Humalog) 6 units SC AC [facility] Last Admin: 05/04/18 12:43 Dose: 6 units Isosorbide Mononitrate (Imdur) 60 mg PO DAILY [facility] Last Admin: 05/04/18 09:21 Dose: 60 mg Levothyroxine Sodium (Synthroid) 125 mcg PO 0600 [facility] Last Admin: 05/04/18 05:05 Dose: 125 mcg Lisinopril (Zestril) 2.5 mg PO DAILY [facility] Last Admin: 05/04/18 09:21 Dose: 2.5 mg - Labs Labs: 05/04/18 06:00 05/04/18 06:00 PT 11.8 SECONDS (9.4-12.5) 05/02/18 11:20 INR 1.04 05/02/18 11:20 APTT 29.1 Seconds (26.9-38.3) 05/02/18 11:20 Attending/Attestation - Attestation I have personally seen and examined this patient.: Yes I have fully participated in the care of the patient.: Yes I have reviewed all pertinent clinical information, including history, physical exam and plan: Yes Notes (Text): Patient seen and examined by me with resident at 10:35AM on 05/03/18. Case including HPI, physical exam, and assessment and plan discussed with resident. Agree with above with following additions/corrections. Patient is an 82-year-old female past medical history significant for hypertension, hyperlipidemia, type 2 diabetes, breast cancer status post lumpectomy, DKA, altered mental status, and coronary artery disease status post CABG that presented to the emergency room with hypoglycemia and confusion. Patient states that she is feeling better today. Patient no longer feels confused. Patient states that her daughter helps her at home. Patient states that she feels independent and does not like the nurses aides. Importance of allowing the aides to help patient discussed at length with patient. She denies any headaches or dizziness. No lightheadedness. No nausea, vomiting, or abdominal pain. No fevers or chills. No change in vision. No chest pain or shortness of breath. No palpitations. No dysuria. Patient states that she never followed up at [facility], for her sternotomy wire as she was advised to do at her last admission. Importance of follow up discussed at length with patient. Physical exam: General: Awake and alert lying in bed in no acute distress HEENT: Normocephalic, atraumatic. Extraocular muscles intact, pupils equal and reactive, no scleral icterus. Oropharynx is pink and moist. Neck is supple. Cardiovascular: Regular rhythm. Normal S1 and S2. Positive systolic murmur. No rubs or gallops appreciated Pulmonary: Normal respiratory effort. No rhonchi, rales, or wheezing appreciate d. Gastrointestinal: Soft, nondistended. Nontender. Positive bowel sounds all 4 quadrants. No guarding. Musculoskeletal: Moves all extremities. No edema appreciated. No calf tenderness. Central nervous system: AAO x 3. CN 2-12 grossly intact Dermatologic: Skin warm and dry.Anterior chest with wound with sternotomy wire, no signs of infection. Assessment and plan: Patient is an 82-year-old female past medical history significant for hypertension, hyperlipidemia, type 2 diabetes, breast cancer status post lumpectomy, DKA, altered mental status, and coronary artery disease status post CABG that presented to the emergency room with hypoglycemia and confusion. 1. Hypoglycemia in Type 1 DM. Resolved. Retail Event Assistant following, insulin adjusted. Importance of allowing home health aide to assist discussed with patient in detail. Also discussed with patient's daughter via phone. Continue to monitor accuchecks. 2. Confusion. Secondary to hypoglycemia. Resolved. Continue to monitor. 3. Hyperkalemia. S/P kayexelate. Resolved. Continue to monitor. 4. CAD S/P CABG. Continue home ASA, lipitor, Imdur, Coreg. No acute issues. No chest pain. 5. Hypothyroidism. Continue blanche synthroid 6. Essential hypertension. Continue home Imdur, Coreg, Lasix, and Lisinopril. 7. Hyperlipidemia. Continue lipitor 8. DVT prophylaxis. Lovenox 9. Advanced directive. Patient is a DNR/DNI. Case was discussed in detail with the patient regarding current diagnosis and treatment plan. All questions answered.
[2018-05-03 08:01] VITALS: RESP 20
[2018-05-03] MEDS: Enoxaparin 40 mg Syringe SC SCH (09:10)
[2018-05-03] MEDS: Insulin Lispro (humaLOG) MEDIUM Coverage SC SCH (09:10)
[2018-05-03] MEDS ORDERED: Insulin Detemir 100 units/ml Vial (Levemir) SC SCH (10:10)
--- NOTE | 2018-05-03 10:13 | CP.PCM.PN ---
Subjective - Date & Time of Evaluation Date of Evaluation: 05/03/18 Time of Evaluation: 09:55 - Subjective Subjective: Nico Pacheco D.O. PGY-3, Internal Medicine Resident, Endocrinology Progress Note Objective - Vital Signs/Intake and Output Vital Signs (last 24 hours): Temp Pulse Resp BP Pulse Ox 98.3 F 76 20 144/75 95 05/03/18 08:01 05/03/18 08:01 05/03/18 08:01 05/03/18 09:09 05/03/18 08:01 Intake and Output: 05/03/18 05/03/18 06:59 18:59 Intake Total 0 Balance 0 - Medications Medications: Current Medications Aspirin (Aspirin Chewable) 81 mg PO DAILY [facility] Last Admin: 05/03/18 09:10 Dose: 81 mg Atorvastatin Calcium (Lipitor) 10 mg PO DIN [facility] Carvedilol (Coreg) 12.5 mg PO BID [facility] Last Admin: 05/03/18 09:09 Dose: 12.5 mg Dextrose (Dextrose 50% Inj) 0 ml IV STAT PRN; Protocol PRN Reason: Hypoglycemia Protocol Enoxaparin Sodium (Lovenox) 40 mg SC DAILY [facility]; Protocol Last Admin: 05/03/18 09:10 Dose: 40 mg Furosemide (Lasix) 20 mg PO DAILY [facility] Last Admin: 05/03/18 09:09 Dose: 20 mg Dextrose (Dextrose 5% In Water 1000 Ml) 1,000 mls @ 0 mls/hr IV .Q0M PRN; Protocol PRN Reason: Hypoglycemia Protocol Insulin Detemir (Levemir) 15 unit SC [facility] Last Admin: 05/02/18 22:51 Dose: Not Given Insulin Human Lispro (Humalog Med) 0 units SC [facility]; Protocol Last Admin: 05/03/18 09:10 Dose: 5 units Isosorbide Mononitrate (Imdur) 60 mg PO DAILY [facility] Last Admin: 05/03/18 09:09 Dose: 60 mg Levothyroxine Sodium (Synthroid) 125 mcg PO 0600 [facility] Last Admin: 05/03/18 05:29 Dose: 125 mcg Lisinopril (Zestril) 2.5 mg PO DAILY [facility] Last Admin: 05/03/18 09:09 Dose: 2.5 mg - Labs Labs: 05/02/18 11:20 05/03/18 06:15 PT 11.8 SECONDS (9.4-12.5) 05/02/18 11:20 INR 1.04 05/02/18 11:20 APTT 29.1 Seconds (26.9-38.3) 05/02/18 11:20 Assessment and Plan - Assessment and Plan (Free Text) Plan: Patient was seen and examined and case will be discussed with attending physician.
--- NOTE | 2018-05-03 10:31 | CP.PCM.CON ---
History of Present Illness - History of Present Illness History of Present Illness: Nico Pacheco D.O. PGY-3, Internal Medicine Resident, Endocrinology Consultation Note 82 year old female with a PMH of HTN, HLD, CABG x2, IDDM type 1 (since 22 years old), breast CA s/p lumpectomy who presented for confusion and was found to be hypoglycemic. Endocrinology consultation was requested for hypoglycemia. Patient was seen and examined at bedside. Patient admits that she has had DM for 60 years and that she knows that she has to keep steady, stable meal intake and is vigilant about her insulin. Patient was actually requesting her insulin already from the nursing staff as her breakfast had arrived. Patient admits that she knows she was hypoglycemic at home a "couple of time" and is unsure as to why. Patient follows with Dr. Barney and has recently had her regimen adjusted. At this time has no acute complaints. Feeling much better. Review of Systems - Review of Systems All systems: reviewed and no additional remarkable complaints except (none) Past Patient History - Infectious Disease Hx of Infectious Diseases: None - Past Medical History & Family History Past Medical History?: Yes Past Family History: Reviewed and not pertinent - Past Social History Smoking Status: Never Smoked Alcohol: None Drugs: Denies Home Situation {Lives}: Alone - CARDIAC Hx Cardiac Disorders: Yes Hx Hypertension: Yes - PULMONARY Hx Respiratory Disorders: No - NEUROLOGICAL Hx Neurological Disorder: No - HEENT Hx HEENT Problems: No - RENAL Hx Chronic Kidney Disease: No - ENDOCRINE/METABOLIC Hx Diabetes Mellitus Type 2: Yes Hx Hypothyroidism: Yes - HEMATOLOGICAL/ONCOLOGICAL Hx Blood Disorders: No - INTEGUMENTARY Hx Dermatological Problems: No - MUSCULOSKELETAL/RHEUMATOLOGICAL Hx Falls: No - GASTROINTESTINAL Hx Gastrointestinal Disorders: No - GENITOURINARY/GYNECOLOGICAL Hx Genitourinary Disorders: No - PSYCHIATRIC Hx Psychophysiologic Disorder: No - SURGICAL HISTORY Hx Open Heart Surgery: Yes (CABG x2) Other/Comment: breast Ca R lumphectomy - ANESTHESIA Hx Anesthesia: Yes Hx Anesthesia Reactions: No Hx Malignant Hyperthermia: No Meds Allergies/Adverse Reactions: Allergies Allergy/AdvReac Type Severity Reaction Status Date / Time No Known Allergies Allergy Verified 03/05/18 09:24 - Medications Medications: Current Medications Aspirin (Aspirin Chewable) 81 mg PO DAILY [facility] Last Admin: 05/03/18 09:10 Dose: 81 mg Atorvastatin Calcium (Lipitor) 10 mg PO DIN [facility] Carvedilol (Coreg) 12.5 mg PO BID [facility] Last Admin: 05/03/18 09:09 Dose: 12.5 mg Dextrose (Dextrose 50% Inj) 0 ml IV STAT PRN; Protocol PRN Reason: Hypoglycemia Protocol Enoxaparin Sodium (Lovenox) 40 mg SC DAILY [facility]; Protocol Last Admin: 05/03/18 09:10 Dose: 40 mg Furosemide (Lasix) 20 mg PO DAILY [facility] Last Admin: 05/03/18 09:09 Dose: 20 mg Dextrose (Dextrose 5% In Water 1000 Ml) 1,000 mls @ 0 mls/hr IV .Q0M PRN; Protocol PRN Reason: Hypoglycemia Protocol Insulin Detemir (Levemir) 10 unit SC [facility] Insulin Human Lispro (Humalog Med) 0 units SC [facility]; Protocol Last Admin: 05/03/18 09:10 Dose: 5 units Isosorbide Mononitrate (Imdur) 60 mg PO DAILY [facility] Last Admin: 05/03/18 09:09 Dose: 60 mg Levothyroxine Sodium (Synthroid) 125 mcg PO 0600 [facility] Last Admin: 05/03/18 05:29 Dose: 125 mcg Lisinopril (Zestril) 2.5 mg PO DAILY [facility] Last Admin: 05/03/18 09:09 Dose: 2.5 mg Physical Exam - Constitutional Appears: Well, Non-toxic, No Acute Distress - Head Exam Head Exam: ATRAUMATIC, NORMOCEPHALIC - Eye Exam Eye Exam: absent: Scleral icterus - ENT Exam ENT Exam: Mucous Membranes Dry, Normal Oropharynx - Neck Exam Neck exam: Negative for: Tenderness - Respiratory Exam Respiratory Exam: absent: Rales, Rhonchi, Wheezes - Cardiovascular Exam Cardiovascular Exam: +S1, +S2 - GI/Abdominal Exam GI & Abdominal Exam: Normal Bowel Sounds, Soft. absent: Distended, Tenderness - Extremities Exam Extremities exam: Negative for: calf tenderness - Neurological Exam Neurological exam: Alert, Oriented x3 - Psychiatric Exam Psychiatric exam: Normal Affect, Normal Mood - Skin Skin Exam: Warm Additional comments: small sternotomy wire poking out through skin at top of sternum, some erythema around edge but no drainage Results - Vital Signs Recent Vital Signs: Last Vital Signs Temp 98.3 F 05/03/18 08:01 Pulse 76 05/03/18 08:01 Resp 20 05/03/18 08:01 BP 144/75 05/03/18 09:09 Pulse Ox 95 05/03/18 08:01 - Labs Result Diagrams: 05/02/18 11:20 05/03/18 06:15 Labs: Laboratory Results - last 24 hr 05/02/18 05/02/18 05/02/18 10:44 11:20 11:20 WBC 6.5 D RBC 4.03 Hgb 12.4 Hct 37.5 MCV 93.1 MCH 30.8 MCHC 33.1 RDW 14.2 Plt Count 313 MPV 9.5 Neut % (Auto) 80.9 H Lymph % (Auto) 9.0 L Glades % (Auto) 9.4 H Eos % (Auto) 0.5 L Baso % (Auto) 0.2 Lymph # (Auto) 0.6 L Glades # (Auto) 0.6 Eos # (Auto) 0.0 Baso # (Auto) 0.01 Absolute Neuts (auto) 5.23 PT 11.8 INR 1.04 APTT 29.1 Sodium Potassium Chloride Carbon Dioxide Anion Gap BUN Creatinine Est GFR ( Amer) Est GFR (Non-Af Amer) POC Glucose (mg/dL) 128 H Random Glucose Calcium Magnesium Total Bilirubin AST ALT Alkaline Phosphatase Lactate Dehydrogenase Total Creatine Kinase Troponin I Total Protein Albumin Globulin Albumin/Globulin Ratio Urine Color Urine Appearance Urine pH Ur Specific Allen Urine Protein Urine Glucose (UA) Urine Ketones Urine Blood Urine Nitrate Urine Bilirubin Urine Urobilinogen Ur Leukocyte Esterase Urine RBC Urine WBC Ur Epithelial Cells Amorphous Sediment 05/02/18 05/02/18 05/02/18 11:20 14:26 16:26 WBC RBC Hgb Hct MCV MCH MCHC RDW Plt Count MPV Neut % (Auto) Lymph % (Auto) Glades % (Auto) Eos % (Auto) Baso % (Auto) Lymph # (Auto) Glades # (Auto) Eos # (Auto) Baso # (Auto) Absolute Neuts (auto) PT INR APTT Sodium 134 Potassium 5.6 H* D Chloride 99 Carbon Dioxide 29 Anion Gap 11 BUN 18 Creatinine 0.6 L Est GFR ( Amer) > 60 Est GFR (Non-Af Amer) > 60 POC Glucose (mg/dL) 353 H 320 H Random Glucose 211 H Calcium 9.4 Magnesium 2.1 Total Bilirubin 0.8 AST 48 H D ALT 26 Alkaline Phosphatase 83 Lactate Dehydrogenase 658 Total Creatine Kinase 140 Troponin I 0.01 D Total Protein 7.6 Albumin 4.3 Globulin 3.3 Albumin/Globulin Ratio 1.3 Urine Color Urine Appearance Urine pH Ur Specific Allen Urine Protein Urine Glucose (UA) Urine Ketones Urine Blood Urine Nitrate Urine Bilirubin Urine Urobilinogen Ur Leukocyte Esterase Urine RBC Urine WBC Ur Epithelial Cells Amorphous Sediment 05/02/18 05/02/18 05/02/18 17:45 17:52 21:06 WBC RBC Hgb Hct MCV MCH MCHC RDW Plt Count MPV Neut % (Auto) Lymph % (Auto) Glades % (Auto) Eos % (Auto) Baso % (Auto) Lymph # (Auto) Glades # (Auto) Eos # (Auto) Baso # (Auto) Absolute Neuts (auto) PT INR APTT Sodium 131 L Potassium 5.5 H Chloride 97 L Carbon Dioxide 28 Anion Gap 11 BUN 19 Creatinine 0.6 L Est GFR ( Amer) > 60 Est GFR (Non-Af Amer) > 60 POC Glucose (mg/dL) 145 H Random Glucose 281 H Calcium 9.4 Magnesium Total Bilirubin AST ALT Alkaline Phosphatase Lactate Dehydrogenase Total Creatine Kinase Troponin I Total Protein Albumin Globulin Albumin/Globulin Ratio Urine Color Yellow Urine Appearance Clear Urine pH 6.5 Ur Specific Allen 1.015 Urine Protein Negative Urine Glucose (UA) >=1000 Urine Ketones Negative Urine Blood Negative Urine Nitrate Negative Urine Bilirubin Negative Urine Urobilinogen 0.2 Ur Leukocyte Esterase Trace H Urine RBC TEST NOT PERFORMED Urine WBC 2 - 5 Ur Epithelial Cells 6 - 8 H Amorphous Sediment Trace 05/02/18 05/02/18 05/02/18 22:41 23:44 23:49 WBC RBC Hgb Hct MCV MCH MCHC RDW Plt Count MPV Neut % (Auto) Lymph % (Auto) Glades % (Auto) Eos % (Auto) Baso % (Auto) Lymph # (Auto) Glades # (Auto) Eos # (Auto) Baso # (Auto) Absolute Neuts (auto) PT INR APTT Sodium Potassium Chloride Carbon Dioxide Anion Gap BUN Creatinine Est GFR ( Amer) Est GFR (Non-Af Amer) POC Glucose (mg/dL) 60 L > 500 H* 67 Random Glucose Calcium Magnesium Total Bilirubin AST ALT Alkaline Phosphatase Lactate Dehydrogenase Total Creatine Kinase Troponin I Total Protein Albumin Globulin Albumin/Globulin Ratio Urine Color Urine Appearance Urine pH Ur Specific Allen Urine Protein Urine Glucose (UA) Urine Ketones Urine Blood Urine Nitrate Urine Bilirubin Urine Urobilinogen Ur Leukocyte Esterase Urine RBC Urine WBC Ur Epithelial Cells Amorphous Sediment 05/03/18 05/03/18 05/03/18 00:30 02:18 06:15 WBC RBC Hgb Hct MCV MCH MCHC RDW Plt Count MPV Neut % (Auto) Lymph % (Auto) Glades % (Auto) Eos % (Auto) Baso % (Auto) Lymph # (Auto) Glades # (Auto) Eos # (Auto) Baso # (Auto) Absolute Neuts (auto) PT INR APTT Sodium 130 L Potassium 5.2 H Chloride 97 L Carbon Dioxide 27 Anion Gap 12 BUN 16 Creatinine 0.7 Est GFR ( Amer) > 60 Est GFR (Non-Af Amer) > 60 POC Glucose (mg/dL) 74 115 H Random Glucose 226 H Calcium 8.7 Magnesium 2.0 Total Bilirubin 0.8 AST 54 H ALT 22 Alkaline Phosphatase 66 Lactate Dehydrogenase Total Creatine Kinase Troponin I Total Protein 6.4 Albumin 3.5 Globulin 2.8 Albumin/Globulin Ratio 1.2 Urine Color Urine Appearance Urine pH Ur Specific Allen Urine Protein Urine Glucose (UA) Urine Ketones Urine Blood Urine Nitrate Urine Bilirubin Urine Urobilinogen Ur Leukocyte Esterase Urine RBC Urine WBC Ur Epithelial Cells Amorphous Sediment 05/03/18 07:18 WBC RBC Hgb Hct MCV MCH MCHC RDW Plt Count MPV Neut % (Auto) Lymph % (Auto) Glades % (Auto) Eos % (Auto) Baso % (Auto) Lymph # (Auto) Glades # (Auto) Eos # (Auto) Baso # (Auto) Absolute Neuts (auto) PT INR APTT Sodium Potassium Chloride Carbon Dioxide Anion Gap BUN Creatinine Est GFR ( Amer) Est GFR (Non-Af Amer) POC Glucose (mg/dL) 284 H Random Glucose Calcium Magnesium Total Bilirubin AST ALT Alkaline Phosphatase Lactate Dehydrogenase Total Creatine Kinase Troponin I Total Protein Albumin Globulin Albumin/Globulin Ratio Urine Color Urine Appearance Urine pH Ur Specific Allen Urine Protein Urine Glucose (UA) Urine Ketones Urine Blood Urine Nitrate Urine Bilirubin Urine Urobilinogen Ur Leukocyte Esterase Urine RBC Urine WBC Ur Epithelial Cells Amorphous Sediment Assessment & Plan - Assessment and Plan (Free Text) Assessment: 82 year old female with a PMH of HTN, HLD, CABG x2, IDDM type 1 (since 22 years old), breast CA s/p lumpectomy who presented for confusion and was found to be hypoglycemic. Endocrinology consultation was requested for hypoglycemia. Plan: 1. Confusion and hypoglycemia in setting of Type 1 DM Given current patient mental status is intact, difficult to ascertain whether her hypoglycemia was due to one time confusion vs recurrent issue Has had recent admission for DKA 2 months agoand adjustments being actively made by PMD Last BG ranging from 67-353 Continue accuchecks and RISS Will decrease levemir from 15 to 10 starting tonight Has required 5 and 7 units of humalog, will continue to follow Continue carb consistent diet SW consulted by primary team as having issues with visiting aid which would assist in proper compliance with medications life skills educator referral Patient was seen and examined and case will be discussed with attending physician. Thank you for the pleasure of participating in the care of this patient. - Date & Time Date: 05/03/18 Time: 09:55
--- NOTE | 2018-05-03 12:12 | CP.PCM.PCO ---
Physician Communication Note - Physician Communication Note Physician Communication Note: PT eval pending, CM/SW D/C planning
--- NOTE | 2018-05-03 12:12 | CP.PCM.PCO ---
Physician Communication Note - Physician Communication Note Physician Communication Note: Insulin adjusted today, intially hypoglycemic, today hyperglycemic, reeval
[2018-05-03 14:50] LABS: BLOOD UREA NITROGEN 20 mg/dL (7-21); CALCIUM 8.7 mg/dL (8.4-10.5); GFR NON-AFRICAN AMERICAN > 60
--- NOTE | 2018-05-03 15:04 | CON ---
DATE: 05/03/2018 ENDOCRINOLOGY CONSULTATION LOCATION: Room 360. HISTORY OF PRESENT ILLNESS: This is an 82-year-old female with known history of type 1 insulin-dependent diabetes presenting here with sudden onset of confusion with associated hypoglycemia and has now been admitted for further diabetic evaluation and management of extremes of glycemic fluctuations as noted at home. PAST MEDICAL HISTORY: History of type 1 insulin-dependent diabetes and currently on a basal and bolus insulin drug combination with Humalog taken as 5 units t.i.d. before meals and Lantus taken as 15 units at bedtime. History of hypothyroidism, on levothyroxine replacement therapy. History of coronary artery disease with previous coronary artery bypass surgery done twice in 1982 and 1995. History of hypertension and dyslipidemia. History of diabetic polyneuropathy with occasional lower extremity painful paresthesias. History of a left breast lumpectomy for breast carcinoma and currently in remission at this time. FAMILY HISTORY: Positive for hypertension and diabetes. SOCIAL HISTORY: The patient lives alone and has a very supportive family otherwise. 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 REVIEW OF SYSTEMS: Admits to episodic bouts of dizziness and lightheadedness worse on the day of admission. Also admits to occasional bouts of hypersomnolence and lethargy. Moreover, admits to episodic bouts of lapses of memory and forgetfulness and as per the family, has had occasional bouts of drug omission at this time. No chest pains or palpitations. Her oral intake has been variable with occasional dyspepsia and vague upper abdominal pains. No recent alterations of bowel and urinary patterns. PHYSICAL EXAMINATION: GENERAL: This is an average built female in no apparent distress. VITAL SIGNS: Blood pressure of 140/80, pulse of 90 beats per minute and regular, temperature 98, respirations 20. Height is 5 feet 2 inches, weight is 115 pounds. HEENT: Head normocephalic. Eyes anicteric with pink conjunctivae. Funduscopy not possible at this time. Ears, nose and throat otherwise normal. NECK: Supple. Thyroid gland is normal in size. No carotid bruits or any cervical adenopathy. CARDIOPULMONARY: Some adynamic precordium. S1, S2 is rapid and regular. Lungs are clear to auscultation. ABDOMEN: Flat, soft with positive bowel sounds. EXTREMITIES: No peripheral edema. Pulses are +2 bilaterally. LABORATORY DATA: Her chemistries initially showed a BUN of 18, sodium 134, potassium 5.6, chloride 99, CO2 of 29, glucose 211 and creatinine 0.6. Her glucose levels were in the low 60-70 range at home as noted. The only documented low glucose level here was overnight at 74 mg/dl with supervening hyperglycemic accelerations and glucose levels ranging from 284 to 381 mg/dl. ASSESSMENT: This is an 82-year-old female with uncontrolled and decompensated type 1 insulin-dependent diabetes with extremes of glycemic fluctuations ranging from symptomatic hypoglycemia and associated neuroglycopenic and hyperadrenergic manifestations and swinging to marked hyperglycemic accelerations and glucose levels ranging from 300 to over 500 mg/dl at home as noted. There is also a significant element of increasing senile dementia with lapses of forgetfulness and omission of her insulin regimen and sometimes even confusion with the insulin regimen as noted. She also has diabetic microvascular complications of polyneuropathy with macrovascular complications of coronary artery disease and peripheral vasculopathy as noted. PLAN OF MANAGEMENT: We will modify her current insulin regimen and give her the lowest dose possible to optimize metabolic control. We will add Humalog at 6 units subcu t.i.d. before meals to start today as ordered. We will modify the coverage scale to a very low-dose algorithm to obviate hypoglycemia, especially with the overlap of the Humalog given before meals and the coverage scale as ordered. We will continue the basal insulin given as Levemir at 10 units subcu at bedtime daily as given and we will titrate incrementally as indicated to optimize metabolic control. We really cannot simplify and modify her insulin dose regimen considering that she is a type 1 diabetic with really no endogenous insulin reserve in the pancreas and so she really depends on exogenous insulin therapy as given above. The biggest concern now is the increasing lapses of forgetfulness and senile dementia that is expected at this age and one needs a lot of family and/or caregiver support to make sure that the patient is actually synchronizing her meals with her insulin regimen given precisely and accurately as ordered. We will discuss the social concerns with the social services manager and our diabetic nurse educator. We will also obtain a hemoglobin A1c to confirm her prior glycemic control and obtain also thyroid function studies and adjust her levothyroxine dose accordingly. Myrtle Moon MD [facility] # [id number]
[2018-05-03] MEDS ORDERED: Insulin Regular 1 UNITS/0.01 ML ML SC SCH (16:30)
[2018-05-03] MEDS ORDERED: Insulin Lispro 1 UNITS/0.01 ML SC SCH ×2 (16:30)
[2018-05-03] MEDS: Insulin Lispro 1 UNITS/0.01 ML SC SCH (18:03)
[2018-05-03] MEDS: Insulin Lispro (humaLOG) LOW Coverage SC SCH ×2 (18:04→21:45)
[2018-05-04] MEDS: Levothyroxine 125 MCG TAB PO SCH (05:05)
[2018-05-04 06:29] LABS: BASO # 0.03 K/mm3 (0.0-2.0); BASO % 0.5 % (0.0-3.0); EOS # 0.2 (0.0-0.7); EOS % 3.1 % (1.5-5.0); HEMOGLOBIN 10.8 g/dL (12.0-16.0); LYMPH # 1.5 (1.2-3.4); LYMPH % 23.6 % (22.0-35.0); MEAN CELL VOLUME 92.6 fl (80.0-105.0); MEAN CORPUSCULAR HEMOGLOBIN 30.6 pg (25.0-35.0); MEAN PLATELET VOLUME 9.3 fl (7.0-11.0); MONO # 0.6 (0.1-0.6); MONO % 10.2 % (1.0-6.0); RBC 3.53 10^6/uL (3.5-6.1); RED CELL DISTRIBUTION WIDTH 14.3 % (11.5-14.5); WHITE BLOOD COUNT 6.2 10^3/uL (4.5-11.0)
[2018-05-04 06:47] LABS: LDL CHOLESTEROL 79 mg/dL (0-129)
[2018-05-04 06:52] LABS: T4 8.5 ug/dL (5.5-11.0)
[2018-05-04 06:59] LABS: ALB/GLOB RATIO 1.3 (1.1-1.8); ALBUMIN 3.5 g/dL (3.0-4.8); ALT/SGPT 27 U/L (7-56); AST/SGOT 36 U/L (14-36); BLOOD UREA NITROGEN 20 mg/dL (7-21); CALCIUM 8.8 mg/dL (8.4-10.5); GFR NON-AFRICAN AMERICAN > 60; HDL CHOLESTEROL 56 mg/dL (29-60)
[2018-05-04 08:12] VITALS: BP 173/70; PULSE 70; TEMP 97.8; O2SAT 98
[2018-05-04] MEDS: Insulin Lispro (humaLOG) LOW Coverage SC SCH ×2 (09:21→12:44)
[2018-05-04] MEDS: Enoxaparin 40 mg Syringe SC SCH (09:22)
[2018-05-04] MEDS: Insulin Lispro 1 UNITS/0.01 ML SC SCH ×2 (09:22→12:43)
--- NOTE | 2018-05-04 09:39 | CP.PCM.PN ---
Subjective - Date & Time of Evaluation Date of Evaluation: 05/04/18 Time of Evaluation: 07:10 - Subjective Subjective: Nico Pacheco D.O. PGY-3, Internal Medicine Resident, Endocrinology Consultation Note 82 year old female with a PMH of HTN, HLD, CABG x2, IDDM type 1 (since 22 years old), breast CA s/p lumpectomy who presented for confusion and was found to be hypoglycemic. Endocrinology consultation was requested for hypoglycemia. Patient was seen and examined at bedside. Patient feeling much better and is in great spirits. States that she can't wait to go home. Objective - Vital Signs/Intake and Output Vital Signs (last 24 hours): Temp Pulse Resp BP Pulse Ox 97.8 F 70 20 173/70 H 98 05/04/18 08:11 05/04/18 08:11 05/04/18 08:11 05/04/18 09:21 05/04/18 08:11 Intake and Output: 05/04/18 05/04/18 06:59 18:59 Intake Total 840 Balance 840 - Medications Medications: Current Medications Aspirin (Aspirin Chewable) 81 mg PO DAILY [facility] Last Admin: 05/04/18 09:20 Dose: 81 mg Atorvastatin Calcium (Lipitor) 10 mg PO DIN [facility] Last Admin: 05/03/18 18:03 Dose: 10 mg Carvedilol (Coreg) 12.5 mg PO BID [facility] Last Admin: 05/04/18 09:20 Dose: 12.5 mg Dextrose (Dextrose 50% Inj) 0 ml IV STAT PRN; Protocol PRN Reason: Hypoglycemia Protocol Enoxaparin Sodium (Lovenox) 40 mg SC DAILY [facility]; Protocol Last Admin: 05/04/18 09:22 Dose: 40 mg Furosemide (Lasix) 20 mg PO DAILY [facility] Last Admin: 05/04/18 09:21 Dose: 20 mg Dextrose (Dextrose 5% In Water 1000 Ml) 1,000 mls @ 0 mls/hr IV .Q0M PRN; Protocol PRN Reason: Hypoglycemia Protocol Insulin Detemir (Levemir) 14 unit SC HS [facility] Insulin Human Lispro (Humalog Low) 0 units SC ACHS [facility]; Protocol Last Admin: 05/04/18 09:21 Dose: Not Given Insulin Human Lispro (Humalog) 6 units SC AC [facility] Last Admin: 05/04/18 09:22 Dose: 6 units Isosorbide Mononitrate (Imdur) 60 mg PO DAILY [facility] Last Admin: 05/04/18 09:21 Dose: 60 mg Levothyroxine Sodium (Synthroid) 125 mcg PO 0600 [facility] Last Admin: 05/04/18 05:05 Dose: 125 mcg Lisinopril (Zestril) 2.5 mg PO DAILY [facility] Last Admin: 05/04/18 09:21 Dose: 2.5 mg - Labs Labs: 05/04/18 06:00 05/04/18 06:00 PT 11.8 SECONDS (9.4-12.5) 05/02/18 11:20 INR 1.04 05/02/18 11:20 APTT 29.1 Seconds (26.9-38.3) 05/02/18 11:20 - Constitutional Appears: Well, Non-toxic, No Acute Distress - Head Exam Head Exam: ATRAUMATIC, NORMOCEPHALIC - Eye Exam Eye Exam: absent: Scleral icterus - ENT Exam ENT Exam: Mucous Membranes Dry, Normal Oropharynx - Neck Exam Neck exam: Negative for: Tenderness - Respiratory Exam Respiratory Exam: absent: Rales, Rhonchi, Wheezes - Cardiovascular Exam Cardiovascular Exam: +S1, +S2 - GI/Abdominal Exam GI & Abdominal Exam: Normal Bowel Sounds, Soft. absent: Distended, Tenderness - Extremities Exam Extremities exam: Negative for: calf tenderness - Neurological Exam Neurological exam: Alert, Oriented x3 - Psychiatric Exam Psychiatric exam: Normal Affect, Normal Mood - Skin Skin Exam: Warm Additional comments: unchanged small sternotomy wire poking out through skin at top of sternum Assessment and Plan - Assessment and Plan (Free Text) Assessment: 82 year old female with a PMH of HTN, HLD, CABG x2, IDDM type 1 (since 22 years old), breast CA s/p lumpectomy who presented for confusion and was found to be hypoglycemic. Endocrinology consultation was requested for hypoglycemia. Plan: 1. Confusion and hypoglycemia in setting of Type 1 DM Cannot simply regimen any more than basal and meal time insulin given that she is type 1 diabetic Can stay on levemir (was taking lantus at home) 14 units SC HS with lispro 6 units SC AC Was not given levemir night of 05/02 so last 24 hours of insulin readings are elevated Continue accuchecks and RISS Continue carb consistent diet Patient was seen and examined and case will be discussed with attending physician.
--- NOTE | 2018-05-04 15:16 | PN ---
DATE: 05/04/2018 ENDO FOLLOWUP NOTE LOCATION: Room 360. SUBJECTIVE: This is an 82-year-old female with recent uncontrolled type 1 insulin-dependent diabetes presenting with extremes of glycemic fluctuations and is now being followed closely for metabolic management. She apparently has had low glucose values at home with supervening altered mental status and episodic confusional state as noted. She also has lapses of forgetfulness with episodic omission of her insulin dose regimen as given. Her glucose values overnight have ranged from 234-346 mg/dL. Her chemistry showed a BUN of 20, sodium 132, potassium 4.3, chloride 98, CO2 of 28, glucose 260 and creatinine 0.6. Her thyroid study showed a T4 of 8.5 mcg/dL with a TSH of 1.43. ASSESSMENT: This is an 82-year-old female with uncontrolled and decompensated type 1 insulin-dependent diabetes with extremes of glycemic fluctuations ranging from symptomatic hypoglycemia with associated neuroglycopenic and hyperadrenergic manifestations to supervening hyperglycemic accelerations as noted thereof. There is a significant history of increasing lapses of forgetfulness and drug omission and even confusion with insulin dose regimen at this time. The possibility of increasing senile dementia is a big concern with the patient at this time. PLAN OF MANAGEMENT: We will continue the levothyroxine given same dosing of 125 mcg daily as ordered as the patient remains clinically and biochemically euthyroid at this time. We will also modify, however, her basal and bolus insulin regimen and increase the Humalog to 6 units t.i.d. before meals to start this morning as ordered. We will also increase the basal insulin with Levemir to be given as 14 units subcutaneous at bedtime daily to start tonight. We will titrate incrementally as indicated to optimize metabolic control. We will obtain serial chemistries and supplement accordingly as needed. We will follow with you. Myrtle Moon MD
--- NOTE | 2018-05-04 15:57 | CP.PCM.DIS ---
Provider - Provider Date of Admission: 05/02/18 12:05 Attending physician: Katarina Shannon DO Primary care physician: Jayy Barney MD Consults: 05/02/18 13:31 Nuclear Weapons Specialist [Case Management Referral] Routine Comment: Physician Instructions: Reason For Exam: DENIZ [place] for d/c planning Reason for Referral: Discharge Planning 05/02/18 15:51 Diabetic Education Referral Routine Comment: Physician Instructions: Reason For Exam: hyper and hypoglycemic episodes 05/03/18 08:08 Consult [Physician Consult] Routine Comment: Consulting Provider: Myrtle Moon Consulting Physician: Myrtle Moon Reason for Consult: hypoglycemia Time Spent in preparation of Discharge (in minutes): 45 Diagnosis - Discharge Diagnosis (1) Hyperkalemia Status: Resolved (2) Hypoglycemia Status: Resolved (3) Hyperglycemia due to type 1 diabetes mellitus Status: Chronic Hospital Course - Lab Results Lab Results: Most Recent Lab Values WBC 6.2 10^3/uL (4.5-11.0) 05/04/18 06:00 RBC 3.53 10^6/uL (3.5-6.1) 05/04/18 06:00 Hgb 10.8 g/dL (12.0-16.0) L 05/04/18 06:00 Hct 32.7 % (36.0-48.0) L 05/04/18 06:00 MCV 92.6 fl (80.0-105.0) 05/04/18 06:00 MCH 30.6 pg (25.0-35.0) 05/04/18 06:00 MCHC 33.0 g/dl (31.0-37.0) 05/04/18 06:00 RDW 14.3 % (11.5-14.5) 05/04/18 06:00 Plt Count 251 10^3/uL (120.0-450.0) 05/04/18 06:00 MPV 9.3 fl (7.0-11.0) 05/04/18 06:00 Neut % (Auto) 62.6 % (50.0-68.0) 05/04/18 06:00 Lymph % (Auto) 23.6 % (22.0-35.0) 05/04/18 06:00 [place] % (Auto) 10.2 % (1.0-6.0) H 05/04/18 06:00 Eos % (Auto) 3.1 % (1.5-5.0) 05/04/18 06:00 Baso % (Auto) 0.5 % (0.0-3.0) 05/04/18 06:00 Lymph # (Auto) 1.5 (1.2-3.4) 05/04/18 06:00 [place] # (Auto) 0.6 (0.1-0.6) 05/04/18 06:00 Eos # (Auto) 0.2 (0.0-0.7) 05/04/18 06:00 Baso # (Auto) 0.03 K/mm3 (0.0-2.0) 05/04/18 06:00 Absolute Neuts (auto) 3.87 (1.4-6.5) 05/04/18 06:00 PT 11.8 SECONDS (9.4-12.5) 05/02/18 11:20 INR 1.04 05/02/18 11:20 APTT 29.1 Seconds (26.9-38.3) 05/02/18 11:20 Sodium 132 mmol/L (132-148) 05/04/18 06:00 Potassium 4.3 mmol/L (3.6-5.0) 05/04/18 06:00 Chloride 98 mmol/L (98-107) 05/04/18 06:00 Carbon Dioxide 28 mmol/L (21-33) 05/04/18 06:00 Anion Gap 10 (10-20) 05/04/18 06:00 BUN 20 mg/dL (7-21) 05/04/18 06:00 Creatinine 0.6 mg/dl (0.7-1.2) L 05/04/18 06:00 Est GFR ( Amer) > 60 05/04/18 06:00 Est GFR (Non-Af Amer) > 60 05/04/18 06:00 POC Glucose (mg/dL) 252 mg/dL (65-110) H 05/04/18 11:42 Random Glucose 260 mg/dL (70-110) H 05/04/18 06:00 Hemoglobin A1c 9.1 % (4.2-6.5) H 05/04/18 06:00 Calcium 8.8 mg/dL (8.4-10.5) 05/04/18 06:00 Magnesium 2.0 mg/dL (1.7-2.2) 05/03/18 06:15 Total Bilirubin 0.6 mg/dL (0.2-1.3) 05/04/18 06:00 AST 36 U/L (14-36) D 05/04/18 06:00 ALT 27 U/L (7-56) 05/04/18 06:00 Alkaline Phosphatase 66 U/L (38-126) 05/04/18 06:00 Lactate Dehydrogenase 658 U/L (333-699) 05/02/18 11:20 Total Creatine Kinase 140 U/L (35-230) 05/02/18 11:20 Troponin I 0.01 ng/mL D 05/02/18 11:20 Total Protein 6.3 g/dL (5.8-8.3) 05/04/18 06:00 Albumin 3.5 g/dL (3.0-4.8) 05/04/18 06:00 Globulin 2.8 gm/dL 05/04/18 06:00 Albumin/Globulin Ratio 1.3 (1.1-1.8) 05/04/18 06:00 Triglycerides 77 mg/dL (35-160) 05/04/18 06:00 Cholesterol 161 mg/dL (130-200) 05/04/18 06:00 LDL Cholesterol Direct 79 mg/dL (0-129) 05/04/18 06:00 HDL Cholesterol 56 mg/dL (29-60) 05/04/18 06:00 Thyroxine (T4) 8.5 ug/dL (5.5-11.0) 05/04/18 06:00 TSH 3rd Generation 1.47 mIU/mL (0.46-4.68) 05/04/18 06:00 Urine Color Yellow (YELLOW) 05/02/18 17:45 Urine Appearance Clear (CLEAR) 05/02/18 17:45 Urine pH 6.5 (4.7-8.0) 05/02/18 17:45 Ur Specific [place] 1.015 (1.005-1.035) 05/02/18 17:45 Urine Protein Negative mg/dL (<30 mg/dL) 05/02/18 17:45 Urine Glucose (UA) >=1000 mg/dL (NEGATIVE) 05/02/18 17:45 Urine Ketones Negative mg/dL (NEGATIVE) 05/02/18 17:45 Urine Blood Negative (NEGATIVE) 05/02/18 17:45 Urine Nitrate Negative (NEGATIVE) 05/02/18 17:45 Urine Bilirubin Negative (NEGATIVE) 05/02/18 17:45 Urine Urobilinogen 0.2 E.U./dL (<1 E.U./dL) 05/02/18 17:45 Ur Leukocyte Esterase Trace Aries/uL (NEGATIVE) H 05/02/18 17:45 Urine RBC TEST NOT PERFORMED 05/02/18 17:45 Urine WBC 2 - 5 /hpf (0-6) 05/02/18 17:45 Ur Epithelial Cells 6 - 8 /hpf (0-5) H 05/02/18 17:45 Amorphous Sediment Trace /hpf (NONE) 05/02/18 17:45 - Hospital Course Hospital Course: Deep Be DO, PGY-1 Hospitalist Discharge Summary for Dr. Maurice Shannon On presentation: Gina is a pleasant 82 year old female with PMH of IDDM type 1 (diagnosed at age 22), CAD (s/p CABG x2), HTN, HLD, Breast Cancer (s/p lumpectomy in remission) [place] [facility] [place] confusion and slurred speech associated with hypoglycemia. Patient was accompanied by her daughter. She had a blood sugar log that showed a blood sugar of 580 last night and 65 morning of presentation which was lower than her normal values. Per daughter, patient had been becoming unreliable and forgetful in regards to her insulin regimen. Her PMD recently worked to simplify the regimen and placed the patient on 15 units HS Lantus since her last admission in February 2018 for DKA. Per daughter, patient feels she can still manage her diabetes and has refused psychometrician. At the time she denied, recent illness, fevers, chills, nausea, vomiting, diarrhea, dysuria, cough, chest pain, and shortness of breath. Hospital Course: Patient was admitted for altered mental status secondary to hypoglycemic episode. Upon admission, patient was given D5W infusion. Hypoglycemia improved with food and the infusion. D5W was discontinued. Long acting insulin was continued and hypoglycemia protocol was followed as needed. Blood glucose was monitored closely with fingerstick glucose checks ACHS. Hemoglobin A1C was found to be 9.1. Patient tolerated consistent CHO diet well throughout admission without nausea/vomiting. Endocrinology was consulted and recommended decreasing home levemir to 14 units HS and humalog to 6 units AC. Patient had hyperkalemia on admission and was given Kayexalate. Hyperkalemia resolved by day 2 of admission. Home medications for CAD, hypertension, and hypothyoidrism were continued. Patient was given lovenox for DVT prophylaxis. PT evaluation initially recommended TCU and/or CAREY placement but repeat PT examination this AM stated patient was stable to go home. On examination this AM, patient is resting comfortably in bed and feels ready to go home. Patient's daughter was contacted and the discharge plan was discussed with her. Patient's situation was discussed with patient and her daughter, emphasizing her need to accept home health to be sure she is getting proper insulin doses. All questions were answered. Patient seen, examined, and discharge plan discussed with my attending Dr. Maurice Be D.O. IM Resident PGY-1 Discharge Exam - Head Exam Head Exam: ATRAUMATIC, NORMOCEPHALIC Discharge Plan - Discharge Medications Prescriptions: Aspirin [Aspirin Chewable] 81 mg PO DAILY #14 chew Carvedilol [Coreg] 12.5 mg PO BID #28 tab Furosemide [Lasix] 20 mg PO DAILY #14 tab Insulin Detemir [Levemir] 14 unit SC HS #1 unit Insulin Lispro [Humalog (Insulin Lispro)] 6 unit SQ AC #1 cartridge Isosorbide Mononitrate [Imdur] 60 mg PO DAILY #14 tab Levothyroxine [Synthroid] 125 mcg PO 0600 #14 tab Lisinopril [Zestril] 2.5 mg PO DAILY #14 tab - Follow Up Plan Condition: STABLE Disposition: HOME/ ROUTINE Instructions: Low Blood Sugar, Adult (DC) Additional Instructions: Please follow up with your primary care doctor, Dr. Barney, within 3-5 days of discharge. Please tell Dr. Barney that we have decreased your meal-time insulin to 6 units and your nightly insulin to 14 units. Please continue to monitor your blood sugars closely. Please do not skip any meals. It is important that you follow up with the docket specialist, Dr. Moon in addition to seeing Dr. Barney Please see Dr. Cam within 1 weeks of your discharge today. Her contact information has been included with your paperwork. It is important that you continue to use the services of your home aides. They will help you make sure you are getting the right amount of insulin. Follow up with cardiology Dr. Tate to discuss getting your sternotomy wire adjusted within one week. If any of your symptoms return or worsen, please present to nearest ED. Referrals: Myrtle Moon MD [Medical Doctor] - Jayy Barney MD [Primary Care Provider] -
[2018-05-04] MEDS ORDERED: Insulin Lispro 1 UNITS/0.01 ML SC SCH (16:30)
[2018-05-04] MEDS ORDERED: Insulin Detemir 100 units/ml Vial (Levemir) SC SCH (22:00)
== END 2018-05-04 16:29 | disposition home or self-care (01) ==
LOC: ED 10:37 → ERH 12:05 → 3RNO 15:20
PROVIDERS: ADMIT Internal Medicine; ATTEND Hospitalist
DX: E10.649 Type 1 diabetes mellitus with hypoglycemia without coma (principal); E87.5 Hyperkalemia; E10.42 Type 1 diabetes mellitus with diabetic polyneuropathy; I10 Essential (primary) hypertension; E03.9 Hypothyroidism, unspecified; I25.10 Atherosclerotic heart disease of native coronary artery without angina pectoris; E78.5 Hyperlipidemia, unspecified; F03.90 Unspecified dementia, unspecified severity, without behavioral disturbance, psychotic disturbance, mood disturbance, and anxiety; Z66 Do not resuscitate; Z79.82 Long term (current) use of aspirin; Z95.1 Presence of aortocoronary bypass graft; Z85.3 Personal history of malignant neoplasm of breast
CPT/HCPCS: 36415; 71045; 80053; 80061; 81001; 82550; 82948; 83036; 83615; 83735; 84436; 84443; 84484; 85025; 85610; 85730; 93005; 96361; 96372; 96374; 97116; 97162; 99285; G0378; G8978; G8979; J1650; J7042

== ENCOUNTER 2018-05-20 10:02 | Emergency (ER) | payer MEDICARE, BC ==
[2018-05-20 10:07] VITALS: BMI 19.8
[2018-05-20 10:09] VITALS: RESP 18
[2018-05-20] MEDS: Dextrose 5%/0.9% NS 1,000 ML IV SCH ×2 (10:45→11:08)
[2018-05-20] MEDS ORDERED: Sodium Chloride 0.9% 1,000 ML IV STA ×3 (11:07→14:57)
[2018-05-20 11:18] LABS: BASO # 0.02 {null, K/mm3} (0.0-2.0); BASO % 0.2 % (0.0-3.0); EOS % 0.2 % (1.5-5.0); HEMOGLOBIN 13.2 g/dL (12.0-16.0); LYMPH # 0.5 (1.2-3.4); LYMPH % 6.2 % (22.0-35.0); MEAN CELL VOLUME 93.9 fl (80.0-105.0); MEAN PLATELET VOLUME 9.4 fl (7.0-11.0); MONO # 0.6 (0.1-0.6); MONO % 7.5 % (1.0-6.0); RBC 4.26 {null, 10^6/uL} (3.5-6.1); RED CELL DISTRIBUTION WIDTH 13.7 % (11.5-14.5); WHITE BLOOD COUNT 8.4 {null, 10^3/uL} (4.5-11.0)
--- NOTE | 2018-05-20 11:29 | ED PDOC ---
Arrival/HPI - General Chief Complaint: Abnormal Labs Time Seen by Provider: 05/20/18 10:10 Historian: Patient, Family (niece) - History of Present Illness Narrative History of Present Illness (Text): 05/20/18 11:24 82 year old female, whose past medical history of hypertension, CAD, triple bypass, and diabetes, who presents to the emergency department for fluctuating sugar levels. Niece states that he aunt was unresponsive this morning, called 911 to be able to enter the house. She found the patient unable to walk, very shaky, she hadn't eaten or taken any of her medication. EMS gave her 2 cups of orange juice to raise her sugar level. Niece notes her aunt takes approximately 14 units of insulin at night and approximately 6 units after food. Niece also reports her aunts suagr level has been fluctuating often and she has been hospitalized 3 time already this year for it. She denies fevers, chills, headache, dizziness, chest pain, shortness of breath, dyspnea on exertion, cough, abdominal pain, nausea, vomiting, diarrhea, back pain, neck pain, or any other complaint. PMD: Dr. Barney Time/Duration: 1-3 hours Symptom Onset: Gradual Symptom Course: Unchanged Activities at Onset: Light Context: Home Past Medical History - Provider Review Nursing Documentation Reviewed: Yes - Infectious Disease Hx of Infectious Diseases: None - Cardiac Hx Hypertension: Yes - Pulmonary Hx Respiratory Disorders: No - Neurological Hx Neurological Disorder: No - HEENT Hx HEENT Disorder: No - Renal Hx Renal Disorder: No - Endocrine/Metabolic Hx Diabetes Mellitus Type 2: Yes - Hematological/Oncological Hx Blood Disorders: No - Integumentary Hx Dermatological Disorder: No - Musculoskeletal/Rheumatological Hx Falls: No - Gastrointestinal Hx Gastrointestinal Disorders: No - Genitourinary/Gynecological Hx Genitourinary Disorders: No - Psychiatric Hx Psychophysiologic Disorder: No Hx Substance Use: No - Surgical History Hx Open Heart Surgery: Yes (CABG x2) Other/Comment: breast Ca R lumphectomy - Anesthesia Hx Anesthesia: Yes Hx Anesthesia Reactions: No Hx Malignant Hyperthermia: No - Suicidal Assessment Feels Threatened In Home Enviroment: No Family/Social History - Physician Review Nursing Documentation Reviewed: Yes Family/Social History: No Known Family HX Smoking Status: Never Smoked Hx Alcohol Use: No Hx Substance Use: No Allergies/Home Meds Allergies/Adverse Reactions: Allergies No Known Allergies Allergy (Verified 03/05/18 09:24) Review of Systems - Physician Review All systems were reviewed & negative as marked: Yes - Review of Systems Constitutional: absent: Fevers Respiratory: absent: SOB, Cough Cardiovascular: absent: Chest Pain Gastrointestinal: absent: Abdominal Pain, Nausea, Vomiting Musculoskeletal: absent: Back Pain, Neck Pain Neurological: absent: Headache Endocrine: Other (fluctuating sugar levels) Physical Exam Vital Signs Reviewed: Yes Vital Signs Temp Pulse Resp BP Pulse Ox 05/20/18 10:08 97.6 F 88 18 149/83 100 Temperature: Afebrile Blood Pressure: Normal Pulse: Regular Respiratory Rate: Normal Appearance: Positive for: Well-Appearing, Non-Toxic, Comfortable Pain Distress: None Mental Status: Positive for: Alert and Oriented X 3 Finger Stick Blood Glucose: 286 - Systems Exam Head: Present: Atraumatic, Normocephalic Pupils: Present: PERRL Extroacular Muscles: Present: EOMI Conjunctiva: Present: Normal Mouth: Present: Dry. No: Moist Mucous Membranes Neck: Present: Normal Range of Motion Respiratory/Chest: Present: Clear to Auscultation, Good Air Exchange. No: Respiratory Distress, Accessory Muscle Use Cardiovascular: Present: Regular Rate and Rhythm, Normal S1, S2. No: Murmurs Abdomen: No: Tenderness, Distention, Peritoneal Signs Back: Present: Normal Inspection Upper Extremity: Present: Normal Inspection. No: Cyanosis, Edema Lower Extremity: Present: Normal Inspection. No: Edema Neurological: Present: GCS=15, CN II-XII Intact, Speech Normal Skin: Present: Warm, Dry, Normal Color. No: Rashes Psychiatric: Present: Alert, Oriented x 3, Normal Insight, Normal Concentration Medical Decision Making ED Course and Treatment: 05/20/18 11:30 Impression: 82 year old female who presents to the emergency department complaining of diabetic issue. Differential Diagnosis included but are not limited to: Hypoglycemia DKA Plan: -- EKG -- Labs -- IV fluids -- Urinalysis -- Dextrose -- Reassess and disposition Prior Visits: Notes and results from previous visits were reviewed. Progress Notes: 05/20/18 18:08 Labs do no show evidence of infection or DKA. Glucose trended down from 400s to 170s. Patient alert and awake desiring to go home. Patient is advised to follow up with her PCP and take her medications as prescribed. She is stable for discharge. - Lab Interpretations Lab Results: 05/20/18 10:46 05/20/18 10:46 Lab Results 05/20/18 18:07: POC Glucose (mg/dL) 177 H 05/20/18 15:10: POC Glucose (mg/dL) 301 H 05/20/18 14:03: POC Glucose (mg/dL) 353 H 05/20/18 12:48: POC Glucose (mg/dL) 403 H* 05/20/18 11:39: Urine Color Yellow, Urine Appearance Clear, Urine pH 6.0, Ur Specific [place] 1.020, Urine Protein Negative, Urine Glucose (UA) 500 H, Urine Ketones Negative, Urine Blood Trace-intact H, Urine Nitrate Negative, Urine Bilirubin Negative, Urine Urobilinogen 0.2, Ur Leukocyte Esterase Moderate H, Urine RBC 25 - 30 H, Urine WBC Tntc H, Ur Epithelial Cells 4 - 5, Urine Bacteria Large, Urine Other [place]yeast 05/20/18 10:52: POC Glucose (mg/dL) 286 H 05/20/18 10:46: Sodium 135, Potassium 4.8, Chloride 98, Carbon Dioxide 27, Anion Gap 15, BUN 23 H, Creatinine 0.6 L, Est GFR ( Amer) > 60, Est GFR (Non-Af Amer) > 60, Random Glucose 273 H, Calcium 9.4, Total Bilirubin 0.8, AST 36, ALT 20, Alkaline Phosphatase 89, Total Protein 7.9, Albumin 4.5, Globulin 3.4, [place] min/Globulin Ratio 1.3 05/20/18 10:46: WBC 8.4 D, RBC 4.26, Hgb 13.2 D, Hct 40.0, MCV 93.9, MCH 31.0, MCHC 33.0, RDW 13.7, Plt Count 281, MPV 9.4, Neut % (Auto) 85.9 H, Lymph % (Auto) 6.2 L, [place] % (Auto) 7.5 H, Eos % (Auto) 0.2 L, Baso % (Auto) 0.2, Lymph # (Auto) 0.5 L, [place] # (Auto) 0.6, Eos # (Auto) 0.0, Baso # (Auto) 0.02, Absolute Neuts (auto) 7.23 H 05/20/18 10:05: POC Glucose (mg/dL) 96 I have reviewed the lab results: Yes - EKG Interpretation EKG Interpretation (Text): 05/20/18 14:30 EKG performed at 10:14 reviewed by me, shows: NSR at 82bpm with short IL interval and slightly prolonged QT interval. Interpreted by ED Physician: Yes Type: 12 lead EKG - Medication Orders Current Medication Orders: Sodium Chloride (Sodium Chloride 0.9%) 1,000 mls @ 999 mls/hr IV .Q1H1M STA Stop: 05/20/18 12:07 Discontinued Medications Sodium Chloride (Sodium Chloride 0.9%) 1,000 mls @ 999 mls/hr IV .Q1H1M STA Stop: 05/20/18 12:07 Last Admin: 05/20/18 11:22 Dose: 999 mls/hr eMAR Start Stop Document 05/20/18 11:22 LA (Rec: 05/20/18 11:25 LA [id number]) Intravenous Solution Start Date 05/20/18 Start Time 11:25 End Date 05/20/18 End time 12:26 Total Infusion Time 61 Ceftriaxone Sodium (Rocephin 1 Gram Ivpb) 1 gm in 100 mls @ 100 mls/hr IVPB STAT STA; Protocol Stop: 05/20/18 13:56 Last Admin: 05/20/18 13:07 Dose: 100 mls/hr eMAR Start Stop Document 05/20/18 13:07 LA (Rec: 05/20/18 13:07 [id number]) Intravenous Solution Start Date 05/20/18 Start Time 13:07 End Date 05/20/18 End time 14:07 Total Infusion Time 60 Sodium Chloride (Sodium Chloride 0.9%) 1,000 mls @ 999 mls/hr IV .Q1H1M STA Stop: 05/20/18 15:12 Last Admin: 05/20/18 15:15 Dose: 999 mls/hr eMAR Start Stop Document 05/20/18 15:15 LA (Rec: 05/20/18 15:15 [email or web address]) Intravenous Solution Start Date 05/20/18 Start Time 15:15 End Date 05/20/18 End time 16:16 Total Infusion Time 61 Sodium Chloride (Sodium Chloride 0.9%) 1,000 mls @ 999 mls/hr IV .Q1H1M STA Stop: 05/20/18 15:57 Last Admin: 05/20/18 16:21 Dose: 999 mls/hr eMAR Start Stop Document 05/20/18 16:21 LA (Rec: 05/20/18 16:21 [id number]) Intravenous Solution Start Date 05/20/18 Start Time 16:21 End Date 05/20/18 End time 17:22 Total Infusion Time 61 Insulin Human Regular (Humulin R) 8 units SC STAT STA Stop: 05/20/18 12:58 Last Admin: 05/20/18 13:06 Dose: 8 u MAR Blood Glucose Document 05/20/18 13:06 LA (Rec: 05/20/18 13:06 [id number]) Blood Glucose Finger Stick Blood Glucose (70-120) 403 Subcutaneous Administrations Document 05/20/18 13:06 LA (Rec: 05/20/18 13:06 [id number]) Injection Site MAR Injection Site Right Arm Charges for Administration # of Subcutaneous Administrations 1 - Scribe Statement The provider has reviewed the documentation as recorded by the Scribe Ellen Guo Provider Scribe Attestation: All medical record entries made by the Scribe were at my direction and personally dictated by me. I have reviewed the chart and agree that the record accurately reflects my personal performance of the history, physical exam, medical decision making, and the department course for this patient. I have also personally directed, reviewed, and agree with the discharge instructions and dis position. Disposition/Present on Arrival - Present on Arrival Any Indicators Present on Arrival: No History of DVT/PE: No History of Uncontrolled Diabetes: No Urinary Catheter: No History of Decub. Ulcer: No History Surgical Site Infection Following: None - Disposition Have Diagnosis and Disposition been Completed?: Yes Diagnosis: Hypoglycemia, UTI (urinary tract infection) Disposition: HOME/ ROUTINE Disposition Time: 18:11 Patient Plan: Discharge Condition: IMPROVED Discharge Instructions (ExitCare): Urinary Tract Infection, Adult (DC), Low Blood Sugar, Adult (DC) Print Language: MALAY Additional Instructions: All medical record entries made by the Scribe were at my direction and personally dictated by me. I have reviewed the chart and agree that the record accurately reflects my personal performance of the history, physical exam, medical decision making, and the department course for this patient. I have also personally directed, reviewed, and agree with the discharge instructions and disposition. Please follow up with your PCP and monitor your sugars Please take your medications as prescribed Prescriptions: Cephalexin [Keflex] 500 mg PO BID #10 capsule Referrals: Jayy Barney MD [Primary Care Provider] - Follow up with primary Forms: [employer] (American)
[2018-05-20 11:39] LABS: ALB/GLOB RATIO 1.3 (1.1-1.8); ALBUMIN 4.5 g/dL (3.0-4.8); ALT/SGPT 20 U/L (7-56); AST/SGOT 36 U/L (14-36); BLOOD UREA NITROGEN 23 mg/dL (7-21); CALCIUM 9.4 mg/dL (8.4-10.5); GFR NON-AFRICAN AMERICAN > 60
[2018-05-20 11:51] LABS: URINE BILIRUBIN NEGATIVE (NEGATIVE); URINE BLOOD TRACE-INTACT (NEGATIVE); URINE GLUCOSE (UA) 500 mg/dL (NEGATIVE); URINE LEUKOCYTE ESTERASE MODERATE Leu/uL (NEGATIVE); URINE PROTEIN NEGATIVE mg/dL (<30 mg/dL); URINE UROBILINOGEN 0.2 E.U./dL (<1 E.U./dL)
[2018-05-20 12:08] LABS: URINE APPEARANCE CLEAR (CLEAR); URINE COLOR YELLOW (YELLOW)
[2018-05-20 12:15] LABS: URINE BACTERIA LARGE /hpf; URINE RBC 25 - 30 /hpf (0-2); URINE WBC TNTC /hpf (0-6)
[2018-05-20] MEDS ORDERED: Insulin Regular 1 UNITS/0.01 ML ML SC STA (12:57)
[2018-05-20] MEDS ORDERED: cefTRIAXone 1 gm 1 GM/100 ML BAG IVPB STA (12:57)
--- NOTE | 2018-05-20 13:15 | CARD ---
APPROVED REPORT Date of service: 05/20/2018 EKG Measurement Heart [id number] <Conclusion> Sinus rhythm with short TN Poor R Progression V Leads. ST-T Changes. Abnormal ECG
[2018-05-20 16:23] VITALS: TEMP 98; O2SAT 96
[2018-05-20 19:00] VITALS: BP 152/58; PULSE 78
== END 2018-05-20 19:15 | disposition home or self-care (01) ==
LOC: ED 10:02
DX: E11.649 Type 2 diabetes mellitus with hypoglycemia without coma (principal); Z79.4 Long term (current) use of insulin; N39.0 Urinary tract infection, site not specified; I25.10 Atherosclerotic heart disease of native coronary artery without angina pectoris; I10 Essential (primary) hypertension; Z95.1 Presence of aortocoronary bypass graft; Z85.3 Personal history of malignant neoplasm of breast
CPT/HCPCS: 80053; 81001; 82948; 85025; 87086; 93005; 96361; 96365; 99283; J0696; J7030

== ENCOUNTER 2018-06-12 09:20 | Inpatient (IN) | payer MEDICARE, BC ==
[2018-06-12 09:26] VITALS: BMI 20.5
--- NOTE | 2018-06-12 09:53 | ED PDOC ---
Arrival/HPI - General Chief Complaint: Altered Mental Status Time Seen by Provider: 06/12/18 09:34 Historian: Patient - History of Present Illness Narrative History of Present Illness (Text): 06/12/18 10:03 82-year-old female with a history of insulin-dependent diabetes presents today with hypoglycemic episode. Patient's daughter states that she called her mom in the morning like she does every day and she did not get an answer so she went to the house and found her mother standing over the area where she would check her sugar appearing like she was trying to check her sugar. She states that she appeared confused so she called 911 and the check the patient's sugar and it was 30. She was given an amp of D50 in the sugar improved to 101. At present time the patient is alert and oriented and she denies any complaints. No chest pain or shortness of breath. No dizziness or weakness. No trauma or injury. Patient states she took her 14 units of Levemir last night. Her daughter states that over the past week she has had 3 episodes of hypoglycemia in the mornings. Past Medical History - Provider Review Nursing Documentation Reviewed: Yes - Travel History Have you recently traveled outside [place] w/in the past 3 mons?: No - Infectious Disease Hx of Infectious Diseases: None - Reproductive Menopause: Yes - Cardiac Hx Cardiac Disorders: Yes Hx Hypertension: Yes - Pulmonary Hx Respiratory Disorders: No - Neurological Hx Neurological Disorder: No - HEENT Hx HEENT Disorder: No - Renal Hx Renal Disorder: No - Endocrine/Metabolic Hx Diabetes Mellitus Type 2: Yes - Hematological/Oncological Hx Blood Disorders: No - Integumentary Hx Dermatological Disorder: No - Musculoskeletal/Rheumatological Hx Falls: No - Gastrointestinal Hx Gastrointestinal Disorders: No - Genitourinary/Gynecological Hx Genitourinary Disorders: No - Psychiatric Hx Psychophysiologic Disorder: No Hx Substance Use: No - Surgical History Hx Open Heart Surgery: Yes (CABG x2) Other/Comment: breast Ca R lumphectomy - Anesthesia Hx Anesthesia: Yes Hx Anesthesia Reactions: No Hx Malignant Hyperthermia: No - Suicidal Assessment Feels Threatened In Home Enviroment: No Family/Social History - Physician Review Nursing Documentation Reviewed: Yes Family/Social History: Unknown Family HX Smoking Status: Never Smoked Hx Alcohol Use: No Hx Substance Use: No Allergies/Home Meds Allergies/Adverse Reactions: Allergies No Known Allergies Allergy (Verified 03/05/18 09:24) Review of Systems - Review of Systems Constitutional: absent: Fatigue, Fevers ENT: absent: Sore Throat, Sinus Congestion Respiratory: absent: SOB, Cough Cardiovascular: absent: Chest Pain, Palpitations Gastrointestinal: absent: Abdominal Pain, Nausea, Vomiting Genitourinary Female: absent: Dysuria, Frequency, Hematuria Musculoskeletal: absent: Arthralgias, Back Pain, Neck Pain Skin: absent: Rash, Pruritis Neurological: absent: Headache, Dizziness Psychiatric: absent: Anxiety, Depression Physical Exam Vital Signs Reviewed: Yes Vital Signs Temp Pulse Resp BP Pulse Ox 06/12/18 09:32 97.5 F L 70 18 121/95 H 100 Temperature: Afebrile Blood Pressure: Normal Pulse: Regular Respiratory Rate: Normal Appearance: Positive for: Well-Appearing, Non-Toxic, Comfortable Pain Distress: None Mental Status: Positive for: Alert and Oriented X 3 Finger Stick Blood Glucose: 99 - Systems Exam Head: Present: Atraumatic Mouth: Present: Moist Mucous Membranes Neck: Present: Normal Range of Motion Respiratory/Chest: Present: Clear to Auscultation, Good Air Exchange. No: Respiratory Distress, Accessory Muscle Use Cardiovascular: Present: Regular Rate and Rhythm, Normal S1, S2. No: Murmurs Abdomen: No: Tenderness, Distention, Peritoneal Signs, Rebound, Guarding Back: Present: Normal Inspection Upper Extremity: Present: Normal ROM Lower Extremity: Present: Normal ROM Neurological: Present: GCS=15, Speech Normal Skin: Present: Warm, Dry, Normal Color. No: Rashes Psychiatric: Present: Alert, Other (oriented x 2) Medical Decision Making ED Course and Treatment: 06/12/18 10:55 82yr old female with hx of DM with hypoglycemia at home. fs: 99 alert and oriented x 2. no distress. denies any complaints. cbc: wnl cmp glucose; 169 cxr: wnl ekg; sinus rhythm at [address] elevations QTC 434 ua; eating breakfast in er. drinking coffee. 06/12/18 11:21 pt reassessment; non toxic well appearing no distress. stable vitals. glucose; 332 after food. case discussed with dr. frazier; accepts obs admission to remote tele. Impression; hypoglycemia admit obs - RAD Interpretation Radiology Orders: 06/12/18 09:44 CHEST PORTABLE [RAD] Stat Disposition/Present on Arrival - Present on Arrival Any Indicators Present on Arrival: No History of DVT/PE: No History of Uncontrolled Diabetes: No Urinary Catheter: No History of Decub. Ulcer: No History Surgical Site Infection Following: None - Disposition Have Diagnosis and Disposition been Completed?: Yes Diagnosis: Hypoglycemia Disposition: HOSPITALIZED Disposition Time: 11:26 Patient Plan: Observation Patient Problems: Current Active Problems Problem Status Onset Hypoglycemia Acute Condition: FAIR
[2018-06-12 10:08] LABS: BASO # 0.02 K/mm3 (0.0-2.0); BASO % 0.3 % (0.0-3.0); EOS # 0.1 (0.0-0.7); EOS % 2.3 % (1.5-5.0); HEMOGLOBIN 11.5 g/dL (12.0-16.0); LYMPH # 0.8 (1.2-3.4); LYMPH % 12.5 % (22.0-35.0); MEAN CELL VOLUME 92.4 fl (80.0-105.0); MEAN CORPUSCULAR HEMOGLOBIN 30.1 pg (25.0-35.0); MEAN CORPUSCULAR HGB CONC 32.6 g/dl (31.0-37.0); MEAN PLATELET VOLUME 8.7 fl (7.0-11.0); MONO # 0.7 (0.1-0.6); RBC 3.82 10^6/uL (3.5-6.1); RED CELL DISTRIBUTION WIDTH 13.6 % (11.5-14.5); WHITE BLOOD COUNT 6.2 10^3/uL (4.5-11.0)
[2018-06-12 10:30] LABS: TROPONIN I < 0.01 ng/mL
[2018-06-12 10:33] LABS: ALB/GLOB RATIO 1.1 (1.1-1.8); ALBUMIN 3.3 g/dL (3.0-4.8); ALT/SGPT 24 U/L (7-56); AST/SGOT 48 U/L (14-36); BLOOD UREA NITROGEN 15 mg/dL (7-21); CALCIUM 7.8 mg/dL (8.4-10.5); GFR NON-AFRICAN AMERICAN > 60
[2018-06-12 10:53] LABS: CK MB% 1.2 % (2.5-3.0); CK-MB 6.7 ng/mL (0.0-3.6)
[2018-06-12] MEDS ORDERED: Dextrose 50% SYRINGE Inj (50 ml) IV PRN (13:09)
[2018-06-12 13:14] LABS: URINE BILIRUBIN NEGATIVE (NEGATIVE); URINE BLOOD NEGATIVE (NEGATIVE); URINE GLUCOSE (UA) >=1000 mg/dL (NEGATIVE); URINE LEUKOCYTE ESTERASE TRACE Leu/uL (NEGATIVE); URINE PROTEIN NEGATIVE mg/dL (<30 mg/dL); URINE UROBILINOGEN 0.2 E.U./dL (<1 E.U./dL)
[2018-06-12 13:16] LABS: URINE APPEARANCE CLEAR (CLEAR); URINE COLOR YELLOW (YELLOW)
[2018-06-12] MEDS ORDERED: Insulin Regular 1 UNITS/0.01 ML ML SC STA (13:16)
--- NOTE | 2018-06-12 13:17 | RAD ---
Date of service: 06/12/2018 HISTORY: hypoglycemia COMPARISON: 05/02/2018. FINDINGS: LUNGS: The lungs are hyperinflated and there is peribronchial thickening with chronic changes in both lungs. No focal consolidation. There is mild pulmonary venous congestion. PLEURA: No pleural effusions or pneumothorax. CARDIOVASCULAR: The heart is normal in size. Status post median sternotomy. No aortic atherosclerotic calcifications present. OSSEOUS STRUCTURES: There an S-shaped scoliosis in the thoracolumbar spine. VISUALIZED UPPER ABDOMEN: Normal. OTHER FINDINGS: There are multiple surgical clips in the right axilla with IMPRESSION: No active pulmonary disease. COPD.
[2018-06-12 13:18] LABS: URINE RBC 0 - 2 /hpf (0-2)
[2018-06-12 13:19] LABS: URINE AMORPHOUS SEDIMENT FEW /hpf; URINE BACTERIA MOD /hpf; URINE CALCIUM OXALATE CRYSTALS SMALL /hpf
--- NOTE | 2018-06-12 13:19 | CP.PCM.HP ---
<Seamus Pham - Last Filed: 06/12/18 16:24> History of Present Illness - History of Present Illness History of Present Illness: Internal Medicine History and Physical (Dr. Patel's Service): CC: Hypoglycemia HPI: Mrs. Ceja is an 82 year old female with a past medical history significant for IDDM1 (Diagnosed at age 22), CAD s/p two CABGs, HTN, hypothyroidism, and Breast Cancer (in remission s/p SHAKER OUT and lumpectomy) who presents for hypoglycemia. Patient is accompanied by her daughter at bedside in the ED. According to the patients daughter, patient did not answer the phone when she called her this morning and this prompted her to check on her. When she arrived at patients home, she found patient attempting to check her blood sugar but with noted confusion/AMS. Patients daughter called 911 and, after EMS arrived, her blood sugar was found to be 30. She was given an amp of dextrose and her AMS resolved as well as her hypoglycemia prior to arrival in the ED. Patient is taking Levemir 14u HS (recently switched from Lantus 10u HS) and Humalog 6u AC. She has good compliance with her insulin and has adequate PO intake of a balanced diet with small snacks in between meals and at bedtime. Of note, patient has a log with her recorded blood sugars and there are several instances of AM hypoglycemia. This is never present in the afternoons and there are readings exceeding 300 in the afternoons. Also of note, patient was recently admitted on multiple occasions for similar complaints. Patient denies any complaints and is resting comfortably. Further 12 point ROS reviewed and unrem arkable at this time. 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 Barney Process Steward: Dr. Garzon Present on Admission - Present on Admission Any Indicators Present on Admission: No Review of Systems - Review of Systems Review of Systems: As stated in HPI, otherwise negative Past Patient History - Infectious Disease Hx of Infectious Diseases: None - Past Medical History & Family History Past Medical History?: Yes - Past Social History Smoking Status: Never Smoked - CARDIAC Hx Cardiac Disorders: Yes Hx Hypertension: Yes - PULMONARY Hx Respiratory Disorders: No - NEUROLOGICAL Hx Neurological Disorder: No - HEENT Hx HEENT Problems: No - RENAL Hx Chronic Kidney Disease: No - ENDOCRINE/METABOLIC Hx Diabetes Mellitus Type 2: Yes - HEMATOLOGICAL/ONCOLOGICAL Hx Blood Disorders: No - INTEGUMENTARY Hx Dermatological Problems: No - MUSCULOSKELETAL/RHEUMATOLOGICAL Hx Falls: No - GASTROINTESTINAL Hx Gastrointestinal Disorders: No - GENITOURINARY/GYNECOLOGICAL Hx Genitourinary Disorders: No - PSYCHIATRIC Hx Psychophysiologic Disorder: No Hx Substance Use: No - SURGICAL HISTORY Hx Open Heart Surgery: Yes (CABG x2) Other/Comment: breast Ca R lumphectomy - ANESTHESIA Hx Anesthesia: Yes Hx Anesthesia Reactions: No Hx Malignant Hyperthermia: No Meds Allergies/Adverse Reactions: Allergies Allergy/AdvReac Type Severity Reaction Status Date / Time No Known Allergies Allergy Verified 03/05/18 09:24 Physical Exam - Constitutional Appears: Non-toxic, No Acute Distress - Head Exam Head Exam: ATRAUMATIC, NORMOCEPHALIC - Eye Exam Eye Exam: EOMI, Normal appearance - ENT Exam ENT Exam: Mucous Membranes Moist - Neck Exam Neck exam: Positive for: Full Rom - Respiratory Exam Respiratory Exam: Clear to Auscultation Bilateral, NORMAL BREATHING PATTERN. absent: Accessory Muscle Use, Chest Wall Tenderness, Rhonchi, Wheezes, Respiratory Distress - Cardiovascular Exam Cardiovascular Exam: REGULAR RHYTHM, RRR, +S1, +S2 Additional comments: Sternotomy wire penetrating through anterior chest wall with minimal surrounding erythema - GI/Abdominal Exam GI & Abdominal Exam: Normal Bowel Sounds, Soft. absent: Tenderness - Extremities Exam Extremities exam: Positive for: full ROM. Negative for: calf tenderness, pedal edema - Neurological Exam Neurological exam: Alert, Oriented x3 - Psychiatric Exam Psychiatric exam: Normal Affect, Normal Mood - Skin Skin Exam: Dry, Normal Color, Warm Results - Vital Signs Recent Vital Signs: Last Vital Signs Temp 97.5 F L 06/12/18 09:32 Pulse 78 06/12/18 11:54 Resp 18 06/12/18 11:54 BP 124/77 06/12/18 11:54 Pulse Ox 98 06/12/18 11:54 - Labs Result Diagrams: 06/12/18 10:00 06/12/18 10:00 Labs: Laboratory Results - last 24 hr 06/12/18 06/12/18 06/12/18 09:29 10:00 10:00 WBC 6.2 D RBC 3.82 Hgb 11.5 L Hct 35.3 L MCV 92.4 MCH 30.1 MCHC 32.6 RDW 13.6 Plt Count 193 MPV 8.7 Neut % (Auto) 73.9 H Lymph % (Auto) 12.5 L Navarro % (Auto) 11.0 H Eos % (Auto) 2.3 Baso % (Auto) 0.3 Lymph # (Auto) 0.8 L [place] # (Auto) 0.7 H Eos # (Auto) 0.1 Baso # (Auto) 0.02 Absolute Neuts (auto) 4.55 Sodium 134 Potassium 4.2 Chloride 101 Carbon Dioxide 26 Anion Gap 12 BUN 15 Creatinine 0.5 L Est GFR ( Amer) > 60 Est GFR (Non-Af Amer) > 60 POC Glucose (mg/dL) 99 Random Glucose 169 H Calcium 7.8 L Total Bilirubin 0.7 AST 48 H D ALT 24 Alkaline Phosphatase 63 Lactate Dehydrogenase 628 Total Creatine Kinase 551 H CK-MB (CK-2) 6.7 H CK-MB (CK-2) % 1.2 L Troponin I < 0.01 Total Protein 6.4 Albumin 3.3 Globulin 3.1 Albumin/Globulin Ratio 1.1 Urine Color Urine Appearance Urine pH Ur Specific [place] Urine Protein Urine Glucose (UA) Urine Ketones Urine Blood Urine Nitrate Urine Bilirubin Urine Urobilinogen Ur Leukocyte Esterase 06/12/18 06/12/18 06/12/18 11:02 13:00 13:12 WBC RBC Hgb Hct MCV MCH MCHC RDW Plt Count MPV Neut % (Auto) Lymph % (Auto) Navarro % (Auto) Eos % (Auto) Baso % (Auto) Lymph # (Auto) [place] # (Auto) Eos # (Auto) Baso # (Auto) Absolute Neuts (auto) Sodium Potassium Chloride Carbon Dioxide Anion Gap BUN Creatinine Est GFR ( Amer) Est GFR (Non-Af Amer) POC Glucose (mg/dL) 332 H 455 H* Random Glucose Calcium Total Bilirubin AST ALT Alkaline Phosphatase Lactate Dehydrogenase Total Creatine Kinase CK-MB (CK-2) CK-MB (CK-2) % Troponin I Total Protein Albumin Globulin Albumin/Globulin Ratio Urine Color Yellow Urine Appearance Clear Urine pH 7.0 Ur Specific [place] 1.010 Urine Protein Negative Urine Glucose (UA) >=1000 Urine Ketones Negative Urine Blood Negative Urine Nitrate Negative Urine Bilirubin Negative Urine Urobilinogen 0.2 Ur Leukocyte Esterase Trace H Assessment & Plan - Assessment and Plan (Free Text) Assessment: 82 year old female with a past medical history significant for IDDM1 (Diagnosed at age 22), CAD s/p two CABGs, HTN, and Breast Cancer (in remission s/p SHAKER OUT and lumpectomy) who presents for hypoglycemia. Plan: 1. Hypoglycemia in IDDM2 -Acutely resolved -Chest X-Ray and UA showing no signs of infections -Decreased Levemir dosage to 10u HS -SSI-Low and Accuchecks ACHS -Carbohydrate Consistent Diet -Hypoglycemia protocol -Refinery Operator Visbreaking consulted, all recommendations appreciated 2. History of CAD s/p CABG -EKG showed NSR without ST segment changes -Continue home Coreg, ASA and Imdur 3. History of Hypothyroidism -Continue home Synthroid 4. History of HTN -Continue home Lisinopril and Lasix DVT Prophylaxis: Lovenox Code Status: DNR/DNI (as verbally expressed by patient while in ED to primary medicine team upon admission) Patient seen and case discussed with attending, Dr. Patel. Seamus Pham PGY2 - Date & Time Date: 06/12/18 Time: 13:19 <Saadia Patel - Last Filed: 06/12/18 18:04> Results - Vital Signs Recent Vital Signs: Last Vital Signs Temp 98.2 F 06/12/18 14:35 Pulse 74 06/12/18 17:28 Resp 18 06/12/18 15:12 BP 179/71 H 06/12/18 17:28 Pulse Ox 98 06/12/18 14:35 - Labs Result Diagrams: 06/12/18 10:00 06/12/18 10:00 Labs: Laboratory Results - last 24 hr 06/12/18 06/12/18 06/12/18 09:29 10:00 10:00 WBC 6.2 D RBC 3.82 Hgb 11.5 L Hct 35.3 L MCV 92.4 MCH 30.1 MCHC 32.6 RDW 13.6 Plt Count 193 MPV 8.7 Neut % (Auto) 73.9 H Lymph % (Auto) 12.5 L Navarro % (Auto) 11.0 H Eos % (Auto) 2.3 Baso % (Auto) 0.3 Lymph # (Auto) 0.8 L [place] # (Auto) 0.7 H Eos # (Auto) 0.1 Baso # (Auto) 0.02 Absolute Neuts (auto) 4.55 Sodium 134 Potassium 4.2 Chloride 101 Carbon Dioxide 26 Anion Gap 12 BUN 15 Creatinine 0.5 L Est GFR ( Amer) > 60 Est GFR (Non-Af Amer) > 60 POC Glucose (mg/dL) 99 Random Glucose 169 H Calcium 7.8 L Total Bilirubin 0.7 AST 48 H D ALT 24 Alkaline Phosphatase 63 Lactate Dehydrogenase 628 Total Creatine Kinase 551 H CK-MB (CK-2) 6.7 H CK-MB (CK-2) % 1.2 L Troponin I < 0.01 Total Protein 6.4 Albumin 3.3 Globulin 3.1 Albumin/Globulin Ratio 1.1 Urine Color Urine Appearance Urine pH Ur Specific [place] Urine Protein Urine Glucose (UA) Urine Ketones Urine Blood Urine Nitrate Urine Bilirubin Urine Urobilinogen Ur Leukocyte Esterase Urine RBC Urine WBC Ur Epithelial Cells Calcium Oxalate Crystal Amorphous Sediment Urine Bacteria Urine Other 06/12/18 06/12/18 06/12/18 11:02 13:00 13:12 WBC RBC Hgb Hct MCV MCH MCHC RDW Plt Count MPV Neut % (Auto) Lymph % (Auto) [place] % (Auto) Eos % (Auto) Baso % (Auto) Lymph # (Auto) [place] # (Auto) Eos # (Auto) Baso # (Auto) Absolute Neuts (auto) Sodium Potassium Chloride Carbon Dioxide Anion Gap BUN Creatinine Est GFR ( Amer) Est GFR (Non-Af Amer) POC Glucose (mg/dL) 332 H 455 H* Random Glucose Calcium Total Bilirubin AST ALT Alkaline Phosphatase Lactate Dehydrogenase Total Creatine Kinase CK-MB (CK-2) CK-MB (CK-2) % Troponin I Total Protein Albumin Globulin Albumin/Globulin Ratio Urine Color Yellow Urine Appearance Clear Urine pH 7.0 Ur Specific [place] 1.010 Urine Protein Negative Urine Glucose (UA) >=1000 Urine Ketones Negative Urine Blood Negative Urine Nitrate Negative Urine Bilirubin Negative Urine Urobilinogen 0.2 Ur Leukocyte Esterase Trace H Urine RBC 0 - 2 Urine WBC 2 - 5 Ur Epithelial Cells 3 - 4 Calcium Oxalate Crystal Small Amorphous Sediment Few Urine Bacteria Mod Urine Other Uyeast 06/12/18 06/12/18 14:35 16:18 WBC RBC Hgb Hct MCV MCH MCHC RDW Plt Count MPV Neut % (Auto) Lymph % (Auto) Navarro % (Auto) Eos % (Auto) Baso % (Auto) Lymph # (Auto) [place] # (Auto) Eos # (Auto) Baso # (Auto) Absolute Neuts (auto) Sodium Potassium Chloride Carbon Dioxide Anion Gap BUN Creatinine Est GFR ( Amer) Est GFR (Non-Af Amer) POC Glucose (mg/dL) 404 H* 239 H Random Glucose Calcium Total Bilirubin AST ALT Alkaline Phosphatase Lactate Dehydrogenase Total Creatine Kinase CK-MB (CK-2) CK-MB (CK-2) % Troponin I Total Protein Albumin Globulin Albumin/Globulin Ratio Urine Color Urine Appearance Urine pH Ur Specific [place] Urine Protein Urine Glucose (UA) Urine Ketones Urine Blood Urine Nitrate Urine Bilirubin Urine Urobilinogen Ur Leukocyte Esterase Urine RBC Urine WBC Ur Epithelial Cells Calcium Oxalate Crystal Amorphous Sediment Urine Bacteria Urine Other Attending/Attestation - Attestation I have personally seen and examined this patient.: Yes I have fully participated in the care of the patient.: Yes I have reviewed all pertinent clinical information: Yes Notes (Text): 06/12/18 18:03 Medical record note made by the resident after discussion with my direction and input after the patient was personally seen and examined by me. I have reviewed the chart and agree that the record accurately reflects by personal performance of the history, physical exam, data review, and medical decision-making, in the course for the patient. I have also personally directed the plan of care.
[2018-06-12] MEDS: Insulin Reg-LOW-Coverage SC SCH ×2 (17:29→22:00)
[2018-06-12] MEDS: Insulin Detemir 100 units/ml Vial (Levemir) SC SCH (22:00)
--- NOTE | 2018-06-12 23:50 | CARD ---
APPROVED REPORT Date of service: 06/12/2018 EKG Measurement Heart [id number] <Conclusion> Sinus rhythm with short PRt Anterior infarct, age undetermined Abnormal ECG
[2018-06-13] MEDS: Levothyroxine 125 MCG TAB PO SCH (06:28)
[2018-06-13 07:04] LABS: BASO # 0.03 K/mm3 (0.0-2.0); BASO % 0.5 % (0.0-3.0); EOS # 0.2 (0.0-0.7); EOS % 4.2 % (1.5-5.0); HEMOGLOBIN 11.8 g/dL (12.0-16.0); LYMPH # 1.5 (1.2-3.4); LYMPH % 25.7 % (22.0-35.0); MEAN CELL VOLUME 93.2 fl (80.0-105.0); MEAN CORPUSCULAR HEMOGLOBIN 29.7 pg (25.0-35.0); MEAN CORPUSCULAR HGB CONC 31.9 g/dl (31.0-37.0); MEAN PLATELET VOLUME 9.2 fl (7.0-11.0); MONO # 0.6 (0.1-0.6); MONO % 9.8 % (1.0-6.0); RBC 3.97 10^6/uL (3.5-6.1); RED CELL DISTRIBUTION WIDTH 13.8 % (11.5-14.5); WHITE BLOOD COUNT 5.7 10^3/uL (4.5-11.0)
[2018-06-13 07:21] LABS: ALB/GLOB RATIO 1.2 (1.1-1.8); ALBUMIN 3.7 g/dL (3.0-4.8); ALT/SGPT 25 U/L (7-56); AST/SGOT 43 U/L (14-36); BLOOD UREA NITROGEN 18 mg/dL (7-21); CALCIUM 9.1 mg/dL (8.4-10.5); GFR NON-AFRICAN AMERICAN > 60
[2018-06-13 07:28] LABS: CK-MB 2.5 ng/mL (0.0-3.6)
[2018-06-13] MEDS: Insulin Reg-LOW-Coverage SC SCH ×4 (08:36→21:44)
[2018-06-13] MEDS: Enoxaparin 40 mg Syringe SC SCH (09:42)
--- NOTE | 2018-06-13 13:54 | CP.PCM.PN ---
Subjective - Date & Time of Evaluation Date of Evaluation: 06/13/18 Time of Evaluation: 11:00 - Subjective Subjective: INTERNAL MEDICINE PROGRESS NOTE Mira Zepeda PGY1 Pt seen and examined at bedside this am. No acute events overnight. Pt is tolerating diet, conversing well, denying 12 point ROS Objective - Vital Signs/Intake and Output Vital Signs (last 24 hours): Temp Pulse Resp BP Pulse Ox 98.6 F 65 20 153/73 H 97 06/13/18 08:09 06/13/18 10:00 06/13/18 08:09 06/13/18 09:42 06/13/18 08:09 Intake and Output: 06/13/18 06/13/18 06:59 18:59 Intake Total 240 Output Total 400 Balance -160 - Medications Medications: Current Medications Aspirin (Aspirin Chewable) 81 mg PO DAILY [facility] Last Admin: 06/13/18 09:43 Dose: 81 mg Carvedilol (Coreg) 12.5 mg PO BID [facility] Last Admin: 06/13/18 09:41 Dose: 12.5 mg Dextrose (Dextrose 50% Inj) 0 ml IV STAT PRN; Protocol PRN Reason: Hypoglycemia Protocol Enoxaparin Sodium (Lovenox) 40 mg SC DAILY [facility]; Protocol Last Admin: 06/13/18 09:42 Dose: 40 mg Furosemide (Lasix) 20 mg PO DAILY [facility] Last Admin: 06/13/18 09:42 Dose: 20 mg Dextrose (Dextrose 5% In Water 1000 Ml) 1,000 mls @ 0 mls/hr IV .Q0M PRN; Protocol PRN Reason: Hypoglycemia Protocol Insulin Detemir (Levemir) 10 unit SC HS [facility] Last Admin: 06/12/18 22:00 Dose: Not Given Insulin Human Lispro (Humalog) 4 units SC AC [facility] Insulin Human Regular (Humulin R Low) 0 units SC ACHS [facility]; Protocol Last Admin: 06/13/18 12:50 Dose: 5 units Isosorbide Mononitrate (Imdur) 60 mg PO DAILY [facility] Last Admin: 06/13/18 09:41 Dose: 60 mg Levothyroxine Sodium (Synthroid) 125 mcg PO 0600 [facility] Last Admin: 06/13/18 06:28 Dose: 125 mcg Lisinopril (Zestril) 2.5 mg PO DAILY [facility] Last Admin: 06/13/18 09:42 Dose: 2.5 mg - Labs Labs: 06/13/18 05:00 06/13/18 05:00 - Constitutional Appears: Non-toxic, No Acute Distress - Head Exam Head Exam: ATRAUMATIC, NORMOCEPHALIC - Eye Exam Eye Exam: EOMI, Normal appearance - ENT Exam ENT Exam: Mucous Membranes Moist - Neck Exam Neck exam: Positive for: Full Rom - Respiratory Exam Respiratory Exam: Clear to Auscultation Bilateral, NORMAL BREATHING PATTERN. absent: Accessory Muscle Use, Chest Wall Tenderness, Rhonchi, Wheezes, Respiratory Distress - Cardiovascular Exam Cardiovascular Exam: REGULAR RHYTHM, RRR, +S1, +S2 Additional comments: Sternotomy wire penetrating through anterior chest wall with minimal surrounding erythema - GI/Abdominal Exam GI & Abdominal Exam: Normal Bowel Sounds, Soft. absent: Tenderness - Extremities Exam Extremities exam: Positive for: full ROM. Negative for: calf tenderness, pedal edema - Neurological Exam Neurological exam: Alert, Oriented x3 - Psychiatric Exam Psychiatric exam: Normal Affect, Normal Mood - Skin Skin Exam: Dry, Normal Color, Warm Assessment and Plan - Assessment and Plan (Free Text) Assessment: 82 year old female with a past medical history significant for IDDM1 (Diagnosed at age 22), CAD s/p two CABGs, HTN, and Breast Cancer (in remission s/p HOTEL MAID and lumpectomy) who presents for hypoglycemia. Plan: Hypoglycemia in IDDM2 -Acutely resolved -Started lispro 4u AC -Decreased Levemir dosage to 10u HS -SSI-Low and Accuchecks ACHS -Carbohydrate Consistent Diet -Hypoglycemia protocol -Trip Rider consulted, all recommendations appreciated -May consider endocrinology consult for labile BS CAD s/p CABG -EKG showed NSR without ST segment changes -Continue home Coreg, ASA, and Imdur Hypothyroidism -Continue home Synthroid HTN -Continue home Lisinopril and Lasix DVT Prophylaxis: Lovenox Code Status: DNR/DNI (as verbally expressed by patient while in ED to primary medicine team upon admission) Case reviewed with Dr Jorge Zepeda PGY1
[2018-06-13] MEDS: Insulin Lispro 1 UNITS/0.01 ML SC SCH (17:24)
[2018-06-13] MEDS: Insulin Detemir 100 units/ml Vial (Levemir) SC SCH (21:46)
[2018-06-14] MEDS: Levothyroxine 125 MCG TAB PO SCH (05:10)
[2018-06-14] MEDS: Insulin Lispro 1 UNITS/0.01 ML SC SCH ×3 (08:04→17:20)
[2018-06-14] MEDS: Insulin Reg-LOW-Coverage SC SCH ×2 (08:05→12:24)
[2018-06-14] MEDS: Enoxaparin 40 mg Syringe SC SCH (10:08)
[2018-06-14] MEDS ORDERED: Insulin Detemir 100 units/ml Vial (Levemir) SC SCH ×3 (11:08→14:33)
--- NOTE | 2018-06-14 11:12 | CP.PCM.PN ---
<FrancAvery - Last Filed: 06/14/18 12:49> Subjective - Date & Time of Evaluation Date of Evaluation: 06/14/18 Time of Evaluation: 11:09 - Subjective Subjective: Medicine Progress Note for Dr. Flores 82F seen and evaluated at bedside this morning. No acute events overnight. No complaints today. No symptoms of hypoglycemia. Denies f/c, n/v/d, headaches, dizziness, SOB, CP, or urinary symptoms. Objective - Vital Signs/Intake and Output Vital Signs (last 24 hours): Temp Pulse Resp BP Pulse Ox 98.6 F 69 20 147/66 98 06/14/18 08:03 06/14/18 10:07 06/14/18 08:03 06/14/18 10:07 06/14/18 08:03 Intake and Output: 06/14/18 06/14/18 06:59 18:59 Intake Total 120 Balance 120 - Medications Medications: Current Medications Aspirin (Aspirin Chewable) 81 mg PO DAILY [facility] Last Admin: 06/14/18 10:06 Dose: 81 mg Carvedilol (Coreg) 12.5 mg PO BID [facility] Last Admin: 06/14/18 10:06 Dose: 12.5 mg Dextrose (Dextrose 50% Inj) 0 ml IV STAT PRN; Protocol PRN Reason: Hypoglycemia Protocol Enoxaparin Sodium (Lovenox) 40 mg SC DAILY [facility]; Protocol Last Admin: 06/14/18 10:08 Dose: 40 mg Furosemide (Lasix) 20 mg PO DAILY [facility] Last Admin: 06/14/18 10:07 Dose: 20 mg Dextrose (Dextrose 5% In Water 1000 Ml) 1,000 mls @ 0 mls/hr IV .Q0M PRN; Protocol PRN Reason: Hypoglycemia Protocol Insulin Detemir (Levemir) 8 unit SC HS [facility] Insulin Human Lispro (Humalog) 6 units SC AC [facility] Insulin Human Regular (Humulin R Low) 0 units SC ACHS [facility]; Protocol Last Admin: 06/14/18 08:05 Dose: Not Given Isosorbide Mononitrate (Imdur) 60 mg PO DAILY [facility] Last Admin: 06/14/18 10:07 Dose: 60 mg Levothyroxine Sodium (Synthroid) 125 mcg PO 0600 [facility] Last Admin: 06/14/18 05:10 Dose: 125 mcg Lisinopril (Zestril) 2.5 mg PO DAILY [facility] Last Admin: 06/14/18 10:07 Dose: 2.5 mg - Labs Labs: 06/13/18 05:00 06/13/18 05:00 - Constitutional Appears: Well, Non-toxic, No Acute Distress - Head Exam Head Exam: ATRAUMATIC, NORMAL INSPECTION, NORMOCEPHALIC - Eye Exam Eye Exam: EOMI Pupil Exam: PERRL - ENT Exam ENT Exam: Mucous Membranes Moist - Respiratory Exam Respiratory Exam: NORMAL BREATHING PATTERN. absent: Wheezes, Respiratory Distress - Cardiovascular Exam Cardiovascular Exam: REGULAR RHYTHM. absent: Tachycardia - GI/Abdominal Exam GI & Abdominal Exam: Soft, Normal Bowel Sounds. 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 Plan: Hypoglycemia in IDDM2 - Increased to lispro 6u AC - Decreased Levemir dosage to 8u HS - SSI-Low - Accuchecks ACHS - Carbohydrate Consistent Diet - Hypoglycemia protocol - Enterprise Cloud Architect consulted, all recommendations appreciated - Pending Endocrinology recommendations CAD s/p CABG - EKG showed NSR without ST segment changes - Continue home Coreg, ASA, Imdur, and Lasix Hypothyroidism - Continue home Synthroid HTN - Continue home Lisinopril PPX DVT: Lovenox GI: Not indicated Patient plan reviewed and discussed with Dr. Sandra Bruner PGY1 <Lori Flores - Last Filed: 06/14/18 15:05> Objective - Vital Signs/Intake and Output Vital Signs (last 24 hours): Temp Pulse Resp BP Pulse Ox 98.6 F 69 20 147/66 98 06/14/18 08:03 06/14/18 10:07 06/14/18 08:03 06/14/18 10:07 06/14/18 08:03 Intake and Output: 06/14/18 06/14/18 06:59 18:59 Intake Total 120 Balance 120 - Medications Medications: Current Medications Aspirin (Aspirin Chewable) 81 mg PO DAILY [facility] Last Admin: 06/14/18 10:06 Dose: 81 mg Carvedilol (Coreg) 12.5 mg PO BID [facility] Last Admin: 06/14/18 10:06 Dose: 12.5 mg Dextrose (Dextrose 50% Inj) 0 ml IV STAT PRN; Protocol PRN Reason: Hypoglycemia Protocol Enoxaparin Sodium (Lovenox) 40 mg SC DAILY [facility]; Protocol Last Admin: 06/14/18 10:08 Dose: 40 mg Furosemide (Lasix) 20 mg PO DAILY [facility] Last Admin: 06/14/18 10:07 Dose: 20 mg Dextrose (Dextrose 5% In Water 1000 Ml) 1,000 mls @ 0 mls/hr IV .Q0M PRN; Protocol PRN Reason: Hypoglycemia Protocol Insulin Detemir (Levemir) 6 unit SC HS [facility] Insulin Human Lispro (Humalog) 6 units SC AC [facility] Last Admin: 06/14/18 12:25 Dose: 6 units Insulin Human Lispro (Humalog Low) 0 units SC ACHS [facility]; Protocol Isosorbide Mononitrate (Imdur) 60 mg PO DAILY [facility] Last Admin: 06/14/18 10:07 Dose: 60 mg Levothyroxine Sodium (Synthroid) 125 mcg PO 0600 [facility] Last Admin: 06/14/18 05:10 Dose: 125 mcg Lisinopril (Zestril) 2.5 mg PO DAILY [facility] Last Admin: 06/14/18 10:07 Dose: 2.5 mg - Labs Labs: 06/13/18 05:00 06/13/18 05:00 Attending/Attestation - Attestation I have personally seen and examined this patient.: Yes I have fully participated in the care of the patient.: Yes I have reviewed all pertinent clinical information, including history, physical exam and plan: Yes Notes (Text): 06/14/18 15:02 82 year old female with past medical history of diabetes, hypertension, CAD s/p CABG and breast cancer who is admitted for hypoglycemia. Patient's fingersticks have been labile over past few days, still hypoglycemic in AM (70 this morning) with hyperglycemic episodes during the day. Her pm levemir dose is decreased today and her lispro is increased. Endocrinology evaluation is requested. Diabetic education evaluation. Lori Flores MD Hospitalist.
--- NOTE | 2018-06-14 12:15 | CP.PCM.CON ---
History of Present Illness - History of Present Illness History of Present Illness: PGY-[address] 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 Patient states that she was brought to the hospital because she had confusion with hypoglycemia. According to chart EMS found her blood sugar to be 30. She was given an amp of dextrose and her AMS resolved as well as her hypoglycemia prior to arrival. At home patient was taking Levemir 14u HS, however recently she was switched to Lantus 10u HS and Humalog 6u AC. She has good compliance with her insulin and has adequate oral intake and a balanced diet with small snacks in between meals and at bedtime. Patient states that she has had liable sugars all her life and has had previous episodes of hypoglycemia but denies any episodes of DKA. Patient denies any complaints including headache, dizziness, sob, cheat pain, abd pain, n/v. She is resting comfortably. Further 12 point ROS reviewed and unremarkable at this time. 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 Barney Review of Systems - Review of Systems All systems: reviewed and no additional remarkable complaints except Past Patient History - Infectious Disease Hx of Infectious Diseases: None - Past Medical History & Family History Past Medical History?: Yes - Past Social History Smoking Status: Never Smoked - CARDIAC Hx Cardiac Disorders: Yes Hx Hypertension: Yes - PULMONARY Hx Respiratory Disorders: No - NEUROLOGICAL Hx Neurological Disorder: No - HEENT Hx HEENT Problems: No - RENAL Hx Chronic Kidney Disease: No - ENDOCRINE/METABOLIC Hx Diabetes Mellitus Type 2: Yes - HEMATOLOGICAL/ONCOLOGICAL Hx Blood Disorders: No - INTEGUMENTARY Hx Dermatological Problems: No - MUSCULOSKELETAL/RHEUMATOLOGICAL Hx Falls: No - GASTROINTESTINAL Hx Gastrointestinal Disorders: No - GENITOURINARY/GYNECOLOGICAL Hx Genitourinary Disorders: No - PSYCHIATRIC Hx Psychophysiologic Disorder: No Hx Substance Use: No - SURGICAL HISTORY Hx Open Heart Surgery: Yes (CABG x2) Other/Comment: breast Ca R lumphectomy - ANESTHESIA Hx Anesthesia: Yes Hx Anesthesia Reactions: No Hx Malignant Hyperthermia: No Meds Home Medications: Home Medication List Medication Instructions Recorded Confirmed Type Insulin Glargine, Recombina 6 unit SC HS 30 Days ml 06/14/18 Rx [Lantus] Insulin Lispro [humALOG] 6 units SC AC ml 06/14/18 Rx Allergies/Adverse Reactions: Allergies Allergy/AdvReac Type Severity Reaction Status Date / Time No Known Allergies Allergy Verified 03/05/18 09:24 - Medications Medications: Current Medications Aspirin (Aspirin Chewable) 81 mg PO DAILY [facility] Last Admin: 06/14/18 10:06 Dose: 81 mg Carvedilol (Coreg) 12.5 mg PO BID [facility] Last Admin: 06/14/18 10:06 Dose: 12.5 mg Dextrose (Dextrose 50% Inj) 0 ml IV STAT PRN; Protocol PRN Reason: Hypoglycemia Protocol Enoxaparin Sodium (Lovenox) 40 mg SC DAILY [facility]; Protocol Last Admin: 06/14/18 10:08 Dose: 40 mg Furosemide (Lasix) 20 mg PO DAILY [facility] Last Admin: 06/14/18 10:07 Dose: 20 mg Dextrose (Dextrose 5% In Water 1000 Ml) 1,000 mls @ 0 mls/hr IV .Q0M PRN; Protocol PRN Reason: Hypoglycemia Protocol Insulin Detemir (Levemir) 8 unit SC HS [facility] Insulin Human Lispro (Humalog) 6 units SC AC [facility] Insulin Human Regular (Humulin R Low) 0 units SC ACHS [facility]; Protocol Last Admin: 06/14/18 08:05 Dose: Not Given Isosorbide Mononitrate (Imdur) 60 mg PO DAILY [facility] Last Admin: 06/14/18 10:07 Dose: 60 mg Levothyroxine Sodium (Synthroid) 125 mcg PO 0600 [facility] Last Admin: 06/14/18 05:10 Dose: 125 mcg Lisinopril (Zestril) 2.5 mg PO DAILY [facility] Last Admin: 06/14/18 10:07 Dose: 2.5 mg Physical Exam - Additional Findings Additional findings: - Constitutional Appears: Non-toxic, No Acute Distress - Head Exam Head Exam: ATRAUMATIC, NORMOCEPHALIC - Eye Exam Eye Exam: EOMI, Normal appearance - ENT Exam ENT Exam: Mucous Membranes Moist - Neck Exam Neck exam: Positive for: Full Rom, absent: thyromegaly, tenderness - Respiratory Exam Respiratory Exam: Clear to Auscultation Bilateral, NORMAL BREATHING PATTERN. a bsent: Accessory Muscle Use, Chest Wall Tenderness, Rhonchi, Wheezes, Respiratory Distress - Cardiovascular Exam Cardiovascular Exam: REGULAR RHYTHM, RRR, +S1, +S2. absent: murmurs Additional comments: Sternotomy wire penetrating through anterior chest wall with minimal surrounding erythema - GI/Abdominal Exam GI & Abdominal Exam: Normal Bowel Sounds, Soft. absent: Tenderness - Extremities Exam Extremities exam: Positive for: full ROM. Negative for: calf tenderness, pedal edema - Neurological Exam Neurological exam: Alert, Oriented x3 - Psychiatric Exam Psychiatric exam: Normal Affect, Normal Mood - Skin Skin Exam: Dry, Normal Color, Warm Results - Vital Signs Recent Vital Signs: Last Vital Signs Temp 98.6 F 06/14/18 08:03 Pulse 69 06/14/18 10:07 Resp 20 06/14/18 08:03 BP 147/66 06/14/18 10:07 Pulse Ox 98 06/14/18 08:03 - Labs Result Diagrams: 06/13/18 05:00 06/13/18 05:00 Labs: Laboratory Results - last 24 hr 06/13/18 06/13/18 06/14/18 16:08 21:11 01:58 POC Glucose (mg/dL) 245 H 141 H 114 H 06/14/18 06/14/18 07:23 12:06 POC Glucose (mg/dL) 70 279 H Assessment & Plan - Assessment and Plan (Free Text) Assessment: 82 yo female with PMH of type 1 diabetes (Diagnosed at age 22), CAD s/p two CABGs, HTN, hypothyroidism, and Breast Cancer (in remission s/p 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 her sugars have ranged from 70 to 362. We will decrease her levemir to 6 units HS to avoid hypoglycemia and keep her humalog 6 units ac. Continue to monitors blood sugar over night. Case discussed with attending, Dr. Moon
[2018-06-14] MEDS: Insulin Lispro (humaLOG) LOW Coverage SC SCH ×2 (17:19→22:01)
--- NOTE | 2018-06-14 21:15 | CON ---
DATE OF CONSULTATION: 06/14/2018 ENDOCRINOLOGY CONSULTATION ROOM: 375 HISTORY OF PRESENT ILLNESS: This is an 82-year-old female with known history of type 1 insulin-dependent diabetes, presenting here with symptomatic hypoglycemia and associated confusion and altered mental status, and is now being referred for diabetic evaluation and management. She was apparently found by her daughter at home with altered mental status, confusion, and disorientation following an attempt to call with no response from the patient and was found to have glucose levels of 30 mg/dL. The paramedics were called in and they gave her D50 bolus injections and was brought into the ER for further workup and management. 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 History of hypertension and dyslipidemia; history of coronary artery disease and has had previous coronary artery bypass graft surgery done twice; history of peripheral arterial disease and vasculopathy; history of diabetic polyneuropathy as noted; history of left breast carcinoma and underwent a left breast lumpectomy many years ago. FAMILY HISTORY: Positive for diabetes and hypertension. SOCIAL HISTORY: The patient has a supportive family. No known substance use. REVIEW OF SYSTEMS: As mentioned above, admits to generalized body weakness with episodic dizziness and lightheadedness, worse on the day of admission. No chest pains or palpitations, but her oral intake has been variable with nausea and dyspepsia and vague upper abdominal pains. PHYSICAL EXAMINATION: GENERAL: This is an average build female, in no apparent distress. VITAL SIGNS: Blood pressure of 140/80, pulse of 70 beats per minute and regular, temperature 98, respirations 20, height is 5 feet 4 inches, weight is 120 pounds. HEENT: Head normocephalic. Eyes anicteric with pink conjunctivae. Funduscopy not possible at this time. Ears, nose, and throat otherwise normal. NECK: Supple. Thyroid gland is normal in size. No carotid bruits or any cervical adenopathy. CARDIOPULMONARY: Adynamic precordium. S1, S2 are rapid and regular. LUNGS: Clear to auscultation. ABDOMEN: Flat, soft, with positive bowel sounds. EXTREMITIES: No peripheral edema. Pulses are +2 bilaterally. Glucose levels have been extremely fluctuating and ranging from 70 to 239 to 332 and 404 and 455 mg/dL. The fasting glucose this morning was 70 and they held the morning Humalog which resulted in higher glucose levels at lunchtime of 279. It was 141 at bedtime last night. ASSESSMENT: This is an 82-year-old female with symptomatic hypoglycemia and extremes of glycemic fluctuations with most likely having underlying autonomic neuropathy contributing to the extremes of glycemic fluctuations as noted thereof. PLAN OF MANAGEMENT: We will modify her coverage scale with a very low-dose algorithm using Humalog insulin to obviate hypoglycemia and detailed orders have been given. We will also modify her basal and bolus insulin drug combination to a much lower insulin regimen with Humalog given just 5 minutes before meals as ordered. We will also add basal insulin at a much lower dose of Levemir given as 6 units subcu at bedtime daily. We will titrate incrementally as indicated to optimize metabolic control. We will follow with you. Myrtle Moon MD
[2018-06-15] MEDS: Levothyroxine 125 MCG TAB PO SCH (05:50)
[2018-06-15] MEDS: Insulin Lispro 1 UNITS/0.01 ML SC SCH (08:42)
[2018-06-15] MEDS: Insulin Lispro (humaLOG) LOW Coverage SC SCH ×3 (08:44→21:34)
[2018-06-15] MEDS: Enoxaparin 40 mg Syringe SC SCH (10:20)
[2018-06-15] MEDS ORDERED: Insulin Detemir 100 units/ml Vial (Levemir) SC SCH ×2 (11:09→13:52)
--- NOTE | 2018-06-15 13:13 | CP.PCM.PN ---
<Avery Bruner - Last Filed: 06/15/18 13:10> Subjective - Date & Time of Evaluation Date of Evaluation: 06/15/18 Time of Evaluation: 13:10 - Subjective Subjective: Medicine Progress Note for Dr. Flores 82F seen and evaluated at bedside this morning. Patient's BGL 300+ overnight and 400+ on two accuchecks this morning. Endocrinology is on board, awaiting recommendations. Denies symptoms of hypoglycemia. Otherwise, no complaints. Denies f/c, n/v/d, SOB, CP, or urinary symptoms. Objective - Vital Signs/Intake and Output Vital Signs (last 24 hours): Temp Pulse Resp BP Pulse Ox 98.2 F 64 20 150/67 97 06/15/18 08:39 06/15/18 10:20 06/15/18 08:39 06/15/18 10:20 06/15/18 08:39 Intake and Output: 06/15/18 06/15/18 06:59 18:59 Intake Total 120 Balance 120 - Medications Medications: Current Medications Aspirin (Aspirin Chewable) 81 mg PO DAILY [facility] Last Admin: 06/15/18 10:19 Dose: 81 mg Carvedilol (Coreg) 12.5 mg PO BID [facility] 234 [facility]S [facility] Last Admin: 06/15/18 10:19 Dose: 12.5 mg Dextrose (Dextrose 50% Inj) 0 ml IV STAT PRN; Protocol PRN Reason: Hypoglycemia Protocol Enoxaparin Sodium (Lovenox) 40 mg SC DAILY [facility] 234 [facility]S [facility]; Protocol Last Admin: 06/15/18 10:20 Dose: 40 mg Furosemide (Lasix) 20 mg PO DAILY [facility] 234 [facility]S [facility] Last Admin: 06/15/18 10:20 Dose: 20 mg Dextrose (Dextrose 5% In Water 1000 Ml) 1,000 mls @ 0 mls/hr IV .Q0M PRN; Protocol PRN Reason: Hypoglycemia Protocol Insulin Detemir (Levemir) 8 unit SC HS [facility] 234 B[facility]S [facility] Insulin Human Lispro (Humalog) 6 units SC AC [facility] 234 [facility]S [facility] Last Admin: 06/15/18 08:42 Dose: 6 units Insulin Human Lispro (Humalog Low) 0 units SC ACHS [facility] 234 [facility]EDS [facility]; Protocol Last Admin: 06/15/18 08:44 Dose: 3 unit Isosorbide Mononitrate (Imdur) 60 mg PO DAILY [facility] 234 [facility]S [facility] Last Admin: 03/26/19 10:19 Dose: 60 mg Levothyroxine Sodium (Synthroid) 125 mcg PO 0600 [facility] 234 [facility]S [facility] Last Admin: 06/15/18 05:50 Dose: 125 mcg Lisinopril (Zestril) 2.5 mg PO DAILY [facility] 234 [facility]S [facility] Last Admin: 06/15/18 10:20 Dose: 2.5 mg - Labs Labs: 06/13/18 05:00 06/13/18 05:00 - Constitutional Appears: Well, Non-toxic, No Acute Distress - Head Exam Head Exam: ATRAUMATIC, NORMAL INSPECTION, NORMOCEPHALIC - Eye Exam Eye Exam: EOMI, Normal appearance, PERRL - ENT Exam ENT Exam: Mucous Membranes Moist, Normal Exam - Respiratory Exam Respiratory Exam: Clear to Ausculation Bilateral, NORMAL BREATHING PATTERN - Cardiovascular Exam Cardiovascular Exam: REGULAR RHYTHM, +S1, +S2, Murmur (last systolic murmur ) - GI/Abdominal Exam GI & Abdominal Exam: Soft, Normal Bowel Sounds. 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 Plan: Hypoglycemia in IDDM2 - Increased to lispro 6u AC - Increased Levemir dosage to 8u HS following hyperglycemic episodes this morning - Accuchecks ACHS - Carbohydrate Consistent Diet - Hypoglycemia protocol - Supervisor Fur Dressing consulted, all recommendations appreciated - Pending further Endocrinology recommendations CAD s/p CABG - EKG showed NSR without ST segment changes - Continue home Coreg, ASA, Imdur, and Lasix Hypothyroidism - Continue home Synthroid HTN - Continue home Lisinopril PPX DVT: Lovenox GI: Not indicated Patient plan reviewed and discussed with Dr. Sandra Bruner PGY1 <Lori Flores - Last Filed: 06/15/18 15:51> Objective - Vital Signs/Intake and Output Vital Signs (last 24 hours): Temp Pulse Resp BP Pulse Ox 98.2 F 64 20 150/67 97 06/15/18 08:39 06/15/18 10:20 06/15/18 08:39 06/15/18 10:20 06/15/18 08:39 Intake and Output: 06/15/18 06/15/18 06:59 18:59 Intake Total 120 Balance 120 - Medications Medications: Current Medications Aspirin (Aspirin Chewable) 81 mg PO DAILY [facility] 234 [facility]S [facility] Last Admin: 06/15/18 10:19 Dose: 81 mg Carvedilol (Coreg) 12.5 mg PO BID [facility] 234 [facility]S [facility] Last Admin: 06/15/18 10:19 Dose: 12.5 mg Dextrose (Dextrose 50% Inj) 0 ml IV STAT PRN; Protocol PRN Reason: Hypoglycemia Protocol Enoxaparin Sodium (Lovenox) 40 mg SC DAILY [facility] 234 [facility]S [facility]; Protocol Last Admin: 06/15/18 10:20 Dose: 40 mg Furosemide (Lasix) 20 mg PO DAILY [facility] 234 [facility]S [facility] Last Admin: 06/15/18 10:20 Dose: 20 mg Dextrose (Dextrose 5% In Water 1000 Ml) 1,000 mls @ 0 mls/hr IV .Q0M PRN; Prot ocol PRN Reason: Hypoglycemia Protocol Insulin Detemir (Levemir) 10 unit SC HS [facility]CLUDE 234 BEDS [facility] Insulin Human Lispro (Humalog Low) 0 units SC ACHS [facility] 234 BEDS [facility]; Protocol Insulin Human Lispro (Humalog) 10 units SC AC [facility]CLUDE 234 BEDS [facility] Isosorbide Mononitrate (Imdur) 60 mg PO DAILY [facility] 234 [facility]S [facility] Last Admin: 06/15/18 10:19 Dose: 60 mg Levothyroxine Sodium (Synthroid) 125 mcg PO 0600 [facility] 234 [facility]S [facility] Last Admin: 06/15/18 05:50 Dose: 125 mcg Lisinopril (Zestril) 2.5 mg PO DAILY [facility] 234 [facility]EDS [facility] Last Admin: 06/15/18 10:20 Dose: 2.5 mg - Labs Labs: 06/13/18 05:00 06/13/18 05:00 Attending/Attestation - Attestation I have personally seen and examined this patient.: Yes I have fully participated in the care of the patient.: Yes I have reviewed all pertinent clinical information, including history, physical exam and plan: Yes Notes (Text): 06/15/18 15:50 82 year old female with past medical history of diabetes, hypertension, CAD s/p CABG and breast cancer who is admitted for hypoglycemia. Patient's fingersticks have been labile over past few days, still poorly controlled with fingersticks >500 today. Endocrinology is following and has increased her levemir and lispro doses today. Will continue to monitor fingersticks closely and adjust insulin regimen accordingly. Lori Flores MD Hospitalist.
[2018-06-15] MEDS ORDERED: Insulin Lispro 1 UNITS/0.01 ML SC STA (13:41)
[2018-06-15] MEDS ORDERED: Insulin Lispro 1 UNITS/0.01 ML SC SCH ×2 (13:51→16:30)
--- NOTE | 2018-06-15 13:56 | CP.PCM.PCO ---
Physician Communication Note - Physician Communication Note Physician Communication Note: gluc ac lunch 463,Humalog increased 10 AC,Levemir increased 10 hs,per endo.
[2018-06-15 16:37] LABS: ALB/GLOB RATIO 1.1 (1.1-1.8); ALBUMIN 3.6 g/dL (3.0-4.8); ALT/SGPT 13 U/L (7-56); AST/SGOT 35 U/L (14-36); BLOOD UREA NITROGEN 30 mg/dL (7-21); CALCIUM 9.3 mg/dL (8.4-10.5); GFR NON-AFRICAN AMERICAN 53
--- NOTE | 2018-06-15 19:30 | PN ---
DATE: 06/15/2018 ENDOSCOPY FOLLOWUP NOTE SUBJECTIVE: Gina Ceja is in room 375. This is a 82-year-old female with recent uncontrolled type 1 insulin-dependent diabetes with extremes of glycemic fluctuations with initial very low glucose values with symptomatic hypoglycemia and associated neuroglycopenic and hyperadrenergic manifestations of the same. However, now with the intercurrent hospitalizations we have noticed more erratic and fluctuating glycemic values as expected are noted. Her oral intake has remained quite variable at this time although she swears she eats enough portions per meal as noted. Her glucose levels have as mentioned were initially quite hypoglycemic and now with overnight supervening hyperglycemic accelerations as noted thereof. Her glucose values have ranged from 322 to 406 to 473 and over 500 mg/dL. Her latest glucose now is 299 mg/dL. Her chemistry showed a BUN of 18, sodium 133, potassium 5.0, chloride 98, CO2 of 29, glucose 336 and creatinine 0.7. ASSESSMENT: This is an 82-year-old female with uncontrolled and decompensated type 1 insulin-dependent diabetes with extremes of glycemic fluctuations from symptomatic hypoglycemia and associated neuroglycopenic and hyperadrenergic manifestations to marked hyperglycemic accelerations on a modified insulin dosed regimen as given. She also has diabetic microvascular complications of retinopathy, polyneuropathy and she has diabetic macrovascular complications of coronary artery disease and peripheral vasculopathy as noted. She clearly also has concomitant autonomic neuropathy making it extremely difficult for the extreme metabolic lability of her blood glucose levels as expected with patient predilection for extremes of hypo to hyperglycemic accelerations as expected thereof. PLAN OF MANAGEMENT: We will modify once again her basal and bolus insulin regimen to adapt to the extremes of glycemic fluctuations and hyperglycemic accelerations as noted thereof. We will increase her Humalog to 10 units t.i.d. before meals as ordered. We will also order basal insulin at a higher dose of 10 units of Levemir at bedtime daily as given. We will obtain serial chemistries and supplement accordingly as needed. We will initiate a basal and bolus insulin regimen to optimize metabolic control. We will follow and advise accordingly. Myrtle Moon MD
[2018-06-16 00:25] VITALS: O2SAT 96
[2018-06-16] MEDS: Levothyroxine 125 MCG TAB PO SCH (06:29)
[2018-06-16 06:51] VITALS: RESP 16; TEMP 98.2
[2018-06-16 07:42] LABS: ALB/GLOB RATIO 1.1 (1.1-1.8); ALBUMIN 3.5 g/dL (3.0-4.8); ALT/SGPT 22 U/L (7-56); AST/SGOT 31 U/L (14-36); BLOOD UREA NITROGEN 26 mg/dL (7-21); GFR NON-AFRICAN AMERICAN > 60
[2018-06-16] MEDS: Insulin Lispro (humaLOG) LOW Coverage SC SCH ×3 (08:59→21:49)
[2018-06-16] MEDS: Insulin Lispro 1 UNITS/0.01 ML SC SCH ×3 (09:00→18:16)
[2018-06-16] MEDS: Enoxaparin 40 mg Syringe SC SCH (09:03)
--- NOTE | 2018-06-16 12:19 | CP.PCM.PCO ---
Physician Communication Note - Physician Communication Note Physician Communication Note: Pt. sugar better this am, 222, after Humalog adjustment,
--- NOTE | 2018-06-16 13:40 | CP.PCM.DIS ---
<Avery Bruner - Last Filed: 06/16/18 13:37> Provider - Provider Date of Admission: 06/14/18 15:22 Attending physician: Lori Flores MD Primary care physician: Jayy Barney MD Consults: 06/12/18 13:11 Diabetic Education Referral Routine Comment: Physician Instructions: Reason For Exam: Persistent AM hypoglycemia 06/14/18 08:45 Endocrinology Consult Routine Comment: Consulting Provider: Myrtle Moon Consulting Physician: Myrtle Moon Reason for Consult: brittle diabetes Time Spent in preparation of Discharge (in minutes): 60 Hospital Course - Lab Results Lab Results: Micro Results 06/12/18 13:00 Urine Random Urine Culture - Final MULTIPLE SPECIES. PROBABLE CONTAMINATION. Most Recent Lab Values WBC 5.7 10^3/uL (4.5-11.0) 06/13/18 05:00 RBC 3.97 10^6/uL (3.5-6.1) 06/13/18 05:00 Hgb 11.8 g/dL (12.0-16.0) L 06/13/18 05:00 Hct 37.0 % (36.0-48.0) 06/13/18 05:00 MCV 93.2 fl (80.0-105.0) 06/13/18 05:00 MCH 29.7 pg (25.0-35.0) 06/13/18 05:00 MCHC 31.9 g/dl (31.0-37.0) 06/13/18 05:00 RDW 13.8 % (11.5-14.5) 06/13/18 05:00 Plt Count 216 10^3/uL (120.0-450.0) 06/13/18 05:00 MPV 9.2 fl (7.0-11.0) 06/13/18 05:00 Neut % (Auto) 59.8 % (50.0-68.0) 06/13/18 05:00 Lymph % (Auto) 25.7 % (22.0-35.0) 06/13/18 05:00 [place] % (Auto) 9.8 % (1.0-6.0) H 06/13/18 05:00 Eos % (Auto) 4.2 % (1.5-5.0) 06/13/18 05:00 Baso % (Auto) 0.5 % (0.0-3.0) 06/13/18 05:00 Lymph # (Auto) 1.5 (1.2-3.4) 06/13/18 05:00 [place] # (Auto) 0.6 (0.1-0.6) 06/13/18 05:00 Eos # (Auto) 0.2 (0.0-0.7) 06/13/18 05:00 Baso # (Auto) 0.03 K/mm3 (0.0-2.0) 06/13/18 05:00 Absolute Neuts (auto) 3.42 (1.4-6.5) 06/13/18 05:00 Sodium 134 mmol/L (132-148) 06/16/18 06:45 Potassium 4.7 mmol/L (3.6-5.0) 06/16/18 06:45 Chloride 99 mmol/L (98-107) 06/16/18 06:45 Carbon Dioxide 26 mmol/L (21-33) 06/16/18 06:45 Anion Gap 13 (10-20) 06/16/18 06:45 BUN 26 mg/dL (7-21) H 06/16/18 06:45 Creatinine 0.7 mg/dl (0.7-1.2) 06/16/18 06:45 Est GFR ( Amer) > 60 06/16/18 06:45 Est GFR (Non-Af Amer) > 60 06/16/18 06:45 POC Glucose (mg/dL) 264 mg/dL (65-110) H 06/16/18 11:20 Random Glucose 179 mg/dL (70-110) H 06/16/18 06:45 Calcium 9.0 mg/dL (8.4-10.5) 06/16/18 06:45 Phosphorus 3.4 mg/dL (2.5-4.5) 06/13/18 05:00 Magnesium 1.9 mg/dL (1.7-2.2) 06/13/18 05:00 Total Bilirubin 0.7 mg/dL (0.2-1.3) 06/16/18 06:45 AST 31 U/L (14-36) 06/16/18 06:45 ALT 22 U/L (7-56) 06/16/18 06:45 Alkaline Phosphatase 63 U/L (38-126) 06/16/18 06:45 Lactate Dehydrogenase 628 U/L (333-699) 06/12/18 10:00 Total Creatine Kinase 269 U/L (35-230) H 06/13/18 05:00 CK-MB (CK-2) 2.5 ng/mL (0.0-3.6) 06/13/18 05:00 CK-MB (CK-2) % 1.2 % (2.5-3.0) L 06/12/18 10:00 Troponin I < 0.01 ng/mL 06/12/18 10:00 Total Protein 6.8 g/dL (5.8-8.3) 06/16/18 06:45 Albumin 3.5 g/dL (3.0-4.8) 06/16/18 06:45 Globulin 3.3 gm/dL 06/16/18 06:45 Albumin/Globulin Ratio 1.1 (1.1-1.8) 06/16/18 06:45 Urine Color Yellow (YELLOW) 06/12/18 13:00 Urine Appearance Clear (CLEAR) 06/12/18 13:00 Urine pH 7.0 (4.7-8.0) 06/12/18 13:00 Ur Specific [place] 1.010 (1.005-1.035) 06/12/18 13:00 Urine Protein Negative mg/dL (<30 mg/dL) 06/12/18 13:00 Urine Glucose (UA) >=1000 mg/dL (NEGATIVE) 06/12/18 13:00 Urine Ketones Negative mg/dL (NEGATIVE) 06/12/18 13:00 Urine Blood Negative (NEGATIVE) 06/12/18 13:00 Urine Nitrate Negative (NEGATIVE) 06/12/18 13:00 Urine Bilirubin Negative (NEGATIVE) 06/12/18 13:00 Urine Urobilinogen 0.2 E.U./dL (<1 E.U./dL) 06/12/18 13:00 Ur Leukocyte Esterase Trace Aries/uL (NEGATIVE) H 06/12/18 13:00 Urine RBC 0 - 2 /hpf (0-2) 06/12/18 13:00 Urine WBC 2 - 5 /hpf (0-6) 06/12/18 13:00 Ur Epithelial Cells 3 - 4 /hpf (0-5) 06/12/18 13:00 Calcium Oxalate Crystal Small /hpf (NONE) 06/12/18 13:00 Amorphous Sediment Few /hpf (NONE) 06/12/18 13:00 Urine Bacteria Mod /hpf (NONE) 06/12/18 13:00 Urine Other Uyeast /hpf 06/12/18 13:00 - Hospital Course Hospital Course: 82 year old female with a past medical history significant for IDDM1 (Diagnosed at age 22), CAD s/p two CABGs, HTN, hypothyroidism, and Breast Cancer (in remission s/p [employer] and lumpectomy) who presented to our emergency department for hypoglycemia. Patient was accompanied by her daughter at bedside in the ED. Patients daughter called 911 after noting mother confused/AMS and, after EMS arrived, her blood sugar was found to be 30. She was given an amp of dextrose and her AMS resolved as well as her hypoglycemia prior to arrival in the ED. P darren was taking Levemir 14u HS (recently switched from Lantus 10u HS) and Humalog 6u AC. She has good compliance with her insulin and has adequate PO intake of a balanced diet with small snacks in between meals and at bedtime. Of note, patient had a log with her recorded blood sugars and there are several instances of AM hypoglycemia. Also of note, patient was recently admitted on multiple occasions for similar complaints. In the ED, fasting glucose 99 with CMP glucose 169. CXR showed no active disease. EKG showed NSR at 66bpm with no ST/T wave changes. Patient was admitted to the hospitalist service for observation of hypoglycemia. Upon admission, patient started on Levemir 10u HS, ISS-low with hypoglycemia protocol, accuchecks, and diabetic education referral. Home medications coreg, ASA, Imdur, Synthroid, Lisinopril, Lasix continued. Patient had multiple episodes of hyperglycemia >500. Endocrinology was consulted and after adjustments of insulin, finalized the dosage with Humalog 8u AC and Levemir 10u HS. Patient's blood sugars remained within normal limits for over 24 hours with this regimen. Cleared for discharge by endocrinology on this new regimen. Patient verbalized understand of treatment plan. All risks and benefits were discussed. All questions and concerns were answered. Patient instructed to follow up with PMD and endocrinology within 7 days of discharge. Patient's new insulin prescriptions were brought to bedside by pharmacy. Above is a brief summary, for a detailed hospital course please refer to medical records. - Date & Time of H&P Date of H&P: 06/12/18 Time of H&P: 13:18 Discharge Exam - Head Exam Head Exam: ATRAUMATIC, NORMAL INSPECTION, NORMOCEPHALIC - Eye Exam Eye Exam: EOMI - ENT Exam ENT Exam: Mucous Membranes Moist - Respiratory Exam Respiratory Exam: NORMAL BREATHING PATTERN. absent: Wheezes, Respiratory Distress - Cardiovascular Exam Cardiovascular Exam: REGULAR RHYTHM, +S1, +S2, Systolic Murmur. absent: Tachycardia - GI/Abdominal Exam GI & Abdominal Exam: Normal Bowel Sounds, Soft. absent: Tenderness - Extremities Exam Extremities exam: normal inspection, pedal pulses present - Neurological Exam Neurological exam: Alert, Oriented x3 - Psychiatric Exam Psychiatric exam: Normal Affect, Normal Mood - Skin Skin Exam: Dry, Intact, Normal Color, Warm Discharge Plan - Discharge Medications Prescriptions: Insulin Glargine, Recombina [Lantus] 10 unit SC HS 30 Days #30 ml RX: Insulin Lispro [humALOG] 8 units SC AC 14 Days #42 ml - Follow Up Plan Condition: FAIR Disposition: HOME/ ROUTINE Instructions: Low Blood Sugar, Adult (DC) Additional Instructions: Please follow up with your primary medical doctor, Dr. Barney, within 7 days of discharge. Please follow up with Dr. Moon, the center medical and lab director, within 7 days of discharge. Your insulin regimen has been updated. You will be discharged with Lantus 10units at night and Humalog 8units taken 5 minutes before meals. Please check your blood sugar levels and record values to bring to your next follow up appointment. If you experience symptoms of hypoglycemia, please drink orange juice. Please resume all home medications as prescribed including Coreg 12.5mg BID, Aspirin 81mg QD, Imdur 60mg QD, Lasix 20mg QD, Lisinopril 2.5mg QD, and Synthroid 125mcg QD. If symptoms worsen, please promptly return to the nearest emergency department. Referrals: Jayy Barney MD [Primary Care Provider] - Follow up with primary Red,Myrtle Raza MD [Medical Doctor] - <Sandra,Anwar A - Last Filed: 06/16/18 15:51> Provider - Provider Date of Admission: 06/14/18 15:22 Attending physician: Lori Flores MD Primary care physician: Jayy Barney MD Consults: 06/12/18 13:11 Diabetic Education Referral Routine Comment: Physician Instructions: Reason For Exam: Persistent AM hypoglycemia 06/14/18 08:45 Endocrinology Consult Routine Comment: Consulting Provider: Myrtle Moon Consulting Physician: Myrtle Moon Reason for Consult: [facility] Hospital Course - Lab Results Lab Results: Micro Results 06/12/18 13:00 Urine Random Urine Culture - Final MULTIPLE SPECIES. PROBABLE CONTAMINATION. Most Recent Lab Values WBC 5.7 10^3/uL (4.5-11.0) 06/13/18 05:00 RBC 3.97 10^6/uL (3.5-6.1) 06/13/18 05:00 Hgb 11.8 g/dL (12.0-16.0) L 06/13/18 05:00 Hct 37.0 % (36.0-48.0) 06/13/18 05:00 MCV 93.2 fl (80.0-105.0) 06/13/18 05:00 MCH 29.7 pg (25.0-35.0) 06/13/18 05:00 MCHC 31.9 g/dl (31.0-37.0) 06/13/18 05:00 RDW 13.8 % (11.5-14.5) 06/13/18 05:00 Plt Count 216 10^3/uL (120.0-450.0) 06/13/18 05:00 MPV 9.2 fl (7.0-11.0) 06/13/18 05:00 Neut % (Auto) 59.8 % (50.0-68.0) 06/13/18 05:00 Lymph % (Auto) 25.7 % (22.0-35.0) 06/13/18 05:00 [place] % (Auto) 9.8 % (1.0-6.0) H 06/13/18 05:00 Eos % (Auto) 4.2 % (1.5-5.0) 06/13/18 05:00 Baso % (Auto) 0.5 % (0.0-3.0) 06/13/18 05:00 Lymph # (Auto) 1.5 (1.2-3.4) 06/13/18 05:00 [place] # (Auto) 0.6 (0.1-0.6) 06/13/18 05:00 Eos # (Auto) 0.2 (0.0-0.7) 06/13/18 05:00 Baso # (Auto) 0.03 K/mm3 (0.0-2.0) 06/13/18 05:00 Absolute Neuts (auto) 3.42 (1.4-6.5) 06/13/18 05:00 Sodium 134 mmol/L (132-148) 06/16/18 06:45 Potassium 4.7 mmol/L (3.6-5.0) 06/16/18 06:45 Chloride 99 mmol/L (98-107) 06/16/18 06:45 Carbon Dioxide 26 mmol/L (21-33) 06/16/18 06:45 Anion Gap 13 (10-20) 06/16/18 06:45 BUN 26 mg/dL (7-21) H 06/16/18 06:45 Creatinine 0.7 mg/dl (0.7-1.2) 06/16/18 06:45 Est GFR ( Amer) > 60 06/16/18 06:45 Est GFR (Non-Af Amer) > 60 06/16/18 06:45 POC Glucose (mg/dL) 264 mg/dL (65-110) H 06/16/18 11:20 Random Glucose 179 mg/dL (70-110) H 06/16/18 06:45 Calcium 9.0 mg/dL (8.4-10.5) 06/16/18 06:45 Phosphorus 3.4 mg/dL (2.5-4.5) 06/13/18 05:00 Magnesium 1.9 mg/dL (1.7-2.2) 06/13/18 05:00 Total Bilirubin 0.7 mg/dL (0.2-1.3) 06/16/18 06:45 AST 31 U/L (14-36) 06/16/18 06:45 ALT 22 U/L (7-56) 06/16/18 06:45 Alkaline Phosphatase 63 U/L (38-126) 06/16/18 06:45 Lactate Dehydrogenase 628 U/L (333-699) 06/12/18 10:00 Total Creatine Kinase 269 U/L (35-230) H 06/13/18 05:00 CK-MB (CK-2) 2.5 ng/mL (0.0-3.6) 06/13/18 05:00 CK-MB (CK-2) % 1.2 % (2.5-3.0) L 06/12/18 10:00 Troponin I < 0.01 ng/mL 06/12/18 10:00 Total Protein 6.8 g/dL (5.8-8.3) 06/16/18 06:45 Albumin 3.5 g/dL (3.0-4.8) 06/16/18 06:45 Globulin 3.3 gm/dL 06/16/18 06:45 Albumin/Globulin Ratio 1.1 (1.1-1.8) 06/16/18 06:45 Urine Color Yellow (YELLOW) 06/12/18 13:00 Urine Appearance Clear (CLEAR) 06/12/18 13:00 Urine pH 7.0 (4.7-8.0) 06/12/18 13:00 Ur Specific [place] 1.010 (1.005-1.035) 06/12/18 13:00 Urine Protein Negative mg/dL (<30 mg/dL) 06/12/18 13:00 Urine Glucose (UA) >=1000 mg/dL (NEGATIVE) 06/12/18 13:00 Urine Ketones Negative mg/dL (NEGATIVE) 06/12/18 13:00 Urine Blood Negative (NEGATIVE) 06/12/18 13:00 Urine Nitrate Negative (NEGATIVE) 06/12/18 13:00 Urine Bilirubin Negative (NEGATIVE) 06/12/18 13:00 Urine Urobilinogen 0.2 E.U./dL (<1 E.U./dL) 06/12/18 13:00 Ur Leukocyte Esterase Trace Aries/uL (NEGATIVE) H 06/12/18 13:00 Urine RBC 0 - 2 /hpf (0-2) 06/12/18 13:00 Urine WBC 2 - 5 /hpf (0-6) 06/12/18 13:00 Ur Epithelial Cells 3 - 4 /hpf (0-5) 06/12/18 13:00 Calcium Oxalate Crystal Small /hpf (NONE) 06/12/18 13:00 Amorphous Sediment Few /hpf (NONE) 06/12/18 13:00 Urine Bacteria Mod /hpf (NONE) 06/12/18 13:00 Urine Other Uyeast /hpf 06/12/18 13:00 Attending/Attestation - Attestation I have personally seen and examined this patient.: Yes I have fully participated in the care of the patient.: Yes I have reviewed all pertinent clinical information, including history, physical exam and plan: Yes Notes (Text): 06/16/18 15:48 82 year old female with past medical history of diabetes, hypertension, CAD s/p CABG and breast cancer who was admitted for hypoglycemia. Patient's fingersticks have been labile over past few days ranging from hypoglycemic to hyperglycemic episodes. She was being followed by endocrinology and her insulin regimen was adjusted as above. Her fingersticks have been better controlled over the past 24 hours and she is cleared for discharge by endocrinology with close outpatient follow up. Patient will be discharged home to follow up with pmd. Follow up with endocrinology. Monitor FS closely. Lori Flores MD Hospitalist.
--- NOTE | 2018-06-16 16:27 | PN ---
DATE: 06/16/2018 ENDOSCOPIC FOLLOWUP NOTE In room 375. SUBJECTIVE: This is an 82-year-old female with recent uncontrolled type 1 insulin-dependent diabetes, now being followed closely for metabolic management. Her glycemic levels are fluctuating with extreme glycemic fluctuations from symptomatic hypoglycemia to marked hyperglycemic accelerations as noted overnight. Her glucose levels today are fluctuating, but improved and her glucose levels have ranged from 145 to 222 and 264 mg/dL. Her bedtime glucose was 75 only because of the over abundant insulin coverage as given during the day as noted. LABORATORY DATA: Her chemistry showed BUN of 26, sodium 134, potassium 4.7, chloride 99, CO2 of 26, glucose 179, and creatinine 0.7. ASSESSMENT: This is an 82-year-old female with recent uncontrolled type 1 insulin-dependent diabetes with extremes of glycemic fluctuations and now being followed closely for metabolic management. With a very small body mass index and frail body, we would be very careful to give her too much Humalog and/or basal insulin because of the extreme hypersensitivity to insulin action as noted. To management, we continue the modified basal and bolus insulin regimen to allow for dose equilibration and keep her on the Humalog given as 8 units three times a day before meals as ordered. We will continue the Levemir given as 10 units subcutaneous at bedtime daily as given. We will titrate incremental as indicated to optimize metabolic control. We will follow and advice accordingly. Myrtle Moon MD
[2018-06-16] MEDS ORDERED: Insulin Detemir 100 units/ml Vial (Levemir) SC SCH (17:47)
[2018-06-17] MEDS: Levothyroxine 125 MCG TAB PO SCH (05:19)
[2018-06-17] MEDS: Insulin Lispro (humaLOG) LOW Coverage SC SCH ×2 (08:55→12:36)
[2018-06-17] MEDS: Enoxaparin 40 mg Syringe SC SCH (09:08)
[2018-06-17] MEDS: Insulin Lispro 1 UNITS/0.01 ML SC SCH ×2 (09:09→13:12)
[2018-06-17 11:54] VITALS: BP 137/60; PULSE 63
--- NOTE | 2018-06-17 13:39 | CP.PCM.DIS ---
<JacksonTomy R - Last Filed: 06/17/18 13:36> Provider - Provider Date of Admission: 06/14/18 15:22 Attending physician: Lori Flores MD Primary care physician: Jayy Barney MD Consults: 06/12/18 13:11 Diabetic Education Referral Routine Comment: Physician Instructions: Reason For Exam: Persistent AM hypoglycemia 06/14/18 08:45 Endocrinology Consult Routine Comment: Consulting Provider: Myrtle Moon Consulting Physician: Myrtle Moon Reason for Consult: brittle diabetes Time Spent in preparation of Discharge (in minutes): 32 Diagnosis - Discharge Diagnosis (1) Hypoglycemia Status: Acute Priority: High (2) Hyperglycemia due to type 1 diabetes mellitus Status: Chronic Priority: High Hospital Course - Lab Results Lab Results: Micro Results 06/12/18 13:00 Urine Random Urine Culture - Final MULTIPLE SPECIES. PROBABLE CONTAMINATION. Most Recent Lab Values WBC 5.7 10^3/uL (4.5-11.0) 06/13/18 05:00 RBC 3.97 10^6/uL (3.5-6.1) 06/13/18 05:00 Hgb 11.8 g/dL (12.0-16.0) L 06/13/18 05:00 Hct 37.0 % (36.0-48.0) 06/13/18 05:00 MCV 93.2 fl (80.0-105.0) 06/13/18 05:00 MCH 29.7 pg (25.0-35.0) 06/13/18 05:00 MCHC 31.9 g/dl (31.0-37.0) 06/13/18 05:00 RDW 13.8 % (11.5-14.5) 06/13/18 05:00 Plt Count 216 10^3/uL (120.0-450.0) 06/13/18 05:00 MPV 9.2 fl (7.0-11.0) 06/13/18 05:00 Neut % (Auto) 59.8 % (50.0-68.0) 06/13/18 05:00 Lymph % (Auto) 25.7 % (22.0-35.0) 06/13/18 05:00 [place] % (Auto) 9.8 % (1.0-6.0) H 06/13/18 05:00 Eos % (Auto) 4.2 % (1.5-5.0) 06/13/18 05:00 Baso % (Auto) 0.5 % (0.0-3.0) 06/13/18 05:00 Lymph # (Auto) 1.5 (1.2-3.4) 06/13/18 05:00 [place] # (Auto) 0.6 (0.1-0.6) 06/13/18 05:00 Eos # (Auto) 0.2 (0.0-0.7) 06/13/18 05:00 Baso # (Auto) 0.03 K/mm3 (0.0-2.0) 06/13/18 05:00 Absolute Neuts (auto) 3.42 (1.4-6.5) 06/13/18 05:00 Sodium 134 mmol/L (132-148) 06/16/18 06:45 Potassium 4.7 mmol/L (3.6-5.0) 06/16/18 06:45 Chloride 99 mmol/L (98-107) 06/16/18 06:45 Carbon Dioxide 26 mmol/L (21-33) 06/16/18 06:45 Anion Gap 13 (10-20) 06/16/18 06:45 BUN 26 mg/dL (7-21) H 06/16/18 06:45 Creatinine 0.7 mg/dl (0.7-1.2) 06/16/18 06:45 Est GFR ( Amer) > 60 06/16/18 06:45 Est GFR (Non-Af Amer) > 60 06/16/18 06:45 POC Glucose (mg/dL) 203 mg/dL (65-110) H 06/17/18 11:56 Random Glucose 179 mg/dL (70-110) H 06/16/18 06:45 Calcium 9.0 mg/dL (8.4-10.5) 06/16/18 06:45 Phosphorus 3.4 mg/dL (2.5-4.5) 06/13/18 05:00 Magnesium 1.9 mg/dL (1.7-2.2) 06/13/18 05:00 Total Bilirubin 0.7 mg/dL (0.2-1.3) 06/16/18 06:45 AST 31 U/L (14-36) 06/16/18 06:45 ALT 22 U/L (7-56) 06/16/18 06:45 Alkaline Phosphatase 63 U/L (38-126) 06/16/18 06:45 Lactate Dehydrogenase 628 U/L (333-699) 06/12/18 10:00 Total Creatine Kinase 269 U/L (35-230) H 06/13/18 05:00 CK-MB (CK-2) 2.5 ng/mL (0.0-3.6) 06/13/18 05:00 CK-MB (CK-2) % 1.2 % (2.5-3.0) L 06/12/18 10:00 Troponin I < 0.01 ng/mL 06/12/18 10:00 Total Protein 6.8 g/dL (5.8-8.3) 06/16/18 06:45 Albumin 3.5 g/dL (3.0-4.8) 06/16/18 06:45 Globulin 3.3 gm/dL 06/16/18 06:45 Albumin/Globulin Ratio 1.1 (1.1-1.8) 06/16/18 06:45 Urine Color Yellow (YELLOW) 06/12/18 13:00 Urine Appearance Clear (CLEAR) 06/12/18 13:00 Urine pH 7.0 (4.7-8.0) 06/12/18 13:00 Ur Specific [place] 1.010 (1.005-1.035) 06/12/18 13:00 Urine Protein Negative mg/dL (<30 mg/dL) 06/12/18 13:00 Urine Glucose (UA) >=1000 mg/dL (NEGATIVE) 06/12/18 13:00 Urine Ketones Negative mg/dL (NEGATIVE) 06/12/18 13:00 Urine Blood Negative (NEGATIVE) 06/12/18 13:00 Urine Nitrate Negative (NEGATIVE) 06/12/18 13:00 Urine Bilirubin Negative (NEGATIVE) 06/12/18 13:00 Urine Urobilinogen 0.2 E.U./dL (<1 E.U./dL) 06/12/18 13:00 Ur Leukocyte Esterase Trace Aries/uL (NEGATIVE) H 06/12/18 13:00 Urine RBC 0 - 2 /hpf (0-2) 06/12/18 13:00 Urine WBC 2 - 5 /hpf (0-6) 06/12/18 13:00 Ur Epithelial Cells 3 - 4 /hpf (0-5) 06/12/18 13:00 Calcium Oxalate Crystal Small /hpf (NONE) 06/12/18 13:00 Amorphous Sediment Few /hpf (NONE) 06/12/18 13:00 Urine Bacteria Mod /hpf (NONE) 06/12/18 13:00 Urine Other Uyeast /hpf 06/12/18 13:00 - Hospital Course Hospital Course: 82 year old female with a past medical history significant for IDDM1 (Diagnosed at age 22), CAD s/p two CABGs, HTN, hypothyroidism, and Breast Cancer (in remission s/p [employer] and lumpectomy) who presented to our emergency department for hypoglycemia. Patient was accompanied by her daughter at bedside in the ED. Patients daughter called 911 after noting mother confused/AMS and, after EMS arrived, her blood sugar was found to be 30. She was given an amp of dextrose and her AMS resolved as well as her hypoglycemia prior to arrival in the ED. Patient was taking Levemir 14u HS (recently switched from Lantus 10u HS) and Humalog 6u AC. She has good compliance with her insulin and has adequate PO intake of a balanced diet with small snacks in between meals and at bedtime. Of note, patient had a log with her recorded blood sugars and there are several instances of AM hypoglycemia. Also of note, patient was recently admitted on multiple occasions for similar complaints. In the ED, fasting glucose 99 with CMP glucose 169. CXR showed no active disease. EKG showed NSR at 66bpm with no ST/T wave changes. Patient was admitted to the hospitalist service for observation of hypoglycemia. Upon admission, patient started on Levemir 10u HS, ISS-low with hypoglycemia protocol, accuchecks, and diabetic education referral. Home medications coreg, ASA, Imdur, Synthroid, Lisinopril, Lasix continued. Patient had multiple episodes of hyperglycemia >500. Endocrinology was consulted and after adjustments of insulin, finalized the dosage with Humalog 8u AC and Levemir 6u HS (the levemire will be switched to lantus 6u HS at discharge). Patient's blood sugars remained within normal limits for over 24 hours with this regimen. Cleared for discharge by endocrinology on this new regimen. Patient verbalized understand of treatment plan. All risks and benefits were discussed. All questions and concerns were answered. Patient instructed to follow up with PMD and endocrinology within 7 days of discharge. Patient's new insulin prescriptions were brought to bedside by pharmacy. Above is a brief summary, for a detailed hospital course please refer to medical records. Discharge Exam - Head Exam Head Exam: ATRAUMATIC, NORMAL INSPECTION, NORMOCEPHALIC - Additional Findings Additional findings: - Head Exam Head Exam: ATRAUMATIC, NORMAL INSPECTION, NORMOCEPHALIC - Eye Exam Eye Exam: EOMI - ENT Exam ENT Exam: Mucous Membranes Moist - Respiratory Exam Respiratory Exam: NORMAL BREATHING PATTERN. absent: Wheezes, Respiratory Distress - Cardiovascular Exam Cardiovascular Exam: REGULAR RHYTHM, +S1, +S2, Systolic Murmur. absent: Tachycardia - GI/Abdominal Exam GI & Abdominal Exam: Normal Bowel Sounds, Soft. absent: Tenderness - Extremities Exam Extremities exam: normal inspection, pedal pulses present - Neurological Exam Neurological exam: Alert, Oriented x3 - Psychiatric Exam Psychiatric exam: Normal Affect, Normal Mood - Skin Skin Exam: Dry, Intact, Normal Color, Warm Discharge Plan - Discharge Medications Prescriptions: Insulin Glargine, Recombina [Lantus] 6 unit SC HS #1 vial Insulin Lispro [humALOG] 8 units SC AC 14 Days #42 ml - Follow Up Plan Condition: FAIR Disposition: HOME/ ROUTINE Instructions: Type 1 Diabetes, Low Blood Sugar, Adult (DC), Insulin Glargine Additional Instructions: Please follow up with your primary medical doctor, Dr. Barney, within 7 days of discharge. Please follow up with Dr. Patton, the whiskey filterer, within 7 days of discharge. Your insulin regimen has been updated. It is recommended you take Lantus 6units at night and Humalog 8units taken 5 minutes before meals. Please check your blood sugar levels and record values to bring to your next follow up appointm ent. If you experience symptoms of hypoglycemia, please drink orange juice. Please resume all home medications as prescribed including Coreg 12.5mg BID, Aspirin 81mg QD, Imdur 60mg QD, Lasix 20mg QD, Lisinopril 2.5mg QD, and Synthroid 125mcg QD. If symptoms worsen, please promptly return to the nearest emergency department. Referrals: Heron Patton MD [Medical Doctor] - Jayy Barney MD [Primary Care Provider] - Follow up with primary <Lori Flores - Last Filed: 06/17/18 14:39> Provider - Provider Date of Admission: 06/14/18 15:22 Attending physician: Lori Flores MD Primary care physician: Jayy Barney MD Consults: 06/12/18 13:11 Diabetic Education Referral Routine Comment: Physician Instructions: Reason For Exam: Persistent AM hypoglycemia 06/14/18 08:45 Endocrinology Consult Routine Comment: Consulting Provider: Myrtle Moon Consulting Physician: Myrtle Moon Reason for Consult: brittle diabetes Time Spent in preparation of Discharge (in minutes): 35 Hospital Course - Lab Results Lab Results: Micro Results 06/12/18 13:00 Urine Random Urine Culture - Final MULTIPLE SPECIES. PROBABLE CONTAMINATION. Most Recent Lab Values WBC 5.7 10^3/uL (4.5-11.0) 06/13/18 05:00 RBC 3.97 10^6/uL (3.5-6.1) 06/13/18 05:00 Hgb 11.8 g/dL (12.0-16.0) L 06/13/18 05:00 Hct 37.0 % (36.0-48.0) 06/13/18 05:00 MCV 93.2 fl (80.0-105.0) 06/13/18 05:00 MCH 29.7 pg (25.0-35.0) 06/13/18 05:00 MCHC 31.9 g/dl (31.0-37.0) 06/13/18 05:00 RDW 13.8 % (11.5-14.5) 06/13/18 05:00 Plt Count 216 10^3/uL (120.0-450.0) 06/13/18 05:00 MPV 9.2 fl (7.0-11.0) 06/13/18 05:00 Neut % (Auto) 59.8 % (50.0-68.0) 06/13/18 05:00 Lymph % (Auto) 25.7 % (22.0-35.0) 06/13/18 05:00 [place] % (Auto) 9.8 % (1.0-6.0) H 06/13/18 05:00 Eos % (Auto) 4.2 % (1.5-5.0) 06/13/18 05:00 Baso % (Auto) 0.5 % (0.0-3.0) 06/13/18 05:00 Lymph # (Auto) 1.5 (1.2-3.4) 06/13/18 05:00 [place] # (Auto) 0.6 (0.1-0.6) 06/13/18 05:00 Eos # (Auto) 0.2 (0.0-0.7) 06/13/18 05:00 Baso # (Auto) 0.03 K/mm3 (0.0-2.0) 06/13/18 05:00 Absolute Neuts (auto) 3.42 (1.4-6.5) 06/13/18 05:00 Sodium 134 mmol/L (132-148) 06/16/18 06:45 Potassium 4.7 mmol/L (3.6-5.0) 06/16/18 06:45 Chloride 99 mmol/L (98-107) 06/16/18 06:45 Carbon Dioxide 26 mmol/L (21-33) 06/16/18 06:45 Anion Gap 13 (10-20) 06/16/18 06:45 BUN 26 mg/dL (7-21) H 06/16/18 06:45 Creatinine 0.7 mg/dl (0.7-1.2) 06/16/18 06:45 Est GFR ( Amer) > 60 06/16/18 06:45 Est GFR (Non-Af Amer) > 60 06/16/18 06:45 POC Glucose (mg/dL) 203 mg/dL (65-110) H 06/17/18 11:56 Random Glucose 179 mg/dL (70-110) H 06/16/18 06:45 Calcium 9.0 mg/dL (8.4-10.5) 06/16/18 06:45 Phosphorus 3.4 mg/dL (2.5-4.5) 06/13/18 05:00 Magnesium 1.9 mg/dL (1.7-2.2) 06/13/18 05:00 Total Bilirubin 0.7 mg/dL (0.2-1.3) 06/16/18 06:45 AST 31 U/L (14-36) 06/16/18 06:45 ALT 22 U/L (7-56) 06/16/18 06:45 Alkaline Phosphatase 63 U/L (38-126) 06/16/18 06:45 Lactate Dehydrogenase 628 U/L (333-699) 06/12/18 10:00 Total Creatine Kinase 269 U/L (35-230) H 06/13/18 05:00 CK-MB (CK-2) 2.5 ng/mL (0.0-3.6) 06/13/18 05:00 CK-MB (CK-2) % 1.2 % (2.5-3.0) L 06/12/18 10:00 Troponin I < 0.01 ng/mL 06/12/18 10:00 Total Protein 6.8 g/dL (5.8-8.3) 06/16/18 06:45 Albumin 3.5 g/dL (3.0-4.8) 06/16/18 06:45 Globulin 3.3 gm/dL 06/16/18 06:45 Albumin/Globulin Ratio 1.1 (1.1-1.8) 06/16/18 06:45 Urine Color Yellow (YELLOW) 06/12/18 13:00 Urine Appearance Clear (CLEAR) 06/12/18 13:00 Urine pH 7.0 (4.7-8.0) 06/12/18 13:00 Ur Specific [place] 1.010 (1.005-1.035) 06/12/18 13:00 Urine Protein Negative mg/dL (<30 mg/dL) 06/12/18 13:00 Urine Glucose (UA) >=1000 mg/dL (NEGATIVE) 06/12/18 13:00 Urine Ketones Negative mg/dL (NEGATIVE) 06/12/18 13:00 Urine Blood Negative (NEGATIVE) 06/12/18 13:00 Urine Nitrate Negative (NEGATIVE) 06/12/18 13:00 Urine Bilirubin Negative (NEGATIVE) 06/12/18 13:00 Urine Urobilinogen 0.2 E.U./dL (<1 E.U./dL) 06/12/18 13:00 Ur Leukocyte Esterase Trace Aries/uL (NEGATIVE) H 06/12/18 13:00 Urine RBC 0 - 2 /hpf (0-2) 06/12/18 13:00 Urine WBC 2 - 5 /hpf (0-6) 06/12/18 13:00 Ur Epithelial Cells 3 - 4 /hpf (0-5) 06/12/18 13:00 Calcium Oxalate Crystal Small /hpf (NONE) 06/12/18 13:00 Amorphous Sediment Few /hpf (NONE) 06/12/18 13:00 Urine Bacteria Mod /hpf (NONE) 06/12/18 13:00 Urine Other Uyeast /hpf 06/12/18 13:00 Attending/Attestation - Attestation I have personally seen and examined this patient.: Yes I have fully participated in the care of the patient.: Yes I have reviewed all pertinent clinical information, including history, physical exam and plan: Yes Notes (Text): 06/17/18 14:37 82 year old female with past medical history of diabetes, hypertension, CAD s/p CABG and breast cancer who was admitted for hypoglycemia. Patient's fingersticks initially were very labile ranging from hypoglycemic to hyperglycemic episodes. She was being followed by endocrinology and her insulin regimen was adjusted as above. Her fingersticks are now better controlled on current regimen. She is cleared for discharge by endocrinology with close outpatient follow up. Patient will be discharged home to follow up with pmd. Follow up with endocrinology. Monitor FS closely. I spoke with daughter at length yesterday. Lori Flores MD Hospitalist.
--- NOTE | 2018-06-17 19:32 | PN ---
DATE: 06/17/2018 ENDOCRINOLOGY FOLLOWUP NOTE LOCATION: Room 375. SUBJECTIVE: This is an 82-year-old female with recent uncontrolled type 1 insulin-dependent diabetes, now being followed closely for metabolic management. Her glycemic levels are fluctuating but improved and the glucose values today have ranged from 110-144 mg/dL and it was 153-203 at midday today. LABORATORY DATA: Her chemistry showed a BUN of 26, sodium 134, potassium 4.7, chloride 99, CO2 of 26, glucose 179 and creatinine 0.7. ASSESSMENT AND PLAN: So at this time, we will continue the same basal and bolus insulin regimen to allow for dose equilibration and keep her on the Humalog given as 8 units t.i.d. before meals as ordered. We will also continue the Levemir given as 6 units subcutaneous at bedtime daily as given. We will titrate incrementally as indicated to optimize metabolic control. We will follow and advise accordingly. Myrtle Moon MD
== END 2018-06-17 16:12 | disposition home health service (06) | DRG 639 ==
LOC: ED 09:20 → ERH 11:51 → 3RSO 14:17 → OBSVTOIN 06-14 15:22
PROVIDERS: ADMIT Internal Medicine; ATTEND Internal Medicine
DX: E10.649 Type 1 diabetes mellitus with hypoglycemia without coma (principal); E10.43 Type 1 diabetes mellitus with diabetic autonomic (poly)neuropathy; I10 Essential (primary) hypertension; Z79.4 Long term (current) use of insulin; Z85.3 Personal history of malignant neoplasm of breast; Z66 Do not resuscitate; E10.65 Type 1 diabetes mellitus with hyperglycemia; E10.319 Type 1 diabetes mellitus with unspecified diabetic retinopathy without macular edema; E03.9 Hypothyroidism, unspecified; E10.51 Type 1 diabetes mellitus with diabetic peripheral angiopathy without gangrene; E78.5 Hyperlipidemia, unspecified; I25.10 Atherosclerotic heart disease of native coronary artery without angina pectoris; Z95.1 Presence of aortocoronary bypass graft